=== PATIENT | female | born 1955 | race Caucasian/White ===

== ENCOUNTER 2021-01-26 01:27 | Inpatient (IN) | payer MEDICARE, MEDICAID, SELFPAY ==
[2021-01-26] VITALS (8 sets, daily range): BP systolic 106–180; BP diastolic 53–78; PULSE 55–78; RESP 15–20; TEMP 36.1–36.9; O2SAT 92–95
--- NOTE | ~2021-01-26 | XR_ITS ---
EXAMINATION: XR RIGHT HIP WITH AP PELVIS XR FEMUR, RIGHT CLINICAL INFORMATION: Fall, right hip and right femur pain rule out fracture. COMPARISON: 10/12/2017 TECHNIQUE: AP and frog-leg lateral views of the right hip and an AP view of the pelvis. AP and lateral views of the right femur. FINDINGS: There is a transverse subcapital fracture of the right proximal femur with minimal valgus angulation at the fracture site. No additional acute fractures are identified. Bones are osteopenic. There is mild osteophytes in the hips and SI joints. Enthesopathic spurring is present at the greater trochanters with fragmentation at the right greater trochanter. Degenerative spondylosis is present in the lower lumbar spine. Calcific at the sclerosis is present in the femoral and iliac arteries. Calcific atherosclerosis is present within the superficial femoral and popliteal arteries. The distal femur is intact. Imaged portion of the right knee joint is unremarkable. XR/XR hip RT w PEL1V IMPRESSION: Minimally displaced subcapital fracture of the right proximal femur. No additional fractures.
--- NOTE | ~2021-01-26 | FL_ITS ---
EXAMINATION: XR FLUOROSCOPY WITH IMAGES CLINICAL INFORMATION: Subcapital fracture of the right proximal femur. Fluoroscopic assistance is provided at the time of the surgery. COMPARISON: Right hip done on 01/26/2021. TECHNIQUE: Fluoroscopy performed by Dr. Tonny Adorno. Fluoroscopy time: 0.7 minutes DAP: 24.7 mGycm2 Images: 3 FINDINGS: Fluoroscopic spot radiographs shows interval placement of 3 radiopaque screws across the site of previously detected fracture. Radiopaque screws are in satisfactory position and appear intact. FL/FL guidance in OR IMPRESSION: Postsurgical changes of screw fixation of previously documented subcapsular fracture of the right proximal femur with intact hardware and satisfactory alignment. Please refer to the operative note for further full details.
--- NOTE | ~2021-01-26 | XR_ITS ---
EXAMINATION: XR RIGHT HIP WITH AP PELVIS XR FEMUR, RIGHT CLINICAL INFORMATION: Fall, right hip and right femur pain rule out fracture. COMPARISON: 10/12/2017 TECHNIQUE: AP and frog-leg lateral views of the right hip and an AP view of the pelvis. AP and lateral views of the right femur. FINDINGS: There is a transverse subcapital fracture of the right proximal femur with minimal valgus angulation at the fracture site. No additional acute fractures are identified. Bones are osteopenic. There is mild osteophytes in the hips and SI joints. Enthesopathic spurring is present at the greater trochanters with fragmentation at the right greater trochanter. Degenerative spondylosis is present in the lower lumbar spine. Calcific at the sclerosis is present in the femoral and iliac arteries. Calcific atherosclerosis is present within the superficial femoral and popliteal arteries. The distal femur is intact. Imaged portion of the right knee joint is unremarkable. XR/XR femur RT 2V IMPRESSION: Minimally displaced subcapital fracture of the right proximal femur. No additional fractures.
[2021-01-26] MEDS: oxyCODONE HCl Immed Release 5 MG TABLET PO (02:31)
[2021-01-26] MEDS: Acetaminophen 325 MG TABLET 975 MG PO (02:31)
--- NOTE | 2021-01-26 03:42 | ECG_ITS ---
Test Reason : FALL Blood Pressure : / mmHG Vent. Rate : 081 BPM Atrial Rate : 081 BPM P-R Int : 164 ms QRS Dur : 094 ms QT Int : 404 ms P-R-T Axes : 055 005 093 degrees QTc Int : 469 ms Normal sinus rhythm Possible Left atrial enlargement Nonspecific T wave abnormality Abnormal ECG When compared with ECG of 04-JAN-2018 11:30, Nonspecific T wave abnormality now evident in Lateral leads Heart rate has increased Referred By: Michele Gatica Electronically Signed By:JOHNIE CUEVAS MD
--- NOTE | 2021-01-26 04:01 | ED.FALL ---
HPI - Fall General Chief Complaint: Fall Stated Complaint: R hip/leg pain S/P fall (from snf) Time Seen by Provider: 01/26/21 02:15 Source: patient Mode of arrival: EMS Limitations: no limitations History of Present Illness HPI Narrative: 65-year-old female who presents emergency department for evaluation right hip and leg pain after fall. Patient states that she was outside smoking when a raccoon started chasing her. She states that she ran, tripped and fell landing on her right side. She denied any head injury or loss of consciousness. She states that immediately after the fall she was having pain in her right leg and was unable to stand and walk. She called an ambulance and was brought to the emergency department. Here in the emergency department she was complaining right hip and right thigh pain. She states the pain is a constant, throbbing pain which is 9/10 at its worst. The pain is worse with movement. She denied being ill in any way prior to the fall. Related Data Home Medications Medication Instructions Recorded Confirmed cholecalciferol (vitamin D3) 50 1 tab PO DAILY 01/26/21 01/26/21 mcg (2,000 unit) tablet (Vitamin D3) divalproex 250 mg tablet,delayed 3 tab PO BID 01/26/21 01/26/21 release fluoxetine 40 mg capsule 1 cap PO DAILY 01/26/21 01/26/21 folic acid 1 mg tablet 1 tab PO DAILY 01/26/21 01/26/21 lisinopril 10 mg tablet 1 tab PO DAILY 01/26/21 01/26/21 phenytoin sodium extended 100 mg 1 tab PO QID 01/26/21 01/26/21 capsule pravastatin 20 mg tablet 1 tab PO DAILY 01/26/21 01/26/21 Allergies Allergy/AdvReac Type Severity Reaction Status Date / Time azithromycin [AZITHROMYCIN] Allergy Unknown HIVES Unverified 12/06/19 16:49 Review of Systems Review of Systems: Yes all other systems are reviewed and are negative [facility] Past Medical History [facility] Narrative: Past medical history: Diabetes, hypertension, myocardial infarction 10 years prior. Past surgical history: None. Social history: The patient smokes 1/2 pack of cigarettes per day times 40 years. She denies alcohol use. She denies drug use. Social History Social History Alcohol intake: never Patient Tobacco Use Status: Current everyday Tobacco user Use of substances other than those prescribed or required for medical reasons: No Advance Directives: No Advance Directives Information Provided: No Physical Exam Vital Signs: Vital Signs: Last Vital Signs Temp 97.8 F 01/26/21 01:43 Pulse 78 01/26/21 03:42 Resp 15 01/26/21 03:42 BP 166/67 H 01/26/21 03:42 Pulse Ox 92 01/26/21 03:42 Body Mass Index 30.0 Const: General: cooperative and no acute distress Orientation/consciousness: oriented to person and oriented to place Limitations: no limitations HENMT: Head: Yes normal to inspection, Yes normocephalic and Yes atraumatic Ears: external ears normal General nose exam: Normal external nose present Face and sinus: Yes normal facial exam Mouth: Normal oral and palatal mucosa present Throat: Yes posterior oropharynx normal Eyes: General: appearance normal, both eyes and all related structures Pupils: Equal, round and reactive pupils present Neck: Neck: Yes normal visual inspection, Yes no lymphadenopathy, Yes trachea midline and Yes supple Chest: Chest palpation & inspection: normal inspection of the chest and normal palpation of entire chest wall Resp: Effort & Inspection: normal respiratory effort and able to speak in complete sentences Auscultation: clear to auscultation bilaterally Cardio: Rate: regular rate Rhythm: regular rhythm Heart sounds: S1 normal heart sound present, S2 normal heart sound present and no murmurs GI: Inspection: Yes normal to inspection Palpation (GI): Soft to palpation, nontender and no guarding Auscultation: normal bowel sounds : General: Yes no CVA tenderness Back/Spine/Pelvis: Back: no CVA tenderness Skin: General skin exam: no rashes or lesions noted Neuro: General: oriented to person and oriented to place Cranial nerves: Yes CN's II-XII intact bilaterally and Yes Equal, round and reactive pupils present Cognition (Neuro): normal cognition Motor exam (neuro): 5/5 motor strength present throughout Extrem: Other: Patient has pain with palpation over her right hip joint and along the right femur to the knee. Her extremities neurovascularly intact. Psych: Appearance: grossly normal Speech and movement: Normal speech and movement present Affect: normal affect Attitude: cooperative Thought process: Normal thought process present Thought content: Normal thought content present Course Course Course Narrative: 65-year-old female who presents emergency department for evaluation of right hip and right lower extremity pain after falling just prior to coming to the emergency department. Patient's examination did reveal tenderness palpation of the right hip in the right femur. X-rays were obtained and the patient has a right subcapital proximal femur fracture, no pelvic fracture was seen. Patient was initially treated with Tylenol and oxycodone. This gave her some relief the pain but the pain persisted therefore an IV was started and she was given morphine 4 mg IV. I will discuss the patient's presentation with the covering orthopedic provider and with the hospitalist. 0414: The patient's case was presented to the covering orthopedic physician shipping assistant,Inge Ritter. She recommended that the patient be admitted to the hospital service with orthopedic consult. 0415: The patient was presented to the covering hospitalist, Dr. Medina the patient will be admitted for further treatment. MDM - Fall Lab Data Result diagrams: 01/26/21 04:00 01/26/21 04:00 Labs: Lab Results 01/26/21 Range/Units 04:00 WBC 9.3 (4.8-10.8) X10*3/uL RBC 4.18 L (4.20-5.50) X10*6/uL Hgb 14.2 (12.0-16.0) g/dl Hct 41.7 (37.0-47.0) % MCV 99.8 H (80.0-98.0) fL MCH 34.0 H (27.0-33.0) pg MCHC 34.1 (31.0-35.0) g/dl RDW 13.2 (11.0-16.0) % Plt Count 182 (160-400) X10*3/uL MPV 9.9 (9.4-12.3) fL Immature Gran % (Auto) 0.4 (0.0-0.4) % Neut % (Auto) 84.2 H (45-73) % Lymph % (Auto) 9.7 L (20-40) % [place] % (Auto) 5.4 (2-11) % Eos % (Auto) 0.2 (0-4) % Baso % (Auto) 0.1 (0-2) % Lymph # (Auto) 0.9 L (1.2-4.9) X10*3/uL [place] # (Auto) 0.5 (0.1-1.2) X10*3/uL Eos # (Auto) 0.0 (0.0-0.4) X10*3/uL Baso # (Auto) 0.0 (0.0-0.2) X10*3/uL Abs Immat Gran (auto) 0.04 H (0.00-0.03) X10*3/uL Absolute Neuts (auto) 7.8 (2.0-8.3) x10*3/uL Absolute Nucleated RBC 0.000 (0.0-0.012) X10*3/uL Nucleated RBC % (auto) 0.0 (0.0-0.2) /100WBC ECG Data Attestation: I personally reviewed and interpreted this ECG as follows: Interpretation: 0418: Normal sinus rhythm rate of 81, normal AL interval, QRS duration and QTC interval, no ST segment elevation, less than [address] segment depression in leads 1, 2, V4, V5 and V6, no PACs, no PVCs, no old EKG for comparison Discharge Plan Discharge Prescriptions: No Action fluoxetine 40 mg capsule 1 cap PO DAILY RF: 0 divalproex 250 mg tablet,delayed release (DR/EC) 3 tab PO BID RF: 0 phenytoin sodium extended 100 mg capsule 1 tab PO QID RF: 0 lisinopril 10 mg tablet 1 tab PO DAILY RF: 0 folic acid 1 mg tablet 1 tab PO DAILY RF: 0 pravastatin 20 mg tablet 1 tab PO DAILY RF: 0 cholecalciferol (vitamin D3) [Vitamin D3] 50 mcg (2,000 unit) tablet 1 tab PO DAILY RF: 0
[2021-01-26 04:05] LABS: Basophils Percent Auto 0.1 % (0-2); Eosinophils Percent Auto 0.2 % (0-4); Hematocrit 41.7 % (37.0-47.0); Hemoglobin 14.2 g/dl (12.0-16.0); Imm Gran Abs Auto 0.04 X10*3/uL (0.00-0.03); Imm Gran Pct Auto 0.4 % (0.0-0.4); Lymphocytes Absolute Auto 0.9 X10*3/uL (1.2-4.9); Lymphocytes Percent Auto 9.7 % (20-40); MANUAL DIFF FLAG NO; Mean Corpuscular HGB Conc 34.1 g/dl (31.0-35.0); Mean Corpuscular Volume 99.8 fL (80.0-98.0); Mean Platelet Volume 9.9 fL (9.4-12.3); Monocytes Absolute Auto 0.5 X10*3/uL (0.1-1.2); Monocytes Percent Auto 5.4 % (2-11); Neutrophils Absolute Auto 7.8 x10*3/uL (2.0-8.3); Neutrophils Percent Auto 84.2 % (45-73); Platelet Count 182 X10*3/uL (160-400); Red Blood Count 4.18 X10*6/uL (4.20-5.50); Red Cell Distribution Width 13.2 % (11.0-16.0); White Blood Count 9.3 X10*3/uL (4.8-10.8)
[2021-01-26 04:12] LABS: INTERNATIONAL NORM RATIO 1.1 (0.9-1.1); Prothrombin Time 12.9 SEC (9.9-13.0)
[2021-01-26 04:21] LABS: COVID-19 Test Negative (Negative); IDNOW Serial# 9DD0AD1C
[2021-01-26 04:25] LABS: Alanine Aminotransferase 20 U/L (0-31); Albumin Level 3.9 g/dL (3.5-5.0); Alkaline Phosphatase 101 U/L (39-117); Anion Gap 13 (12-20); Aspartate Amino Transferase 23 U/L (5-31); Bilirubin Total 0.4 mg/dL (0.0-1.0); Blood Urea Nitrogen 20 mg/dL (9-16); Calcium 8.5 mg/dL (8.4-10.2); Carbon Dioxide 27 mmol/L (22-29); Chloride 103 mmol/L (96-108); Estimated Glomerular Filt Rate 60; Glucose Random 148 mg/dL (60-115); Potassium 4.4 mmol/L (3.3-5.1); Sodium 139 mmol/L (135-145); Total Protein 6.8 g/dL (6.5-8.0)
[2021-01-26] MEDS: Morphine Sulfate 4 MG/ML CARTRIDGE IVPUSH ×3 (04:30→20:28)
[2021-01-26 04:34] LABS: Appearance Urine CLEAR; Color Urine YELLOW; Glucose Urine UA NEG (NEG); Leukocyte Esterase Urine NEG (NEG); Nitrite Urine NEG (NEG); PH 7.5 (5.0-8.0); Specific Gravity - Urine 1.015 (1.005-1.025); UACC Culture Trigger NO; Urine Blood 1+ (NEG); Urine Ketones NEG (NEG); Urine Protein NEG (NEG-TRACE)
[2021-01-26 04:35] LABS: Troponin-I High Sensitivity 13.5 ng/L (<3.5-17.0)
[2021-01-26 04:40] LABS: Bacteria Urine TRACE /LPF; WBC Urine 0-2 /HPF (0-4)
--- NOTE | 2021-01-26 05:29 | PM.IMHP ---
History of Present Illness Date of Service: 01/26/21 Chief Complaint: Fall This is a 65-year-old female with past medical history of hypertension, seizure disorder, who presents to hospital after experiencing a fall. Patient reports that she was outside smoking her cigarettes, when she was attacked and chased by raccoon's. She tripped and fell and immediately had Pain in the right hip. She did not experience any head trauma, no loss of consciousness, and reports that she was in good health prior to this. She denies having any numbness tingling or weakness. No chest pain, no abdominal pain, no nausea or vomiting no diarrhea or constipation, no urinary symptoms. Vitals on arrival to the ED stable with an elevated blood pressure Labs reviewed generally unremarkable UA positive for blood and RBC with no infection. X-ray of the hip shows minimally displaced subcapital fracture of the right proximal femur Orthopedic surgery consulted, patient will be admitted for further man Review of Systems Review of Systems: Yes all other systems are reviewed and are negative [facility] Medical History (Updated 01/26/21 @ 05:35 by Sharon Medina MD) History of coronary artery disease Hypertension Myocardial infarct Seizure disorder Family History (Updated 01/26/21 @ 05:34 by Sharon Medina MD) Other Diabetes Hypertension Surgical History (Updated 01/26/21 @ 05:34 by Sharon Medina MD) No pertinent past surgical history Social History Alcohol intake: never Patient Tobacco Use Status: Current everyday Tobacco user Use of substances other than those prescribed or required for medical reasons: No Advance Directives: No Advance Directives Information Provided: No Meds Allergies Allergy/AdvReac Type Severity Reaction Status Date / Time azithromycin [AZITHROMYCIN] Allergy Unknown HIVES Unverified 12/06/19 16:49 Home Medications Medication Instructions Recorded Confirmed Last Taken Type cholecalciferol (vitamin D3) 50 1 tab PO DAILY 01/26/21 01/26/21 01/25/21 History mcg (2,000 unit) tablet (Vitamin D3) divalproex 250 mg tablet,delayed 3 tab PO BID 01/26/21 01/26/21 01/25/21 History release fluoxetine 40 mg capsule 1 cap PO DAILY 01/26/21 01/26/21 01/25/21 History folic acid 1 mg tablet 1 tab PO DAILY 01/26/21 01/26/21 01/25/21 History lisinopril 10 mg tablet 1 tab PO DAILY 01/26/21 01/26/21 01/25/21 History phenytoin sodium extended 100 mg 1 tab PO QID 01/26/21 01/26/21 01/25/21 History capsule pravastatin 20 mg tablet 1 tab PO DAILY 01/26/21 01/26/21 01/25/21 History Physical Exam Vital Signs and Narrative: Vital Signs: Last Vital Signs Temp 97.8 F 01/26/21 01:43 Pulse 78 01/26/21 03:42 Resp 15 01/26/21 04:30 BP 166/67 H 01/26/21 03:42 Pulse Ox 92 01/26/21 03:42 Body Mass Index 30.0 Const: General: cooperative and no acute distress Orientation/consciousness: patient oriented x3 Eyes: General: appearance normal, both eyes and all related structures Pupils: Equal, round and reactive pupils present Resp: Effort & Inspection: normal respiratory effort Auscultation: clear to auscultation bilaterally Cardio: Rate: regular rate Rhythm: regular rhythm GI: Palpation (GI): Soft to palpation Auscultation: normal bowel sounds Skin: General skin exam: no rashes or lesions noted Neuro: General: patient oriented x3 Cranial nerves: Yes Equal, round and reactive pupils present Cognition (Neuro): normal cognition Extrem: Other: Right hip tenderness, General: Yes no pedal edema Results Labs CBC and Chem 7: 01/26/21 04:00 01/26/21 04:00 Labs: Laboratory Results - last 24 hr 01/26/21 01/26/21 01/26/21 04:00 04:00 04:00 MCV 99.8 H MCH 34.0 H MCHC 34.1 RDW 13.2 Plt Count 182 MPV 9.9 Immature Gran % (Auto) 0.4 Neut % (Auto) 84.2 H Lymph % (Auto) 9.7 L [place] % (Auto) 5.4 Eos % (Auto) 0.2 Baso % (Auto) 0.1 Lymph # (Auto) 0.9 L [place] # (Auto) 0.5 Eos # (Auto) 0.0 Baso # (Auto) 0.0 Abs Immat Gran (auto) 0.04 H Absolute Neuts (auto) 7.8 Absolute Nucleated RBC 0.000 Nucleated RBC % (auto) 0.0 PT INR APTT Anion Gap 13 Estim Creat Clear Calc 60.0 Estimated GFR 60 Random Glucose 148 H Calcium 8.5 Total Bilirubin 0.4 AST 23 ALT 20 Alkaline Phosphatase 101 Troponin I High Sens Total Protein 6.8 Albumin 3.9 Urine Color Urine Appearance Urine pH Ur Specific [place] Urine Protein Urine Glucose (UA) Urine Ketones Urine Blood Urine Nitrite Ur Leukocyte Esterase Urine RBC Urine WBC Ur Squamous Epith Cells Urine Bacteria COVID-19 (MAJOR) Negative COVID-19 Clin Com See Note Blood Type Antibody Screen 01/26/21 01/26/21 01/26/21 04:00 04:00 04:14 MCV MCH MCHC RDW Plt Count MPV Immature Gran % (Auto) Neut % (Auto) Lymph % (Auto) [place] % (Auto) Eos % (Auto) Baso % (Auto) Lymph # (Auto) [place] # (Auto) Eos # (Auto) Baso # (Auto) Abs Immat Gran (auto) Absolute Neuts (auto) Absolute Nucleated RBC Nucleated RBC % (auto) PT 12.9 INR 1.1 APTT 37.0 Anion Gap Estim Creat Clear Calc Estimated GFR Random Glucose Calcium Total Bilirubin AST ALT Alkaline Phosphatase Troponin I High Sens 13.5 Total Protein Albumin Urine Color YELLOW Urine Appearance CLEAR Urine pH 7.5 Ur Specific [place] 1.015 Urine Protein NEG Urine Glucose (UA) NEG Urine Ketones NEG Urine Blood 1+ H Urine Nitrite NEG Ur Leukocyte Esterase NEG Urine RBC 5-9 H Urine WBC 0-2 Ur Squamous Epith Cells NONE Urine Bacteria TRACE COVID-19 (MAJOR) COVID-19 Clin Com Blood Type Antibody Screen 01/26/21 04:24 MCV MCH MCHC RDW Plt Count MPV Immature Gran % (Auto) Neut % (Auto) Lymph % (Auto) [place] % (Auto) Eos % (Auto) Baso % (Auto) Lymph # (Auto) [place] # (Auto) Eos # (Auto) Baso # (Auto) Abs Immat Gran (auto) Absolute Neuts (auto) Absolute Nucleated RBC Nucleated RBC % (auto) PT INR APTT Anion Gap Estim Creat Clear Calc Estimated GFR Random Glucose Calcium Total Bilirubin AST ALT Alkaline Phosphatase Troponin I High Sens Total Protein Albumin Urine Color Urine Appearance Urine pH Ur Specific [place] Urine Protein Urine Glucose (UA) Urine Ketones Urine Blood Urine Nitrite Ur Leukocyte Esterase Urine RBC Urine WBC Ur Squamous Epith Cells Urine Bacteria COVID-19 (MAJOR) COVID-19 Clin Com Blood Type A Positive Antibody Screen NEGATIVE Imaging Radiologist's Impressions: Impressions Femur X-Ray 01/26/21 02:22 IMPRESSION: Minimally displaced subcapital fracture of the right proximal femur. No additional fractures. Hip/Pelvis X-Ray 01/26/21 02:22 IMPRESSION: Minimally displaced subcapital fracture of the right proximal femur. No additional fractures. Assessment and Plan (1) Fall: Qualifiers: Encounter type: initial encounter Qualified Code(s): W19.XXXA - Unspecified fall, initial encounter Status: Acute (2) Closed subcapital fracture of femur: Qualifiers: Encounter type: initial encounter Laterality: right Qualified Code(s): S72.011A - Unspecified intracapsular fracture of right femur, initial encounter for closed fracture Status: Acute 65-year-old female with past medical history of coronary artery disease status post [place], 10 years ago, hypertension, and seizure disorder presents to the hospital after a fall found to have proximal femur fracture # proximal femur fracture/right - secondary to mechanical fall - pain is well controlled at this - will continue pain manage - consult orthopedic - keep NPO # hypertension - elevated - most likely secondary to pain - continue home medication # history of seizure disorder - stable - continue Depakote and phenytoin # history of coronary artery disease - no significant changes on EKG - no chest pain - continue to monitor # hyperlipidemia - continues statin DVT prophylaxis: SCDs Quality Stroke Does the patient have a stroke diagnosis?: No VTE Prior VTE?: No VTE Risk Level:: Medical - moderate - high VTE Device Contraindication: N/A - Device Ordered VTE Drug Contraindication: Treatment Not Indicated
[2021-01-26 07:11] LABS: MANUAL DIFF FLAG NO
[2021-01-26 07:23] LABS: Basophils Percent Auto 0.3 % (0-2); Eosinophils Percent Auto 0.5 % (0-4); Hematocrit 37.3 % (37.0-47.0); Hemoglobin 12.6 g/dl (12.0-16.0); Imm Gran Abs Auto 0.02 X10*3/uL (0.00-0.03); Imm Gran Pct Auto 0.3 % (0.0-0.4); Lymphocytes Absolute Auto 0.8 X10*3/uL (1.2-4.9); Lymphocytes Percent Auto 11.6 % (20-40); Mean Corpuscular HGB Conc 33.8 g/dl (31.0-35.0); Mean Corpuscular Hemoglobin 33.4 pg (27.0-33.0); Mean Corpuscular Volume 98.9 fL (80.0-98.0); Mean Platelet Volume 10.4 fL (9.4-12.3); Monocytes Absolute Auto 0.5 X10*3/uL (0.1-1.2); Neutrophils Absolute Auto 5.3 x10*3/uL (2.0-8.3); Neutrophils Percent Auto 79.3 % (45-73); Platelet Count 146 X10*3/uL (160-400); Red Blood Count 3.77 X10*6/uL (4.20-5.50); White Blood Count 6.6 X10*3/uL (4.8-10.8)
[2021-01-26 07:55] LABS: Anion Gap 12 (12-20); Blood Urea Nitrogen 19 mg/dL (9-16); Calcium 7.9 mg/dL (8.4-10.2); Carbon Dioxide 24 mmol/L (22-29); Chloride 106 mmol/L (96-108); Creatinine Clr Calc Pharmacy 73.2; Estimated Glomerular Filt Rate > 60; Glucose Random 130 mg/dL (60-115); Potassium 4.3 mmol/L (3.3-5.1); Sodium 138 mmol/L (135-145)
--- NOTE | 2021-01-26 08:07 | P.HPOP_ITS ---
History of Present Illness History of Present Illness Date of Service: 01/26/21 <Inge Ritter PA-C - Last Filed: 01/26/21 08:13> 01/27/21 <Tonny Adorno MD - Last Filed: 01/27/21 12:20> Chief complaint: Hip Fracture <Inge Ritter PA-C - Last Filed: 01/26/21 08:13> Narrative: Cielo Thomas is a 65 year old female with a past medical history significant for DM, HTN, [place] 10 yrs ago, Seizures with the last one being 3 years ago. She is not on any blood thinners. She presented to the ED last night after sustaining a mechanical fall after trying to run fro a racoon while outside smoking. She states that she lives at the [facility]. She states that she walks with a cane at baseline due to instability. She is a 1/2 ppd smoker for the past 40 years. X-rays obtained in the ED reveal a right hip subcapital fracture. She was admitted to the hospital service with orthopedic consult. <Inge Ritter PA-C - Last Filed: 01/26/21 08:13> Review of Systems Review of Systems: Yes all other systems are reviewed and are negative <Inge Ritter PA-C - Last Filed: 01/26/21 08:13> [facility] Past Medical History Medical History: Medical History History of coronary artery disease Hypertension Myocardial infarct Non-rheumatic aortic stenosis Seizure disorder <Inge Ritter PA-C - Last Filed: 01/26/21 08:13> Family History Family History: Family History (Updated 01/26/21 @ 10:35 by Rodolfo Ramos MD) Mother No problems noted. Father No problems noted. <Inge Ritter PA-C - Last Filed: 01/26/21 08:13> Surgical History Surgical History: Surgical History No pertinent past surgical history <Inge Ritter PA-C - Last Filed: 01/26/21 08:13> Social History Social History: Social History Household Members: Other Housing: Other Do you presently have visiting nurse or other home services: No Alcohol intake: never Patient Tobacco Use Status: Current everyday Tobacco user Tobacco use type: Cigarette Cigarette Packs Per Day: 0.5 Cigarettes Per Day: 10.0 Second Hand Smoke Exposure: No service: No Current occupational status: disabled <Inge Ritter PA-C - Last Filed: 01/26/21 08:13> Meds Allergies/Adverse reactions: Allergies Allergy/AdvReac Type Severity Reaction Status Date / Time azithromycin [AZITHROMYCIN] Allergy Unknown HIVES Verified 01/27/21 11:56 <Inge Ritter PA-C - Last Filed: 01/26/21 08:13> Active Medications: Current Medications Acetaminophen (Acetaminophen 325 Mg Tablet) 650 mg PO Q6H PRN PRN Reason: Pain, Mild (Pain Scale 1-3) Divalproex Sodium (Divalproex Sodium 250 Mg Tablet.Dr) 750 mg PO BID [facility] Fluoxetine HCl (Fluoxetine Hcl 20 Mg Capsule) 40 mg PO DAILY [facility] Folic Acid (Folic Acid 1 Mg Tablet) 1 mg PO DAILY [facility] Lisinopril (Lisinopril 10 Mg Tablet) 10 mg PO DAILY [facility]; Protocol Morphine Sulfate (Morphine Sulfate 4 Mg/Ml Cartridge) 4 mg IVPUSH Q4H PRN; Protocol PRN Reason: Pain, Severe (Pain Scale 7-10) Ondansetron HCl (Ondansetron Hcl 4 Mg/2 Ml Vial) 4 mg IVPUSH Q8H PRN PRN Reason: Nausea and Vomiting Phenytoin Sodium (Phenytoin Sodium Extended 100 Mg Capsule) 100 mg PO QID [facility] Pravastatin Sodium (Pravastatin Sodium 20 Mg Tablet) 20 mg PO DAILY [facility] Sodium Chloride (0.9 % Sodium Chloride Flush 3 Ml Syringe) 3 ml IVFLUSH QSHIFT [facility] Last Admin: 01/26/21 07:12 Dose: Not Given Documented by: Vitamin D (Cholecalciferol (Vitamin D3) 25 Mcg Tablet) 50 mcg PO DAILY [facility] <Inge Ritter PA-C - Last Filed: 01/26/21 08:13> Home medications: Home Medications Medication Instructions Recorded Confirmed Last Taken Type cholecalciferol (vitamin D3) 50 1 tab PO DAILY 01/26/21 01/26/21 01/25/21 History mcg (2,000 unit) tablet (Vitamin D3) divalproex 250 mg tablet,delayed 3 tab PO BID 01/26/21 01/26/21 01/25/21 History release fluoxetine 40 mg capsule 1 cap PO DAILY 01/26/21 01/26/21 01/25/21 History folic acid 1 mg tablet 1 tab PO DAILY 01/26/21 01/26/21 01/25/21 History lisinopril 10 mg tablet 1 tab PO DAILY 01/26/21 01/26/21 01/25/21 History phenytoin sodium extended 100 mg 1 tab PO QID 01/26/21 01/26/21 01/25/21 History capsule pravastatin 20 mg tablet 1 tab PO DAILY 01/26/21 01/26/21 01/25/21 History <Inge Ritter PA-C - Last Filed: 01/26/21 08:13> Physical Exam Vital Signs: Vital Signs: Last Vital Signs Temp 97.8 F 01/26/21 05:35 Pulse 73 01/26/21 05:35 Resp 15 01/26/21 05:35 BP 106/53 L 01/26/21 05:35 Pulse Ox 92 01/26/21 05:35 Body Mass Index 30.0 <Inge Ritter PA-C - Last Filed: 01/26/21 08:13> Const: General: cooperative, healthy appearing and no acute distress <Inge Ritter PA-C - Last Filed: 01/26/21 08:13> Resp: Effort & Inspection: normal respiratory effort and able to speak in complete sentences <Inge Ritter PA-C - Last Filed: 01/26/21 08:13> Cardio: Rate: regular rate <CAREN Gibbs Last Filed: 01/26/21 08:13> Peripheral pulses: Peripheral pulses 2+ throughout <CAREN Gibbs Last Filed: 01/26/21 08:13> GI: Palpation (GI): Soft to palpation <PAM GibbsMilagro - Last Filed: 01/26/21 08:13> Skin: Lesions: no lesions <Inge TorrezlburtPAMRosemaryVincent - Last Filed: 01/26/21 08:13> Rashes: no rashes <Inge TorrezCAREN martinez - Last Filed: 01/26/21 08:13> Extrem: Other: right hip skin is intact with no abrasions. She is able to perform active hip flexion with little pain. Sensation intact. Able to dorsiflex and plantarflex. Pedal pulse intact. <Inge Torrezlburt CAREN - Last Filed: 01/26/21 08:13> Results Labs Result Diagrams: : 01/27/21 07:48 01/27/21 07:48 <Inge Torrezlburt LAMVincent - Last Filed: 01/26/21 08:13> Labs: Abnormal lab results 01/26/21 01/26/21 01/26/21 Range/Units 04:00 04:00 04:14 RBC 4.18 L (4.20-5.50) X10*6/uL MCV 99.8 H (80.0-98.0) fL MCH 34.0 H (27.0-33.0) pg Plt Count (160-400) X10*3/uL Neut % (Auto) 84.2 H (45-73) % Lymph % (Auto) 9.7 L (20-40) % Lymph # (Auto) 0.9 L (1.2-4.9) X10*3/uL Abs Immat Gran (auto) 0.04 H (0.00-0.03) X10*3/uL BUN 20 H (9-16) mg/dL Random Glucose 148 H (60-115) mg/dL Calcium (8.4-10.2) mg/dL Urine Blood 1+ H (NEG) Urine RBC 5-9 H (0) /HPF 01/26/21 01/26/21 Range/Units 07:03 07:03 RBC 3.77 L (4.20-5.50) X10*6/uL MCV 98.9 H (80.0-98.0) fL MCH 33.4 H (27.0-33.0) pg Plt Count 146 L (160-400) X10*3/uL Neut % (Auto) 79.3 H (45-73) % Lymph % (Auto) 11.6 L (20-40) % Lymph # (Auto) 0.8 L (1.2-4.9) X10*3/uL Abs Immat Gran (auto) (0.00-0.03) X10*3/uL BUN 19 H (9-16) mg/dL Random Glucose 130 H (60-115) mg/dL Calcium 7.9 L D (8.4-10.2) mg/dL Urine Blood (NEG) Urine RBC (0) /HPF H & H 01/26/21 01/26/21 Range/Units 04:00 07:03 Hgb 14.2 12.6 (12.0-16.0) g/dl Hct 41.7 37.3 (37.0-47.0) % Coagulation 01/26/21 Range/Units 04:00 INR 1.1 (0.9-1.1) All other labs normal. <Inge Ritter PA-C - Last Filed: 01/26/21 08:13> Assessment and Plan (1) Closed subcapital fracture of femur: Qualifiers: Encounter type: initial encounter Laterality: right Qualified Code(s): S72.011A - Unspecified intracapsular fracture of right femur, initial encounter for closed fracture <Inge Ritter PA-C - Last Filed: 01/26/21 08:13> Status: Acute <Inge Ritter PA-C - Last Filed: 01/26/21 08:13> I discussed the case with Dr. Adorno and explained the extent of the injury to the patient and options available which include surgical inte rvention. I explained the procedure in detail along with the length of recovery and rehab course. I explained the risk, benefits and alternatives. Risk including, but not limited to infection, blood clots, bleeding, non union or malunion and nerve/tissue damage to surrounding areas. I answered all their questions and with their understanding they have consented to move forward with Operative Fixation of the right hip. The patient will be T&S, med clearance obtained and NPO after midnight. The patient reports that she signs her own consents. <Inge Ritter PA-C - Last Filed: 01/26/21 08:13> Quality Stroke Does the patient have a stroke diagnosis?: No <Inge Ritter PA-C - Last Filed: 01/26/21 08:13> VTE Prior VTE?: No <Inge Ritter PA-C - Last Filed: 01/26/21 08:13> VTE Risk Level:: Medical - moderate - high <Inge Ritter PA-C - Last Filed: 01/26/21 08:13> VTE Device Contraindication: N/A - Device Ordered <Inge Ritter PA-C - Last Filed: 01/26/21 08:13> VTE Drug Contraindication: Treatment Not Indicated <Inge Ritter PA-C - Last Filed: 01/26/21 08:13> Procedures Date of Service Date of Service: 01/26/21 <Inge Ritter PA-C - Last Filed: 01/26/21 08:13>
[2021-01-26] MEDS: lisinopriL 10 MG TABLET PO (09:21)
[2021-01-26] MEDS: Divalproex Sodium 250 MG TABLET.DR 750 MG PO ×2 (09:22→20:18)
[2021-01-26] MEDS: Folic Acid 1 MG TABLET PO (09:23)
[2021-01-26] MEDS: FLUoxetine HCl 20 MG CAPSULE 40 MG PO (09:23)
[2021-01-26] MEDS: Pravastatin Sodium 20 MG TABLET PO (09:23)
[2021-01-26] MEDS: Phenytoin Sodium Extended 100 MG CAPSULE PO ×4 (09:29→20:18)
[2021-01-26] MEDS: Cholecalciferol (Vitamin D3) 25 MCG TABLET 50 MCG PO (09:29)
--- NOTE | 2021-01-26 09:34 | CA_ITS ---
Transthoracic Echocardiogram Patient (Last, First, Middle): Cielo Thomas C Gender: Female Date of : 1955 Age: 65 Procedure Date: 01/26/2021 Procedure Type: Transthoracic Echocardiogram Location: ER Height: 162.56 cm Weight: 79.38 kg BSA: 1.85 m2 Heart Rate: bpm BP: 108 / 54 mmHg Air Quality Consultant: Referring MD: Stephanie OROZCO Symptoms: h/o CAD; murmur; preop Study Quality: Fair ECG Rhythm: Sinus Conclusions: - The left ventricular systolic function is normal. The calculated ejection fraction is 64% by biplane method. - The basal inferior segment is akinetic. - There is mild aortic valve stenosis. Findings Left Ventricle Normal left ventricular cavity size. There is moderately increased left ventricular wall thickness. The left ventricular systolic function is normal. The calculated ejection fraction is 64% by biplane method. There is no evidence of regional wall motion abnormalities. E/E prime ratio is >15, consistent with elevated filling pressures. Evidence suggests grade I (mild) diastolic dysfunction. Wall Motion Rest Echo Findings The basal inferior segment is akinetic. Right Ventricle Normal right ventricular cavity size and systolic function. Atria Both atria are normal in size. Aortic Valve There is mild aortic valve stenosis. The peak aortic velocity is 2.13 m/s with a calculated peak gradient of 18 mmHg. The mean gradient is 9 mmHg. The aortic valve area is 2.08 cm2. Mitral Valve There is mild mitral annular calcification. There is trace mitral valve regurgitation. There is no mitral valve stenosis. Pulmonic Valve The pulmonic valve was not well visualized. Tricuspid Valve Normal tricuspid valve structure. There is trace tricuspid valve regurgitation. The pulmonary artery systolic pressure is normal. Great Vessels The aortic annulus is normal in size. Venous The inferior vena cava is normal in size and collapses greater than 50% with inspiration. Pericardium/Pleural There is no evidence of pericardial effusion. Prior Study Comparison No significant change compared to prior study dated: 09/15/2016. Suggestion of wall motion abnormality seen in prior study. Measurements 2D Linear Measurements IVSd: 1.35 0.6-0.9/0.6-1.0 cm LVIDd: 4.78 3.9-5.3/4.2-5.9 cm LVIDd Index: 2.58 2.4-3.2/2.2-3.1 cm/m2 LVIDs: 2.82 2.0-3.6 cm LVPWd: 1.33 0.7-1.1 cm Ao Root: 2.80 2.1-3.5 cm LA Diam: 3.60 2.7-3.8/3.0-4.0 cm LAIDs Index: 1.95 1.5-2.3 cm/m2 LV Mass: 318.18 67-162/88-224 g LV Mass Index: 171.99 43-95/49-115 g/m2 LVOT Diam: 2.20 3.0+(-)1.3 cm 2D Systolic Function EF 4C: 66.30 >55% EF 2C: 64.20 >55% EF BiP: 64.20 >55% Mitral Valve MV Pk E: 0.69 MV PK A: 1.04 MV Decel Time: 315.00 E/A: 0.70 E'Lateral: 4.13 E'Medial: 3.92 E/E' Med: 17.60 E/E' Lat: 16.70 PHT: 92.00 MVA PHT: 2.39 Decel [place]: 2.19 Aortic Valve AoV Pk Chuck: 2.13 AoV Mn Chuck: 1.35 AoV VTI: 0.45 AoV Pk Grad: 18.00 Aov Mn Grad: 9.00 MACKENZIE Cont.VTI: 2.08 LVOT LVOT Pk Chuck: 1.03 LVOT Mn Chuck: 0.74 LVOT VTI: 0.25 LVOT Pk Grad: 4.00 LVOT Mn Grad: 2.00 LVOT Diam: 2.20 LVOT Area: 3.80 Diastolic Function MV Pk E: 0.69 MV Pk A: 1.04 E/A: 0.70 E'Medial: 3.92 E/E' Med: 17.60 E' Laterial: 4.13 E/E' Lat: 16.70 Right Ventricle TAPSE (mm): 21.00 TVS' Chuck: 11.00 Tricuspid Valve TR Pk Chuck: 2.19 TR Pk Grad: 19.00 Great Vessels Aorta Ao Root-2D: 2.80 2.0-3.7 cm Pulmonary Valve PV Pk Chuck: 1.41 Peak PV Grad: 8.00 Updated in Other Vendor System with Status of Final Rodolfo Ramos MD electronically signed on 01/26/2021 2:12:44 PM with status of Final
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
--- NOTE | 2021-01-26 10:37 | MHC.CM.PN ---
Met with patient in regards to discharge planning. Patient is a resident of [facility], ambulates with a cane and had no services prior to coming to the hospital. Patient will be going to the OR on 01/27 for an ORIF. Patient has been to [facility] in the past and does not want to return. List of facilities provided from [facility]. Patient will pick 2 facilities and let case management know. PCP verified. Copy of HCP verified to be on file. IMM explained and signed. Patient received Pfizer vaccines on 04/17 and 05/08. Anticipate BLS will be needed when medically stable. Continue to monitor for d/c needs.
--- NOTE | 2021-01-26 13:25 | P.PNIM_ITS ---
Subjective Subjective Date of Service: 01/26/21 <PAM Pop - Last Filed: 01/26/21 13:36> 01/27/21 <Christiane Guzman MD - Last Filed: 01/27/21 12:10> 02/14/21 <Joseph Green MD - Last Filed: 02/14/21 16:27> Interval History: seen and examined this morning follow up for right subcapital femur fracture has hip pain with movement of right leg, comfortable at rest no chest pain, palpitations <PAM Pop - Last Filed: 01/26/21 13:36> Review of Systems Review of Systems: Yes all other systems are reviewed and are negative <PAM Pop - Last Filed: 01/26/21 13:36> No unobtainable due to endotracheal tube <Christiane Guzman MD - Last Fi led: 01/27/21 12:10> Constitutional Constitutional: Denies chills and Denies fever(s) <PAM Pop - Last Filed: 01/26/21 13:36> Cardiovascular Cardiovascular: Denies chest pain <PAM Pop - Last Filed: 01/26/21 13:36> Respiratory Respiratory: Denies cough <PAM Pop - Last Filed: 01/26/21 13:36> Gastrointestinal Gastrointestinal: Denies abdominal pain <PAM Pop - Last Filed: 01/26/21 13:36> Physical Exam Verdana 4l Vital Signs: Verdana 4d Verdana 4d Vital Signs: Verdana 4d Verdana 4Bd Last Vital Signs Verdana 4d Manager Of Development New 4d Manager Of Development New 4d Temp 97.8 F 01/26/21 05:35 Manager Of Development New 4d Pulse 73 01/26/21 05:35 Manager Of Development NewNew 4d Resp 15 01/26/21 05:35 BP 106/53 L 01/26/21 09:21 Pulse Ox 92 01/26/21 05:35 Body Mass Index 30.0 <PAM Pop - Last Filed: 01/26/21 13:36> Const: General: comfortable, no acute distress, alert and awake <PAM Pop - Last Filed: 01/26/21 13:36> Nutritional Appearance: well nourished <PAM Pop - Last Filed: 01/26/21 13:36> Orientation/consciousness: patient oriented x3 <PAM Pop - Last Filed: 01/26/21 13:36> HENMT: Head: Yes normocephalic and Yes atraumatic <PAM Pop - Last Filed: 01/26/21 13:36> Eyes: Sclerae: sclerae normal <PAM Pop - Last Filed: 01/26/21 13:36> Pupils: Equal, round and reactive pupils present <PAM Pop - Last Filed: 01/26/21 13:36> Resp: Effort & Inspection: normal respiratory effort and no respiratory distress <PAM Pop - Last Filed: 01/26/21 13:36> Cardio: Rate: regular rate <PAM Pop - Last Filed: 01/26/21 13:36> Rhythm: regular rhythm <PAM Pop - Last Filed: 01/26/21 13:36> Heart sounds: Murmur heart sound present systolic <PAM Pop - Last Filed: 01/26/21 13:36> GI: Palpation (GI): Soft to palpation and nontender <PAM Pop - Last Filed: 01/26/21 13:36> : Other: hoyos in place <PAM Pop - Last Filed: 01/26/21 13:36> Neuro: General: patient oriented x3 <PAM Pop - Last Filed: 01/26/21 13:36> Cranial nerves: Yes CN's II-XII intact bilaterally, Yes Equal, round and reacti ve pupils present and Yes Bilaterally intact EOM present <PAM Pop - Last Filed: 01/26/21 13:36> Extrem: Other: no leg edema <PAM Pop - Last Filed: 01/26/21 13:36> Objective Data Active Medications Acetaminophen (Acetaminophen 325 Mg Tablet) 650 mg PO Q6H PRN PRN Reason: Pain, Mild (Pain Scale 1-3) Divalproex Sodium (Divalproex Sodium 250 Mg Tablet.) 750 mg PO BID [facility] Last Admin: 01/26/21 09:22 Dose: 750 mg Documented by: SHANTA Fluoxetine HCl (Fluoxetine Hcl 20 Mg Capsule) 40 mg PO DAILY [facility] Last Admin: 01/26/21 09:23 Dose: 40 mg Documented by: SHANTA Folic Acid (Folic Acid 1 Mg Tablet) 1 mg PO DAILY [facility] Last Admin: 01/26/21 09:23 Dose: 1 mg Documented by: SHANTA Cefazolin Sodium/Dextrose (Ancef) 2 gm in 50 mls @ 100 mls/hr IV PREOP ONE Stop: 01/27/21 08:42 Lisinopril (Lisinopril 10 Mg Tablet) 10 mg PO DAILY [facility]; Protocol Last Admin: 01/26/21 09:21 Dose: 10 mg Documented by: SHANTA Morphine Sulfate (Morphine Sulfate 4 Mg/Ml Cartridge) 4 mg IVPUSH Q4H PRN; Protocol PRN Reason: Pain, Severe (Pain Scale 7-10) Last Admin: 01/26/21 09:27 Dose: 4 mg Documented by: PAULIE Ondansetron HCl (Ondansetron Hcl 4 Mg/2 Ml Vial) 4 mg IVPUSH Q8H PRN PRN Reason: Nausea and Vomiting Phenytoin Sodium (Phenytoin Sodium Extended 100 Mg Capsule) 100 mg PO QID [facility] Last Admin: 01/26/21 09:29 Dose: 100 mg Documented by: PAULIE Pravastatin Sodium (Pravastatin Sodium 20 Mg Tablet) 20 mg PO DAILY [facility] Last Admin: 01/26/21 09:23 Dose: 20 mg Documented by: SHANTA Sodium Chloride (0.9 % Sodium Chloride Flush 3 Ml Syringe) [facility] Last Admin: 01/26/21 07:12 Dose: Not Given Documented by: PAULIE Non-Admin Reason: Med Not Available Vitamin D (Cholecalciferol (Vitamin D3) 25 Mcg Tablet) 50 mcg PO DAILY [facility] Last Admin: 01/26/21 09:29 Dose: 50 mcg Documented by: PAULIE <PAM Pop - Last Filed: 01/26/21 13:36> Labs CBC & Chem 7: : 01/29/21 05:18 01/29/21 05:18 <PAM Pop - Last Filed: 01/26/21 13:36> Labs: Laboratory Results - last 24 hr 01/26/21 01/26/21 01/26/21 04:00 04:00 04:00 MCV 99.8 H MCH 34.0 H MCHC 34.1 RDW 13.2 Plt Count 182 MPV 9.9 Immature Gran % (Auto) 0.4 Neut % (Auto) 84.2 H Lymph % (Auto) 9.7 L [place] % (Auto) 5.4 Eos % (Auto) 0.2 Baso % (Auto) 0.1 Lymph # (Auto) 0.9 L [place] # (Auto) 0.5 Eos # (Auto) 0.0 Baso # (Auto) 0.0 Abs Immat Gran (auto) 0.04 H Absolute Neuts (auto) 7.8 Absolute Nucleated RBC 0.000 Nucleated RBC % (auto) 0.0 PT INR APTT Anion Gap 13 Estim Creat Clear Calc 60.0 Estimated GFR 60 Random Glucose 148 H Calcium 8.5 Total Bilirubin 0.4 AST 23 ALT 20 Alkaline Phosphatase 101 Troponin I High Sens Total Protein 6.8 Albumin 3.9 Urine Color Urine Appearance Urine pH Ur Specific [place] Urine Protein Urine Glucose (UA) Urine Ketones Urine Blood Urine Nitrite Ur Leukocyte Esterase Urine RBC Urine WBC Ur Squamous Epith Cells Urine Bacteria COVID-19 ([facility]OR) Negative COVID-19 Clin Com See Note Blood Type Antibody Screen 01/26/21 01/26/21 01/26/21 04:00 04:00 04:14 MCV MCH MCHC RDW Plt Count MPV Immature Gran % (Auto) Neut % (Auto) Lymph % (Auto) [place] % (Auto) Eos % (Auto) Baso % (Auto) Lymph # (Auto) [place] # (Auto) Eos # (Auto) Baso # (Auto) Abs Immat Gran (auto) Absolute Neuts (auto) Absolute Nucleated RBC Nucleated RBC % (auto) PT 12.9 INR 1.1 APTT 37.0 Anion Gap Estim Creat Clear Calc Estimated GFR Random Glucose Calcium Total Bilirubin AST ALT Alkaline Phosphatase Troponin I High Sens 13.5 Total Protein Albumin Urine Color YELLOW Urine Appearance CLEAR Urine pH 7.5 Ur Specific [place] 1.015 Urine Protein NEG Urine Glucose (UA) NEG Urine Ketones NEG Urine Blood 1+ H Urine Nitrite NEG Ur Leukocyte Esterase NEG Urine RBC 5-9 H Urine WBC 0-2 Ur Squamous Epith Cells NONE Urine Bacteria TRACE COVID-19 ([facility]) COVID-19 Clin Com Blood Type Antibody Screen 01/26/21 01/26/21 01/26/21 04:24 07:03 07:03 MCV 98.9 H MCH 33.4 H MCHC 33.8 RDW 13.0 Plt Count 146 L MPV 10.4 Immature Gran % (Auto) 0.3 Neut % (Auto) 79.3 H Lymph % (Auto) 11.6 L [place] % (Auto) 8.0 Eos % (Auto) 0.5 Baso % (Auto) 0.3 Lymph # (Auto) 0.8 L [place] # (Auto) 0.5 Eos # (Auto) 0.0 Baso # (Auto) 0.0 Abs Immat Gran (auto) 0.02 Absolute Neuts (auto) 5.3 Absolute Nucleated RBC 0.000 Nucleated RBC % (auto) 0.0 PT INR APTT Anion Gap 12 Estim Creat Clear Calc 73.2 Estimated GFR > 60 Random Glucose 130 H Calcium 7.9 L D Total Bilirubin AST ALT Alkaline Phosphatase Troponin I High Sens Total Protein Albumin Urine Color Urine Appearance Urine pH Ur Specific [place] Urine Protein Urine Glucose (UA) Urine Ketones Urine Blood Urine Nitrite Ur Leukocyte Esterase Urine RBC Urine WBC Ur Squamous Epith Cells Urine Bacteria COVID-19 ([facility]) COVID-19 Clin Com Blood Type A Positive Antibody Screen NEGATIVE <PAM oPp - Last Filed: 01/26/21 13:36> Assessment and Plan (1) Closed subcapital fracture of femur: Status: Acute <PAM Pop - Last Filed: 01/26/21 13:36> (2) Tobacco dependence: Assessment and Plan: 65-year-old female with past medical history of coronary artery disease status post [place], 10 years ago, hypertension, and seizure disorder presents to the hospital after a fall found to have proximal femur fracture Right subcapital femur fracture secondary to mechanical fall seen by ortho, plan for surgery in AM NPO at midnight Pain control h/o CAD has not seen helper animal laboratory in years. no chest pain seen by cardiology for preop eval -continue statin -not on asa, or BB per med rec -echo pending hypertension BP controlled - continue Lisinopril history of seizure disorder - continue Depakote and phenytoin hyperlipidemia - continues statin Mood -continue prozac tobacco dependence smoking cessation advised -NRT DVT prophylaxis: SCDs Attending: Dr. Green <PAM Pop - Last Filed: 01/26/21 13:36> 65-year-old female with past medical history of coronary artery disease status post [place], 10 years ago, hypertension, and seizure disorder presents to the hospital after a fall found to have proximal femur fracture Right subcapital femur fracture secondary to mechanical fall seen by ortho, plan for surgery in AM NPO at midnight Pain control h/o CAD has not seen helper animal laboratory in years. no chest pain seen by cardiology for preop eval -continue statin -not on asa, or BB per med rec -echo pending hypertension BP controlled - continue Lisinopril history of seizure disorder - continue Depakote and phenytoin hyperlipidemia - continues statin Mood -continue prozac tobacco dependence smoking cessation advised -NRT DVT prophylaxis: SCDs Attending: Dr. Green I saw patient and discussed finding with midlevel provider and i agree with the above <Joseph Green MD - Last Filed: 02/14/21 16:27> Quality Stroke Does the patient have a stroke diagnosis?: No <PAM Pop - Last Filed: 01/26/21 13:36> VTE Prior VTE?: No <PAM Pop - Last Filed: 01/26/21 13:36> VTE Risk Level:: Medical - moderate - high <PAM Pop - Last Filed: 01/26/21 13:36> VTE Device Contraindication: N/A - Device Ordered <PAM Pop - Last Filed: 01/26/21 13:36> VTE Drug Contraindication: Treatment Not Indicated <PAM Pop - Last Filed: 01/26/21 13:36>
[2021-01-26] MEDS: Nicotine 14 MG PATCH.TD24 TRANSDERMA (14:26)
[2021-01-26 19:10] LABS: Glucose, Whole Blood 119 mg/dL (60-115)
[2021-01-26] MEDS: 0.9 % Sodium Chloride Flush 3 ML SYRINGE IVFLUSH (20:18)
[2021-01-27] VITALS (17 sets, daily range): BP systolic 125–208; BP diastolic 57–84; PULSE 67–82; RESP 14–20; TEMP 36.2–37.2; O2SAT 91–100
[2021-01-27] MEDS: Morphine Sulfate 4 MG/ML CARTRIDGE IVPUSH ×2 (05:37→20:30)
[2021-01-27] MEDS: 0.9 % Sodium Chloride Flush 3 ML SYRINGE IVFLUSH ×2 (07:29→16:13)
[2021-01-27 08:14] LABS: Mean Corpuscular Volume 99.2 fL (80.0-98.0); PLT CLUMP 1
[2021-01-27 08:16] LABS: Hematocrit 37.1 % (37.0-47.0); Hemoglobin 12.5 g/dl (12.0-16.0); Mean Corpuscular HGB Conc 33.7 g/dl (31.0-35.0); Mean Corpuscular Hemoglobin 33.4 pg (27.0-33.0); Mean Platelet Volume 10.8 fL (9.4-12.3); Platelet Count 141 X10*3/uL (160-400); Red Blood Count 3.74 X10*6/uL (4.20-5.50); Red Cell Distribution Width 13.2 % (11.0-16.0); White Blood Count 5.8 X10*3/uL (4.8-10.8)
[2021-01-27 08:31] LABS: Anion Gap 10 (12-20); Blood Urea Nitrogen 16 mg/dL (9-16); Calcium 7.9 mg/dL (8.4-10.2); Carbon Dioxide 26 mmol/L (22-29); Chloride 107 mmol/L (96-108); Creatinine Clr Calc Pharmacy 78.3; Estimated Glomerular Filt Rate > 60; Glucose Random 89 mg/dL (60-115); Potassium 4.2 mmol/L (3.3-5.1); Sodium 139 mmol/L (135-145)
--- NOTE | 2021-01-27 08:41 | HO.PM.IMPN ---
Subjective Subjective Date of Service: 01/27/21 Interval History: seen and examined this morning follow up for right femur fracture plan for surgery today pain controlled if resting, increased pain with movement Review of Systems Review of Systems: Yes all other systems are reviewed and are negative Constitutional Constitutional: Denies chills and Denies fever(s) Cardiovascular Cardiovascular: Denies chest pain, Denies syncope and Denies palpitations Respiratory Respiratory: Denies cough Gastrointestinal Gastrointestinal: Denies abdominal pain Neurologic Neurologic: Denies syncope Endocrine Endocrine: Denies palpitations Physical Exam Vital Signs: Vital Signs: Last Vital Signs Temp 99 F 01/27/21 07:53 Pulse 67 01/27/21 07:53 Resp 16 01/27/21 07:53 BP 184/72 H 01/27/21 07:53 Pulse Ox 93 01/27/21 07:53 Body Mass Index 30.0 Const: General: comfortable, no acute distress, alert and awake Nutritional Appearance: well nourished Orientation/consciousness: patient oriented x3 HENMT: Head: Yes normocephalic and Yes atraumatic Eyes: Sclerae: sclerae normal Pupils: Equal, round and reactive pupils present Resp: Effort & Inspection: normal respiratory effort and no respiratory distress Cardio: Rate: regular rate Rhythm: regular rhythm Heart sounds: Murmur heart sound present systolic GI: Palpation (GI): Soft to palpation and nontender : Other: hoyos in place Neuro: General: patient oriented x3 Cranial nerves: Yes CN's II-XII intact bilaterally, Yes Equal, round and reactive pupils present and Yes Bilaterally intact EOM present Extrem: Other: no leg edema Objective Data Active Medications Acetaminophen (Acetaminophen 325 Mg Tablet) 650 mg PO Q6H PRN PRN Reason: Pain, Mild (Pain Scale 1-3) Divalproex Sodium (Divalproex Sodium 250 Mg Tablet.) 750 mg PO BID [facility] Last Admin: 01/26/21 20:18 Dose: 750 mg Documented by: ALEXANDR Fluoxetine HCl (Fluoxetine Hcl 20 Mg Capsule) 40 mg PO DAILY [facility] Last Admin: 01/26/21 09:23 Dose: 40 mg Documented by: SHANTA Folic Acid (Folic Acid 1 Mg Tablet) 1 mg PO DAILY [facility] Last Admin: 01/26/21 09:23 Dose: 1 mg Documented by: SHANTA Cefazolin Sodium/Dextrose (Ancef) 2 gm in 50 mls @ 100 mls/hr IV PREOP ONE Stop: 01/27/21 08:42 Lisinopril (Lisinopril 10 Mg Tablet) 10 mg PO DAILY [facility]; Protocol Last Admin: 01/26/21 09:21 Dose: 10 mg Documented by: SHANTA Morphine Sulfate (Morphine Sulfate 4 Mg/Ml Cartridge) 4 mg IVPUSH Q4H PRN; Protocol PRN Reason: Pain, Severe (Pain Scale 7-10) Last Admin: 01/27/21 05:37 Dose: 4 mg Documented by: ALEXANDR Nicotine (Nicotine 14 Mg Patch.Td24) 14 mg TRANSDERMA DAILY [facility] Last Admin: 01/26/21 14:26 Dose: 14 mg Documented by: SHANTA Ondansetron HCl (Ondansetron Hcl 4 Mg/2 Ml Vial) 4 mg IVPUSH Q8H PRN PRN Reason: Nausea and Vomiting Phenytoin Sodium (Phenytoin Sodium Extended 100 Mg Capsule) 100 mg PO QID [facility] Last Admin: 01/26/21 20:18 Dose: 100 mg Documented by: ALEXANDR Pravastatin Sodium (Pravastatin Sodium 20 Mg Tablet) 20 mg PO DAILY [facility] Last Admin: 01/26/21 09:23 Dose: 20 mg Documented by: SHANTA Sodium Chloride (0.9 % Sodium Chloride Flush 3 Ml Syringe) 3 ml IVFLUSH QSHIFT [facility] Last Admin: 01/27/21 07:29 Dose: 3 ml Documented by: SERGIO Vitamin D (Cholecalciferol (Vitamin D3) 25 Mcg Tablet) 50 mcg PO DAILY [facility] Last Admin: 01/26/21 09:29 Dose: 50 mcg Documented by: PAULIE Labs CBC & Chem 7: 01/26/21 07:03 01/27/21 07:48 Labs: Laboratory Results - last 24 hr 01/26/21 01/27/21 19:07 07:48 Anion Gap 10 L Estim Creat Clear Calc 78.3 Estimated GFR > 60 POC Glucose 119 H Random Glucose 89 Calcium 7.9 L Assessment and Plan (1) Tobacco dependence: Status: Acute (2) History of coronary artery disease: Status: Chronic (3) Closed subcapital fracture of femur: Status: Acute Assessment and Plan: 65-year-old female with past medical history of coronary artery disease status post [place], 10 years ago, hypertension, and seizure disorder presents to the hospital after a fall found to have proximal femur fracture Right subcapital femur fracture secondary to mechanical fall seen by ortho, plan for surgery this morning (01/27) Pain control h/o CAD has not seen front desk host in years. no chest pain seen by cardiology for preop eval -continue statin -not on asa, or BB per med rec -echo LVEF 64% with no WMA; mild hypertension - continue Lisinopril -monitor BP closely history of seizure disorder - continue Depakote and phenytoin hyperlipidemia - continues statin Mood -continue prozac tobacco dependence smoking cessation advised -NRT DVT prophylaxis: SCDs Attending: Dr. Martines Quality Stroke Does the patient have a stroke diagnosis?: No VTE Prior VTE?: No VTE Risk Level:: Medical - moderate - high VTE Device Contraindication: N/A - Device Ordered VTE Drug Contraindication: Treatment Not Indicated
[2021-01-27] MEDS: Divalproex Sodium 250 MG TABLET.DR 750 MG PO ×2 (09:42→20:30)
[2021-01-27] MEDS: Phenytoin Sodium Extended 100 MG CAPSULE PO ×3 (09:42→20:30)
--- NOTE | 2021-01-27 10:23 | MHC.CM.PN ---
THIS NUCLEAR TECHNICIAN MET WITH PATIENT TO OBTAIN SNF PREFERENCES. PATIENT CHOOSES [facility] AND [facility] REFERRALS NOW PLACED. CM TO CONTINUE TO FOLLOW.
--- NOTE | 2021-01-27 10:42 | PM.PNCARD ---
Subjective Subjective Date of Service: 01/27/21 Interval history: No cardiac complaints. Review of Systems Review of Systems Yes all other systems are reviewed and are negative Cardiovascular: Reports as per HPI, Reports no additional cardiovascular complaints, Denies acrocyanosis, Denies cool extremities, Denies painful fingertips, Denies chest pain, Denies chest pain at rest, Denies diaphoresis, Denies syncope, Denies irregular heart rhythm, Denies claudication, Denies leg edema, Denies lightheadedness, Denies palpitations and Denies dyspnea Respiratory: Denies dyspnea Denies syncope Endocrine: Denies palpitations Physical Exam Vital Signs: Last Vital Signs Temp 99 F 01/27/21 07:53 Pulse 67 01/27/21 07:53 Resp 16 01/27/21 07:53 BP 184/72 H 01/27/21 07:53 Pulse Ox 93 01/27/21 07:53 Body Mass Index 30.0 Const General: cooperative and no acute distress [facility] Other: Unremarkable Neck Neck: Yes normal visual inspection Chest Chest palpation & inspection: normal inspection of the chest Resp Auscultation: clear to auscultation bilaterally, no crackles and no wheezes Cardio Jugular venous distension: no JVD Palpation: normal PMI Heart sounds: S1 normal heart sound present, S2 normal heart sound present, no gallops, Murmur heart sound present (2/6 NEHA aortic area) systolic and no rubs GI Palpation (GI): Soft to palpation Back/Spine/Pelvis Other: unremarkable Skin General skin exam: no rashes or lesions noted Neuro Cranial nerves: Yes Other cranial nerve findings present Extrem General: Yes no clubbing, cyanosis or edema Psych Mental Status: other Results Labs and Meds Result diagrams: 01/27/21 07:48 01/27/21 07:48 Lab results: Laboratory Results - last 24 hr 01/26/21 01/27/21 01/27/21 19:07 07:48 07:48 WBC 5.8 RBC 3.74 L Hgb 12.5 Hct 37.1 MCV 99.2 H MCH 33.4 H MCHC 33.7 RDW 13.2 Plt Count 141 L MPV 10.8 Absolute Nucleated RBC 0.000 Nucleated RBC % (auto) 0.0 Sodium 139 Potassium 4.2 Chloride 107 Carbon Dioxide 26 Anion Gap 10 L BUN 16 Creatinine 0.72 Estim Creat Clear Calc 78.3 Estimated GFR > 60 POC Glucose 119 H Random Glucose 89 Calcium 7.9 L Progress Note: A&P Assessment and plan (1) Preoperative cardiovascular examination: Status: Acute (2) Non-rheumatic aortic stenosis: Status: Inactive (3) Atherosclerotic cardiovascular disease: Status: Acute (4) Fall: Status: Acute Assessment and Plan: Echocardiogram with preserved LVEF, 64%; basal inferior akinesis; mild aortic stenosis; wall motion abnormality probably from known coronary disease and was also seen in the prior study from few years ago. Overall, intermediate cardiac risk for hip surgery may proceed as planned. Blood pressure is on the higher side and she needs to continue home BP meds. May need higher doses. Perioperative cardiac risks discussed with patient. Fall Risk Details Current Medications: Current Medications Acetaminophen (Acetaminophen 325 Mg Tablet) 650 mg PO Q6H PRN PRN Reason: Pain, Mild (Pain Scale 1-3) Divalproex Sodium (Divalproex Sodium 250 Mg Tablet.) 750 mg PO BID [facility] Last Admin: 01/27/21 09:42 Dose: 750 mg Documented by: Fluoxetine HCl (Fluoxetine Hcl 20 Mg Capsule) 40 mg PO DAILY [facility] Last Admin: 01/27/21 09:45 Dose: Not Given Documented by: Folic Acid (Folic Acid 1 Mg Tablet) 1 mg PO DAILY [facility] Last Admin: 01/27/21 09:13 Dose: Not Given Documented by: Lisinopril (Lisinopril 10 Mg Tablet) 10 mg PO DAILY [facility]; Protocol Last Admin: 01/27/21 09:45 Dose: Not Given Documented by: Morphine Sulfate (Morphine Sulfate 4 Mg/Ml Cartridge) 4 mg IVPUSH Q4H PRN; Protocol PRN Reason: Pain, Severe (Pain Scale 7-10) Last Admin: 01/27/21 05:37 Dose: 4 mg Documented by: Nicotine (Nicotine 14 Mg Patch.Td24) 14 mg TRANSDERMA DAILY [facility] Last Admin: 01/27/21 09:45 Dose: Not Given Documented by: Ondansetron HCl (Ondansetron Hcl 4 Mg/2 Ml Vial) 4 mg IVPUSH Q8H PRN PRN Reason: Nausea and Vomiting Phenytoin Sodium (Phenytoin Sodium Extended 100 Mg Capsule) 100 mg PO QID [facility] Last Admin: 01/27/21 09:42 Dose: 100 mg Documented by: Pravastatin Sodium (Pravastatin Sodium 20 Mg Tablet) 20 mg PO DAILY [facility] Last Admin: 01/27/21 09:46 Dose: Not Given Documented by: Sodium Chloride (0.9 % Sodium Chloride Flush 3 Ml Syringe) 3 ml IVFLUSH QSHIFT [facility] Last Admin: 01/27/21 07:29 Dose: 3 ml Documented by: Vitamin D (Cholecalciferol (Vitamin D3) 25 Mcg Tablet) 50 mcg PO DAILY [facility] Last Admin: 01/27/21 09:13 Dose: Not Given Documented by: Time Spent With Patient Time: Total time spent is greater than 50% in coordination of care (as documented) at patient's floor/unit and/or counseling patient: Time with patient: less than 15 minutes Progress Note: Quality Stroke Does the patient have a stroke diagnosis?: No Procedures Date of Service Date of Service: 01/27/21
--- NOTE | 2021-01-27 11:56 | HO.ANESPROP2 ---
[facility] Active Problems Active Problems: All Active Problems (Updated 01/26/21 @ 13:29 by PAM Pop) Tobacco dependence (Acute) Atherosclerotic cardiovascular disease (Acute) History of coronary artery disease (Chronic) Preoperative cardiovascular examination (Acute) Fall (Acute) Closed subcapital fracture of femur (Acute) Past Medical History Medical History History of coronary artery disease Hypertension Myocardial infarct Non-rheumatic aortic stenosis Seizure disorder Functional capacity: independent ambulation Patient : No Family History Family History (Updated 01/26/21 @ 10:35 by Rodolfo Ramos MD) Mother No problems noted. Father No problems noted. Family history of problems with anesthesia: No Surgical History Surgical History No pertinent past surgical history History of Problems with Anesthesia: No Social History Social History Household Members: Other Housing: Other Do you presently have visiting nurse or other home services: No Alcohol intake: never Patient Tobacco Use Status: Current everyday Tobacco user Tobacco use type: Cigarette Second Hand Smoke Exposure: No service: No Current occupational status: disabled Meds Allergies Allergy/AdvReac Type Severity Reaction Status Date / Time azithromycin [AZITHROMYCIN] Allergy Unknown HIVES Verified 01/27/21 11:56 Active Medications: Current Medications Acetaminophen (Acetaminophen 325 Mg Tablet) 650 mg PO Q6H PRN PRN Reason: Pain, Mild (Pain Scale 1-3) Divalproex Sodium (Divalproex Sodium 250 Mg Tablet.) 750 mg PO BID COUNTS INCLUDE 234 BEDS AT THE [facility] Last Admin: 01/27/21 09:42 Dose: 750 mg Documented by: Fluoxetine HCl (Fluoxetine Hcl 20 Mg Capsule) 40 mg PO DAILY COUNTS INCLUDE 234 BEDS AT THE [facility] Last Admin: 01/27/21 09:45 Dose: Not Given Documented by: Folic Acid (Folic Acid 1 Mg Tablet) 1 mg PO DAILY COUNTS INCLUDE 234 BEDS AT THE [facility] Last Admin: 01/27/21 09:13 Dose: Not Given Documented by: Lisinopril (Lisinopril 10 Mg Tablet) 10 mg PO DAILY COUNTS INCLUDE 234 BEDS AT THE [facility]; Protocol Last Admin: 01/27/21 09:45 Dose: Not Given Documented by: Morphine Sulfate (Morphine Sulfate 4 Mg/Ml Cartridge) 4 mg IVPUSH Q4H PRN; Protocol PRN Reason: Pain, Severe (Pain Scale 7-10) Last Admin: 01/27/21 05:37 Dose: 4 mg Documented by: Nicotine (Nicotine 14 Mg Patch.Td24) 14 mg TRANSDERMA DAILY COUNTS INCLUDE 234 BEDS AT THE [facility] Last Admin: 01/27/21 09:45 Dose: Not Given Documented by: Ondansetron HCl (Ondansetron Hcl 4 Mg/2 Ml Vial) 4 mg IVPUSH Q8H PRN PRN Reason: Nausea and Vomiting Phenytoin Sodium (Phenytoin Sodium Extended 100 Mg Capsule) 100 mg PO QID COUNTS INCLUDE 234 BEDS AT THE [facility] Last Admin: 01/27/21 09:42 Dose: 100 mg Documented by: Pravastatin Sodium (Pravastatin Sodium 20 Mg Tablet) 20 mg PO DAILY COUNTS INCLUDE 234 BEDS AT THE [facility] Last Admin: 01/27/21 09:46 Dose: Not Given Documented by: Sodium Chloride (0.9 % Sodium Chloride Flush 3 Ml Syringe) 3 ml IVFLUSH QSHIFT COUNTS INCLUDE 234 BEDS AT THE [facility] Last Admin: 01/27/21 07:29 Dose: 3 ml Documented by: Vitamin D (Cholecalciferol (Vitamin D3) 25 Mcg Tablet) 50 mcg PO DAILY COUNTS INCLUDE 234 BEDS AT THE [facility] Last Admin: 01/27/21 09:13 Dose: Not Given Documented by: Home Medications Medication Instructions Recorded Confirmed Last Taken Type cholecalciferol (vitamin D3) 50 1 tab PO DAILY 01/26/21 01/26/21 01/25/21 History mcg (2,000 unit) tablet (Vitamin D3) divalproex 250 mg tablet,delayed 3 tab PO BID 01/26/21 01/26/21 01/25/21 History release fluoxetine 40 mg capsule 1 cap PO DAILY 01/26/21 01/26/21 01/25/21 History folic acid 1 mg tablet 1 tab PO DAILY 01/26/21 01/26/21 01/25/21 History lisinopril 10 mg tablet 1 tab PO DAILY 01/26/21 01/26/21 01/25/21 History phenytoin sodium extended 100 mg 1 tab PO QID 01/26/21 01/26/21 01/25/21 History capsule pravastatin 20 mg tablet 1 tab PO DAILY 01/26/21 01/26/21 01/25/21 History Exam Exam Date and Time: January 27, 2021 1156 Height,Weight and Vital Signs: Height 5 ft 4 in Weight 79.4 kg Last Vital Signs Temp 99 F 11/09/21 07:53 Pulse 67 01/27/21 07:53 Resp 16 01/27/21 07:53 BP 184/72 H 01/27/21 07:53 Pulse Ox 93 01/27/21 07:53 Pertinent Lab Results Pertinent Lab Results: Laboratory Tests 01/26/21 01/26/21 01/26/21 04:00 04:00 04:00 WBC 9.3 RBC 4.18 L Hgb 14.2 Hct 41.7 MCV 99.8 H MCH 34.0 H MCHC 34.1 RDW 13.2 Plt Count 182 MPV 9.9 Immature Gran % (Auto) 0.4 Neut % (Auto) 84.2 H Lymph % (Auto) 9.7 L [place] % (Auto) 5.4 Eos % (Auto) 0.2 Baso % (Auto) 0.1 Lymph # (Auto) 0.9 L [place] # (Auto) 0.5 Eos # (Auto) 0.0 Baso # (Auto) 0.0 Abs Immat Gran (auto) 0.04 H Absolute Neuts (auto) 7.8 Absolute Nucleated RBC 0.000 Nucleated RBC % (auto) 0.0 PT INR APTT Sodium 139 Potassium 4.4 Chloride 103 Carbon Dioxide 27 Anion Gap 13 BUN 20 H Creatinine 0.94 Estim Creat Clear Calc 60.0 Estimated GFR 60 POC Glucose Random Glucose 148 H Calcium 8.5 Total Bilirubin 0.4 AST 23 ALT 20 Alkaline Phosphatase 101 Troponin I High Sens Total Protein 6.8 Albumin 3.9 Urine Color Urine Appearance Urine pH Ur Specific [place] Urine Protein Urine Glucose (UA) Urine Ketones Urine Blood Urine Nitrite Ur Leukocyte Esterase Urine RBC Urine WBC Ur Squamous Epith Cells Urine Bacteria COVID-19 ([facility]JOR) Negative COVID-19 Clin Com See Note Blood Type Antibody Screen 01/26/21 01/26/21 01/26/21 04:00 04:00 04:14 WBC RBC Hgb Hct MCV MCH MCHC RDW Plt Count MPV Immature Gran % (Auto) Neut % (Auto) Lymph % (Auto) [place] % (Auto) Eos % (Auto) Baso % (Auto) Lymph # (Auto) [place] # (Auto) Eos # (Auto) Baso # (Auto) Abs Immat Gran (auto) Absolute Neuts (auto) Absolute Nucleated RBC Nucleated RBC % (auto) PT 12.9 INR 1.1 APTT 37.0 Sodium Potassium Chloride Carbon Dioxide Anion Gap BUN Creatinine Estim Creat Clear Calc Estimated GFR POC Glucose Random Glucose Calcium Total Bilirubin AST ALT Alkaline Phosphatase Troponin I High Sens 13.5 Total Protein Albumin Urine Color YELLOW Urine Appearance CLEAR Urine pH 7.5 Ur Specific [place] 1.015 Urine Protein NEG Urine Glucose (UA) NEG Urine Ketones NEG Urine Blood 1+ H Urine Nitrite NEG Ur Leukocyte Esterase NEG Urine RBC 5-9 H Urine WBC 0-2 Ur Squamous Epith Cells NONE Urine Bacteria TRACE COVID-19 ([facility]JOR) COVID-19 Clin Com Blood Type Antibody Screen 01/26/21 01/26/21 01/26/21 04:24 07:03 07:03 WBC 6.6 RBC 3.77 L Hgb 12.6 Hct 37.3 MCV 98.9 H MCH 33.4 H MCHC 33.8 RDW 13.0 Plt Count 146 L MPV 10.4 Immature Gran % (Auto) 0.3 Neut % (Auto) 79.3 H Lymph % (Auto) 11.6 L [place] % (Auto) 8.0 Eos % (Auto) 0.5 Baso % (Auto) 0.3 Lymph # (Auto) 0.8 L [place] # (Auto) 0.5 Eos # (Auto) 0.0 Baso # (Auto) 0.0 Abs Immat Gran (auto) 0.02 Absolute Neuts (auto) 5.3 Absolute Nucleated RBC 0.000 Nucleated RBC % (auto) 0.0 PT INR APTT Sodium 138 Potassium 4.3 Chloride 106 Carbon Dioxide 24 Anion Gap 12 BUN 19 H Creatinine 0.77 Estim Creat Clear Calc 73.2 Estimated GFR > 60 POC Glucose Random Glucose 130 H Calcium 7.9 L D Total Bilirubin AST ALT Alkaline Phosphatase Troponin I High Sens Total Protein Albumin Urine Color Urine Appearance Urine pH Ur Specific [place] Urine Protein Urine Glucose (UA) Urine Ketones Urine Blood Urine Nitrite Ur Leukocyte Esterase Urine RBC Urine WBC Ur Squamous Epith Cells Urine Bacteria COVID-19 ([facility]JOR) COVID-19 Clin Com Blood Type A Positive Antibody Screen NEGATIVE 01/26/21 01/27/21 01/27/21 19:07 07:48 07:48 WBC 5.8 RBC 3.74 L Hgb 12.5 Hct 37.1 MCV 99.2 H MCH 33.4 H MCHC 33.7 RDW 13.2 Plt Count 141 L MPV 10.8 Immature Gran % (Auto) Neut % (Auto) Lymph % (Auto) [place] % (Auto) Eos % (Auto) Baso % (Auto) Lymph # (Auto) [place] # (Auto) Eos # (Auto) Baso # (Auto) Abs Immat Gran (auto) Absolute Neuts (auto) Absolute Nucleated RBC 0.000 Nucleated RBC % (auto) 0.0 PT INR APTT Sodium 139 Potassium 4.2 Chloride 107 Carbon Dioxide 26 Anion Gap 10 L BUN 16 Creatinine 0.72 Estim Creat Clear Calc 78.3 Estimated GFR > 60 POC Glucose 119 H Random Glucose 89 Calcium 7.9 L Total Bilirubin AST ALT Alkaline Phosphatase Troponin I High Sens Total Protein Albumin Urine Color Urine Appearance Urine pH Ur Specific [place] Urine Protein Urine Glucose (UA) Urine Ketones Urine Blood Urine Nitrite Ur Leukocyte Esterase Urine RBC Urine WBC Ur Squamous Epith Cells Urine Bacteria COVID-19 ([facility]JOR) COVID-19 Clin Com Blood Type Antibody Screen Airway Mallampati Class: II TM Dist: >3cm Neck ROM: Full Heart: RRR Lungs: CTA Assessment and Plan Assessment Anesthesia Assessment: Anesthesia Plan Discussed Final Anesthetic Review Family History of Problems with Anesthesia: No History of Problems with Anesthesia: No ASA Class: III Final Preanesthetic Review: No Changes in Pt Med Stat Patient Risk: Intermediate Procedure Risk: Intermediate Anesthetic Plan Anesthetic Plan: GA Disposition: Standard PACU
--- NOTE | 2021-01-27 12:19 | MHC.SHP ---
Pre-Procedural Eval Section A Date of Service: 01/27/21 The patient is an INPATIENT: Yes Changes since office visit: Yes Patient answered all questions; No Cold of Flu in the past 2 weeks, No New Medical Problems and No Changes in Medication The History & Physical has been completed within 30 days and I have reviewed it.: Yes Section B Chief Complaint: Hip Fracture Allergies: Allergies Allergy/AdvReac Type Severity Reaction Status Date / Time azithromycin [AZITHROMYCIN] Allergy Unknown HIVES Verified 01/27/21 11:56 Plan I have reviewed the history and physical and performed a pertinent physical examination on my patient. No changes have occurred unless specified.
[2021-01-27 12:22] LABS: Glucose, Whole Blood 91 mg/dL (60-115)
--- NOTE | 2021-01-27 13:31 | P.BOP_ITS ---
Brief Operative Note Date of Service: 01/27/21 Pre-op diagnosis: valgus impacted left femoral neck fracture Post-op diagnosis: same Procedure: left hip CRPP Implants: Crescent 8.0 partially threaded cannulated screws x 3 ( 85,80,80) Surgeon: Tonny Adorno MD Anesthesia: GETA and local Was an Gettering Fil[employer] Machine Operator used for this Procedure?: No Estimated blood loss (mL): 25 IV fluids (mL): 800 Pathology: none sent Condition: stable Disposition: PACU
--- NOTE | 2021-01-27 13:54 | P.CDIC_ITS ---
CDI Concurrent Query Documentation Clarification: PHYSICIAN'S DOCUMENTATION REQUEST Date of Query: 01/27/21 1354 Patient Name: Cielo Thomas Admit Date: 01/26/21 Dear Doctor, A review of the medical record indicates additional documentation may be needed. Please review below and update the documentation accordingly. Risk Factors/Clinical Indicators/Treatments Per H&P: Acute closed right proximal femur fracture Per Brief operative note 01/27/21: Brief Operative Note Date of Service: 01/27/21 Pre-op diagnosis: valgus impacted left femoral neck fracture Post-op diagnosis: same Procedure: left hip CRPP Based on the above, could you clarify in the Progress Notes the appropriate diagnosis, if significant, that supports the above abnormalities and additional evaluation, monitoring, and/or treatment rendered: * Based on the above, please provide the laterality of the diagnosis and procedure * Other (please specify) * Unable to determine Use of terms such as suspected, likely, concern for, or probable (associated with a specific diagnosis that is being evaluated, monitored, or treated as if it exists) are acceptable and can be coded in the inpatient setting, when documented at the time of discharge. Thank you, Katherine Piedra RN Extension: [phone] Please use your independent medical judgment in providing your response. THIS QUERY IS PART OF THE PERMANENT MEDICAL RECORD Provider Response: Other (Right femoral neck fracture) Other Diagnosis: Right femoral neck fracture
[2021-01-27] MEDS: Labetalol HCL 100 MG/20 ML VIAL 10 MG IVPUSH (14:59)
[2021-01-27] MEDS: ceFAZolin Sodium/Dextrose,Iso 2 GM/50 ML PIGGYBACK IV (16:11)
[2021-01-28] VITALS (7 sets, daily range): BP systolic 121–177; BP diastolic 61–89; PULSE 72–78; RESP 16–18; TEMP 36.7–37.1; O2SAT 92–97
[2021-01-28] MEDS: 0.9 % Sodium Chloride Flush 3 ML SYRINGE IVFLUSH ×4 (00:22→21:21)
[2021-01-28] MEDS: Morphine Sulfate 4 MG/ML CARTRIDGE IVPUSH ×3 (03:41→22:48)
[2021-01-28 05:59] LABS: Hematocrit 35.5 % (37.0-47.0); Hemoglobin 11.9 g/dl (12.0-16.0); Mean Corpuscular HGB Conc 33.5 g/dl (31.0-35.0); Mean Corpuscular Hemoglobin 33.2 pg (27.0-33.0); Mean Corpuscular Volume 99.2 fL (80.0-98.0); Mean Platelet Volume 10.5 fL (9.4-12.3); Platelet Count 130 X10*3/uL (160-400); Red Blood Count 3.58 X10*6/uL (4.20-5.50); White Blood Count 5.9 X10*3/uL (4.8-10.8)
[2021-01-28 06:18] LABS: Anion Gap 11 (12-20); Blood Urea Nitrogen 18 mg/dL (9-16); Calcium 7.8 mg/dL (8.4-10.2); Carbon Dioxide 28 mmol/L (22-29); Chloride 104 mmol/L (96-108); Creatinine Clr Calc Pharmacy 77.3; Estimated Glomerular Filt Rate > 60; Glucose Random 92 mg/dL (60-115); Potassium 4.2 mmol/L (3.3-5.1); Sodium 139 mmol/L (135-145)
[2021-01-28] MEDS: Divalproex Sodium 250 MG TABLET.DR 750 MG PO ×2 (08:59→21:19)
[2021-01-28] MEDS: Cholecalciferol (Vitamin D3) 25 MCG TABLET 50 MCG PO (08:59)
[2021-01-28] MEDS: FLUoxetine HCl 20 MG CAPSULE 40 MG PO (09:00)
[2021-01-28] MEDS: Phenytoin Sodium Extended 100 MG CAPSULE PO ×4 (09:00→21:19)
[2021-01-28] MEDS: lisinopriL 10 MG TABLET PO (09:01)
[2021-01-28] MEDS: Folic Acid 1 MG TABLET PO (09:01)
[2021-01-28] MEDS: Pravastatin Sodium 20 MG TABLET PO (09:01)
[2021-01-28] MEDS: Nicotine 14 MG PATCH.TD24 TRANSDERMA (09:04)
--- NOTE | 2021-01-28 09:26 | P.PNOP_ITS ---
Subjective Subjective Date of Service: 01/28/21 Interval history: Postop day 1 status post percutaneous pinning of the right hip No overnight events Resting comfortably in bed Denies shortness of breath chest pain or palpitations Physical Exam Vital Signs: Vital Signs: Last Vital Signs Temp 98.3 F 01/28/21 07:18 Pulse 78 01/28/21 09:16 Resp 16 01/28/21 07:18 BP 165/67 H 01/28/21 09:16 Pulse Ox 96 01/28/21 07:18 Body Mass Index 30.0 Const: General: cooperative, healthy appearing and no acute distress Resp: Effort & Inspection: normal respiratory effort and able to speak in complete sentences Cardio: Rate: regular rate Peripheral pulses: Peripheral pulses 2+ throughout GI: Palpation (GI): Soft to palpation Skin: General skin exam: no rashes or lesions noted Extrem: Other: Right hip incision clean dry and intact. No redness or drainage. Mild tenderness over incision. Procedures Date of Service Date of Service: 01/28/21 Progress Note: A&P Assessment and plan (1) Closed subcapital fracture of femur: Status: Acute Assessment and Plan: Continue pain management Begin Lovenox for DVT prophylaxis Begin physical therapy and occupational therapy for right hip [id number] as tolerated Dispo planning: PT eval and pain management Fall Risk Details Current Medications: Current Medications Acetaminophen (Acetaminophen 325 Mg Tablet) 650 mg PO Q6H PRN PRN Reason: Pain, Mild (Pain Scale 1-3) Divalproex Sodium (Divalproex Sodium 250 Mg Tablet.) 750 mg PO BID [facility] Last Admin: 01/28/21 08:59 Dose: 750 mg Documented by: Enoxaparin Sodium (Enoxaparin Sodium 40 Mg/0.4 Ml Syringe) 40 mg SUBCUT Q24H [facility] Fluoxetine HCl (Fluoxetine Hcl 20 Mg Capsule) 40 mg PO DAILY [facility] Last Admin: 01/28/21 09:00 Dose: 40 mg Documented by: Folic Acid (Folic Acid 1 Mg Tablet) 1 mg PO DAILY [facility] Last Admin: 01/28/21 09:01 Dose: 1 mg Documented by: Lisinopril (Lisinopril 10 Mg Tablet) 10 mg PO DAILY [facility]; Protocol Last Admin: 01/28/21 09:01 Dose: 10 mg Documented by: Morphine Sulfate (Morphine Sulfate 4 Mg/Ml Cartridge) 4 mg IVPUSH Q4H PRN; P rotocol PRN Reason: Pain, Severe (Pain Scale 7-10) Last Admin: 01/28/21 03:41 Dose: 4 mg Documented by: Nicotine (Nicotine 14 Mg Patch.Td24) 14 mg TRANSDERMA DAILY [facility] Last Admin: 01/28/21 09:04 Dose: 14 mg Documented by: Ondansetron HCl (Ondansetron Hcl 4 Mg/2 Ml Vial) 4 mg IVPUSH Q8H PRN PRN Reason: Nausea and Vomiting Phenytoin Sodium (Phenytoin Sodium Extended 100 Mg Capsule) 100 mg PO QID [facility] Last Admin: 01/28/21 09:00 Dose: 100 mg Documented by: Pravastatin Sodium (Pravastatin Sodium 20 Mg Tablet) 20 mg PO DAILY [facility] Last Admin: 01/28/21 09:01 Dose: 20 mg Documented by: Sodium Chloride (0.9 % Sodium Chloride Flush 3 Ml Syringe) 3 ml IVFLUSH QSHIFT [facility] Last Admin: 01/28/21 08:59 Dose: 3 ml Documented by: Vitamin D (Cholecalciferol (Vitamin D3) 25 Mcg Tablet) 50 mcg PO DAILY [facility] Last Admin: 01/28/21 08:59 Dose: 50 mcg Documented by: Time Spent With Patient Time: Total time spent is greater than 50% in coordination of care (as documented) at patient's floor/unit and/or counseling patient: Time with patient: less than 15 minutes Quality Stroke Does the patient have a stroke diagnosis?: No VTE Prior VTE?: No VTE Risk Level:: Medical - moderate - high VTE Device Contraindication: N/A - Device Ordered VTE Drug Contraindication: Treatment Not Indicated
[2021-01-28] MEDS: Enoxaparin Sodium 40 MG/0.4 ML SYRINGE SUBCUT (10:05)
--- NOTE | 2021-01-28 12:58 | HO.PM.IMPN ---
Subjective Subjective Date of Service: 01/28/21 Interval History: cc: fall interval history: able to stand, pain controlled Cardiovascular Cardiovascular: Reports no additional cardiovascular complaints Respiratory Respiratory: Reports no additional respiratory complaints Physical Exam Vital Signs: Vital Signs: Last Vital Signs Temp 98.3 F 01/28/21 11:04 Pulse 77 01/28/21 11:04 Resp 16 01/28/21 11:04 BP 121/61 01/28/21 11:04 Pulse Ox 97 01/28/21 11:04 Body Mass Index 30.0 General: AO X 3, no acute distress Resp: CTA bilateral, no accessory muscles used CVS: S1,S2,RRR GI: soft, non tender, non distended Neuro: motor grossly intact, alert Psych: appropriate affect, appropriate insight Objective Data Active Medications Acetaminophen (Acetaminophen 325 Mg Tablet) 650 mg PO Q6H PRN PRN Reason: Pain, Mild (Pain Scale 1-3) Divalproex Sodium (Divalproex Sodium 250 Mg Tablet.) 750 mg PO BID [facility] Last Admin: 01/28/21 08:59 Dose: 750 mg Documented by: EVELYN Enoxaparin Sodium (Enoxaparin Sodium 40 Mg/0.4 Ml Syringe) 40 mg SUBCUT Q24H [facility] Last Admin: 01/28/21 10:05 Dose: 40 mg Documented by: EVELYN Fluoxetine HCl (Fluoxetine Hcl 20 Mg Capsule) 40 mg PO DAILY [facility] Last Admin: 01/28/21 09:00 Dose: 40 mg Documented by: EVELYN Folic Acid (Folic Acid 1 Mg Tablet) 1 mg PO DAILY [facility] Last Admin: 01/28/21 09:01 Dose: 1 mg Documented by: EVELYN Lisinopril (Lisinopril 10 Mg Tablet) 10 mg PO DAILY [facility]; Protocol Last Admin: 01/28/21 09:01 Dose: 10 mg Documented by: EVELYN Morphine Sulfate (Morphine Sulfate 4 Mg/Ml Cartridge) 4 mg IVPUSH Q4H PRN; Protocol PRN Reason: Pain, Severe (Pain Scale 7-10) Last Admin: 01/28/21 10:02 Dose: 4 mg Documented by: EVELYN Nicotine (Nicotine 14 Mg Patch.Td24) 14 mg TRANSDERMA DAILY [facility] Last Admin: 01/28/21 09:04 Dose: 14 mg Documented by: EVELYN Ondansetron HCl (Ondansetron Hcl 4 Mg/2 Ml Vial) 4 mg IVPUSH Q8H PRN PRN Reason: Nausea and Vomiting Phenytoin Sodium (Phenytoin Sodium Extended 100 Mg Capsule) 100 mg PO QID [facility] Last Admin: 01/28/21 09:00 Dose: 100 mg Documented by: EVELYN Pravastatin Sodium (Pravastatin Sodium 20 Mg Tablet) 20 mg PO DAILY [facility] Last Admin: 01/28/21 09:01 Dose: 20 mg Documented by: EVELYN Sodium Chloride (0.9 % Sodium Chloride Flush 3 Ml Syringe) 3 ml IVFLUSH QSHIFT [facility] Last Admin: 01/28/21 08:59 Dose: 3 ml Documented by: EVELYN Vitamin D (Cholecalciferol (Vitamin D3) 25 Mcg Tablet) 50 mcg PO DAILY [facility] Last Admin: 01/28/21 08:59 Dose: 50 mcg Documented by: EVELYN Labs CBC & Chem 7: 01/28/21 05:26 01/28/21 05:26 Labs: Laboratory Results - last 24 hr 01/28/21 01/28/21 05:26 05:26 MCV 99.2 H MCH 33.2 H MCHC 33.5 RDW 13.0 Plt Count 130 L MPV 10.5 Absolute Nucleated RBC 0.000 Nucleated RBC % (auto) 0.0 Anion Gap 11 L Estim Creat Clear Calc 77.3 Estimated GFR > 60 Random Glucose 92 Calcium 7.8 L Assessment and Plan (1) Tobacco dependence: Status: Acute (2) History of coronary artery disease: Status: Chronic (3) Closed subcapital fracture of femur: Status: Acute Assessment and Plan: 65-year-old female with past medical history of coronary artery disease status post ND, 10 years ago, hypertension, and seizure disorder presents to the hospital after a fall found to have proximal femur fracture Right subcapital femur fracture secondary to mechanical fall POD 1 (01/27) Pain control h/o CAD has not seen paver layer in years. no chest pain seen by cardiology for preop eval -continue statin -not on asa, or BB per med rec -echo LVEF 64% with no WMA; mild hypertension - continue Lisinopril -monitor BP closely history of seizure disorder - continue Depakote and phenytoin hyperlipidemia - continues statin Mood -continue prozac tobacco dependence smoking cessation advised -NRT DVT prophylaxis: lveonox Quality Stroke Does the patient have a stroke diagnosis?: No VTE Prior VTE?: No VTE Risk Level:: Medical - moderate - high VTE Device Contraindication: N/A - Device Ordered VTE Drug Contraindication: Treatment Not Indicated
--- NOTE | 2021-01-28 13:36 | HO.POSTANES ---
Post Anesthesia Evaluation Post Anesthesia Evaluation Vital Signs: Vital Signs Temp Pulse Resp BP Pulse Ox 01/28/21 11:04 98.3 F 77 16 121/61 97 01/28/21 09:16 78 165/67 H 01/28/21 09:01 78 165/67 H 01/28/21 07:18 98.3 F 78 16 165/67 H 96 01/28/21 04:00 98.1 F 72 18 124/61 93 Anesthesia: General Mental Status: Awake Pain Control: Satisfactory Nausea/Vomiting: None Hydration: Adequate Anesthesia-Related Issues: No Anes. Related Issues
--- NOTE | 2021-01-28 19:31 | PC.NURSE ---
Pt had hoyos removed at 1000 01/28/21.
[2021-01-29] VITALS: BP 138/72; PULSE 75; RESP 17; TEMP 36.7; O2SAT 97
[2021-01-29 03:38] VITALS: BP 178/82; PULSE 74; RESP 17; TEMP 36.7; O2SAT 94
--- NOTE | 2021-01-29 04:46 | PC.NURSE ---
pt wanted to use the bedpan for urinating. After a few minutes on, she was done but no urine in lord. Pt was bladder scanned. PT was retaining 850 ml of urine. Md was notified. Straight cath was ordered. 800 cc of urine was discarded from straight cath
[2021-01-29 05:46] LABS: Hematocrit 34.9 % (37.0-47.0); Hemoglobin 11.6 g/dl (12.0-16.0); Mean Corpuscular HGB Conc 33.2 g/dl (31.0-35.0); Mean Corpuscular Hemoglobin 32.6 pg (27.0-33.0); Mean Platelet Volume 10.8 fL (9.4-12.3); Platelet Count 138 X10*3/uL (160-400); Red Blood Count 3.56 X10*6/uL (4.20-5.50); Red Cell Distribution Width 12.8 % (11.0-16.0); White Blood Count 4.7 X10*3/uL (4.8-10.8)
[2021-01-29 06:07] LABS: Anion Gap 10 (12-20); Blood Urea Nitrogen 16 mg/dL (9-16); Carbon Dioxide 27 mmol/L (22-29); Chloride 103 mmol/L (96-108); Creatinine Clr Calc Pharmacy 80.6; Estimated Glomerular Filt Rate > 60; Glucose Random 92 mg/dL (60-115); Potassium 4.1 mmol/L (3.3-5.1); Sodium 136 mmol/L (135-145)
[2021-01-29 07:27] VITALS: BP 159/72; PULSE 68; RESP 18; TEMP 36.4; O2SAT 91
--- NOTE | 2021-01-29 08:51 | PM.PNORT ---
Subjective Subjective Date of Service: 01/29/21 Interval history: POD2 status post percutaneous pinning of the right hip. No overnight events. Resting comfortably in bed. Pain is well managed. No additional complaints. Physical Exam Vital Signs: Vital Signs: Last Vital Signs Temp 97.6 F 01/29/21 07:27 Pulse 68 01/29/21 07:27 Resp 18 01/29/21 07:27 BP 159/72 H 01/29/21 07:27 Pulse Ox 91 L 01/29/21 07:27 Body Mass Index 30.0 Extrem: Other: Right hip incision clean dry and intact.? No redness or drainage.? Mild tenderness over incision. Procedures Date of Service Date of Service: 01/29/21 Progress Note: A&P Assessment and plan (1) Closed subcapital fracture of femur: Status: Acute Assessment and Plan: Continue pain management Continue Lovenox for DVT prophylaxis Continue physical therapy and occupational therapy for right hip [id number]-[id number] as tolerated Dispo planning:? PT and pain management, clear for D/C from ortho perspective Fall Risk Details Current Medications: Current Medications Acetaminophen (Acetaminophen 325 Mg Tablet) 650 mg PO Q6H PRN PRN Reason: Pain, Mild (Pain Scale 1-3) Divalproex Sodium (Divalproex Sodium 250 Mg Tablet.) 750 mg PO BID [facility] Last Admin: 01/28/21 21:19 Dose: 750 mg Documented by: Enoxaparin Sodium (Enoxaparin Sodium 40 Mg/0.4 Ml Syringe) 40 mg SUBCUT Q24H [facility] Last Admin: 01/28/21 10:05 Dose: 40 mg Documented by: Fluoxetine HCl (Fluoxetine Hcl 20 Mg Capsule) 40 mg PO DAILY [facility] Last Admin: 01/28/21 09:00 Dose: 40 mg Documented by: Folic Acid (Folic Acid 1 Mg Tablet) 1 mg PO DAILY [facility] Last Admin: 01/28/21 09:01 Dose: 1 mg Documented by: Lisinopril (Lisinopril 10 Mg Tablet) 10 mg PO DAILY [facility]; Protocol Last Admin: 01/28/21 09:01 Dose: 10 mg Documented by: Morphine Sulfate (Morphine Sulfate 4 Mg/Ml Cartridge) 4 mg IVPUSH Q4H PRN; Protocol PRN Reason: Pain, Severe (Pain Scale 7-10) Last Admin: 11/10/21 22:48 Dose: 4 mg Documented by: Nicotine (Nicotine 14 Mg Patch.Td24) 14 mg TRANSDERMA DAILY [facility] Last Admin: 01/28/21 09:04 Dose: 14 mg Documented by: Ondansetron HCl (Ondansetron Hcl 4 Mg/2 Ml Vial) 4 mg IVPUSH Q8H PRN PRN Reason: Nausea and Vomiting Phenytoin Sodium (Phenytoin Sodium Extended 100 Mg Capsule) 100 mg PO QID [facility] Last Admin: 01/28/21 21:19 Dose: 100 mg Documented by: Pravastatin Sodium (Pravastatin Sodium 20 Mg Tablet) 20 mg PO DAILY [facility] Last Admin: 01/28/21 09:01 Dose: 20 mg Documented by: Sodium Chloride (0.9 % Sodium Chloride Flush 3 Ml Syringe) 3 ml IVFLUSH QSHIFT [facility] Last Admin: 01/28/21 21:21 Dose: 3 ml Documented by: Vitamin D (Cholecalciferol (Vitamin D3) 25 Mcg Tablet) 50 mcg PO DAILY [facility] Last Admin: 01/28/21 08:59 Dose: 50 mcg Documented by: Time Spent With Patient Time: Total time spent is greater than 50% in coordination of care (as documented) at patient's floor/unit and/or counseling patient: Time with patient: less than 15 minutes Quality Stroke Does the patient have a stroke diagnosis?: No VTE Prior VTE?: No VTE Risk Level:: Medical - moderate - high VTE Device Contraindication: N/A - Device Ordered VTE Drug Contraindication: Treatment Not Indicated
[2021-01-29] MEDS: FLUoxetine HCl 20 MG CAPSULE 40 MG PO (08:53)
[2021-01-29] MEDS: Cholecalciferol (Vitamin D3) 25 MCG TABLET 50 MCG PO (08:53)
[2021-01-29 08:54] VITALS: BP 159/72; PULSE 68
[2021-01-29] MEDS: Pravastatin Sodium 20 MG TABLET PO (08:54)
[2021-01-29] MEDS: Phenytoin Sodium Extended 100 MG CAPSULE PO ×2 (08:54→11:51)
[2021-01-29] MEDS: Divalproex Sodium 250 MG TABLET.DR 750 MG PO (08:54)
[2021-01-29] MEDS: 0.9 % Sodium Chloride Flush 3 ML SYRINGE IVFLUSH (08:54)
[2021-01-29] MEDS: lisinopriL 10 MG TABLET PO (08:54)
[2021-01-29] MEDS: Folic Acid 1 MG TABLET PO (08:54)
[2021-01-29 10:36] VITALS: BP 159/72; PULSE 68
--- NOTE | 2021-01-29 11:05 | PM.DS ---
DS: Providers Provider Date of Service: 01/29/21 Date of admission: 01/26/21 05:28 Primary care physician: Glen Pugh MD Consults: 01/26/21 05:35 Consult to Orthopedics Routine Consulting Provider: Tonny Adorno Reason for consultation: hip fracture Has provider been notified: No 01/26/21 09:35 Consult to Cardiology Routine Consulting Provider: Rodolfo Ramos Reason for consultation: preop eval; h/o cad, Has provider been notified: No DS: Diagnosis Discharge Diagnosis (1) Closed subcapital fracture of femur: Status: Acute DS: Summary Hospital Course Hospital Course: Patient was admitted for fall and proximal right femur fracture. She underwent pinning on 01/27/2021. Patient did have some mild urinary retention postoperatively which was managed with intermittent catheterization. The should be continue to monitored. Advised patient is feeling better and will be discharged to longterm facility for short-term rehab. She will continue on Lovenox for DVT prophylaxis and follow up with Orthopedics. Time Spent with Patient Time attestation: Total time spent providing and/or coordinating discharge services: Discharge coordination time: Greater than 30 minutes Quality: Stroke Does the patient have a stroke diagnosis?: No Physical Exam Vital Signs: Vital Signs: Last Vital Signs Temp 97.6 F 01/29/21 07:27 Pulse 68 01/29/21 10:36 Resp 18 01/29/21 07:27 BP 159/72 H 01/29/21 10:36 Pulse Ox 91 L 01/29/21 07:27 Body Mass Index 30.0 General: AO X 3, no acute distress Resp: CTA bilateral, no accessory muscles used CVS: S1,S2,RRR GI: soft, non tender, non distended Neuro: motor grossly intact, alert Psych: appropriate affect, appropriate insight DS: Data Data Completed and Pending Labs on day of discharge: Laboratory Results - last 24 hr 01/29/21 01/29/21 05:18 05:18 WBC 4.7 L RBC 3.56 L Hgb 11.6 L Hct 34.9 L MCV 98.0 MCH 32.6 MCHC 33.2 RDW 12.8 Plt Count 138 L MPV 10.8 Absolute Nucleated RBC 0.000 Nucleated RBC % (auto) 0.0 Sodium 136 Potassium 4.1 Chloride 103 Carbon Dioxide 27 Anion Gap 10 L BUN 16 Creatinine 0.70 Estim Creat Clear Calc 80.6 Estimated GFR > 60 Random Glucose 92 Calcium 8.0 L Discharge Plan Discharge Patient Disposition: Xfer SNF Discharge Diagnosis: s/p Right hip percutaneus pinning Referrals: Jennifer Tillman PA-C [Physician Accounts Administrator] - 2 Weeks (02/09/21 at 11:15 ) Glen Pugh MD [Primary Care Provider] - 1 Week Discharge Medications: New enoxaparin 40 mg/0.4 mL Syringe 40 mg subcut Q24H 42 Days Qty: 16.8 RF: 0 Continued fluoxetine 40 mg capsule 1 cap PO DAILY RF: 0 divalproex 250 mg tablet,delayed release (DR/EC) 3 tab PO BID RF: 0 phenytoin sodium extended 100 mg capsule 1 tab PO QID RF: 0 lisinopril 10 mg tablet 1 tab PO DAILY RF: 0 folic acid 1 mg tablet 1 tab PO DAILY RF: 0 pravastatin 20 mg tablet 1 tab PO DAILY RF: 0 cholecalciferol (vitamin D3) [Vitamin D3] 50 mcg (2,000 unit) tablet 1 tab PO DAILY RF: 0 Discharge Orders: Discharge Order (Routine); Ordered 01/29/21 Ordered By: Jevon Cunningham Diet: regular diet Activity on Discharge: Use cane or walker Stand Alone Forms: Patient Portal Discharge page Care Plan Goals: recovery Health Concerns: urinary retention Plan of Treatment: monitor output, straight cath as needed Assessment: Gait training, strengthening, ADLs Continue Lovenox for dvt ppx x4 weeks Keep dressing clean,dry and intact-no showering or tub baths Follow up with Orthopedics in 2 weeks
[2021-01-29 11:27] VITALS: BP 141/69; PULSE 74; RESP 20; TEMP 36.3; O2SAT 93
--- NOTE | 2021-01-29 11:37 | MHC.CM.PN ---
Addendum entered by Angelina Issa 01/29/21 12:41: PLAN IS FOR 1400 TRANSFER TO FACILITY. RN, UNIT, AND PATIENT AWARE. Original Note: PATIENT PREFERS [facility] OVER [facility]. FACILITIES MADE AWARE IN [place]CRIPTS. PLAN IS FOR DC TODAY VIA [facility]. PATIENT ASK THAT HER BROTHER NOT BE INFORMED OF ANY PLANS WHEN ASKED WHO THIS HORN PLAYER CAN INFORM, SHE RELIES NOBODY REALLY . IMM 12/28/20 IN CHART
[2021-01-29] MEDS: Enoxaparin Sodium 40 MG/0.4 ML SYRINGE SUBCUT (11:41)
[2021-01-29] MEDS: Acetaminophen 325 MG TABLET 650 MG PO (11:51)
[2021-01-29 12:09] LABS: COVID-19 Test Negative (Negative)
--- NOTE | 2021-01-29 16:50 | P.OP_ITS ---
Operative Note Operative Note Date of Service: 01/27/21 Narrative: Pre-op diagnosis: valgus impacted RIGHT femoral neck fracture Post-op diagnosis: same Procedure: RIGHT hip CRPP Implants: Naseem 8.0 partially threaded cannulated screws x 3 ( 85,80,80) Surgeon: Tonny Adorno MD Anesthesia: GETA and local Was an [place] Operator used for this Procedure?: No Estimated blood loss (mL): 25 IV fluids (mL): 800 Pathology: none sent Condition: stable Disposition: PACU Procedure in detail: Patient was brought to the operative room placed supine on the [place] table. All bony prominences were well padded he was prepped and draped in standard sterile fashion. IV antibiotics per weight were administered and a time-out was called to identify proper site proper procedure proper surgeon. Radiographs were available and confirmed. I began by obtaining AP and lateral radiographs. This was a valgus impacted fracture that I did not reduce. I identified my start point just at the level of the proximal aspect of the lesser trochanter and then made a 2 cm incision at this level. Then using standard inverted triangle configuration, 3 guidewires were placed,inferior to superior, traversing the femoral neck and across the fracture into the head. Biplanar fluoroscopy was used to confirm that the hardware was intraosseous and not penetrating the hip joint. I measured off of the K-wires and then placed 3 8.0 mm partially- threaded cannulated screws across the hip fracture. Again biplanar fluoroscopy was used to confirm location of the screws and reduction of the fracture. Once I was satisfied with the reduction all instrumentation was removed. The wound was irrigated copiously and approximately 20 mL of 0.25% Marcaine with epinephrine was injected about the incision. Sterile dressings were applied. was then awakened from anesthesia and brought to the recovery room in stable con dition there were no known complications.
== END 2021-01-29 14:23 | disposition skilled nursing facility (03) | DRG 482 ==
LOC: HO.ED 05:33 → HO.EDOVER 05:37 → HO.S3 17:59
PROVIDERS: Orthopaedic Surgery; Physician Assistant Medical; Admitting Provider Internal Medicine; Emergency Provider Emergency Medicine Emergency Medical Services; PCP Internal Medicine; Visit Provider Internal Medicine
PROC: 0QH634Z Insertion of Internal Fixation Device into Right Upper Femur, Percutaneous Approach (ICD-10-PCS; principal; 2021-01-27 14:00)
DX: S72.011A Unspecified intracapsular fracture of right femur, initial encounter for closed fracture (principal); W01.0XXA Fall on same level from slipping, tripping and stumbling without subsequent striking against object, initial encounter; Y93.02 Activity, running; Y92.9 Unspecified place or not applicable; Y99.9 Unspecified external cause status; G40.909 Epilepsy, unspecified, not intractable, without status epilepticus; I25.10 Atherosclerotic heart disease of native coronary artery without angina pectoris; I35.0 Nonrheumatic aortic (valve) stenosis; Z20.822 Contact with and (suspected) exposure to COVID-19; F39 Unspecified mood [affective] disorder; I25.2 Old myocardial infarction; E11.9 Type 2 diabetes mellitus without complications; E78.5 Hyperlipidemia, unspecified; I10 Essential (primary) hypertension; F17.210 Nicotine dependence, cigarettes, uncomplicated; Z71.6 Tobacco abuse counseling; Z79.899 Other long term (current) 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
CPT/HCPCS: 36415; 73502; 73552; 80048; 80053; 81001; 82947; 84484; 85025; 85027; 85610; 85730; 86850; 86900; 86901; 87635; 93005; 93306; 97110; 97116; 97161; 97165; 99285; C1713; C1769; J0690; J1650; J2270; J3010

== ENCOUNTER 2021-02-09 07:57 | Outpatient (REF) | payer MEDICARE, MEDICAID, SELFPAY ==
--- NOTE | ~2021-02-09 | XR_ITS ---
EXAMINATION: XR PELVIS XR HIP, RIGHT CLINICAL INFORMATION: Recent subcapital right hip fracture. Follow-up. COMPARISON: Radiographs pelvis and right hip 01/26/2021. TECHNIQUE: AP view pelvis is performed along with AP and frog-lateral projections right hip. FINDINGS: Right hip fracture is reduced with 3 screws. No significant change in alignment. No dislocation or destructive process. The hardware is intact. There are degenerative changes lower lumbar spine. The SI joints and pubis show no diastases. No pelvic fracture. Bowel gas unremarkable. XR/XR hip RT min 2V IMPRESSION: Status post reduction right hip. Hardware intact. No change in alignment.
--- NOTE | ~2021-02-09 | XR_ITS ---
EXAMINATION: XR PELVIS XR HIP, RIGHT CLINICAL INFORMATION: Recent subcapital right hip fracture. Follow-up. COMPARISON: Radiographs pelvis and right hip 01/26/2021. TECHNIQUE: AP view pelvis is performed along with AP and frog-lateral projections right hip. FINDINGS: Right hip fracture is reduced with 3 screws. No significant change in alignment. No dislocation or destructive process. The hardware is intact. There are degenerative changes lower lumbar spine. The SI joints and pubis show no diastases. No pelvic fracture. Bowel gas unremarkable. XR/XR pelvis 1-2V IMPRESSION: Status post reduction right hip. Hardware intact. No change in alignment.
== END 2021-02-09 07:58 | disposition home or self-care (01) ==
LOC: HO.HOSX 07:57
PROVIDERS: Visit Provider Physician Assistant
DX: S72.011D Unspecified intracapsular fracture of right femur, subsequent encounter for closed fracture with routine healing (principal); F17.210 Nicotine dependence, cigarettes, uncomplicated
CPT/HCPCS: 72170; 73502; 99212

== ENCOUNTER 2021-03-19 05:30 | Outpatient (REF) | payer MEDICARE, MEDICAID, SELFPAY ==
--- NOTE | ~2021-03-19 | XR_ITS ---
EXAMINATION: CR X-RAY PELVIS AND HIP RIGHT CLINICAL INFORMATION: Pelvic and right hip pain. COMPARISON: 02/09/2021 pelvic radiographs. TECHNIQUE: 2 views of the right hip as well as a single view of the pelvis were obtained. FINDINGS: The patient is status post right hip ORIF showing [address] showing good anatomic alignment and no evidence for hardware malfunction. There is no acute fracture or dislocation. The soft tissues are unremarkable. XR/XR pelvis 1-2V IMPRESSION: 1. Status post right hip ORIF without acute abnormality or significant change.
--- NOTE | ~2021-03-19 | XR_ITS ---
EXAMINATION: CR X-RAY PELVIS AND HIP RIGHT CLINICAL INFORMATION: Pelvic and right hip pain. COMPARISON: 02/09/2021 pelvic radiographs. TECHNIQUE: 2 views of the right hip as well as a single view of the pelvis were obtained. FINDINGS: The patient is status post right hip ORIF showing [address] showing good anatomic alignment and no evidence for hardware malfunction. There is no acute fracture or dislocation. The soft tissues are unremarkable. XR/XR hip RT min 2V IMPRESSION: 1. Status post right hip ORIF without acute abnormality or significant change.
== END 2021-03-19 05:31 | disposition home or self-care (01) ==
LOC: HO.HOSX 05:30
PROVIDERS: Visit Provider Physician Assistant
DX: M25.551 Pain in right hip (principal); S72.001D Fracture of unspecified part of neck of right femur, subsequent encounter for closed fracture with routine healing; X58.XXXD Exposure to other specified factors, subsequent encounter; I25.10 Atherosclerotic heart disease of native coronary artery without angina pectoris; I25.2 Old myocardial infarction; I10 Essential (primary) hypertension; F17.210 Nicotine dependence, cigarettes, uncomplicated; Z88.1 Allergy status to other antibiotic agents
CPT/HCPCS: 72170; 73502; 99212

== ENCOUNTER 2021-04-29 08:16 | Outpatient (REF) | payer MEDICARE, MEDICAID, SELFPAY ==
--- NOTE | ~2021-04-29 | XR_ITS ---
EXAMINATION: XR RIGHT HIP XR PELVIS CLINICAL INFORMATION: Right hip pain. COMPARISON: 03/09/2021 TECHNIQUE: AP and frog-leg lateral views of the right hip and an AP view of the pelvis. FINDINGS: Three partially-threaded cannulated screws are again seen across the valgus impacted subcapital fracture. Alignment is unchanged as compared to prior. Hardware remains intact. The fracture line is more ill-defined at the medial cortex, likely due to partial healing. Bones are osteopenic. 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 Chronic osseous fragmentation of the greater tuberosity is unchanged. No new fractures. Calcific of the sclerosis is present in the iliac and femoral arteries. XR/XR hip RT min 2V IMPRESSION: Unchanged alignment of the subcapital fracture status post ORIF. Progressive healing is suspected.
--- NOTE | ~2021-04-29 | XR_ITS ---
EXAMINATION: XR RIGHT HIP XR PELVIS CLINICAL INFORMATION: Right hip pain. COMPARISON: 03/09/2021 TECHNIQUE: AP and frog-leg lateral views of the right hip and an AP view of the pelvis. FINDINGS: Three partially-threaded cannulated screws are again seen across the valgus impacted subcapital fracture. Alignment is unchanged as compared to prior. Hardware remains intact. The fracture line is more ill-defined at the medial cortex, likely due to partial healing. Bones are osteopenic. 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 Chronic osseous fragmentation of the greater tuberosity is unchanged. No new fractures. Calcific of the sclerosis is present in the iliac and femoral arteries. XR/XR pelvis 1-2V IMPRESSION: Unchanged alignment of the subcapital fracture status post ORIF. Progressive healing is suspected.
== END 2021-04-29 08:17 | disposition home or self-care (01) ==
LOC: HO.HOSX 08:16
PROVIDERS: Visit Provider Physician Assistant
DX: S72.001D Fracture of unspecified part of neck of right femur, subsequent encounter for closed fracture with routine healing (principal)
CPT/HCPCS: 72170; 73502; 99212

== ENCOUNTER → 2022-02-09 10:55 | Outpatient (BNVA) | payer MEDICARE, MEDICAID, SELFPAY | PROVIDERS: PCP Internal Medicine; Visit Provider Nurse Practitioner Family | DX: R25.1 Tremor, unspecified (principal); G40.909 Epilepsy, unspecified, not intractable, without status epilepticus; R29.898 Other symptoms and signs involving the musculoskeletal system; R26.89 Other abnormalities of gait and mobility; Z79.899 Other long term (current) 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 | CPT/HCPCS: 99212 ==

== ENCOUNTER → 2022-05-17 11:23 | Outpatient (BNVA) | payer MEDICARE, MEDICAID, SELFPAY | PROVIDERS: PCP Internal Medicine; Referring Provider Internal Medicine; Visit Provider Surgery | DX: M79.89 Other specified soft tissue disorders (principal) | CPT/HCPCS: 99202 ==

== ENCOUNTER → 2022-05-18 10:14 | Outpatient (BNVA) | payer MEDICARE, MEDICAID, SELFPAY | PROVIDERS: PCP Internal Medicine; Visit Provider Nurse Practitioner Family | DX: G20 Parkinson's disease (principal); G40.909 Epilepsy, unspecified, not intractable, without status epilepticus | CPT/HCPCS: 99212 ==

== ENCOUNTER 2022-06-04 07:29 | Day surgery (SDC) | payer MEDICARE, MEDICAID, SELFPAY ==
[2022-06-03 11:28] VITALS: BMI 26.8
[2022-06-03 11:53] VITALS: BMI 26.6
--- NOTE | 2022-06-03 12:49 | P.CONAN_ITS ---
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 with GA-LMA 4 PMFSH Active Problems Active Problems: All Active Problems (Updated 06/03/22 @ 11:52 by Leila Gonzalez RN) Closed subcapital fracture of femur (Acute) Closed displaced fracture of right femoral neck with routine healing (Acute) Tremor (Acute) Paraspinal soft tissue mass (Acute) Parkinson's disease (Acute) Seizure disorder (Acute) Past Medical History Medical History (Updated 06/03/22 @ 11:52 by Leila Gonzalez RN) Atherosclerotic cardiovascular disease Diabetes Fall History of alcohol abuse History of coronary artery disease History of encephalopathy History of traumatic subdural hematoma Hx of fracture of femur Hypertension Myocardial infarct Non-rheumatic aortic stenosis Preoperative cardiovascular examination Seizure disorder Tobacco dependence Family History Family History Mother No problems noted. Father No problems noted. Family history of problems with anesthesia: No Surgical History Surgical History (Updated 06/03/22 @ 11:47 by Leila Gonzalez RN) History of hip surgery History of Problems with Anesthesia: No Social History Social History (Updated 06/03/22 @ 11:31 by Leila Gonzalez RN) Household Members: Other Housing: [facility] intake: former Patient Tobacco Use Status: Current everyday Tobacco user Tobacco use type: Cigarette Cigarette Packs Per Day: 1 Cigarettes Per Day: 20.0 Second Hand Smoke Exposure: No Advance Directives Date on File: 02/07/21 service: No Current occupational status: disabled Current occupation: [employer]at [employer] Meds Allergies Allergy/AdvReac Type Severity Reaction Status Date / Time azithromycin [AZITHROMYCIN] Allergy Unknown HIVES Verified 05/18/22 10:45 Macrolide Antibiotics Allergy Unknown Unknown Verified 05/18/22 10:45 Home Medications Medication Instructions Recorded Confirmed Last Taken Type cholecalciferol (vitamin D3) 50 1 tab PO DAILY 01/26/21 06/03/22 01/25/21 History mcg (2,000 unit) tablet (Vitamin D3) divalproex 250 mg tablet,delayed 3 tab PO BID 01/26/21 06/03/22 01/25/21 History release fluoxetine 40 mg capsule 1 cap PO DAILY 01/26/21 06/03/22 01/25/21 History folic acid 1 mg tablet 1 tab PO DAILY 01/26/21 06/03/22 01/25/21 History pravastatin 20 mg tablet 1 tab PO DAILY 01/26/21 06/03/22 01/25/21 History acetaminophen 325 mg capsule 650 mg PO Q4H PRN Pain 05/18/22 06/03/22 Unknown History aluminum-mag hydroxide-simethicone 30 ml PO DAILY PRN Abdominal 05/18/22 06/03/22 Unknown History 200 mg-200 mg-20 mg/5 mL oral susp Discomfort (Mintox) docusate sodium 100 mg capsule 100 mg PO BID 05/18/22 06/03/22 Unknown History (Colace) guaifenesin 100 mg/5 mL oral liquid 200 mg PO Q4H PRN Cough 05/18/22 06/03/22 Unknown History lisinopril 20 mg tablet 20 mg PO DAILY 05/18/22 06/03/22 Unknown History loperamide 2 mg tablet 2 mg PO Q6H PRN Diarrhea 05/18/22 06/03/22 Unknown History polyethylene glycol 3350 17 17 g PO DAILY 05/18/22 06/03/22 Unknown History gram/dose oral powder (Miralax) magnesium hydroxide 400 mg/5 mL 30 ml PO DAILY PRN Constipation 06/03/22 06/03/22 Unknown History oral suspension (Milk of Magnesia) nitroglycerin 0.4 mg sublingual 0.4 mg sublingual Q5M PRN Chest 06/03/22 06/03/22 Unknown History tablet Pain phenytoin sodium extended 100 mg 2 tab PO BID 06/03/22 06/03/22 Unknown History capsule Exam Exam Date and Time: June 03, 2022 1249 Height,Weight and Vital Signs: Height 5 ft 5 in Weight 72.575 kg Narrative Narrative: ECHO 2020 Conclusions: - The left ventricular systolic function is normal.? The ? calculated ejection fraction is 64% by biplane method. ? - The basal inferior segment is akinetic.? - There is mild aortic valve stenosis.? Assessment and Plan Assessment Anesthesia Assessment: Chart Reviewed Final Anesthetic Review Family History of Problems with Anesthesia: No History of Problems with Anesthesia: No Documented by User: Karissa Mcconnell MD 06/04/22 15:11 [facility] Past Medical History Medical History (Updated 06/03/22 @ 11:52 by Leila Gonzalez RN) Atherosclerotic cardiovascular disease Diabetes Fall History of alcohol abuse History of coronary artery disease History of encephalopathy History of traumatic subdural hematoma Hx of fracture of femur Hypertension Myocardial infarct Non-rheumatic aortic stenosis Preoperative cardiovascular examination Seizure disorder Tobacco dependence Family History Family History Mother No problems noted. Father No problems noted. 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 Meds Allergies Allergy/AdvReac Type Severity Reaction Status Date / Time azithromycin [AZITHROMYCIN] Allergy Unknown HIVES Verified 05/18/22 10:45 Macrolide Antibiotics Allergy Unknown Unknown Verified 05/18/22 10:45 Home Medications Medication Instructions Recorded Confirmed Last Taken Type cholecalciferol (vitamin D3) 50 1 tab PO DAILY 01/26/21 06/03/22 01/25/21 History mcg (2,000 unit) tablet (Vitamin D3) divalproex 250 mg tablet,delayed 3 tab PO BID 01/26/21 06/03/22 01/25/21 History release fluoxetine 40 mg capsule 1 cap PO DAILY 01/26/21 06/03/22 01/25/21 History folic acid 1 mg tablet 1 tab PO DAILY 01/26/21 06/03/22 01/25/21 History pravastatin 20 mg tablet 1 tab PO DAILY 01/26/21 06/03/22 01/25/21 History acetaminophen 325 mg capsule 650 mg PO Q4H PRN Pain 05/18/22 06/03/22 Unknown History aluminum-mag hydroxide-simethicone 30 ml PO DAILY PRN Abdominal 05/18/22 06/03/22 Unknown History 200 mg-200 mg-20 mg/5 mL oral susp Discomfort (Mintox) docusate sodium 100 mg capsule 100 mg PO BID 05/18/22 06/03/22 Unknown History (Colace) guaifenesin 100 mg/5 mL oral liquid 200 mg PO Q4H PRN Cough 05/18/22 06/03/22 Unknown History lisinopril 20 mg tablet 20 mg PO DAILY 05/18/22 06/03/22 Unknown History loperamide 2 mg tablet 2 mg PO Q6H PRN Diarrhea 05/18/22 06/03/22 Unknown History polyethylene glycol 3350 17 17 g PO DAILY 05/18/22 06/03/22 Unknown History gram/dose oral powder (Miralax) magnesium hydroxide 400 mg/5 mL 30 ml PO DAILY PRN Constipation 06/03/22 06/03/22 Unknown History oral suspension (Milk of Magnesia) nitroglycerin 0.4 mg sublingual 0.4 mg sublingual Q5M PRN Chest 06/03/22 06/03/22 Unknown History tablet Pain phenytoin sodium extended 100 mg 2 tab PO BID 06/03/22 06/03/22 Unknown History capsule Exam Airway Mallampati Class: II TM Dist: >3cm Neck ROM: Full Denture: Upper Partial: Lower Heart: rr Lungs: cta Assessment and Plan Final Anesthetic Review NPO: Yes ASA Class: II Final Preanesthetic Review: No Changes in Pt Med Stat, Meds/Allgs Chart Reviewed, Consent Obtained/Reviewed and Anes Risks/Benef Reviewed Patient Risk: Intermediate Procedure Risk: Low Anesthetic Plan Anesthetic Plan: MAC: Disposition: Standard PACU
--- NOTE | 2022-06-04 | ECG_ITS ---
Test Reason : CAD, DM, Blood Pressure : / mmHG Vent. Rate : 062 BPM Atrial Rate : 062 BPM P-R Int : 164 ms QRS Dur : 098 ms QT Int : 454 ms P-R-T Axes : 059 -13 005 degrees QTc Int : 460 ms Normal sinus rhythm Normal ECG When compared with ECG of 26-JAN-2021 05:13, Nonspecific T wave abnormality no longer evident in Lateral leads Referred By: Viry Bernal Electronically Signed By:Bill Abdalla
[2022-06-04 08:04] VITALS: BP 128/62; PULSE 65; RESP 16; TEMP 37; O2SAT 96
[2022-06-04] MEDS: Lactated Ringers 1,000 ML 100 ML IVCONT (08:18)
[2022-06-04 08:24] LABS: Hematocrit 35.1 % (37.0-47.0); Mean Corpuscular HGB Conc 34.2 g/dl (31.0-35.0); Mean Corpuscular Hemoglobin 34.5 pg (27.0-33.0); Mean Corpuscular Volume 100.9 fL (80.0-98.0); Mean Platelet Volume 9.7 fL (9.4-12.3); Platelet Count 198 X10*3/uL (160-400); Red Blood Count 3.48 X10*6/uL (4.20-5.50); Red Cell Distribution Width 13.6 % (11.0-16.0); White Blood Count 5.2 X10*3/uL (4.8-10.8)
[2022-06-04 08:42] LABS: Anion Gap 12 (12-20); Blood Urea Nitrogen 20 mg/dL (9-16); Calcium 8.3 mg/dL (8.4-10.2); Carbon Dioxide 25 mmol/L (22-29); Chloride 108 mmol/L (96-108); Creatinine Clr Calc Pharmacy 61.2; Estimated Glomerular Filt Rate > 60; Glucose Fasting 85 mg/dL (60-99); Potassium 4.2 mmol/L (3.3-5.1); Sodium 141 mmol/L (135-145)
[2022-06-04 09:57] VITALS: BP 146/62; PULSE 60; RESP 18; TEMP 36.4; O2SAT 96
[2022-06-04 10:12] VITALS: BP 130/58; PULSE 58; RESP 15; O2SAT 95
--- NOTE | 2022-06-04 10:13 | W.PM.OPN ---
Operative Note Operative Note Date of Service: 06/04/22 Narrative: Preoperative diagnosis: [ deep soft tissue mass of angela cleft.] Postop diagnosis: [ deep soft tissue mass of angela cleft area] Surgeon: [] Raul Pest Control Service Sales Agent: [] Palmar physician bilingual administrative assistant student Type of Anesthesia: [ MAC ] Indication for surgery: [ symptomatic enlarging angela cleft mass. Findings: [ An approximately 5 x 5 cm deep soft tissue mass extending just superficial to the posterior sacrum. Specimen sent to pathology. Procedure: [] Patient is brought therapy theater, placed on operating table in supine position, and after an adequate level of MAC anesthesia was induced, patient was placed in right lateral decubitus position. The angela cleft area and surrounding tissues were prepped and draped in usual sterile fashion. Patient underwent 1% lidocaine and 0.5% Marcaine infiltration and a transverse incision was made over the mass in question. This carried down through skin, subcutaneous tissue, And superior and inferior flaps were made will using Bovie and the mass in question was encountered and circumferentially dissected out using electro Bovie. Specimen sent to pathology. Wound was irrigated, secured hemostasis, and closed using interrupted inverted dermal 3-0 Vicryl sutures followed by Steri-Strips and sterile dressings. Sponge, needle, instrument counts were reported to be correct. Patient tolerated the procedure well emerged from anesthesia in stable condition. Estimated blood loss was minimum.
[2022-06-04 10:23] VITALS: BP 127/56; PULSE 61; RESP 18; TEMP 36.4; O2SAT 96
[2022-06-04 10:38] VITALS: BP 121/58; PULSE 59; RESP 18; TEMP 36.4; O2SAT 97
== END 2022-06-04 12:00 | disposition home or self-care (01) ==
PROVIDERS: Nurse Practitioner; Visit Provider Surgery
PROC: (CPT 11406; principal; 2022-06-04 09:00)
DX: M79.89 Other specified soft tissue disorders (principal); R22.2 Localized swelling, mass and lump, trunk; I25.10 Atherosclerotic heart disease of native coronary artery without angina pectoris; I10 Essential (primary) hypertension; I25.2 Old myocardial infarction; I35.0 Nonrheumatic aortic (valve) stenosis; E11.9 Type 2 diabetes mellitus without complications; G40.909 Epilepsy, unspecified, not intractable, without status epilepticus; Z79.899 Other long term (current) 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; Z79.01 Long term (current) use of anticoagulants; Z88.1 Allergy status to other antibiotic agents; Z91.81 History of falling; F17.210 Nicotine dependence, cigarettes, uncomplicated; Z98.890 Other specified postprocedural states
CPT/HCPCS: 11406; 12032; 36415; 80048; 85027; 88305; 93005; J0330; J0690; J2250; J2795; J3010

== ENCOUNTER → 2022-06-11 10:00 | Outpatient (BNVA) | payer MEDICARE, MEDICAID, SELFPAY | PROVIDERS: PCP Internal Medicine; Visit Provider Surgery | DX: M79.89 Other specified soft tissue disorders (principal); F17.210 Nicotine dependence, cigarettes, uncomplicated | CPT/HCPCS: 99211 ==

== ENCOUNTER 2022-12-08 16:16 | Emergency (ER) | payer MEDICARE, MEDICAID, SELFPAY ==
--- NOTE | ~2022-12-08 | CT_ITS ---
Indication: Fall, on blood thinners EXAMINATION: CT brain, CT cervical spine. Axial imaging with coronal and sagittal reformatted images. This CT examination was performed using dose optimization techniques as appropriate, variously including the following: *Automated exposure control *Adjustment of mA and/or kV according to patient size (this includes techniques or standardized protocols for targeted exams where dose is matched to indication/reason for exam; i.e. extremities or head) *Use of iterative reconstruction technique. Radiation dose [address] brain; Comparison previous dated 01/04/2018. There is no midline shift. There is no mass effect. There is no hemorrhage here. The basilar cisterns appear patent. The posterior fossa risk grossly within normal limits. No extra-axial collection. Note is made of areas of white matter ischemic change and volume loss ongoing from previous. There is no evidence for fracture on the bone windows. Cervical spine; No acute fracture or dislocation. Thyroid nodularity is noted. Consider ultrasound Carotid calcification CT/CT cervical spine wo IV con IMPRESSION: Negative acute noncontrast CT of the brain. Ongoing white matter ischemic change and volume loss is noted. No acute fracture or dislocation of the cervical spine. Other findings are as described above
--- NOTE | ~2022-12-08 | XR_ITS ---
Examination: Right humerus and right shoulder. Clinical indications: Status post fall with pain. COMPARISON: Chest x-ray 09/12/2017. TECHNIQUE: Right shoulder 3 views. Right humerus 2 views. FINDINGS: Right shoulder: There is a comminuted fracture right humeral neck without dislocation. No additional fracture seen. Right humerus: AP and lateral views right humerus reveals with fracture right humeral neck without dislocation. Rest of the right humerus is intact. The soft tissues are normal. XR/XR humerus RT IMPRESSION: 1. Comminuted right humeral neck fracture without dislocation. 2. Rest of the right humerus is unremarkable.
--- NOTE | ~2022-12-08 | XR_ITS ---
Examination: Right humerus and right shoulder. Clinical indications: Status post fall with pain. COMPARISON: Chest x-ray 09/12/2017. TECHNIQUE: Right shoulder 3 views. Right humerus 2 views. FINDINGS: Right shoulder: There is a comminuted fracture right humeral neck without dislocation. No additional fracture seen. Right humerus: AP and lateral views right humerus reveals with fracture right humeral neck without dislocation. Rest of the right humerus is intact. The soft tissues are normal. XR/XR shoulder RT min 2V IMPRESSION: 1. Comminuted right humeral neck fracture without dislocation. 2. Rest of the right humerus is unremarkable.
--- NOTE | ~2022-12-08 | CT_ITS ---
Indication: Fall, on blood thinners EXAMINATION: CT brain, CT cervical spine. Axial imaging with coronal and sagittal reformatted images. This CT examination was performed using dose optimization techniques as appropriate, variously including the following: *Automated exposure control *Adjustment of mA and/or kV according to patient size (this includes techniques or standardized protocols for targeted exams where dose is matched to indication/reason for exam; i.e. extremities or head) *Use of iterative reconstruction technique. Radiation dose [address] brain; Comparison previous dated 01/04/2018. There is no midline shift. There is no mass effect. There is no hemorrhage here. The basilar cisterns appear patent. The posterior fossa risk grossly within normal limits. No extra-axial collection. Note is made of areas of white matter ischemic change and volume loss ongoing from previous. There is no evidence for fracture on the bone windows. Cervical spine; No acute fracture or dislocation. Thyroid nodularity is noted. Consider ultrasound Carotid calcification CT/CT head/brain wo IV con IMPRESSION: Negative acute noncontrast CT of the brain. Ongoing white matter ischemic change and volume loss is noted. No acute fracture or dislocation of the cervical spine. Other findings are as described above
--- NOTE | 2022-12-08 16:20 | ED_ITS ---
HPI - Fall General Chief Complaint: Extremity Injury, Upper Stated Complaint: Fall/trip on escalator. R shoulder pain Time Seen by Provider: 12/08/22 16:19 Source: patient and EMS Mode of arrival: EMS Limitations: no limitations History of Present Illness HPI Narrative: 67 yo female with history of Parkinson's disease, seizure disorder, hx falls, hx right hip fracture s/p pinning 01/2021, hx CAD, aortic stensosis, hx traumatic SDH, HTN, DM who presents to the ER via EMS from the [facility] for evaluation of a mechanical fall on the escalator. She missed the step and fell onto her right side injuring her right arm and shoulder. She cannot move her right arm. She did not hit her head or lose consciousness. She is not sure if she is on blood thinners. She denies any chest pain, abdominal pain, or LE pain. She reports some soreness across her lower back as well. No urinary symptoms. She reports walking without any assist devices at baseline. She is from [facility]. complaint: fall Onset (ago): minute(s) Fall from: standing Fall witnessed: yes, by bystander Place fall occurred: other ([facility]) Loss of consciousness: none Prolonged down time: no Symptoms prior to fall: none Context: tripped/slipped Location of injury - extremities: right: shoulder and arm Severity: moderate Quality: aching Associated symptoms (after fall): denies Related Data Home Medications Medication Instructions Recorded Confirmed cholecalciferol (vitamin D3) 50 1 tab PO DAILY 01/26/21 06/11/22 mcg (2,000 unit) tablet (Vitamin D3) divalproex 250 mg tablet,delayed 3 tab PO BID 01/26/21 06/11/22 release fluoxetine 40 mg capsule 1 cap PO DAILY 01/26/21 06/11/22 folic acid 1 mg tablet 1 tab PO DAILY 01/26/21 06/11/22 pravastatin 20 mg tablet 1 tab PO DAILY 01/26/21 06/11/22 acetaminophen 325 mg capsule 650 mg PO Q4H PRN Pain 05/18/22 06/11/22 aluminum-mag hydroxide-simethicone 30 ml PO DAILY PRN Abdominal 05/18/22 06/11/22 200 mg-200 mg-20 mg/5 mL oral susp Discomfort (Mintox) docusate sodium 100 mg capsule 100 mg PO BID 05/18/22 06/11/22 (Colace) guaifenesin 100 mg/5 mL oral liquid 200 mg PO Q4H PRN Cough 05/18/22 06/11/22 lisinopril 20 mg tablet 20 mg PO DAILY 05/18/22 06/11/22 loperamide 2 mg tablet 2 mg PO Q6H PRN Diarrhea 05/18/22 06/11/22 polyethylene glycol 3350 17 17 g PO DAILY 05/18/22 06/11/22 gram/dose oral powder (Miralax) magnesium hydroxide 400 mg/5 mL 30 ml PO DAILY PRN Constipation 06/03/22 06/11/22 oral suspension (Milk of Magnesia) nitroglycerin 0.4 mg sublingual 0.4 mg sublingual Q5M PRN Chest 06/03/22 06/11/22 tablet Pain phenytoin sodium extended 100 mg 2 tab PO BID 06/03/22 06/11/22 capsule Previous Rx's Medication Instructions Recorded codeine sulfate 15 mg tablet 15 mg PO Q6H PRN pain #20 tabs 06/04/22 carbidopa 25 mg-levodopa 100 mg 1 tab PO TID 30 days #90 tabs 10/25/22 tablet Allergies Allergy/AdvReac Type Severity Reaction Status Date / Time azithromycin [AZITHROMYCIN] Allergy Unknown HIVES Verified 06/11/22 10:18 Macrolide Antibiotics Allergy Unknown Unknown Verified 06/11/22 10:18 Review of Systems 2 Review of Systems: Yes all other systems are reviewed and are negative [facility] Past Medical History Medical History Atherosclerotic cardiovascular disease Diabetes Fall History of alcohol abuse History of coronary artery disease History of encephalopathy History of traumatic subdural hematoma Hx of fracture of femur Hypertension Myocardial infarct Non-rheumatic aortic stenosis Preoperative cardiovascular examination Seizure disorder Tobacco dependence Surgical History History of hip surgery Family History Family History Mother No problems noted. Father No problems noted. Social History Social History Household Members: Other Housing: Other Housing Other:: [facility] Alcohol intake: former Patient Tobacco Use Status: Current everyday Tobacco user Tobacco use type: Cigarette Cigarette Packs Per Day: 1 Cigarettes Per Day: 20.0 Second Hand Smoke Exposure: No Advance Directives: Yes Advance Directives on File: Yes Advance Directives Date on File: 02/07/21 service: No Current occupational status: disabled Current occupation: [employer] Physical Exam Vital Signs: Vital Signs: Last Vital Signs Temp 97.4 F 12/08/22 23:36 Pulse 76 12/08/22 23:36 Resp 16 12/08/22 23:36 BP 140/71 H 12/08/22 23:36 Pulse Ox 98 12/08/22 23:36 O2 Del Method Room Air 12/08/22 23:36 BMI result Body Mass Index 25.0 Appearance: Alert. Oriented X3. No acute distress. Head: normocephalic, atraumatic. Eyes: Pupils equal, round and reactive to light. ENT: Pharynx normal. No tonsillar swelling or exudate. Neck: Normal inspection. Neck supple. CVS: Normal heart rate and rhythm. Pulses normal. Respiratory: No respiratory distress. Breath sounds normal. Abdomen: Soft and nontender. +BS x4 Skin: Skin warm and dry. Normal skin color. Normal skin turgor. No rashes. Extremities: pelvis is stable, nontender hips. No lower extremity edema. No joint swelling. Scattered ecchymosis of the right forearm. Resting tremor of the right hand. Right upper arm with significant tenderness, swelling and inability to abduct. nontender right elbow and wrist. NV intact distally. Neuro/psych: Oriented X 3. tremor of RUE. mental status appropriate. Course Course Course Narrative: 2100--R shoulder RT min 2V/XR humerus RT IMPRESSION: 1. Comminuted right humeral neck fracture without dislocation. 2. Rest of the right humerus is unremarkable. > sling applied. Patient agreeable to PT/Case Management, unable to care for self at home. Physician observation initiated at 21:04 0230--ED care transferred to Dr. Florez pending PT/case management Medications Administered Discontinued Medications Generic Name Dose Route Start Last Admin Trade Name Freq PRN Reason Stop Dose Admin Acetaminophen 975 mg 12/08/22 17:10 12/08/22 18:09 Acetaminophen 325 Mg Tablet PO 12/08/22 17:11 975 mg ONCE ONE Administration Amlodipine Besylate 5 mg 12/08/22 17:39 12/08/22 18:08 Amlodipine Besylate 5 Mg Tablet PO 12/08/22 17:40 5 mg ONCE ONE Administration Protocol Oxycodone HCl 5 mg 12/08/22 21:22 12/08/22 21:52 Oxycodone Hcl Immed Release 5 Mg Tablet PO 12/08/22 21:23 5 mg ONCE ONE Administration Medical Decision Making Medical Decision Making MDM Narrative: 67 yo female with history of Parkinson's disease, seizure disorder, hx falls, hx right hip fracture s/p pinning 01/2021, hx CAD, aortic stensosis, hx traumatic SDH, HTN, DM who presents to the ER via EMS from the [facility] for evaluation of a mechanical fall on the escalator. In modified c-collar from EMS due to pain in the right shoulder and upper arm. no headache or neck pain on arrival. BP elevated, no chest pain. will treat pain and reassess 18:45 - CT head/c-spine without acute injuries, collar removed. XR shoulder/humerus pending. signed out to Regina FABIAN who will f/u shoulder x-rays Differential Diagnosis Differential Diagnoses: The differential diagnosis associated with the presentation includes concussion without LOC, SDH/ICH, right humerus fracture, AC joint separation, scapular fracture, shoulder sprain Admission/Observation Consideration of admission/observation: Escalation of care including admission/observation considered Independent Interpretation I performed an independent interpretation of an: CT Scan Interpretation: no appreciated ICH/SDU or edema, moderate volume loss. Radiology Impression Discussion of test interpretation with radiology: I have reviewed the radiologist's reading. Radiologist Impression: Indication: Fall, on blood thinners EXAMINATION: CT brain, CT cervical spine. Axial imaging with coronal and sagittal reformatted images. This CT examination was performed using dose optimization techniques as appropriate, variously including the following: *Automated exposure control *Adjustment of mA and/or kV according to patient size (this includes techniques or standardized protocols for targeted exams where dose is matched to indication/reason for exam; i.e. extremities or head) *Use of iterative reconstruction technique. Radiation dose [address] brain; Comparison previous dated 01/04/2018. There is no midline shift. There is no mass effect. There is no hemorrhage here. The basilar cisterns appear patent. The posterior fossa risk grossly within normal limits. No extra-axial collection. Note is made of areas of white matter ischemic change and volume loss ongoing from previous. There is no evidence for fracture on the bone windows. Cervical spine; No acute fracture or dislocation. Thyroid nodularity is noted. Consider ultrasound Carotid calcification CT/CT head/brain wo IV con IMPRESSION: Negative acute noncontrast CT of the brain. Ongoing white matter ischemic change and volume loss is noted. No acute fracture or dislocation of the cervical spine. Other findings are as described above Independent Historian Clinical information obtained from an independent historian. History obtained from or confirmed by: Friend and EMS External Record Review External record reviewed: Inpatient record and Outpatient record Prescription Management I considered prescription management with: Pain Medication Chronic Conditions Patient?s care impacted by: Other (Parkinson's disease) Critical Care Time Critical Care Time Critical Care Time: No Discharge Plan Discharge Clinical Impression: Fracture of neck of humerus Qualifiers: Encounter type: initial encounter Fracture type: closed Laterality: right Qualified Code(s): S42.211A - Unspecified displaced fracture of surgical neck of right humerus, initial encounter for closed fracture Patient Disposition: Still a Patient Instructions: Fall Prevention for Older Adults (ED) Prescriptions: No Action carbidopa-levodopa 25-100 mg tablet 1 tab PO TID 30 Days Qty: 90 3RF Rx Instructions: take w/ a cracker 30 minutes before breakfast, lunch, and dinner fluoxetine 40 mg capsule 1 cap PO DAILY divalproex 250 mg tablet,delayed release (DR/EC) 3 tab PO BID folic acid 1 mg tablet 1 tab PO DAILY pravastatin 20 mg tablet 1 tab PO DAILY cholecalciferol (vitamin D3) [Vitamin D3] 50 mcg (2,000 unit) tablet 1 tab PO DAILY phenytoin sodium extended 100 mg capsule 2 tab PO BID magnesium hydroxide [Milk of Magnesia] 400 mg/5 mL Suspension 30 ml PO DAILY PRN (Reason: Constipation) nitroglycerin 0.4 mg Tablet, Sublingual 0.4 mg SUBLINGUAL Q5M PRN (Reason: Chest Pain) Rx Instructions: do not exceed 3 doses per episode codeine sulfate 15 mg tablet 15 mg PO Q6H MDD 45 mg PRN (Reason: pain) Qty: 20 0RF Rx Instructions: Partial Fill upon patient request. acetaminophen 325 mg capsule 650 mg PO Q4H PRN (Reason: Pain) guaifenesin 100 mg/5 mL liquid 200 mg PO Q4H PRN (Reason: Cough) loperamide 2 mg tablet 2 mg PO Q6H PRN (Reason: Diarrhea) alum-mag hydroxide-simeth [Mintox] 200-200-20 mg/5 mL suspension 30 ml PO DAILY PRN (Reason: Abdominal Discomfort) lisinopril 20 mg tablet 20 mg PO DAILY docusate sodium [Colace] 100 mg capsule 100 mg PO BID polyethylene glycol 3350 [Miralax] 17 gram/dose powder 17 g PO DAILY
[2022-12-08 16:31] VITALS: BP 182/76; BP 199/93; PULSE 71; PULSE 74; RESP 18; TEMP 36.3; O2SAT 96; O2SAT 98; BMI 25.0
[2022-12-08 17:33] VITALS: BP 201/85; PULSE 78; RESP 18; TEMP 36.6; O2SAT 98
[2022-12-08] MEDS: amLODIPine Besylate 5 MG TABLET PO (18:08)
[2022-12-08] MEDS: Acetaminophen 325 MG TABLET 975 MG PO (18:09)
[2022-12-08 18:47] VITALS: BP 191/100; PULSE 74; RESP 16; TEMP 36.8; O2SAT 98
--- NOTE | 2022-12-08 18:55 | MHC.EDTECH ---
patient was assisted unto bed lord ,voided lg amount of urine .
[2022-12-08] MEDS: oxyCODONE HCl Immed Release 5 MG TABLET PO (21:52)
--- NOTE | 2022-12-08 21:54 | MHC.EDTECH ---
patient was slip box changer into hospital attire ,,sling apply to right shoulder ,pt belonings list done ,pt was reposition and boosted up in bed ,warm blanket given .
[2022-12-08 21:55] VITALS: BP 168/88; PULSE 68; RESP 18; TEMP 36; O2SAT 97
[2022-12-08 23:36] VITALS: BP 140/71; PULSE 76; RESP 16; TEMP 36.3; O2SAT 98
--- NOTE | 2022-12-09 02:20 | MHC.EDTECH ---
0200 ROUNDING DONE ,PT AWAKE SAID SHE WAS IN PAIN ,RN PETRA AWARE ,PT FRIEND SLEEPING AT BEDSIDE .
--- NOTE | 2022-12-09 02:27 | PC.NURSE ---
transmission technician notified by EDT in [facility] that the pt is reporting 7/10 pain and is looking for Pain Medication. RN spoke with PAM Tapia and relayed the information and new orders to be received for PRN oxycodone to assist with pain while awaiting PT eval and CM.
[2022-12-09] MEDS: oxyCODONE HCl Immed Release 5 MG TABLET PO ×2 (02:56→19:35)
[2022-12-09 04:37] VITALS: BP 130/62; PULSE 67; RESP 16; TEMP 36.7; O2SAT 96
--- NOTE | 2022-12-09 08:45 | PC.NURSE ---
physical therapy meeting with patient at this time.
[2022-12-09 12:24] VITALS: BP 149/76; PULSE 73; RESP 18; O2SAT 97
--- NOTE | 2022-12-09 14:08 | PC.NURSE ---
Patient given lunch turkey club wrap and apple juice and milk set up tray was able to feed herself.
--- NOTE | 2022-12-09 19:11 | PHA.MEDREC ---
Pharmacy Consult ? Medication Reconciliation Pharmacy has completed the medication reconciliation. Patient came from [facility], contacted them for medications list. Michela Patel, [employer]
[2022-12-10 06:00] VITALS: BP 199/99; PULSE 78; RESP 18; TEMP 36.8; O2SAT 99
[2022-12-10] MEDS: oxyCODONE HCl Immed Release 5 MG TABLET PO ×2 (06:39→13:35)
[2022-12-10 07:56] VITALS: BP 175/80; PULSE 73; RESP 19; TEMP 36.4; O2SAT 96
--- NOTE | 2022-12-10 09:41 | P.CONOP_ITS ---
History of Present Illness HPI Consult date: 12/10/22 Chief complaint: Fall/trip on escalator. R shoulder pain Narrative: 67 yo female with history of Parkinson's disease, seizure disorder, hx falls, hx right hip fracture s/p pinning 01/2021, hx CAD, aortic stensosis, hx traumatic SDH, HTN, DM who was transferred to the ER via EMS from the [facility] for evaluation of a mechanical fall on the escalator. She missed the step and fell onto her right side injuring her right arm and shoulder. While in the ED, xrays were obtained which show a right proximal humerus fracture. She was placed in a sling and is awaiting rehab placement. Orthopedics was consulted for further recommendations. Review of Systems Review of Systems: per [facility] Past Medical History Medical History Atherosclerotic cardiovascular disease Diabetes Fall History of alcohol abuse History of coronary artery disease History of encephalopathy History of traumatic subdural hematoma Hx of fracture of femur Hypertension Myocardial infarct Non-rheumatic aortic stenosis Preoperative cardiovascular examination Seizure disorder Tobacco dependence Family History Family History Mother No problems noted. Father No problems noted. 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 [employer] Meds Allergies Allergy/AdvReac Type Severity Reaction Status Date / Time azithromycin [AZITHROMYCIN] Allergy Unknown HIVES Verified 06/11/22 10:18 Macrolide Antibiotics Allergy Unknown Unknown Verified 06/11/22 10:18 Active Medications: Current Medications Oxycodone HCl (Oxycodone Hcl Immed Release 5 Mg Tablet) 5 mg PO Q6H PRN PRN Reason: Pain, Severe (Pain Scale 7-10) Last Admin: 12/10/22 06:39 Dose: 5 mg Home Medications Medication Instructions Recorded Confirmed Last Taken Type divalproex 250 mg tablet,delayed 3 tab PO BID 01/26/21 12/09/22 12/09/22 History release fluoxetine 40 mg capsule 1 cap PO DAILY 01/26/21 12/09/22 12/09/22 History folic acid 1 mg tablet 1 tab PO DAILY 01/26/21 12/09/22 12/09/22 History pravastatin 20 mg tablet 1 tab PO DAILY 01/26/21 12/09/22 12/09/22 History acetaminophen 325 mg capsule 650 mg PO Q4H PRN Pain 05/18/22 12/09/22 Unknown History aluminum-mag hydroxide-simethicone 30 ml PO DAILY PRN Abdominal 05/18/22 Unknown History 200 mg-200 mg-20 mg/5 mL oral susp Discomfort (Mintox) guaifenesin 100 mg/5 mL oral liquid 200 mg PO Q4H PRN Cough 05/18/22 12/09/22 Unknown History loperamide 2 mg tablet 2 mg PO 8XD PRN Loose Stool 05/18/22 12/09/22 Unknown History polyethylene glycol 3350 17 17 g PO DAILY 05/18/22 12/09/22 12/09/22 History gram/dose oral powder (Miralax) magnesium hydroxide 400 mg/5 mL 30 ml PO DAILY PRN Constipation 06/03/22 12/09/22 Unknown History oral suspension (Milk of Magnesia) nitroglycerin 0.4 mg sublingual 0.4 mg sublingual Q5M PRN Chest 06/03/22 12/09/22 Unknown History tablet Pain phenytoin sodium extended 100 mg 2 tab PO BID 06/03/22 12/09/22 12/09/22 History capsule amantadine HCl 100 mg tablet 100 mg PO DAILY 12/09/22 12/09/22 12/09/22 History cholecalciferol (vitamin D3) 1,250 1,250 mcg PO QMONTH 12/09/22 12/09/22 Unknown History mcg (50,000 unit) tablet lisinopril 30 mg tablet 30 mg PO DAILY 12/09/22 12/09/22 12/09/22 History Physical Exam Vital Signs: Vital Signs: Last Vital Signs Temp 97.5 F 12/10/22 07:56 Pulse 73 12/10/22 07:56 Resp 19 12/10/22 07:56 BP 175/80 H 12/10/22 07:56 Pulse Ox 96 12/10/22 07:56 O2 Del Method Room Air 12/10/22 07:56 BMI result Body Mass Index 25.0 Const: General: cooperative, healthy appearing, comfortable and no acute distress Extrem: Other: Right shoulder normal to inspection. Mild Swelling and tenderness over the proximal humerus. Anterior deltoid sensation intact. Elbow and wrist ROM intact. NVI. Results Labs Labs: All other labs normal. Diagnostic results Shoulder x-ray: image reviewed (IMPRESSION: 1. Comminuted right humeral neck fracture without dislocation. ) Assessment and Plan (1) Fracture of neck of humerus: Qualifiers: Encounter type: initial encounter Fracture type: closed Laterality: right Qualified Code(s): S42.211A - Unspecified displaced fracture of surgical neck of right humerus, initial encounter for closed fracture Status: Acute Plan Right proximal humerus fracture -sling for comfort -elbow and wrist ROM ok -no lifting No surgical intervention required at this time -follow up with orthopedics in 4 weeks for routine xrays Time Spent With Patient Time: Total time managing care of this patient today ____ minutes. Procedures Date of Service Date of Service: 12/10/22
--- NOTE | 2022-12-10 10:11 | PC.NURSE ---
Patient confused to date/place/person. [employer] sister at bedside. Pt OOB with 2 assist to bedside chair. Tolerating change of position well. Calm and cooperative at present but needs occasional redirection. Camera for safety in place. Bed and chair alarm on At 100% of breakfast. NAD. Will continue to monitor.
--- NOTE | 2022-12-10 12:21 | MHC.CM.PN ---
PT IS A RESIDENT OF MELISSA GANDHI WHO PRESENTED AFTER A FALL FOR PLACEMENT [facility] IS OFFERING PT A BED SHE IS ACCEPTING THE BED OFFER AND [facility] 1400 HOURS TODAY
== END 2022-12-10 15:06 | disposition other institution (70) ==
PROVIDERS: Emergency Provider Emergency Medicine; PCP Internal Medicine
DX: S42.211A Unspecified displaced fracture of surgical neck of right humerus, initial encounter for closed fracture (principal); S40.811A Abrasion of right upper arm, initial encounter; M25.511 Pain in right shoulder; M25.551 Pain in right hip; M79.601 Pain in right arm; R26.2 Difficulty in walking, not elsewhere classified; R51.9 Headache, unspecified; M54.2 Cervicalgia; F17.210 Nicotine dependence, cigarettes, uncomplicated; I25.10 Atherosclerotic heart disease of native coronary artery without angina pectoris; W10.0XXA Fall (on)(from) escalator, initial encounter; Y93.9 Activity, unspecified; Y92.59 Other trade areas as the place of occurrence of the external cause; Y99.9 Unspecified external cause status; Z91.81 History of falling; Z71.6 Tobacco abuse counseling; Z79.899 Other long term (current) 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
CPT/HCPCS: 70450; 72125; 73030; 73060; 97162; 99285

== ENCOUNTER → 2022-12-08 17:09 | Outpatient (BNV) | payer MEDICARE, MEDICAID, SELFPAY | PROVIDERS: Emergency Provider Emergency Medicine; PCP Internal Medicine; Visit Provider Physician Assistant | DX: S42.211A Unspecified displaced fracture of surgical neck of right humerus, initial encounter for closed fracture (principal) | CPT/HCPCS: 99282 ==

== ENCOUNTER 2023-01-19 11:22 | Outpatient (AMB) | payer MEDICARE, MEDICAID, SELFPAY ==
--- NOTE | 2023-01-19 11:24 | MHC.OFFVIS ---
Intake Vital Signs 01/19/23 11:38 Weight 146 lb BP 142/80 H Blood Pressure Location Rt brachial Position Sitting Intake Visit Reasons: f/u appt-LVM Intake Note: Patient presents for follow up. Patient states I still have the shakes. Allergies azithromycin [AZITHROMYCIN] Allergy (Unknown, Verified 01/19/23 11:38) HIVES Macrolide Antibiotics Allergy (Unknown, Verified 01/19/23 11:38) Unknown Medication List - Last Reconciled 01/19/23 by AMERICA Hobbs acetaminophen 650 mg PO Q4H PRN alum-mag hydroxide-simeth 200-200-20 mg/5 mL (Mintox) 30 mL PO DAILY PRN amantadine HCl 100 mg PO DAILY carbidopa-levodopa 25-100 mg 1 tab PO TID 30 days cholecalciferol (vitamin D3) 1,250 mcg PO QMONTH divalproex 3 tabs PO BID fluoxetine 1 cap PO DAILY folic acid 1 tab PO DAILY guaifenesin 200 mg PO Q4H PRN lisinopril 30 mg PO DAILY loperamide 2 mg PO 8XD PRN magnesium hydroxide (Milk of Magnesia) 30 mL PO DAILY PRN nitroglycerin 0.4 mg sublingual Q5M PRN phenytoin sodium extended 2 tabs PO BID polyethylene glycol 3350 (Miralax) 17 grams PO DAILY pravastatin 1 tab PO DAILY HPI HPI Comments History of Present Illness Details 67-yr-old female presents for f/u visit. Pt arrives alone, brings paperwork from restroom- note provided incluses- CD-LD was increased after the last visit d/t tremor and Amantadine was added, and ? if pt can resume ASA. Pt reports the following interval medical history changes: About a month ago, she fell down from the escalator at the [employer] [place]- sustained a right arm fx. Pt is being f/b [facility]- states was just cleared to stop using the arm brace- unless she goes out. Seeing PT. Denies any interval seizures. Pt's current PD medication regimen: CD-LD 25-100mg 1 tab tid, Amantadine 100mg qam. ADL's: Ind Swallowing: No issues Drooling: None Orthostatic lightheadedness: None Constipation: At times- while on pain meds for her arm Freezing: None Stiffness: None Tremor: BUE R > L tremor- CD-LD does not seem to help Falls: No other falls Hallucinations: None Memory: Is overall good Sleep: Generally does not sleep at night, but sleeps into the morning Exercise: Doing her arm exercises, walking regularly Other- she is concenred about easy bruising/red carmona [facility], [facility] Medical History Atherosclerotic cardiovascular disease Diabetes Fall History of alcohol abuse History of coronary artery disease History of encephalopathy History of traumatic subdural hematoma Hx of fracture of femur Hypertension Myocardial infarct Non-rheumatic aortic stenosis Preoperative cardiovascular examination Seizure disorder Tobacco dependence Surgical History History of hip surgery Family History Mother No problems noted. Father No problems noted. 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 Gait: Slow to stand, No right arm swing with tremor and right hand posturing in flexed position, short shuffling steps. Psych: Pleasant affect. Assessment & Plan Assessment & Plan (1) Parkinson's disease: Code(s): G20 - Parkinson's disease (2) Seizure disorder: Code(s): G40.909 - Epilepsy, unspecified, not intractable, without status epilepticus (3) Anemia: Code(s): D64.9 - Anemia, unspecified Plan For PD Increase CD-LD 25-100mg from 1 tab tid to 1.5 tabs tid. Continue Amantadine 100mg qd Continue working w/ PT- ordered for RUE fx. ? For seizure: Continue Phenytoin 200mg bid Continue Depakote 750mg bid Check CBC, CMP, phenytoin, depakote level Will also check b-12, folate- previous labs from Mar 2022 showed anemia ? ?f/u in 3 months, or sooner with any new/worsening s/s. Orders: Orders Valproate Today D64.9 - Anemia, unspecified, R56.9 - Unspecified convulsions Vitamin B12 and Folate Today D64.9 - Anemia, unspecified Complete Blood Count Auto Diff Today D64.9 - Anemia, unspecified, R56.9 - Unspecified convulsions Comprehensive Met. Panel Today D64.9 - Anemia, unspecified, R56.9 - Unspecified convulsions Phenytoin Dilantin Today D64.9 - Anemia, unspecified, R56.9 - Unspecified convulsions Folate Today D64.9 - Anemia, unspecified Medications: Changed From carbidopa-levodopa 25-100 mg take w/ a cracker 30 minutes before breakfast, lunch, and dinner 1 tab PO TID 30 days 90 tabs 3RF To carbidopa-levodopa 25-100 mg take w/ a cracker 30 minutes before breakfast, lunch, and dinner 1.5 tabs PO TID 30 days 135 tabs 3RF Coding Level of Care Code Est Pt Level 4 (19950) Diagnoses Parkinson's disease G20 Seizure disorder G40.909 Anemia D64.9
[2023-01-19 11:38] VITALS: BP 142/80
== END 2023-01-19 12:27 | disposition home or self-care (01) ==
PROVIDERS: PCP Internal Medicine; Visit Provider Nurse Practitioner Family
DX: G20.A1 Parkinson's disease without dyskinesia, without mention of fluctuations (principal); G40.909 Epilepsy, unspecified, not intractable, without status epilepticus; D64.9 Anemia, unspecified
CPT/HCPCS: 99214

== ENCOUNTER → 2023-01-19 11:22 | Outpatient (BNVA) | payer MEDICARE, MEDICAID, SELFPAY | PROVIDERS: PCP Internal Medicine; Visit Provider Nurse Practitioner Family | DX: G20.A1 Parkinson's disease without dyskinesia, without mention of fluctuations (principal); G40.909 Epilepsy, unspecified, not intractable, without status epilepticus; D64.9 Anemia, unspecified; Z79.899 Other long term (current) 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 | CPT/HCPCS: 99212 ==

== ENCOUNTER 2023-04-29 11:49 | Outpatient (AMB) | payer MEDICARE, MEDICAID, SELFPAY ==
[2023-04-29 11:49] VITALS: PULSE 80; O2SAT 98; BMI 25.1
--- NOTE | 2023-04-29 11:49 | MHC.OFFVIS ---
Intake Vital Signs 04/29/23 11:49 Height 5 ft 4 in Weight 146 lb BMI 25.1 Pulse 80 Pulse Source Pulse Oximeter Pulse Oximetry (%) 98 Oxygen Delivery Method Room Air Intake Visit Reasons: 3M follow up-LVM Intake Note: Patient presents for 3 month follow up. the medication she gave me, is not helping Allergies azithromycin [AZITHROMYCIN] Allergy (Unknown, Verified 04/29/23 11:51) HIVES Macrolide Antibiotics Allergy (Unknown, Verified 04/29/23 11:51) Unknown HPI HPI Comments History of Present Illness Details 67-yr-old female presents for f/u visit. Pt denies any significant interval medical history changes. No interval seizures. Pt's current PD medication regimen: CD-LD 25-100mg 1.5 tab tid, Amantadine 100mg qam. Pt states that she does not feel her meds are helping her tremor. She recently spilled coffee on her hand. ADL's: Ind Swallowing: No issues Drooling: None Orthostatic lightheadedness: None Constipation: Yes- pt states she is taking senna, ? colace, and pepto-bismol. Freezing: None Stiffness: None Tremor: BUE R > L tremor. Falls: No interval falls. Hallucinations: None Memory: Is overall good. Some word finding difficulties. Sleep: States their is nothing else do to do but sleep. Exercise: Walking regularly [facility] Medical History (Updated 05/01/23 @ 20:52 by AMERICA Hobbs) Parkinson's disease Hx of fracture of femur History of alcohol abuse Diabetes History of encephalopathy History of traumatic subdural hematoma Tobacco dependence Atherosclerotic cardiovascular disease Non-rheumatic aortic stenosis Preoperative cardiovascular examination Myocardial infarct History of coronary artery disease Seizure disorder Hypertension Fall Surgical History History of hip surgery Family History Mother No problems noted. Father No problems noted. 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 Review of Systems Const All systems reviewed & are unremarkable except as noted in HPI and below Physical Exam Vital Signs: Last Vital Signs Pulse 80 04/29/23 11:49 Pulse Ox 98 04/29/23 11:49 Oxygen Delivery Method Room Air 04/29/23 11:49 BMI result Body Mass Index 25.1 Const General: cooperative and no acute distress Resp Effort & Inspection: normal respiratory effort and able to speak in complete sentences Neuro Other: General: A&O x's 3 Expression: Decreased blink Voice: Intact Tremor: RUE rest and BUE postural tremor Tone: RUE tone Dyskinesia: None FFM: Decreased on right Foot taps: Slightly decreased- milan, induces spread of movement into right hand. Gait: Slow to stand, No right arm swing with tremor and right hand posturing in flexed position, short steps w/ low floor clearance. Psych: Pleasant affect. Results Reviewed Results Reviewed: 01/19/23 12:42 WBC 4.2 RBC 3.39 Hgb 11.4 Hct 35.9 MCV 105.9 MCH 33.6 MCHC 31.8 Platelet Count 211 RDW-SD 56.8 MPV 10.5 Nucleated RBC (Automated) 0.0 CHEMISTRY Sodium 143 Potassium 4.2 Chloride 105 Bicarbonate Level 29 Anion Gap 9 Glucose Level 85 BUN 23 Creatinine-Blood 0.8 Estimated GFR Creatinine 78 Calcium 9.1 Protein, Total 6.2 Albumin 4.3 AG Ratio 2.3 Alkaline Phosphatase?138 AST (SGOT) 14 ALT (SGPT) 7 Bilirubin, Total 0.2 Vitamin B12 324 Folic Acid Level 25.1 Dilantin Level 13.8 Valproic Level 28.9 L Assessment & Plan Assessment & Plan (1) Parkinson's disease without dyskinesia: Comment: Positive DaTscan, in setting of Depakote use, h/o alcohol abuse. Code(s): G20.A1 - Parkinson's disease without dyskinesia, without mention of fluctuations (2) Seizure disorder: Code(s): G40.909 - Epilepsy, unspecified, not intractable, without status epilepticus Plan For PD: Discussed reasonable expectations of medications to decrease tremor. Amantadine may be more effective for tremor, however, would not increase at this time as pt already has c/o constipation. Increase CD-LD 25-100mg from 1.5 tabs tid to 1.5 tabs qid Continue Amantadine 100mg qd Add Miralax 17gm qd in 6-80z fluid of choice- for constipation. Use covered coffee cups for all hot beverages. For seizure: Reviewed 01/19/23 labs- phenytoin 13.8 NL, Valproic Level 28.9 L, mild anemia No interval seizure activity. Continue Phenytoin 200mg bid Continue Depakote 750mg bid Recheck CBC, CMP, Phenytoin, Depakote. Check B-12, folate, MMA, homocystien, HgA1c. ? ?f/u in 3 months, or sooner with any new/worsening s/s. Orders: Orders Homocysteine 04/29/23 D64.9 - Anemia, unspecified, G20.A1 - Parkinson's disease without dyskinesia, without mention of fluctuations, G40.909 - Epilepsy, unspecified, not intractable, without status epilepticus, R25.1 - Tremor, unspecified Methylmalonic Acid 04/29/23 D64.9 - Anemia, unspecified, G20.A1 - Parkinson's disease without dyskinesia, without mention of fluctuations, G40.909 - Epilepsy, unspecified, not intractable, without status epilepticus, R25.1 - Tremor, unspecified Hemoglobin A1c 04/29/23 D64.9 - Anemia, unspecified, G20.A1 - Parkinson's disease without dyskinesia, without mention of fluctuations, G40.909 - Epilepsy, unspecified, not intractable, without status epilepticus, R25.1 - Tremor, unspecified Medications: Changed From carbidopa-levodopa 25-100 mg take w/ a cracker 30 minutes before breakfast, lunch, and dinner 1.5 tabs PO TID 30 days 135 tabs 3RF To carbidopa-levodopa 25-100 mg take w/ a cracker 30 minutes before breakfast, lunch, dinner, and at bedtime 1.5 tabs PO QID 30 days 180 tabs 3RF From polyethylene glycol 3350 (Miralax) 17 grams PO DAILY To polyethylene glycol 3350 (Miralax) 17 grams PO DAILY 30 days 510 grams 6RF Coding Level of Care Code Est Pt Level 4 (55078) Diagnoses Parkinson's disease without dyskinesia G20.A1 Seizure disorder G40.909
== END 2023-04-29 12:32 | disposition home or self-care (01) ==
PROVIDERS: PCP Internal Medicine; Visit Provider Nurse Practitioner Family
DX: G20.A1 Parkinson's disease without dyskinesia, without mention of fluctuations (principal); G40.909 Epilepsy, unspecified, not intractable, without status epilepticus
CPT/HCPCS: 99214

== ENCOUNTER → 2023-04-29 11:49 | Outpatient (BNVA) | payer MEDICARE, MEDICAID, SELFPAY | PROVIDERS: PCP Internal Medicine; Visit Provider Nurse Practitioner Family | DX: G20.A1 Parkinson's disease without dyskinesia, without mention of fluctuations (principal); G40.909 Epilepsy, unspecified, not intractable, without status epilepticus | CPT/HCPCS: 99212 ==

== ENCOUNTER 2023-07-26 18:41 | Emergency (ER) | payer MEDICARE, MEDICAID, SELFPAY ==
--- NOTE | ~2023-07-26 | XR_ITS ---
EXAMINATION: XR CLAVICLE, RIGHT CLINICAL INFORMATION: Pain status-post fall. COMPARISON: Right shoulder radiographs dated 12/08/2022. TECHNIQUE: Straight AP and cephalad angulated AP views of the right clavicle. FINDINGS: There is a displaced, mildly comminuted fracture of the distal third of the right clavicle. This shows one shaft width of inferior displacement of the distal fracture fragment and approximately 2 cm of overriding of fracture fragments. The glenohumeral joint is intact. The acromioclavicular and coracoclavicular intervals are normal. There is mild osteoarthritis of the right acromioclavicular joint. There is an old, healed fracture of the surgical neck of the proximal right humerus. There is no soft tissue calcification. No right pneumothorax is seen. XR/XR clavicle RT IMPRESSION: A displaced fracture seen of the distal third right clavicle. There is no right pneumothorax.
[2023-07-26 18:52] VITALS: BP 160/72; BP 165/82; PULSE 75; PULSE 81; RESP 16; TEMP 36.8; O2SAT 97; BMI 25.7
--- NOTE | 2023-07-26 19:50 | ED.FALL ---
HPI - Fall General Chief Complaint: Fall Stated Complaint: FALL,12/28 R COLLAR BONE PAIN Time Seen by Provider: 07/26/23 18:52 Source: patient Mode of arrival: EMS Limitations: no limitations History of Present Illness HPI Narrative: Patient is a 67-year-old female who presents emergency department via EMS. She reportedly resides at [facility], she was with a friend today going grocery shopping and had a mechanical fall while getting off the bus. She reports that the bus part ?too far from the curb? resulting in her tripping and landing on her right side. She denies any head strike or loss of consciousness. She does not believe she is on any blood thinning medications. She reports a history of fracture to the right humerus in November of 2022 which healed on its own without surgical intervention. Currently she has pain over the top of the right shoulder which is made worse with movement of the right arm. She denies any numbness or tingling. She denies any headache, dizziness, lightheadedness, midline cervical spine pain, chest pain. Related Data Home Medications ?Medication ?Instructions ?Recorded ?Confirmed divalproex 250 mg tablet,delayed 3 tab PO BID 01/26/21 01/19/23 release fluoxetine 40 mg capsule 1 cap PO DAILY 01/26/21 01/19/23 folic acid 1 mg tablet 1 tab PO DAILY 01/26/21 01/19/23 pravastatin 20 mg tablet 1 tab PO DAILY 01/26/21 01/19/23 acetaminophen 325 mg capsule 650 mg PO Q4H PRN Pain 05/18/22 01/19/23 aluminum-mag hydroxide-simethicone 30 ml PO DAILY PRN Abdominal 05/18/22 01/19/23 200 mg-200 mg-20 mg/5 mL oral susp Discomfort (Mintox) guaifenesin 100 mg/5 mL oral liquid 200 mg PO Q4H PRN Cough 05/18/22 01/19/23 loperamide 2 mg tablet 2 mg PO 8XD PRN Loose Stool 05/18/22 01/19/23 magnesium hydroxide 400 mg/5 mL 30 ml PO DAILY PRN Constipation 06/03/22 01/19/23 oral suspension (Milk of Magnesia) nitroglycerin 0.4 mg sublingual 0.4 mg sublingual Q5M PRN Chest 06/03/22 01/19/23 tablet Pain phenytoin sodium extended 100 mg 2 tab PO BID 06/03/22 01/19/23 capsule amantadine HCl 100 mg tablet 100 mg PO DAILY 12/09/22 01/19/23 cholecalciferol (vitamin D3) 1,250 1,250 mcg PO QMONTH 12/09/22 01/19/23 mcg (50,000 unit) tablet lisinopril 30 mg tablet 30 mg PO DAILY 12/09/22 01/19/23 Previous Rx's ?Medication ?Instructions ?Recorded mecobalamin (vitamin B12) 500 mcg 500 mcg PO .COMPLEX 30 days #30 01/21/23 chewable tablet tabs carbidopa 25 mg-levodopa 100 mg 1.5 tab PO QID 30 days #180 tabs 04/29/23 tablet polyethylene glycol 3350 17 17 g PO DAILY 30 days #510 grams 04/29/23 gram/dose oral powder (Miralax) Allergies Allergy/AdvReac Type Severity Reaction Status Date / Time azithromycin [AZITHROMYCIN] Allergy Unknown HIVES Verified 07/26/23 18:53 Macrolide Antibiotics Allergy Unknown Unknown Verified 07/26/23 18:53 Review of Systems Review of Systems: Yes all other systems are reviewed and are negative PMFSH Past Medical History Attestation statement: The following information was validated with the patient. Source: old records reviewed Medical History Parkinson's disease Hx of fracture of femur History of alcohol abuse Diabetes History of encephalopathy History of traumatic subdural hematoma Tobacco dependence Atherosclerotic cardiovascular disease Non-rheumatic aortic stenosis Preoperative cardiovascular examination Myocardial infarct History of coronary artery disease Seizure disorder Hypertension Fall Surgical History History of hip surgery Family History Family History Mother No problems noted. Father No problems noted. 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 No acute distress.?Normal affect. Head: Normocephalic, atraumatic Eyes: Pupils equal, round and reactive to light.? EOMI. No nystagmus. ENT: Pharynx normal.??Dentition normal. Neck: Normal inspection.? Neck supple.??No midline cervical spine tenderness, step-offs, deformities. Palpable tenderness along the right trapezius CVS: Heart sounds normal. Normal heart rate and rhythm.? Pulses normal.?? Respiratory: No respiratory distress.? Lung sounds clear to auscultation bilaterally?? Abdomen: Soft and non-tender. Normoactive bowel sounds. ? Skin: Skin warm and dry.? Normal skin color.? ? Extremities: No lower extremity edema.? 2+ radial pulse bilaterally. Patient able to range right shoulder through all motion, though has limited overhead extension greater than 90 degrees. No palpable deformities or step-offs. Neuro: Moves all extremities spontaneously. Sensation intact bilaterally. CN II-XII intact. No focal neuro deficits. Ambulates with normal steady gait. Medications Administered Discontinued Medications Generic Name Dose Route Start Last Admin Trade Name Freq PRN Reason Stop Dose Admin Acetaminophen 975 mg 07/26/23 19:25 07/26/23 19:51 Acetaminophen 325 Mg Tablet PO 07/26/23 19:26 975 mg ONCE ONE Administration Medical Decision Making Medical Decision Making MDM Narrative: Patient is a 67-year-old female past medical history of Parkinson's, diabetes, ASCVD, myocardial infarction, seizure disorder, hypertension, traumatic subdural presenting to emergency department for evaluation of right shoulder pain after mechanical fall. Overall she is well-appearing, nontoxic, afebrile. She has no focal neurological deficits. Clinically have low suspicion for ICH, SDH, fracture the skull or cervical spine/subluxation. She does have tenderness upon the right trapezius muscle, she is able to range the right shoulder very well with decreased AROM with overhead extension. The right upper extremities neurovascularly intact distally. Plan to obtain XR to exclude clavicular fracture due to area of tenderness to evaluate for fracture, no obvious deformity or tenting of the skin is noted, I also I suspect that pain may be muscular in nature as well as she has notable tenderness and spasming to the trapezius. Pain management with acetaminophen. XR revealing midclavicular shaft fracture, currently hemodynamically stable, no signs of internal injury, lung sounds are clear bilaterally, no tenting of the skin open wound. no evidence of pneumothorax. Differential Diagnosis Differential Diagnoses: The differential diagnosis associated with the presentation includes (As noted above) Independent Interpretation I performed an independent interpretation of an: Plain X-Ray (Right clavicular shaft fracture) Radiology Impression Discussion of test interpretation with radiology: I have reviewed the radiologist's reading. Radiologist Impression: FINDINGS: There is a displaced, mildly comminuted fracture of the distal third of the right clavicle. This shows one shaft width of inferior displacement of the distal fracture fragment and approximately 2 cm of overriding of fracture fragments. The glenohumeral joint is intact. The acromioclavicular and coracoclavicular intervals are normal. There is mild osteoarthritis of the right acromioclavicular joint. There is an old, healed fracture of the surgical neck of the proximal right humerus. There is no soft tissue calcification. No right pneumothorax is seen. XR/XR clavicle RT IMPRESSION: A displaced fracture seen of the distal third right clavicle. There is no right pneumothorax. Independent Historian Clinical information obtained from an independent historian. History obtained from or confirmed by: EMS External Record Review External record reviewed: Outpatient record Prescription Management I considered prescription management with: Pain Medication (Acetaminophen) Discharge Plan Discharge Clinical Impression: Clavicle fracture, shaft Patient Disposition: Home, Self-Care Instructions: Clavicle Fracture (ED) Additional Instructions: Your x-ray today shows a fracture to your clavicle, collar bone on the right side. Please wear the sling at all times until you are evaluated by orthopedics. Please call their office 1st thing tomorrow morning to arrange for a follow-up visit. You can take in addition to Tylenol 500 mg, 2 tablets (1,000mg) every 4-6 hours as needed for pain, but not to exceed 3 doses daily (3,000mg).? Apply ice to the area for 10-15 minutes 3-4 times daily. You should return back to emergency department for severe worsening pain, shortness of breath, difficulty breathing, dizziness, lightheadedness, numbness tingling or decreased sensation to the arm. Prescriptions: No Action mecobalamin (vitamin B12) 500 mcg tablet,chewable 500 mcg PO .COMPLEX 30 Days Qty: 30 6RF Rx Instructions: 500 mcg orally daily; fluoxetine 40 mg capsule 1 cap PO DAILY divalproex 250 mg tablet,delayed release (DR/EC) 3 tab PO BID folic acid 1 mg tablet 1 tab PO DAILY pravastatin 20 mg tablet 1 tab PO DAILY phenytoin sodium extended 100 mg capsule 2 tab PO BID magnesium hydroxide [Milk of Magnesia] 400 mg/5 mL Suspension 30 ml PO DAILY PRN (Reason: Constipation) nitroglycerin 0.4 mg Tablet, Sublingual 0.4 mg SUBLINGUAL Q5M PRN (Reason: Chest Pain) Rx Instructions: do not exceed 3 doses per episode amantadine HCl 100 mg tablet 100 mg PO DAILY lisinopril 30 mg tablet 30 mg PO DAILY cholecalciferol (vitamin D3) 1,250 mcg (50,000 unit) Tablet 1,250 mcg PO QMONTH acetaminophen 325 mg capsule 650 mg PO Q4H PRN (Reason: Pain) guaifenesin 100 mg/5 mL liquid 200 mg PO Q4H PRN (Reason: Cough) loperamide 2 mg tablet 2 mg PO 8XD PRN (Reason: Loose Stool) alum-mag hydroxide-simeth [Mintox] 200-200-20 mg/5 mL suspension 30 ml PO DAILY PRN (Reason: Abdominal Discomfort) carbidopa-levodopa 25-100 mg tablet 1.5 tab PO QID 30 Days Qty: 180 3RF Rx Instructions: take w/ a cracker 30 minutes before breakfast, lunch, dinner, and at bedtime polyethylene glycol 3350 [Miralax] 17 gram/dose powder 17 g PO DAILY 30 Days Qty: 510 6RF Referrals: Inge Ritter PA-C [Physician Sales Service Manager] - (Closed Displaced mildly comminuted right clavicular shaft fracture. No tenting or glenoid neck fracture.) Print Language: Amharic
[2023-07-26] MEDS: Acetaminophen 325 MG TABLET 975 MG PO (19:51)
[2023-07-26 22:39] VITALS: BP 159/74; PULSE 68; RESP 18; TEMP 37.1; O2SAT 96
[2023-07-26 23:19] VITALS: BP 159/74; PULSE 68; RESP 18; TEMP 37.1; O2SAT 96
== END 2023-07-26 23:20 | disposition home or self-care (01) ==
PROVIDERS: Emergency Provider Emergency Medicine
DX: S42.021A Displaced fracture of shaft of right clavicle, initial encounter for closed fracture (principal); I10 Essential (primary) hypertension; E11.9 Type 2 diabetes mellitus without complications; G20.A1 Parkinson's disease without dyskinesia, without mention of fluctuations; G40.909 Epilepsy, unspecified, not intractable, without status epilepticus; W01.0XXA Fall on same level from slipping, tripping and stumbling without subsequent striking against object, initial encounter; Y93.9 Activity, unspecified; Y92.811 Bus as the place of occurrence of the external cause; Y99.9 Unspecified external cause status
CPT/HCPCS: 73000; 99283; 99284

== ENCOUNTER 2023-07-28 10:25 | Outpatient (AMB) | payer OTHER, SELFPAY ==
--- NOTE | 2023-07-28 10:32 | MHC.OFFVIS ---
Vital Signs 07/28/23 10:46 Height 5 ft 5 in Weight 151 lb 6 oz BMI 25.2 BP 145/70 H Blood Pressure Location Lt brachial Position Sitting Pulse 73 Pulse Source Pulse Oximeter Pulse Oximetry (%) 97 Oxygen Delivery Method Room Air Intake Visit Reasons: 3 month FU-LVM Intake Note: Patient presents for 3 months f/u. Medication for shakes are not working. Shaking of her hands are getting worse and can't hold a cup or write anything. Eating is becoming difficult. Allergies azithromycin [AZITHROMYCIN] Allergy (Unknown, Verified 07/28/23 10:41) HIVES Macrolide Antibiotics Allergy (Unknown, Verified 07/28/23 10:41) Unknown HPI Comments Details: Right-handed 67-yr-old female presents for f/u visit. Pt reports the following interval medical history changes: Pt sustained a right clavicle fracture on 07/26/23- fell as she was stepping out of a [employer] [place] while holding grocery bags. She was seen at [facility] ER. Has f/u ortho consyult on 08/01/23. Using Tylenol ES 500mg- 2 tabs prn, whcih is helpful. Pt's primary concerns are: Tremor is more bothersome. Pt's current PD medication regimen: CD-LD 25-100mg 1.5 tabs TID and Amantadine 100mg qam. Do medication effects last between doses: yes Do you notice your medications wearing off or kicking in: no 05/03/23- Labs, Folate > 20, vit B12 653, H&H 114 & 34.8, valproic acid 36 L, phenytoin 12.2 NL. MMA level 0.14 NL. Denies interval seizure activity. ADL's: Ind Swallowing: No issues Drooling: None. Has dry mouth. Orthostatic lightheadedness: None Constipation: Yes- pt states she is taking senna, which she states is not helping- having a BM every 5-7 days. She states she does not take her Miralax daily. s/s: No issues Freezing: None Stiffness: None Tremor: BUE R > L tremor. Falls: No interval falls. Hallucinations: None Mood: Not bad. Memory: Is overall good. Some word finding difficulties or forgetfulness. Sleep: States their is nothing else do to do but sleep. Exercise: Walking regularly- to go outside to smoke. [facility] Medical History Parkinson's disease Hx of fracture of femur History of alcohol abuse Diabetes History of encephalopathy History of traumatic subdural hematoma Tobacco dependence Atherosclerotic cardiovascular disease Non-rheumatic aortic stenosis Preoperative cardiovascular examination Myocardial infarct History of coronary artery disease Seizure disorder Hypertension Fall Surgical History History of hip surgery Family History Mother No problems noted. Father No problems noted. Social History Household Members: Other Housing: Other Housing Other:: [facility] Alcohol intake: former Patient Tobacco Use Status: Current everyday Tobacco user Tobacco use type: Cigarette Cigarette Packs Per Day: 1 Cigarettes Per Day: 20.0 Second Hand Smoke Exposure: No Advance Directives Date on File: 01/26/21 service: No Current occupational status: disabled Current occupation: [employer] Review of Systems Const All systems reviewed & are unremarkable except as noted in HPI and below Physical Exam Vital Signs: Last Vital Signs Pulse 73 07/28/23 10:46 BP 145/70 H 07/28/23 10:46 Pulse Ox 97 07/28/23 10:46 Oxygen Delivery Method Room Air 07/28/23 10:46 BMI result Body Mass Index 25.2 Const General: cooperative and no acute distress Resp Effort & Inspection: normal respiratory effort and able to speak in complete sentences Neuro Other: General: A&O x's 3, RUE splinted. Expression: Decreased blink Voice: Intact Tremor: RUE rest and LUE postural tremor Tone: unable to assess RUE today Dyskinesia: None FFM: Decreased on right Foot taps: Slightly decreased- milan, induces spread of movement into right hand. Gait: Slow to stand, RUE splinted, short steps w/ low floor clearance. Psych: Pleasant affect. Assessment & Plan Assessment & Plan (1) Parkinson's disease without dyskinesia: Comment: Positive DaTscan, in setting of Depakote use, h/o alcohol abuse. Code(s): G20.A1 - Parkinson's disease without dyskinesia, without mention of fluctuations Category: Medical (2) Constipation: Code(s): K59.00 - Constipation, unspecified Category: Medical (3) Seizure: Code(s): R56.9 - Unspecified convulsions Category: Medical Plan For PD: Discussed reasonable expectations of medications to decrease tremor. Amantadine may be more effective for tremor, however, would not increase at this time as pt already has c/o constipation. Increase CD-LD 25-100mg from 1.5 tabs tid to 2 tabs qam and 1.5 tabs tid. Continue Amantadine 100mg qd Increase Miralax 17gm qd in 6-80z fluid of choice to daily, continue senna- for constipation. Will refer pt for GI consult. Use covered coffee cups for all hot beverages. For seizure: No interval seizure activity. Continue Phenytoin 200mg bid Continue Depakote 750mg bid Continue folic acid and vit b-12 supplement. Recheck CBC, CMP, Phenytoin, Depakote today. Pt does not believe she has had a recent bone density exam, pt has had 2 recet Fx's and is on chronic phenytoin- will ask PCP to consider. ?f/u in 6 months, or sooner with any new/worsening s/s. Orders: Orders Complete Blood Count Auto Diff Today R56.9 - Unspecified convulsions Phenytoin Dilantin Today R56.9 - Unspecified convulsions Comprehensive Met. Panel Today R56.9 - Unspecified convulsions Valproate Today R56.9 - Unspecified convulsions Referrals Gastroenterology Referral G20.A1 - Parkinson's disease without dyskinesia, without mention of fluctuations, K59.00 - Constipation, unspecified Medications: Changed From carbidopa-levodopa 25-100 mg take w/ a cracker 30 minutes before breakfast, lunch, dinner, and at bedtime 1.5 tabs PO QID 30 days 180 tabs 3RF To carbidopa-levodopa 25-100 mg 2 tabs in am, and 1.5 tabs tid orally 4 times a day; take w/ a cracker 30 minutes before breakfast, lunch, dinner, and at bedtime 210 tabs 3RF 30 days Coding Level of Care Code Est Pt Level 4 (06186) Diagnoses Parkinson's disease without dyskinesia G20.A1 Constipation K59.00 Seizure R56.9
[2023-07-28 10:46] VITALS: BP 145/70; PULSE 73; O2SAT 97; BMI 25.2
== END 2023-07-28 11:50 | disposition home or self-care (01) ==
PROVIDERS: PCP Internal Medicine; Visit Provider Nurse Practitioner Family
DX: G20.A1 Parkinson's disease without dyskinesia, without mention of fluctuations (principal); K59.00 Constipation, unspecified; R56.9 Unspecified convulsions
CPT/HCPCS: 99214

== ENCOUNTER → 2023-07-28 10:25 | Outpatient (BNVA) | payer OTHER, SELFPAY | PROVIDERS: PCP Internal Medicine; Visit Provider Nurse Practitioner Family ==

== ENCOUNTER 2023-07-28 11:42 | Outpatient (REF) | payer OTHER, SELFPAY ==
[2023-07-28 17:52] LABS: MANUAL DIFF FLAG NO
[2023-07-28 17:55] LABS: Basophils Percent Auto 0.2 % (0-2); Eosinophils Absolute Auto 0.2 X10*3/uL (0.0-0.4); Eosinophils Percent Auto 2.8 % (0-4); Hematocrit 35.2 % (37.0-47.0); Imm Gran Abs Auto 0.01 X10*3/uL (0.00-0.03); Imm Gran Pct Auto 0.2 % (0.0-0.4); Lymphocytes Absolute Auto 1.3 X10*3/uL (1.2-4.9); Lymphocytes Percent Auto 24.6 % (20-40); Mean Corpuscular HGB Conc 34.1 g/dl (31.0-35.0); Mean Corpuscular Hemoglobin 34.4 pg (27.0-33.0); Mean Corpuscular Volume 100.9 fL (80.0-98.0); Mean Platelet Volume 10.7 fL (9.4-12.3); Monocytes Absolute Auto 0.4 X10*3/uL (0.1-1.2); Monocytes Percent Auto 7.4 % (2-11); Neutrophils Absolute Auto 3.5 x10*3/uL (2.0-8.3); Neutrophils Percent Auto 64.8 % (45-73); Platelet Count 204 X10*3/uL (160-400); Red Blood Count 3.49 X10*6/uL (4.20-5.50); Red Cell Distribution Width 13.5 % (11.0-16.0); White Blood Count 5.4 X10*3/uL (4.8-10.8)
[2023-07-28 18:10] LABS: Alanine Aminotransferase 13 U/L (0-31); Albumin Level 3.7 g/dL (3.5-5.0); Alkaline Phosphatase 90 U/L (39-117); Anion Gap 13 (12-20); Aspartate Amino Transferase 14 U/L (5-31); Bilirubin Total 0.3 mg/dL (0.0-1.0); Blood Urea Nitrogen 25 mg/dL (9-16); Calcium 8.8 mg/dL (8.4-10.2); Carbon Dioxide 26 mmol/L (22-29); Chloride 108 mmol/L (96-108); Estimated Glomerular Filt Rate > 60; Glucose Random 92 mg/dL (60-115); Potassium 4.5 mmol/L (3.3-5.1); Sodium 142 mmol/L (135-145); Total Protein 6.5 g/dL (6.5-8.0)
[2023-07-28 18:43] LABS: Folate 14.2 ng/mL (> or = 4.0); Vitamin B12 1302 pg/mL (200-900)
[2023-07-28 18:50] LABS: Phenytoin Dilantin 14.6 ug/mL (10.0-20.0); Valproate 32.3 mcg/mL (50.0-100.0)
[2023-07-29 05:15] LABS: Estimated Average Glucose 105 mg/dL; Hemoglobin A1c % 5.3 % (<6.0)
[2023-08-02 09:34] LABS: Methylmalonic Acid 152 nmol/L (87-318)
== END 2023-07-28 11:43 | disposition home or self-care (01) ==
LOC: HO.HKASLDS 11:42
PROVIDERS: Visit Provider Nurse Practitioner Family
DX: D64.9 Anemia, unspecified (principal); R25.1 Tremor, unspecified; G40.909 Epilepsy, unspecified, not intractable, without status epilepticus; G20.A1 Parkinson's disease without dyskinesia, without mention of fluctuations; R56.9 Unspecified convulsions
CPT/HCPCS: 36415; 80053; 80164; 80185; 82607; 82746; 83036; 83921; 85025

== ENCOUNTER 2023-08-01 10:59 | Outpatient (REF) | payer MEDICARE, SELFPAY ==
--- NOTE | ~2023-08-01 | XR_ITS ---
EXAMINATION: XR CLAVICLE, RIGHT CLINICAL INFORMATION: Fracture of unspecified part of unspecified clavicle, initial encounter. COMPARISON: 07/26/2023. TECHNIQUE: Two views of the right clavicle. FINDINGS: Bones are diffusely demineralized. Redemonstration of displaced, mildly comminuted fracture of the distal third of the right clavicle. There is increased relative superior and inferior displacement of the overlapping fracture fragments now measuring more than 1 shaft width. There is increased apical displacement of the distal aspect of the medial fracture fragment. There is approximately 2.2 cm of override of fracture fragments. Images of the proximal humerus partially redemonstrate old healed fracture of the surgical neck of the proximal right humerus. XR/XR clavicle RT IMPRESSION: Increased displacement of comminuted fracture of the distal third of the right clavicle.
== END 2023-08-01 11:00 | disposition home or self-care (01) ==
LOC: HO.HOSX 10:59
PROVIDERS: Visit Provider Physician Assistant
DX: S42.009A Fracture of unspecified part of unspecified clavicle, initial encounter for closed fracture (principal)
CPT/HCPCS: 73000

== ENCOUNTER 2023-08-01 12:59 | Outpatient (AMB) | payer OTHER, SELFPAY ==
--- NOTE | 2023-08-01 13:14 | MHC.OFFVIS ---
Intake Visit Reasons: FC-Right clavicle fracture-DOI 07/26/23 Intake Note: Cielo a 67 year old ambidextrous female who presents today for an ER follow up of right clavicle fracture, DOI 07/26/23. Patient reports that she fell on her right shoulder when stepping off a [employer] bus. She heard a loud crack and presented to [facility] ED where xrays were taken and placed in a sling. Currently she has intermittent pain in her clavicle area. Denies numbness or tinglig. Finds little relief with extra strength Tylenol. Allergies azithromycin [AZITHROMYCIN] Allergy (Unknown, Verified 08/01/23 13:23) HIVES Macrolide Antibiotics Allergy (Unknown, Verified 08/01/23 13:23) Unknown HPI HPI FC-Right clavicle fracture-DOI 07/26/23: Details: 67-year-old ambidextrous female who presents to the office today for an ER follow-up of right clavicle injury after she fell on her right shoulder while stepping off a [employer] bus, 07/26/23. She reports she heard a loud crack in her clavicle upon injury. She was seen at ED where x-rays were performed and she was placed in a sling. She currently states she has intermittent pain in her clavicle area which comes with movement. Her pain is aggravated at night. She denies any numbness and tingling. She finds mild relief with extra strength Tylenol. [facility] Medical History Parkinson's disease Hx of fracture of femur History of alcohol abuse Diabetes History of encephalopathy History of traumatic subdural hematoma Tobacco dependence Atherosclerotic cardiovascular disease Non-rheumatic aortic stenosis Preoperative cardiovascular examination Myocardial infarct History of coronary artery disease Seizure disorder Hypertension Fall Surgical History History of hip surgery Family History Mother No problems noted. Father No problems noted. Social History (Updated 08/01/23 @ 13:24 by PEDRO Jimenes) Household Members: Other [facility]: [facility] intake: former Patient Tobacco Use Status: Current everyday Tobacco user Tobacco use type: Cigarette Cigarette Packs Per Day: 1 Cigarettes Per Day: 5 Second Hand Smoke Exposure: No Advance Directives Date on File: 01/26/21 service: No Current occupational status: disabled Current occupation: [employer] Review of Systems Const All systems reviewed & are unremarkable except as noted in HPI and below Physical Exam Const General: cooperative and no acute distress Orientation/consciousness: patient oriented x3 Resp Effort & Inspection: normal respiratory effort and able to speak in complete sentences Cardio Peripheral pulses: Peripheral pulses 2+ throughout Neuro General: patient oriented x3 Extrem Other: Right clavicle: Skin is intact. No skin tenting or skin breakdown. There is an obvious bony deformity with tenderness to palpation over the fracture site. Anterior deltoid sensation is intact. Full ROM of elbow with no pain. No pain along the forearm. Negative squeeze test. No pain along the distal radius. NVI. Office Procedures Fracture Care Fracture Billing Code: Fracture Billing Code Results Reviewed Results Reviewed: Xrays were obtained in the office today and personally reviewed by me of the right clavicle show minimally displaced clavicle fracture Assessment & Plan Assessment & Plan (1) Right clavicle fracture: Code(s): S42.001A - Fracture of unspecified part of right clavicle, initial encounter for closed fracture Category: Medical Plan She will continue using the sling for 4 weeks which she can remove for hygiene and exercises in front of the body, no overhead reaching or heavy lifting. I also gave her a prescription of tramadol to take at bedtime at night to help with her discomfort. She will see me back in 4 weeks with new x-rays, sooner if needed. Orders: Orders XR clavicle RT Today S42.009A - Fracture of unspecified part of unspecified clavicle, initial encounter for closed fracture Medications: New tramadol 50 mg PO BEDTIME 7 tabs 0RF 7 days Patient Instructions: Scribed for Jennifer Tillman PA-C, by Parag Templeton medical customer service representative, on 07/20/2023 at 1:15 PM STEPHEN. Jennifer Lewis PA-C, have personally reviewed and agree with the information entered by the scribe. Coding Level of Care Code Est Pt Level 3 (86618) Diagnoses Right clavicle fracture S42.001A CPT Codes Fracture Care - Fracture Billing Code: Fracture Billing Code ([id number])
== END 2023-08-01 14:02 | disposition home or self-care (01) ==
PROVIDERS: Visit Provider Physician Assistant
DX: S42.001A Fracture of unspecified part of right clavicle, initial encounter for closed fracture (principal)
CPT/HCPCS: 99214

== ENCOUNTER 2023-08-29 10:19 | Outpatient (AMB) | payer OTHER, SELFPAY ==
--- NOTE | 2023-08-29 10:34 | A.OFFVIS_ITS ---
Vital Signs 08/29/23 10:44 Height 5 ft 5 in Weight 151 lb BMI 25.1 Intake Visit Reasons: OV-Right clavicle fracture-DOI 07/26/23 Intake Note: Cielo a 67 year old ambidextrous female who presents today for a follow up of right clavicle fracture, DOI 07/26/23. Xrays updated. Patient reports she is doing well, states she will have discomfort with certain arm movements. She continues to work on arm exercises and has discontinued use of sling. Allergies azithromycin [AZITHROMYCIN] Allergy (Unknown, Verified 08/29/23 10:39) HIVES Macrolide Antibiotics Allergy (Unknown, Verified 08/29/23 10:39) Unknown HPI HPI OV-Right clavicle fracture-DOI 07/26/23: Details: 67-year-old ambidextrous female who returns to the office today for a follow-up of right clavicle fracture, 07/26/23. She states she has improvement in her pain however she continues to have discomfort with certain arm movement. She continues to work on arm exercises as instructed. She has discontinued the use of her sling. She has no other concerns today. [facility] Medical History Parkinson's disease Hx of fracture of femur History of alcohol abuse Diabetes History of encephalopathy History of traumatic subdural hematoma Tobacco dependence Atherosclerotic cardiovascular disease Non-rheumatic aortic stenosis Preoperative cardiovascular examination Myocardial infarct History of coronary artery disease Seizure disorder Hypertension Fall Surgical History History of hip surgery Family History Mother No problems noted. Father No problems noted. Social History Household Members: Other Housing: Other Housing Other:: [facility] Alcohol intake: former Patient Tobacco Use Status: Current everyday Tobacco user Tobacco use type: Cigarette Cigarette Packs Per Day: 1 Cigarettes Per Day: 5 Second Hand Smoke Exposure: No Advance Directives Date on File: 01/26/21 service: No Current occupational status: disabled Current occupation: [employer] Review of Systems Const All systems reviewed & are unremarkable except as noted in HPI and below Physical Exam Vital Signs: BMI result Body Mass Index 25.1 Const General: cooperative and no acute distress Orientation/consciousness: patient oriented x3 Resp Effort & Inspection: normal respiratory effort and able to speak in complete sentences Cardio Peripheral pulses: Peripheral pulses 2+ throughout Neuro General: patient oriented x3 Extrem Other: Right clavicle: Skin is intact. No skin tenting or skin breakdown. No tenderness over the clavicle. Anterior deltoid sensation is intact. Full ROM of elbow with no pain. No pain along the forearm. Negative squeeze test. No pain along the distal radius. NVI. Results Reviewed Results Reviewed: Xrays were obtained in the office today and personally reviewed by me of the right clavicle show minimally displaced clavicle fractur, unchanged alignment from previous films. Assessment & Plan Assessment & Plan (1) Right clavicle fracture: Code(s): S42.001A - Fracture of unspecified part of right clavicle, initial encounter for closed fracture Category: Medical Qualifiers: Encounter type: subsequent encounter Clavicle location: shaft Fracture type: closed Fracture healing: with routine healing Plan She will continue to work on exercises at home. She will increase activities as tolerated using caution to avoid any type of overhead lifting or strenuous activities that may delay her healing. I encouraged her to use Tylenol and ibuprofen OTC for pain relief. I would like to see her back in 6-8 weeks with new x-rays, sooner if needed. Orders: Orders XR clavicle RT Today S42.009A - Fracture of unspecified part of unspecified clavicle, initial encounter for closed fracture Patient Instructions: Scribed for Jennifer Tillman PA-C, by Parag Templeton remote medical coder, on 08/29/2023 at 10:30 AM EST.? I, Jennifer Tillman PA-C, have personally reviewed and agree with the information entered by the scribe. Coding Level of Care Code Global (56987) Diagnoses Right clavicle fracture S42.001A Encounter type: subsequent encounter Clavicle location: shaft Fracture type: closed Fracture healing: with routine healing
[2023-08-29 10:44] VITALS: BMI 25.1
== END 2023-08-29 11:39 | disposition home or self-care (01) ==
PROVIDERS: PCP Internal Medicine; Visit Provider Physician Assistant
DX: S42.001A Fracture of unspecified part of right clavicle, initial encounter for closed fracture (principal)
CPT/HCPCS: 99213

== ENCOUNTER 2023-08-29 15:46 | Outpatient (REF) | payer MEDICARE, SELFPAY ==
--- NOTE | ~2023-08-29 | XR_ITS ---
EXAMINATION: XR CLAVICLE, RIGHT CLINICAL INFORMATION: Right clavicle, fracture of unspecified part of clavicle. COMPARISON: August 01, 2023, July 26, 2023. TECHNIQUE: 2 views of the right clavicle. FINDINGS: Redemonstration of displaced, mildly comminuted fracture of the distal third of the right clavicle. Similar alignment of fracture fragments with approximately one shaft width of inferior displacement of the distal fracture fragment. Mild osteoarthritis of the acromioclavicular joint. Redemonstration of old healed fracture of the surgical neck of the proximal right humerus. XR/XR clavicle RT IMPRESSION: Redemonstration of displaced, mildly comminuted fracture of the distal third of the right clavicle. Similar alignment of fracture fragments with approximately one shaft width of inferior displacement of the distal fracture fragment.
== END 2023-08-29 15:47 | disposition home or self-care (01) ==
LOC: HO.HOSX 15:46
PROVIDERS: Visit Provider Physician Assistant
DX: S42.031D Displaced fracture of lateral end of right clavicle, subsequent encounter for fracture with routine healing (principal); X58.XXXD Exposure to other specified factors, subsequent encounter; Y93.9 Activity, unspecified; Y92.9 Unspecified place or not applicable
CPT/HCPCS: 73000

== ENCOUNTER 2023-10-28 10:03 | Outpatient (AMB) | payer MEDICARE, SELFPAY ==
--- NOTE | 2023-10-28 10:08 | MHC.OFFVIS ---
Vital Signs 10/28/23 10:14 Height 5 ft 5 in Weight 151 lb BMI 25.1 Intake Visit Reasons: ov-RT clavicle fx, DOI 07/26/23 w/ XR Intake Note: Cielo a 68 year old female who presents today for a follow up of right clavicle fracture, DOI 07/26/23. Patient reports she continues to have discomfort however her pain has been tolerable. She continues to do at home exercises. Finds relief with Tylenol extra strength. Allergies azithromycin [AZITHROMYCIN] Allergy (Unknown, Verified 10/28/23 10:14) HIVES Macrolide Antibiotics Allergy (Unknown, Verified 10/28/23 10:14) Unknown Medication List - Last Reconciled 10/28/23 by Jennifer Tillman PA-C acetaminophen 650 mg PO Q4H PRN amantadine HCl 100 mg PO DAILY carbidopa-levodopa 25-100 mg 2 tabs in am, and 1.5 tabs tid orally 4 times a day; take w/ a cracker 30 minutes before breakfast, lunch, dinner, and at bedtime 30 days cholecalciferol (vitamin D3) 1,250 mcg PO QMONTH divalproex 3 tabs PO BID fluoxetine 1 cap PO DAILY folic acid 1 tab PO DAILY gabapentin mg PO guaifenesin 200 mg PO Q4H PRN lisinopril 30 mg PO DAILY loperamide 2 mg PO 8XD PRN magnesium hydroxide (Milk of Magnesia) 30 mL PO DAILY PRN mecobalamin (vitamin B12) 500 mcg orally daily; 30 days nitroglycerin 0.4 mg sublingual Q5M PRN phenytoin sodium extended 2 tabs PO BID polyethylene glycol 3350 (Miralax) 17 grams PO DAILY 30 days pravastatin 1 tab PO DAILY sennosides (senna) 17.2 mg PO DAILY tramadol 50 mg PO BEDTIME 7 days HPI HPI ov-RT clavicle fx, DOI 07/26/23 w/ XR: Details: 68-year-old female who returns to the office today for a follow-up of right clavicle fracture, 07/26/23. She states she has tolerable pain and discomfort in her clavicle. She also noticed cracking with movement of her arm. She continues to performed home exercises as instructed. She takes Tylenol for her pain. She has no other concerns today. [facility] Medical History Parkinson's disease Hx of fracture of femur History of alcohol abuse Diabetes History of encephalopathy History of traumatic subdural hematoma Tobacco dependence Atherosclerotic cardiovascular disease Non-rheumatic aortic stenosis Preoperative cardiovascular examination Myocardial infarct History of coronary artery disease Seizure disorder Hypertension Fall Surgical History History of hip surgery Family History Mother No problems noted. Father No problems noted. Social History Household Members: Other Housing: Other Housing Other:: [facility] Alcohol intake: former Patient Tobacco Use Status: Current everyday Tobacco user Tobacco use type: Cigarette Cigarette Packs Per Day: 1 Cigarettes Per Day: 5 Second Hand Smoke Exposure: No Advance Directives Date on File: 01/26/21 service: No Current occupational status: disabled Current occupation: [employer] Review of Systems Const All systems reviewed & are unremarkable except as noted in HPI and below Physical Exam Vital Signs: BMI result Body Mass Index 25.1 Const General: cooperative and no acute distress Orientation/consciousness: patient oriented x3 Resp Effort & Inspection: normal respiratory effort and able to speak in complete sentences Cardio Peripheral pulses: Peripheral pulses 2+ throughout Neuro General: patient oriented x3 Extrem Other: Right clavicle: Skin is intact. No skin tenting or skin breakdown. No tenderness over the clavicle. Anterior deltoid sensation is intact. Full ROM of elbow with no pain. No pain along the forearm. Negative squeeze test. No pain along the distal radius. NVI. Results Reviewed Results Reviewed: Xrays were obtained in the office today and personally reviewed by me of the right clavicle show minimally displaced clavicle fractur, unchanged alignment from previous films. Assessment & Plan Assessment & Plan (1) Right clavicle fracture: Code(s): S42.001A - Fracture of unspecified part of right clavicle, initial encounter for closed fracture Category: Medical Qualifiers: Clavicle location: shaft Encounter type: subsequent encounter Fracture healing: with routine healing Fracture type: closed Plan We discussed the role of physical therapy to work on postural training and myofascial release. I did order physical therapy in the office today which she will attend. She will continue to increase activities as tolerated and if there are any worsening symptoms or concerns, he will contact the office, otherwise follow-up as needed. Orders: Orders XR clavicle RT Today S42.009A - Fracture of unspecified part of unspecified clavicle, initial encounter for closed fracture PT Evaluation and Treatment Today S42.001A - Fracture of unspecified part of right clavicle, initial encounter for closed fracture Patient Instructions: Scribed for Jennifer Tillman PA-C, by Parag Templeton medical transcription supervisor, on 10/28/2023 at 10:15 AM EST.? I, Jennifer Tillman PA-C, have personally reviewed and agree with the information entered by the scribe. Coding Level of Care Code Est Pt Level 3 (06403) Diagnoses Right clavicle fracture S42.001A Clavicle location: shaft Encounter type: subsequent encounter Fracture healing: with routine healing Fracture type: closed
[2023-10-28 10:14] VITALS: BMI 25.1
== END 2023-10-28 10:24 | disposition home or self-care (01) ==
PROVIDERS: PCP Internal Medicine; Visit Provider Physician Assistant
DX: S42.001D Fracture of unspecified part of right clavicle, subsequent encounter for fracture with routine healing (principal)
CPT/HCPCS: 99213

== ENCOUNTER 2023-10-28 10:51 | Outpatient (REF) | payer MEDICARE, SELFPAY ==
--- NOTE | ~2023-10-28 | XR_ITS ---
EXAMINATION: XR CLAVICLE, RIGHT CLINICAL INFORMATION: Fracture of clavicle. COMPARISON: Right clavicle 08/29/2023, 08/01/2023, and 07/26/2023. TECHNIQUE: Two views of the right clavicle. FINDINGS: Redemonstration of displaced, comminuted fracture of the distal third of the right clavicle. Approximately one shaft width of inferior displacement of the distal fracture fragment redemonstrated. There has been some interval bridging callus formation although fracture lines are still visible. Mild osteoarthritis of the acromioclavicular joint. Redemonstration of partially imaged old healed fracture of the surgical neck of the proximal right humerus. XR/XR clavicle RT IMPRESSION: Redemonstration of healing fracture of the distal right clavicle. Electronically signed by: Dea Kinney MD 01/24/2024 10:55 AM STEPHEN WATSON
== END 2023-10-28 10:52 | disposition home or self-care (01) ==
LOC: HO.HOSX 10:51
PROVIDERS: Visit Provider Physician Assistant
DX: S42.009A Fracture of unspecified part of unspecified clavicle, initial encounter for closed fracture (principal); S42.001A Fracture of unspecified part of right clavicle, initial encounter for closed fracture
CPT/HCPCS: 73000; 99212

== ENCOUNTER 2024-01-11 12:21 | Outpatient (AMB) | payer MEDICARE, MEDICAID, SELFPAY ==
[2024-01-11 12:24] VITALS: BP 136/86; PULSE 84; O2SAT 97; BMI 27.9
--- NOTE | 2024-01-11 12:24 | MHC.OFFVIS ---
Vital Signs 01/11/24 12:24 Height 5 ft 5 in Weight 167 lb 8.821 oz BMI 27.9 BP 136/86 Blood Pressure Location Rt brachial Position Sitting Pulse 84 Pulse Source Pulse Oximeter Pulse Oximetry (%) 97 Oxygen Delivery Method Room Air Intake Visit Reasons: Constipation, Parkinson's Intake Note: Relevant Flags or Indicators ? Requires Band Saw Marker? Hiram Buck presents in office today for a scheduled initial assessment. CC; Since last visit; labs ordered ? per PCP ~ 2 mos ago. Via [facility]. Rx ordered ? no. Diagnostics/images ordered ? none. Relevant GI Sx as reported per pt? Fecal abnormalities o?? Constipation ? Hx of any recent surgeries; None Band Saw Marker Required: No Allergies azithromycin [AZITHROMYCIN] Allergy (Unknown, Verified 01/11/24 12:25) HIVES Macrolide Antibiotics Allergy (Unknown, Verified 01/11/24 12:25) Unknown HPI Comments Details: 68 y.o F with PMH of etOH use disorder with resultant withdrawal seizures, tremors likely from PD, who is here for management of constipation. Reports with the amantadine she was going almost 6-7 days without having a BM. Ultimately pt decided to stop the amantidine (abruptly!) 2 months ago and since then has been going every day. Now the stool is formed/soft. No straining involved. Also taking senna and colace. Has not had to reach for miralax since discontinuing amantadine. Reports tremors did not get worse on discontinuing it and does not want to go back on it. Pt has never had a colo-says it never came up with her PCP. Quit etOH 2 years ago. Although labs reviewed and cont to have macrocytic anemia despite normal B12 and folate. Pt also reports easy bruising. Used to have low platelts, but were normal on most recent CBC. [facility] Medical History Parkinson's disease Hx of fracture of femur History of alcohol abuse Diabetes History of encephalopathy History of traumatic subdural hematoma Tobacco dependence Atherosclerotic cardiovascular disease Non-rheumatic aortic stenosis Preoperative cardiovascular examination Myocardial infarct History of coronary artery disease Seizure disorder Hypertension Fall Surgical History History of hip surgery Family History Mother No problems noted. Father No problems noted. 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 Review of Systems Const All systems reviewed & are unremarkable except as noted in HPI and below Physical Exam Vital Signs: Last Vital Signs Pulse 84 01/11/24 12:24 BP 136/86 01/11/24 12:24 Pulse Ox 97 01/11/24 12:24 Oxygen Delivery Method Room Air 01/11/24 12:24 BMI result Body Mass Index 27.9 No apparent distress Nonicteric Abdomen soft, nondistended Alert and oriented x3, course tremors bilateral upper extremities L>R at rest and at movement Assessment & Plan Assessment & Plan (1) Easy bruising: Code(s): R23.3 - Spontaneous ecchymoses Category: Medical (2) Coronary artery disease: Code(s): I25.10 - Atherosclerotic heart disease of [place] coronary artery without angina pectoris Category: Medical (3) Anemia: Code(s): D64.9 - Anemia, unspecified Category: Medical (4) Constipation: Code(s): K59.00 - Constipation, unspecified Category: Medical Plan 1. Constipation: resolved after pt self-discontinued amantadine. She was advised to not stop med suddenly without informing her providers black med like amantadine which may have morbid effects of sudden withdrawal of med. 2. Anemia: normocytic. Will get labs including repeat CBC with iron panel and celiac serology. Will also check PETH for ? ongoing etOH use. If RUBIN, will book for both EGD/colo. If non-RUBIN without etOH use, will refer to heme. She will need an echo prior to the procedure given known CAD hx. She'll need just a colo in that case for screening. 3. Easy bruising: Repeat CBC to r/o thrombocytopenia PT and PTT Also checking Vit C as reports limited access to fresh fruits and vegetables at her current facility. Follow up after procedure. Orders: Orders Vitamin B12 and Folate Today D64.9 - Anemia, unspecified Prothrombin Time INR Today R23.3 - Spontaneous ecchymoses Mixing Study (PT/PTT) Today R23.3 - Spontaneous ecchymoses Vitamin C Today R23.3 - Spontaneous ecchymoses CA echo transthoracic complete Today I25.10 - Atherosclerotic heart disease of [place] coronary artery without angina pectoris Complete Blood Count no Diff Today D64.9 - Anemia, unspecified Ferritin Today D64.9 - Anemia, unspecified IRON PROFILE Today D64.9 - Anemia, unspecified Transglutaminase IgA Today D64.9 - Anemia, unspecified Immunoglobulin A Today D64.9 - Anemia, unspecified Phosphatidylethanol, Blood Today D64.9 - Anemia, unspecified Medications: New peg 3350-electrolytes 236-22.74-6.74 -5.86 gram (Golytely) as per split prep instructions, until fecal effluent is clear 240 mL PO Q10M 4,000 mL 0RF colonoscopy Coding Level of Care Code New Pt Level 4 (79470) Complex EM visit Add On G2211 Diagnoses Easy bruising R23.3 Coronary artery disease I25.10 Anemia D64.9 Constipation K59.00
== END 2024-01-11 13:16 | disposition home or self-care (01) ==
PROVIDERS: PCP Internal Medicine; Visit Provider Internal Medicine
DX: R23.3 Spontaneous ecchymoses (principal); I25.10 Atherosclerotic heart disease of native coronary artery without angina pectoris; D64.9 Anemia, unspecified; K59.00 Constipation, unspecified
CPT/HCPCS: 99204; G2211

== ENCOUNTER → 2024-01-11 12:21 | Outpatient (BNVA) | payer MEDICARE, MEDICAID, SELFPAY | PROVIDERS: PCP Internal Medicine; Visit Provider Internal Medicine | DX: K59.00 Constipation, unspecified (principal); D64.9 Anemia, unspecified; R23.3 Spontaneous ecchymoses; I25.10 Atherosclerotic heart disease of native coronary artery without angina pectoris | CPT/HCPCS: 99202 ==

== ENCOUNTER 2024-01-29 00:48 | Emergency (ER) | payer MEDICARE, MEDICAID, SELFPAY ==
--- NOTE | ~2024-01-29 | CT_ITS ---
EXAMINATION: CT HEAD WITHOUT CONTRAST CT CERVICAL SPINE WITHOUT CONTRAST CLINICAL INFORMATION: Fall. Pain. COMPARISON: December 08, 2022 TECHNIQUE: Contiguous axial imaging was performed through the head and cervical spine vertex without intravenous administration of contrast. Sagittal and coronal reformatted images also obtained. This CT examination was performed using dose optimization techniques as appropriate, variously including the following: *Automated exposure control *Adjustment of mA and/or kV according to patient size (this includes techniques or standardized protocols for targeted exams where dose is matched to indication/reason for exam; i.e. extremities or head) *Use of iterative reconstruction technique DLP: 971 mGy-cm FINDINGS: There is a an old left basal ganglia/periventricular white matter infarct with ex vacuo dilatation of the body of the left lateral ventricle. There is generalized cerebral volume loss with prominence of the lateral and third ventricles. The cortical sulci are widened appropriately. The fourth ventricle and basal cisterns are normally outlined. There is mild to moderate bilateral periventricular and central white matter diminished attenuation. There is no acute territorial defect, hemorrhage or midline shift. The extra-axial spaces are unremarkable. Calvarium/scalp: Intact. Maxillofacial sinuses and mastoids: Clear as visualized. Cervical spine: The alignment is normal. There is mild diffuse cervical disc degenerative change with minimal loss of disc space, endplate change and mild osteophyte formation associated with mild to moderate diffuse facet osteoarthritic hypertrophic change without significant spinal canal and with mild multilevel neuroforaminal narrowing. The bony structures are osteopenic. There is no fracture. The soft tissues are unremarkable. The visualized upper lung [place] are clear. There are multiple low density bilateral thyroid nodules measuring up to [address]/CT cervical spine wo IV con IMPRESSION: 1. No acute intracranial process seen. 2. 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 3. No acute cervical spine fracture or malalignment. Electronically signed by: Ildefonso Cervantes MD 01/29/2024 02:32 AM EST
[2024-01-29 00:59] VITALS: BP 206/86; PULSE 71; RESP 16; TEMP 36.7; O2SAT 95; BMI 27.7
[2024-01-29 01:50] VITALS: BP 185/72; PULSE 71; RESP 16; TEMP 36.3; O2SAT 96
--- NOTE | 2024-01-29 02:16 | ED_ITS ---
HPI - Fall General Chief Complaint: Fall Stated Complaint: FALL Time Seen by Provider: 01/29/24 02:04 Source: patient and EMS Mode of arrival: ambulatory Limitations: no limitations History of Present Illness ED Provider: gurinder BAKER Narrative: Patient [facility] came here after the fall tripped on the rug fell on bilateral knee and then hit the head to the door with small hematoma on the right side of the forehead no other significant injuries patient is able to ambulate without any other pain also patient got superficial skin tear right hand Related Data Home Medications ?Medication ?Instructions ?Recorded ?Confirmed divalproex 250 mg tablet,delayed 3 tab PO BID 01/26/21 10/28/23 release fluoxetine 40 mg capsule 1 cap PO DAILY 01/26/21 10/28/23 folic acid 1 mg tablet 1 tab PO DAILY 01/26/21 10/28/23 pravastatin 20 mg tablet 1 tab PO DAILY 01/26/21 10/28/23 acetaminophen 325 mg capsule 650 mg PO Q4H PRN Pain 05/18/22 10/28/23 guaifenesin 100 mg/5 mL oral liquid 200 mg PO Q4H PRN Cough 05/18/22 10/28/23 loperamide 2 mg tablet 2 mg PO 8XD PRN Loose Stool 05/18/22 10/28/23 magnesium hydroxide 400 mg/5 mL 30 ml PO DAILY PRN Constipation 06/03/22 10/28/23 oral suspension (Milk of Magnesia) nitroglycerin 0.4 mg sublingual 0.4 mg sublingual Q5M PRN Chest 06/03/22 10/28/23 tablet Pain phenytoin sodium extended 100 mg 2 tab PO BID 06/03/22 10/28/23 capsule amantadine HCl 100 mg tablet 100 mg PO DAILY 12/09/22 10/28/23 gabapentin 100 mg capsule mg PO 07/28/23 10/28/23 sennosides 8.6 mg tablet (senna) 17.2 mg PO DAILY 07/28/23 10/28/23 bisacodyl 10 mg rectal suppository 10 mg AL DAILY PRN 01/11/24 cholecalciferol (vitamin D3) 50 50 mcg PO DAILY 01/11/24 mcg (2,000 unit) capsule cyanocobalamin (vitamin B-12) 500 500 mcg PO DAILY 01/11/24 mcg tablet docusate sodium 100 mg capsule 100 mg PO BID 01/11/24 (Colace) lisinopril 10 mg tablet 10 mg PO DAILY 01/11/24 loperamide 2 mg capsule 2 mg PO Q6H PRN 01/11/24 (Anti-Diarrheal (loperamide)) magnesium hydroxide 400 mg/5 mL 30 ml PO DAILY PRN 01/11/24 oral suspension (Milk of Magnesia) Previous Rx's ?Medication ?Instructions ?Recorded polyethylene glycol 3350 17 17 g PO DAILY 30 days #510 grams 04/29/23 gram/dose oral powder (Miralax) carbidopa 25 mg-levodopa 100 mg See Rx Instructions PO QID 30 days 07/28/23 tablet #210 tabs tramadol 50 mg tablet 50 mg PO BEDTIME 7 days #7 tabs 08/01/23 peg 3350-electrolytes 236 240 ml PO Q10M colonoscopy #4,000 01/11/24 gram-22.74 gram-6.74 gram-5.86 mL gram solution (Golytely) Allergies Allergy/AdvReac Type Severity Reaction Status Date / Time azithromycin [AZITHROMYCIN] Allergy Unknown HIVES Verified 01/29/24 01:00 Macrolide Antibiotics Allergy Unknown Unknown Verified 01/29/24 01:00 Review of Systems Review of Systems: Yes all other systems are reviewed and are negative PMF Past Medical History Medical History Parkinson's disease Hx of fracture of femur History of alcohol abuse Diabetes History of encephalopathy History of traumatic subdural hematoma Tobacco dependence Atherosclerotic cardiovascular disease Non-rheumatic aortic stenosis Preoperative cardiovascular examination Myocardial infarct History of coronary artery disease Seizure disorder Hypertension Fall Surgical History History of hip surgery Family History Family History Mother No problems noted. Father No problems noted. 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 Narrative: Patient is status post mechanical fall head CT and cervical spine CT negative patient is alert oriented x3 no loss of consciousness will discharge patient back to nursing with fall precautions Independent Interpretation I performed an independent interpretation of an: CT Scan Interpretation: Head and cervical CT negative Discharge Plan Discharge Clinical Impression: Fall Patient Disposition: Xfer SNF Transfer Details: CT scan of the head and C-spine negative for any acute no other significant injuries noted Instructions: Fall Prevention for Older Adults (ED) Additional Instructions: Care as advised Prescriptions: No Action fluoxetine 40 mg capsule 1 cap PO DAILY divalproex 250 mg tablet,delayed release (DR/EC) 3 tab PO BID folic acid 1 mg tablet 1 tab PO DAILY pravastatin 20 mg tablet 1 tab PO DAILY phenytoin sodium extended 100 mg capsule 2 tab PO BID magnesium hydroxide [Milk of Magnesia] 400 mg/5 mL Suspension 30 ml PO DAILY PRN (Reason: Constipation) nitroglycerin 0.4 mg Tablet, Sublingual 0.4 mg SUBLINGUAL Q5M PRN (Reason: Chest Pain) Rx Instructions: do not exceed 3 doses per episode amantadine HCl 100 mg tablet 100 mg PO DAILY acetaminophen 325 mg capsule 650 mg PO Q4H PRN (Reason: Pain) guaifenesin 100 mg/5 mL liquid 200 mg PO Q4H PRN (Reason: Cough) loperamide 2 mg tablet 2 mg PO 8XD PRN (Reason: Loose Stool) polyethylene glycol 3350 [Miralax] 17 gram/dose powder 17 g PO DAILY 30 Days Qty: 510 6RF gabapentin 100 mg capsule PO sennosides [senna] 8.6 mg tablet 17.2 mg PO DAILY carbidopa-levodopa 25-100 mg tablet See Rx Instructions PO QID 30 Days Qty: 210 3RF Rx Instructions: 2 tabs in am, and 1.5 tabs tid orally 4 times a day; take w/ a cracker 30 minutes before breakfast, lunch, dinner, and at bedtime tramadol 50 mg tablet 50 mg PO BEDTIME 7 Days Qty: 7 0RF lisinopril 10 mg tablet 10 mg PO DAILY cholecalciferol (vitamin D3) 50 mcg (2,000 unit) capsule 50 mcg PO DAILY cyanocobalamin (vitamin B-12) 500 mcg tablet 500 mcg PO DAILY docusate sodium [Colace] 100 mg capsule 100 mg PO BID bisacodyl 10 mg suppository 10 mg AL DAILY PRN loperamide [Anti-Diarrheal (loperamide)] 2 mg capsule 2 mg PO Q6H PRN magnesium hydroxide [Milk of Magnesia] 400 mg/5 mL suspension 30 ml PO DAILY PRN peg 3350-electrolytes [Golytely] 236-22.74-6.74 -5.86 gram recon soln 240 ml PO Q10M Qty: 4000 0RF Rx Instructions: as per split prep instructions, until fecal effluent is clear Interventions: ED Discharge Assessment Last Done: 01/29/24 04:31 Discharge Date/Time: 01/29/24 04:38 Print Language: Peruvian
--- NOTE | 2024-01-29 03:03 | MHC.EDTECH ---
Patient was assisted to walk to bathroom ,void and back to bed ,all safety measure in Place .
[2024-01-29 03:33] VITALS: BP 190/95; PULSE 62; RESP 16; TEMP 36.8; O2SAT 97
--- NOTE | 2024-01-29 04:30 | PC.NURSE ---
ROLANDA james report to Roxana at [facility] [place]
[2024-01-29 04:31] VITALS: BP 172/81; PULSE 71; RESP 16; TEMP 37.2; O2SAT 98
== END 2024-01-29 04:38 | disposition skilled nursing facility (03) ==
PROVIDERS: Emergency Provider Internal Medicine
DX: S00.93XA Contusion of unspecified part of head, initial encounter (principal); S89.91XA Unspecified injury of right lower leg, initial encounter; S89.92XA Unspecified injury of left lower leg, initial encounter; R51.9 Headache, unspecified; M54.2 Cervicalgia; W01.0XXA Fall on same level from slipping, tripping and stumbling without subsequent striking against object, initial encounter; Y93.89 Activity, other specified; Y92.89 Other specified places as the place of occurrence of the external cause; Y99.8 Other external cause status
CPT/HCPCS: 70450; 72125; 99283; 99284

== ENCOUNTER 2024-02-03 17:19 | Inpatient (IN) | payer MEDICARE, SELFPAY ==
[2024-02-03] VITALS (7 sets, daily range): BP systolic 130–194; BP diastolic 58–88; PULSE 89–102; RESP 14–20; TEMP 37.1–39.8; O2SAT 90–95; BMI 26.6
--- NOTE | ~2024-02-03 | XR_ITS ---
EXAMINATION: XR CHEST 1 VIEW CLINICAL INFORMATION: F U LLL infiltrate infarct, effusion COMPARISON: CT chest 04/04/2023 TECHNIQUE: Portable AP chest radiograph FINDINGS: Multifocal airspace opacity and coarse reticular opacities are present in the left lung base. Mild blunting of the left costophrenic sulcus. Minimal blunting of the right costophrenic sulcus. Dense aortic calcific atherosclerosis. No pneumothoraces. Normal heart size. XR/XR chest 1V IMPRESSION: *Mild left lower lobe atelectasis and/or consolidation similar to findings present on CT of the chest 02/03/2024. *Unchanged small left pleural effusion. *Possible trace right pleural effusion. Electronically signed by: Manish Juarez MD 02/06/2024 10:48 PM [facility]
--- NOTE | ~2024-02-03 | CT_ITS ---
EXAMINATION: CT CHEST, ABDOMEN AND PELVIS WITH CONTRAST CLINICAL INFORMATION: Trauma. COMPARISON: CT 10/12/2017. TECHNIQUE: Contiguous axial thin section helical images of the chest, abdomen and pelvis were performed following the administration of oral contrast and intravenous contrast. The data set was reformatted in the coronal and sagittal planes and reviewed on an independent workstation. Intravenous contrast: Omnipaque [address] examination was performed using dose optimization techniques as appropriate, variously including the following: *Automated exposure control *Adjustment of mA and/or kV according to patient size (this includes techniques or standardized protocols for targeted exams where dose is matched to indication/reason for exam; i.e. extremities or head) *Use of iterative reconstruction technique Dose Length Product: 827 mGycm. FINDINGS: LUNGS: Streaky and airspace opacities at the left lung base which could represent contusion in the setting of trauma, as well as pneumonia and/or aspiration. This may also represent a pulmonary infarct given the presence of prominent lower lobe pulmonary emboli. Linear scarring/atelectasis at the posterior right lung base. PULMONARY VESSELS: There are are prominent pulmonary emboli throughout the left lower lobe, and emboli in the posterior lingula and left upper lobe. Questionable subsegmental emboli in the right lower lobe and middle lobe. MEDIASTINUM: No mediastinal or hilar adenopathy. No pericardial effusion. Coronary artery calcifications. PLEURA: Small left pleural effusion. AXILLA: No lymphadenopathy. LIVER, GALLBLADDER, BILIARY TREE: No suspicious liver lesions. No biliary ductal dilatation PANCREAS: Normal SPLEEN: Normal ADRENAL GLANDS, KIDNEYS, URETERS, AND BLADDER: No hydronephrosis. Nephrograms are symmetric. Bilateral perinephric stranding without evidence of acute injury. Several simple appearing cysts in both kidneys, as well as hypoattenuating lesions that are too small to characterize. Some of these are new since 10/12/2017 and are indeterminate. These could be further evaluated with renal protocol CT pre and postcontrast. Diffuse thickening of the left adrenal gland, similar to previous. BOWEL LOOPS: No obstruction. No focal wall thickening or inflammatory process LYMPH NODES/RETROPERITONEUM: No retroperitoneal, mesenteric, or pelvic adenopathy. Mild ascites with perirenal fluid and fluid tracking along the paracolic gutters which appears similar to the previous study. Prominent ovarian veins extending into the pelvis on the left suggesting pelvic congestion syndrome. OSSEOUS STRUCTURES: No fracture. ADDITIONAL FINDINGS: Extensive atherosclerotic calcifications of the abdominal aorta, marked at the renal artery origins. CT/CT abdomen pelvis w IV con IMPRESSION: 1. There are prominent pulmonary emboli throughout the left lower lobe, and posterior lingula and left upper lobe. Questionable subsegmental emboli in the right lower lobe and middle lobe. 2. Streaky and airspace opacities at the left lung base could represent contusion in the setting of trauma, as well as pneumonia and/or aspiration. This may also represent a pulmonary infarct. Small left pleural effusion. 3. No acute traumatic injury to the abdomen or pelvis. 4. Mild ascites, similar to the previous study. 5. Bilateral renal cysts and hypoattenuating lesions that are too small to characterize. Some of these are new since 10/12/2017 and are indeterminate. These could be further evaluated with renal protocol CT pre and postcontrast. 6. Prominent ovarian veins extending into the pelvis on the left suggesting pelvic congestion syndrome. This critical result was discussed with Dr. Moreno at 8:10 PM on 02/03/2024 and it was ascertained that the content and urgency of the report was understood at the time of direct communication. Electronically signed by: Narinder Burns MD 02/03/2024 08:10 PM [facility]
[2024-02-03 17:45] LABS: MANUAL DIFF FLAG NO
[2024-02-03] MEDS: ondansetron HCL 4 MG/2 ML VIAL IVPUSH (17:45)
[2024-02-03] MEDS: Morphine Sulfate 2 MG/ML CARTRIDGE IVPUSH (17:45)
[2024-02-03 17:48] LABS: Basophils Percent Auto 0.3 % (0-2); Eosinophils Percent Auto 0.4 % (0-4); Hemoglobin 12.7 g/dl (12.0-16.0); Imm Gran Abs Auto 0.04 X10*3/uL (0.00-0.03); Imm Gran Pct Auto 0.4 % (0.0-0.4); Lymphocytes Percent Auto 11.1 % (20-40); Mean Corpuscular HGB Conc 33.4 g/dl (31.0-35.0); Mean Corpuscular Hemoglobin 33.2 pg (27.0-33.0); Mean Corpuscular Volume 99.5 fL (80.0-98.0); Mean Platelet Volume 10.1 fL (9.4-12.3); Monocytes Absolute Auto 0.6 X10*3/uL (0.1-1.2); Monocytes Percent Auto 6.7 % (2-11); Neutrophils Absolute Auto 7.4 x10*3/uL (2.0-8.3); Neutrophils Percent Auto 81.1 % (45-73); Platelet Count 169 X10*3/uL (160-400); Red Blood Count 3.82 X10*6/uL (4.20-5.50); White Blood Count 9.1 X10*3/uL (4.8-10.8)
[2024-02-03 18:04] LABS: INTERNATIONAL NORM RATIO 1.2 (0.9-1.1)
[2024-02-03 18:08] LABS: Alanine Aminotransferase 100 U/L (0-31); Albumin Level 3.5 g/dL (3.5-5.0); Alkaline Phosphatase 111 U/L (39-117); Anion Gap 10 (12-20); Aspartate Amino Transferase 95 U/L (5-31); Bilirubin Total 0.9 mg/dL (0.0-1.0); Blood Urea Nitrogen 18 mg/dL (9-16); Calcium 8.9 mg/dL (8.4-10.2); Carbon Dioxide 26 mmol/L (22-29); Chloride 103 mmol/L (96-108); Creatinine Clr Calc Pharmacy 65.5; Estimated Glomerular Filt Rate > 60; Glucose Random 133 mg/dL (60-115); Lipase 26 U/L (8-78); Sodium 135 mmol/L (135-145)
--- NOTE | 2024-02-03 18:45 | ED.GENADULT ---
HPI - General Adult General Chief complaint: General Medical Stated complaint: RIB PAIN FALL 2 DAYS AGO Time Seen by Provider: 02/03/24 17:21 Source: patient, RN notes reviewed and old records reviewed Mode of arrival: EMS Limitations: no limitations History of Present Illness ED Provider: Josh BAKER narrative: 68-year-old female with past medical history significant for coronary artery disease, Parkinson's disease, seizure disorder, anemia presents for evaluation of left-sided abdominal pain. Patient was seen here on Tuesday, 4 days ago after a fall. She reports that she fell because her slipper got caught in the carpet. ? She did strike her face. She presented to the ER here had a CT scan of her brain and cervical spine did not show any acute traumatic injuries and she was ultimately discharged back home. The patient reports worsening left-sided abdominal pain under her ribs. She reports her pain is worse with any kind of movement or deep inspiration The pain is 10/10. She would not take any medication help alleviate her symptoms. She has been ambulatory with some pain to her left side Related Data Home Medications ?Medication ?Instructions ?Recorded ?Confirmed divalproex 250 mg tablet,delayed 3 tab PO BID 01/26/21 10/28/23 release fluoxetine 40 mg capsule 1 cap PO DAILY 01/26/21 10/28/23 folic acid 1 mg tablet 1 tab PO DAILY 01/26/21 10/28/23 pravastatin 20 mg tablet 1 tab PO DAILY 01/26/21 10/28/23 acetaminophen 325 mg capsule 650 mg PO Q4H PRN Pain 05/18/22 10/28/23 guaifenesin 100 mg/5 mL oral liquid 200 mg PO Q4H PRN Cough 05/18/22 10/28/23 loperamide 2 mg tablet 2 mg PO 8XD PRN Loose Stool 05/18/22 10/28/23 magnesium hydroxide 400 mg/5 mL 30 ml PO DAILY PRN Constipation 06/03/22 10/28/23 oral suspension (Milk of Magnesia) nitroglycerin 0.4 mg sublingual 0.4 mg sublingual Q5M PRN Chest 06/03/22 10/28/23 tablet Pain phenytoin sodium extended 100 mg 2 tab PO BID 06/03/22 10/28/23 capsule amantadine HCl 100 mg tablet 100 mg PO DAILY 12/09/22 10/28/23 gabapentin 100 mg capsule mg PO 07/28/23 10/28/23 sennosides 8.6 mg tablet (senna) 17.2 mg PO DAILY 07/28/23 10/28/23 bisacodyl 10 mg rectal suppository 10 mg CO DAILY PRN 01/11/24 cholecalciferol (vitamin D3) 50 50 mcg PO DAILY 01/11/24 mcg (2,000 unit) capsule cyanocobalamin (vitamin B-12) 500 500 mcg PO DAILY 01/11/24 mcg tablet docusate sodium 100 mg capsule 100 mg PO BID 01/11/24 (Colace) lisinopril 10 mg tablet 10 mg PO DAILY 01/11/24 loperamide 2 mg capsule 2 mg PO Q6H PRN 01/11/24 (Anti-Diarrheal (loperamide)) magnesium hydroxide 400 mg/5 mL 30 ml PO DAILY PRN 01/11/24 oral suspension (Milk of Magnesia) Previous Rx's ?Medication ?Instructions ?Recorded polyethylene glycol 3350 17 17 g PO DAILY 30 days #510 grams 04/29/23 gram/dose oral powder (Miralax) carbidopa 25 mg-levodopa 100 mg See Rx Instructions PO QID 30 days 07/28/23 tablet #210 tabs tramadol 50 mg tablet 50 mg PO BEDTIME 7 days #7 tabs 08/01/23 peg 3350-electrolytes 236 240 ml PO Q10M colonoscopy #4,000 01/11/24 gram-22.74 gram-6.74 gram-5.86 mL gram solution (Golytely) Allergies Allergy/AdvReac Type Severity Reaction Status Date / Time azithromycin [AZITHROMYCIN] Allergy Unknown HIVES Verified 01/29/24 01:00 Macrolide Antibiotics Allergy Unknown Unknown Verified 02/03/24 17:28 Review of Systems Constitutional: Constitutional: Denies body ache(s), Denies chills, Denies fever(s), Reports frequent falls and Denies headache(s) Eyes: Eyes: Denies blurry vision, Denies exophthalmos, Denies floaters and Denies irritation ENT: Denies vertigo, Denies dizziness and Denies headache(s) Cardiovascular: Cardiovascular: Denies chest pain, Denies chest pain at rest and Denies dyspnea Respiratory: Respiratory: Denies cough, Reports pain on inspiration and Denies dyspnea Gastrointestinal: Gastrointestinal: Reports abdominal pain, Denies GI cramping, Denies nausea and Denies vomiting Musculoskeletal: Musculoskeletal: Denies back pain Integumentary/Breasts: Skin/Breast: Denies rash Neurologic: Denies vertigo, Denies dizziness, Reports frequent falls and Denies headache(s) Psychiatric: Psychiatric: Denies anxiety PMFSH Past Medical History Medical History Parkinson's disease Hx of fracture of femur History of alcohol abuse Diabetes History of encephalopathy History of traumatic subdural hematoma Tobacco dependence Atherosclerotic cardiovascular disease Non-rheumatic aortic stenosis Preoperative cardiovascular examination Myocardial infarct History of coronary artery disease Seizure disorder Hypertension Fall Surgical History History of hip surgery Family History Family History Mother No problems noted. Father No problems noted. 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 Physical Exam ED Vital Signs: Vital Signs - 24 hr 02/03/24 17:25 02/03/24 17:46 02/03/24 19:10 Temperature 99.5 F 100.9 F H Pulse Rate 102 H 98 97 Respiratory Rate 20 14 Blood Pressure 194/76 H 176/70 H 178/71 H Pulse Oximetry 95 94 Oxygen Delivery Method Room Air Room Air 02/03/24 19:26 02/03/24 21:01 Temperature 103.7 F H 99.0 F Pulse Rate 90 Respiratory Rate 18 Blood Pressure 140/61 H Pulse Oximetry 95 Oxygen Delivery Method Room Air BMI result Body Mass Index 26.6 Const General: healthy appearing, comfortable, no acute distress, alert and awake Nutritional Appearance: well nourished Orientation/consciousness: patient oriented x3 HENMT Head: Yes normocephalic and Yes atraumatic Eyes Eyelids: Yes eyelids normal Conjunctivae: conjunctivae normal Sclerae: sclerae normal Corneas: corneas normal Pupils: Equal, round and reactive pupils present EOM: EOMs intact bilaterally Neck Neck: Yes full ROM Resp Effort & Inspection: normal respiratory effort, able to speak in complete sentences and not labored Cardio Rate: regular rate Rhythm: regular rhythm GI Inspection: No distended Palpation (GI): Soft to palpation, not firm, Tenderness to palpation present (GI) in the LLQ and in the LUQ, Guarding due to palpation present (GI) in the LUQ and not rigid Skin General skin exam: elasticity normal Neuro Other: Parkinsonism tremors General: patient oriented x3 Cranial nerves: Yes Equal, round and reactive pupils present and Yes Bilaterally intact EOM present Cognition (Neuro): normal cognition Extrem Other: Moving all extremities well without any obvious deformities. No tenderness with the palpation of the left hip Course Reevaluation(s) Reevaluation #1: Patient has spiked a fever of 103.9 rectally. She only complains of abdominal pain, denies any chest pain, cough, shortness of breath, denies any nausea vomiting, diarrhea, urinary complaints. I added on blood cultures and lactic acid given the fever. I treated this with Tylenol. I ordered IV fluids. She has no obvious source of infection initially. I received a call from [facility], the patient has fairly extensive PE of the left lower lobe. There is concern for pulmonary infarct versus pulmonary contusion versus left lower lobe pneumonia. This was unable to tell me if there was any evidence of heart strain on the CT scan as this was done as a trauma scan with IV contrast but not on angiography. I added on an EKG, BNP and troponin. Time: 20:26 Reevaluation #2: Patient's troponin and BNP are both slightly elevated, the patient denies any chest pain, her EKG does not show any acute ischemia. The patient be given Lovenox for her PE, she was given ceftriaxone and doxycycline for possible pneumonia given her fever and left shift. She has an allergy to azithromycin. Time: 21:16 Medications Administered Generic Name Dose Route Start Last Admin Trade Name Freq PRN Reason Stop Dose Admin Doxycycline Hyclate 100 mg/ 250 mls @ 166.67 mls/hr 02/03/24 20:33 02/03/24 20:42 Sodium Chloride IV 02/03/24 22:02 166.67 mls/hr ONCE ONE Administration Discontinued Medications Generic Name Dose Route Start Last Admin Trade Name Kwame PRN Reason Stop Dose Admin Acetaminophen 650 mg 02/03/24 19:16 02/03/24 19:50 Acetaminophen 325 Mg Tablet PO 02/03/24 19:17 650 mg ONCE ONE Administration Ceftriaxone Sodium 1 gm 02/03/24 20:31 02/03/24 20:42 Ceftriaxone Sodium 1 Gm Vial IVPUSH 02/03/24 20:32 1 gm ONCE ONE Administration Sodium Chloride 1,000 mls @ 999 mls/hr 02/03/24 20:00 02/03/24 21:13 Ns IV 02/03/24 21:00 Infused .Q1H1M WILSON Infusion Iohexol 100 ml 02/03/24 18:47 02/03/24 18:51 Iohexol 350 Mg/Ml 100 Ml Infus..Btl IV 02/03/24 18:48 85 ml ONCE ONE Administration Morphine Sulfate 2 mg 02/03/24 17:38 02/03/24 17:45 Morphine Sulfate 2 Mg/Ml Cartridge IVPUSH 02/03/24 17:39 2 mg ONCE ONE Administration Protocol Ondansetron HCl 4 mg 02/03/24 17:38 02/03/24 17:45 Ondansetron Hcl 4 Mg/2 Ml Vial IVPUSH 02/03/24 17:39 4 mg ONCE ONE Administration Medical Decision Making Medical Decision Making [facility] Narrative: 68-year-old female with past medical history as documented above presents for evaluation of left-sided abdominal pain. She is nontender to palpation of the ribs, this does seem quite clear to be her upper abdomen. There was no ecchymosis. She is not anticoagulated. Plan for CT scan of the chest and abdomen pelvis. There is concern for occult pelvic fracture. The scan will be done with IV contrast to help rule out visceral injury as well. Differential Diagnosis Differential Diagnoses: The differential diagnosis associated with the presentation includes Abdominal wall contusion Splenic injury Rib fracture Pneumothorax Pelvic fracture Pelvic hematoma Admission/Observation Consideration of admission/observation: Escalation of care including admission/observation considered Consult Healthcare Provider Management of the patient was discussed with: Hospitalist Lab Data MDM Lab Attestation statement: I reviewed the patient's lab results. No leukocytosis or anemia. Normal platelet count. No electrolyte abnormalities warranting intervention. The patient's glucose is elevated to 133. There was no evidence of DKA 02/03/24 17:42 02/03/24 17:42 Labs: Lab Results 02/03/24 02/03/24 02/03/24 Range/Units 17:42 19:50 20:19 WBC 9.1 (4.8-10.8) X10*3/uL RBC 3.82 L (4.20-5.50) X10*6/uL Hgb 12.7 (12.0-16.0) g/dl Hct 38.0 (37.0-47.0) % MCV 99.5 H (80.0-98.0) fL MCH 33.2 H (27.0-33.0) pg MCHC 33.4 (31.0-35.0) g/dl RDW 14.0 (11.0-16.0) % Plt Count 169 (160-400) X10*3/uL MPV 10.1 (9.4-12.3) fL Immature Gran % (Auto) 0.4 (0.0-0.4) % Neut % (Auto) 81.1 H (45-73) % Lymph % (Auto) 11.1 L (20-40) % [place] % (Auto) 6.7 (2-11) % Eos % (Auto) 0.4 (0-4) % Baso % (Auto) 0.3 (0-2) % Lymph # (Auto) 1.0 L (1.2-4.9) X10*3/uL [place] # (Auto) 0.6 (0.1-1.2) X10*3/uL Eos # (Auto) 0.0 (0.0-0.4) X10*3/uL Baso # (Auto) 0.0 (0.0-0.2) X10*3/uL Abs Immat Gran (auto) 0.04 H (0.00-0.03) X10*3/uL Absolute Neuts (auto) 7.4 (2.0-8.3) x10*3/uL Absolute Nucleated RBC 0.000 (0.0-0.012) X10*3/uL Nucleated RBC % (auto) 0.0 (0.0-0.2) /100WBC PT 14.0 H (10.9-12.4) SEC INR 1.2 H (0.9-1.1) Sodium 135 (135-145) mmol/L Potassium 4.0 (3.3-5.1) mmol/L Chloride 103 (96-108) mmol/L Carbon Dioxide 26 (22-29) mmol/L Anion Gap 10 L (12-20) BUN 18 H (9-16) mg/dL Creatinine 0.78 (0.5-1.4) mg/dL Estim Creat Clear Calc 65.5 Estimated GFR > 60 Random Glucose 133 H (60-115) mg/dL Lactic Acid 1.6 (0.5-2.0) mmol/L Calcium 8.9 (8.4-10.2) mg/dL Total Bilirubin 0.9 (0.0-1.0) mg/dL AST 95 H (5-31) U/L ALT 100 H (0-31) U/L Alkaline Phosphatase 111 (39-117) U/L Troponin I High Sens (<3.5-17.0) ng/L B-Natriuretic Peptide (<100) pg/mL Total Protein 7.0 (6.5-8.0) g/dL Albumin 3.5 (3.5-5.0) g/dL Lipase 26 (8-78) U/L Urine Color Yellow Urine Appearance Clear Urine pH 7.0 (5.0-9.0) Ur Specific [place] >= 1.030 H (1.005-1.025) Urine Protein Trace (Neg-Trace) mg/dL Urine Glucose (UA) Negative (Negative) mg/dL Urine Ketones Negative (Negative) mg/dL Urine Blood Small (1+) H (Negative) Urine Nitrite Negative (Negative) Ur Leukocyte Esterase Moderate (2+) H (Negative) Urine RBC 11-20 H (0-2) /HPF Urine WBC 21-50 H (0-5) /HPF Ur Squamous Epith Cells 3-5 (0-2) /HPF Urine Bacteria None Seen (None Seen) Hyaline Casts 0-2 (0-2) /LPF Influenza Type A (PCR) NEGATIVE (Negative) Influenza Type B (PCR) NEGATIVE (Negative) RSV RNA Qual (PCR) NEGATIVE (Negative) SARS-CoV-2 RNA (RT-PCR) NEGATIVE (Negative) 02/03/24 Range/Units 20:23 WBC (4.8-10.8) X10*3/uL RBC (4.20-5.50) X10*6/uL Hgb (12.0-16.0) g/dl Hct (37.0-47.0) % MCV (80.0-98.0) fL MCH (27.0-33.0) pg MCHC (31.0-35.0) g/dl RDW (11.0-16.0) % Plt Count (160-400) X10*3/uL MPV (9.4-12.3) fL Immature Gran % (Auto) (0.0-0.4) % Neut % (Auto) (45-73) % Lymph % (Auto) (20-40) % [place] % (Auto) (2-11) % Eos % (Auto) (0-4) % Baso % (Auto) (0-2) % Lymph # (Auto) (1.2-4.9) X10*3/uL [place] # (Auto) (0.1-1.2) X10*3/uL Eos # (Auto) (0.0-0.4) X10*3/uL Baso # (Auto) (0.0-0.2) X10*3/uL Abs Immat Gran (auto) (0.00-0.03) X10*3/uL Absolute Neuts (auto) (2.0-8.3) x10*3/uL Absolute Nucleated RBC (0.0-0.012) X10*3/uL Nucleated RBC % (auto) (0.0-0.2) /100WBC PT (10.9-12.4) SEC INR (0.9-1.1) Sodium (135-145) mmol/L Potassium (3.3-5.1) mmol/L Chloride (96-108) mmol/L Carbon Dioxide (22-29) mmol/L Anion Gap (12-20) BUN (9-16) mg/dL Creatinine (0.5-1.4) mg/dL Estim Creat Clear Calc Estimated GFR Random Glucose (60-115) mg/dL Lactic Acid (0.5-2.0) mmol/L Calcium (8.4-10.2) mg/dL Total Bilirubin (0.0-1.0) mg/dL AST (5-31) U/L ALT (0-31) U/L Alkaline Phosphatase (39-117) U/L Troponin I High Sens 36.3 H (<3.5-17.0) ng/L B-Natriuretic Peptide 172 H (<100) pg/mL Total Protein (6.5-8.0) g/dL Albumin (3.5-5.0) g/dL Lipase (8-78) U/L Urine Color Urine Appearance Urine pH (5.0-9.0) Ur Specific [place] (1.005-1.025) Urine Protein (Neg-Trace) mg/dL Urine Glucose (UA) (Negative) mg/dL Urine Ketones (Negative) mg/dL Urine Blood (Negative) Urine Nitrite (Negative) Ur Leukocyte Esterase (Negative) Urine RBC (0-2) /HPF Urine WBC (0-5) /HPF Ur Squamous Epith Cells (0-2) /HPF Urine Bacteria (None Seen) Hyaline Casts (0-2) /LPF Influenza Type A (PCR) (Negative) Influenza Type B (PCR) (Negative) RSV RNA Qual (PCR) (Negative) SARS-CoV-2 RNA (RT-PCR) (Negative) Discharge Plan Discharge Clinical Impression: Pulmonary embolism Patient Disposition: Admitted As Inpatient Prescriptions: No Action fluoxetine 40 mg capsule 1 cap PO DAILY divalproex 250 mg tablet,delayed release (DR/EC) 3 tab PO BID folic acid 1 mg tablet 1 tab PO DAILY pravastatin 20 mg tablet 1 tab PO DAILY phenytoin sodium extended 100 mg capsule 2 tab PO BID magnesium hydroxide [Milk of Magnesia] 400 mg/5 mL Suspension 30 ml PO DAILY PRN (Reason: Constipation) nitroglycerin 0.4 mg Tablet, Sublingual 0.4 mg SUBLINGUAL Q5M PRN (Reason: Chest Pain) Rx Instructions: do not exceed 3 doses per episode amantadine HCl 100 mg tablet 100 mg PO DAILY acetaminophen 325 mg capsule 650 mg PO Q4H PRN (Reason: Pain) guaifenesin 100 mg/5 mL liquid 200 mg PO Q4H PRN (Reason: Cough) loperamide 2 mg tablet 2 mg PO 8XD PRN (Reason: Loose Stool) polyethylene glycol 3350 [Miralax] 17 gram/dose powder 17 g PO DAILY 30 Days Qty: 510 6RF gabapentin 100 mg capsule PO sennosides [senna] 8.6 mg tablet 17.2 mg PO DAILY carbidopa-levodopa 25-100 mg tablet See Rx Instructions PO QID 30 Days Qty: 210 3RF Rx Instructions: 2 tabs in am, and 1.5 tabs tid orally 4 times a day; take w/ a cracker 30 minutes before breakfast, lunch, dinner, and at bedtime tramadol 50 mg tablet 50 mg PO BEDTIME 7 Days Qty: 7 0RF lisinopril 10 mg tablet 10 mg PO DAILY cholecalciferol (vitamin D3) 50 mcg (2,000 unit) capsule 50 mcg PO DAILY cyanocobalamin (vitamin B-12) 500 mcg tablet 500 mcg PO DAILY docusate sodium [Colace] 100 mg capsule 100 mg PO BID bisacodyl 10 mg suppository 10 mg CO DAILY PRN loperamide [Anti-Diarrheal (loperamide)] 2 mg capsule 2 mg PO Q6H PRN magnesium hydroxide [Milk of Magnesia] 400 mg/5 mL suspension 30 ml PO DAILY PRN peg 3350-electrolytes [Golytely] 236-22.74-6.74 -5.86 gram recon soln 240 ml PO Q10M Qty: 4000 0RF Rx Instructions: as per split prep instructions, until fecal effluent is clear Print Language: Bolivian
[2024-02-03] MEDS: iohexoL 350 MG/ML 100 ML INFUS..BTL IV (18:51)
--- NOTE | 2024-02-03 19:00 | PC.NURSE ---
received report from Lisa ABARCA, assume care of pt at this time
[2024-02-03] MEDS: Acetaminophen 325 MG TABLET 650 MG PO (19:50)
[2024-02-03] MEDS: 0.9 % Sodium Chloride 1,000 ML 999 ML IV (19:52)
--- NOTE | 2024-02-03 20:03 | MHC.EDTECH ---
oral temp reading a fever of 100.9, RN made aware. t/w re-entered room to obtain a rectal temp, rectal temp read 103.7. RN made aware again. two sets of blood cultures, lactic acid, and SARS/FLU/RSV swab collected and set down to lab.
--- NOTE | 2024-02-03 20:09 | ECG_ITS ---
Test Reason : left sided cp Blood Pressure : / mmHG Vent. Rate : 094 BPM Atrial Rate : 094 BPM P-R Int : 162 ms QRS Dur : 094 ms QT Int : 388 ms P-R-T Axes : 047 -31 078 degrees QTc Int : 485 ms Normal sinus rhythm Possible Left atrial enlargement Left axis deviation Left ventricular hypertrophy ( R in aVL , Tahir product ) Abnormal ECG When compared with ECG of 04-JUN-2022 08:11, Vent. rate has increased BY 32 BPM Nonspecific T wave abnormality no longer evident in Inferior leads T wave inversion now evident in Lateral leads Referred By: Rishabh Moreno Electronically Signed By:Bill Abdalla
[2024-02-03 20:16] LABS: Lactic Acid 1.6 mmol/L (0.5-2.0)
[2024-02-03 20:29] LABS: Appearance Urine Clear; Color Urine Yellow; Glucose Urine UA Negative (Negative); Leukocyte Esterase Urine Moderate (2+) (Negative); Nitrite Urine Negative (Negative); Specific Gravity - Urine >= 1.030 (1.005-1.025); UMIC TRIGGER UACC YES; Urine Blood Small (1+) (Negative); Urine Ketones Negative (Negative); Urine Protein Trace mg/dL (Neg-Trace)
[2024-02-03 20:34] LABS: Bacteria Urine None Seen (None Seen); Hyaline Casts Urine 0-2 /LPF (0-2); UACC Culture Trigger YES; WBC Urine 21-50 /HPF (0-5)
[2024-02-03 20:39] LABS: Influenza A PCR NEGATIVE (Negative); Influenza B PCR NEGATIVE (Negative); Resp Syncy Virus RNA Qual PCR NEGATIVE (Negative); SARS COV2 PCR INHOUSE NEGATIVE (Negative)
[2024-02-03] MEDS: cefTRIAXone sodium 1 GM VIAL IVPUSH (20:42)
[2024-02-03] MEDS: Doxycycline Hyclate 100 MG in 0.9 % Sodium Chloride 250 ML 166.67 MG IV (20:42)
[2024-02-03 20:52] LABS: B Type Natriuretic Peptide 172 pg/mL (<100); Troponin-I High Sensitivity 36.3 ng/L (<3.5-17.0)
[2024-02-03] MEDS: Enoxaparin Sodium 80 MG/0.8 ML SYRINGE 70 MG SUBCUT (21:39)
--- NOTE | 2024-02-03 21:53 | PM.IMHP ---
History of Present Illness Date of Service: 02/03/24 Attending physician on admission: Adam Mena Chief Complaint: Right upper quadrant pain Cielo Thomas is a delightful 68 years old woman with past medical history significant for Parkinson's disease, major depressive disorder, type 2 diabetes mellitus, epilepsy, HFpEF, mild , essential hypertension and old CVA was brought to the emergency department by ambulance due to severe left lower quadrant that has been getting worse over the last several days. The patient recently visited the ED after she sustained a fall last Tuesday, she tripped we are rug, receiving frontal head trauma. She denied receiving trauma to the left ribcage. At her assisted living facility, she was found to have temperature 100.9 degrees and blood pressure 190/84. At that time, in the ED she had a head CT scan which showed no acute intracranial pathology. Pain increases with deep inspiration and sneezing. Patient denied any associated nausea, vomiting, diarrhea, fevers or chills. She denied any acute urinary symptoms such as burning with urination or bloody urine. She denied alcohol abuse, illicit drug use or tobacco smoking. In the ED, was found to have normal vital signs except for temperature of 103.7 (max). Blood workup showed no leukocytosis or lactic acidosis. There are no electrolyte imbalances. Transaminases are mildly elevated, troponin is 36.3 and BNP 172. Urinalysis consistent with urinary tract infection. Serology for influenza, RSV and COVID is negative. Chest, abdominal pelvis CT scan with IV contrast showed prominent pulmonary emboli throughout the left lung: Posterior lingula and left upper lobe, question subsegmental emboli in the right lower lobe and middle lobe; possible contusion, pneumonia and or aspiration as well as small pleural effusion and possible pulmonary infarct. It also showed bilateral renal cysts, myositis and prominent ovarian veins. ECG showed normal sinus rhythm with a heart rate of 94 beats per minutes with left acid deviation. ED tx: Lovenox 70 mg subQ, ceftriaxone 1 g IV, doxycycline 100 mg IV, NS 1 L falx, acetaminophen 650 mg p.o., Zofran 4 mg IV, morphine 2 mg IV Review of Systems Review of Systems: All 12 systems were reviewed and normal except as noted in HPI. [facility] Medical History Parkinson's disease Hx of fracture of femur History of alcohol abuse Diabetes History of encephalopathy History of traumatic subdural hematoma Tobacco dependence Atherosclerotic cardiovascular disease Non-rheumatic aortic stenosis Preoperative cardiovascular examination Myocardial infarct History of coronary artery disease Seizure disorder Hypertension Fall Family History Mother No problems noted. Father No problems noted. Surgical History History of hip surgery Social History Household Members: Other [facility]: former Patient Tobacco Use Status: Current everyday Tobacco user Tobacco use type: Cigarette Cigarette Packs Per Day: 1 Cigarettes Per Day: 5 Smoked in Last 30 Days: Yes Second Hand Smoke Exposure: No Use of substances other than those prescribed or required for medical reasons: No Advance Directives: Yes Advance Directives on File: Yes Advance Directives Date on File: 01/26/21 service: No Current occupational status: disabled Current occupation: [employer] Allergies Allergy/AdvReac Type Severity Reaction Status Date / Time azithromycin [AZITHROMYCIN] Allergy Unknown HIVES Verified 01/29/24 01:00 Macrolide Antibiotics Allergy Unknown Unknown Verified 02/03/24 17:28 Active Medications: Current Medications Acetaminophen (Acetaminophen 325 Mg Tablet) 975 mg PO Q6H PRN PRN Reason: Pain, Mild (Pain Scale 1-3), fever or headache Calcium Carbonate (Calcium Carbonate 750 Mg Tab.Chew) 750 mg PO Q4H PRN PRN Reason: Heartburn Ceftriaxone Sodium (Ceftriaxone Sodium 1 Gm Vial) 1 gm IVPUSH Q24H [facility] Enoxaparin Sodium (Enoxaparin Sodium 80 Mg/0.8 Ml Syringe) 70 mg SUBCUT Q12H [facility] Doxycycline Hyclate 100 mg/ (Sodium Chloride) 250 mls @ 166.67 mls/hr IV ONCE ONE Stop: 02/03/24 22:02 Last Admin: 02/03/24 20:42 Dose: 166.67 mls/hr Doxycycline Hyclate 100 mg/ (Sodium Chloride) 250 mls @ 166.67 mls/hr IV Q12H [facility] Magnesium Hydroxide (Milk Of Magnesia 30 Ml Oral.Susp) 30 ml PO DAILY PRN PRN Reason: Constipation Melatonin (Melatonin 3 Mg Tablet) 6 mg PO BEDTIME PRN PRN Reason: Insomnia Morphine Sulfate (Morphine Sulfate 2 Mg/Ml Cartridge) 2 mg IVPUSH Q3H PRN; Protocol PRN Reason: Pain, Severe (Pain Scale 7-10) Oxycodone HCl (Oxycodone Hcl Immed Release 5 Mg Tablet) 5 mg PO Q6H PRN PRN Reason: Pain, Moderate(Pain Scale 4-6) Sodium Chloride (0.9 % Sodium Chloride Flush 3 Ml Syringe) 3 [facility] Medications ?Medication ?Instructions ?Recorded ?Confirmed ?Last Taken ?Type divalproex 250 mg tablet,delayed 3 tab PO BID 01/26/21 02/03/24 12/09/22 History release fluoxetine 40 mg capsule 1 cap PO DAILY 01/26/21 02/03/24 12/09/22 History folic acid 1 mg tablet 1 tab PO DAILY 01/26/21 02/03/24 12/09/22 History pravastatin 20 mg tablet 1 tab PO BEDTIME 01/26/21 02/03/24 12/09/22 History acetaminophen 325 mg capsule 650 mg PO Q6H PRN Pain 05/18/22 02/03/24 Unknown History guaifenesin 100 mg/5 mL oral liquid 200 mg PO Q4H PRN Cough 05/18/22 02/03/24 Unknown History nitroglycerin 0.4 mg sublingual 0.4 mg sublingual Q5M PRN Chest 06/03/22 02/03/24 Unknown History tablet Pain phenytoin sodium extended 100 mg 2 tab PO BID 06/03/22 02/03/24 12/09/22 History capsule amantadine HCl 100 mg tablet 100 mg PO DAILY 12/09/22 02/03/24 12/09/22 History gabapentin 100 mg capsule 100 mg PO BID 07/28/23 02/03/24 Unknown History sennosides 8.6 mg tablet (senna) 17.2 mg PO BEDTIME 07/28/23 02/03/24 Unknown History bisacodyl 10 mg rectal suppository 10 mg OH DAILY PRN Constipation 01/11/24 02/03/24 Unknown History cholecalciferol (vitamin D3) 50 50 mcg PO DAILY 01/11/24 02/03/24 Unknown History mcg (2,000 unit) capsule cyanocobalamin (vitamin B-12) 500 500 mcg PO DAILY 01/11/24 02/03/24 Unknown History mcg tablet docusate sodium 100 mg capsule 100 mg PO BID 01/11/24 02/03/24 Unknown History (Colace) lisinopril 10 mg tablet 10 mg PO DAILY 01/11/24 02/03/24 Unknown History loperamide 2 mg capsule 2 mg PO Q6H PRN Loose Stool 01/11/24 02/03/24 Unknown History (Anti-Diarrheal (loperamide)) magnesium hydroxide 400 mg/5 mL 30 ml PO DAILY PRN Constipation 01/11/24 02/03/24 Unknown History oral suspension (Milk of Magnesia) mirtazapine 15 mg tablet 15 mg PO BEDTIME 02/03/24 02/03/24 Unknown History Physical Exam Vital Signs and Narrative: Vital Signs: Last Vital Signs Temp 98.7 F 02/03/24 21:42 Pulse 89 02/03/24 21:42 Resp 17 02/03/24 21:42 BP 130/59 L 02/03/24 21:42 Pulse Ox 92 02/03/24 21:42 O2 Del Method Room Air 02/03/24 21:42 BMI result Body Mass Index 26.6 Constitutional - Awake and Alert, No apparent distress. Cooperative. Pleasant. HEENT - PER, EOMI Heart - RRR, high-pitched holosystolic murmur best heard in the right upper parasternal border. Lungs - Normal lung expansion, Normal respiratory effort, No respiratory distress. No tachypnea. Left lower base crackles. Right lower lobe: Clear. No wheezing or rhonchi. Thorax - No bruising or lesions. Abdomen - NT / ND; +BS; No rebound or guarding - No CVA tenderness Extremities - no calf tenderness bilaterally, no swelling Musculoskeletal - Normal inspection, normal ROM Skin - Warm/Dry Neurological - Alert & oriented x3. No focal weakness grossly noted. Normal speech. Psychological - Appropriate affect Results Labs 02/03/24 17:42 02/03/24 17:42 Labs: Laboratory Results - last 24 hr 02/03/24 02/03/24 02/03/24 17:42 19:50 20:19 MCV 99.5 H MCH 33.2 H MCHC 33.4 RDW 14.0 Plt Count 169 MPV 10.1 Immature Gran % (Auto) 0.4 Neut % (Auto) 81.1 H Lymph % (Auto) 11.1 L [place] % (Auto) 6.7 Eos % (Auto) 0.4 Baso % (Auto) 0.3 Lymph # (Auto) 1.0 L [place] # (Auto) 0.6 Eos # (Auto) 0.0 Baso # (Auto) 0.0 Abs Immat Gran (auto) 0.04 H Absolute Neuts (auto) 7.4 Absolute Nucleated RBC 0.000 Nucleated RBC % (auto) 0.0 PT 14.0 H INR 1.2 H Anion Gap 10 L Estim Creat Clear Calc 65.5 Estimated GFR > 60 Random Glucose 133 H Lactic Acid 1.6 Calcium 8.9 Total Bilirubin 0.9 AST 95 H ALT 100 H Alkaline Phosphatase 111 Troponin I High Sens B-Natriuretic Peptide Total Protein 7.0 Albumin 3.5 Lipase 26 Urine Color Yellow Urine Appearance Clear Urine pH 7.0 Ur Specific [place] >= 1.030 H Urine Protein Trace Urine Glucose (UA) Negative Urine Ketones Negative Urine Blood Small (1+) H Urine Nitrite Negative Ur Leukocyte Esterase Moderate (2+) H Urine RBC 11-20 H Urine WBC 21-50 H Ur Squamous Epith Cells 3-5 Urine Bacteria None Seen Hyaline Casts 0-2 Influenza Type A (PCR) NEGATIVE Influenza Type B (PCR) NEGATIVE RSV RNA Qual (PCR) NEGATIVE SARS-CoV-2 RNA (RT-PCR) NEGATIVE 02/03/24 20:23 MCV MCH MCHC RDW Plt Count MPV Immature Gran % (Auto) Neut % (Auto) Lymph % (Auto) [place] % (Auto) Eos % (Auto) Baso % (Auto) Lymph # (Auto) [place] # (Auto) Eos # (Auto) Baso # (Auto) Abs Immat Gran (auto) Absolute Neuts (auto) Absolute Nucleated RBC Nucleated RBC % (auto) PT INR Anion Gap Estim Creat Clear Calc Estimated GFR Random Glucose Lactic Acid Calcium Total Bilirubin AST ALT Alkaline Phosphatase Troponin I High Sens 36.3 H B-Natriuretic Peptide 172 H Total Protein Albumin Lipase Urine Color Urine Appearance Urine pH Ur Specific [place] Urine Protein Urine Glucose (UA) Urine Ketones Urine Blood Urine Nitrite Ur Leukocyte Esterase Urine RBC Urine WBC Ur Squamous Epith Cells Urine Bacteria Hyaline Casts Influenza Type A (PCR) Influenza Type B (PCR) RSV RNA Qual (PCR) SARS-CoV-2 RNA (RT-PCR) Imaging Radiologist's Impressions: Impressions Abdomen/Pelvis CT 02/03/24 18:29 IMPRESSION: 1. There are prominent pulmonary emboli throughout the left lower lobe, and posterior lingula and left upper lobe. Questionable subsegmental emboli in the right lower lobe and middle lobe. 2. Streaky and airspace opacities at the left lung base could represent contusion in the setting of trauma, as well as pneumonia and/or aspiration. This may also represent a pulmonary infarct. Small left pleural effusion. 3. No acute traumatic injury to the abdomen or pelvis. 4. Mild ascites, similar to the previous study. 5. Bilateral renal cysts and hypoattenuating lesions that are too small to characterize. Some of these are new since 10/12/2017 and are indeterminate. These could be further evaluated with renal protocol CT pre and postcontrast. 6. Prominent ovarian veins extending into the pelvis on the left suggesting pelvic congestion syndrome. This critical result was discussed with Dr. Moreno at 8:10 PM on 02/03/2024 and it was ascertained that the content and urgency of the report was understood at the time of direct communication. Electronically signed by: Narinder Burns MD 02/03/2024 08:10 PM [facility] Chest CT 02/03/24 18:29 IMPRESSION: 1. There are prominent pulmonary emboli throughout the left lower lobe, and posterior lingula and left upper lobe. Questionable subsegmental emboli in the right lower lobe and middle lobe. 2. Streaky and airspace opacities at the left lung base could represent contusion in the setting of trauma, as well as pneumonia and/or aspiration. This may also represent a pulmonary infarct. Small left pleural effusion. 3. No acute traumatic injury to the abdomen or pelvis. 4. Mild ascites, similar to the previous study. 5. Bilateral renal cysts and hypoattenuating lesions that are too small to characterize. Some of these are new since 10/12/2017 and are indeterminate. These could be further evaluated with renal protocol CT pre and postcontrast. 6. Prominent ovarian veins extending into the pelvis on the left suggesting pelvic congestion syndrome. This critical result was discussed with Dr. Moreno at 8:10 PM on 02/03/2024 and it was ascertained that the content and urgency of the report was understood at the time of direct communication. Electronically signed by: Narinder Burns MD 02/03/2024 08:10 PM [facility] Assessment and Plan (1) Pulmonary embolism: Qualifiers: Pulmonary embolism type: unspecified Chronicity: acute Acute cor pulmonale presence: unspecified Qualified Code(s): I26.99 - Other pulmonary embolism without acute cor pulmonale Status: Acute (2) Pneumonia: Qualifiers: Pneumonia type: due to unspecified organism Laterality: left Lung location: upper lobe of lung Qualified Code(s): J18.9 - Pneumonia, unspecified organism Status: Acute (3) Parkinson's disease without dyskinesia: Qualifiers: Fluctuating manifestations: unspecified whether manifestations fluctuate Qualified Code(s): G20.A1 - Parkinson's disease without dyskinesia, without mention of fluctuations Status: Acute (4) Seizure: Status: Acute Plan Cielo Thomas is a 68 y/o woman admitted with: Pulmonary embolism (unprovoked) associated with possible associated pneumonia;. Admit to hospitalist service. Telemetry. Pulse oximetry. Supplemental O2 to keep sats > 90% Continue anticoagulation with Lovenox 70 mg subQ every 12 hours. Continue empiric IV antibiotic therapy with doxycycline and ceftriaxone. Check TTE. Blood cultures obtained -will follow results. Mildly elevated transaminases. ? Statin-induced. Continue to monitor. Elevated troponin, likely secondary to acute PE. Continue to monitor. Major depressive disorder. Continue fluoxetine. Essential hypertension. Continue lisinopril. Epilepsy. Continue divalproex and phenytoin. Parkinson's disease. Continue amantadine. Not taking carbidopa/levodopa. Mild aortic stenosis (echo 2020). Will recheck TTE. Hx of HFpEF. Not in acute exacerbation. Old CVA. Continue statin. History of type 2 diabetes mellitus with hypoglycemia. Not taking home meds for this. Blood glucose checks before meals at bedtime. Insulin sliding scale. Diabetic diet. Check hemoglobin A1c. DVT prophylaxis: Lovenox Code status: Full (according to paperwork from assisted living facility). She will need hospitalization for at least 2 midnights for PE associated with possible pneumonia treatment with anticoagulation therapy subcut every 12 tablets and empiric IV antibiotic therapy. Quality Stroke Does the patient have a stroke diagnosis?: No VTE Prior VTE?: No VTE Risk Level:: Medical - moderate - high VTE Device Contraindication: Treatment Not Indicated VTE Drug Contraindication: N/A - Med Ordered
--- NOTE | 2024-02-03 22:39 | PHA.MEDREC ---
Addendum entered by Roger Anguiano RPh 02/03/24 22:47: Med rec reviewed Original Note: Pharmacy Consult ? Medication Reconciliation Pharmacy has completed the medication reconciliation. Confirmed medications with list faxed over from [facility].
[2024-02-03] MEDS: Mirtazapine 15 MG TABLET PO (22:48)
[2024-02-03] MEDS: Phenytoin Sodium Extended 100 MG CAPSULE 200 MG PO (22:48)
[2024-02-03] MEDS: Divalproex Sodium ER 250 MG TAB.ER.24H PO (22:48)
[2024-02-04] VITALS (8 sets, daily range): BP systolic 142–169; BP diastolic 64–79; PULSE 84–96; RESP 16–22; TEMP 36.4–37.9; O2SAT 92–96
[2024-02-04 00:20] LABS: Troponin-I High Sensitivity 39.3 ng/L (<3.5-17.0)
[2024-02-04] MEDS: Morphine Sulfate 2 MG/ML CARTRIDGE IVPUSH ×2 (05:08→23:36)
[2024-02-04 07:54] LABS: MANUAL DIFF FLAG NO
[2024-02-04 07:59] LABS: Basophils Percent Auto 0.3 % (0-2); Eosinophils Absolute Auto 0.1 X10*3/uL (0.0-0.4); Eosinophils Percent Auto 0.9 % (0-4); Hematocrit 33.6 % (37.0-47.0); Hemoglobin 11.1 g/dl (12.0-16.0); Imm Gran Abs Auto 0.08 X10*3/uL (0.00-0.03); Imm Gran Pct Auto 0.7 % (0.0-0.4); Lymphocytes Absolute Auto 1.2 X10*3/uL (1.2-4.9); Lymphocytes Percent Auto 10.4 % (20-40); Mean Corpuscular Hemoglobin 33.4 pg (27.0-33.0); Mean Corpuscular Volume 101.2 fL (80.0-98.0); Mean Platelet Volume 10.6 fL (9.4-12.3); Monocytes Percent Auto 8.6 % (2-11); Neutrophils Absolute Auto 8.8 x10*3/uL (2.0-8.3); Neutrophils Percent Auto 79.1 % (45-73); Platelet Count 155 X10*3/uL (160-400); Red Blood Count 3.32 X10*6/uL (4.20-5.50); Red Cell Distribution Width 13.8 % (11.0-16.0); White Blood Count 11.1 X10*3/uL (4.8-10.8)
[2024-02-04 08:09] LABS: Glucose, Whole Blood 95 mg/dL (60-115)
[2024-02-04 08:11] LABS: Estimated Average Glucose 105 mg/dL; Hemoglobin A1C 102.5962 umol/L; Hemoglobin A1c % 5.3 % (<6.0); Total Hemoglobin (HGBA1C) 2968.2371 umol/L
[2024-02-04 08:18] LABS: Phenytoin Dilantin 9.2 ug/mL (10.0-20.0); Valproate 23.7 mcg/mL (50.0-100.0)
[2024-02-04 08:19] LABS: Anion Gap 15 (12-20); Blood Urea Nitrogen 15 mg/dL (9-16); Calcium 8.3 mg/dL (8.4-10.2); Carbon Dioxide 21 mmol/L (22-29); Chloride 107 mmol/L (96-108); Creatinine Clr Calc Pharmacy 77.4; Estimated Glomerular Filt Rate > 60; Glucose Random 99 mg/dL (60-115); Potassium 3.9 mmol/L (3.3-5.1); Sodium 139 mmol/L (135-145)
[2024-02-04 08:21] LABS: Troponin-I High Sensitivity 36.7 ng/L (<3.5-17.0)
--- NOTE | 2024-02-04 09:00 | MHC.CM.PN ---
IMM 02/03. Pt self-care, lives at [facility] (has resided there for 4 years). Pt states there is a nurse to give her medications at the [facility] and someone to help with laundry, but other than that she cares for herself, and has no DME. Pt states she will need assistance with transportation home at discharge. HCP on file and verified. PCP: Dr. Glen Pugh
[2024-02-04] MEDS: cefTRIAXone sodium 1 GM VIAL IVPUSH (09:01)
[2024-02-04] MEDS: Doxycycline Hyclate 100 MG in 0.9 % Sodium Chloride 250 ML 166.67 MG IV ×2 (09:01→21:34)
[2024-02-04] MEDS: 0.9 % Sodium Chloride Flush 3 ML SYRINGE IVFLUSH ×3 (09:01→23:35)
[2024-02-04 11:31] LABS: Glucose, Whole Blood 155 mg/dL (60-115)
--- NOTE | 2024-02-04 15:02 | HO.PM.IMPN ---
Subjective Subjective Date of Service: 02/04/24 Interval History: seen and evaluated this morning feels little beter denies chest pain no reported overnight events Review of Systems Review of Systems: Yes all other systems are reviewed and are negative Physical Exam Vital Signs: Vital Signs: Last Vital Signs Temp 97.6 F 02/04/24 11:09 Pulse 84 02/04/24 11:09 Resp 18 02/04/24 11:09 BP 147/67 H 02/04/24 11:09 Pulse Ox 92 02/04/24 11:09 O2 Del Method Room Air 02/04/24 11:09 BMI result Body Mass Index 26.6 Const: Other: Constitutional : Awake, interactive, not in distress Neck : Normal inspection, Supple Cardiovascular : RRR, no JVP, no lower extremity edema Respiratory : good bilateral air entry, basal fine crackles Gastrointestinal: soft, lax, Normal bowel sounds, Non tender Skin : Warm, Dry Neurological : Alert & oriented x3, No focal deficit Objective Data Active Medications Acetaminophen (Acetaminophen 325 Mg Tablet) 975 mg PO Q6H PRN PRN Reason: Pain, Mild (Pain Scale 1-3), fever or headache Calcium Carbonate (Calcium Carbonate 750 Mg Tab.Chew) 750 mg PO Q4H PRN PRN Reason: Heartburn Ceftriaxone Sodium (Ceftriaxone Sodium 1 Gm Vial) 1 gm IVPUSH Q24H [facility] Last Admin: 02/04/24 09:01 Dose: 1 gm Documented By: TWILA Enoxaparin Sodium (Enoxaparin Sodium 80 Mg/0.8 Ml Syringe) 70 mg SUBCUT Q12H [facility] Doxycycline Hyclate 100 mg/ (Sodium Chloride) 250 mls @ 166.67 mls/hr IV Q12H [facility] Last Infusion: 02/04/24 11:21 Dose: Infused Documented By: TWILA Magnesium Hydroxide (Milk Of Magnesia 30 Ml Oral.Susp) 30 ml PO DAILY PRN PRN Reason: Constipation Melatonin (Melatonin 3 Mg Tablet) 6 mg PO BEDTIME PRN PRN Reason: Insomnia Morphine Sulfate (Morphine Sulfate 2 Mg/Ml Cartridge) 2 mg IVPUSH Q3H PRN; Protocol PRN Reason: Pain, Severe (Pain Scale 7-10) Last Admin: 02/04/24 05:08 Dose: 2 mg Documented By: ANTOIC Oxycodone HCl (Oxycodone Hcl Immed Release 5 Mg Tablet) 5 mg PO Q6H PRN PRN Reason: Pain, Moderate(Pain Scale 4-6) Sodium Chloride (0.9 % Sodium Chloride Flush 3 Ml Syringe) 3 ml IVFLUSH QSHIFT [facility] Last Admin: 02/04/24 09:01 Dose: 3 ml Documented By: TWILA Labs 02/04/24 07:18 02/04/24 07:18 Labs: Laboratory Results - last 24 hr 02/03/24 02/03/24 02/03/24 17:42 19:50 20:19 MCV 99.5 H MCH 33.2 H MCHC 33.4 RDW 14.0 Plt Count 169 MPV 10.1 Immature Gran % (Auto) 0.4 Neut % (Auto) 81.1 H Lymph % (Auto) 11.1 L Frio % (Auto) 6.7 Eos % (Auto) 0.4 Baso % (Auto) 0.3 Lymph # (Auto) 1.0 L Frio # (Auto) 0.6 Eos # (Auto) 0.0 Baso # (Auto) 0.0 Abs Immat Gran (auto) 0.04 H Absolute Neuts (auto) 7.4 Absolute Nucleated RBC 0.000 Nucleated RBC % (auto) 0.0 PT 14.0 H INR 1.2 H Anion Gap 10 L Estim Creat Clear Calc 65.5 Estimated GFR > 60 POC Glucose Random Glucose 133 H Estimat Average Glucose Hemoglobin A1c % Lactic Acid 1.6 Calcium 8.9 Total Bilirubin 0.9 AST 95 H ALT 100 H Alkaline Phosphatase 111 Troponin I High Sens B-Natriuretic Peptide Total Protein 7.0 Albumin 3.5 Lipase 26 Urine Color Yellow Urine Appearance Clear Urine pH 7.0 Ur Specific [place] >= 1.030 H Urine Protein Trace Urine Glucose (UA) Negative Urine Ketones Negative Urine Blood Small (1+) H Urine Nitrite Negative Ur Leukocyte Esterase Moderate (2+) H Urine RBC 11-20 H Urine WBC 21-50 H Ur Squamous Epith Cells 3-5 Urine Bacteria None Seen Hyaline Casts 0-2 Phenytoin Valproic Acid Influenza Type A (PCR) NEGATIVE Influenza Type B (PCR) NEGATIVE RSV RNA Qual (PCR) NEGATIVE SARS-CoV-2 RNA (RT-PCR) NEGATIVE 02/03/24 02/03/24 02/04/24 20:23 23:38 07:18 MCV 101.2 H MCH 33.4 H MCHC 33.0 RDW 13.8 Plt Count 155 L MPV 10.6 Immature Gran % (Auto) 0.7 H Neut % (Auto) 79.1 H Lymph % (Auto) 10.4 L Frio % (Auto) 8.6 Eos % (Auto) 0.9 Baso % (Auto) 0.3 Lymph # (Auto) 1.2 Frio # (Auto) 1.0 Eos # (Auto) 0.1 Baso # (Auto) 0.0 Abs Immat Gran (auto) 0.08 H Absolute Neuts (auto) 8.8 H Absolute Nucleated RBC 0.000 Nucleated RBC % (auto) 0.0 PT INR Anion Gap 15 Estim Creat Clear Calc 77.4 Estimated GFR > 60 POC Glucose Random Glucose 99 Estimat Average Glucose 105 Hemoglobin A1c % 5.3 Lactic Acid Calcium 8.3 L D Total Bilirubin AST ALT Alkaline Phosphatase Troponin I High Sens 36.3 H 39.3 H 36.7 H B-Natriuretic Peptide 172 H Total Protein Albumin Lipase Urine Color Urine Appearance Urine pH Ur Specific [place] Urine Protein Urine Glucose (UA) Urine Ketones Urine Blood Urine Nitrite Ur Leukocyte Esterase Urine RBC Urine WBC Ur Squamous Epith Cells Urine Bacteria Hyaline Casts Phenytoin 9.2 L Valproic Acid 23.7 L Influenza Type A (PCR) Influenza Type B (PCR) RSV RNA Qual (PCR) SARS-CoV-2 RNA (RT-PCR) 02/04/24 02/04/24 07:52 11:14 MCV MCH MCHC RDW Plt Count MPV Immature Gran % (Auto) Neut % (Auto) Lymph % (Auto) Frio % (Auto) Eos % (Auto) Baso % (Auto) Lymph # (Auto) Frio # (Auto) Eos # (Auto) Baso # (Auto) Abs Immat Gran (auto) Absolute Neuts (auto) Absolute Nucleated RBC Nucleated RBC % (auto) PT INR Anion Gap Estim Creat Clear Calc Estimated GFR POC Glucose 95 155 H Random Glucose Estimat Average Glucose Hemoglobin A1c % Lactic Acid Calcium Total Bilirubin AST ALT Alkaline Phosphatase Troponin I High Sens B-Natriuretic Peptide Total Protein Albumin Lipase Urine Color Urine Appearance Urine pH Ur Specific [place] Urine Protein Urine Glucose (UA) Urine Ketones Urine Blood Urine Nitrite Ur Leukocyte Esterase Urine RBC Urine WBC Ur Squamous Epith Cells Urine Bacteria Hyaline Casts Phenytoin Valproic Acid Influenza Type A (PCR) Influenza Type B (PCR) RSV RNA Qual (PCR) SARS-CoV-2 RNA (RT-PCR) Microbiology Microbiology Results: Microbiology 02/03/24 Unknown Urine Culture - Preliminary Urine clean catch - Clean Catch Midstream Culture too young to evaluate. Assessment and Plan (1) Pneumonia: Status: Acute (2) Pulmonary embolism: Status: Acute Plan Cielo Thomas is a 68 y/o woman admitted with: Pulmonary embolism (unprovoked) associated with pneumonia Feels better Continue Lovenox 70 mg subQ every 12 hours. empiric IV antibiotic therapy with doxycycline and ceftriaxone Check TTE Blood cultures pending Mildly elevated transaminases. Statin-induced? Continue to monitor. Elevated troponin, likely secondary to acute PE. Continue to monitor. Major depressive disorder. Continue fluoxetine. Essential hypertension. Continue lisinopril. Epilepsy. Continue divalproex and phenytoin. Parkinson's disease. Continue amantadine. Not taking carbidopa/levodopa. Mild aortic stenosis (echo 2020). Will recheck TTE. Hx of HFpEF. Not in acute exacerbation. Old CVA. Continue statin. History of type 2 diabetes mellitus with hypoglycemia. A1c of 5.3. DC POC Insulin sliding scale. DVT prophylaxis: Lovenox Code status: Full (according to paperwork from assisted living facility). She will need hospitalization for at least 2 midnights for PE associated with possible pneumonia treatment with anticoagulation therapy subcut every 12 tablets and empiric IV antibiotic therapy. Quality Stroke Does the patient have a stroke diagnosis?: No VTE Prior VTE?: No VTE Risk Level:: Medical - moderate - high VTE Device Contraindication: Treatment Not Indicated VTE Drug Contraindication: N/A - Med Ordered
[2024-02-04 16:30] LABS: Glucose, Whole Blood 150 mg/dL (60-115)
[2024-02-04] MEDS: Enoxaparin Sodium 80 MG/0.8 ML SYRINGE 70 MG SUBCUT (21:35)
[2024-02-04] MEDS: Mirtazapine 15 MG TABLET PO (21:36)
[2024-02-04] MEDS: Phenytoin Sodium Extended 100 MG CAPSULE 200 MG PO (21:36)
[2024-02-04] MEDS: Gabapentin 100 MG CAPSULE PO (21:36)
[2024-02-04] MEDS: Divalproex Sodium 250 MG TABLET.DR 750 MG PO (21:36)
[2024-02-04] MEDS: Sennosides 8.6 MG TABLET 17.2 MG PO (21:36)
[2024-02-04] MEDS: Pravastatin Sodium 20 MG TABLET PO (21:36)
[2024-02-04] MEDS: Docusate Sodium 100 MG CAPSULE PO (21:37)
[2024-02-04 21:40] LABS: INTERNATIONAL NORM RATIO 1.3 (0.9-1.1)
[2024-02-05] VITALS (7 sets, daily range): BP systolic 124–170; BP diastolic 58–77; PULSE 81–90; RESP 12–18; TEMP 36.5–37.5; O2SAT 92–94
[2024-02-05 07:18] LABS: Glucose, Whole Blood 101 mg/dL (60-115)
[2024-02-05] MEDS: Doxycycline Hyclate 100 MG in 0.9 % Sodium Chloride 250 ML 166.67 MG IV ×2 (08:59→22:08)
[2024-02-05] MEDS: cefTRIAXone sodium 1 GM VIAL IVPUSH (09:00)
[2024-02-05] MEDS: Enoxaparin Sodium 80 MG/0.8 ML SYRINGE 70 MG SUBCUT (09:01)
[2024-02-05] MEDS: 0.9 % Sodium Chloride Flush 3 ML SYRINGE IVFLUSH ×2 (09:01→18:40)
[2024-02-05] MEDS: lisinopriL 10 MG TABLET PO (09:02)
[2024-02-05] MEDS: Docusate Sodium 100 MG CAPSULE PO ×2 (09:02→22:10)
[2024-02-05] MEDS: amantadine HCL 100 MG CAPSULE PO (09:03)
[2024-02-05] MEDS: FLUoxetine HCl 20 MG CAPSULE 40 MG PO (09:03)
[2024-02-05] MEDS: Cholecalciferol (Vitamin D3) 25 MCG TABLET 50 MCG PO (09:03)
[2024-02-05] MEDS: Gabapentin 100 MG CAPSULE PO ×2 (09:03→22:09)
[2024-02-05] MEDS: Folic Acid 1 MG TABLET PO (09:03)
[2024-02-05] MEDS: Cyanocobalamin (Vitamin B-12) 500 MCG TABLET PO (09:04)
[2024-02-05] MEDS: Phenytoin Sodium Extended 100 MG CAPSULE 200 MG PO ×2 (09:04→22:09)
[2024-02-05] MEDS: Divalproex Sodium 250 MG TABLET.DR 750 MG PO ×2 (09:04→22:09)
[2024-02-05] MEDS: oxyCODONE HCl Immed Release 5 MG TABLET PO (09:15)
[2024-02-05 11:49] LABS: Glucose, Whole Blood 124 mg/dL (60-115)
[2024-02-05] MEDS: polyethylene glycoL 3350 17 GM POWD.PACK PO (12:05)
--- NOTE | 2024-02-05 13:14 | P.PNIM_ITS ---
Subjective Subjective Date of Service: 02/05/24 Interval History: seen and evaluated this morning feels little beter denies chest pain no reported overnight events Physical Exam 2 Vital Signs: Vital Signs: Last Vital Signs Temp 97.8 F 02/05/24 11:53 Pulse 86 02/05/24 11:53 Resp 14 02/05/24 11:53 BP 133/64 02/05/24 11:53 Pulse Ox 92 02/05/24 11:53 O2 Del Method Room Air 02/05/24 11:53 BMI result Body Mass Index 26.6 Const: Other: Constitutional : Awake, interactive, not in distress Neck : Normal inspection, Supple Cardiovascular : RRR, no JVP, no lower extremity edema Respiratory : good bilateral air entry, basal fine crackles Gastrointestinal: soft, lax, Normal bowel sounds, Non tender Skin : Warm, Dry Neurological : Alert & oriented x3, No focal deficit Objective Data Active Medications Acetaminophen (Acetaminophen 325 Mg Tablet) 975 mg PO Q6H PRN PRN Reason: Pain, Mild (Pain Scale 1-3), fever or headache Al Hydroxide/Mg Hydroxide (Magnesium Hydrox/Alum Hydrox 30 Ml Oral.Susp) 30 ml PO DAILY PRN PRN Reason: GI Distress Amantadine HCl (Amantadine Hcl 100 Mg Capsule) 100 mg PO DAILY [facility] Last Admin: 02/05/24 09:03 Dose: 100 mg Documented By: TWILA Bisacodyl (Bisacodyl 10 Mg Supp.Rect) 10 mg [place] DAILY PRN PRN Reason: Constipation Calcium Carbonate (Calcium Carbonate 750 Mg Tab.Chew) 750 mg PO Q4H PRN PRN Reason: Heartburn Ceftriaxone Sodium (Ceftriaxone Sodium 1 Gm Vial) 1 gm IVPUSH Q24H [facility] Last Admin: 02/05/24 09:00 Dose: 1 gm Documented By: TWILA Cyanocobalamin (Cyanocobalamin (Vitamin B-12) 500 Mcg Tablet) 500 mcg PO DAILY [facility] Last Admin: 02/05/24 09:04 Dose: 500 mcg Documented By: TWILA Divalproex Sodium (Divalproex Sodium 250 Mg Tablet.Dr) 750 mg PO BID [facility] Last Admin: 02/05/24 09:04 Dose: 750 mg Documented By: TWILA Docusate Sodium (Docusate Sodium 100 Mg Capsule) 100 mg PO BID [facility] Last Admin: 02/05/24 09:02 Dose: 100 mg Documented By: TWILA Enoxaparin Sodium (Enoxaparin Sodium 80 Mg/0.8 Ml Syringe) 70 mg SUBCUT Q12H [facility] Last Admin: 02/05/24 09:01 Dose: 70 mg Documented By: TWILA Fluoxetine HCl (Fluoxetine Hcl 20 Mg Capsule) 40 mg PO DAILY [facility] Last Admin: 02/05/24 09:03 Dose: 40 mg Documented By: TWILA Folic Acid (Folic Acid 1 Mg Tablet) 1 mg PO DAILY [facility] Last Admin: 02/05/24 09:03 Dose: 1 mg Documented By: TWILA Gabapentin (Gabapentin 100 Mg Capsule) 100 mg PO BID [facility] Last Admin: 02/05/24 09:03 Dose: 100 mg Documented By: TWILA Guaifenesin (Guaifenesin 200 Mg/10 Ml 10 Ml Liquid) 10 ml PO Q4H PRN PRN Reason: Cough Doxycycline Hyclate 100 mg/ (Sodium Chloride) 250 mls @ 166.67 mls/hr IV Q12H [facility] Last Infusion: 02/05/24 12:08 Dose: Infused Documented By: TWILA Lisinopril (Lisinopril 10 Mg Tablet) 10 mg PO DAILY [facility]; Protocol Last Admin: 02/05/24 09:02 Dose: 10 mg Documented By: TWILA Loperamide HCl (Loperamide Hcl 2 Mg Capsule) 2 mg PO Q6H PRN PRN Reason: Loose Stool Magnesium Hydroxide (Milk Of Magnesia 30 Ml Oral.Susp) 30 ml PO DAILY PRN PRN Reason: Constipation Magnesium Hydroxide (Milk Of Magnesia 30 Ml Oral.Susp) 30 ml PO DAILY PRN PRN Reason: Constipation Melatonin (Melatonin 3 Mg Tablet) 6 mg PO BEDTIME PRN PRN Reason: Insomnia Mirtazapine (Mirtazapine 15 Mg Tablet) 15 mg PO BEDTIME [facility] Last Admin: 02/04/24 21:36 Dose: 15 mg Documented By: LOREN Morphine Sulfate (Morphine Sulfate 2 Mg/Ml Cartridge) 2 mg IVPUSH Q3H PRN; Protocol PRN Reason: Pain, Severe (Pain Scale 7-10) Last Admin: 02/04/24 23:36 Dose: 2 mg Documented By: ANTOIC Nitroglycerin (Nitroglycerin 0.4 Mg Tab.Subl) 0.4 mg SUBLINGUAL Q5M PRN PRN Reason: Chest Pain Oxycodone HCl (Oxycodone Hcl Immed Release 5 Mg Tablet) 5 mg PO Q6H PRN PRN Reason: Pain, Moderate(Pain Scale 4-6) Last Admin: 02/05/24 09:15 Dose: 5 mg Documented By: TWILA Phenytoin Sodium (Phenytoin Sodium Extended 100 Mg Capsule) 200 mg PO BID [facility] Last Admin: 02/05/24 09:04 Dose: 200 mg Documented By: TWILA Polyethylene Glycol (Polyethylene Glycol 3350 17 Gm Powd.Pack) 17 gm PO DAILY [facility] Last Admin: 02/05/24 12:05 Dose: 17 gm Documented By: TWILA Pravastatin Sodium (Pravastatin Sodium 20 Mg Tablet) 20 mg PO BEDTIME [facility] Last Admin: 02/04/24 21:36 Dose: 20 mg Documented By: LOREN Senna (Sennosides 8.6 Mg Tablet) 17.2 mg PO BEDTIME [facility] Last Admin: 02/04/24 21:36 Dose: 17.2 mg Documented By: LOREN Sodium Chloride (0.9 % Sodium Chloride Flush 3 Ml Syringe) 3 ml IVFLUSH QSHIFT [facility] Last Admin: 02/05/24 09:01 Dose: 3 ml Documented By: TWILA Vitamin D (Cholecalciferol (Vitamin D3) 25 Mcg Tablet) 50 mcg PO DAILY [facility] Last Admin: 02/05/24 09:03 Dose: 50 mcg Documented By: TWILA Labs 02/04/24 07:18 02/04/24 07:18 Labs: Laboratory Results - last 24 hr 02/04/24 02/04/24 02/05/24 16:23 21:17 07:14 PT 15.0 H INR 1.3 H POC Glucose 150 H 101 02/05/24 11:42 PT INR POC Glucose 124 H Microbiology Microbiology Results: Microbiology 02/03/24 Unknown Urine Culture - Final Urine clean catch - Clean Catch Midstream 02/03/24 19:50 Blood Culture - Preliminary Blood - Venous No growth after 24 hours. 02/03/24 19:50 Blood Culture - Preliminary Blood - Venous No growth after 24 hours. Assessment and Plan (1) Pneumonia: Status: Acute (2) Pulmonary embolism: Status: Acute Plan Cielo Thomas is a 68 y/o woman admitted with: Pulmonary embolism (unprovoked) associated with pneumonia Feels better dc Lovenox 70 mg, start Eliquis Continue IV antibiotic therapy with doxycycline and ceftriaxone TTE orderd Blood cultures pending and negative physical deconditioning get PT eval Mildly elevated transaminases. Statin-induced? Continue to monitor. Elevated troponin, likely secondary to acute PE. Continue to monitor. Major depressive disorder. Continue fluoxetine. Essential hypertension. Continue lisinopril. Epilepsy. Continue divalproex and phenytoin. Parkinson's disease. Continue amantadine. Not taking carbidopa/levodopa. Mild aortic stenosis (echo 2020). Will recheck TTE. Hx of HFpEF. Not in acute exacerbation. Old CVA. Continue statin. History of type 2 diabetes mellitus with hypoglycemia. A1c of 5.3. DC POC Insulin sliding scale. DVT prophylaxis: Lovenox Code status: Full (according to paperwork from assisted living facility). She will need hospitalization overnight for PE associated with pneumonia treatment with anticoagulation and empiric IV antibiotic therapy pending final cultures and PT evaluation Quality Stroke Does the patient have a stroke diagnosis?: No VTE Prior VTE?: No VTE Risk Level:: Medical - moderate - high VTE Device Contraindication: Treatment Not Indicated VTE Drug Contraindication: N/A - Med Ordered
[2024-02-05 16:25] LABS: Glucose, Whole Blood 112 mg/dL (60-115)
[2024-02-05 20:36] LABS: Glucose, Whole Blood 104 mg/dL (60-115)
[2024-02-05] MEDS: Morphine Sulfate 2 MG/ML CARTRIDGE IVPUSH (22:05)
[2024-02-05] MEDS: Mirtazapine 15 MG TABLET PO (22:09)
[2024-02-05] MEDS: Pravastatin Sodium 20 MG TABLET PO (22:09)
[2024-02-05] MEDS: Sennosides 8.6 MG TABLET 17.2 MG PO (22:09)
[2024-02-05] MEDS: Apixaban 5 MG TABLET 10 MG PO (22:10)
[2024-02-06 03:22] VITALS: BP 155/65; PULSE 88; RESP 18; TEMP 36.9; O2SAT 92
--- NOTE | 2024-02-06 07:00 | CA_ITS ---
Transthoracic Echocardiogram Patient (Last, First, Middle): Cielo Thomas C Gender: Female Date of : 1955 Age: 68 Procedure Date: 02/06/2024 Procedure Type: Transthoracic Echocardiogram [place] [facility] [place]: 162.56 cm Weight: 70.31 kg BSA: 1.76 m2 Heart Rate: bpm BP: 124 / 54 mmHg Docket Clerk: Referring MD: Adam Mena MD Cruise Agent: Dell Salmon MD Symptoms: Acute PE, holosystolic murmur, R upper sternal boa Study Quality: Fair ECG Rhythm: Sinus Conclusions: - 1. Normal LV ejection fraction 55-60% with moderate LVH with elevated filling pressures 2. Mildly dilated left atrium 3. Moderate calcific aortic stenosis 4. Normal measured RV systolic pressure Findings Left Ventricle Normal left ventricular cavity size. There is moderately increased left ventricular wall thickness. The left ventricular systolic function is normal. The visually estimated ejection fraction is between 55-60%. Spectral Doppler is indicative of an impaired relaxation filling pattern. Elevated filling pressures. E/E prime ratio is >15, consistent with elevated filling pressures. Right Ventricle Normal right ventricular cavity size and systolic function. Atria The left atrium is mildly dilated. There is no evidence of interatrial shunt. The right atrium was not well visualized. Aortic Valve There is moderate calcification of the aortic valve. There is moderate aortic valve stenosis. There is no aortic valve regurgitation. Mitral Valve There is mild anterior and posterior mitral leaflet thickening. There is moderate mitral annular calcification. There is trace mitral valve regurgitation. There is no mitral valve stenosis. Pulmonic Valve The pulmonic valve was not well visualized. Tricuspid Valve Likely normal tricuspid valve structure and function. There is trace tricuspid valve regurgitation. The right ventricular systolic pressure is normal. The right ventricular systolic pressure is 19 mmHg. Normal right atrial pressure. There is no evidence of pulmonary hypertension. Great Vessels The aorta was not well visualized. The pulmonary artery was not well visualized. Venous The inferior vena cava is normal in size and collapses greater than 50% with inspiration. Pericardium/Pleural The pericardium was not well visualized. Prior Study Comparison Changes noted compared to prior study dated: 01/26/2021. aortic stenosis is worse Measurements 2D Linear Measurements IVSd: 1.40 0.6-0.9/0.6-1.0 cm LVPWd: 1.46 0.7-1.1 cm Ao Root: 3.50 2.1-3.5 cm LVOT Diam: 2.10 3.0+(-)1.3 cm Mitral Valve MV VTI: 0.33 MV Pk Chuck: 1.15 MV Mn Chuck: 0.67 MV Pk Grad: 5.00 MV Mn Grad: 2.00 MV Pk E: 0.75 MV PK A: 1.16 MV Decel Time: 231.00 E/A: 0.60 E'Lateral: 3.15 E'Medial: 3.81 E/E' Med: 19.80 E/E' Lat: 23.90 PHT: 68.00 MVA PHT: 3.24 MVA Continuity: 2.[address] [place]: 3.26 Aortic Valve AoV Pk Chuck: 2.58 AoV Mn Chuck: 1.90 AoV VTI: 0.53 AoV Pk Grad: 27.00 Aov Mn Grad: 16.00 MACKENZIE Cont.VTI: 1.39 LVOT LVOT Pk Chuck: 0.93 LVOT Mn Chuck: 0.60 LVOT VTI: 0.21 LVOT Pk Grad: 3.00 LVOT Mn Grad: 2.00 LVOT Diam: 2.10 LVOT Area: 3.46 Diastolic Function MV Pk E: 0.75 MV Pk A: 1.16 E/A: 0.60 E'Medial: 3.81 E/E' Med: 19.80 E' Laterial: 3.15 E/E' Lat: 23.90 Right Ventricle TAPSE (mm): 25.00 TVS' Chuck: 16.00 Tricuspid Valve TR Pk Chuck: 1.98 TR Pk Grad: 16.00 RA Press: 3.00 RVSP: 19.00 Great Vessels Aorta Ao Root-2D: 3.50 2.0-3.7 cm Pulmonary Valve PV Pk Chuck: 1.15 Peak PV Grad: 5.00 Updated in Other Vendor System with Status of Final Dell Salmon MD electronically signed on 02/06/2024 12:33:07 PM with status of Final
[2024-02-06 07:11] VITALS: BP 124/54; PULSE 86; RESP 17; TEMP 37; O2SAT 91
[2024-02-06 07:33] LABS: Glucose, Whole Blood 82 mg/dL (60-115)
[2024-02-06] MEDS: Divalproex Sodium 250 MG TABLET.DR 750 MG PO (08:07)
[2024-02-06] MEDS: Gabapentin 100 MG CAPSULE PO (08:07)
[2024-02-06] MEDS: lisinopriL 10 MG TABLET PO (08:07)
[2024-02-06] MEDS: amantadine HCL 100 MG CAPSULE PO (08:07)
[2024-02-06] MEDS: Cyanocobalamin (Vitamin B-12) 500 MCG TABLET PO (08:07)
[2024-02-06] MEDS: Folic Acid 1 MG TABLET PO (08:07)
[2024-02-06] MEDS: Cholecalciferol (Vitamin D3) 25 MCG TABLET 50 MCG PO (08:07)
[2024-02-06] MEDS: Docusate Sodium 100 MG CAPSULE PO (08:08)
[2024-02-06] MEDS: Apixaban 5 MG TABLET 10 MG PO (08:08)
[2024-02-06] MEDS: FLUoxetine HCl 20 MG CAPSULE 40 MG PO (08:08)
[2024-02-06] MEDS: polyethylene glycoL 3350 17 GM POWD.PACK PO (08:08)
[2024-02-06] MEDS: Phenytoin Sodium Extended 100 MG CAPSULE 200 MG PO (08:08)
[2024-02-06] MEDS: 0.9 % Sodium Chloride Flush 3 ML SYRINGE IVFLUSH (08:09)
[2024-02-06] MEDS: cefTRIAXone sodium 1 GM VIAL IVPUSH (08:13)
[2024-02-06] MEDS: Doxycycline Hyclate 100 MG in 0.9 % Sodium Chloride 250 ML 166.67 MG IV (08:18)
[2024-02-06] MEDS: Morphine Sulfate 2 MG/ML CARTRIDGE IVPUSH (08:22)
[2024-02-06] MEDS: guaiFENesin LA 600 MG TAB.ER.12H PO (08:31)
[2024-02-06 11:23] LABS: Glucose, Whole Blood 114 mg/dL (60-115)
--- NOTE | 2024-02-06 11:46 | P.DS_ITS ---
DS: Providers Provider Date of Service: 02/06/24 Date of admission: 02/03/24 21:44 Date of discharge: 02/06/24 Primary care physician: Glen Pugh MD DS: Diagnosis Discharge Diagnosis (1) Pneumonia: Status: Acute (2) Pulmonary embolism: Status: Acute (3) Physical deconditioning: Status: Acute DS: Summary Hospital Course Hospital Course: Admission note HPI Cielo Thomas is a delightful 68 years old woman with past medical history significant for Parkinson's disease, major depressive disorder, type 2 diabetes mellitus, epilepsy, HFpEF, mild , essential hypertension and old CVA was brought to the emergency department by ambulance due to severe left lower quadrant that has been getting worse over the last several days. The patient recently visited the ED after she sustained a fall last Tuesday, she tripped we are rug, receiving frontal head trauma. She denied receiving trauma to the left ribcage. At her assisted living facility, she was found to have temperature 100.9 degrees and blood pressure 190/84. At that time, in the ED she had a head CT scan which showed no acute intracranial pathology. Pain increases with deep inspiration and sneezing. Patient denied any associated nausea, vomiting, diarrhea, fevers or chills. She denied any acute urinary symptoms such as burning with urination or bloody urine. She denied alcohol abuse, illicit drug use or tobacco smoking. In the ED, was found to have normal vital signs except for temperature of 103.7 (max). Blood workup showed no leukocytosis or lactic acidosis. There are no electrolyte imbalances. Transaminases are mildly elevated, troponin is 36.3 and BNP 172. Urinalysis consistent with urinary tract infection. Serology for influenza, RSV and COVID is negative. Chest, abdominal pelvis CT scan with IV contrast showed prominent pulmonary emboli throughout the left lung: Posterior lingula and left upper lobe, question subsegmental emboli in the right lower lobe and middle lobe; possible contusion, pneumonia and or aspiration as well as small pleural effusion and possible pulmonary infarct. It also showed bilateral renal cysts, myositis and prominent ovarian veins. ECG showed normal sinus rhythm with a heart rate of 94 beats per minutes with left acid deviation. ED tx: Lovenox 70 mg subQ, ceftriaxone 1 g IV, doxycycline 100 mg IV, NS 1 L falx, acetaminophen 650 mg p.o., Zofran 4 mg IV, morphine 2 mg IV Hospital course Pulmonary embolism (unprovoked) associated with pneumonia. Noted on CTA with no heart strain. CTA also showed likely LLL infarction from the emboli. the patient left sided pain related to that. fairly controlled with Tylenol at this time. Started on full dose bid Lovenox 70 mg the switched to full dose Eliquis 10 mg b id to finish 1 week then 6 months at least of 5 mg Eliquis bid. treated with IV antibiotic therapy with doxycycline and ceftriaxone as blood cultures remained negative. Echo done showing Physical deconditioning Had PT joseal who recommended home PT. will send home with VNA. Discharge plan Continue Antibiotics for 1 more week Cough medication Tylenol for pain Start Eliquis 10 mg two times a day for 6 more days Then take Eliquis 5 mg two times a day for 6 months at least. follow with PCP for further recommendations. Time Attestation Discharge Coordination Time (in mins): 38 Quality: Safe Use of Opioids Does Pt have an Active Cancer Diagnosis on the Problem List?: No Quality: Stroke Does the patient have a stroke diagnosis?: No Physical Exam Vital Signs: Vital Signs: Last Vital Signs Temp 98.6 F 02/06/24 07:11 Pulse 86 02/06/24 07:11 Resp 17 02/06/24 07:11 BP 124/54 L 02/06/24 07:11 Pulse Ox 91 L 02/06/24 07:11 O2 Del Method Room Air 02/06/24 07:11 BMI result Body Mass Index 26.6 Const: Other: Constitutional : Awake, interactive, not in distress Neck : Normal inspection, Supple Cardiovascular : RRR, no JVP, no lower extremity edema Respiratory : good bilateral air entry, basal fine crackles LLL Gastrointestinal: soft, lax, Normal bowel sounds, Non tender Skin : Warm, Dry Neurological : Alert & oriented x3, No focal deficit DS: Data Data Completed and Pending Completed studies during hospitalization [Text1]: Procedures Insertion of Internal Fixation Device into Right Upper Femur, Percutaneous Approach (01/26/21) Labs on day of discharge: Laboratory Results - last 24 hr 02/05/24 02/05/24 02/05/24 11:42 16:18 20:12 POC Glucose 124 H 112 104 02/06/24 02/06/24 07:27 11:17 POC Glucose 82 114 Preliminary micro results at discharge 02/03/24 19:50 Blood Culture - Preliminary Blood - Venous No growth after 48 hours. 02/03/24 19:50 Blood Culture - Preliminary Blood - Venous No growth after [address] scan - chest: Radiologist's impression: ITS Impressions Abdomen/Pelvis CT 02/03/24 18:29 IMPRESSION: 1. There are prominent pulmonary emboli throughout the left lower lobe, and posterior lingula and left upper lobe. Questionable subsegmental emboli in the right lower lobe and middle lobe. 2. Streaky and airspace opacities at the left lung base could represent contusion in the setting of trauma, as well as pneumonia and/or aspiration. This may also represent a pulmonary infarct. Small left pleural effusion. 3. No acute traumatic injury to the abdomen or pelvis. 4. Mild ascites, similar to the previous study. 5. Bilateral renal cysts and hypoattenuating lesions that are too small to characterize. Some of these are new since 10/12/2017 and are indeterminate. These could be further evaluated with renal protocol CT pre and postcontrast. 6. Prominent ovarian veins extending into the pelvis on the left suggesting pelvic congestion syndrome. This critical result was discussed with Dr. Moreno at 8:10 PM on 02/03/2024 and it was ascertained that the content and urgency of the report was understood at the time of direct communication. Electronically signed by: Narinder Burns MD 02/03/2024 08:10 PM [facility] Chest CT 02/03/24 18:29 IMPRESSION: 1. There are prominent pulmonary emboli throughout the left lower lobe, and posterior lingula and left upper lobe. Questionable subsegmental emboli in the right lower lobe and middle lobe. 2. Streaky and airspace opacities at the left lung base could represent contusion in the setting of trauma, as well as pneumonia and/or aspiration. This may also represent a pulmonary infarct. Small left pleural effusion. 3. No acute traumatic injury to the abdomen or pelvis. 4. Mild ascites, similar to the previous study. 5. Bilateral renal cysts and hypoattenuating lesions that are too small to characterize. Some of these are new since 10/12/2017 and are indeterminate. These could be further evaluated with renal protocol CT pre and postcontrast. 6. Prominent ovarian veins extending into the pelvis on the left suggesting pelvic congestion syndrome. This critical result was discussed with Dr. Moreno at 8:10 PM on 02/03/2024 and it was ascertained that the content and urgency of the report was understood at the time of direct communication. Electronically signed by: Narinder Burns MD 02/03/2024 08:10 PM [facility] Discharge Plan Discharge Anticipated Discharge Date/Time: 02/06/24 11:35 Patient Disposition: Home Health Service Discharge Diagnosis: Pneumonia Pulmonary embolism Referrals: [facility] [Outside] - 1 Week Glen Pugh MD [Primary Care Provider] - 1 Week Discharge Medications: New Eliquis 5 mg Tablet 10 mg PO BID Qty: 24 0RF guaifenesin [Mucinex] 600 mg Tablet Extended Release 12hr 600 mg PO BID Qty: 20 0RF doxycycline monohydrate 100 mg capsule 100 mg PO BID Qty: 14 0RF cefuroxime axetil 500 mg tablet 500 mg PO BID Qty: 14 0RF apixaban 5 mg tablet 5 mg PO BID Qty: 180 0RF Rx Instructions: start on 02/12 Continued fluoxetine 40 mg capsule 1 cap PO DAILY divalproex 250 mg tablet,delayed release (DR/EC) 3 tab PO BID folic acid 1 mg tablet 1 tab PO DAILY pravastatin 20 mg tablet 1 tab PO BEDTIME phenytoin sodium extended 100 mg capsule 2 tab PO BID nitroglycerin 0.4 mg Tablet, Sublingual 0.4 mg SUBLINGUAL Q5M PRN (Reason: Chest Pain) Rx Instructions: do not exceed 3 doses per episode mirtazapine 15 mg tablet 15 mg PO BEDTIME alum-mag hydroxide-simeth [Mintox] 200-200-20 mg/5 mL Suspension 30 ml PO DAILY PRN (Reason: GI Distress) acetaminophen 500 mg Tablet 1,000 mg PO Q6H PRN (Reason: Pain (Scale Score 1-3)) amantadine HCl 100 mg tablet 100 mg PO DAILY guaifenesin 100 mg/5 mL liquid 200 mg PO Q4H PRN (Reason: Cough) polyethylene glycol 3350 [Miralax] 17 gram/dose powder 17 g PO DAILY 30 Days Qty: 510 6RF gabapentin 100 mg capsule 100 mg PO BID sennosides [senna] 8.6 mg tablet 17.2 mg PO BEDTIME lisinopril 10 mg tablet 10 mg PO DAILY cholecalciferol (vitamin D3) 50 mcg (2,000 unit) capsule 50 mcg PO DAILY cyanocobalamin (vitamin B-12) 500 mcg tablet 500 mcg PO DAILY docusate sodium [Colace] 100 mg capsule 100 mg PO BID bisacodyl 10 mg suppository 10 mg NM DAILY PRN (Reason: Constipation) loperamide [Anti-Diarrheal (loperamide)] 2 mg capsule 2 mg PO Q6H PRN (Reason: Loose Stool) magnesium hydroxide [Milk of Magnesia] 400 mg/5 mL suspension 30 ml PO DAILY PRN (Reason: Constipation) Discharge Orders: Discharge Order (Routine); Ordered 02/06/24 Ordered By: Kelly Gaytan Diet: Advance to usual diet Activity on Discharge: As tolerated Stand Alone Forms: Patient Portal Discharge page Print Language: Nepalese Care Plan Goals: Continue Antibiotics for 1 more week Cough medication Tylenol for pain Start Eliquis 10 mg two times a day for 6 more days Then take Eliquis 5 mg two times a day for 6 months at least. follow with PCP for further recommendations Health Concerns: Pneumonia Pulmonary Embolism Plan of Treatment: antibiotics blood thinners Assessment: as above Discharge Date/Time: 02/06/24 14:44
[2024-02-06 12:00] VITALS: BP 125/58; PULSE 84; RESP 18; TEMP 36.5; O2SAT 93
--- NOTE | 2024-02-06 12:13 | P.F2F_ITS ---
Service Date Service Date: 02/06/24 Encounter Date of encounter: 02/06/24 Reasons for Services Signs and symptoms assessed: physical deconditioning Reason for physical therapy: home safety and mobility and therapeutic exercises Homebound: Leaving the home is medically contraindicated at this time without the asist of a device and/or another person due th the listed conditions above and below. Reason homebound: unsteady gait / fall risk Certification: Based on the above findings, I certify that this patient is confined to the home and needs intermittent long-term care, physical therapy and/or speech therapy, or continues to need occupational therapy. The patient is under my care, and I have initiated the establishment of the plan of care. The patient will be followed by a physician who will periodically review the plan of care. Time Spent With Patient Time: Total time managing care of this patient today ____ minutes.
--- NOTE | 2024-02-06 14:09 | MHC.CM.PN ---
Pt has been medically cleared for DC, she will return to [facility] and have home health services from [facility].
--- OUTSIDE RECORDS SUMMARY | 2024-02-10 12:11 | XMS_ITS | Summary of Care ---
Author Organization [facility] Address [address] [place] [address]- Encounter 12/10/22 - 12/21/[address] [address]- Discharge Disposition: Board & Care / Home Health Attending Physician: Kye HUFF, Lissette Lyons Admitting Physician: Lissette Fishman MD Allergies, Adverse Reactions, Alerts Substance Reaction Severity Status azithromycin Active macrolide antibiotics Active Medications acetaminophen 500 mg oral tablet 1,000 mg = 2 tab, Tab, Oral, TID, 0 Refill(s) Start Date: 12/19/22 Status: Ordered amantadine 100 mg oral capsule 100 mg = 1 cap, Cap, Oral, Daily, 0 Refill(s) Start Date: 12/19/22 Status: Ordered carbidopa-levodopa 25 mg-100 mg oral tablet 1 tab, Tab, Oral, TID, 0 Refill(s) Start Date: 12/19/22 Status: Ordered cholecalciferol 50 mcg (2000 intl units) oral tablet 50 mcg = 1 tab, Tab, Oral, Daily, 30 tab, 0 Refill(s), Route to Pharmacy Electronically, [facility], 165, 12/11/22 12:14:00 EDT, Height/Length Dosing, cm, 68.6, 12/17/22 6:08:00 EDT, Weight Dosing, kg Start Date: 12/19/22 Status: Ordered Depakote 250 mg oral Delayed Release EC tablet 750 mg = 3 tab, Tab-EC, Oral, BID, 0 Refill(s) Start Date: 12/19/22 Status: Ordered docusate sodium 100 mg oral capsule 100 mg = 1 cap, Cap, Oral, BID, 60 cap, 0 Refill(s), Route to Pharmacy Electronically, [facility], 165, 12/11/22 12:14:00 EDT, Height/Length Dosing, cm, 68.6, 12/17/22 6:08:00 EDT, Weight Dosing, kg Start Date: 12/19/22 Status: Ordered FLUoxetine 20 mg oral capsule 40 mg = 2 cap, Cap, Oral, Daily, 0 Refill(s) Start Date: 12/19/22 Status: Ordered folic acid 1 mg oral tablet 1 mg = 1 tab, Tab, Oral, Daily, 30 tab, 0 Refill(s), Route to Pharmacy Electronically, [facility], 165, 12/11/22 12:14:00 EDT, Height/Length Dosing, cm, 68.6, 12/17/22 6:08:00 EDT, Weight Dosing, kg Start Date: 12/19/22 Status: Ordered gabapentin 100 mg oral capsule 100 mg, 1 cap, Indication: Neuropathic Pain - Spinal Cap, Oral, BID, 60 cap, 0 Refill(s), Route to Pharmacy Electronically, [facility], 165, 12/11/22 12:14:00 EDT, Height/Length Dosing, cm, 68.6, 12/17/22 6:08:00 EDT, kg, Weight Dosing Start Date: 12/19/22 Status: Ordered Lidoderm 5% topical film 1 patch, Film, Transdermal, QHS, 30 patch, 0 Refill(s), Route to Pharmacy Electronically, [facility], 165, 12/11/22 12:14:00 EDT, Height/Length Dosing, cm, 68.6, 12/17/22 6:08:00 EDT, Weight Dosing, kg Start Date: 12/19/22 Status: Ordered lisinopril 10 mg = 1 tab, Tab, Oral, Start date 12/20/22 8:00:00 EDT, 12/15/22 9:39:00 EDT Start Date: 12/20/22 Stop Date: 12/20/22 Status: Completed lisinopril 10 mg oral tablet 10 mg = 1 tab, Tab, Oral, Daily, 30 tab, 0 Refill(s), Route to Pharmacy Electronically, [facility], 165, 12/11/22 12:14:00 EDT, Height/Length Dosing, cm, 68.6, 12/17/22 6:08:00 EDT, Weight Dosing, kg Start Date: 12/19/22 Status: Ordered Mylanta 10 mL, Susp-Oral, Oral, q4hr PRN, 0 Refill(s), Indigestion Start Date: 12/19/22 Status: Ordered nitroglycerin 0.4 mg sublingual tablet 0.4 mg, 1 tab, Tab-SL, Sublingual, q5min PRN, 0 Refill(s), Chest pain Start Date: 12/19/22 Status: Ordered oxyCODONE 5 mg oral tablet 5 mg = 1 tab, Tab, Oral, q4hr PRN, 12 tab, 0 Refill(s), Partial fill upon patient request., PAIN (Scale 1-10), Route to Pharmacy Electronically, [facility], 165, 12/11/22 12:14:00 EDT, Height/Length Dosing, cm, 68.6, 12/17/22 6:08:00 EDT,... Start Date: 12/19/22 Status: Ordered phenytoin 100 mg oral capsule, extended release 200 mg = 2 cap, Cap-ER, Oral, BID, 0 Refill(s) Start Date: 12/19/22 Status: Ordered pravastatin 20 mg oral tablet 20 mg = 1 tab, Tab, Oral, QHS, 0 Refill(s) Start Date: 12/19/22 Status: Ordered Problem List Condition Effective Dates Status Health Status Inform ant CAD - Coronary artery disease(Confirmed) Active Diabetes mellitus(Confirmed) Active EtOH - Alcohol(Confirmed) Active HTN - Hypertension(Confirmed) Active Parkinson's disease(Confirmed) Active Right humeral neck fracture(Confirmed) Active seizures(Confirmed) Active Results Laboratory List Name Date Glucose, POC 12/18/22 Glucose, POC 12/13/22 Most recent to oldest [Reference Range]: 1 2 3 Creatinine Level 0.95 mg/dL (12/20/22 2:43 PM) 0.88 mg/dL (12/18/22 2:46 PM) 0.86 mg/dL (12/17/22 3:12 PM) Estimated Creatinine Clearance 48.37 mL/min 1 (12/20/22 2:43 PM) 48.37 mL/min 2 (12/18/22 2:46 PM) 48.37 mL/min 3 (12/17/22 3:12 PM) Glucose POC RALS [74-106 mg/dL] 112 mg/dL *HI* (12/18/22 11:21 AM) 150 mg/dL *HI* (12/13/22 4:37 PM) 1Result Comment: Calculated using method: Cockcroft-Gault (default) Calculated using Formula : 0.85*(140-ageInYears)*IBW/(72) Age: 67 (34837901598.0) Serum Creatinine: 0.95 mg/dL (83780687829.0) Height: 165 cm (40884842502.0) Weight: 68.6 kg (IBW = 56.909 kg) 2Result Comment: Calculated using method: Cockcroft-Gault (default) Calculated using Formula : 0.85*(140-ageInYears)*IBW/(72) Age: 67 (43045380375.0) Serum Creatinine: 0.88 mg/dL (39973535102.0) Height: 165 cm (30050752298.0) Weight: 68.6 kg (IBW = 56.909 kg) 3Result Comment: Calculated using method: Cockcroft-Gault (default) Calculated using Formula : 0.85*(140-ageInYears)*IBW/(72) Age: 67 (58697300410.0) Serum Creatinine: 0.86 mg/dL (65160031616.0) Height: 165 cm (12565489772.0) Weight: 68.6 kg (IBW = 56.909 kg) Vital Signs Most recent to oldest [Reference Range]: 1 2 3 Temperature Oral F [96.4-99.1 DegF] 97.7 DegF (12/21/22 5:51 AM) 97.8 DegF (12/20/22 5:34 AM) 98 DegF (12/19/22 2:29 PM) Temperature Temporal F [96.4-99.1 DegF] 98 DegF (12/17/22 6:06 AM) Peripheral Pulse Rate [60-100 bpm] 56 bpm *LOW* (12/21/22 5:51 AM) 61 bpm (12/20/22 5:35 AM) 76 bpm (12/19/22 2:30 PM) Respiratory Rate [14-20 br/min] 20 br/min (12/17/22 6:06 AM) 20 br/min (12/15/22 5:26 AM) 18 br/min (12/13/22 8:15 PM) Blood Pressure [90-140/60-90 mmHg] 139/79mmHg (12/21/22 5:51 AM) 120/71mmHg (12/20/22 7:27 AM) 114/73mmHg (12/20/22 5:34 AM) Mean Arterial Pressure, Cuff 99 mmHg (12/21/22 5:51 AM) 87 mmHg (12/20/22 5:34 AM) 80 mmHg (12/19/22 2:30 PM) Extremity used to obtain blood pressure Left Arm (12/13/22 8:15 PM) Left Arm (12/10/22 4:06 PM) Cuff Size. Medium (12/10/22 4:06 PM) Temperature Oral 36.5 DegC 1 (12/21/22 5:51 AM) 36.6 DegC 2 (12/20/22 5:34 AM) 36.0 DegC 3 (12/19/22 2:29 PM) 1Result Comment: Charted by SYSTEM secondary to charting of Temperature Oral F on a Vitals Monitor. Rule: VITALSLINK_CALCULATIONS_2 2Result Comment: Charted by SYSTEM secondary to charting of Temperature Oral F on a Vitals Monitor. Rule: VITALSLINK_CALCULATIONS_2 3Result Comment: Charted by SYSTEM secondary to charting of Temperature Oral F on a Vitals Monitor. Rule: VITALSLINK_CALCULATIONS_2 Social History Social History Type Response Sex Female
--- OUTSIDE RECORDS SUMMARY | 2024-02-10 12:12 | XMS_ITS | Continuity of Care Document ---
Author Organization [facility] Address [address] [place] [address]- Care Team Providers [facility] [place] Former Name Role Phone Not on Staff, PCP Primary Care Physician Unavail able Encounter [facility] Date(s): 06/30/23 - 07/30/23 [facility] [address] [place] [address]- [place] Allergies, Adverse Reactions, Alerts Substance Reaction Severity Status erythromycin Gastrointestinal upset Activ e Medications clonidine 0.1 mg oral tablet 1 tablet = 0.1 mg, By Mouth, 2 times a day, 0 Refills, Maintenance Start Date: 05/29/10 Status: Ordered divalproex sodium 250 mg oral tablet, extended release = 750 mg, By Mouth, 2 times a day, # 60 tablet, 0 Refills, Maintenance, 10/08/17 16:03:48 EDT, ER Tablet Start Date: 10/08/17 Stop Date: 11/07/17 Status: Ordered fluoxetine 40 mg oral capsule 1 capsule = 40 mg, By Mouth, Daily, 0 Refills, Maintenance Start Date: 05/29/10 Status: Ordered folic acid 1 mg oral tablet 1 mg, By Mouth, Daily, # 30 tablet, Refills 0, Tot. Refills 0, Maintenance, 10/08/17 16:04:00 EDT, Route to Pharmacy Electronically, [id number], [facility] Start Date: 10/08/17 Stop Date: 11/07/17 Status: Ordered GlyBURIDE Tablet 5, mg, By Mouth, 2 times a day, 0, 0, 11/21/06 5:25:54, Print YSABEL Number, [id number], Constant Indicator Start Date: 11/21/06 Status: Ordered lisinopril 20 mg oral tablet 40 mg, By Mouth, Daily, # 30 tablet, Refills 0, Tot. Refills 0, Maintenance, 10/08/17 16:03:13 EDT,Route to Pharmacy Electronically, [id number], [facility] Start Date: 10/08/17 Stop Date: 11/07/17 Status: Ordered Metformin Tablet 500, mg, By Mouth, Daily, 0, 0, 11/21/06 5:27:29, 2 tabs by mouth twice daily ic glucophage, Print YSABEL Number, [id number], Constant Indicator Start Date: 11/21/06 Status: Ordered metoprolol 100 mg oral tablet, extended release 100 mg, By Mouth, Daily, Refills 0, Maintenance, 10/08/17 16:03:42 EDT Start Date: 10/08/17 Status: Ordered NIFEdipine 90 mg oral tablet, extended release 180 mg, By Mouth, Daily, # 30 tablet, Refills 0, Tot. Refills 0, Maintenance, 10/08/17 16:04:17 EDT, Route to Pharmacy Electronically, [id number], [facility] Start Date: 10/08/17 Stop Date: 11/07/17 Status: Ordered Pravastatin By Mouth, Daily at bedtime, 0 Refills, Maintenance Start Date: 06/04/11 Status: Ordered Protonix 20 mg oral delayed release tablet = 40 mg, By Mouth, Daily, # 30 tablet, 0 Refills, Maintenance, 10/08/17 16:04:30 EDT, EC Tablet Start Date: 10/08/17 Stop Date: 11/07/17 Status: Ordered Vitamin D3 2000 intl units oral capsule 1 capsule = 2,000 International_Units, By Mouth, Daily, capsule, 0 Refills, Maintenance Start Date: 05/29/10 Status: Ordered Problem List Condition Confirmation Course Effective Dates Status Health [facility] Informant Carotid artery stenosis Confirmed 05/29/10 Active Diabetes Mellitus Confirmed Active High cholesterol Confirmed Active Smoker Confirmed Active Social History Social History Type Response Smoking Status Current every day sarahy maldonado entered on: 02/21/14 Sex Patient Care team information Care Team Personnel Name: Not on Staff, PCP Position: S Physician (General Medicine) Member Role: PCP Care Team Related Persons Name: PAZ YI Address: home [address] [place] [address]
== END 2024-02-06 14:44 | disposition home health service (06) | DRG 175 ==
LOC: HO.ED 21:17 → HO.EDOVER 21:50 → HO.IMC 02-04 01:36
PROVIDERS: Physician Assistant; Admitting Provider Internal Medicine; Emergency Provider Internal Medicine; PCP Internal Medicine; Visit Provider Student in an Organized Health Care Education/Training Program
DX: I26.99 Other pulmonary embolism without acute cor pulmonale (principal); J18.9 Pneumonia, unspecified organism; I25.10 Atherosclerotic heart disease of native coronary artery without angina pectoris; G20.A1 Parkinson's disease without dyskinesia, without mention of fluctuations; G40.909 Epilepsy, unspecified, not intractable, without status epilepticus; F32.9 Major depressive disorder, single episode, unspecified; I35.0 Nonrheumatic aortic (valve) stenosis; I11.0 Hypertensive heart disease with heart failure; E11.649 Type 2 diabetes mellitus with hypoglycemia without coma; Z86.73 Personal history of transient ischemic attack (TIA), and cerebral infarction without residual deficits; F17.210 Nicotine dependence, cigarettes, uncomplicated; Z71.6 Tobacco abuse counseling; Z20.822 Contact with and (suspected) exposure to COVID-19; Z79.899 Other long term (current) 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
CPT/HCPCS: 0241U; 36415; 71045; 71260; 74177; 80048; 80053; 80164; 80185; 81001; 82947; 83036; 83605; 83690; 83880; 84484; 85025; 85610; 87040; 87086; 93005; 93306; 97162; 99285; J0696; J1650; J2270; J2405; Q9957; Q9967

== ENCOUNTER → 2024-02-03 20:09 | Outpatient (BNV) | payer MEDICARE, SELFPAY | PROVIDERS: Admitting Provider Internal Medicine; Emergency Provider Internal Medicine; PCP Internal Medicine; Visit Provider Internal Medicine Cardiovascular Disease | DX: R94.31 Abnormal electrocardiogram [ECG] [EKG] (principal) | CPT/HCPCS: 93010 ==

== ENCOUNTER 2024-02-03 21:44 | Outpatient (BNV) | payer MEDICARE, SELFPAY | END 2024-02-06 07:00 | PROVIDERS: Admitting Provider Internal Medicine; Emergency Provider Internal Medicine; PCP Internal Medicine; Visit Provider Internal Medicine Cardiovascular Disease | DX: I35.0 Nonrheumatic aortic (valve) stenosis (principal); I34.81 Nonrheumatic mitral (valve) annulus calcification | CPT/HCPCS: 93306 ==

== ENCOUNTER → 2024-02-03 21:44 | Outpatient (BNV) | payer MEDICARE, SELFPAY | PROVIDERS: Admitting Provider Internal Medicine; Emergency Provider Internal Medicine; PCP Internal Medicine; Visit Provider Internal Medicine | DX: J18.9 Pneumonia, unspecified organism (principal); I26.99 Other pulmonary embolism without acute cor pulmonale; R53.81 Other malaise | CPT/HCPCS: 99223; 99232; 99239; G0180 ==

== ENCOUNTER 2024-05-25 08:39 | Outpatient (AMB) | payer MEDICARE, MEDICAID, SELFPAY ==
[2024-05-25 08:41] VITALS: BP 150/66; PULSE 73
--- NOTE | 2024-05-25 08:41 | MHC.OFFVIS ---
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 Required: No Accompanied by: Self / Same As Patient Allergies azithromycin [AZITHROMYCIN] Allergy (Unknown, Verified 01/29/24 01:00) HIVES Macrolide Antibiotics Allergy (Unknown, Verified 02/03/24 17:28) Unknown Medication List - Last Reconciled 05/25/24 by ELBA Hwang acetaminophen 1,000 mg PO Q6H PRN alum-mag hydroxide-simeth 200-200-20 mg/5 mL (Mintox) 30 mL PO DAILY PRN amantadine HCl 100 mg PO DAILY apixaban 5 mg PO BID bisacodyl 10 mg DC DAILY PRN cholecalciferol (vitamin D3) 50 mcg PO DAILY cyanocobalamin (vitamin B-12) 500 mcg PO DAILY divalproex 3 tabs PO BID docusate sodium (Colace) 100 mg PO BID fluoxetine 1 cap PO DAILY fluoxetine 10 mg PO DAILY folic acid 1 tab PO DAILY gabapentin 100 mg PO BID guaifenesin ER (Mucinex) 600 mg PO BID lisinopril 10 mg PO DAILY loperamide (Anti-Diarrheal (loperamide)) 2 mg PO Q6H PRN magnesium hydroxide (Milk of Magnesia) 30 mL PO DAILY PRN mirtazapine 15 mg PO BEDTIME nitroglycerin 0.4 mg sublingual Q5M PRN phenytoin sodium extended 2 tabs PO BID polyethylene glycol 3350 (Miralax) 17 grams PO DAILY 30 days pravastatin 1 tab PO BEDTIME sennosides (senna) 17.2 mg PO BEDTIME HPI HPI overdue f/u: Details: Cielo is a 68-year-old female past medical history of hypertension, hyperlipidemia, reported remote PR, aortic stenosis who presents for follow-up after recent echocardiogram. Today she reports that she has been feeling generally well. She was last seen by our applied exercise physiologist on 01/26/2021. She denies any recent cardiac issues. No chest discomfort at rest or with activity. No shortness of breath, PND, orthopnea. She gets swelling in right lower leg. She is mostly sedentary. No lightheadedness, presyncope, syncope or recent falls. Lives in assisted living. She is on Eliquis which she states is because her blood was too thick. She is not on it for any known cardiac reason. No bleeding issues reported. She smokes 4 cigarettes per day. She takes her meds as directed. [facility] Medical History (Updated 05/25/24 @ 11:13 by Danni Torres NP-C) Parkinson's disease without dyskinesia Seizure Parkinson's disease Hx of fracture of femur History of alcohol abuse Diabetes History of encephalopathy History of traumatic subdural hematoma Tobacco dependence Atherosclerotic cardiovascular disease Non-rheumatic aortic stenosis Preoperative cardiovascular examination Myocardial infarct History of coronary artery disease Seizure disorder Hypertension Fall Surgical History History of hip surgery Family History Mother No problems noted. Father No problems noted. 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 Review of Systems Const Details: sedentary All systems reviewed & are unremarkable except as noted in HPI and below Denies chills, Denies fatigue, Denies fever(s), Denies weight gain and Denies weight loss ENT Denies dizziness Card Denies chest pain, Denies leg edema, Denies lightheadedness, Denies palpitations, Denies dyspnea on exertion, Denies orthopnea and Denies other Resp Denies cough and Denies dyspnea on exertion GI Denies hematochezia and Denies change in stool character Musc Denies abnormal gait, Denies muscle weakness, Denies numbness, Denies radiating pain into limb and Denies tingling Neuro Denies abnormal gait, Denies dizziness, Denies numbness and Denies tingling Endo Denies fatigue and Denies palpitations Physical Exam Vital Signs: Last Vital Signs Pulse 73 05/25/24 08:41 BP 150/66 H 05/25/24 08:41 BMI result Body Mass Index 30.0 Const General: cooperative, healthy appearing, comfortable and no acute distress Orientation/consciousness: patient oriented x3 Neck Neck: Yes normal visual inspection Resp Effort & Inspection: normal respiratory effort Auscultation: clear to auscultation bilaterally, no rales, no rhonchi and no wheezes Cardio Rate: regular rate Rhythm: regular rhythm Heart sounds: S1 normal heart sound present, S2 normal heart sound present, no murmurs and no rubs Neuro General: patient oriented x3 Extrem General: Yes normal to inspection, No no pedal edema and No calf tenderness Psych Appearance: grossly normal Mental Status: mental status grossly normal Speech and movement: Normal speech and movement present Office Procedures EKG Details: Today, read by me SR, minimal voltage criteria for LVH, ST/ T wave abn with T inversion inferiolateral leads, QTc 471ms, rate 73 [id number], Complete Assessment & Plan Assessment & Plan (1) Coronary artery disease: Code(s): I25.10 - Atherosclerotic heart disease of [place] coronary artery without angina pectoris Category: Medical Plan: Reported history PR, remotely. She does not believe she has any coronary stents. EKG done today shows sinus rhythm with ST abnormality and inverted T's inferior, V4 through V6 which is different from prior EKG 01/2024. Last echo from 02/06/2024 shows normal EF and no reported regional wall motion abnormalities. Asymptomatic but admits to being mostly sedentary which can mask symptoms. Will check a pharmacological nuclear stress test to evaluate for ischemia. She does not believe she can walk on a treadmill. Plan to call her with test results. Continue pravastatin, lisinopril and she is on Eliquis so aspirin avoided to reduce risk of bleeding. At this time will arrange for cardiology follow-up in 6 months, sooner if needed or if stress test warrants it. (2) Aortic stenosis: Code(s): I35.0 - Nonrheumatic aortic (valve) stenosis Category: Medical Plan: History of aortic stenosis with most recent echo 02/06/2024 showing moderate aortic stenosis with mean gradient 16 mmHg, aortic valve area 1.39 centimeter squared. She is asymptomatic. Cardinal signs of severe reviewed with her. Will update echocardiogram 1 year from last, due January 2024. Continue statin. (3) Hypertension: Code(s): I10 - Essential (primary) hypertension Category: Medical Plan: Blood pressure mildly elevated today. Improved on recheck. She tells me blood pressure checked once a month at her assisted living facility. Continue lisinopril at 10 mg daily. I wrote on her paperwork that if her systolic reading runs greater than 140 that her lisinopril dose can be increased. (4) Tobacco dependence: Code(s): F17.200 - Nicotine dependence, unspecified, uncomplicated Category: Medical Plan: Smokes 4 cigarettes per day. Spoke with her about smoking cessation. (5) Abnormal EKG: Code(s): R94.31 - Abnormal electrocardiogram [ECG] [EKG] Category: Medical Plan: As above Plan Time spent on chart review, documentation, interview and assessment Orders: Orders CA echo transthoracic complete 07/08/24 I35.0 - Nonrheumatic aortic (valve) stenosis NM cardiolite stress test Today R94.31 - Abnormal electrocardiogram [ECG] [EKG] CA lexiscan stress w nathalie Today R94.31 - Abnormal electrocardiogram [ECG] [EKG] Coding Level of Care Code Est Pt Level 4 (68463) Complex EM visit Add On G2211 Diagnoses Coronary artery disease I25.10 Aortic stenosis I35.0 Hypertension I10 Tobacco dependence F17.200 Abnormal EKG R94.31 CPT Codes EKG - CPT: [id number], Complete ([id number]) Time Spent (min) 30
--- OUTSIDE RECORDS SUMMARY | 2024-05-25 09:12 | XMS_ITS | Clinical Summary ---
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; Unspecified convulsions (CMS/HCC); Alcohol use, 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); 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; Other pulmonary embolism without acute cor pulmonale (CMS/HCC) 04/24/2024 Lab Requisition [facility] - Main Lab [address] [employer] [phone] Glen Pugh MD Shortness of breath; Acute cough 04/16/2024 8:57 AM EST - 04/16/2024 11:59 PM EST Hospital Encounter [facility] [address] [place] [phone] Encounter for screening mammogram for breast cancer Discharge Disposition: Home or Self Care 03/08/2024 8:52 AM EST - 03/08/2024 11:59 PM EST Hospital Encounter [facility] Bone Density [address] [place] [address] Metabolic bone disease Discharge Disposition: Home or Self Care from Last 3 Months Social History Tobacco Use Types Packs/Day Years Used Date Smoking Tobacco: Never Assessed Comments No Sex and Gender Information Value Date Recorded Sex Assigned at Not on file Legal Sex Female 11:49 PM EST Gender Identity Not on file Sexual Orientation Not on file Obstetrics History Para Term AB IAB SAB Ectopic Multiple Livin g Live Births 1 Last Filed Vital Signs Vital Sign Reading Time Taken Comments Blood Pressure - - Pulse - - Temperature - - Respiratory Rate - - Oxygen Saturation - - Inhaled Oxygen Concentration - - Weight 68 kg (150 lb) 04/16/2024 9:22 AM EST Height 162.6 cm (5' 4 ) 04/16/2024 9:22 AM EST Body Mass Index 25.75 04/16/2024 9:22 AM EST Plan of Treatment Health Maintenance Due Date Last Done Comments Diabetes: Annual Foot Exam 1964 Diabetes: Annual Retina Eye Exam 1964 Hepatitis A Vaccines (1 of 2 - Risk 2-dose series) 1973 Zoster Vaccines (1 of 2) 2004 Pneumococcal Vaccine: 50+ Years (3 of 3 - PCV20 or PCV21) 01/27/2022 01/27/2017, 04/19/2007 Cholesterol Screening (Lipid Panel) 02/21/2022 Colorectal Cancer Screening: Colonoscopy 02/21/2022 Depression Screening 02/21/2022 Falls Risk Assessment 02/21/2022 Hepatitis C Screening 02/21/2022 Medicare Annual Wellness Visit 02/21/2022 Social Influencers of Health Screening 02/21/2022 Diabetes: Annual Urine Albumin-Creatinine Ratio (uACR) 03/06/2022 Diabetes: Blood Sugar Control Test (HGBA1C) 03/06/2022 DTaP,Tdap,and Td Vaccines (3 - Td or Tdap) 07/24/2023 07/23/2013, 06/11/2005 COVID-19 Vaccine ( - season) 2023 Influenza Vaccine (#1) 2023 , 04/21/2012, 11/24/2010, Additional history exists Diabetes: Annual GFR (Glomerular Filtration Rate) 05/08/2025 05/08/2024 Hypertension/CHF/CAD Annual BMP Blood Test 05/08/2025 05/08/2024 Breast Cancer Screening 04/16/2026 04/16/19, 04/14/2023, 06/28/2016, Additional history exists RSV Immunization Patients 60+ Years Old (1 - 1-dose 75+ series) 2029 Osteoporosis Screening (Bone Density Screening) 03/08/2034 03/08/2024, 06/29/2021 HIB Vaccines Aged Out No longer eligi ble based on patient's age to complete this topic HPV Vaccines Aged Out No longer eligi ble based on patient's age to complete this topic Hepatitis B Vaccines Aged Out No long er eligible based on patient's age to complete this topic IPV Vaccines Aged Out No longer eligi ble based on patient's age to complete this topic MMR Vaccines Aged Out No longer eligi ble based on patient's age to complete this topic Meningococcal ACWY Vaccine Aged Out N o longer eligible based on patient's age to complete this topic Meningococcal B Vacine Aged Out No lo nger eligible based on patient's age to complete this topic RSV Immunization Patients Under 20 months Aged Out No longer eligible based on patient's age to complete this topic Varicella Vaccines Aged Out No longer eligible based on patient's age to complete this topic Procedures Procedure Name Priority Date/Time Associated Diagnosis Comments VALPROIC ACID LEVEL, TOTAL Routine 05/08/2024 5:45 AM EST Essential (primary) hypertension Type 2 diabetes mellitus without complications (CMS/HCC) 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 Unspecified convulsions (CMS/HCC) Alcohol use, 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) 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 Other pulmonary embolism without acute cor pulmonale (CMS/HCC) PHENYTOIN LEVEL, TOTAL Routine 05/08/2024 5:45 AM EST Essential (primary) hypertension Type 2 diabetes mellitus without complications (CMS/HCC) 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 Unspecified convulsions (CMS/HCC) Alcohol use, 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) 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 Other pulmonary embolism without acute cor pulmonale (CMS/HCC) HEPATIC FUNCTION PANEL Routine 05/08/2024 5:45 AM EST Essential (primary) hypertension Type 2 diabetes mellitus without complications (CMS/HCC) Other senior care (current) 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 Unspecified convulsions (CMS/HCC) Alcohol use, 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) 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 Other pulmonary embolism without acute cor pulmonale (CMS/HCC) BASIC METABOLIC PANEL Routine 05/08/2024 5:45 AM EST Essential (primary) hypertension Type 2 diabetes mellitus without complications (CMS/HCC) 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 Unspecified convulsions (CMS/HCC) Alcohol use, 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) 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 Other pulmonary embolism without acute cor pulmonale (CMS/HCC) COMPLETE BLOOD COUNT Routine 05/08/2024 5:45 AM EST Essential (primary) hypertension Type 2 diabetes mellitus without complications (CMS/HCC) Other senior care (current) 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 Unspecified convulsions (CMS/HCC) Alcohol use, 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) 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 Other pulmonary embolism without acute cor pulmonale (CMS/HCC) [id number], RSV, FLU A AND B QUALITATIVE RT-PCR, LOCAL REFERENCE LAB Routine 04/23/2024 12:00 AM EST Shortness of breath Acute cough MG MAMMO DIGITAL SCREENING W SULAIMAN BILAT Routine 04/16/2024 9:35 AM EST Encounter for screening mammogram for breast cancer BD BONE DENSITY DXA AXIAL SKELETON Routine 03/08/2024 9:52 AM EST Metabolic bone disease from Last 3 Months Results * (ABNORMAL) Complete blood count (05/08/2024 5:45 AM EST) Pathologist [facility] [place] WBC 5.0 4.8 - 10.8 K/mcL LAB HEMETOLOGY METHOD 05/08/2024 1:27 PM [facility] RBC 3.50(L) 3.80 - 4.80 M/mcL LAB HEMETOLOGY METHOD 05/08/2024 1:27 PM [facility] Hemoglobin 11.7 11.5 - 16.0 g/dL LAB HEMETOLOGY METHOD 05/08/2024 1:27 PM [facility] Hematocrit 36.8 35.0 - 47.0 % LAB HEMETOLOGY METHOD 05/08/2024 1:27 PM [facility] MCV 105.4(H) 79.0 - 98.0 FL LAB HEMETOLOGY METHOD 05/08/2024 1:27 PM [facility] MCH 33.5(H) 27.0 - 32.0 pcg LAB HEMETOLOGY METHOD 05/08/2024 1:27 PM [facility] MCHC 31.8(L) 32.0 - 37.0 g/dL LAB HEMETOLOGY METHOD 05/08/2024 1:27 PM [facility] RDW 13.5 11.0 - 15.0 % LAB HEMETOLOGY METHOD 05/08/2024 1:27 PM [facility] Platelets 234 130 - 400 K/mcL LAB HEMETOLOGY METHOD 05/08/2024 1:27 PM [facility] MPV 10.4 7.0 - 11.0 FL LAB HEMETOLOGY METHOD 05/08/2024 1:27 PM [facility] NRBC 0.0 <1.0 % LAB HEMETOLOGY METHOD 05/08/2024 1:27 PM [facility] NRBC Absolute 0.00 <0.10 K/mcL LAB HEMETOLOGY METHOD 05/08/2024 1:27 PM [facility] Blood Venous blood specimen / Unknown Venipuncture / Unknown 05/08/2024 5:45 AM EST 05/08/2024 12:00 PM EST us Glen Pugh MD LAB BLOOD ORDERABLES Final Result Performing Organization Address [facility]/ZIP Co de Phone Number [facility] [address] [place] [address], [place] [phone] * Phenytoin level total (05/08/2024 5:45 AM EST) [facility] Phenytoin Level 13.2 10.0 - 20.0 mcg/mL LAB CHEMISTRY METHOD 05/08/2024 12:00 PM EST [facility] Blood Venous blood specimen / Unknown Venipuncture / Unknown 05/08/2024 5:45 AM EST 05/08/2024 12:00 PM EST us Glen Pugh MD LAB BLOOD ORDERABLES Final Result Performing Organization Address [facility]/ZIP Co de Phone Number [facility] [address] [place] [address], [place] [phone] * (ABNORMAL) Valproic acid level, total (05/08/2024 5:45 AM EST) [facility] Valproic Acid, Total 42(L) 50 - 100 mcg/mL LAB CHEMISTRY METHOD 05/08/2024 12:00 PM EST [facility] Blood Venous blood specimen / Unknown Venipuncture / Unknown 05/08/2024 5:45 AM EST 05/08/2024 12:00 PM EST us Glen Pugh MD LAB BLOOD ORDERABLES Final Result Performing Organization Address City/[facility]/ZIP Co de Phone Number [facility] [address] [place] [address], [place] [phone] * (ABNORMAL) Hepatic function panel (05/08/2024 5:45 AM EST) [facility] Total Protein 6.1 6.0 - 8.0 g/dL LAB CHEMISTRY METHOD 05/08/2024 12:00 PM [facility] Albumin 3.0(L) 3.2 - 5.0 g/dL LAB CHEMISTRY METHOD 05/08/2024 12:00 PM [facility] Total Bilirubin 0.2 0.0 - 1.4 mg/dL LAB CHEMISTRY METHOD 05/08/2024 12:00 PM [facility] Bilirubin, Direct <0.1 0.0 - 0.3 mg/dL LAB CHEMISTRY METHOD 05/08/2024 12:00 PM [facility] Bilirubin, Indirect LAB CHEMISTRY METHOD 05/08/2024 12:00 PM [facility] Comment:Unable to calculate Indirect Bilirubin. ALT (SGPT) 22 10 - 60 unit/L LAB CHEMISTRY METHOD 05/08/2024 12:00 PM [facility] AST (SGOT) 23 10 - 42 unit/L LAB CHEMISTRY METHOD 05/08/2024 12:00 PM [facility] Comment:Hemolysis present Alkaline Phosphatase 98 42 - 121 unit/L LAB CHEMISTRY METHOD 05/08/2024 12:00 PM [facility] Blood Venous blood specimen / Unknown Venipuncture / Unknown 05/08/2024 5:45 AM EST 05/08/2024 12:00 PM EST Glen Pugh MD LAB BLOOD ORDERABLES Final Result [facility] [address] [place] [address], * (ABNORMAL) Basic metabolic panel (05/08/2024 5:45 AM EST) [facility] Sodium 140 133 - 145 mmol/L LAB CHEMISTRY METHOD 05/08/2024 12:00 PM [facility] Potassium 5.6(H) 3.5 - 5.5 mmol/L LAB CHEMISTRY METHOD 05/08/2024 12:00 PM [facility] Comment:Hemolysis present Chloride 110 96 - 110 mmol/L LAB CHEMISTRY METHOD 05/08/2024 12:00 PM [facility] CO2 28 21 - 32 mmol/L LAB CHEMISTRY METHOD 05/08/2024 12:00 PM [facility] Anion Gap 2(L) 3 - 11 LAB CHEMISTRY METHOD 05/08/2024 12:00 PM [facility] Glucose 67(L) 70 - 100 mg/dL LAB CHEMISTRY METHOD 05/08/2024 12:00 PM [facility] BUN 25 5 - 25 mg/dL LAB CHEMISTRY METHOD 05/08/2024 12:00 PM [facility] Creatinine 0.92 0.50 - 1.10 mg/dL LAB CHEMISTRY METHOD 05/08/2024 12:00 PM [facility] eGFR 68 >=60 mL/min/1. 73m2 LAB CHEMISTRY METHOD 05/08/2024 12:00 PM [facility] Comment:Calculation based on the??Chronic Kidney Disease Epidemiology Collaboration (CKD-EPI) equation refit??without adjustment for race. BUN/Creatinine Ratio 27.2 LAB CHEMISTRY METHOD 05/08/2024 12:00 PM [facility] Calcium 8.5 8.5 - 10.5 mg/dL LAB CHEMISTRY METHOD 05/08/2024 12:00 PM [facility] Blood Venous blood specimen / Unknown Venipuncture / Unknown 05/08/2024 5:45 AM EST 05/08/2024 12:00 PM EST us Glen Pugh MD LAB BLOOD ORDERABLES Final Result [facility] [address] [place] [address], * (ABNORMAL) [id number], RSV, Influenza A and B qualitative RT-PCR (04/23/2024 12:00 AM EST) SARS COV-2 Not Detected Not Detected LAB MOLECULAR DIAGNOSTICS METHOD 04/24/2024 1:02 PM [facility] Comment: Disclaimer: The manner in which this information is used to guide patient care is the responsibility of the healthcare provider. Testing was performed using the [employer] m SARS-CoV-2 test. This test has been authorized by FDA under an Emergency Use Authorization (EUA). This test is only authorized for the duration of time the declaration that circumstances exist justifying the authorization of the emergency use of in vitro diagnostic tests for detection of SARS-CoV-2 virus and/or diagnosis of COVID-19 infection under section 564(b)(1) of the Act, 21 U.S.C. 360bbb- 3(b)(1), unless the authorization is terminated or revoked sooner. Fact sheet for Healthcare Providers can be found at: https://www.fda.gov/media/059858/download Fact sheet for Patients can be found at: https://www.fda.gov/media/780311/download Influenza A PCR Not Detected Not Detected LAB MOLECULAR DIAGNOSTICS METHOD 04/24/2024 1:02 PM [facility] Influenza B PCR Not Detected Not Detected LAB MOLECULAR DIAGNOSTICS METHOD 04/24/2024 1:02 PM [facility] RSV PCR Detected(A ) Not Detected LAB MOLECULAR DIAGNOSTICS METHOD 04/24/2024 1:02 PM [facility] Swab Nasopharyngeal structure / Unknown Non-blood Collection / Unknown 04/23/2024 04/24/2024 9:42 AM EST us Glen Pugh MD LAB MICROBIOLOGY - GENERAL ORDERABLES Final Result [facility] [address] [place] [address], * MG Mammo Digital Screening w Sulaiman bilat (04/16/2024 9:35 AM EST) Anatomical Region Laterality Modality Breast Bilateral Mammography 04/16/2024 9:33 AM EST Impressions 04/16/2024 9:37 AM EST No mammographic evidence of malignancy. A negative mammogram in the presence of a clinically suspicious palpable abnormality does not preclude the possibility of malignancy or alter the indications for biopsy. PQRI CPT II 3342F Code 42263, 18165 PQRI 225 CPT II 7025F TISSUE DENSITY: There are scattered areas of fibroglandular density. (BI-RADS category B) IMPRESSION: Benign. BI-RADS CATEGORY: 2 - BENIGN RECOMMENDATION: Screening bilateral mammogram is recommended in 1 year. Mammo Location: [facility], [facility], [address] [place] [address] -------- FINAL REPORT -------- Dictated By: Vitaly Ho Dictated Date: 04/16/2024 09:33 ET Assigned Physician: Vitaly Ho Reviewed and Electronically Signed By: Vitaly Ho Signed Date: 04/16/2024 09:37 ET Workstation ID: [id number] Transcribed By: Self Edit Transcribed Date: 04/16/2024 09:33 ET Narrative 04/16/2024 9:37 AM EST CLINICAL: The patient is a 68 years Female presenting for routine screening mammography. COMPARISON: 04/14/2023. ?? TECHNIQUE: Full-field digital mammography of the breasts bilaterally consisting of tomosynthesis in MLO and CC projection is performed in the [employer] 2000-D unit. ??Computer aided detection utilizing the iCAD system was utilized. FINDINGS: The breasts are again seen to be composed of a combination of fatty and fibroglandular elements. ??A group of microcalcifications in the right breast retroareolar area is stable and remains of benign appearance, likely an involuting fibroadenoma or an area of fat necrosis. ??Other bilateral calcifications are again seen, most if not all of which are dermal. ??There is no suspicious cluster of microcalcifications, mass, or area of architectural distortion. There is no skin thickening or nipple retraction. Procedure Note Vitaly Ho MD - 04/16/2024 CLINICAL: The patient is a 68 years Female presenting for routinescreening mammography. COMPARISON: 04/14/2023. TECHNIQUE: Full-field digital mammography of the breasts bilaterallyconsisting of tomosynthesis in MLO and CC projection is performed in the[employer] 2000-D unit. Computer aided detection utilizing the [employer] was utilized. FINDINGS: The breasts are again seen to be composed of a combination offatty and fibroglandular elements. A group of microcalcifications in theright breast retroareolar area is stable and remains of benign appearance,likely an involuting fibroadenoma or an area of fat necrosis. Otherbilateral calcifications are again seen, most if not all of which aredermal. There is no suspicious cluster of microcalcifications, mass, orarea of architectural distortion. There is no skin thickening or nippleretraction. IMPRESSION: No mammographic evidence of malignancy. A negative mammogram in the presence of a clinically suspicious palpableabnormality does not preclude the possibility of malignancy or alter theindications for biopsy. PQRI CPT II 3342F Code 26720, 34321 PQRI 225 CPT II 7025F TISSUE DENSITY: There are scattered areas of fibroglandular density.(BI-RADS category B) IMPRESSION: Benign. BI-RADS CATEGORY: 2 - BENIGN RECOMMENDATION: Screening bilateral mammogram is recommended in 1 year. Mammo Location: [facility], [facility], [address] [place] [id number] -------- FINAL REPORT -------- Dictated By: Vitaly Ho Dictated Date: 04/16/2024 09:33 ET Assigned Physician: Vitaly Ho Reviewed and Electronically Signed By: Vitaly Ho Signed Date: 04/16/2024 09:37 ET Workstation ID: [id number] Transcribed By: Self Edit Transcribed Date: 04/16/2024 09:33 ET us Self Referral Sppl IMG BI PROCEDURES Final Resul t * BD Bone Density DXA Axial Skeleton (03/08/2024 9:52 AM EST) Anatomical Region Laterality Modality Wrist, Hip, L-spine Bone Densito metry 03/08/2024 11:0 5 AM EST Impressions 03/08/2024 11:08 AM EST 1. Osteoporosis. ??There has been a decrease of 0.9% in bone mineral density in the lumbar spine since the prior examination of 06/29/2021. ??There has been a decrease of 4.8% in bone mineral density in the left femur. 2. FRAX analysis yields a 10-year probability of major osteoporotic fracture of 27.0% and a 10-year probability of hip fracture of 11.1%. Code 04901 -------- FINAL REPORT -------- Dictated By: Vitaly Ho Dictated Date: 03/08/2024 11:05 ET Assigned Physician: Vitaly Ho Reviewed and Electronically Signed By: Vitaly Ho Signed Date: 03/08/2024 11:08 ET Workstation ID: [id number] Transcribed By: Self Edit Transcribed Date: 03/08/2024 11:05 ET Narrative 03/08/2024 11:08 AM EST HISTORY: ??The patient is a 68-year-old postmenopausal female smoker with clinical concern for metabolic bone disease. FINDINGS: ??Dual energy x-ray absorptiometry of the lumbar spine and left femur is performed. The mean bone mineral density at L1-3 is 0.991 gm/cm2 which is 85% of that of young normals and 101% of that of age matched controls. This yields a T-score of -1.5 and a Z-score of 0.1 which is diagnostic of osteopenia. The mean bone mineral density of the left femur is 0.766 gm/cm2 which is 76% of that of young normals and 91% of that of age matched controls. ??This yields a T- score of -1.9 and a Z-score of -0.6 which is diagnostic of osteopenia. However, the T- score of the left femoral neck is -2.7 which is diagnostic of osteoporosis. Procedure Note Vitaly Ho MD - 03/08/2024 HISTORY: The patient is a 68-year-old postmenopausal female smoker withclinical concern for metabolic bone disease. FINDINGS: Dual energy x-ray absorptiometry of the lumbar spine and leftfemur is performed. The mean bone mineral density at L1-3 is 0.991 gm/jl5hfdsl is 85% of that of young normals and 101% of that of age matchedcontrols. This yields a T-score of -1.5 and a Z-score of 0.1 which isdiagnostic of osteopenia. The mean bone mineral density of the left femur is 0.766 gm/cm2 which is76% of that of young normals and 91% of that of age matched controls.This yields a T-score of -1.9 and a Z-score of -0.6 which is diagnostic ofosteopenia. However, the T- score of the left femoral neck is -2.7 which isdiagnostic of osteoporosis. IMPRESSION: 1. Osteoporosis. There has been a decrease of 0.9% in bone mineraldensity in the lumbar spine since the prior examination of 06/29/2021.There has been a decrease of 4.8% in bone mineral density in the leftfemur. 2. FRAX analysis yields a 10-year probability of major osteoporoticfracture of 27.0% and a 10-year probability of hip fracture of 11.1%. Code 14243 -------- FINAL REPORT -------- Dictated By: Vitaly Ho Dictated Date: 03/08/2024 11:05 ET Assigned Physician: Vitaly Ho Reviewed and Electronically Signed By: Vitaly Ho Signed Date: 03/08/2024 11:08 ET Workstation ID: [id number] Transcribed By: Self Edit Transcribed Date: 03/08/2024 11:05 ET Glen Pugh MD [facility] DXA PROCEDURES Final R esult from Last 3 Months Insurance MEDICA[place] - [place] [employer] MEDICARE ADVANTAGE Care Teams Nursing Agency Manager Relationship Specialty Start Date End Date Glen Pugh MD [address] [place] [address] PCP - General 10/14/23
--- OUTSIDE RECORDS SUMMARY | 2024-05-25 09:12 | XMS_ITS | Encounter Summary ---
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; Unspecified convulsions (CMS/HCC); Alcohol use, 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); Atherosclerotic heart disease of [place] coronary artery without angina pectoris; Other pulmonary embolism without acute cor pulmonale (CMS/HCC) Social History Tobacco Use Types Packs/Day Years Used Date Smoking Tobacco: Never Assessed Comments No Sex and Gender Information Value Date Recorded Sex Assigned at Not on file Legal Sex Female 11:49 PM EST Gender Identity Not on file Sexual Orientation Not on file documented as of this encounter Plan of Treatment Not on file documented as of this encounter Procedures Procedure Name Priority Date/Time Associated Diagnosis Comments COMPLETE BLOOD COUNT Routine 05/08/2024 5:45 AM EST Essential (primary) hypertension Type 2 diabetes mellitus without complications (CMS/HCC) Other long-term (current) 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 Unspecified convulsions (CMS/HCC) Alcohol use, 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 Other pulmonary embolism without acute cor pulmonale (CMS/HCC) PHENYTOIN LEVEL, TOTAL Routine 05/08/2024 5:45 AM EST Essential (primary) hypertension Type 2 diabetes mellitus without complications (CMS/HCC) Other long-term (current) 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 Unspecified convulsions (CMS/HCC) Alcohol use, 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 Other pulmonary embolism without acute cor pulmonale (CMS/HCC) VALPROIC ACID LEVEL, TOTAL Routine 05/08/2024 5:45 AM EST Essential (primary) hypertension Type 2 diabetes mellitus without complications (CMS/HCC) 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 Unspecified convulsions (CMS/HCC) Alcohol use, 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 Other pulmonary embolism without acute cor pulmonale (CMS/HCC) HEPATIC FUNCTION PANEL Routine 05/08/2024 5:45 AM EST Essential (primary) hypertension Type 2 diabetes mellitus without complications (CMS/HCC) Other long-term (current) 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 Unspecified convulsions (CMS/HCC) Alcohol use, 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 Other pulmonary embolism without acute cor pulmonale (CMS/HCC) BASIC METABOLIC PANEL Routine 05/08/2024 5:45 AM EST Essential (primary) hypertension Type 2 diabetes mellitus without complications (CMS/HCC) Other long-term (current) 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 Unspecified convulsions (CMS/HCC) Alcohol use, 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 Other pulmonary embolism without acute cor pulmonale (CMS/HCC) documented in this encounter Results * (ABNORMAL) Valproic acid level, total (05/08/2024 5:45 AM EST) Pathologist [facility] Valproic Acid, Total 42(L) 50 - 100 mcg/mL LAB CHEMISTRY METHOD 05/08/2024 12:00 PM EST [facility] Blood Venous blood specimen / Unknown Venipuncture / Unknown 05/08/2024 5:45 AM EST 05/08/2024 12:00 PM EST us Glen Pugh MD LAB BLOOD ORDERABLES Final Result [facility] [address] [place] [address], [place] [phone] * Phenytoin level total (05/08/2024 5:45 AM EST) [facility] Phenytoin Level 13.2 10.0 - 20.0 mcg/mL LAB CHEMISTRY METHOD 05/08/2024 12:00 PM EST [facility] Blood Venous blood specimen / Unknown Venipuncture / Unknown 05/08/2024 5:45 AM EST 05/08/2024 12:00 PM EST us Glen Pugh MD LAB BLOOD ORDERABLES Final Result [facility] [address] [place] [address], [place] [phone] * (ABNORMAL) Hepatic function panel (05/08/2024 5:45 AM EST) Pathologist [facility] Total Protein 6.1 6.0 - 8.0 g/dL LAB CHEMISTRY METHOD 05/08/2024 12:00 PM EST [facility] Albumin 3.0(L) 3.2 - 5.0 g/dL LAB CHEMISTRY METHOD 05/08/2024 12:00 PM EST [facility] Total Bilirubin 0.2 0.0 - 1.4 mg/dL LAB CHEMISTRY METHOD 05/08/2024 12:00 PM [facility] Bilirubin, Direct <0.1 0.0 - 0.3 mg/dL LAB CHEMISTRY METHOD 05/08/2024 12:00 PM [facility] Bilirubin, Indirect LAB CHEMISTRY METHOD 05/08/2024 12:00 PM [facility] Comment:Unable to calculate Indirect Bilirubin. ALT (SGPT) 22 10 - 60 unit/L LAB CHEMISTRY METHOD 05/08/2024 12:00 PM [facility] AST (SGOT) 23 10 - 42 unit/L LAB CHEMISTRY METHOD 05/08/2024 12:00 PM [facility] Comment:Hemolysis present Alkaline Phosphatase 98 42 - 121 unit/L LAB CHEMISTRY METHOD 05/08/2024 12:00 PM [facility] Blood Venous blood specimen / Unknown Venipuncture / Unknown 05/08/2024 5:45 AM EST 05/08/2024 12:00 PM EST us Glen Pugh MD LAB BLOOD ORDERABLES Final Result [facility] [address] [place] [address], * (ABNORMAL) Basic metabolic panel (05/08/2024 5:45 AM EST) Sodium 140 133 - 145 mmol/L LAB CHEMISTRY METHOD 05/08/2024 12:00 PM [facility] Potassium 5.6(H) 3.5 - 5.5 mmol/L LAB CHEMISTRY METHOD 05/08/2024 12:00 PM [facility] Comment:Hemolysis present Chloride 110 96 - 110 mmol/L LAB CHEMISTRY METHOD 05/08/2024 12:00 PM [facility] CO2 28 21 - 32 mmol/L LAB CHEMISTRY METHOD 05/08/2024 12:00 PM [facility] Anion Gap 2(L) 3 - 11 LAB CHEMISTRY METHOD 05/08/2024 12:00 PM [facility] Glucose 67(L) 70 - 100 mg/dL LAB CHEMISTRY METHOD 05/08/2024 12:00 PM [facility] BUN 25 5 - 25 mg/dL LAB CHEMISTRY METHOD 05/08/2024 12:00 PM [facility] Creatinine 0.92 0.50 - 1.10 mg/dL LAB CHEMISTRY METHOD 05/08/2024 12:00 PM [facility] eGFR 68 >=60 mL/min/1. 73m2 LAB CHEMISTRY METHOD 05/08/2024 12:00 PM [facility] Comment:Calculation based on the??Chronic Kidney Disease Epidemiology Collaboration (CKD-EPI) equation refit??without adjustment for race. BUN/Creatinine Ratio 27.2 LAB CHEMISTRY METHOD 05/08/2024 12:00 PM [facility] Calcium 8.5 8.5 - 10.5 mg/dL LAB CHEMISTRY METHOD 05/08/2024 12:00 PM [facility] Blood Venous blood specimen / Unknown Venipuncture / Unknown 05/08/2024 5:45 AM EST 05/08/2024 12:00 PM EST Glen Pugh MD LAB BLOOD ORDERABLES Final Result [facility] [address] [place] [address], * (ABNORMAL) Complete blood count (05/08/2024 5:45 AM EST) WBC 5.0 4.8 - 10.8 K/mcL LAB HEMETOLOGY METHOD 05/08/2024 1:27 PM [facility] RBC 3.50(L) 3.80 - 4.80 M/mcL LAB HEMETOLOGY METHOD 05/08/2024 1:27 PM [facility] Hemoglobin 11.7 11.5 - 16.0 g/dL LAB HEMETOLOGY METHOD 05/08/2024 1:27 PM [facility] Hematocrit 36.8 35.0 - 47.0 % LAB HEMETOLOGY METHOD 05/08/2024 1:27 PM [facility] MCV 105.4(H) 79.0 - 98.0 FL LAB HEMETOLOGY METHOD 05/08/2024 1:27 PM [facility] MCH 33.5(H) 27.0 - 32.0 pcg LAB HEMETOLOGY METHOD 05/08/2024 1:27 PM [facility] MCHC 31.8(L) 32.0 - 37.0 g/dL LAB HEMETOLOGY METHOD 05/08/2024 1:27 PM [facility] RDW 13.5 11.0 - 15.0 % LAB HEMETOLOGY METHOD 05/08/2024 1:27 PM [facility] Platelets 234 130 - 400 K/mcL LAB HEMETOLOGY METHOD 05/08/2024 1:27 PM [facility] MPV 10.4 7.0 - 11.0 FL LAB HEMETOLOGY METHOD 05/08/2024 1:27 PM [facility] NRBC 0.0 <1.0 % LAB HEMETOLOGY METHOD 05/08/2024 1:27 PM [facility] NRBC Absolute 0.00 <0.10 K/mcL LAB HEMETOLOGY METHOD 05/08/2024 1:27 PM [facility] Blood Venous blood specimen / Unknown Venipuncture / Unknown 05/08/2024 5:45 AM EST 05/08/2024 12:00 PM EST us Glen Pugh MD LAB BLOOD ORDERABLES Final Result [facility] [address] [place] [address], documented in this encounter Visit Diagnoses Diagnosis Essential (primary) hypertension Unspecified essential hypertension Type 2 diabetes mellitus without complications (CMS/HCC) Other long-term (current) 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 Unspecified convulsions (CMS/HCC) Alcohol use, 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
--- OUTSIDE RECORDS SUMMARY | 2024-05-25 09:12 | XMS_ITS | Encounter Summary ---
Author Organization [facility] [place] [address] Care Team Providers Care B2B Account Executive Name Role Phone Glen Pugh MD Primary Care Provider +1- [phone] Encounter Details Date Type Department Care Team (Late st Contact Info) Description 04/24/2024 Lab Requisition [facility] - Main Lab [address] [facility] [place] [phone] Glen Pugh MD [address] [place], [place] [phone] Shortness of breath; Acute cough Social History Tobacco Use Types Packs/Day Years [...] Procedure Name Priority Date/Time Associated Diagnosis Comments [id number], RSV, FLU A AND B QUALITATIVE RT-PCR, LOCAL REFERENCE LAB Routine 04/23/2024 12:00 AM EST Shortness of breath Acute cough documented in this encounter Results * (ABNORMAL) [id number], RSV, Influenza A and B qualitative RT-PCR (04/23/2024 12:00 AM EST) SARS COV-2 Not Detected Not Detected LAB MOLECULAR DIAGNOSTICS METHOD 04/24/2024 1:02 PM [facility] Comment: Disclaimer: The manner in which this information is used to guide patient care is the responsibility of the healthcare provider. Testing was performed using the [employer] Alinity m SARS-CoV-2 test. This test has been authorized by [facility] under an Emergency Use Authorization (EUA). This [...] for Healthcare Providers can be found at: https://www.fda.gov/media/968094/download Fact sheet for Patients can be found at: https://www.fda.gov/media/338858/download Influenza A PCR Not Detected Not Detected LAB MOLECULAR DIAGNOSTICS METHOD 04/24/2024 1:02 PM [facility] Influenza B PCR Not Detected Not Detected LAB MOLECULAR DIAGNOSTICS METHOD 04/24/2024 1:02 PM [facility] RSV PCR Detected(A ) Not Detected LAB MOLECULAR DIAGNOSTICS METHOD 04/24/2024 1:02 PM [facility] Swab Nasopharyngeal structure / Unknown Non-blood Collection / Unknown 04/23/2024 04/24/2024 9:42 AM EST us Glen Pugh MD LAB MICROBIOLOGY - GENERAL ORDERABLES Final Result [facility] [address] [place] [address], documented in this encounter Visit Diagnoses Diagnosis Shortness of breath Acute cough documented in this encounter Additional Health Concerns Infection Onset Date Last Indicated Resolved Time Respiratory Rule-Out 04/23/2024 04/23/2024 025 1:02 PM EST RSV 04/23/2024 04/23/2024 05/17/2024 7:04 PM EST documented as of this encounter Care Teams B2B Account Executive Relationship Specialty Start Date End Date Glen Pugh MD [address] [place] [address] PCP - General 10/14/23 documented as of this encounter
== END 2024-05-25 09:26 | disposition home or self-care (01) ==
PROVIDERS: PCP Internal Medicine; Visit Provider Nurse Practitioner Family
DX: I25.10 Atherosclerotic heart disease of native coronary artery without angina pectoris (principal); I35.0 Nonrheumatic aortic (valve) stenosis; I10 Essential (primary) hypertension; F17.200 Nicotine dependence, unspecified, uncomplicated; R94.31 Abnormal electrocardiogram [ECG] [EKG]
CPT/HCPCS: 93010; 99214; G2211

== ENCOUNTER → 2024-05-25 08:39 | Outpatient (BNVA) | payer MEDICARE, SELFPAY | PROVIDERS: PCP Internal Medicine; Visit Provider Nurse Practitioner Family | DX: I25.10 Atherosclerotic heart disease of native coronary artery without angina pectoris (principal); I10 Essential (primary) hypertension; I35.0 Nonrheumatic aortic (valve) stenosis; R94.31 Abnormal electrocardiogram [ECG] [EKG]; F17.210 Nicotine dependence, cigarettes, uncomplicated | CPT/HCPCS: 93005; 99212 ==

== ENCOUNTER → 2024-06-13 09:49 | Outpatient (REF) | payer MEDICARE, SELFPAY ==
--- NOTE | 2024-06-13 09:57 | CA_ITS ---
Transthoracic Echocardiogram Patient (Last, First, Middle): Cielo Thomas C Gender: Female Date of : 1955 Age: 68 Procedure Date: 06/13/2024 Procedure Type: Transthoracic Echocardiogram Location: OP Height: 162.56 cm Weight: 78.93 kg BSA: 1.84 m2 Heart Rate: bpm BP: 150 / 66 mmHg Groundman: LUIS Referring MD: Danni Torres REFERENCE ASSISTANT-Vincent Watch Engine Operator: Dell Salmon MD Symptoms: I35.0 - Nonrheumatic aortic (valve) stenosis Study Quality: Adequate ECG Rhythm: Sinus Conclusions: - 1. Normal LV ejection fraction of 60-65% with mild LVH with impaired relaxation filling pattern 2. Kyfm-wp-[id number] aortic stenosis based on this study 3. No gross pericardial effusion Findings Left Ventricle Normal left ventricular size and systolic function. There is mildly increased left ventricular wall thickness. The visually estimated ejection fraction is between 60-65%. Spectral Doppler is indicative of an impaired relaxation filling pattern. E/E prime ratio is between 8 and 15 consistent with indeterminate filling pressures. There is moderate septal asymmetric hypertrophy. Wall Motion Rest Echo Findings The basal inferior segment is akinetic. All other scored wall segments showed normal motion. Right Ventricle Normal right ventricular cavity size and systolic function. Atria The left atrium is moderately dilated. There is no evidence of interatrial shunt. The right atrium is likely dilated. Aortic Valve There is moderate calcification of the aortic valve. There is mild to moderate aortic valve stenosis. The peak aortic gradient is 19 mmHg.The mean gradient is 12 mmHg. The aortic valve area is 1.30 cm2. There is no aortic valve regurgitation. Mitral Valve There is mild anterior and moderate posterior mitral leaflet thickening. There is moderate mitral annular calcification. There is mild mitral valve regurgitation. There is no mitral valve stenosis. Pulmonic Valve The pulmonic valve was not well visualized. Tricuspid Valve Likely normal tricuspid valve structure and function. Tricuspid regurgitation envelope is inadequate for calculation of right ventricular systolic pressure. Normal right atrial pressure. Great Vessels All visible segments of the aorta are normal in size. The pulmonary artery was not well visualized. There is no dilatation of the ascending aorta measuring 3.40 cm. Venous The inferior vena cava is normal in size and collapses greater than 50% with inspiration. Pericardium/Pleural There is no evidence of pericardial effusion. Measurements 2D Linear Measurements IVSd: 1.21 0.6-0.9/0.6-1.0 cm LVIDd: 5.07 3.9-5.3/4.2-5.9 cm LVIDd Index: 2.76 2.4-3.2/2.2-3.1 cm/m2 LVIDs: 3.43 2.0-3.6 cm LVPWd: 1.14 0.7-1.1 cm LA Diam: 4.00 2.7-3.8/3.0-4.0 cm LAIDs Index: 2.17 1.5-2.3 cm/m2 LV Mass: 289.32 67-162/88-224 g LV Mass Index: 157.24 43-95/49-115 g/m2 LVOT Diam: 2.20 3.0+(-)1.3 cm 2D Systolic Function EF 4C: 64.60 >55% EF 2C: 57.00 >55% EF BiP: 60.80 >55% Mitral Valve MV Pk E: 0.51 MV PK A: 1.02 MV Decel Time: 260.00 E/A: 0.50 E'Lateral: 3.15 E'Medial: 2.83 E/E' Med: 17.90 E/E' Lat: 16.10 PHT: 76.00 MVA PHT: 2.89 Decel [place]one[place]: 1.95 Aortic Valve AoV Pk Chuck: 2.19 AoV Mn Chuck: 1.62 AoV VTI: 0.51 AoV Pk Grad: 19.00 Aov Mn Grad: 12.00 MACKENZIE Cont.VTI: 1.30 LVOT LVOT Pk Chuck: 0.84 LVOT Mn Chuck: 0.59 LVOT VTI: 0.18 LVOT Pk Grad: 3.00 LVOT Mn Grad: 2.00 LVOT Diam: 2.20 LVOT Area: 3.80 Diastolic Function MV Pk E: 0.51 MV Pk A: 1.02 E/A: 0.50 E'Medial: 2.83 E/E' Med: 17.90 E' Laterial: 3.15 E/E' Lat: 16.10 Right Ventricle TAPSE (mm): 21.20 TVS' Chuck: 10.20 Tricuspid Valve RA Press: 3.00 Great Vessels Aorta Sinus of Valsalva: 3.00 2.0-3.[address] Ridge: 2.04 1.7-3.4 cm Ao Asc: 3.40 2.1-3.4 cm Updated in Other Vendor System with Status of Final Dell Salmon MD electronically signed on 06/13/2024 4:12:17 PM with status of Final
--- OUTSIDE RECORDS SUMMARY | 2024-06-13 11:07 | XMS_ITS | Encounter Summary ---
Author Organization [facility] [place] [address] Care Team Providers Care Want Ad Clerk Name Role Phone Glen Pugh MD Primary Care Provider +1- [phone] Encounter Details Date Type Department Care Team (Late st Contact Info) Description 04/24/[address] [facility] - Main Lab [address] [facility] [place] [phone] Glen Pugh MD [address] [place], [place] [phone] Shortness of breath; Acute cough Social History [...] Procedure Name Priority Date/Time Associated Diagnosis Comments [id number], RSV, FLU A AND B QUALITATIVE RT-PCR, LOCAL REFERENCE LAB Routine 04/23/2024 12:00 AM EST Shortness of breath Acute cough documented in this encounter Results * (ABNORMAL) [id number], RSV, Influenza A and B qualitative RT-PCR (04/23/2024 12:00 AM EST) SARS COV-2 Not Detected Not Detected LAB MOLECULAR DIAGNOSTICS METHOD 04/24/2024 1:02 PM [facility] Comment: Disclaimer: The manner in which this information is used to guide patient care is the responsibility of the healthcare provider. Testing was performed using the [employer] Alinity m SARS-CoV-2 test. This test has been authorized by [facility] under an Emergency Use Authorization (EUA). This [...] for Healthcare Providers can be found at: https://www.fda.gov/media/355069/download Fact sheet for Patients can be found at: https://www.fda.gov/media/836780/download Influenza A PCR Not Detected Not Detected LAB MOLECULAR DIAGNOSTICS METHOD 04/24/2024 1:02 PM [facility] Influenza B PCR Not Detected Not Detected LAB MOLECULAR DIAGNOSTICS METHOD 04/24/2024 1:02 PM [facility] RSV PCR Detected(A ) Not Detected LAB MOLECULAR DIAGNOSTICS METHOD 04/24/2024 1:02 PM [facility] Swab Nasopharyngeal structure / Unknown Non-blood Collection / Unknown 04/23/2024 04/24/2024 9:42 AM EST us Glen Pugh MD LAB MICROBIOLOGY - GENERAL ORDERABLES Final Result [facility] [address] [place] [address], documented in this encounter Visit Diagnoses Diagnosis Shortness of breath Acute cough documented in this encounter Additional Health Concerns Infection Onset Date Last Indicated Resolved Time Respiratory Rule-Out 04/23/2024 04/23/2024 025 1:02 PM EST RSV 04/23/2024 04/23/2024 05/17/2024 7:04 PM EST documented as of this encounter Care Teams Want Ad Clerk Relationship Specialty Start Date End Date Glen Pugh MD [address] [place] [address] PCP - General 10/14/23 documented as of this encounter
--- OUTSIDE RECORDS SUMMARY | 2024-06-13 11:07 | XMS_ITS | Encounter Summary ---
Author Organization [facility] [place] [address] Care Team Providers Care Receipt And Report Clerk Name Role Phone Glen Pugh MD Primary Care Provider [phone]- [phone] Encounter Details Date Type Department Care Team (Late st Contact Info) Description 06/05/2024 Lab Requisition [facility] - Main Lab [address] [facility] [place] [phone] Glen Pugh MD [address] [place], [place] [id number] Type 2 diabetes mellitus without complications (CMS/HCC); Essential (primary) hypertension; Atherosclerotic heart disease of shawnee coronary artery without angina pectoris; Hyperlipidemia, unspecified Social History Tobacco Use Types Packs/Day Years [...] Procedure Name Priority Date/Time Associated Diagnosis Comments LIPID PANEL WITH REFLEX TO DIRECT LDL Routine 06/05/2024 8:07 AM EDT Type 2 diabetes mellitus without complications (CMS/HCC) Essential (primary) hypertension Atherosclerotic heart disease of sh[place] coronary artery without angina pectoris Hyperlipidemia, unspecified FOLATE Routine 06/05/2024 8:07 AM EDT Type 2 diabetes mellitus without complications (CMS/HCC) Essential (primary) hypertension Atherosclerotic heart disease of sh[place] coronary artery without angina pectoris Hyperlipidemia, unspecified VITAMIN B12 Routine 06/05/2024 8:07 AM EDT Type 2 diabetes mellitus without complications (CMS/HCC) Essential (primary) hypertension Atherosclerotic heart disease of shaw[place] coronary artery without angina pectoris Hyperlipidemia, unspecified BASIC METABOLIC PANEL Routine 06/05/2024 8:07 AM EDT Type 2 diabetes mellitus without complications ([facility]/HCC) Essential (primary) hypertension Atherosclerotic heart disease of shawnee coronary artery without angina pectoris Hyperlipidemia, unspecified documented in this encounter Results * (ABNORMAL) Vitamin B12 (06/05/2024 8:07 AM EDT) Pathologist [facility] [place] Vitamin B-12 1,075(H) 250 - 900 pcg/mL LAB CHEMISTRY METHOD 06/05/2024 12:47 PM EDT [facility] Blood Venous blood specimen / Unknown Venipuncture / Unknown 06/05/2024 8:07 AM EDT 06/05/2024 11:02 AM EDT us Glen Pugh MD LAB BLOOD ORDERABLES Final Result Performing Organization Address [facility] Co de Phone Number [facility] [address] [place] [address], * (ABNORMAL) Folate (06/05/2024 8:07 AM EDT) Pathologist [facility] [place] Folate >20.0(H) 2.8 - 17.0 ng/ml LAB CHEMISTRY METHOD 06/05/2024 12:47 PM EDT [facility] Blood Venous blood specimen / Unknown Venipuncture / Unknown 06/05/2024 8:07 AM EDT 06/05/2024 11:02 AM EDT us Glen Pugh MD LAB BLOOD ORDERABLES Final Result [facility] [address] [place] [address], [place] [phone] * Lipid panel with reflex to direct LDL (06/05/2024 8:07 AM EDT) Cholesterol 159 0 - 200 mg/dL LAB CHEMISTRY METHOD 06/05/2024 12:47 PM EDT [facility] Triglycerides 99 0 - 150 mg/dL LAB CHEMISTRY METHOD 06/05/2024 12:47 PM EDT [facility] HDL 78 >=40 mg/dL LAB CHEMISTRY METHOD 06/05/2024 12:47 PM EDT [facility] LDL Calculated 61 0 - 100 mg/dL LAB CHEMISTRY METHOD 06/05/2024 12:47 PM EDT [facility] VLDL Cholesterol Irvin 19.8 mg/dL LAB CHEMISTRY METHOD 06/05/2024 12:47 PM EDT [facility] Non HDL Chol. (LDL+VLDL) 81 <145 mg/dL LAB CHEMISTRY METHOD 06/05/2024 12:47 PM EDT [facility] Chol/HDL Ratio 2.0 0.0 - 4.4 LAB CHEMISTRY METHOD 06/05/2024 12:47 PM EDT [facility] Blood Venous blood specimen / Unknown Venipuncture / Unknown 06/05/2024 8:07 AM EDT 06/05/2024 11:02 AM EDT Glen Pugh MD LAB BLOOD ORDERABLES Final Result [facility] [address] [place] [address], [place] [phone] * (ABNORMAL) Basic metabolic panel (06/05/2024 8:07 AM EDT) Sodium 141 133 - 145 mmol/L LAB CHEMISTRY METHOD 06/05/2024 12:21 PM [facility] Potassium 5.1 3.5 - 5.5 mmol/L LAB CHEMISTRY METHOD 06/05/2024 12:21 PM [facility] Chloride 108 96 - 110 mmol/L LAB CHEMISTRY METHOD 06/05/2024 12:21 PM [facility] CO2 28 21 - 32 mmol/L LAB CHEMISTRY METHOD 06/05/2024 12:21 PM [facility] Anion Gap 5 3 - 11 LAB CHEMISTRY METHOD 06/05/2024 12:21 PM [facility] Glucose 92 70 - 100 mg/dL LAB CHEMISTRY METHOD 06/05/2024 12:21 PM [facility] BUN 29(H) 5 - 25 mg/dL LAB CHEMISTRY METHOD 06/05/2024 12:21 PM [facility] Creatinine 0.95 0.50 - 1.10 mg/dL LAB CHEMISTRY METHOD 06/05/2024 12:21 PM [facility] eGFR 65 >=60 mL/min/1. 73m2 LAB CHEMISTRY METHOD 06/05/2024 12:21 PM [facility] Comment:Calculation based on the??Chronic Kidney Disease Epidemiology Collaboration (CKD-EPI) equation refit??without adjustment for race. BUN/Creatinine Ratio 30.5 LAB CHEMISTRY METHOD 06/05/2024 12:21 PM [facility] Calcium 8.9 8.5 - 10.5 mg/dL LAB CHEMISTRY METHOD 06/05/2024 12:21 PM [facility] Blood Venous blood specimen / Unknown Venipuncture / Unknown 06/05/2024 8:07 AM EDT 06/05/2024 11:02 AM EDT us Glen Pugh MD LAB BLOOD ORDERABLES Final Result [facility] [address] [place] [address], documented in this encounter Visit Diagnoses Diagnosis Type 2 diabetes mellitus without complications Essential (primary) hypertension Unspecified essential hypertension Atherosclerotic heart disease of sh[place] coronary artery without angina pectoris Hyperlipidemia, unspecified documented in this encounter Care Teams Receipt And Report Clerk Relationship Specialty Start Date End Date Glen Pugh MD [address] [place] [address] PCP - General 10/14/23 documented as of this encounter
--- OUTSIDE RECORDS SUMMARY | 2024-06-13 11:07 | XMS_ITS | Clinical Summary ---
Author Organization [facility] Address [address] [place] [address] Phone Care Team Providers Care Computer Information Science Professor Name Role Phone Glen Pugh MD Primary Care Provider +1- [phone] Encounters Date Type Department Care Team Description 06/05/2024 Lab Requisition [facility] Lab [address] [place] [phone] Glen Pugh MD Type 2 diabetes mellitus without complications (CMS/HCC); Essential (primary) hypertension; Atherosclerotic heart disease of 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 coronary artery without angina pectoris; Other pulmonary embolism without acute cor pulmonale (CMS/HCC) 04/24/2024 Lab Requisition [facility] Lab [address] [place] [phone] Glen Pugh MD Shortness of breath; Acute cough 04/16/2024 8:57 AM EST - 04/16/2024 11:59 PM EST Hospital [facility] [address] [phone] Encounter for screening mammogram for breast cancer Discharge Disposition: Home or Self Care from [...] - PCV20 or PCV21) 01/27/2022 01/27/2017, 04/19/2007 Colorectal Cancer Screening: Colonoscopy 02/21/2022 Depression Screening 02/21/2022 Falls Risk Assessment 02/21/2022 Hepatitis C Screening 02/21/2022 Medicare Annual Wellness Visit 02/21/2022 Social Influencers of Health Screening 02/21/2022 Diabetes: Annual Urine Albumin-Creatinine Ratio (uACR) 03/06/2022 Diabetes: Blood Sugar Control Test (HGBA1C) 03/06/2022 DTaP,Tdap,and Td Vaccines (3 - Td or Tdap) 07/24/2023 07/23/2013, 06/11/2005 COVID-19 Vaccine ( season) 2023 Influenza Vaccine (#1) 2023 , 04/21/2012, 11/24/2010, Additional history exists Diabetes: Annual GFR (Glomerular Filtration Rate) 06/05/2025 06/05/2024, 05/08/2024 Hypertension/CHF/CAD Annual BMP Blood Test 06/05/2025 06/05/2024, 05/08/2024 Breast Cancer Screening 04/16/2026 04/16/19 25, 04/14/2023, 06/28/2016, Additional history exists Cholesterol Screening (Lipid Panel) 06/05/2029 06/05/2024 RSV Immunization Patients 60+ Years Old (1 [...] Procedure Name Priority Date/Time Associated Diagnosis Comments VITAMIN B12 Routine 06/05/2024 8:07 AM EDT Type 2 diabetes mellitus without complications (CMS/HCC) Essential (primary) hypertension Atherosclerotic heart disease of [place] coronary artery without angina pectoris Hyperlipidemia, unspecified FOLATE Routine 06/05/2024 8:07 AM EDT Type 2 diabetes mellitus without complications (CMS/HCC) Essential (primary) hypertension Atherosclerotic heart disease of [place] coronary artery without angina pectoris Hyperlipidemia, unspecified LIPID PANEL WITH REFLEX TO DIRECT LDL Routine 06/05/2024 8:07 AM EDT Type 2 diabetes mellitus without complications (CMS/HCC) Essential (primary) hypertension Atherosclerotic heart disease of [place] coronary artery without angina pectoris Hyperlipidemia, unspecified BASIC METABOLIC PANEL Routine 06/05/2024 8:07 AM EDT Type 2 diabetes mellitus without complications (CMS/HCC) Essential (primary) hypertension Atherosclerotic heart disease of [place] coronary artery without angina pectoris Hyperlipidemia, unspecified VALPROIC ACID LEVEL, TOTAL Routine 05/08/2024 5:45 AM EST Essential (primary) hypertension Type 2 diabetes mellitus without complications (CMS/HCC) Other long term care administrator (current) 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 Unspecified convulsions (CMS/HCC) Alcohol use, 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) Atherosclerotic heart disease of 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 coronary artery without angina pectoris Other pulmonary embolism without acute cor pulmonale (CMS/HCC) BASIC METABOLIC PANEL Routine 05/08/2024 5:45 AM EST Essential (primary) hypertension Type 2 diabetes mellitus without complications (CMS/HCC) Other long term care administrator (current) 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 Unspecified convulsions (CMS/HCC) Alcohol use, 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) Atherosclerotic heart disease of [place] coronary artery without angina pectoris Other pulmonary embolism without acute cor pulmonale (CMS/HCC) COMPLETE BLOOD COUNT Routine 05/08/2024 5:45 AM EST Essential (primary) hypertension Type 2 diabetes mellitus without complications (CMS/HCC) Other long term care administrator (current) 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 Unspecified convulsions (CMS/HCC) Alcohol use, 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) Atherosclerotic heart disease of [place] coronary artery without angina pectoris Other pulmonary embolism without acute cor pulmonale (CMS/HCC) [id number], RSV, FLU A AND B QUALITATIVE RT-PCR, LOCAL REFERENCE LAB Routine 04/23/2024 12:00 AM EST Shortness of breath Acute cough MG MAMMO DIGITAL SCREENING W SULAIMAN BILAT Routine 04/16/2024 9:35 AM EST Encounter for screening mammogram for breast cancer BD BONE DENSITY DXA AXIAL SKELETON Routine 03/08/2024 9:52 AM EST Metabolic bone disease from Last 3 Months or Most Recently Relevant to Health Maintenance Results * Lipid panel with reflex to direct LDL (06/05/2024 8:07 AM EDT) Cholesterol 159 0 - 200 mg/dL LAB CHEMISTRY METHOD 06/05/2024 12:47 PM [facility] Triglycerides 99 0 - 150 mg/dL LAB CHEMISTRY METHOD 06/05/2024 12:47 PM T [facility] HDL 78 >=40 mg/dL LAB CHEMISTRY METHOD 06/05/2024 12:47 PM [facility] LDL Calculated 61 0 - 100 mg/dL LAB CHEMISTRY METHOD 06/05/2024 12:47 PM EDT [facility] VLDL Cholesterol Irvin 19.8 mg/dL LAB CHE[facility]STRY METHOD 06/05[facility]2024 [facility] Non HDL Chol. (LDL+VLDL) 81 <145 mg/dL LAB CHEMISTRY METHOD 06/05/2024 12:47 PM EDT [facility] Chol/HDL Ratio 2.0 0.0 - 4.4 LAB CHEMISTRY METHOD 06/05/2024 12:47 PM EDT [facility] Blood Venous blood specimen / Unknown Venipuncture / Unknown 06/05/2024 8:07 AM EDT 06/05/2024 11:02 AM EDT us Glen Pugh MD LAB BLOOD ORDERABLES Final Result Performing Organization Address City/[facility]/ZIP Co de Phone Number [facility] [address] [place] [address], [place] [phone] * (ABNORMAL) Folate (06/05/2024 8:07 AM EDT) Folate >20.0(H) 2.8 - 17.0 ng/ml LAB CHEMISTRY METHOD 06/05/2024 12:47 PM EDT [facility] Blood Venous blood specimen / Unknown Venipuncture / Unknown 06/05/2024 8:07 AM EDT 06/05/2024 11:02 AM EDT us Glen Pugh MD LAB BLOOD ORDERABLES Final Result Performing Organization Address [facility] Co de Phone Number [facility] [address] [place] [address], [place] [phone] * (ABNORMAL) Vitamin B12 (06/05/2024 8:07 AM EDT) Vitamin B-12 1,075(H) 250 - 900 pcg/mL LAB CHEMISTRY METHOD 06/05/2024 12:47 PM EDT [facility] Blood Venous blood specimen / Unknown Venipuncture / Unknown 06/05/2024 8:07 AM EDT 06/05/2024 11:02 AM EDT us Glen Pugh MD LAB BLOOD ORDERABLES Final Result Performing Organization Address City/[facility]/ZIP Co de Phone Number [facility] [address] [place] [address], [place] [phone] * (ABNORMAL) Basic metabolic panel (06/05/2024 8:07 AM EDT) Only the most recent of2 resultswithin the time period is included. Sodium 141 133 - 145 mmol/L LAB [...] Pugh MD LAB BLOOD ORDERABLES Final Result [facility] [address] [place] [address], * (ABNORMAL) Complete blood count (05/08/2024 5:45 AM EST) [facility] WBC 5.0 4.8 - 10.8 K/mcL LAB HEMETOLOGY METHOD 05/08/2024 1:27 PM [facility] RBC 3.50(L) 3.80 - 4.80 M/mcL LAB HEMETOLOGY METHOD 05/08/2024 1:27 PM [facility] Hemoglobin 11.7 11.5 - 16.0 g/dL LAB HEMETOLOGY METHOD 05/08/2024 1:27 PM [facility] Hematocrit 36.8 35.0 - 47.0 % LAB HEMETOLOGY METHOD 05/08/2024 1:27 PM [facility] MCV 105.4(H) 79.0 - 98.0 FL LAB HEMETOLOGY METHOD 05/08/2024 1:27 PM [facility] MCH 33.5(H) 27.0 - 32.0 pcg LAB HEMETOLOGY METHOD 05/08/2024 1:27 PM [facility] MCHC 31.8(L) 32.0 - 37.0 g/dL LAB HEMETOLOGY METHOD 05/08/2024 1:27 PM [facility] RDW 13.5 11.0 - 15.0 % LAB HEMETOLOGY METHOD 05/08/2024 1:27 PM [facility] Platelets 234 130 - 400 K/mcL LAB HEMETOLOGY METHOD 05/08/2024 1:27 PM EST [facility] MPV 10.4 7.0 - 11.0 FL LAB HEMETOLOGY METHOD 05/08/2024 1:27 PM EST [facility] NRBC 0.0 <1.0 % LAB HEMETOLOGY METHOD 05/08/2024 1:27 PM EST [facility] NRBC Absolute 0.00 <0.10 K/mcL LAB HEMETOLOGY METHOD 05/08/2024 1:27 PM EST [facility] Blood Venous blood specimen / Unknown Venipuncture / Unknown 05/08/2024 5:45 AM EST 05/08/2024 12:00 PM EST us Glen Pugh MD LAB BLOOD ORDERABLES Final Result Performing Organization Address City/[facility]/ZIP Co de Phone Number [facility] [address] [place] [address], * Phenytoin level total (05/08/2024 5:45 AM EST) Phenytoin Level 13.2 10.0 - 20.0 mcg/mL LAB CHEMISTRY METHOD 05/08/2024 12:00 PM [facility] Blood Venous blood specimen / Unknown Venipuncture / Unknown 05/08/2024 5:45 AM EST 05/08/2024 12:00 PM EST us Glen Pugh MD LAB BLOOD ORDERABLES Final Result [facility] [address] [place] [address], [place] [phone] * (ABNORMAL) Valproic acid level, total (05/08/2024 5:45 AM EST) Valproic Acid, Total 42(L) 50 - 100 mcg/mL LAB CHEMISTRY METHOD 05/08/2024 12:00 PM [facility] Blood Venous blood specimen / Unknown Venipuncture / Unknown 05/08/2024 5:45 AM EST 05/08/2024 12:00 PM EST us Glen Pugh MD LAB BLOOD ORDERABLES Final Result [facility] [address] [place] [address], [place] [phone] * (ABNORMAL) Hepatic function panel (05/08/2024 5:45 AM EST) Total Protein 6.1 6.0 - 8.0 g/dL LAB CHEMISTRY METHOD 05/08/2024 12:00 PM [facility] Albumin 3.0(L) 3.2 - 5.0 g/dL LAB CHEMISTRY METHOD 05/08/2024 12:00 PM [facility] Total Bilirubin 0.2 0.0 - 1.4 mg/dL LAB CHEMISTRY METHOD 05/08/2024 12:00 PM [facility] Bilirubin, Direct <0.1 0.0 - 0.3 mg/dL LAB CHEMISTRY METHOD 05/08/2024 12:00 PM [facility] Bilirubin, Indirect LAB CHEMISTRY METHOD 05/08/2024 12:00 PM [facility] Comment:Unable to calculate Indirect Bilirubin. ALT (SGPT) 22 10 - 60 unit/L LAB CHEMISTRY METHOD 05/08/2024 12:00 PM [facility] AST (SGOT) 23 10 - 42 unit/L LAB CHEMISTRY METHOD 05/08/2024 12:00 PM [facility] Comment:Hemolysis present Alkaline Phosphatase 98 42 - 121 unit/L LAB CHEMISTRY METHOD 05/08/2024 12:00 PM [facility] Blood Venous blood specimen / Unknown Venipuncture / Unknown 05/08/2024 5:45 AM EST 05/08/2024 12:00 PM EST Glen Pugh MD LAB BLOOD ORDERABLES Final Result [facility] [address] [place] [address], * (ABNORMAL) [id number], RSV, Influenza A and B qualitative RT-PCR (04/23/2024 12:00 AM EST) Pathologist [facility] SARS COV-2 Not Detected Not Detected LAB MOLECULAR DIAGNOSTICS METHOD 04/24/2024 1:02 PM EST [facility] Comment: Disclaimer: The manner in which this information is used to guide patient care is the responsibility of the healthcare provider. Testing was performed using the [employer] Alinity m SARS-CoV-2 test. This test has [...] for Healthcare Providers can be found at: https://www.fda.gov/media/208851/download Fact sheet for Patients can be found at: https://www.fda.gov/media/619999/download Influenza A PCR Not Detected Not Detected LAB MOLECULAR DIAGNOSTICS METHOD 04/24/2024 1:02 PM EST [facility] Influenza B PCR Not Detected Not Detected LAB MOLECULAR DIAGNOSTICS METHOD 04/24/2024 1:02 PM [facility] RSV PCR Detected(A ) Not Detected LAB MOLECULAR DIAGNOSTICS METHOD 04/24/2024 1:02 PM [facility] Swab Nasopharyngeal structure / Unknown Non-blood Collection / Unknown 04/23/2024 04/24/2024 9:42 AM EST us Glen Pugh MD LAB MICROBIOLOGY - GENERAL ORDERABLES Final Result [facility] ([facility] H[facility] LAB [address] [place] [address], * MG Mammo Digital Screening w Sulaiman bilat (04/16/2024 9:35 AM EST) Anatomical Region Laterality Modality Breast Bilateral Mammography 04/16/2024 9:33 AM EST Impressions 04/16/2024 9:37 AM EST No mammographic evidence of malignancy. A negative mammogram in the presence of a clinically suspicious palpable abnormality does not preclude the possibility of malignancy or alter the indications for biopsy. PQRI CPT II 3342F Code 36252, 77079 PQRI 225 CPT II 7025F TISSUE DENSITY: There are scattered areas of fibroglandular density. (BI-RADS category B) IMPRESSION: Benign. BI-RADS CATEGORY: 2 - BENIGN RECOMMENDATION: Screening bilateral mammogram is recommended in 1 year. Mammo Location: [facility], [facility], [address] [place] [id number] -------- FINAL REPORT -------- Dictated By: Vitaly Ho Dictated Date: 04/16/2024 09:33 ET Assigned Physician: Vitaly Ho Reviewed and Electronically Signed By: Vitaly Ho Signed Date: 04/16/2024 09:37 ET Workstation ID: [id number] Transcribed By: Self Edit Transcribed Date: 04/16/2024 09:33 ET Narrative 04/16/2024 9:37 AM EST CLINICAL: The patient is a 68 years Female presenting for routine screening mammography. COMPARISON: 04/14/2023. ?? TECHNIQUE: Full-field digital mammography of the breasts bilaterally consisting of tomosynthesis in MLO and CC projection is performed in the [employer] 2000-D unit. ??Computer aided detection utilizing the Mango DSPD system was utilized. FINDINGS: The breasts are [...] MLO and CC projection is performed in theOcean Seedographe 2000-D unit. Computer aided detection utilizing the EDF Renewable Energyystem was utilized. FINDINGS: The breasts are again [...] for biopsy. PQRI CPT II 3342F Code 81606, 09438 PQRI 225 CPT II 7025F TISSUE DENSITY: There are scattered areas of fibroglandular density.(BI-RADS category B) IMPRESSION: Benign. BI-RADS CATEGORY: 2 - BENIGN RECOMMENDATION: Screening bilateral mammogram is recommended in 1 year. Mammo Location: [facility], [facility], [address] [place] [id number] -------- FINAL REPORT -------- Dictated By: Vitaly Ho Dictated Date: 04/16/2024 09:33 ET Assigned Physician: Vitaly Ho Reviewed and Electronically Signed By: Vitaly Ho Signed Date: 04/16/2024 09:37 ET Workstation ID: [id number] Transcribed By: Self Edit Transcribed Date: 04/16/2024 [...] probability of hip fracture of 11.1%. Code 23237 -------- FINAL REPORT -------- Dictated By: Vitaly Ho Dictated Date: 03/08/2024 11:05 ET Assigned Physician: Vitaly Ho Reviewed and Electronically Signed By: Vitaly Ho Signed Date: 03/08/2024 11:08 ET Workstation ID: [id number] Transcribed By: Self Edit Transcribed Date: 03/08/2024 [...] bone mineral density at L1-3 is 0.991 gm/hm2opqis is 85% of that of young normals [...] probability of hip fracture of 11.1%. Code 88501 -------- FINAL REPORT -------- Dictated By: Vitaly Ho Dictated Date: 03/08/2024 11:05 ET Assigned Physician: Vitaly Ho Reviewed and Electronically Signed By: Vitaly Ho Signed Date: 03/08/2024 11:08 ET Workstation ID: [id number] Transcribed By: Self Edit Transcribed Date: 03/08/2024 11:05 ET Glen Pugh MD IMG DXA PROCEDURES Final R esult from Last 3 Months or Most Recently Relevant to Health Maintenance Insurance MEDICAID [place] [employer] MEDICARE ADVANTAGE [employer] MEDICARE Care Teams Computer Information Science Professor Relationship Specialty Start Date End Date Glen Pugh MD [address] [place] [address] PCP - General 10/14/23
--- OUTSIDE RECORDS SUMMARY | 2024-06-13 11:07 | XMS_ITS | Encounter Summary ---
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; Unspecified convulsions (CMS/HCC); Alcohol use, 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); Atherosclerotic heart disease of [place] coronary artery without angina pectoris; Other pulmonary [...] 2 diabetes mellitus without complications (CMS/HCC) Other jail (current) 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 Unspecified convulsions (CMS/HCC) Alcohol use, 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 Other pulmonary embolism without acute cor pulmonale (CMS/HCC) PHENYTOIN LEVEL, TOTAL Routine 05/08/2024 5:45 AM EST Essential (primary) hypertension Type 2 diabetes mellitus without complications (CMS/HCC) 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 harvesting supervisor (current) 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 Unspecified convulsions (CMS/HCC) Alcohol use, 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 Other pulmonary embolism without acute cor pulmonale (CMS/HCC) VALPROIC ACID LEVEL, TOTAL Routine 05/08/2024 5:45 AM EST Essential (primary) hypertension Type 2 diabetes mellitus without complications (CMS/HCC) 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 harvesting 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 (current) 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 Unspecified convulsions (CMS/HCC) Alcohol use, 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 Other pulmonary embolism without acute cor pulmonale (CMS/HCC) HEPATIC FUNCTION PANEL Routine 05/08/2024 5:45 AM EST Essential (primary) hypertension Type 2 diabetes mellitus without complications (CMS/HCC) Other jail (current) 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 Unspecified convulsions (CMS/HCC) Alcohol use, 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 Other pulmonary embolism without acute cor pulmonale (CMS/HCC) BASIC METABOLIC PANEL Routine 05/08/2024 5:45 AM EST Essential (primary) hypertension Type 2 diabetes mellitus without complications (CMS/HCC) 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 harvesting 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 (current) 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 Unspecified convulsions (CMS/HCC) Alcohol use, 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 Other pulmonary embolism without acute cor pulmonale (CMS/HCC) documented in this encounter Results * (ABNORMAL) Valproic acid level, total (05/08/2024 5:45 AM EST) Pathologist [facility] [place] Valproic Acid, Total 42(L) 50 - 100 mcg/mL LAB CHEMISTRY METHOD 05/08/2024 12:00 PM EST [facility] Blood Venous blood specimen / Unknown Venipuncture / Unknown 05/08/2024 5:45 AM EST 05/08/2024 12:00 PM EST us Glen Pugh MD LAB BLOOD ORDERABLES Final Result [facility] [address] [place] [address], [place] [phone] * Phenytoin level total (05/08/2024 5:45 AM EST) [facility] Phenytoin Level 13.2 10.0 - 20.0 mcg/mL LAB CHEMISTRY METHOD 05/08/2024 12:00 PM EST [facility] Blood Venous blood specimen / Unknown Venipuncture / Unknown 05/08/2024 5:45 AM EST 05/08/2024 12:00 PM EST us Glen Pugh MD LAB BLOOD ORDERABLES Final Result [facility] [address] [place] [address], [place] [phone] * (ABNORMAL) Hepatic function panel (05/08/2024 5:45 AM EST) Pathologist [facility] [place] Total Protein 6.1 6.0 - 8.0 g/dL LAB CHEMISTRY METHOD 05/08/2024 12:00 PM EST [facility] Albumin 3.0(L) 3.2 - 5.0 g/dL LAB CHEMISTRY METHOD 05/08/2024 12:00 PM EST [facility] Total Bilirubin 0.2 0.0 - 1.4 mg/dL LAB CHEMISTRY METHOD 05/08/2024 12:00 PM [facility] Bilirubin, Direct <0.1 0.0 - 0.3 mg/dL LAB CHEMISTRY METHOD 05/08/2024 12:00 PM [facility] Bilirubin, Indirect LAB CHEMISTRY METHOD 05/08/2024 12:00 PM [facility] Comment:Unable to calculate Indirect Bilirubin. ALT (SGPT) 22 10 - 60 unit/L LAB CHEMISTRY METHOD 05/08/2024 12:00 PM [facility] AST (SGOT) 23 10 - 42 unit/L LAB CHEMISTRY METHOD 05/08/2024 12:00 PM [facility] Comment:Hemolysis present Alkaline Phosphatase 98 42 - 121 unit/L LAB CHEMISTRY METHOD 05/08/2024 12:00 PM [facility] Blood Venous blood specimen / Unknown Venipuncture / Unknown 05/08/2024 5:45 AM EST 05/08/2024 12:00 PM EST us Glen Pugh MD LAB BLOOD ORDERABLES Final Result [facility] [address] [place] [address], * (ABNORMAL) Basic metabolic panel (05/08/2024 5:45 AM EST) Sodium 140 133 - 145 mmol/L LAB CHEMISTRY METHOD 05/08/2024 12:00 PM [facility] Potassium 5.6(H) 3.5 - 5.5 mmol/L LAB CHEMISTRY METHOD 05/08/2024 12:00 PM [facility] Comment:Hemolysis present Chloride 110 96 - 110 mmol/L LAB CHEMISTRY METHOD 05/08/2024 12:00 PM [facility] CO2 28 21 - 32 mmol/L LAB CHEMISTRY METHOD 05/08/2024 12:00 PM [facility] Anion Gap 2(L) 3 - 11 LAB CHEMISTRY METHOD 05/08/2024 12:00 PM [facility] Glucose 67(L) 70 - 100 mg/dL LAB CHEMISTRY METHOD 05/08/2024 12:00 PM [facility] BUN 25 5 - 25 mg/dL LAB CHEMISTRY METHOD 05/08/2024 12:00 PM [facility] Creatinine 0.92 0.50 - 1.10 mg/dL LAB CHEMISTRY METHOD 05/08/2024 12:00 PM [facility] eGFR 68 >=60 mL/min/1. 73m2 LAB CHEMISTRY METHOD 05/08/2024 12:00 PM [facility] Comment:Calculation based on the??Chronic Kidney Disease Epidemiology Collaboration (CKD-EPI) equation refit??without adjustment for race. BUN/Creatinine Ratio 27.2 LAB CHEMISTRY METHOD 05/08/2024 12:00 PM [facility] Calcium 8.5 8.5 - 10.5 mg/dL LAB CHEMISTRY METHOD 05/08/2024 12:00 PM [facility] Blood Venous blood specimen / Unknown Venipuncture / Unknown 05/08/2024 5:45 AM EST 05/08/2024 12:00 PM EST Glen Pugh MD LAB BLOOD ORDERABLES Final Result [facility] [address] [place] [address], * (ABNORMAL) Complete blood count (05/08/2024 5:45 AM EST) WBC 5.0 4.8 - 10.8 K/mcL LAB HEMETOLOGY METHOD 05/08/2024 1:27 PM [facility] RBC 3.50(L) 3.80 - 4.80 M/mcL LAB HEMETOLOGY METHOD 05/08/2024 1:27 PM [facility] Hemoglobin 11.7 11.5 - 16.0 g/dL LAB HEMETOLOGY METHOD 05/08/2024 1:27 PM [facility] Hematocrit 36.8 35.0 - 47.0 % LAB HEMETOLOGY METHOD 05/08/2024 1:27 PM [facility] MCV 105.4(H) 79.0 - 98.0 FL LAB HEMETOLOGY METHOD 05/08/2024 1:27 PM [facility] MCH 33.5(H) 27.0 - 32.0 pcg LAB HEMETOLOGY METHOD 05/08/2024 1:27 PM [facility] MCHC 31.8(L) 32.0 - 37.0 g/dL LAB HEMETOLOGY METHOD 05/08/2024 1:27 PM [facility] RDW 13.5 11.0 - 15.0 % LAB HEMETOLOGY METHOD 05/08/2024 1:27 PM [facility] Platelets 234 130 - 400 K/mcL LAB HEMETOLOGY METHOD 05/08/2024 1:27 PM [facility] MPV 10.4 7.0 - 11.0 FL LAB HEMETOLOGY METHOD 05/08/2024 1:27 PM [facility] NRBC 0.0 <1.0 % LAB HEMETOLOGY METHOD 05/08/2024 1:27 PM [facility] NRBC Absolute 0.00 <0.10 K/mcL LAB HEMETOLOGY METHOD 05/08/2024 1:27 PM [facility] Blood Venous blood specimen / Unknown Venipuncture / Unknown 05/08/2024 5:45 AM EST 05/08/2024 12:00 PM EST us Glen Pugh MD LAB BLOOD ORDERABLES Final Result [facility] [address] [place] [address], documented in this encounter Visit Diagnoses Diagnosis Essential (primary) hypertension Unspecified essential hypertension Type 2 diabetes mellitus without complications Other jail (current) 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 Unspecified convulsions (CMS/HCC) Alcohol use, 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 Other pulmonary embolism without acute cor pulmonale documented in this encounter Additional Health Concerns Infection Onset Date Last Indicated Resolved Time RSV 04/23/2024 04/23/2024 05/17/2024 7:04 PM EST documented as of this encounter Care Teams Pharmacy Technician Trainee Relationship Specialty Start Date End Date Glen Pugh MD [address] [place] [id number] PCP - General 10/14/23 documented as of this encounter
== END ==
LOC: HO.CARD 09:49
PROVIDERS: PCP Internal Medicine; Visit Provider Nurse Practitioner Family
DX: I35.0 Nonrheumatic aortic (valve) stenosis (principal)
CPT/HCPCS: 93306

== ENCOUNTER → 2024-06-13 09:57 | Outpatient (BNV) | payer MEDICARE, SELFPAY | PROVIDERS: PCP Internal Medicine; Visit Provider Internal Medicine Cardiovascular Disease | DX: I35.2 Nonrheumatic aortic (valve) stenosis with insufficiency (principal); I34.81 Nonrheumatic mitral (valve) annulus calcification | CPT/HCPCS: 93306 ==

== ENCOUNTER → 2024-06-21 16:06 | Outpatient (BNV) | payer MEDICARE, BC, SELFPAY | PROVIDERS: Emergency Provider Emergency Medicine; Visit Provider Student in an Organized Health Care Education/Training Program | DX: R10.9 Unspecified abdominal pain (principal); R74.8 Abnormal levels of other serum enzymes | CPT/HCPCS: 99223; 99232; 99233 ==

== ENCOUNTER 2024-06-21 16:14 | Inpatient (IN) | payer MEDICARE, MEDICAID, SELFPAY ==
--- NOTE | 2024-06-21 | ECG_ITS ---
Test Reason : weakness Blood Pressure : */* mmHG Vent. Rate : 86 BPM Atrial Rate : 86 BPM P-R Int : 166 ms QRS Dur : 88 ms QT Int : 374 ms P-R-T Axes : 44 -17 72 degrees QTcB Int : 447 ms Normal sinus rhythm Moderate voltage criteria for LVH, may be normal variant ( R in aVL , [place] product ) Inferior infarct , age undetermined Possible Anterior infarct , age undetermined Abnormal ECG No previous ECGs available Referred By: Generic ED Physician Electronically Signed By:
--- NOTE | ~2024-06-21 | US_ITS ---
CLINICAL HISTORY: epigastric pain Limited abdominal ultrasound Comparison: None Findings: The liver is normal in size, measuring 14.4 cm in length. Normal echogenicity without focal lesions. Normal hepatopetal flow is seen within the portal vein. The common bile duct is dilated, measuring 0.8 cm. Distended gallbladder, measuring 5.2 cm in transverse dimension. No cholelithiasis, however there is sludge. No wall thickening or pericholecystic fluid. Negative sonographic Irby sign. The right kidney is normal in echogenicity. Unremarkable limited evaluation of the pancreas. Impression: Dilation of the common bile duct. Correlate with laboratory values and evaluate further with MRCP. Gallbladder distention with sludge. No acute cholecystitis. This document has been electronically signed by: Joanne Bennett MD on 06/21/2024 19:33:12
--- NOTE | ~2024-06-21 | FL_ITS ---
EXAMINATION: FL GUIDANCE ONLY HISTORY: ERCP COMPARISON: Correlation is made with an MRCP dated 06/22/2024. TECHNIQUE: Fluoroscopy time: 3.2 minutes. Cumulative Dose: 61.7 mGy. DAP: 16.8 mGym2 Images: 1. FINDINGS: The scope is seen in place. There is no opacification of the common bile duct. FL/FL guidance in OR IMPRESSION: Fluoroscopy during procedure. Please see procedure report for additional information. Electronically signed by: Tito Bernal MD 06/25/2024 07:14 AM EDT
--- NOTE | ~2024-06-21 | MR_ITS ---
CLINICAL HISTORY: abd pain, dilated cbd MR abdomen without intravenous contrast Comparison: Ultrasound of the abdomen from 06/22/2023 Findings: Interim worsening biliary ductal dilatation with upper portion of the CBD now measuring 1.3 cm (previously 0.9 cm remeasured on prior). Additional mild-moderate diffuse intrahepatic biliary duct dilatation is also new/worse. Abrupt cutoff concerning for choledocholithiasis (image 24 of series 11 and imaged 11 of series 16), at mid to lower CBD. Lower CBD is nondilated approaching ampulla. No dilatation of the main pancreatic duct 2 support or defined pancreatic head mass. Pancreatic duct is at the upper limits of normal in the tail of the pancreas with variant branching pattern. Stenosis, stricture, and extrinsic mass-effect not excluded in this noncontrast study of the mid CBD. Gallbladder is distended with layering sludge by MR. Mild adjacent fluid is nonspecific given free fluid in the abdomen of the time of the imaging. Multiple cystic lesions are noted in the imaged kidneys. No hydronephrosis. Kidneys not further characterize without contrast. Bilateral adrenal hyperplasia suggested, accounting for motion artifacts. The spleen is nonenlarged. No small bowel obstruction in the [id number]. Mild atelectasis noted. Degenerative changes include imaged spine IMPRESSION: 1. Worsening CBD dilatation with obstruction of the mid CBD. Choledocholithiasis is favored by MRCP. ERCP may be confirmatory and/or therapeutic. 2. Extrinsic mass-effect of the mid CBD is considered less likely in this noncontrast study and not excluded. Stricture also considered. 3. Distention of the gallbladder with known sludge. Please correlate for cholecystitis given mild adjacent fluid. This document has been electronically signed by: Zackery Retana MD on 06/22/2024 20:47:10
--- NOTE | ~2024-06-21 | IR_ITS ---
EXAMINATION: IR biliary drainage catheter placement. CLINICAL INDICATION: Common hepatic duct dilation secondary to obstruction. COMPARISON: MRCP 06/24/2024. TECHNIQUE: Following explaining percutaneous transhepatic cholangiogram and likely placement of ductal catheter obstruction procedure, benefits and risk was explained and written consent was obtained from the patient. Patient was placed supine on angiography table and preliminary ultrasound imaging was performed. The right hepatic ducts are not completely distended. The left hepatic duct is barely visible. On MRCP the common hepatic duct appears dilated. Based on ultrasound the right lateral upper abdomen was cleaned and draped in usual sterile manner. 1% lidocaine was injected along the marked site along the lateral abdomen. A in Chiba needle was advanced from the lateral upper abdominal wall into the right hepatic lobe several times directed towards the hilum. As the needle was withdrawn diluted contrast was injected under fluoroscopy. The common hepatic duct could not be opacified after several attempts. The exam was terminated. Patient tolerated procedure extremely well. Simple bandage applied post procedure. Conscious sedation was administered during the exam. FINDINGS/ IR/IR Biliary Drainage Placement IMPRESSION: Unsuccessful percutaneous transhepatic cholangiogram or catheter placement. The ducts are not adequately distended either by ultrasound or further fluoroscopy hepatic injection. Fluoroscopy time: 10.8. Dose: 184.10 mGy/cm. Electronically signed by: Silverio Garza MD 06/28/2024 09:12 AM EDT
--- NOTE | ~2024-06-21 | MR_ITS ---
CLINICAL HISTORY: pancreatic protocol- suspect mass [ERCP failed] MR abdomen with and without gadolinium. MRCP images were also obtained. Comparison: MR/ME - MR MRCP - 06/22/24 19:32 EDT Findings: Trace bilateral pleural effusions and left greater than right lower lobe subsegmental atelectasis. No loss of hepatic parenchymal signal on the out of phase images to suggest steatosis. No hepatic masses. No definite adrenal gland nodules. Small bilateral renal cysts. No urinary obstruction. Unremarkable spleen. No definite pancreatic mass. Ascites. Calcific atherosclerosis. Mild degenerative change of the spine. Posterior annular fissure at L5-S1. On the MRCP images, intrahepatic biliary ductal dilation is reidentified. The gallbladder is distended. The common bile duct measures up to 12 mm in diameter. A focal stricture of the common bile duct approximately 4 cm proximal to the ampulla appears complete and extends over a length of 7 mm. The common bile duct is normal in diameter distal to the stricture. No definite choledocholithiasis. The main pancreatic duct measures less than 3 mm although a segment of the main pancreatic duct is not well visualized within the pancreatic head. IMPRESSION: 1. Complete or near-complete narrowing/stricture of the common bile duct approximately 4 cm proximal to the ampulla without definite choledocholithiasis. Recommend further evaluation with repeat ERCP, and endoscopic ultrasound if there is a continued concern for pancreatic mass. This results in intrahepatic and extrahepatic biliary ductal dilation and abnormal distention of the gallbladder. 2. Trace bilateral pleural effusions and left greater than right lower lobe subsegmental atelectasis. 3. Ascites. 4. Chronic and incidental findings as above. This document has been electronically signed by: Roly Salvador DO on 06/24/2024 11:35:24
[2024-06-21 16:34] VITALS: BP 176/90; BP 186/92; PULSE 90; PULSE 91; RESP 15; TEMP 36.6; O2SAT 96; O2SAT 97; BMI 29.9
--- NOTE | 2024-06-21 16:44 | ED_ITS ---
HPI - Nausea/Vomiting/Diarrhea General Chief complaint: Nausea/Vomiting/Diarrhea Stated complaint: heartburn, new incontinence, nausea Time Seen by Provider: 06/21/24 16:31 Source: patient and EMS Mode of arrival: EMS Limitations: no limitations History of Present Illness ED Provider: NOEMÍ ALMEIDA PA-C HPI Narrative: 68 year old female with pmhx signficant for Related Data Allergies Allergy/AdvReac Type Severity Reaction Status Date / Time Macrolide Antibiotics Allergy Unknown Verified 06/21/24 16:36 tetracycline Allergy Unknown Verified 06/21/24 16:36 Physical Exam 2 Vital Signs: Vital Signs: Last Vital Signs Temp 97.9 F 06/21/24 16:34 Pulse 91 06/21/24 16:34 Resp 15 06/21/24 16:34 BP 186/92 H 06/21/24 16:34 Pulse Ox 96 06/21/24 16:34 O2 Del Method Room Air 06/21/24 16:34 BMI result Body Mass Index 29.9 Medical Decision Making Differential Diagnosis Differential Diagnoses: The differential diagnosis associated with the presentation includes as above. Lab Data 06/21/24 16:47 06/21/24 16:47 Labs: Lab Results 06/21/24 Range/Units 16:47 WBC 7.1 (4.8-10.8) X10*3/uL RBC 3.86 L (4.20-5.50) X10*6/uL Hgb 13.1 (12.0-16.0) g/dl Hct 39.1 (37.0-47.0) % MCV 101.3 H (80.0-98.0) fL MCH 33.9 H (27.0-33.0) pg MCHC 33.5 (31.0-35.0) g/dl RDW 13.8 (11.0-16.0) % Plt Count 248 (160-400) X10*3/uL MPV 10.1 (9.4-12.3) fL Immature Gran % (Auto) 0.4 (0.0-0.4) % Neut % (Auto) 75.6 H (45-73) % Lymph % (Auto) 13.5 L (20-40) % Treasure % (Auto) 8.7 (2-11) % Eos % (Auto) 1.4 (0-4) % Baso % (Auto) 0.4 (0-2) % Lymph # (Auto) 1.0 L (1.2-4.9) X10*3/uL Treasure # (Auto) 0.6 (0.1-1.2) X10*3/uL Eos # (Auto) 0.1 (0.0-0.4) X10*3/uL Baso # (Auto) 0.0 (0.0-0.2) X10*3/uL Abs Immat Gran (auto) 0.03 (0.00-0.03) X10*3/uL Absolute Neuts (auto) 5.4 (2.0-8.3) x10*3/uL Absolute Nucleated RBC 0.000 (0.0-0.012) X10*3/uL Nucleated RBC % (auto) 0.0 (0.0-0.2) /100WBC Sodium 138 (135-145) mmol/L Potassium 4.5 (3.3-5.1) mmol/L Chloride 108 (96-108) mmol/L Carbon Dioxide 23 (22-29) mmol/L Anion Gap 12 (12-20) BUN 19 H (9-16) mg/dL Creatinine 0.73 (0.5-1.4) mg/dL Estim Creat Clear Calc 74.0 Estimated GFR > 60 Random Glucose 144 H (60-115) mg/dL Calcium 8.8 (8.4-10.2) mg/dL Magnesium 2.0 (1.6-2.6) mg/dL Total Bilirubin 1.6 H (0.0-1.0) mg/dL AST 62 H (5-31) U/L ALT 94 H (0-31) U/L Alkaline Phosphatase 348 H (39-117) U/L Total Protein 7.0 (6.5-8.0) g/dL Albumin 3.7 (3.5-5.0) g/dL Lipase 47 (8-78) U/L Critical Care Time Critical Care Time Critical Care Time: Yes
[2024-06-21 16:51] LABS: MANUAL DIFF FLAG NO
[2024-06-21 17:05] LABS: Basophils Percent Auto 0.4 % (0-2); Eosinophils Absolute Auto 0.1 X10*3/uL (0.0-0.4); Eosinophils Percent Auto 1.4 % (0-4); Hematocrit 39.1 % (37.0-47.0); Hemoglobin 13.1 g/dl (12.0-16.0); Imm Gran Abs Auto 0.03 X10*3/uL (0.00-0.03); Imm Gran Pct Auto 0.4 % (0.0-0.4); Lymphocytes Percent Auto 13.5 % (20-40); Mean Corpuscular HGB Conc 33.5 g/dl (31.0-35.0); Mean Corpuscular Hemoglobin 33.9 pg (27.0-33.0); Mean Corpuscular Volume 101.3 fL (80.0-98.0); Mean Platelet Volume 10.1 fL (9.4-12.3); Monocytes Absolute Auto 0.6 X10*3/uL (0.1-1.2); Monocytes Percent Auto 8.7 % (2-11); Neutrophils Absolute Auto 5.4 x10*3/uL (2.0-8.3); Neutrophils Percent Auto 75.6 % (45-73); Platelet Count 248 X10*3/uL (160-400); Red Blood Count 3.86 X10*6/uL (4.20-5.50); Red Cell Distribution Width 13.8 % (11.0-16.0); White Blood Count 7.1 X10*3/uL (4.8-10.8)
[2024-06-21 17:10] LABS: Alanine Aminotransferase 94 U/L (0-31); Albumin Level 3.7 g/dL (3.5-5.0); Alkaline Phosphatase 348 U/L (39-117); Anion Gap 12 (12-20); Aspartate Amino Transferase 62 U/L (5-31); Bilirubin Total 1.6 mg/dL (0.0-1.0); Blood Urea Nitrogen 19 mg/dL (9-16); Calcium 8.8 mg/dL (8.4-10.2); Carbon Dioxide 23 mmol/L (22-29); Chloride 108 mmol/L (96-108); Estimated Glomerular Filt Rate > 60; Glucose Random 144 mg/dL (60-115); Lipase 47 U/L (8-78); Potassium 4.5 mmol/L (3.3-5.1); Sodium 138 mmol/L (135-145)
[2024-06-21 17:14] LABS: Troponin-I High Sensitivity 14.8 ng/L (<3.5-17.0)
[2024-06-21 18:00] VITALS: BP 176/95; PULSE 85; RESP 16; TEMP 36.7; O2SAT 95
[2024-06-21 19:07] LABS: Influenza A PCR NEGATIVE (Negative); Influenza B PCR NEGATIVE (Negative); Resp Syncy Virus RNA Qual PCR NEGATIVE (Negative); SARS COV2 PCR INHOUSE NEGATIVE (Negative)
--- NOTE | 2024-06-21 19:49 | ED.GENADULT ---
HPI - General Adult General Chief complaint: Nausea/Vomiting/Diarrhea Stated complaint: heartburn, new incontinence, nausea Time Seen by Provider: 06/21/24 16:31 Source: patient, RN notes reviewed and old records reviewed Mode of arrival: EMS Limitations: no limitations History of Present Illness ED Provider: Josh HPI narrative: 68-year-old female with past medical history significant for pulmonary embolism on Eliquis, hypertension, chronic kidney disease, vertigo last, Parkinson's disease presents for evaluation of upper abdominal pain and chest pain. Patient reports her symptoms started about a week ago she has had worsening or burn. Today she had severe burning upper abdominal pain radiating to her chest and throat after eating the flap dog a few hours ago. She had some intermittent diarrhea. Denies any fevers or chills She still complains of burning pain but states her abdominal pain and chest pain has resolved, her pain is mostly in her throat currently. Denies any vomiting. She had an echocardiogram on 06/13/2024 that was reportedly normal Related Data Home Medications ?Medication ?Instructions ?Recorded ?Confirmed divalproex 250 mg tablet,delayed 3 tab PO BID 01/26/21 05/25/24 release fluoxetine 40 mg capsule 1 cap PO DAILY 01/26/21 05/25/24 folic acid 1 mg tablet 1 tab PO DAILY 01/26/21 05/25/24 pravastatin 20 mg tablet 1 tab PO BEDTIME 01/26/21 05/25/24 nitroglycerin 0.4 mg sublingual 0.4 mg sublingual Q5M PRN Chest 06/03/22 05/25/24 tablet Pain phenytoin sodium extended 100 mg 2 tab PO BID 06/03/22 05/25/24 capsule amantadine HCl 100 mg tablet 100 mg PO DAILY 12/09/22 05/25/24 gabapentin 100 mg capsule 100 mg PO BID 07/28/23 05/25/24 sennosides 8.6 mg tablet (senna) 17.2 mg PO BEDTIME 07/28/23 05/25/24 bisacodyl 10 mg rectal suppository 10 mg DE DAILY PRN Constipation 01/11/24 05/25/24 cholecalciferol (vitamin D3) 50 50 mcg PO DAILY 01/11/24 05/25/24 mcg (2,000 unit) capsule cyanocobalamin (vitamin B-12) 500 500 mcg PO DAILY 01/11/24 05/25/24 mcg tablet docusate sodium 100 mg capsule 100 mg PO BID 01/11/24 05/25/24 (Colace) lisinopril 10 mg tablet 10 mg PO DAILY 01/11/24 05/25/24 loperamide 2 mg capsule 2 mg PO Q6H PRN Loose Stool 01/11/24 05/25/24 (Anti-Diarrheal (loperamide)) magnesium hydroxide 400 mg/5 mL 30 ml PO DAILY PRN Constipation 01/11/24 05/25/24 oral suspension (Milk of Magnesia) acetaminophen 500 mg tablet 1,000 mg PO Q6H PRN Pain (Scale 02/03/24 05/25/24 Score 1-3) aluminum-mag hydroxide-simethicone 30 ml PO DAILY PRN GI Distress 02/03/24 05/25/24 200 mg-200 mg-20 mg/5 mL oral susp (Mintox) mirtazapine 15 mg tablet 15 mg PO BEDTIME 02/03/24 05/25/24 fluoxetine 10 mg capsule 10 mg PO DAILY 05/25/24 05/25/24 Previous Rx's ?Medication ?Instructions ?Recorded polyethylene glycol 3350 17 17 g PO DAILY 30 days #510 grams 04/29/23 gram/dose oral powder (Miralax) apixaban 5 mg tablet 5 mg PO BID #180 tabs 02/06/24 guaifenesin 600 mg tablet, 600 mg PO BID #20 tabs 02/06/24 extended release 12 hr (Mucinex) Allergies Allergy/AdvReac Type Severity Reaction Status Date / Time adhesive tape Allergy Unknown hives Unverified 05/29/24 08:33 amlodipine [From Norvasc] Allergy Unknown Swelling Unverified 05/29/24 08:33 od hands/feet azithromycin [AZITHROMYCIN] Allergy Unknown HIVES Verified 01/29/24 01:00 bacitracin [From Cortisporin] Allergy Unknown Eye Unverified 05/29/24 08:33 irritation brompheniramine Allergy Unknown Body Rash Unverified 05/29/24 08:33 [From Dimetapp Cold-Allergy (PE)] calcium [From DHEA] Allergy Unknown Unknown Unverified 05/29/24 08:33 calcium carbonate [From DHEA] Allergy Unknown Unknown Unverified 05/29/24 08:33 cefaclor Allergy Unknown Perineum Unverified 05/29/24 08:33 rash chlorpheniramine Allergy Unknown Body Rash Unverified 05/29/24 08:33 [From Fedahist] clindamycin Allergy Unknown GI Unverified 05/29/24 08:33 upset/pain/vomiting devil's claw Allergy Unknown unsure Unverified 05/29/24 08:33 reaction dexbrompheniramine Allergy Unknown Body Rash Unverified 05/29/24 08:33 [From Drixoral] diphenhydramine Allergy Unknown Body Rash Unverified 05/29/24 08:33 [From Benadryl] doxazosin Allergy Unknown Extreme Unverified 05/29/24 08:33 anxiety erythromycin base Allergy Unknown Perineum Unverified 05/29/24 08:33 rash garlic Allergy Unknown Unknown Unverified 05/29/24 08:33 gentamicin [From Garamycin] Allergy Unknown [eye Unverified 05/29/24 08:33 drops] Eye swelling ginkgo biloba Allergy Unknown piercing Unverified 05/29/24 08:33 pain in head guaifenesin [From Fedahist] Allergy Unknown Body Rash Unverified 05/29/24 08:33 hydralazine Allergy Unknown Swelling Unverified 05/29/24 08:33 of feet/legs hydrochlorothiazide Allergy Unknown Itchy palms Unverified 05/29/24 08:33 hydrocortisone Allergy Unknown Eye Unverified 05/29/24 08:33 [From Cortisporin] irritation Macrolide Antibiotics Allergy Unknown Unknown Verified 02/03/24 17:28 meclizine Allergy Unknown very dry Unverified 05/29/24 08:33 mouth methylsulfonylmethane Allergy Unknown Itchy palms Unverified 05/29/24 08:33 [From MSM] nebivolol [From Bystolic] Allergy Unknown Swelling Unverified 05/29/24 08:33 of feet/ legs neomycin [From Cortisporin] Allergy Unknown Eye Unverified 05/29/24 08:33 irritation nifedipine [From Procardia] Allergy Unknown Swelling Unverified 05/29/24 08:33 of feet and legs nut - unspecified Allergy Unknown mouth sores Unverified 05/29/24 08:33 Peanut Butter Allergy Unknown mouth sores Unverified 05/29/24 08:33 penicillin V Allergy Unknown Body rash Unverified 05/29/24 08:33 Penicillins Allergy Unknown body rash Unverified 05/29/24 08:33 phenylephrine Allergy Unknown Body Rash Unverified 05/29/24 08:33 [From Dimetapp Cold-Allergy (PE)] polymyxin B Allergy Unknown Eye Unverified 05/29/24 08:33 [From Cortisporin] irritation prasterone (DHEA) [From DHEA] Allergy Unknown Unknown Unverified 05/29/24 08:33 propoxyphene [From Darvon] Allergy Unknown Unknown Unverified 05/29/24 08:33 pseudoephedrine Allergy Unknown Body Rash Unverified 05/29/24 08:33 [From Drixoral] shellfish derived Allergy Unknown itchy body Unverified 05/29/24 08:33 Sulfa (Sulfonamide Allergy Unknown Itchy palms Unverified 05/29/24 08:33 Antibiotics) sulfamethoxazole Allergy Unknown itchy palms Unverified 05/29/24 08:33 [From Bactrim] trimethoprim [From Bactrim] Allergy Unknown itchy palms Unverified 05/29/24 08:33 prednisone Allergy Flushing Unverified 05/29/24 08:33 tetracycline Allergy Unknown Unverified 06/21/24 16:36 Carditone Allergy Unknown Swelling Uncoded 05/29/24 08:33 of feet/legs; itchy body Review of Systems Constitutional: Constitutional: Denies body ache(s), Denies chills, Denies fever(s) and Denies frequent falls Eyes: Eyes: Denies blurry vision ENT: Denies dysphagia, Denies vertigo and Denies dizziness Cardiovascular: Cardiovascular: Reports chest pain, Reports chest pain at rest and Denies dyspnea Respiratory: Respiratory: Denies cough and Denies dyspnea Gastrointestinal: Gastrointestinal: Reports abdominal pain, Denies hematochezia, Denies dysphagia, Reports diarrhea, Reports loose stools, Reports nausea and Denies vomiting Musculoskeletal: Musculoskeletal: Denies back pain Integumentary/Breasts: Skin/Breast: Denies rash Neurologic: Denies vertigo, Denies dizziness and Denies frequent falls Psychiatric: Psychiatric: Denies anxiety PMFSH Past Medical History Medical History (Updated 06/21/24 @ 20:09 by Rishabh Moreno) Fall Dyslipidemia Colonoscopy refused Osteoporosis Hypothyroid HTN (hypertension) Aortic insufficiency Osteopenia CKD (chronic kidney disease) stage 3, GFR 30-59 ml/min Mitral valve disorder Parkinson's disease without dyskinesia Seizure Parkinson's disease Hx of fracture of femur History of alcohol abuse Diabetes History of encephalopathy History of traumatic subdural hematoma Tobacco dependence Atherosclerotic cardiovascular disease Non-rheumatic aortic stenosis Preoperative cardiovascular examination Myocardial infarct History of coronary artery disease Seizure disorder Hypertension Fall Surgical History (Updated 06/21/24 @ 19:18 by Jenna Dean) History of breast biopsy History of tubal ligation History of hip surgery Family History Family History Mother No problems noted. Father No problems noted. 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 Physical Exam ED Vital Signs: Vital Signs - 24 hr 06/21/24 16:34 06/21/24 18:00 Temperature 97.9 F 98.1 F Pulse Rate 91 85 Respiratory Rate 15 16 Blood Pressure 186/92 H 176/95 H Pulse Oximetry 96 95 Oxygen Delivery Method Room Air Room Air BMI result Body Mass Index 29.9 Const General: healthy appearing, comfortable, no acute distress, alert and awake Nutritional Appearance: well nourished Orientation/consciousness: patient oriented x3 HENMT Head: Yes normocephalic and Yes atraumatic Eyes Eyelids: Yes eyelids normal Conjunctivae: conjunctivae normal Sclerae: sclerae normal Corneas: corneas normal Pupils: Equal, round and reactive pupils present EOM: EOMs intact bilaterally Neck Neck: Yes full ROM Resp Effort & Inspection: normal respiratory effort, able to speak in complete sentences and not labored Cardio Rate: regular rate Rhythm: regular rhythm GI Inspection: No distended Palpation (GI): Soft to palpation, not firm, nontender, no guarding and not rigid Skin General skin exam: elasticity normal Neuro General: patient oriented x3 Cranial nerves: Yes Equal, round and reactive pupils present and Yes Bilaterally intact EOM present Cognition (Neuro): normal cognition Extrem Other: Moving all extremities well without any obvious deformities Medications Administered Discontinued Medications Generic Name Dose Route Start Last Admin Trade Name Mykeq PRN Reason Stop Dose Admin Al Hydroxide/Mg Hydroxide 30 ml 06/21/24 19:29 06/21/24 19:53 Magnesium Hydrox/Alum Hydrox 30 Ml Oral.Susp PO 06/21/24 19:30 30 ml ONCE ONE Administration Lidocaine HCl 15 ml 06/21/24 19:29 06/21/24 19:53 Lidocaine Hcl Viscous 2 % 15 Ml Solution MUCOUS MEM 06/21/24 19:30 15 ml ONCE ONE Administration Ondansetron HCl 4 mg 06/21/24 19:06/21/24 19:53 Ondansetron Hcl 4 Mg/2 Ml Vial IVPUSH 06/21/24 19:30 4 mg ONCE ONE Administration Medical Decision Making Medical Decision Making [facility] Narrative: 68-year-old female past medical history as above presents for evaluation of burning upper abdominal and chest pain. Her EKG is you notice the daughter to the nonischemic. Her troponin is within normal limits, her pain started several days ago and worsened over 3 hours ago. She rules out for ACS. She is currently nontender on exam in the right upper quadrant, negative Irby's sign. Ultrasound of the right upper quadrant shows a distended gallbladder and a distended CBD up to 0.8cm. No pericholecystic fluid or evidence of acute cholecystitis. There is no leukocytosis, the patient's LFTs are slightly elevated including total bilirubin to 1.6. I discussed with GI, Dr. Stevenson who recommends admission for MRCP. We will hold antibiotics as there was no evidence of infection currently. Differential Diagnosis Differential Diagnoses: The differential diagnosis associated with the presentation includes NCS Chest pain GERD Choledocholithiasis Cholecystitis Admission/Observation Consideration of admission/observation: Escalation of care including admission/observation considered Lab Data [facility] Lab Attestation statement: I reviewed the patient's lab results. No leukocytosis or anemia. Normal platelet count. No significant electrolyte abnormalities. Patient has a history of chronic kidney disease, BUN is slightly elevated to 19 consistent with this. Creatinine within normal limits. Random glucose of 144. Elevated total bilirubin to 1.6, slightly elevated AST, ALT and alk phos within could be related to obstructive biliary stone 06/21/24 16:47 06/21/24 16:47 Labs: Lab Results 06/21/24 06/21/24 Range/Units 16:47 18:23 WBC 7.1 (4.8-10.8) X10*3/uL RBC 3.86 L (4.20-5.50) X10*6/uL Hgb 13.1 (12.0-16.0) g/dl Hct 39.1 (37.0-47.0) % MCV 101.3 H (80.0-98.0) fL MCH 33.9 H (27.0-33.0) pg MCHC 33.5 (31.0-35.0) g/dl RDW 13.8 (11.0-16.0) % Plt Count 248 (160-400) X10*3/uL MPV 10.1 (9.4-12.3) fL Immature Gran % (Auto) 0.4 (0.0-0.4) % Neut % (Auto) 75.6 H (45-73) % Lymph % (Auto) 13.5 L (20-40) % [place] % (Auto) 8.7 (2-11) % Eos % (Auto) 1.4 (0-4) % Baso % (Auto) 0.4 (0-2) % Lymph # (Auto) 1.0 L (1.2-4.9) X10*3/uL [place] # (Auto) 0.6 (0.1-1.2) X10*3/uL Eos # (Auto) 0.1 (0.0-0.4) X10*3/uL Baso # (Auto) 0.0 (0.0-0.2) X10*3/uL Abs Immat Gran (auto) 0.03 (0.00-0.03) X10*3/uL Absolute Neuts (auto) 5.4 (2.0-8.3) x10*3/uL Absolute Nucleated RBC 0.000 (0.0-0.012) X10*3/uL Nucleated RBC % (auto) 0.0 (0.0-0.2) /100WBC Sodium 138 (135-145) mmol/L Potassium 4.5 (3.3-5.1) mmol/L Chloride 108 (96-108) mmol/L Carbon Dioxide 23 (22-29) mmol/L Anion Gap 12 (12-20) BUN 19 H (9-16) mg/dL Creatinine 0.73 (0.5-1.4) mg/dL Estim Creat Clear Calc 74.0 Estimated GFR > 60 Random Glucose 144 H (60-115) mg/dL Calcium 8.8 (8.4-10.2) mg/dL Magnesium 2.0 (1.6-2.6) mg/dL Total Bilirubin 1.6 H (0.0-1.0) mg/dL AST 62 H (5-31) U/L ALT 94 H (0-31) U/L Alkaline Phosphatase 348 H (39-117) U/L Troponin I High Sens 14.8 (<3.5-17.0) ng/L Total Protein 7.0 (6.5-8.0) g/dL Albumin 3.7 (3.5-5.0) g/dL Lipase 47 (8-78) U/L Influenza Type A (PCR) NEGATIVE (Negative) Influenza Type B (PCR) NEGATIVE (Negative) RSV RNA Qual (PCR) NEGATIVE (Negative) SARS-CoV-2 RNA (RT-PCR) NEGATIVE (Negative) Independent Interpretation I performed an independent interpretation of an: EKG Interpretation: Normal sinus rhythm with a rate of [address] segment elevations or depressions. Nondiagnostic EKG Discharge Plan Discharge Clinical Impression: Abdominal pain Patient Disposition: Admitted As Inpatient Prescriptions: No Action fluoxetine 40 mg capsule 1 cap PO DAILY divalproex 250 mg tablet,delayed release (DR/EC) 3 tab PO BID folic acid 1 mg tablet 1 tab PO DAILY pravastatin 20 mg tablet 1 tab PO BEDTIME phenytoin sodium extended 100 mg capsule 2 tab PO BID nitroglycerin 0.4 mg Tablet, Sublingual 0.4 mg SUBLINGUAL Q5M PRN (Reason: Chest Pain) Rx Instructions: do not exceed 3 doses per episode mirtazapine 15 mg tablet 15 mg PO BEDTIME alum-mag hydroxide-simeth [Mintox] 200-200-20 mg/5 mL Suspension 30 ml PO DAILY PRN (Reason: GI Distress) acetaminophen 500 mg Tablet 1,000 mg PO Q6H PRN (Reason: Pain (Scale Score 1-3)) guaifenesin [Mucinex] 600 mg Tablet Extended Release 12hr 600 mg PO BID Qty: 20 0RF apixaban 5 mg tablet 5 mg PO BID Qty: 180 0RF Rx Instructions: start on 02/12 amantadine HCl 100 mg tablet 100 mg PO DAILY polyethylene glycol 3350 [Miralax] 17 gram/dose powder 17 g PO DAILY 30 Days Qty: 510 6RF gabapentin 100 mg capsule 100 mg PO BID sennosides [senna] 8.6 mg tablet 17.2 mg PO BEDTIME lisinopril 10 mg tablet 10 mg PO DAILY cholecalciferol (vitamin D3) 50 mcg (2,000 unit) capsule 50 mcg PO DAILY cyanocobalamin (vitamin B-12) 500 mcg tablet 500 mcg PO DAILY docusate sodium [Colace] 100 mg capsule 100 mg PO BID bisacodyl 10 mg suppository 10 mg DE DAILY PRN (Reason: Constipation) loperamide [Anti-Diarrheal (loperamide)] 2 mg capsule 2 mg PO Q6H PRN (Reason: Loose Stool) magnesium hydroxide [Milk of Magnesia] 400 mg/5 mL suspension 30 ml PO DAILY PRN (Reason: Constipation) fluoxetine 10 mg capsule 10 mg PO DAILY Print Language: Latvian
[2024-06-21] MEDS: Magnesium Hydrox/Alum Hydrox 30 ML ORAL.SUSP PO (19:53)
[2024-06-21] MEDS: ondansetron HCL 4 MG/2 ML VIAL IVPUSH (19:53)
[2024-06-21] MEDS: Lidocaine HCl Viscous 2 % 15 ML SOLUTION MUCOUS MEM (19:53)
--- NOTE | 2024-06-21 20:16 | P.HPHOSP_ITS ---
History of Present Illness Date of Service: 06/21/24 Chief Complaint: Nausea, upper abdominal pain This is a 68-year-old female with pertinent history of PE on Eliquis, Parkinson's disease, mood disorder, congestive heart failure with preserved ejection fraction, seizure disorder, hypertension, previous CVA who presents to the emergency department for evaluation of burning upper abdominal pain and nausea. Patient states her symptoms started 4-5 days prior to presentation. She began having burning upper abdominal/chest discomfort which radiated to her throat. Also has been having intractable nausea and poor p.o. intake. Denies vomiting. Is also having loose stools, intermittently. No melena or hematochezia. No fever, chills, palpitations, shortness of breath, changes in urinary habits. In the emergency department, CBD noted to be dilated on abdominal ultrasound. Alk-phos found to be elevated with elevated transaminases. Gastroenterology was consulted who requested admission. Review of Systems 2 Constitutional: Constitutional: Reports fatigue and Reports poor appetite Cardiovascular: Cardiovascular: Reports no additional cardiovascular complaints Respiratory: Respiratory: Reports no additional respiratory complaints Gastrointestinal: Gastrointestinal: Reports abdominal pain, Reports belching, Reports diarrhea and Reports nausea Endocrine: Endocrine: Reports fatigue PMFSH Medical History Fall Dyslipidemia Colonoscopy refused Osteoporosis Hypothyroid HTN (hypertension) Aortic insufficiency Osteopenia CKD (chronic kidney disease) stage 3, GFR 30-59 ml/min Mitral valve disorder Parkinson's disease without dyskinesia Seizure Parkinson's disease Hx of fracture of femur History of alcohol abuse Diabetes History of encephalopathy History of traumatic subdural hematoma Tobacco dependence Atherosclerotic cardiovascular disease Non-rheumatic aortic stenosis Preoperative cardiovascular examination Myocardial infarct History of coronary artery disease Seizure disorder Hypertension Fall Family History Mother No problems noted. Father No problems noted. Surgical History History of breast biopsy History of tubal ligation History of hip surgery Social History Household Members: None Housing: Assisted Living Facility 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 Meds Allergies Allergy/AdvReac Type Severity Reaction Status Date / Time adhesive tape Allergy Unknown hives Unverified 05/29/24 08:33 amlodipine [From Norvasc] Allergy Unknown Swelling Unverified 05/29/24 08:33 od hands/feet azithromycin [AZITHROMYCIN] Allergy Unknown HIVES Verified 01/29/24 01:00 bacitracin [From Cortisporin] Allergy Unknown Eye Unverified 05/29/24 08:33 irritation brompheniramine Allergy Unknown Body Rash Unverified 05/29/24 08:33 [From Dimetapp Cold-Allergy (PE)] calcium [From DHEA] Allergy Unknown Unknown Unverified 05/29/24 08:33 calcium carbonate [From DHEA] Allergy Unknown Unknown Unverified 05/29/24 08:33 cefaclor Allergy Unknown Perineum Unverified 05/29/24 08:33 rash chlorpheniramine Allergy Unknown Body Rash Unverified 05/29/24 08:33 [From Fedahist] clindamycin Allergy Unknown GI Unverified 05/29/24 08:33 upset/pain/vomiting devil's claw Allergy Unknown unsure Unverified 05/29/24 08:33 reaction dexbrompheniramine Allergy Unknown Body Rash Unverified 05/29/24 08:33 [From Drixoral] diphenhydramine Allergy Unknown Body Rash Unverified 05/29/24 08:33 [From Benadryl] doxazosin Allergy Unknown Extreme Unverified 05/29/24 08:33 anxiety erythromycin base Allergy Unknown Perineum Unverified 05/29/24 08:33 rash garlic Allergy Unknown Unknown Unverified 05/29/24 08:33 gentamicin [From Garamycin] Allergy Unknown [eye Unverified 05/29/24 08:33 drops] Eye swelling ginkgo biloba Allergy Unknown piercing Unverified 05/29/24 08:33 pain in head guaifenesin [From Fedahist] Allergy Unknown Body Rash Unverified 05/29/24 08:33 hydralazine Allergy Unknown Swelling Unverified 05/29/24 08:33 of feet/legs hydrochlorothiazide Allergy Unknown Itchy palms Unverified 05/29/24 08:33 hydrocortisone Allergy Unknown Eye Unverified 05/29/24 08:33 [From Cortisporin] irritation Macrolide Antibiotics Allergy Unknown Unknown Verified 02/03/24 17:28 meclizine Allergy Unknown very dry Unverified 05/29/24 08:33 mouth methylsulfonylmethane Allergy Unknown Itchy palms Unverified 05/29/24 08:33 [From MSM] nebivolol [From Bystolic] Allergy Unknown Swelling Unverified 05/29/24 08:33 of feet/ legs neomycin [From Cortisporin] Allergy Unknown Eye Unverified 05/29/24 08:33 irritation nifedipine [From Procardia] Allergy Unknown Swelling Unverified 05/29/24 08:33 of feet and legs nut - unspecified Allergy Unknown mouth sores Unverified 05/29/24 08:33 Peanut Butter Allergy Unknown mouth sores Unverified 05/29/24 08:33 penicillin V Allergy Unknown Body rash Unverified 05/29/24 08:33 Penicillins Allergy Unknown body rash Unverified 05/29/24 08:33 phenylephrine Allergy Unknown Body Rash Unverified 05/29/24 08:33 [From Dimetapp Cold-Allergy (PE)] polymyxin B Allergy Unknown Eye Unverified 05/29/24 08:33 [From Cortisporin] irritation prasterone (DHEA) [From DHEA] Allergy Unknown Unknown Unverified 05/29/24 08:33 propoxyphene [From Darvon] Allergy Unknown Unknown Unverified 05/29/24 08:33 pseudoephedrine Allergy Unknown Body Rash Unverified 05/29/24 08:33 [From Drixoral] shellfish derived Allergy Unknown itchy body Unverified 05/29/24 08:33 Sulfa (Sulfonamide Allergy Unknown Itchy palms Unverified 05/29/24 08:33 Antibiotics) sulfamethoxazole Allergy Unknown itchy palms Unverified 05/29/24 08:33 [From Bactrim] trimethoprim [From Bactrim] Allergy Unknown itchy palms Unverified 05/29/24 08:33 prednisone Allergy Flushing Unverified 05/29/24 08:33 tetracycline Allergy Unknown Unverified 06/21/24 16:36 Carditone Allergy Unknown Swelling Uncoded 05/29/24 08:33 of feet/legs; itchy body Home Medications ?Medication ?Instructions ?Recorded ?Confirmed ?Last Taken ?Type divalproex 250 mg tablet,delayed 3 tab PO BID 01/26/21 05/25/24 12/09/22 History release fluoxetine 40 mg capsule 1 cap PO DAILY 01/26/21 05/25/24 12/09/22 History folic acid 1 mg tablet 1 tab PO DAILY 01/26/21 05/25/24 12/09/22 History pravastatin 20 mg tablet 1 tab PO BEDTIME 01/26/21 05/25/24 12/09/22 History nitroglycerin 0.4 mg sublingual 0.4 mg sublingual Q5M PRN Chest 06/03/22 05/25/24 Unknown History tablet Pain phenytoin sodium extended 100 mg 2 tab PO BID 06/03/22 05/25/24 12/09/22 History capsule amantadine HCl 100 mg tablet 100 mg PO DAILY 12/09/22 05/25/24 12/09/22 History gabapentin 100 mg capsule 100 mg PO BID 07/28/23 05/25/24 Unknown History sennosides 8.6 mg tablet (senna) 17.2 mg PO BEDTIME 07/28/23 05/25/24 Unknown History bisacodyl 10 mg rectal suppository 10 mg AK DAILY PRN Constipation 01/11/24 05/25/24 Unknown History cholecalciferol (vitamin D3) 50 50 mcg PO DAILY 01/11/24 05/25/24 Unknown History mcg (2,000 unit) capsule cyanocobalamin (vitamin B-12) 500 500 mcg PO DAILY 01/11/24 05/25/24 Unknown History mcg tablet docusate sodium 100 mg capsule 100 mg PO BID 01/11/24 05/25/24 Unknown History (Colace) lisinopril 10 mg tablet 10 mg PO DAILY 01/11/24 05/25/24 Unknown History loperamide 2 mg capsule 2 mg PO Q6H PRN Loose Stool 01/11/24 05/25/24 Unknown History (Anti-Diarrheal (loperamide)) magnesium hydroxide 400 mg/5 mL 30 ml PO DAILY PRN Constipation 01/11/24 05/25/24 Unknown History oral suspension (Milk of Magnesia) acetaminophen 500 mg tablet 1,000 mg PO Q6H PRN Pain (Scale 02/03/24 05/25/24 Unknown History Score 1-3) aluminum-mag hydroxide-simethicone 30 ml PO DAILY PRN GI Distress 02/03/24 05/25/24 Unknown History 200 mg-200 mg-20 mg/5 mL oral susp (Mintox) mirtazapine 15 mg tablet 15 mg PO BEDTIME 02/03/24 05/25/24 Unknown History fluoxetine 10 mg capsule 10 mg PO DAILY 05/25/24 05/25/24 Unknown History Physical Exam 2 Vital Signs and Narrative: Vital Signs: Last Vital Signs Temp 98.1 F 06/21/24 18:00 Pulse 85 06/21/24 18:00 Resp 16 06/21/24 18:00 BP 176/95 H 06/21/24 18:00 Pulse Ox 95 06/21/24 18:00 O2 Del Method Room Air 06/21/24 18:00 BMI result Body Mass Index 29.9 Middle-aged female lying in bed in no distress Neck supple, no JVD Regular rate and rhythm, S1-S2 heard Regular breath sounds bilaterally, no wheezing or crackles appreciated Abdomen soft nontender, no guarding, no rigidity Patient is awake, alert and oriented to self, place, time and person ; no focal motor deficit Psych: Normal mood No pedal edema Results Labs 06/21/24 16:47 06/21/24 16:47 Labs: Laboratory Results - last 24 hr 06/21/24 06/21/24 16:47 18:23 MCV 101.3 H MCH 33.9 H MCHC 33.5 RDW 13.8 Plt Count 248 MPV 10.1 Immature Gran % (Auto) 0.4 Neut % (Auto) 75.6 H Lymph % (Auto) 13.5 L [place] % (Auto) 8.7 Eos % (Auto) 1.4 Baso % (Auto) 0.4 Lymph # (Auto) 1.0 L [place] # (Auto) 0.6 Eos # (Auto) 0.1 Baso # (Auto) 0.0 Abs Immat Gran (auto) 0.03 Absolute Neuts (auto) 5.4 Absolute Nucleated RBC 0.000 Nucleated RBC % (auto) 0.0 Anion Gap 12 Estim Creat Clear Calc 74.0 Estimated GFR > 60 Random Glucose 144 H Calcium 8.8 Magnesium 2.0 Total Bilirubin 1.6 H AST 62 H ALT 94 H Alkaline Phosphatase 348 H Total Protein 7.0 Albumin 3.7 Lipase 47 Influenza Type A (PCR) NEGATIVE Influenza Type B (PCR) NEGATIVE RSV RNA Qual (PCR) NEGATIVE SARS-CoV-2 RNA (RT-PCR) NEGATIVE Assessment and Plan (1) Abdominal pain: Status: Acute (2) Elevated alkaline phosphatase level: Status: Acute Plan This is a 68-year-old female with pertinent history of PE on Eliquis, Parkinson's disease, mood disorder, congestive heart failure with preserved ejection fraction, seizure disorder, hypertension, previous CVA who presents to the emergency department for evaluation of burning upper abdominal pain and nausea. #. Upper abdominal pain with dilated CBD on imaging and elevated alk-phos: Will admit patient and obtain MRCP. Consulted Gastroenterology, appreciate assistance. No evidence of cholangitis. Clear liquid diet and advance as tolerated. GI panel pending #. Gastroesophageal reflux disease: Initiating IV Protonix #. History of PE: Hold Eliquis until Gastroenterology evaluation #. Parkinson's disease: On amantadine. Not on carbidopa/levodopa #. Congestive heart failure with preserved ejection fraction: No exacerbation during admission #. Seizure disorder: Continue divalproex and phenytoin #. Hypertension: On lisinopril #. History of CVA: Hold statin. Not on antiplatelet agent #. Mood disorder: Continue fluoxetine, mirtazapine Med rec pending DVT prophylaxis: Mechanical Full code Admit as inpatient and will require two night minimum hospital stay for management of possible choledocholithiasis in a patient with abdominal pain, dilated CBD, elevated alk-phos (as above), which is not possible in a lesser acute setting. Gastroenterology consult pending Quality Stroke Does the patient have a stroke diagnosis?: No VTE Prior VTE?: No VTE Risk Level:: Medical - moderate - high VTE Device Contraindication: N/A - Device Ordered VTE Drug Contraindication: Treatment Not Indicated
[2024-06-21] MEDS: Pantoprazole Sodium 40 MG/10 ML VIAL IVPUSH (20:30)
--- OUTSIDE RECORDS SUMMARY | 2024-06-21 20:33 | XMS_ITS | Encounter Summary ---
Author Organization [facility] [place] [address] Care Team Providers Care Corporate Aircraft Mechanic Name Role Phone Glen Pugh MD Primary Care Provider [phone] Encounter Details Date Type Department Care Team (Late st Contact Info) Description 05/08/2024 Lab Requisition [facility] - Main Lab [address] [facility] [place] [phone] Glen Pugh MD [address], [place] [id number] Essential (primary) hypertension; Type 2 diabetes mellitus without complications (CMS/HCC); Other extermination inspector (current) 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; Unspecified convulsions (CMS/HCC); Alcohol use, 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); Atherosclerotic heart disease of jena coronary artery without angina pectoris; Other pulmonary [...] 2 diabetes mellitus without complications (CMS/HCC) Other prison (current) 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 Unspecified convulsions (CMS/HCC) Alcohol use, 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) Atherosclerotic heart disease of jena coronary artery without angina pectoris Other pulmonary embolism without acute cor pulmonale (CMS/HCC) PHENYTOIN LEVEL, TOTAL Routine 05/08/2024 5:45 AM EST Essential (primary) hypertension Type 2 diabetes mellitus without complications (CMS/HCC) Other prison (current) 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 Unspecified convulsions (CMS/HCC) Alcohol use, 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) Atherosclerotic heart disease of jena coronary artery without angina pectoris Other pulmonary embolism without acute cor pulmonale (CMS/HCC) VALPROIC ACID LEVEL, TOTAL Routine 05/08/2024 5:45 AM EST Essential (primary) hypertension Type 2 diabetes mellitus without complications (CMS/HCC) Other extermination inspector (current) 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 Unspecified convulsions (CMS/HCC) Alcohol use, 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) Atherosclerotic heart disease of jena coronary artery without angina pectoris Other pulmonary embolism without acute cor pulmonale (CMS/HCC) HEPATIC FUNCTION PANEL Routine 05/08/2024 5:45 AM EST Essential (primary) hypertension Type 2 diabetes mellitus without complications (CMS/HCC) Other prison (current) 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 Unspecified convulsions (CMS/HCC) Alcohol use, 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) Atherosclerotic heart disease of jena coronary artery without angina pectoris Other pulmonary embolism without acute cor pulmonale (CMS/HCC) BASIC METABOLIC PANEL Routine 05/08/2024 5:45 AM EST Essential (primary) hypertension Type 2 diabetes mellitus without complications (CMS/HCC) Other prison (current) 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 Unspecified convulsions (CMS/HCC) Alcohol use, 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) Atherosclerotic heart disease of jena coronary artery without angina pectoris Other pulmonary embolism without acute cor pulmonale (CMS/HCC) documented in this encounter Results * (ABNORMAL) Valproic acid level, total (05/08/2024 5:45 AM EST) Pathologist [facility] Valproic Acid, Total 42(L) 50 - 100 mcg/mL LAB CHEMISTRY METHOD 05/08/2024 12:00 PM EST [facility] Blood Venous blood specimen / Unknown Venipuncture / Unknown 05/08/2024 5:45 AM EST 05/08/2024 12:00 PM EST us Glen Pugh MD LAB BLOOD ORDERABLES Final Result [facility] [address] [place] [address], [place] [phone] * Phenytoin level total (05/08/2024 5:45 AM EST) [facility] Phenytoin Level 13.2 10.0 - 20.0 mcg/mL LAB CHEMISTRY METHOD 05/08/2024 12:00 PM EST [facility] Blood Venous blood specimen / Unknown Venipuncture / Unknown 05/08/2024 5:45 AM EST 05/08/2024 12:00 PM EST us Glen Pugh MD LAB BLOOD ORDERABLES Final Result [facility] [address] [place] [address], [place] [phone] * (ABNORMAL) Hepatic function panel (05/08/2024 5:45 AM EST) Pathologist [facility] Total Protein 6.1 6.0 - 8.0 g/dL LAB CHEMISTRY METHOD 05/08/2024 12:00 PM EST [facility] Albumin 3.0(L) 3.2 - 5.0 g/dL LAB CHEMISTRY METHOD 05/08/2024 12:00 PM EST [facility] Total Bilirubin 0.2 0.0 - 1.4 mg/dL LAB CHEMISTRY METHOD 05/08/2024 12:00 PM [facility] Bilirubin, Direct <0.1 0.0 - 0.3 mg/dL LAB CHEMISTRY METHOD 05/08/2024 12:00 PM [facility] Bilirubin, Indirect LAB CHEMISTRY METHOD 05/08/2024 12:00 PM [facility] Comment:Unable to calculate Indirect Bilirubin. ALT (SGPT) 22 10 - 60 unit/L LAB CHEMISTRY METHOD 05/08/2024 12:00 PM [facility] AST (SGOT) 23 10 - 42 unit/L LAB CHEMISTRY METHOD 05/08/2024 12:00 PM [facility] Comment:Hemolysis present Alkaline Phosphatase 98 42 - 121 unit/L LAB CHEMISTRY METHOD 05/08/2024 12:00 PM [facility] Blood Venous blood specimen / Unknown Venipuncture / Unknown 05/08/2024 5:45 AM EST 05/08/2024 12:00 PM EST us Glen Pugh MD LAB BLOOD ORDERABLES Final Result [facility] [address] [place] [address], * (ABNORMAL) Basic metabolic panel (05/08/2024 5:45 AM EST) Sodium 140 133 - 145 mmol/L LAB CHEMISTRY METHOD 05/08/2024 12:00 PM [facility] Potassium 5.6(H) 3.5 - 5.5 mmol/L LAB CHEMISTRY METHOD 05/08/2024 12:00 PM [facility] Comment:Hemolysis present Chloride 110 96 - 110 mmol/L LAB CHEMISTRY METHOD 05/08/2024 12:00 PM [facility] CO2 28 21 - 32 mmol/L LAB CHEMISTRY METHOD 05/08/2024 12:00 PM [facility] Anion Gap 2(L) 3 - 11 LAB CHEMISTRY METHOD 05/08/2024 12:00 PM [facility] Glucose 67(L) 70 - 100 mg/dL LAB CHEMISTRY METHOD 05/08/2024 12:00 PM [facility] BUN 25 5 - 25 mg/dL LAB CHEMISTRY METHOD 05/08/2024 12:00 PM [facility] Creatinine 0.92 0.50 - 1.10 mg/dL LAB CHEMISTRY METHOD 05/08/2024 12:00 PM [facility] eGFR 68 >=60 mL/min/1. 73m2 LAB CHEMISTRY METHOD 05/08/2024 12:00 PM [facility] Comment:Calculation based on the??Chronic Kidney Disease Epidemiology Collaboration (CKD-EPI) equation refit??without adjustment for race. BUN/Creatinine Ratio 27.2 LAB CHEMISTRY METHOD 05/08/2024 12:00 PM [facility] Calcium 8.5 8.5 - 10.5 mg/dL LAB CHEMISTRY METHOD 05/08/2024 12:00 PM [facility] Blood Venous blood specimen / Unknown Venipuncture / Unknown 05/08/2024 5:45 AM EST 05/08/2024 12:00 PM EST Glen Pugh MD LAB BLOOD ORDERABLES Final Result [facility] [address] [place] [address], * (ABNORMAL) Complete blood count (05/08/2024 5:45 AM EST) WBC 5.0 4.8 - 10.8 K/mcL LAB HEMETOLOGY METHOD 05/08/2024 1:27 PM [facility] RBC 3.50(L) 3.80 - 4.80 M/mcL LAB HEMETOLOGY METHOD 05/08/2024 1:27 PM [facility] Hemoglobin 11.7 11.5 - 16.0 g/dL LAB HEMETOLOGY METHOD 05/08/2024 1:27 PM [facility] Hematocrit 36.8 35.0 - 47.0 % LAB HEMETOLOGY METHOD 05/08/2024 1:27 PM [facility] MCV 105.4(H) 79.0 - 98.0 FL LAB HEMETOLOGY METHOD 05/08/2024 1:27 PM [facility] MCH 33.5(H) 27.0 - 32.0 pcg LAB HEMETOLOGY METHOD 05/08/2024 1:27 PM [facility] MCHC 31.8(L) 32.0 - 37.0 g/dL LAB HEMETOLOGY METHOD 05/08/2024 1:27 PM [facility] RDW 13.5 11.0 - 15.0 % LAB HEMETOLOGY METHOD 05/08/2024 1:27 PM [facility] Platelets 234 130 - 400 K/mcL LAB HEMETOLOGY METHOD 05/08/2024 1:27 PM [facility] MPV 10.4 7.0 - 11.0 FL LAB HEMETOLOGY METHOD 05/08/2024 1:27 PM [facility] NRBC 0.0 <1.0 % LAB HEMETOLOGY METHOD 05/08/2024 1:27 PM [facility] NRBC Absolute 0.00 <0.10 K/mcL LAB HEMETOLOGY METHOD 05/08/2024 1:27 PM [facility] Blood Venous blood specimen / Unknown Venipuncture / Unknown 05/08/2024 5:45 AM EST 05/08/2024 12:00 PM EST us Glen Pugh MD LAB BLOOD ORDERABLES Final Result [facility] [address] [place] [address], documented in this encounter Visit Diagnoses Diagnosis Essential (primary) hypertension Unspecified essential hypertension Type 2 diabetes mellitus without complications Other extermination inspector (current) 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 Unspecified convulsions (CMS/HCC) Alcohol use, 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) Atherosclerotic heart disease of jena coronary artery without angina pectoris Other pulmonary embolism without acute cor pulmonale documented in this encounter Additional Health Concerns Infection Onset Date Last Indicated Resolved Time RSV 04/23/2024 04/23/2024 05/17/2024 7:04 PM EST documented as of this encounter Care Teams Corporate Aircraft Mechanic Relationship Specialty Start Date End Date Glen Pugh MD [address] [place] [id number] PCP - General 10/14/23 documented as of this encounter
--- OUTSIDE RECORDS SUMMARY | 2024-06-21 20:33 | XMS_ITS | Clinical Summary ---
Author Organization [facility] Address [address] [place] [address] Phone Care Team Providers Care Cable Splicer Apprentice Name Role Phone Glen Pugh MD Primary Care Provider [phone]- [phone] Encounters Date Type Department Care Team Description 06/05/2024 Lab Requisition [facility] [address] [place] [phone] Glen Pugh MD Type 2 diabetes mellitus without complications (CMS/HCC); Essential (primary) hypertension; Atherosclerotic heart disease of [place] coronary artery without angina pectoris; Hyperlipidemia, unspecified 05/08/2024 Lab Requisition [facility] [address] [place] [address] Glen Pugh MD Essential (primary) hypertension; Type 2 diabetes mellitus without complications (CMS/HCC); Other termination clerk (current) 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; Unspecified convulsions (CMS/HCC); Alcohol use, 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); Atherosclerotic heart disease of [place] coronary artery without angina pectoris; Other pulmonary embolism without acute cor pulmonale (CMS/HCC) 04/24/2024 Lab Requisition [facility] [address] [place] [phone] Glen Pugh MD Shortness of breath; Acute cough 04/16/2024 8:57 AM EST - 04/16/2024 11:59 PM EST Hospital [facility] at [address] [address] Encounter for screening mammogram for [...] 1964 Diabetes: Annual Retina Eye Exam 1964 Zoster Vaccines (1 of 2) 2004 Pneumococcal [...] or Tdap) 07/24/2023 07/23/2013, 06/11/2005 COVID-19 Vaccine (1 - season) 2023 Influenza Vaccine (#1) 2023 4, 04/21/2012, 11/24/2010, Additional history exists Diabetes: Annual GFR (Glomerular Filtration Rate) 06/05/2025 06/05/2024, 05/08/2024 Hypertension/CHF/CAD Annual BMP Blood Test 06/05/2025 06/05/2024, 05/08/2024 Breast Cancer Screening 04/16/2026 04/16/19, 04/14/2023, 06/28/2016, Additional history exists Cholesterol Screening (Lipid Panel) 06/05/2029 06/05/2024 RSV Immunization Adult Patients (1 - 1-dose 75+ series) 2029 Osteoporosis Screening (Bone Density Screening) 03/08/2034 03/08/2024, 06/29/2021 HIB Vaccines Aged Out No longer eligi ble based on patient's age to complete this topic HPV Vaccines Aged Out No longer eligi ble based on patient's age to complete this topic Hepatitis A Vaccines Aged Out No long er eligible [...] Essential (primary) hypertension Atherosclerotic heart disease of [place] coronary artery without angina pectoris Hyperlipidemia, unspecified FOLATE Routine 06/05/2024 8:07 AM EDT Type 2 diabetes mellitus without complications (CMS/HCC) Essential (primary) hypertension Atherosclerotic heart disease of [place] coronary artery without angina pectoris Hyperlipidemia, unspecified LIPID PANEL WITH REFLEX TO DIRECT LDL Routine 06/05/2024 8:07 AM EDT Type 2 diabetes mellitus without complications (CMS/HCC) Essential (primary) hypertension Atherosclerotic heart disease of [place] coronary artery without angina pectoris Hyperlipidemia, unspecified BASIC METABOLIC PANEL Routine 06/05/2024 8:07 AM EDT Type 2 diabetes mellitus without complications (CMS/HCC) Essential (primary) hypertension Atherosclerotic heart disease of [place] coronary artery without angina pectoris Hyperlipidemia, unspecified VALPROIC ACID LEVEL, TOTAL Routine 05/08/2024 5:45 AM EST Essential (primary) hypertension Type 2 diabetes mellitus without complications (CMS/HCC) Other longterm (current) 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 Unspecified convulsions (CMS/HCC) Alcohol use, 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 Other pulmonary embolism without acute cor pulmonale (CMS/HCC) PHENYTOIN LEVEL, TOTAL Routine 05/08/2024 5:45 AM EST Essential (primary) hypertension Type 2 diabetes mellitus without complications (CMS/HCC) Other longterm (current) 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 Unspecified convulsions (CMS/HCC) Alcohol use, 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 Other pulmonary embolism without acute cor pulmonale (CMS/HCC) HEPATIC FUNCTION PANEL Routine 05/08/2024 5:45 AM EST Essential (primary) hypertension Type 2 diabetes mellitus without complications (CMS/HCC) Other longterm (current) 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 Unspecified convulsions (CMS/HCC) Alcohol use, 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 Other pulmonary embolism without acute cor pulmonale (CMS/HCC) BASIC METABOLIC PANEL Routine 05/08/2024 5:45 AM EST Essential (primary) hypertension Type 2 diabetes mellitus without complications (CMS/HCC) Other termination clerk (current) 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 Unspecified convulsions (CMS/HCC) Alcohol use, 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 Other pulmonary embolism without acute cor pulmonale (CMS/HCC) COMPLETE BLOOD COUNT Routine 05/08/2024 5:45 AM EST Essential (primary) hypertension Type 2 diabetes mellitus without complications (CMS/HCC) Other termination clerk (current) 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 Unspecified convulsions (CMS/HCC) Alcohol use, 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 Other pulmonary embolism without acute cor pulmonale (CMS/HCC) [id number], RSV, FLU A AND B QUALITATIVE RT-PCR, [...] LAB CHEMISTRY METHOD 06/05/2024 12:47 PM EDT [facility] Triglycerides 99 0 - 150 mg/dL LAB CHEMISTRY METHOD 06/05/2024 12:47 PM EDT [facility] HDL 78 >=40 mg/dL LAB CHEMISTRY METHOD 06/05/2024 12:47 PM EDT [facility] LDL Calculated 61 0 - 100 mg/dL LAB CHEMISTRY METHOD 06/05/2024 12:47 PM EDT [facility] VLDL Cholesterol Irvin 19.8 mg/dL LAB CHEMISTRY METHOD 06/05/2024 12:47 PM EDT [facility] Non HDL Chol. (LDL+VLDL) 81 <145 mg/dL LAB CHEMISTRY METHOD 06/05/2024 12:47 PM EDT [facility] Chol/HDL Ratio 2.0 0.0 - 4.4 LAB CHEMISTRY METHOD 06/05/2024 12:47 PM EDT [facility] Blood Venous blood specimen / Unknown Venipuncture / Unknown 06/05/2024 8:07 AM EDT 06/05/2024 11:02 AM EDT us Glen Pugh MD LAB BLOOD ORDERABLES Final Result Performing Organization Address City/[facility]/ZIP Co de Phone Number [facility] [address] [place] [address], [place] [phone] * (ABNORMAL) Folate (06/05/2024 8:07 AM EDT) Pathologist [facility] Folate >20.0(H) 2.8 - 17.0 ng/ml LAB CHEMISTRY METHOD 06/05/2024 12:47 PM EDT [facility] Blood Venous blood specimen / Unknown Venipuncture / Unknown 06/05/2024 8:07 AM EDT 06/05/2024 11:02 AM EDT us Glen Pugh MD LAB BLOOD ORDERABLES Final Result Performing Organization Address [facility] de Phone Number [facility] [address] [place] [address], [place] [phone] * (ABNORMAL) Vitamin B12 (06/05/2024 8:07 AM EDT) Vitamin B-12 1,075(H) 250 - 900 pcg/mL LAB CHEMISTRY METHOD 06/05/2024 12:47 PM EDT [facility] Blood Venous blood specimen / Unknown Venipuncture / Unknown 06/05/2024 8:07 AM EDT 06/05/2024 11:02 AM EDT us Glen Pugh MD LAB BLOOD ORDERABLES Final Result Performing Organization Address City/[facility]/ZIP Co de Phone Number [facility] [address] [place] [address], * (ABNORMAL) Basic metabolic panel (06/05/2024 8:07 AM EDT) Only the most recent of2 resultswithin the time period is included. Sodium 141 133 - 145 mmol/L LAB CHEMISTRY METHOD 06/05/2024 12:21 PM [facility] Potassium 5.1 3.5 - 5.5 mmol/L LAB CHEMISTRY METHOD 06/05/2024 12:21 PM [facility] Chloride 108 96 - 110 mmol/L LAB CHEMISTRY METHOD 06/05/2024 12:21 PM [facility] CO2 28 21 - 32 mmol/L LAB CHEMISTRY METHOD 06/05/2024 12:21 PM [facility] Anion Gap 5 3 - 11 LAB CHEMISTRY METHOD 06/05/2024 12:21 PM [facility] Glucose 92 70 - 100 mg/dL LAB CHEMISTRY METHOD 06/05/2024 12:21 PM [facility] BUN 29(H) 5 - 25 mg/dL LAB CHEMISTRY METHOD 06/05/2024 12:21 PM [facility] Creatinine 0.95 0.50 - 1.10 mg/dL LAB CHEMISTRY METHOD 06/05/2024 12:21 PM [facility] eGFR 65 >=60 mL/min/1. 73m2 LAB CHEMISTRY METHOD 06/05/2024 12:21 PM [facility] Comment:Calculation based on the??Chronic Kidney Disease Epidemiology Collaboration (CKD-EPI) equation refit??without adjustment for race. BUN/Creatinine Ratio 30.5 LAB CHEMISTRY METHOD 06/05/2024 12:21 PM [facility] Calcium 8.9 8.5 - 10.5 mg/dL LAB CHEMISTRY METHOD 06/05/2024 12:21 PM [facility] Blood Venous blood specimen / Unknown Venipuncture / Unknown 06/05/2024 8:07 AM EDT 06/05/2024 11:02 AM EDT Glen Pugh MD LAB BLOOD ORDERABLES Final Result [facility] [address] [place] [address], * (ABNORMAL) Complete blood count (05/08/2024 5:45 AM EST) [facility] WBC 5.0 4.8 - 10.8 K/mcL LAB HEMETOLOGY METHOD 05/08/2024 1:27 PM [facility] RBC 3.50(L) 3.80 - 4.80 M/mcL LAB HEMETOLOGY METHOD 05/08/2024 1:27 PM [facility] Hemoglobin 11.7 11.5 - 16.0 g/dL LAB HEMETOLOGY METHOD 05/08/2024 1:27 PM [facility] Hematocrit 36.8 35.0 - 47.0 % LAB HEMETOLOGY METHOD 05/08/2024 1:27 PM [facility] MCV 105.4(H) 79.0 - 98.0 FL LAB HEMETOLOGY METHOD 05/08/2024 1:27 PM [facility] MCH 33.5(H) 27.0 - 32.0 pcg LAB HEMETOLOGY METHOD 05/08/2024 1:27 PM [facility] MCHC 31.8(L) 32.0 - 37.0 g/dL LAB HEMETOLOGY METHOD 05/08/2024 1:27 PM [facility] RDW 13.5 11.0 - 15.0 % LAB HEMETOLOGY METHOD 05/08/2024 1:27 PM [facility] Platelets 234 130 - 400 K/mcL LAB HEMETOLOGY METHOD 05/08/2024 1:27 PM EST [facility] MPV 10.4 7.0 - 11.0 FL LAB HEMETOLOGY METHOD 05/08/2024 1:27 PM EST [facility] NRBC 0.0 <1.0 % LAB HEMETOLOGY METHOD 05/08/2024 1:27 PM EST [facility] NRBC Absolute 0.00 <0.10 K/mcL LAB HEMETOLOGY METHOD 05/08/2024 1:27 PM EST [facility] Blood Venous blood specimen / Unknown Venipuncture / Unknown 05/08/2024 5:45 AM EST 05/08/2024 12:00 PM EST us Glen Pugh MD LAB BLOOD ORDERABLES Final Result Performing Organization Address City/[facility]/ZIP Co de Phone Number [facility] [address] [place] [address], [place] [phone] * Phenytoin level total (05/08/2024 5:45 AM EST) Phenytoin Level 13.2 10.0 - 20.0 mcg/mL LAB CHEMISTRY METHOD 05/08/2024 12:00 PM [facility] Blood Venous blood specimen / Unknown Venipuncture / Unknown 05/08/2024 5:45 AM EST 05/08/2024 12:00 PM EST us Glen Pugh MD LAB BLOOD ORDERABLES Final Result [facility] [address] [place] [address], [place] [phone] * (ABNORMAL) Valproic acid level, total (05/08/2024 5:45 AM EST) Valproic Acid, Total 42(L) 50 - 100 mcg/mL LAB CHEMISTRY METHOD 05/08/2024 12:00 PM EST [facility] Blood Venous blood specimen / Unknown Venipuncture / Unknown 05/08/2024 5:45 AM EST 05/08/2024 12:00 PM EST Glen Pugh MD LAB BLOOD ORDERABLES Final Result [facility] [address] [place] [address], * (ABNORMAL) Hepatic function panel (05/08/2024 5:45 AM EST) Total Protein 6.1 6.0 - 8.0 g/dL LAB CHEMISTRY METHOD 05/08/2024 12:00 PM [facility] Albumin 3.0(L) 3.2 - 5.0 g/dL LAB CHEMISTRY METHOD 05/08/2024 12:00 PM [facility] Total Bilirubin 0.2 0.0 - 1.4 mg/dL LAB CHEMISTRY METHOD 05/08/2024 12:00 PM [facility] Bilirubin, Direct <0.1 0.0 - 0.3 mg/dL LAB CHEMISTRY METHOD 05/08/2024 12:00 PM [facility] Bilirubin, Indirect LAB CHEMISTRY METHOD 05/08/2024 12:00 PM [facility] Comment:Unable to calculate Indirect Bilirubin. ALT (SGPT) 22 10 - 60 unit/L LAB CHEMISTRY METHOD 05/08/2024 12:00 PM [facility] AST (SGOT) 23 10 - 42 unit/L LAB CHEMISTRY METHOD 05/08/2024 12:00 PM [facility] Comment:Hemolysis present Alkaline Phosphatase 98 42 - 121 unit/L LAB CHEMISTRY METHOD 05/08/2024 12:00 PM [facility] Blood Venous blood specimen / Unknown Venipuncture / Unknown 05/08/2024 5:45 AM EST 05/08/2024 12:00 PM EST Glen Pugh MD LAB BLOOD ORDERABLES Final Result [facility] [address] [place] [address], * (ABNORMAL) [id number], RSV, Influenza A and B qualitative RT-PCR (04/23/2024 12:00 AM EST) SARS COV-2 Not Detected Not Detected LAB MOLECULAR DIAGNOSTICS METHOD 04/24/2024 1:02 PM EST [facility] Comment: Disclaimer: The manner in which this information is used to guide patient care is the responsibility of the healthcare provider. Testing was performed using the [employer] Alinity m SARS-CoV-2 test. This test has been authorized by [facility] under an Emergency Use Authorization [...] for Healthcare Providers can be found at: https://www.fda.gov/media/681276/download Fact sheet for Patients can be found at: https://www.fda.gov/media/789463/download Influenza A PCR Not Detected Not Detected LAB MOLECULAR DIAGNOSTICS METHOD 04/24/2024 1:02 PM EST [facility] Influenza B PCR Not Detected Not Detected LAB MOLECULAR DIAGNOSTICS METHOD 04/24/2024 1:02 PM [facility] RSV PCR Detected(A ) Not Detected LAB MOLECULAR DIAGNOSTICS METHOD 04/24/2024 1:02 PM [facility] Swab Nasopharyngeal structure / Unknown Non-blood Collection / Unknown 04/23/2024 04/24/2024 9:42 AM EST us Glen Pugh MD LAB MICROBIOLOGY - GENERAL ORDERABLES Final Result [facility] LAB [address] [place] [address], * MG Mammo Digital Screening w Sulaiman bilat (04/16/2024 9:35 AM EST) Anatomical Region Laterality Modality Breast Bilateral Mammography 04/16/2024 9:33 AM EST Impressions 04/16/2024 9:37 AM EST No mammographic evidence of malignancy. A negative mammogram in the presence of a clinically suspicious palpable abnormality does not preclude the possibility of malignancy or alter the indications for biopsy. PQRI CPT II 3342F Code 35835, 95956 PQRI 225 CPT II 7025F TISSUE DENSITY: There are scattered areas of fibroglandular density. (BI-RADS category B) IMPRESSION: Benign. BI-RADS CATEGORY: 2 - BENIGN RECOMMENDATION: Screening bilateral mammogram is recommended in 1 year. Mammo Location: [facility], [address] [place] [id number] -------- FINAL REPORT -------- Dictated By: Vitaly Ho Dictated Date: 04/16/2024 09:33 ET Assigned Physician: Vitaly Ho Reviewed and Electronically Signed By: Vitaly Ho Signed Date: 04/16/2024 09:37 ET Workstation ID: [id number] Transcribed By: Self Edit Transcribed Date: 04/16/2024 09:33 ET Narrative 04/16/2024 9:37 AM EST CLINICAL: The patient is a 68 years Female presenting for routine screening mammography. COMPARISON: 04/14/2023. ?? TECHNIQUE: Full-field digital mammography of the breasts bilaterally consisting of tomosynthesis in MLO and CC projection is performed in the [employer] 2000-D unit. ??Computer aided detection utilizing the [...] MLO and CC projection is performed in theGlassBoxographe 2000-D unit. Computer aided detection utilizing the MeetMeystem was utilized. FINDINGS: The breasts are again [...] for biopsy. PQRI CPT II 3342F Code 94614, 07220 PQRI 225 CPT II 7025F TISSUE DENSITY: There are scattered areas of fibroglandular density.(BI-RADS category B) IMPRESSION: Benign. BI-RADS CATEGORY: 2 - BENIGN RECOMMENDATION: Screening bilateral mammogram is recommended in 1 year. Mammo Location: [facility], [facility], [address] [place] [id number] -------- FINAL REPORT -------- Dictated By: Vitaly Ho Dictated Date: 04/16/2024 09:33 ET Assigned Physician: Vitaly Ho Reviewed and Electronically Signed By: Vitaly Ho Signed Date: 04/16/2024 09:37 ET Workstation ID: [id number] Transcribed By: Self Edit Transcribed Date: 04/16/2024 [...] probability of hip fracture of 11.1%. Code 60714 -------- FINAL REPORT -------- Dictated By: Vitaly Ho Dictated Date: 03/08/2024 11:05 ET Assigned Physician: Vitaly Ho Reviewed and Electronically Signed By: Vitaly Ho Signed Date: 03/08/2024 11:08 ET Workstation ID: [id number] Transcribed By: Self Edit Transcribed Date: 03/08/2024 [...] bone mineral density at L1-3 is 0.991 gm/xb9hwodg is 85% of that of young normals [...] probability of hip fracture of 11.1%. Code 61058 -------- FINAL REPORT -------- Dictated By: Vitaly Ho Dictated Date: 03/08/2024 11:05 ET Assigned Physician: Vitaly Ho Reviewed and Electronically Signed By: Vitaly Ho Signed Date: 03/08/2024 11:08 ET Workstation ID: [id number] Transcribed By: Self Edit Transcribed Date: 03/08/2024 11:05 ET Glen Pugh MD IM DXA PROCEDURES Final R esult from Last 3 Months or Most Recently Relevant to Health Maintenance Insurance MEDICAID - [place] [employer] MEDICARE ADVANTAGE [employer] MEDICARE Care Teams Cable Splicer Apprentice Relationship Specialty Start Date End Date Glen Pugh MD [address] [place] [address] PCP - General 10/14/23
--- OUTSIDE RECORDS SUMMARY | 2024-06-21 20:33 | XMS_ITS | Encounter Summary ---
Author Organization [facility] [place] [address] Care Team Providers Care Aerial Sprayer Name Role Phone Glen Pugh MD Primary Care Provider +1- [phone] Encounter Details Date Type Department Care Team (Late st Contact Info) Description 06/05/2024 Lab Requisition [facility] Lab [address] [facility] [place] [phone] Glen Pugh MD [address] [place], [place] [phone] Type 2 diabetes mellitus without complications (CMS/HCC); Essential (primary) hypertension; Atherosclerotic heart disease of [place] coronary artery without angina pectoris; Hyperlipidemia, unspecified [...] Essential (primary) hypertension Atherosclerotic heart disease of [place] coronary artery without angina pectoris Hyperlipidemia, unspecified FOLATE Routine 06/05/2024 8:07 AM EDT Type 2 diabetes mellitus without complications (CMS/HCC) Essential (primary) hypertension Atherosclerotic heart disease of [place] coronary artery without angina pectoris Hyperlipidemia, unspecified VITAMIN B12 Routine 06/05/2024 8:07 AM EDT Type 2 diabetes mellitus without complications (CMS/HCC) Essential (primary) hypertension Atherosclerotic heart disease of [place] coronary artery without angina pectoris Hyperlipidemia, unspecified BASIC METABOLIC PANEL Routine 06/05/2024 8:07 AM EDT Type 2 diabetes mellitus without complications ([facility]/HCC) Essential (primary) hypertension Atherosclerotic heart disease of [place] coronary artery without angina pectoris Hyperlipidemia, unspecified documented in this encounter Results * (ABNORMAL) Vitamin B12 (06/05/2024 8:07 AM EDT) Pathologist [facility] Vitamin B-12 1,075(H) 250 - 900 pcg/mL LAB CHEMISTRY METHOD 06/05/2024 12:47 PM EDT [facility] Blood Venous blood specimen / Unknown Venipuncture / Unknown 06/05/2024 8:07 AM EDT 06/05/2024 11:02 AM EDT us Glen Pugh MD LAB BLOOD ORDERABLES Final Result Performing Organization Address [facility] Co de Phone Number [facility] [address] [place] [address], * (ABNORMAL) Folate (06/05/2024 8:07 AM EDT) Pathologist [facility] Folate >20.0(H) 2.8 - 17.0 ng/ml LAB CHEMISTRY METHOD 06/05/2024 12:47 PM EDT [facility] Blood Venous blood specimen / Unknown Venipuncture / Unknown 06/05/2024 8:07 AM EDT 06/05/2024 11:02 AM EDT us Glen Pugh MD LAB BLOOD ORDERABLES Final Result [facility] [address] [place] [address], [place] [phone] * Lipid panel with reflex to direct LDL (06/05/2024 8:07 AM EDT) Cholesterol 159 0 - 200 mg/dL LAB CHEMISTRY METHOD 06/05/2024 12:47 PM EDT [facility] Triglycerides 99 0 - 150 mg/dL LAB CHEMISTRY METHOD 06/05/2024 12:47 PM EDT [facility] HDL 78 >=40 mg/dL LAB CHEMISTRY METHOD 06/05/2024 12:47 PM EDT [facility] LDL Calculated 61 0 - 100 mg/dL LAB CHEMISTRY METHOD 06/05/2024 12:47 PM EDT [facility] VLDL Cholesterol Irvin 19.8 mg/dL LAB CHEMISTRY METHOD 06/05/2024 12:47 PM EDT [facility] Non HDL Chol. (LDL+VLDL) 81 <145 mg/dL LAB CHEMISTRY METHOD 06/05/2024 12:47 PM EDT [facility] Chol/HDL Ratio 2.0 0.0 - 4.4 LAB CHEMISTRY METHOD 06/05/2024 12:47 PM EDT [facility] Blood Venous blood specimen / Unknown Venipuncture / Unknown 06/05/2024 8:07 AM EDT 06/05/2024 11:02 AM EDT Glen Pugh MD LAB BLOOD ORDERABLES Final Result [facility] [address] [place] [address], [place] [phone] * (ABNORMAL) Basic metabolic panel (06/05/2024 8:07 AM EDT) Sodium 141 133 - 145 mmol/L LAB CHEMISTRY METHOD 06/05/2024 12:21 PM [facility] Potassium 5.1 3.5 - 5.5 mmol/L LAB CHEMISTRY METHOD 06/05/2024 12:21 PM [facility] Chloride 108 96 - 110 mmol/L LAB CHEMISTRY METHOD 06/05/2024 12:21 PM [facility] CO2 28 21 - 32 mmol/L LAB CHEMISTRY METHOD 06/05/2024 12:21 PM [facility] Anion Gap 5 3 - 11 LAB CHEMISTRY METHOD 06/05/2024 12:21 PM [facility] Glucose 92 70 - 100 mg/dL LAB CHEMISTRY METHOD 06/05/2024 12:21 PM [facility] BUN 29(H) 5 - 25 mg/dL LAB CHEMISTRY METHOD 06/05/2024 12:21 PM [facility] Creatinine 0.95 0.50 - 1.10 mg/dL LAB CHEMISTRY METHOD 06/05/2024 12:21 PM [facility] eGFR 65 >=60 mL/min/1. 73m2 LAB CHEMISTRY METHOD 06/05/2024 12:21 PM [facility] Comment:Calculation based on the??Chronic Kidney Disease Epidemiology Collaboration (CKD-EPI) equation refit??without adjustment for race. BUN/Creatinine Ratio 30.5 LAB CHEMISTRY METHOD 06/05/2024 12:21 PM [facility] Calcium 8.9 8.5 - 10.5 mg/dL LAB CHEMISTRY METHOD 06/05/2024 12:21 PM [facility] Blood Venous blood specimen / Unknown Venipuncture / Unknown 06/05/2024 8:07 AM EDT 06/05/2024 11:02 AM EDT us Glen Pugh MD LAB BLOOD ORDERABLES Final Result [facility] [address] [place] [address], documented in this encounter Visit Diagnoses Diagnosis Type 2 diabetes mellitus without complications Essential (primary) hypertension Unspecified essential hypertension Atherosclerotic heart disease of [place] coronary artery without angina pectoris Hyperlipidemia, unspecified documented in this encounter Care Teams Aerial Sprayer Relationship Specialty Start Date End Date Glen Pugh MD [address] [place] [address] PCP - General 10/14/23 documented as of this encounter
--- NOTE | 2024-06-21 20:56 | PHA.MEDREC ---
Pharmacy Consult ? Medication Reconciliation Pharmacy has completed the medication reconciliation Utilized list from [facility].
--- NOTE | 2024-06-21 21:20 | PC.NURSE ---
MRi screening form completed with pt, allergies confirmed. form faxed to MRI at this time. pt offers no complaints.
[2024-06-21 23:02] VITALS: BP 159/80; PULSE 80; RESP 16; TEMP 36.6; O2SAT 95
[2024-06-22 04:09] VITALS: BP 128/65; PULSE 76; RESP 18; TEMP 36.5; O2SAT 93
[2024-06-22] MEDS: Pantoprazole Sodium 40 MG/10 ML VIAL IVPUSH (06:07)
[2024-06-22 06:32] VITALS: BP 147/70; PULSE 72; RESP 18; TEMP 36.7; O2SAT 96
[2024-06-22 07:15] LABS: MANUAL DIFF FLAG NO
[2024-06-22 07:18] LABS: Basophils Percent Auto 0.4 % (0-2); Eosinophils Absolute Auto 0.2 X10*3/uL (0.0-0.4); Eosinophils Percent Auto 3.7 % (0-4); Hematocrit 36.6 % (37.0-47.0); Hemoglobin 12.4 g/dl (12.0-16.0); Imm Gran Abs Auto 0.04 X10*3/uL (0.00-0.03); Imm Gran Pct Auto 0.7 % (0.0-0.4); Lymphocytes Absolute Auto 1.3 X10*3/uL (1.2-4.9); Lymphocytes Percent Auto 22.8 % (20-40); Mean Corpuscular HGB Conc 33.9 g/dl (31.0-35.0); Mean Corpuscular Hemoglobin 34.4 pg (27.0-33.0); Mean Corpuscular Volume 101.7 fL (80.0-98.0); Mean Platelet Volume 10.2 fL (9.4-12.3); Monocytes Absolute Auto 0.5 X10*3/uL (0.1-1.2); Monocytes Percent Auto 8.8 % (2-11); Neutrophils Absolute Auto 3.6 x10*3/uL (2.0-8.3); Neutrophils Percent Auto 63.6 % (45-73); Platelet Count 219 X10*3/uL (160-400); Red Cell Distribution Width 14.1 % (11.0-16.0); White Blood Count 5.7 X10*3/uL (4.8-10.8)
[2024-06-22 07:37] LABS: Anion Gap 8 (12-20); Blood Urea Nitrogen 20 mg/dL (9-16); Calcium 8.2 mg/dL (8.4-10.2); Carbon Dioxide 21 mmol/L (22-29); Chloride 113 mmol/L (96-108); Creatinine Clr Calc Pharmacy 71.1; Estimated Glomerular Filt Rate > 60; Glucose Random 98 mg/dL (60-115); Potassium 4.4 mmol/L (3.3-5.1); Sodium 138 mmol/L (135-145)
[2024-06-22 08:00] VITALS: BP 147/73; PULSE 70; RESP 18; TEMP 36.5; O2SAT 96
[2024-06-22] MEDS: 0.9 % Sodium Chloride Flush 3 ML SYRINGE IVFLUSH ×2 (08:58→15:20)
--- NOTE | 2024-06-22 09:01 | MHC.EDTECH ---
pt arrived to overflow, clean linens provided, oriented to room and controls, pt resting comfortably at this time
[2024-06-22 09:26] LABS: Alanine Aminotransferase 74 U/L (0-31); Albumin Level 3.3 g/dL (3.5-5.0); Alkaline Phosphatase 294 U/L (39-117); Aspartate Amino Transferase 50 U/L (5-31); Bilirubin Direct 1.2 mg/dL (0.0-0.5); Bilirubin Total 1.8 mg/dL (0.0-1.0); Total Protein 6.1 g/dL (6.5-8.0)
[2024-06-22 10:52] VITALS: BP 137/70
[2024-06-22] MEDS: Divalproex Sodium 250 MG TABLET.DR 750 MG PO ×2 (10:52→21:15)
[2024-06-22] MEDS: lisinopriL 10 MG TABLET PO (10:52)
[2024-06-22] MEDS: Phenytoin Sodium Extended 100 MG CAPSULE 200 MG PO ×2 (10:52→21:14)
[2024-06-22] MEDS: FLUoxetine HCl 20 MG CAPSULE 40 MG PO (10:53)
[2024-06-22] MEDS: amantadine HCL 100 MG CAPSULE PO (10:53)
[2024-06-22] MEDS: Gabapentin 100 MG CAPSULE PO ×2 (10:53→21:15)
[2024-06-22] MEDS: FLUoxetine HCl 10 MG CAPSULE PO (10:53)
--- NOTE | 2024-06-22 11:57 | PC.NURSE ---
MRI department called to perform MRI and asked about NPO status. Lunch tray with clear liquids was given minutes prior to this phone call (per orders). Patient had small amount of chicken broth. MRI staff stated that the patient has to be NPO for at least 6 hours prior to MRI. Instructed to allow the patient to finish her lunch tray, and then remain NPO until MRI is completed. MD Sohail updated regarding this delay.
--- NOTE | 2024-06-22 12:20 | PM.GICN ---
History of Present Illness Data of Consult Service Date: 06/22/24 Requesting physician: Sarath Amezquita Primary Care Provider: Glen Pugh MD HPI Reason for consult: Elevated LFTs 68 y.o F with PMH of etOH use disorder with resultant withdrawal seizures, tremors likely from PD, hx of PE 01/2024 on eliquis who was admitted to the hospital for epigastric pain and elevated LFTs. Gastroenterology consulted for further evaluation. Pt reports upper abd pain and burning retrosternal pain x 3-4 days assoc with nausea but no vomiting, loss of appetite or change in bowels. Pain triggered and worsened by food. No fevers, chills. No hx of similar pain in the past. On arrival to ER vitals were stable no fevers. Labs without leukocytosis. LFTs are abnormal with bili 1.6 ALP 348 and elevated AST, ALT. US Abd shows CBD of 8 mm which is slightly generous for her age. On bedside assessment reports improvement of heartburn since coming in. Again, no N/V in fact she is eager to eat once the MRI is done. She does have prior hx of etOH use. Quit etOH a few years ago. Last dose of eliquis was 4/3 AM. Review of Systems Review of Systems: Yes all other systems are reviewed and are negative PMFSH Past Medical History Medical History Fall Dyslipidemia Colonoscopy refused Osteoporosis Hypothyroid HTN (hypertension) Aortic insufficiency Osteopenia CKD (chronic kidney disease) stage 3, GFR 30-59 ml/min Mitral valve disorder Parkinson's disease without dyskinesia Seizure Parkinson's disease Hx of fracture of femur History of alcohol abuse Diabetes History of encephalopathy History of traumatic subdural hematoma Tobacco dependence Atherosclerotic cardiovascular disease Non-rheumatic aortic stenosis Preoperative cardiovascular examination Myocardial infarct History of coronary artery disease Seizure disorder Hypertension Fall Family History Family History Mother No problems noted. Father No problems noted. Surgical History Surgical History History of breast biopsy History of tubal ligation History of hip surgery Social History Social History Household Members: Other Housing: Other Housing Other:: assisted home Do you presently have visiting nurse or other home services: No Alcohol intake: former Patient Tobacco Use Status: Current everyday Tobacco user Tobacco use type: Cigarette Cigarette Packs Per Day: 1 Cigarettes Per Day: 4 Years Smoked: 40 Smoked in Last 30 Days: Yes Patient Interested in Nicotine Replacement: No Patient Given Instructions on How to Stop Smoking: Yes Date Education Initiated: 06/22/24 Second Hand Smoke Exposure: No Use of substances other than those prescribed or required for medical reasons: No Have you been hit, kicked, punched, or otherwise hurt by someone within the past year? 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 Meds Allergies Allergy/AdvReac Type Severity Reaction Status Date / Time adhesive tape Allergy Unknown hives Unverified 05/29/24 08:33 amlodipine [From Norvasc] Allergy Unknown Swelling Unverified 05/29/24 08:33 od hands/feet azithromycin [AZITHROMYCIN] Allergy Unknown HIVES Verified 01/29/24 01:00 bacitracin [From Cortisporin] Allergy Unknown Eye Unverified 05/29/24 08:33 irritation brompheniramine Allergy Unknown Body Rash Unverified 05/29/24 08:33 [From Dimetapp Cold-Allergy (PE)] calcium [From DHEA] Allergy Unknown Unknown Unverified 05/29/24 08:33 calcium carbonate [From DHEA] Allergy Unknown Unknown Unverified 05/29/24 08:33 cefaclor Allergy Unknown Perineum Unverified 05/29/24 08:33 rash chlorpheniramine Allergy Unknown Body Rash Unverified 05/29/24 08:33 [From Fedahist] clindamycin Allergy Unknown GI Unverified 05/29/24 08:33 upset/pain/vomiting devil's claw Allergy Unknown unsure Unverified 05/29/24 08:33 reaction dexbrompheniramine Allergy Unknown Body Rash Unverified 05/29/24 08:33 [From Drixoral] diphenhydramine Allergy Unknown Body Rash Unverified 05/29/24 08:33 [From Benadryl] doxazosin Allergy Unknown Extreme Unverified 05/29/24 08:33 anxiety erythromycin base Allergy Unknown Perineum Unverified 05/29/24 08:33 rash garlic Allergy Unknown Unknown Unverified 05/29/24 08:33 gentamicin [From Garamycin] Allergy Unknown [eye Unverified 05/29/24 08:33 drops] Eye swelling ginkgo biloba Allergy Unknown piercing Unverified 05/29/24 08:33 pain in head guaifenesin [From Fedahist] Allergy Unknown Body Rash Unverified 05/29/24 08:33 hydralazine Allergy Unknown Swelling Unverified 05/29/24 08:33 of feet/legs hydrochlorothiazide Allergy Unknown Itchy palms Unverified 05/29/24 08:33 hydrocortisone Allergy Unknown Eye Unverified 05/29/24 08:33 [From Cortisporin] irritation Macrolide Antibiotics Allergy Unknown Unknown Verified 02/03/24 17:28 meclizine Allergy Unknown very dry Unverified 05/29/24 08:33 mouth methylsulfonylmethane Allergy Unknown Itchy palms Unverified 05/29/24 08:33 [From MSM] nebivolol [From Bystolic] Allergy Unknown Swelling Unverified 05/29/24 08:33 of feet/ legs neomycin [From Cortisporin] Allergy Unknown Eye Unverified 05/29/24 08:33 irritation nifedipine [From Procardia] Allergy Unknown Swelling Unverified 05/29/24 08:33 of feet and legs nut - unspecified Allergy Unknown mouth sores Unverified 05/29/24 08:33 Peanut Butter Allergy Unknown mouth sores Unverified 05/29/24 08:33 penicillin V Allergy Unknown Body rash Unverified 05/29/24 08:33 Penicillins Allergy Unknown body rash Unverified 05/29/24 08:33 phenylephrine Allergy Unknown Body Rash Unverified 05/29/24 08:33 [From Dimetapp Cold-Allergy (PE)] polymyxin B Allergy Unknown Eye Unverified 05/29/24 08:33 [From Cortisporin] irritation prasterone (DHEA) [From DHEA] Allergy Unknown Unknown Unverified 05/29/24 08:33 propoxyphene [From Darvon] Allergy Unknown Unknown Unverified 05/29/24 08:33 pseudoephedrine Allergy Unknown Body Rash Unverified 05/29/24 08:33 [From Drixoral] shellfish derived Allergy Unknown itchy body Unverified 05/29/24 08:33 Sulfa (Sulfonamide Allergy Unknown Itchy palms Unverified 05/29/24 08:33 Antibiotics) sulfamethoxazole Allergy Unknown itchy palms Unverified 05/29/24 08:33 [From Bactrim] trimethoprim [From Bactrim] Allergy Unknown itchy palms Unverified 05/29/24 08:33 prednisone Allergy Flushing Unverified 05/29/24 08:33 tetracycline Allergy Unknown Unverified 06/21/24 16:36 Carditone Allergy Unknown Swelling Uncoded 05/29/24 08:33 of feet/legs; itchy body Active Medications: Current Medications Acetaminophen (Acetaminophen 325 Mg Tablet) 650 mg PO Q6H PRN PRN Reason: Pain, Mild 1-3,fever,headache Al Hydroxide/Mg Hydroxide (Magnesium Hydrox/Alum Hydrox 30 Ml Oral.Susp) 30 ml PO DAILY PRN PRN Reason: GI Distress Amantadine HCl (Amantadine Hcl 100 Mg Capsule) 100 mg PO DAILY [facility] Last Admin: 06/22/24 10:53 Dose: 100 mg Bisacodyl (Bisacodyl 10 Mg Supp.Rect) 10 mg HI DAILY PRN PRN Reason: Constipation Calcium Carbonate (Calcium Carbonate 750 Mg Tab.Chew) 750 mg PO Q4H PRN PRN Reason: Heartburn Cyanocobalamin (Cyanocobalamin (Vitamin B-12) 500 Mcg Tablet) 500 mcg PO DAILY [facility] Divalproex Sodium (Divalproex Sodium 250 Mg Tablet.Dr) 750 mg PO BID [facility] Last Admin: 06/22/24 10:52 Dose: 750 mg Docusate Sodium (Docusate Sodium 100 Mg Capsule) 100 mg PO BID [facility] Fluoxetine HCl (Fluoxetine Hcl 10 Mg Capsule) 10 mg PO DAILY [facility] Last Admin: 06/22/24 10:53 Dose: 10 mg Fluoxetine HCl (Fluoxetine Hcl 20 Mg Capsule) 40 mg PO DAILY [facility] Last Admin: 06/22/24 10:53 Dose: 40 mg Folic Acid (Folic Acid 1 Mg Tablet) 1 mg PO DAILY [facility] Gabapentin (Gabapentin 100 Mg Capsule) 100 mg PO BID [facility] Last Admin: 06/22/24 10:53 Dose: 100 mg Guaifenesin (Guaifenesin 200 Mg/10 Ml 10 Ml Liquid) 10 ml PO Q4H PRN PRN Reason: Cough Guaifenesin (Guaifenesin La 600 Mg Tab.Er.12h) 600 mg PO BID PRN PRN Reason: Cough Lisinopril (Lisinopril 10 Mg Tablet) 10 mg PO DAILY [facility]; Protocol Last Admin: 06/22/24 10:52 Dose: 10 mg Loperamide HCl (Loperamide Hcl 2 Mg Capsule) 2 mg PO Q6H PRN PRN Reason: Loose Stool Magnesium Hydroxide (Milk Of Magnesia 30 Ml Oral.Susp) 30 ml PO DAILY PRN PRN Reason: Constipation Melatonin (Melatonin 3 Mg Tablet) 6 mg PO BEDTIME PRN PRN Reason: Insomnia Mirtazapine (Mirtazapine 15 Mg Tablet) 15 mg PO BEDTIME [facility] Nitroglycerin (Nitroglycerin 0.4 Mg Tab.Subl) 0.4 mg SUBLINGUAL Q5M PRN PRN Reason: Chest Pain Ondansetron HCl (Ondansetron Hcl 4 Mg/2 Ml Vial) 4 mg IVPUSH Q8H PRN PRN Reason: Nausea and Vomiting Pantoprazole Sodium (Pantoprazole Sodium 40 Mg/10 Ml Vial) 40 mg IVPUSH DAILY@0630 [facility] Last Admin: 06/22/24 06:07 Dose: 40 mg Phenytoin Sodium (Phenytoin Sodium Extended 100 Mg Capsule) 200 mg PO BID [facility] Last Admin: 06/22/24 10:52 Dose: 200 mg Polyethylene Glycol (Polyethylene Glycol 3350 17 Gm Powd.Pack) 17 gm PO DAILY [facility] Pravastatin Sodium (Pravastatin Sodium 20 Mg Tablet) 20 mg PO BEDTIME [facility] Senna (Sennosides 8.6 Mg Tablet) 17.2 mg PO BEDTIME [facility] Sodium Chloride (0.9 % Sodium Chloride Flush 3 Ml Syringe) 3 ml IVFLUSH QSHIFT [facility] Last Admin: 06/22/24 08:58 Dose: 3 ml Vitamin D (Cholecalciferol (Vitamin D3) 25 Mcg Tablet) 50 mcg PO DAILY [facility] Home Medications ?Medication ?Instructions ?Recorded ?Confirmed ?Last Taken ?Type divalproex 250 mg tablet,delayed 3 tab PO BID 01/26/21 06/21/24 12/09/22 History release fluoxetine 40 mg capsule 1 cap PO DAILY 01/26/21 06/21/24 12/09/22 History folic acid 1 mg tablet 1 tab PO DAILY 01/26/21 06/21/24 12/09/22 History pravastatin 20 mg tablet 1 tab PO BEDTIME 01/26/21 06/21/24 12/09/22 History nitroglycerin 0.4 mg sublingual 0.4 mg sublingual Q5M PRN Chest 06/03/22 06/21/24 Unknown History tablet Pain phenytoin sodium extended 100 mg 2 tab PO BID 06/03/22 06/21/24 12/09/22 History capsule amantadine HCl 100 mg tablet 100 mg PO DAILY 12/09/22 06/21/24 12/09/22 History gabapentin 100 mg capsule 100 mg PO BID 07/28/23 06/21/24 Unknown History sennosides 8.6 mg tablet (senna) 17.2 mg PO BEDTIME 07/28/23 06/21/24 Unknown History bisacodyl 10 mg rectal suppository 10 mg HI DAILY PRN Constipation 01/11/24 06/21/24 Unknown History cholecalciferol (vitamin D3) 50 50 mcg PO DAILY 01/11/24 06/21/24 Unknown History mcg (2,000 unit) capsule cyanocobalamin (vitamin B-12) 500 500 mcg PO DAILY 01/11/24 06/21/24 Unknown History mcg tablet docusate sodium 100 mg capsule 100 mg PO BID 01/11/24 06/21/24 Unknown History (Colace) lisinopril 10 mg tablet 10 mg PO DAILY 01/11/24 06/21/24 Unknown History loperamide 2 mg capsule 2 mg PO Q6H PRN Loose Stool 01/11/24 06/21/24 Unknown History (Anti-Diarrheal (loperamide)) magnesium hydroxide 400 mg/5 mL 30 ml PO DAILY PRN Constipation 01/11/24 06/21/24 Unknown History oral suspension (Milk of Magnesia) acetaminophen 500 mg tablet 1,000 mg PO Q6H PRN Pain (Scale 02/03/24 06/21/24 Unknown History Score 1-3) aluminum-mag hydroxide-simethicone 30 ml PO DAILY PRN GI Distress 02/03/24 06/21/24 Unknown History 200 mg-200 mg-20 mg/5 mL oral susp (Mintox) mirtazapine 15 mg tablet 15 mg PO BEDTIME 02/03/24 06/21/24 Unknown History fluoxetine 10 mg capsule 10 mg PO DAILY 05/25/24 06/21/24 Unknown History guaifenesin 100 mg/5 mL oral liquid 200 mg PO Q4H PRN Cough 06/21/24 06/21/24 Unknown History guaifenesin 600 mg tablet, 600 mg PO BID PRN Cough 06/21/24 06/21/24 Unknown History extended release 12 hr (Mucinex) Physical Exam Vital Signs: Vital Signs: Last Vital Signs Temp 98.0 F 06/22/24 06:32 Pulse 72 06/22/24 06:32 Resp 18 06/22/24 06:32 BP 137/70 06/22/24 10:52 Pulse Ox 96 06/22/24 06:32 O2 Del Method Room Air 06/22/24 06:32 BMI result Body Mass Index 29.9 Frail elderly female nonicteric abd nontender, nondistended, neg murphys no overt resp distress mild RINA Results Labs 06/22/24 06:52 06/22/24 06:52 Labs: Short CBC 06/21/24 06/22/24 Range/Units 16:47 06:52 WBC 7.1 5.7 (4.8-10.8) X10*3/uL Hgb 13.1 12.4 (12.0-16.0) g/dl Hct 39.1 36.6 L (37.0-47.0) % Plt Count 248 219 (160-400) X10*3/uL BMP 06/21/24 06/22/24 16:47 06:52 Sodium 138 138 Potassium 4.5 4.4 Chloride 108 113 H Carbon Dioxide 23 21 L BUN 19 H 20 H Creatinine 0.73 0.76 Calcium 8.8 8.2 L D Liver Function 06/21/24 06/22/24 Range/Units 16:47 06:52 Total Bilirubin 1.6 H 1.8 H (0.0-1.0) mg/dL Direct Bilirubin 1.2 H (0.0-0.5) mg/dL AST 62 H 50 H (5-31) U/L ALT 94 H 74 H (0-31) U/L Alkaline Phosphatase 348 H 294 H (39-117) U/L Albumin 3.7 3.3 L (3.5-5.0) g/dL Imaging US - abdomen: Radiologist's impression: The liver is normal in size, measuring 14.4 cm in length. Normal echogenicity without focal lesions. Normal hepatopetal flow is seen within the portal vein. The common bile duct is dilated, measuring 0.8 cm. Distended gallbladder, measuring 5.2 cm in transverse dimension. No cholelithiasis, however there is sludge. No wall thickening or pericholecystic fluid. Negative sonographic Irby sign. The right kidney is normal in echogenicity. Unremarkable limited evaluation of the pancreas. Assessment and Plan (1) Abdominal pain: Status: Acute (2) Elevated transaminase level: Status: Acute (3) Dilated cbd, acquired: Status: Acute Plan Presentation somewhat atypical for biliary type pain. Agree with MRCP to r/o CBD stone. Other ddx include biliary stricture vs SOD vs infiltrative liver disease. Plan: - MRCP as already ordered - [facility] for 6pm per bedside RN - Cont to hold eliquis for now - If mrcp + for CBD stone, will likely need ERCP. Signed out to weekend GI - Dr Wallace Thank you for allowing me to participate in her care. Please do not hesitate to reach out for questions or concerns. Procedures Date of Service Date of Service: 06/22/24
--- NOTE | 2024-06-22 15:11 | P.PNIM_ITS ---
Subjective Subjective Date of Service: 06/22/24 Interval History: epigastric burning improved no RUQ pain, no nausea or vomiting, no hx of gallstones Review of Systems Review of Systems: Yes all other systems are reviewed and are negative Physical Exam 2 Vital Signs: Vital Signs: Last Vital Signs Temp 97.7 F 06/22/24 08:00 Pulse 70 06/22/24 08:00 Resp 18 06/22/24 08:00 BP 137/70 06/22/24 10:52 Pulse Ox 96 06/22/24 08:00 O2 Del Method Room Air 06/22/24 08:00 BMI result Body Mass Index 29.9 Gen: in no acute distress HEENT: sclera anicteric, moist mucus membranes Neck: supple Lungs: clear to auscultation bilaterally Heart: regular rate and rhythm, no murmurs Abd: soft, non-tender, non-distended, no Irby sign Ext: no edema Skin: warm/well-perfused Neuro: alert and oriented x3, no focal findings Psych: appropriate affect Objective Data Active Medications Acetaminophen (Acetaminophen 325 Mg Tablet) 650 mg PO Q6H PRN PRN Reason: Pain, Mild 1-3,fever,headache Al Hydroxide/Mg Hydroxide (Magnesium Hydrox/Alum Hydrox 30 Ml Oral.Susp) 30 ml PO DAILY PRN PRN Reason: GI Distress Amantadine HCl (Amantadine Hcl 100 Mg Capsule) 100 mg PO DAILY [facility] Last Admin: 06/22/24 10:53 Dose: 100 mg Documented By: SHAUNA Bisacodyl (Bisacodyl 10 Mg Supp.Rect) 10 mg [place] DAILY PRN PRN Reason: Constipation Calcium Carbonate (Calcium Carbonate 750 Mg Tab.Chew) 750 mg PO Q4H PRN PRN Reason: Heartburn Cyanocobalamin (Cyanocobalamin (Vitamin B-12) 500 Mcg Tablet) 500 mcg PO DAILY [facility] Divalproex Sodium (Divalproex Sodium 250 Mg Tablet.) 750 mg PO BID [facility] Last Admin: 06/22/24 10:52 Dose: 750 mg Documented By: SHAUNA Docusate Sodium (Docusate Sodium 100 Mg Capsule) 100 mg PO BID [facility] Fluoxetine HCl (Fluoxetine Hcl 10 Mg Capsule) 10 mg PO DAILY [facility] Last Admin: 06/22/24 10:53 Dose: 10 mg Documented By: SHAUNA Fluoxetine HCl (Fluoxetine Hcl 20 Mg Capsule) 40 mg PO DAILY [facility] Last Admin: 06/22/24 10:53 Dose: 40 mg Documented By: SHAUNA Folic Acid (Folic Acid 1 Mg Tablet) 1 mg PO DAILY [facility] Gabapentin (Gabapentin 100 Mg Capsule) 100 mg PO BID [facility] Last Admin: 06/22/24 10:53 Dose: 100 mg Documented By: SHAUNA Guaifenesin (Guaifenesin 200 Mg/10 Ml 10 Ml Liquid) 10 ml PO Q4H PRN PRN Reason: Cough Guaifenesin (Guaifenesin La 600 Mg Tab.Er.12h) 600 mg PO BID PRN PRN Reason: Cough Lisinopril (Lisinopril 10 Mg Tablet) 10 mg PO DAILY [facility]; Protocol Last Admin: 06/22/24 10:52 Dose: 10 mg Documented By: SHAUNA Loperamide HCl (Loperamide Hcl 2 Mg Capsule) 2 mg PO Q6H PRN PRN Reason: Loose Stool Magnesium Hydroxide (Milk Of Magnesia 30 Ml Oral.Susp) 30 ml PO DAILY PRN PRN Reason: Constipation Melatonin (Melatonin 3 Mg Tablet) 6 mg PO BEDTIME PRN PRN Reason: Insomnia Mirtazapine (Mirtazapine 15 Mg Tablet) 15 mg PO BEDTIME [facility] Nitroglycerin (Nitroglycerin 0.4 Mg Tab.Subl) 0.4 mg SUBLINGUAL Q5M PRN PRN Reason: Chest Pain Ondansetron HCl (Ondansetron Hcl 4 Mg/2 Ml Vial) 4 mg IVPUSH Q8H PRN PRN Reason: Nausea and Vomiting Pantoprazole Sodium (Pantoprazole Sodium 40 Mg/10 Ml Vial) 40 mg IVPUSH DAILY@0630 [facility] Last Admin: 06/22/24 06:07 Dose: 40 mg Documented By: SU Phenytoin Sodium (Phenytoin Sodium Extended 100 Mg Capsule) 200 mg PO BID [facility] Last Admin: 06/22/24 10:52 Dose: 200 mg Documented By: SHAUNA Polyethylene Glycol (Polyethylene Glycol 3350 17 Gm Powd.Pack) 17 gm PO DAILY [facility] Pravastatin Sodium (Pravastatin Sodium 20 Mg Tablet) 20 mg PO BEDTIME [facility] Senna (Sennosides 8.6 Mg Tablet) 17.2 mg PO BEDTIME [facility] Sodium Chloride (0.9 % Sodium Chloride Flush 3 Ml Syringe) 3 ml IVFLUSH QSHIFT [facility] Last Admin: 06/22/24 08:58 Dose: 3 ml Documented By: SHAUNA Vitamin D (Cholecalciferol (Vitamin D3) 25 Mcg Tablet) 50 mcg PO DAILY [facility] Labs 06/22/24 06:52 06/22/24 06:52 Labs: Laboratory Results - last 24 hr 06/21/24 06/21/24 06/22/24 16:47 18:23 06:52 MCV 101.3 H 101.7 H MCH 33.9 H 34.4 H MCHC 33.5 33.9 RDW 13.8 14.1 Plt Count 248 219 MPV 10.1 10.2 Immature Gran % (Auto) 0.4 0.7 H Neut % (Auto) 75.6 H 63.6 Lymph % (Auto) 13.5 L 22.8 [place] % (Auto) 8.7 8.8 Eos % (Auto) 1.4 3.7 Baso % (Auto) 0.4 0.4 Lymph # (Auto) 1.0 L 1.3 [place] # (Auto) 0.6 0.5 Eos # (Auto) 0.1 0.2 Baso # (Auto) 0.0 0.0 Abs Immat Gran (auto) 0.03 0.04 H Absolute Neuts (auto) 5.4 3.6 Absolute Nucleated RBC 0.000 0.000 Nucleated RBC % (auto) 0.0 0.0 Anion Gap 12 8 L Estim Creat Clear Calc 74.0 71.1 Estimated GFR > 60 > 60 Random Glucose 144 H 98 Calcium 8.8 8.2 L D Magnesium 2.0 Total Bilirubin 1.6 H 1.8 H Direct Bilirubin 1.2 H AST 62 H 50 H ALT 94 H 74 H Alkaline Phosphatase 348 H 294 H Total Protein 7.0 6.1 L Albumin 3.7 3.3 L Lipase 47 Influenza Type A (PCR) NEGATIVE Influenza Type B (PCR) NEGATIVE RSV RNA Qual (PCR) NEGATIVE SARS-CoV-2 RNA (RT-PCR) NEGATIVE Assessment and Plan (1) Dilated cbd, acquired: Status: Acute Assessment and Plan: d2 for 68yo F with hx PE on apixaban, Parkinson's disease, mood disorder, HFpEF, seizure disorder, hypertension, and previous CVA presenting with upper abdominal burning and nausea, found to have dilated CBD and elevated alkaline phosphatase CBD dilation - unclear significance; MRI pending; GI consulted; monitor LFTs GERD - IV PPI hx PE - hold apixaban in case needs ERCP Parkinson's disease - continue amantadine HFpEF - appears euvolemic seizure disorder - divalproex and phenytoin HTN - lisinopril hx CVA - statin mood disorder - fluoxetine, mirtazapine VTE ppx - SCDs, hold apixaban dispo - TBD In my clinical judgment, the patient requires continued inpatient hospitalization for the following reasons: MRCP Total time managing care of this patient today: 35 minutes. Quality Stroke Does the patient have a stroke diagnosis?: No VTE Prior VTE?: No VTE Risk Level:: Medical - moderate - high VTE Device Contraindication: N/A - Device Ordered VTE Drug Contraindication: Treatment Not Indicated
--- NOTE | 2024-06-22 15:15 | MHC.CM.PN ---
[[facility]
[2024-06-22 16:00] VITALS: BP 147/73; PULSE 70; RESP 18; TEMP 37; O2SAT 96
--- NOTE | 2024-06-22 18:16 | PC.NURSE ---
Pt has been NPO pending MRI. Pt denies pain, n/v/d. Aware of need for urine and stool samples
[2024-06-22 21:13] LABS: Appearance Urine Clear; Color Urine Dark Yellow; Glucose Urine UA Negative (Negative); Leukocyte Esterase Urine Small (1+) (Negative); Nitrite Urine Negative (Negative); UMIC TRIGGER UACC YES; Urine Blood Negative (Negative); Urine Ketones Negative (Negative); Urine Protein Negative (Neg-Trace)
[2024-06-22] MEDS: Sennosides 8.6 MG TABLET 17.2 MG PO (21:15)
[2024-06-22] MEDS: Pravastatin Sodium 20 MG TABLET PO (21:15)
[2024-06-22] MEDS: Mirtazapine 15 MG TABLET PO (21:15)
[2024-06-22] MEDS: Docusate Sodium 100 MG CAPSULE PO (21:15)
[2024-06-22 21:26] LABS: Bacteria Urine None Seen (None Seen); Hyaline Casts Urine 0-2 /LPF (0-2); RBC Urine 0-2 /HPF (0-2); Squamous Epithelial Cell Urine 0-2 /HPF (0-2); UACC Culture Trigger YES; WBC Urine 0-5 /HPF (0-5)
[2024-06-22 23:27] VITALS: BP 150/71; PULSE 76; RESP 16; TEMP 36; O2SAT 95
[2024-06-23] VITALS (8 sets, daily range): BP systolic 129–177; BP diastolic 44–83; PULSE 63–87; RESP 16–18; TEMP 36.1–36.6; O2SAT 95–98
[2024-06-23] MEDS: Pantoprazole Sodium 40 MG/10 ML VIAL IVPUSH (05:52)
[2024-06-23 06:19] LABS: Alanine Aminotransferase 56 U/L (0-31); Albumin Level 3.1 g/dL (3.5-5.0); Alkaline Phosphatase 268 U/L (39-117); Anion Gap 9 (12-20); Aspartate Amino Transferase 39 U/L (5-31); Bilirubin Direct 1.2 mg/dL (0.0-0.5); Bilirubin Total 1.8 mg/dL (0.0-1.0); Blood Urea Nitrogen 18 mg/dL (9-16); Calcium 8.3 mg/dL (8.4-10.2); Carbon Dioxide 24 mmol/L (22-29); Chloride 111 mmol/L (96-108); Creatinine Clr Calc Pharmacy 72.9; Estimated Glomerular Filt Rate > 60; Glucose Random 73 mg/dL (60-115); Potassium 4.4 mmol/L (3.3-5.1); Sodium 140 mmol/L (135-145); Total Protein 5.6 g/dL (6.5-8.0)
[2024-06-23] MEDS: Cholecalciferol (Vitamin D3) 25 MCG TABLET 50 MCG PO (09:12)
[2024-06-23] MEDS: Cyanocobalamin (Vitamin B-12) 500 MCG TABLET PO (09:12)
[2024-06-23] MEDS: FLUoxetine HCl 20 MG CAPSULE 40 MG PO (09:12)
[2024-06-23] MEDS: lisinopriL 10 MG TABLET PO (09:12)
[2024-06-23] MEDS: Docusate Sodium 100 MG CAPSULE PO ×2 (09:12→19:51)
[2024-06-23] MEDS: Phenytoin Sodium Extended 100 MG CAPSULE 200 MG PO ×2 (09:12→19:51)
[2024-06-23] MEDS: Divalproex Sodium 250 MG TABLET.DR 750 MG PO ×2 (09:12→19:50)
[2024-06-23] MEDS: Gabapentin 100 MG CAPSULE PO ×2 (09:13→19:51)
[2024-06-23] MEDS: Folic Acid 1 MG TABLET PO (09:13)
[2024-06-23] MEDS: FLUoxetine HCl 10 MG CAPSULE PO (09:13)
[2024-06-23] MEDS: 0.9 % Sodium Chloride Flush 3 ML SYRINGE IVFLUSH ×2 (09:14→19:51)
--- NOTE | 2024-06-23 11:00 | PM.GIPN ---
Subjective Subjective Date of Service: 06/23/24 Interval History: mri with dilated proximal cbd and abrupt cut off, ? stricture or stone she has fair appetite no nausea minimal pain today LFT with mild decrease Critical Care Time (minutes): 0 Physical Exam Vital Signs: Vital Signs: Last Vital Signs Temp 97.9 F 06/23/24 07:30 Pulse 63 06/23/24 07:30 Resp 18 06/23/24 07:30 BP 154/67 H 06/23/24 07:30 Pulse Ox 95 06/23/24 07:30 O2 Del Method Room Air 06/23/24 07:30 BMI result Body Mass Index 29.9 EXAM: GENERAL: The patient is frail VITAL SIGNS:see workflow HEENT: mild icteric sclerae, PERRLA, EOMI. Oropharynx clear. Moist mucous membranes. Conjunctivae appear well perfused. No thyroid mass. CHEST: Chest wall is nontender. HEART: Regular rate and rhythm without murmurs. LUNGS: Clear to auscultation bilaterally. ABDOMEN: Soft, positive bowel sounds, nontender, no organomegaly.no flank tenderness SKIN: No rash, no excessive bruising, petechiae, or purpura. NEUROLOGIC: Cranial nerves II-XII intact without motor/sensory deficit. Psych: normal affect Objective Data Labs 06/22/24 06:52 06/23/24 05:44 Labs: Laboratory Results - last 24 hr 06/22/24 06/23/24 21:02 05:44 Hold Purple Top SEE NOTE Sodium 140 Potassium 4.4 Chloride 111 H Carbon Dioxide 24 Anion Gap 9 L BUN 18 H Creatinine 0.74 Estim Creat Clear Calc 72.9 Estimated GFR > 60 Random Glucose 73 Calcium 8.3 L Total Bilirubin 1.8 H Direct Bilirubin 1.2 H AST 39 H ALT 56 H Alkaline Phosphatase 268 H Total Protein 5.6 L Albumin 3.1 L Urine Color Dark Yellow Urine Appearance Clear Urine pH 6.0 Ur Specific [place] 1.020 Urine Protein Negative Urine Glucose (UA) Negative Urine Ketones Negative Urine Blood Negative Urine Nitrite Negative Ur Leukocyte Esterase Small (1+) H Urine RBC 0-2 Urine WBC 0-5 Ur Squamous Epith Cells 0-2 Urine Bacteria None Seen Hyaline Casts 0-2 Imaging MRI - abdomen: Attestation: I personally reviewed and interpreted this imaging study as follows: (dilated proximal CBD, abrupt cut off ) Procedures Date of Service Date of Service: 06/23/24 Progress Note: A&P Assessment and plan (1) Dilated cbd, acquired: Status: Acute Plan 1/ Obstructive LFT pattern with abn imaging, ?stricture or mass, choledocholithiasis PLAN: 1/ ERCP today for further assessment--pending OR schedule Time Spent With Patient Time: Total time managing care of this patient today ____ minutes. Quality Stroke Does the patient have a stroke diagnosis?: No VTE Prior VTE?: No VTE Risk Level:: Medical - moderate - high VTE Device Contraindication: N/A - Device Ordered VTE Drug Contraindication: Treatment Not Indicated
--- NOTE | 2024-06-23 11:47 | P.PNIM_ITS ---
Subjective Subjective Date of Service: 06/23/24 Interval History: burning esophageal pain resolved with IV PPI; no RUQ pain; no N/V Review of Systems Review of Systems: Yes all other systems are reviewed and are negative Physical Exam 2 Vital Signs: Vital Signs: Last Vital Signs Temp 97.9 F 06/23/24 07:30 Pulse 63 06/23/24 07:30 Resp 18 06/23/24 07:30 BP 154/67 H 06/23/24 07:30 Pulse Ox 95 06/23/24 07:30 O2 Del Method Room Air 06/23/24 07:30 BMI result Body Mass Index 29.9 Gen: in no acute distress HEENT: sclera anicteric, moist mucus membranes Neck: supple Lungs: clear to auscultation bilaterally Heart: regular rate and rhythm, no murmurs Abd: soft, non-tender, non-distended, no Irby sign Ext: no edema Skin: warm/well-perfused Neuro: alert and oriented x3, no focal findings Psych: appropriate affect Objective Data Active Medications Acetaminophen (Acetaminophen 325 Mg Tablet) 650 mg PO Q6H PRN PRN Reason: Pain, Mild 1-3,fever,headache Al Hydroxide/Mg Hydroxide (Magnesium Hydrox/Alum Hydrox 30 Ml Oral.Susp) 30 ml PO DAILY PRN PRN Reason: GI Distress Amantadine HCl (Amantadine Hcl 100 Mg Capsule) 100 mg PO DAILY [facility] Last Admin: 06/22/24 10:53 Dose: 100 mg Documented By: SHAUNA Bisacodyl (Bisacodyl 10 Mg Supp.Rect) 10 mg [place] DAILY PRN PRN Reason: Constipation Calcium Carbonate (Calcium Carbonate 750 Mg Tab.Chew) 750 mg PO Q4H PRN PRN Reason: Heartburn Cyanocobalamin (Cyanocobalamin (Vitamin B-12) 500 Mcg Tablet) 500 mcg PO DAILY [facility] Last Admin: 06/23/24 09:12 Dose: 500 mcg Documented By: KEISHA Divalproex Sodium (Divalproex Sodium 250 Mg Tablet.Dr) 750 mg PO BID [facility] Last Admin: 06/23/24 09:12 Dose: 750 mg Documented By: KEISHA Docusate Sodium (Docusate Sodium 100 Mg Capsule) 100 mg PO BID [facility] Last Admin: 06/23/24 09:12 Dose: 100 mg Documented By: KEISHA Fluoxetine HCl (Fluoxetine Hcl 10 Mg Capsule) 10 mg PO DAILY [facility] Last Admin: 06/23/24 09:13 Dose: 10 mg Documented By: KEISHA Fluoxetine HCl (Fluoxetine Hcl 20 Mg Capsule) 40 mg PO DAILY [facility] Last Admin: 06/23/24 09:12 Dose: 40 mg Documented By: KEISHA Folic Acid (Folic Acid 1 Mg Tablet) 1 mg PO DAILY [facility] Last Admin: 06/23/24 09:13 Dose: 1 mg Documented By: KEISHA Gabapentin (Gabapentin 100 Mg Capsule) 100 mg PO BID [facility] Last Admin: 06/23/24 09:13 Dose: 100 mg Documented By: KEISHA Guaifenesin (Guaifenesin 200 Mg/10 Ml 10 Ml Liquid) 10 ml PO Q4H PRN PRN Reason: Cough Guaifenesin (Guaifenesin La 600 Mg Tab.Er.12h) 600 mg PO BID PRN PRN Reason: Cough Lisinopril (Lisinopril 10 Mg Tablet) 10 mg PO DAILY [facility]; Protocol Last Admin: 06/23/24 09:12 Dose: 10 mg Documented By: KEISHA Loperamide HCl (Loperamide Hcl 2 Mg Capsule) 2 mg PO Q6H PRN PRN Reason: Loose Stool Magnesium Hydroxide (Milk Of Magnesia 30 Ml Oral.Susp) 30 ml PO DAILY PRN PRN Reason: Constipation Melatonin (Melatonin 3 Mg Tablet) 6 mg PO BEDTIME PRN PRN Reason: Insomnia Mirtazapine (Mirtazapine 15 Mg Tablet) 15 mg PO BEDTIME [facility] Last Admin: 06/22/24 21:15 Dose: 15 mg Documented By: ABDIRIZAK Nitroglycerin (Nitroglycerin 0.4 Mg Tab.Subl) 0.4 mg SUBLINGUAL Q5M PRN PRN Reason: Chest Pain Ondansetron HCl (Ondansetron Hcl 4 Mg/2 Ml Vial) 4 mg IVPUSH Q8H PRN PRN Reason: Nausea and Vomiting Pantoprazole Sodium (Pantoprazole Sodium 40 Mg/10 Ml Vial) 40 mg IVPUSH DAILY@0630 [facility] Last Admin: 06/23/24 05:52 Dose: 40 mg Documented By: ABDIRIZAK Phenytoin Sodium (Phenytoin Sodium Extended 100 Mg Capsule) 200 mg PO BID [facility] Last Admin: 06/23/24 09:12 Dose: 200 mg Documented By: KEISHA Polyethylene Glycol (Polyethylene Glycol 3350 17 Gm Powd.Pack) 17 gm PO DAILY [facility] Last Admin: 06/23/24 09:08 Dose: Not Given Documented By: KEISHA Non-Admin Reason: NPO Pravastatin Sodium (Pravastatin Sodium 20 Mg Tablet) 20 mg PO BEDTIME [facility] Last Admin: 06/22/24 21:15 Dose: 20 mg Documented By: ABDIRIZAK Senna (Sennosides 8.6 Mg Tablet) 17.2 mg PO BEDTIME [facility] Last Admin: 06/22/24 21:15 Dose: 17.2 mg Documented By: ABDIRIZAK Sodium Chloride (0.9 % Sodium Chloride Flush 3 Ml Syringe) 3 ml IVFLUSH QSHIFT [facility] Last Admin: 06/23/24 09:14 Dose: 3 ml Documented By: KEISHA Vitamin D (Cholecalciferol (Vitamin D3) 25 Mcg Tablet) 50 mcg PO DAILY [facility] Last Admin: 06/23/24 09:12 Dose: 50 mcg Documented By: KEISHA Labs 06/22/24 06:52 06/23/24 05:44 Labs: Laboratory Results - last 24 hr 06/22/24 06/23/24 21:02 05:44 MRCP 4/ Purple Top SEE NOTE Anion Gap 9 L Estim Creat Clear Calc 72.9 Estimated GFR > 60 Random Glucose 73 Calcium 8.3 L Total Bilirubin 1.8 H Direct Bilirubin 1.2 H AST 39 H ALT 56 H Alkaline Phosphatase 268 H Total Protein 5.6 L Albumin 3.1 L Urine Color Dark Yellow Urine Appearance Clear Urine pH 6.0 Ur Specific [place] 1.020 Urine Protein Negative Urine Glucose (UA) Negative Urine Ketones Negative Urine Blood Negative Urine Nitrite Negative Ur Leukocyte Esterase Small (1+) H Urine RBC 0-2 Urine WBC 0-5 Ur Squamous Epith Cells 0-2 Urine Bacteria None Seen Hyaline Casts 0-2 MRCP 06/23/23 1. Worsening CBD dilatation with obstruction of the mid CBD. Choledocholithiasis is favored by MRCP. ERCP may be confirmatory and/or therapeutic. 2. Extrinsic mass-effect of the mid CBD is considered less likely in this noncontrast study and not excluded. Stricture also considered. 3. Distention of the gallbladder with known sludge. Please correlate for cholecystitis given mild adjacent fluid. Assessment and Plan (1) Dilated cbd, acquired: Status: Acute Assessment and Plan: d3 for 68yo F with hx PE on apixaban, Parkinson's disease, mood disorder, HFpEF, seizure disorder, hypertension, and previous CVA presenting with upper abdominal burning and nausea, found to have dilated CBD and elevated alkaline phosphatase CBD dilation with obstruction - stone vs stricture vs mass - GI consulted, plan ERCP today GERD - IV PPI hx PE - continue to hold apixaban for ERCP Parkinson's disease - continue amantadine HFpEF - appears euvolemic seizure disorder - divalproex and phenytoin HTN - lisinopril hx CVA - statin mood disorder - fluoxetine, mirtazapine VTE ppx - SCDs, hold apixaban dispo - TBD In my clinical judgment, the patient requires continued inpatient hospitalization for the following reasons: MRCP Total time managing care of this patient today: 35 minutes. Quality Stroke Does the patient have a stroke diagnosis?: No VTE Prior VTE?: No VTE Risk Level:: Medical - moderate - high VTE Device Contraindication: N/A - Device Ordered VTE Drug Contraindication: Treatment Not Indicated
--- NOTE | 2024-06-23 15:10 | P.CONAN_ITS ---
[facility] Active Problems Active Problems: All Active Problems Dilated cbd, acquired (Acute) Elevated alkaline phosphatase level (Acute) Elevated transaminase level (Acute) Abdominal pain (Acute) Vitamin D deficiency (Acute) Fall (Acute) Right shoulder pain (Acute) Cerumen impaction (Acute) Encounter for subsequent annual wellness visit in Medicare patient (Acute) Vertigo (Acute) Elevated liver enzymes (Acute) Bilateral shoulder pain (Acute) Systolic murmur (Acute) Acute bronchitis (Acute) Elevated TSH (Acute) Pain in left bolden (Acute) Somatic dysfunction of left sacroiliac joint (Acute) Encounter for annual wellness visit (AWV) in Medicare patient (Acute) Palpitations (Acute) Hypertension (Acute) Dizziness (Acute) Osteoporosis (Acute) CKD (chronic kidney disease) stage 3, GFR 30-59 ml/min (Acute) Sciatica (Acute) Abnormal EKG (Acute) Tobacco dependence (Acute) Hypertension (Acute) Aortic stenosis (Acute) Physical deconditioning (Acute) Easy bruising (Acute) Coronary artery disease (Acute) Right clavicle fracture (Acute) Constipation (Acute) Anemia (Acute) Closed subcapital fracture of femur (Acute) Closed displaced fracture of right femoral neck with routine healing (Acute) Tremor (Acute) Paraspinal soft tissue mass (Acute) Seizure disorder (Acute) Past Medical History Medical History Fall Dyslipidemia Colonoscopy refused Osteoporosis Hypothyroid HTN (hypertension) Aortic insufficiency Osteopenia CKD (chronic kidney disease) stage 3, GFR 30-59 ml/min Mitral valve disorder Parkinson's disease without dyskinesia Seizure Parkinson's disease Hx of fracture of femur History of alcohol abuse Diabetes History of encephalopathy History of traumatic subdural hematoma Tobacco dependence Atherosclerotic cardiovascular disease Non-rheumatic aortic stenosis Preoperative cardiovascular examination Myocardial infarct History of coronary artery disease Seizure disorder Hypertension Fall Family History Family History Mother No problems noted. Father No problems noted. Family history of problems with anesthesia: No Surgical History Surgical History History of breast biopsy History of tubal ligation History of hip surgery History of Problems with Anesthesia: No Social History Social History Household Members: Other Housing: Other Housing Other:: halfway home Do you presently have visiting nurse or other home services: No Alcohol intake: former Patient Tobacco Use Status: Current everyday Tobacco user Tobacco use type: Cigarette Cigarette Packs Per Day: 1 Cigarettes Per Day: 4 Years Smoked: 40 Smoked in Last 30 Days: Yes Patient Interested in Nicotine Replacement: No Patient Given Instructions on How to Stop Smoking: Yes Date Education Initiated: 06/22/24 Second Hand Smoke Exposure: No Use of substances other than those prescribed or required for medical reasons: No Currently Displaying Signs/Symptoms of Drug Intoxication Withdrawal: No Have you been hit, kicked, punched, or otherwise hurt by someone within the past year? 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 Meds Allergies Allergy/AdvReac Type Severity Reaction Status Date / Time adhesive tape Allergy Unknown hives Unverified 05/29/24 08:33 amlodipine [From Norvasc] Allergy Unknown Swelling Unverified 05/29/24 08:33 od hands/feet azithromycin [AZITHROMYCIN] Allergy Unknown HIVES Verified 01/29/24 01:00 bacitracin [From Cortisporin] Allergy Unknown Eye Unverified 05/29/24 08:33 irritation brompheniramine Allergy Unknown Body Rash Unverified 05/29/24 08:33 [From Dimetapp Cold-Allergy (PE)] calcium [From DHEA] Allergy Unknown Unknown Unverified 05/29/24 08:33 calcium carbonate [From DHEA] Allergy Unknown Unknown Unverified 05/29/24 08:33 cefaclor Allergy Unknown Perineum Unverified 05/29/24 08:33 rash chlorpheniramine Allergy Unknown Body Rash Unverified 05/29/24 08:33 [From Fedahist] clindamycin Allergy Unknown GI Unverified 05/29/24 08:33 upset/pain/vomiting devil's claw Allergy Unknown unsure Unverified 05/29/24 08:33 reaction dexbrompheniramine Allergy Unknown Body Rash Unverified 05/29/24 08:33 [From Drixoral] diphenhydramine Allergy Unknown Body Rash Unverified 05/29/24 08:33 [From Benadryl] doxazosin Allergy Unknown Extreme Unverified 05/29/24 08:33 anxiety erythromycin base Allergy Unknown Perineum Unverified 05/29/24 08:33 rash garlic Allergy Unknown Unknown Unverified 05/29/24 08:33 gentamicin [From Garamycin] Allergy Unknown [eye Unverified 05/29/24 08:33 drops] Eye swelling ginkgo biloba Allergy Unknown piercing Unverified 05/29/24 08:33 pain in head guaifenesin [From Fedahist] Allergy Unknown Body Rash Unverified 05/29/24 08:33 hydralazine Allergy Unknown Swelling Unverified 05/29/24 08:33 of feet/legs hydrochlorothiazide Allergy Unknown Itchy palms Unverified 05/29/24 08:33 hydrocortisone Allergy Unknown Eye Unverified 05/29/24 08:33 [From Cortisporin] irritation Macrolide Antibiotics Allergy Unknown Unknown Verified 02/03/24 17:28 meclizine Allergy Unknown very dry Unverified 05/29/24 08:33 mouth methylsulfonylmethane Allergy Unknown Itchy palms Unverified 05/29/24 08:33 [From MSM] nebivolol [From Bystolic] Allergy Unknown Swelling Unverified 05/29/24 08:33 of feet/ legs neomycin [From Cortisporin] Allergy Unknown Eye Unverified 05/29/24 08:33 irritation nifedipine [From Procardia] Allergy Unknown Swelling Unverified 05/29/24 08:33 of feet and legs nut - unspecified Allergy Unknown mouth sores Unverified 05/29/24 08:33 Peanut Butter Allergy Unknown mouth sores Unverified 05/29/24 08:33 penicillin V Allergy Unknown Body rash Unverified 05/29/24 08:33 Penicillins Allergy Unknown body rash Unverified 05/29/24 08:33 phenylephrine Allergy Unknown Body Rash Unverified 05/29/24 08:33 [From Dimetapp Cold-Allergy (PE)] polymyxin B Allergy Unknown Eye Unverified 05/29/24 08:33 [From Cortisporin] irritation prasterone (DHEA) [From DHEA] Allergy Unknown Unknown Unverified 05/29/24 08:33 propoxyphene [From Darvon] Allergy Unknown Unknown Unverified 05/29/24 08:33 pseudoephedrine Allergy Unknown Body Rash Unverified 05/29/24 08:33 [From Drixoral] shellfish derived Allergy Unknown itchy body Unverified 05/29/24 08:33 Sulfa (Sulfonamide Allergy Unknown Itchy palms Unverified 05/29/24 08:33 Antibiotics) sulfamethoxazole Allergy Unknown itchy palms Unverified 05/29/24 08:33 [From Bactrim] trimethoprim [From Bactrim] Allergy Unknown itchy palms Unverified 05/29/24 08:33 prednisone Allergy Flushing Unverified 05/29/24 08:33 tetracycline Allergy Unknown Unverified 06/21/24 16:36 Carditone Allergy Unknown Swelling Uncoded 05/29/24 08:33 of feet/legs; itchy body Active Medications: Current Medications Acetaminophen (Acetaminophen 325 Mg Tablet) 650 mg PO Q6H PRN PRN Reason: Pain, Mild 1-3,fever,headache Al Hydroxide/Mg Hydroxide (Magnesium Hydrox/Alum Hydrox 30 Ml Oral.Susp) 30 ml PO DAILY PRN PRN Reason: GI Distress Amantadine HCl (Amantadine Hcl 100 Mg Capsule) 100 mg PO DAILY [facility] Last Admin: 06/22/24 10:53 Dose: 100 mg Bisacodyl (Bisacodyl 10 Mg Supp.Rect) 10 mg [place] DAILY PRN PRN Reason: Constipation Calcium Carbonate (Calcium Carbonate 750 Mg Tab.Chew) 750 mg PO Q4H PRN PRN Reason: Heartburn Cyanocobalamin (Cyanocobalamin (Vitamin B-12) 500 Mcg Tablet) 500 mcg PO DAILY [facility] Last Admin: 06/23/24 09:12 Dose: 500 mcg Divalproex Sodium (Divalproex Sodium 250 Mg Tablet.Dr) 750 mg PO BID [facility] Last Admin: 06/23/24 09:12 Dose: 750 mg Docusate Sodium (Docusate Sodium 100 Mg Capsule) 100 mg PO BID [facility] Last Admin: 06/23/24 09:12 Dose: 100 mg Fluoxetine HCl (Fluoxetine Hcl 10 Mg Capsule) 10 mg PO DAILY [facility] Last Admin: 06/23/24 09:13 Dose: 10 mg Fluoxetine HCl (Fluoxetine Hcl 20 Mg Capsule) 40 mg PO DAILY [facility] Last Admin: 06/23/24 09:12 Dose: 40 mg Folic Acid (Folic Acid 1 Mg Tablet) 1 mg PO DAILY [facility] Last Admin: 06/23/24 09:13 Dose: 1 mg Gabapentin (Gabapentin 100 Mg Capsule) 100 mg PO BID [facility] Last Admin: 06/23/24 09:13 Dose: 100 mg Guaifenesin (Guaifenesin 200 Mg/10 Ml 10 Ml Liquid) 10 ml PO Q4H PRN PRN Reason: Cough Guaifenesin (Guaifenesin La 600 Mg Tab.Er.12h) 600 mg PO BID PRN PRN Reason: Cough Lisinopril (Lisinopril 10 Mg Tablet) 10 mg PO DAILY [facility]; Protocol Last Admin: 06/23/24 09:12 Dose: 10 mg Loperamide HCl (Loperamide Hcl 2 Mg Capsule) 2 mg PO Q6H PRN PRN Reason: Loose Stool Magnesium Hydroxide (Milk Of Magnesia 30 Ml Oral.Susp) 30 ml PO DAILY PRN PRN Reason: Constipation Melatonin (Melatonin 3 Mg Tablet) 6 mg PO BEDTIME PRN PRN Reason: Insomnia Mirtazapine (Mirtazapine 15 Mg Tablet) 15 mg PO BEDTIME [facility] Last Admin: 06/22/24 21:15 Dose: 15 mg Nitroglycerin (Nitroglycerin 0.4 Mg Tab.Subl) 0.4 mg SUBLINGUAL Q5M PRN PRN Reason: Chest Pain Ondansetron HCl (Ondansetron Hcl 4 Mg/2 Ml Vial) 4 mg IVPUSH Q8H PRN PRN Reason: Nausea and Vomiting Pantoprazole Sodium (Pantoprazole Sodium 40 Mg/10 Ml Vial) 40 mg IVPUSH DAILY@0630 [facility] Last Admin: 06/23/24 05:52 Dose: 40 mg Phenytoin Sodium (Phenytoin Sodium Extended 100 Mg Capsule) 200 mg PO BID [facility] Last Admin: 06/23/24 09:12 Dose: 200 mg Polyethylene Glycol (Polyethylene Glycol 3350 17 Gm Powd.Pack) 17 gm PO DAILY [facility] Last Admin: 06/23/24 09:08 Dose: Not Given Pravastatin Sodium (Pravastatin Sodium 20 Mg Tablet) 20 mg PO BEDTIME [facility] Last Admin: 06/22/24 21:15 Dose: 20 mg Senna (Sennosides 8.6 Mg Tablet) 17.2 mg PO BEDTIME [facility] Last Admin: 06/22/24 21:15 Dose: 17.2 mg Sodium Chloride (0.9 % Sodium Chloride Flush 3 Ml Syringe) 3 ml IVFLUSH QSHIFT [facility] Last Admin: 06/23/24 09:14 Dose: 3 ml Vitamin D (Cholecalciferol (Vitamin D3) 25 Mcg Tablet) 50 mcg PO DAILY [facility] Last Admin: 06/23/24 09:12 Dose: 50 mcg Home Medications ?Medication ?Instructions ?Recorded ?Confirmed ?Last Taken ?Type divalproex 250 mg tablet,delayed 3 tab PO BID 01/26/21 06/21/24 12/09/22 History release fluoxetine 40 mg capsule 1 cap PO DAILY 01/26/21 06/21/24 12/09/22 History folic acid 1 mg tablet 1 tab PO DAILY 01/26/21 06/21/24 12/09/22 History pravastatin 20 mg tablet 1 tab PO BEDTIME 01/26/21 06/21/24 12/09/22 History nitroglycerin 0.4 mg sublingual 0.4 mg sublingual Q5M PRN Chest 06/03/22 0 06/21/24 Unknown History tablet Pain phenytoin sodium extended 100 mg 2 tab PO BID 06/03/22 06/21/24 12/09/22 History capsule amantadine HCl 100 mg tablet 100 mg PO DAILY 12/09/22 06/21/24 12/09/22 History gabapentin 100 mg capsule 100 mg PO BID 07/28/23 06/21/24 Unknown History sennosides 8.6 mg tablet (senna) 17.2 mg PO BEDTIME 07/28/23 06/21/24 Unknown History bisacodyl 10 mg rectal suppository 10 mg WA DAILY PRN Constipation 01/11/24 06/21/24 Unknown History cholecalciferol (vitamin D3) 50 50 mcg PO DAILY 01/11/24 06/21/24 Unknown History mcg (2,000 unit) capsule cyanocobalamin (vitamin B-12) 500 500 mcg PO DAILY 01/11/24 06/21/24 Unknown History mcg tablet docusate sodium 100 mg capsule 100 mg PO BID 01/11/24 06/21/24 Unknown History (Colace) lisinopril 10 mg tablet 10 mg PO DAILY 01/11/24 06/21/24 Unknown History loperamide 2 mg capsule 2 mg PO Q6H PRN Loose Stool 01/11/24 06/21/24 Unknown History (Anti-Diarrheal (loperamide)) magnesium hydroxide 400 mg/5 mL 30 ml PO DAILY PRN Constipation 01/11/24 06/21/24 Unknown History oral suspension (Milk of Magnesia) acetaminophen 500 mg tablet 1,000 mg PO Q6H PRN Pain (Scale 02/03/24 06/21/24 Unknown History Score 1-3) aluminum-mag hydroxide-simethicone 30 ml PO DAILY PRN GI Distress 02/03/24 06/21/24 Unknown History 200 mg-200 mg-20 mg/5 mL oral susp (Mintox) mirtazapine 15 mg tablet 15 mg PO BEDTIME 02/03/24 06/21/24 Unknown History fluoxetine 10 mg capsule 10 mg PO DAILY 05/25/24 06/21/24 Unknown History guaifenesin 100 mg/5 mL oral liquid 200 mg PO Q4H PRN Cough 06/21/24 06/21/24 Unknown History guaifenesin 600 mg tablet, 600 mg PO BID PRN Cough 06/21/24 06/21/24 Unknown History extended release 12 hr (Mucinex) Exam Height,Weight and Vital Signs: Height 5 ft 4 in Weight 79.1 kg Last Vital Signs Temp 97.9 F 06/23/24 07:30 Pulse 63 06/23/24 07:30 Resp 18 06/23/24 07:30 BP 154/67 H 06/23/24 07:30 Pulse Ox 95 06/23/24 07:30 O2 Del Method Room Air 06/23/24 07:30 Pertinent Lab Results Pertinent Lab Results: Laboratory Tests 06/21/24 06/21/24 06/22/24 16:47 18:23 06:52 WBC 7.1 5.7 RBC 3.86 L 3.60 L Hgb 13.1 12.4 Hct 39.1 36.6 L MCV 101.3 H 101.7 H MCH 33.9 H 34.4 H MCHC 33.5 33.9 RDW 13.8 14.1 Plt Count 248 219 MPV 10.1 10.2 Immature Gran % (Auto) 0.4 0.7 H Neut % (Auto) 75.6 H 63.6 Lymph % (Auto) 13.5 L 22.8 [place] % (Auto) 8.7 8.8 Eos % (Auto) 1.4 3.7 Baso % (Auto) 0.4 0.4 Lymph # (Auto) 1.0 L 1.3 [place] # (Auto) 0.6 0.5 Eos # (Auto) 0.1 0.2 Baso # (Auto) 0.0 0.0 Abs Immat Gran (auto) 0.03 0.04 H Absolute Neuts (auto) 5.4 3.6 Absolute Nucleated RBC 0.000 0.000 Nucleated RBC % (auto) 0.0 0.0 Hold Purple Top Sodium 138 138 Potassium 4.5 4.4 Chloride 108 113 H Carbon Dioxide 23 21 L Anion Gap 12 8 L BUN 19 H 20 H Creatinine 0.73 0.76 Estim Creat Clear Calc 74.0 71.1 Estimated GFR > 60 > 60 Random Glucose 144 H 98 Calcium 8.8 8.2 L D Magnesium 2.0 Total Bilirubin 1.6 H 1.8 H Direct Bilirubin 1.2 H AST 62 H 50 H ALT 94 H 74 H Alkaline Phosphatase 348 H 294 H Troponin I High Sens 14.8 Total Protein 7.0 6.1 L Albumin 3.7 3.3 L Lipase 47 Urine Color Urine Appearance Urine pH Ur Specific [place] Urine Protein Urine Glucose (UA) Urine Ketones Urine Blood Urine Nitrite Ur Leukocyte Esterase Urine RBC Urine WBC Ur Squamous Epith Cells Urine Bacteria Hyaline Casts Influenza Type A (PCR) NEGATIVE Influenza Type B (PCR) NEGATIVE RSV RNA Qual (PCR) NEGATIVE SARS-CoV-2 RNA (RT-PCR) NEGATIVE 06/22/24 06/23/24 21:02 05:44 WBC RBC Hgb Hct MCV MCH MCHC RDW Plt Count MPV Immature Gran % (Auto) Neut % (Auto) Lymph % (Auto) [place] % (Auto) Eos % (Auto) Baso % (Auto) Lymph # (Auto) [place] # (Auto) Eos # (Auto) Baso # (Auto) Abs Immat Gran (auto) Absolute Neuts (auto) Absolute Nucleated RBC Nucleated RBC % (auto) Hold Purple Top SEE NOTE Sodium 140 Potassium 4.4 Chloride 111 H Carbon Dioxide 24 Anion Gap 9 L BUN 18 H Creatinine 0.74 Estim Creat Clear Calc 72.9 Estimated GFR > 60 Random Glucose 73 Calcium 8.3 L Magnesium Total Bilirubin 1.8 H Direct Bilirubin 1.2 H AST 39 H ALT 56 H Alkaline Phosphatase 268 H Troponin I High Sens Total Protein 5.6 L Albumin 3.1 L Lipase Urine Color Dark Yellow Urine Appearance Clear Urine pH 6.0 Ur Specific [place] 1.020 Urine Protein Negative Urine Glucose (UA) Negative Urine Ketones Negative Urine Blood Negative Urine Nitrite Negative Ur Leukocyte Esterase Small (1+) H Urine RBC 0-2 Urine WBC 0-5 Ur Squamous Epith Cells 0-2 Urine Bacteria None Seen Hyaline Casts 0-2 Influenza Type A (PCR) Influenza Type B (PCR) RSV RNA Qual (PCR) SARS-CoV-2 RNA (RT-PCR) Airway Mallampati Class: II TM Dist: >3cm Neck ROM: Full Assessment and Plan Assessment Anesthesia Assessment: Anesthesia Plan Discussed and Chart Reviewed Final Anesthetic Review Family History of Problems with Anesthesia: No History of Problems with Anesthesia: No NPO: Yes ASA Class: III and Emergency Final Preanesthetic Review: No Changes in Pt Med Stat, Meds/Allgs Chart Reviewed, Consent Obtained/Reviewed and Anes Risks/Benef Reviewed Patient Risk: Intermediate Procedure Risk: Low Anesthetic Plan Anesthetic Plan: GA Disposition: Standard PACU
--- NOTE | 2024-06-23 16:19 | MHC.SHP ---
Pre-Procedural Eval Section A - 24 Hr Update-Section A only Date of Service: 06/23/24 The patient is an INPATIENT: Yes The patient has been examined within 24 hours of the surgical procedure. The History & Physical has been completed within 30 days and I have reviewed it.: Yes Section B - Complete if H&P > 30 days Chief Complaint: epigastric pain Allergies: Allergies Allergy/AdvReac Type Severity Reaction Status Date / Time adhesive tape Allergy Unknown hives Unverified 05/29/24 08:33 amlodipine [From Norvasc] Allergy Unknown Swelling Unverified 05/29/24 08:33 od hands/feet azithromycin [AZITHROMYCIN] Allergy Unknown HIVES Verified 01/29/24 01:00 bacitracin [From Cortisporin] Allergy Unknown Eye Unverified 05/29/24 08:33 irritation brompheniramine Allergy Unknown Body Rash Unverified 05/29/24 08:33 [From Dimetapp Cold-Allergy (PE)] calcium [From DHEA] Allergy Unknown Unknown Unverified 05/29/24 08:33 calcium carbonate [From DHEA] Allergy Unknown Unknown Unverified 05/29/24 08:33 cefaclor Allergy Unknown Perineum Unverified 05/29/24 08:33 rash chlorpheniramine Allergy Unknown Body Rash Unverified 05/29/24 08:33 [From Fedahist] clindamycin Allergy Unknown GI Unverified 05/29/24 08:33 upset/pain/vomiting devil's claw Allergy Unknown unsure Unverified 05/29/24 08:33 reaction dexbrompheniramine Allergy Unknown Body Rash Unverified 05/29/24 08:33 [From Drixoral] diphenhydramine Allergy Unknown Body Rash Unverified 05/29/24 08:33 [From Benadryl] doxazosin Allergy Unknown Extreme Unverified 05/29/24 08:33 anxiety erythromycin base Allergy Unknown Perineum Unverified 05/29/24 08:33 rash garlic Allergy Unknown Unknown Unverified 05/29/24 08:33 gentamicin [From Garamycin] Allergy Unknown [eye Unverified 05/29/24 08:33 drops] Eye swelling ginkgo biloba Allergy Unknown piercing Unverified 05/29/24 08:33 pain in head guaifenesin [From Fedahist] Allergy Unknown Body Rash Unverified 05/29/24 08:33 hydralazine Allergy Unknown Swelling Unverified 05/29/24 08:33 of feet/legs hydrochlorothiazide Allergy Unknown Itchy palms Unverified 05/29/24 08:33 hydrocortisone Allergy Unknown Eye Unverified 05/29/24 08:33 [From Cortisporin] irritation Macrolide Antibiotics Allergy Unknown Unknown Verified 02/03/24 17:28 meclizine Allergy Unknown very dry Unverified 05/29/24 08:33 mouth methylsulfonylmethane Allergy Unknown Itchy palms Unverified 05/29/24 08:33 [From MSM] nebivolol [From Bystolic] Allergy Unknown Swelling Unverified 05/29/24 08:33 of feet/ legs neomycin [From Cortisporin] Allergy Unknown Eye Unverified 05/29/24 08:33 irritation nifedipine [From Procardia] Allergy Unknown Swelling Unverified 05/29/24 08:33 of feet and legs nut - unspecified Allergy Unknown mouth sores Unverified 05/29/24 08:33 Peanut Butter Allergy Unknown mouth sores Unverified 05/29/24 08:33 penicillin V Allergy Unknown Body rash Unverified 05/29/24 08:33 Penicillins Allergy Unknown body rash Unverified 05/29/24 08:33 phenylephrine Allergy Unknown Body Rash Unverified 05/29/24 08:33 [From Dimetapp Cold-Allergy (PE)] polymyxin B Allergy Unknown Eye Unverified 05/29/24 08:33 [From Cortisporin] irritation prasterone (DHEA) [From DHEA] Allergy Unknown Unknown Unverified 05/29/24 08:33 propoxyphene [From Darvon] Allergy Unknown Unknown Unverified 05/29/24 08:33 pseudoephedrine Allergy Unknown Body Rash Unverified 05/29/24 08:33 [From Drixoral] shellfish derived Allergy Unknown itchy body Unverified 05/29/24 08:33 Sulfa (Sulfonamide Allergy Unknown Itchy palms Unverified 05/29/24 08:33 Antibiotics) sulfamethoxazole Allergy Unknown itchy palms Unverified 05/29/24 08:33 [From Bactrim] trimethoprim [From Bactrim] Allergy Unknown itchy palms Unverified 05/29/24 08:33 prednisone Allergy Flushing Unverified 05/29/24 08:33 tetracycline Allergy Unknown Unverified 06/21/24 16:36 Carditone Allergy Unknown Swelling Uncoded 05/29/24 08:33 of feet/legs; itchy body Plan Diagnosis/Plan: Unchanged I have reviewed the history and physical and performed a pertinent physical examination on my patient. No changes have occurred unless specified. Time Spent With Patient Time: Total time managing care of this patient today ____ minutes.
--- NOTE | 2024-06-23 18:17 | W.PM.OPN ---
Operative Note Operative Note Date of Service: 06/23/24 Narrative: Description:?Endoscopic retrograde cholangiopancreatography (ERCP) PROCEDURE:?Endoscopic retrograde cholangiopancreatography with louann precut and PD cannulation INDICATION FOR THE PROCEDURE:?Patient with a history of abn LFT and concern for CBD lesion MEDICATIONS:?General anesthesia. The risks of the procedure were made aware to the patient and consisted of medication reaction, bleeding, perforation, aspiration, and post ERCP pancreatitis. DESCRIPTION OF PROCEDURE:?After informed consent and appropriate sedation, A regular upper endoscope was passed. Stomach anatomy seemed altered with pylorus pushed to one side. The duodenoscope was then passed and with some difficulty passed into the second part of the duodenum, and was mostly in the long position due to unstable scope position. The tome was angled and a dream wire was passed but kept going into the PD. A louann precut was performed but still CBD could not be cannulated. A jagwire was used and it was the same issue. I attempted to place a 4 Fr PD stent but this fell out during the procedure. After a few more attempts at wire guided cannulation of the CBD the procedure was aborted. 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 Failed ERCP, unable to cannulate the CBD. RECOMMENDATIONS: 1. clears today and advance diet tomorrow 2. consult IR for percutaneous drain and stenting and possible spyglass 3. can consider repeat attempt at ERCP down the road if needed perhaps using redezvous procedure 4. consider reimaging pancreas with MRI with IV contrast
[2024-06-23] MEDS: Pravastatin Sodium 20 MG TABLET PO (19:51)
[2024-06-23] MEDS: Sennosides 8.6 MG TABLET 17.2 MG PO (19:51)
[2024-06-23] MEDS: Mirtazapine 15 MG TABLET PO (19:51)
[2024-06-24] MEDS: Pantoprazole Sodium 40 MG/10 ML VIAL IVPUSH (05:54)
[2024-06-24 07:08] LABS: Alanine Aminotransferase 46 U/L (0-31); Albumin Level 3.1 g/dL (3.5-5.0); Alkaline Phosphatase 255 U/L (39-117); Anion Gap 11 (12-20); Aspartate Amino Transferase 34 U/L (5-31); Blood Urea Nitrogen 22 mg/dL (9-16); Calcium 8.4 mg/dL (8.4-10.2); Carbon Dioxide 24 mmol/L (22-29); Chloride 110 mmol/L (96-108); Creatinine Clr Calc Pharmacy 58.7; Estimated Glomerular Filt Rate > 60; Glucose Random 107 mg/dL (60-115); Potassium 5.2 mmol/L (3.3-5.1); Sodium 140 mmol/L (135-145); Total Protein 5.7 g/dL (6.5-8.0)
[2024-06-24 07:10] LABS: Hematocrit 36.5 % (37.0-47.0); Hemoglobin 12.5 g/dl (12.0-16.0); Mean Corpuscular HGB Conc 34.2 g/dl (31.0-35.0); Mean Corpuscular Hemoglobin 34.1 pg (27.0-33.0); Mean Corpuscular Volume 99.5 fL (80.0-98.0); Mean Platelet Volume 10.3 fL (9.4-12.3); Platelet Count 237 X10*3/uL (160-400); Red Blood Count 3.67 X10*6/uL (4.20-5.50); Red Cell Distribution Width 13.9 % (11.0-16.0); White Blood Count 6.9 X10*3/uL (4.8-10.8)
[2024-06-24 07:43] LABS: Folate 15.2 ng/mL (> or = 4.0); Vitamin B12 > 2000 pg/mL (200-900)
[2024-06-24 07:49] VITALS: BP 144/67; PULSE 65; RESP 18; TEMP 36.1; O2SAT 96
[2024-06-24] MEDS: polyethylene glycoL 3350 17 GM POWD.PACK PO (08:47)
[2024-06-24] MEDS: Sodium Zirconium Cyclosilicate 5 GM POWD.PACK PO (08:47)
[2024-06-24] MEDS: amantadine HCL 100 MG CAPSULE PO (08:48)
[2024-06-24] MEDS: Divalproex Sodium 250 MG TABLET.DR 750 MG PO ×2 (08:48→20:21)
[2024-06-24] MEDS: Cholecalciferol (Vitamin D3) 25 MCG TABLET 50 MCG PO (08:48)
[2024-06-24] MEDS: FLUoxetine HCl 10 MG CAPSULE PO (08:48)
[2024-06-24] MEDS: FLUoxetine HCl 20 MG CAPSULE 40 MG PO (08:48)
[2024-06-24] MEDS: Phenytoin Sodium Extended 100 MG CAPSULE 200 MG PO ×2 (08:48→20:21)
[2024-06-24] MEDS: Gabapentin 100 MG CAPSULE PO ×2 (08:48→20:22)
[2024-06-24] MEDS: Folic Acid 1 MG TABLET PO (08:49)
[2024-06-24] MEDS: Cyanocobalamin (Vitamin B-12) 500 MCG TABLET PO (08:49)
[2024-06-24] MEDS: lisinopriL 10 MG TABLET PO (08:49)
[2024-06-24] MEDS: Docusate Sodium 100 MG CAPSULE PO ×2 (08:49→20:22)
[2024-06-24] MEDS: 0.9 % Sodium Chloride Flush 3 ML SYRINGE IVFLUSH ×2 (08:50→20:25)
--- NOTE | 2024-06-24 08:59 | PC.NURSE ---
Patient off unit to MRI
[2024-06-24] MEDS: gadobutroL 7.5 ML VIAL IVPUSH (09:23)
--- NOTE | 2024-06-24 10:30 | PC.NURSE ---
Patient back in the room from MRI
--- NOTE | 2024-06-24 10:43 | HO.PM.IMPN ---
Subjective Subjective Date of Service: 06/24/24 Interval History: ERCP could not be done due to altered anatomy pt hungry/thirsty; denies abd pain endorses weight loss but states this is due to bad food at her [facility]; denies anorexia Review of Systems Review of Systems: Yes all other systems are reviewed and are negative Physical Exam Vital Signs: Vital Signs: Last Vital Signs Temp 96.9 F 06/24/24 07:49 Pulse 65 06/24/24 07:49 Resp 18 06/24/24 07:49 BP 144/67 H 06/24/24 07:49 Pulse Ox 96 06/24/24 07:49 O2 Del Method Room Air 06/24/24 07:49 O2 Flow Rate 3 06/23/24 18:35 BMI result Body Mass Index 29.9 Gen: in no acute distress HEENT: sclera anicteric, moist mucus membranes Neck: supple Lungs: clear to auscultation bilaterally Heart: regular rate and rhythm, no murmurs Abd: soft, non-tender, non-distended Ext: no edema Skin: warm/well-perfused Neuro: alert and oriented x3, no focal findings Psych: appropriate affect Objective Data Active Medications Acetaminophen (Acetaminophen 325 Mg Tablet) 650 mg PO Q6H PRN PRN Reason: Pain, Mild 1-3,fever,headache Al Hydroxide/Mg Hydroxide (Magnesium Hydrox/Alum Hydrox 30 Ml Oral.Susp) 30 ml PO DAILY PRN PRN Reason: GI Distress Amantadine HCl (Amantadine Hcl 100 Mg Capsule) 100 mg PO DAILY [facility] Last Admin: 06/24/24 08:48 Dose: 100 mg Documented By: SRINATH Bisacodyl (Bisacodyl 10 Mg Supp.Rect) 10 mg [place] DAILY PRN PRN Reason: Constipation Calcium Carbonate (Calcium Carbonate 750 Mg Tab.Chew) 750 mg PO Q4H PRN PRN Reason: Heartburn Cyanocobalamin (Cyanocobalamin (Vitamin B-12) 500 Mcg Tablet) 500 mcg PO DAILY [facility] Last Admin: 06/24/24 08:49 Dose: 500 mcg Documented By: SRINATH Divalproex Sodium (Divalproex Sodium 250 Mg Tablet.Dr) 750 mg PO BID [facility] Last Admin: 06/24/24 08:48 Dose: 750 mg Documented By: SRINATH Docusate Sodium (Docusate Sodium 100 Mg Capsule) 100 mg PO BID [facility] Last Admin: 06/24/24 08:49 Dose: 100 mg Documented By: SRINATH Fluoxetine HCl (Fluoxetine Hcl 10 Mg Capsule) 10 mg PO DAILY [facility] Last Admin: 06/24/24 08:48 Dose: 10 mg Documented By: SRINATH Fluoxetine HCl (Fluoxetine Hcl 20 Mg Capsule) 40 mg PO DAILY [facility] Last Admin: 06/24/24 08:48 Dose: 40 mg Documented By: SRINATH Folic Acid (Folic Acid 1 Mg Tablet) 1 mg PO DAILY [facility] Last Admin: 06/24/24 08:49 Dose: 1 mg Documented By: SRINATH Gabapentin (Gabapentin 100 Mg Capsule) 100 mg PO BID [facility] Last Admin: 06/24/24 08:48 Dose: 100 mg Documented By: SRINATH Guaifenesin (Guaifenesin 200 Mg/10 Ml 10 Ml Liquid) 10 ml PO Q4H PRN PRN Reason: Cough Guaifenesin (Guaifenesin La 600 Mg Tab.Er.12h) 600 mg PO BID PRN PRN Reason: Cough Lisinopril (Lisinopril 10 Mg Tablet) 10 mg PO DAILY [facility]; Protocol Last Admin: 06/24/24 08:49 Dose: 10 mg Documented By: SRINATH Loperamide HCl (Loperamide Hcl 2 Mg Capsule) 2 mg PO Q6H PRN PRN Reason: Loose Stool Magnesium Hydroxide (Milk Of Magnesia 30 Ml Oral.Susp) 30 ml PO DAILY PRN PRN Reason: Constipation Melatonin (Melatonin 3 Mg Tablet) 6 mg PO BEDTIME PRN PRN Reason: Insomnia Mirtazapine (Mirtazapine 15 Mg Tablet) 15 mg PO BEDTIME [facility] Last Admin: 06/23/24 19:51 Dose: 15 mg Documented By: AIDE Naloxone HCl (Naloxone Hcl 0.4 Mg/Ml Vial) 0.04 mg IVPUSH Q5M PRN PRN Reason: Excessive sedation or RR < 8 Nitroglycerin (Nitroglycerin 0.4 Mg Tab.Subl) 0.4 mg SUBLINGUAL Q5M PRN PRN Reason: Chest Pain Ondansetron HCl (Ondansetron Hcl 4 Mg/2 Ml Vial) 4 mg IVPUSH Q8H PRN PRN Reason: Nausea and Vomiting Pantoprazole Sodium (Pantoprazole Sodium 40 Mg/10 Ml Vial) 40 mg IVPUSH DAILY@0630 [facility] Last Admin: 06/24/24 05:54 Dose: 40 mg Documented By: KIMBERLY Phenytoin Sodium (Phenytoin Sodium Extended 100 Mg Capsule) 200 mg PO BID [facility] Last Admin: 06/24/24 08:48 Dose: 200 mg Documented By: SRINATH Polyethylene Glycol (Polyethylene Glycol 3350 17 Gm Powd.Pack) 17 gm PO DAILY [facility] Last Admin: 06/24/24 08:47 Dose: 17 gm Documented By: SRINATH Pravastatin Sodium (Pravastatin Sodium 20 Mg Tablet) 20 mg PO BEDTIME [facility] Last Admin: 06/23/24 19:51 Dose: 20 mg Documented By: AIDE Senna (Sennosides 8.6 Mg Tablet) 17.2 mg PO BEDTIME [facility] Last Admin: 06/23/24 19:51 Dose: 17.2 mg Documented By: AIDE Sodium Chloride (0.9 % Sodium Chloride Flush 3 Ml Syringe) 3 ml IVFLUSH QSHIFT [facility] Last Admin: 06/24/24 08:50 Dose: 3 ml Documented By: SRINATH Vitamin D (Cholecalciferol (Vitamin D3) 25 Mcg Tablet) 50 mcg PO DAILY [facility] Last Admin: 06/24/24 08:48 Dose: 50 mcg Documented By: SRINATH Labs 06/24/24 06:31 06/24/24 06:31 Labs: Laboratory Results - last 24 hr 06/24/24 06:31 MCV 99.5 H MCH 34.1 H MCHC 34.2 RDW 13.9 Plt Count 237 MPV 10.3 Absolute Nucleated RBC 0.000 Nucleated RBC % (auto) 0.0 Anion Gap 11 L Estim Creat Clear Calc 58.7 Estimated GFR > 60 Random Glucose 107 Calcium 8.4 Total Bilirubin 2.0 H AST 34 H ALT 46 H Alkaline Phosphatase 255 H Total Protein 5.7 L Albumin 3.1 L Vitamin B12 > 2000 H Folate 15.2 Microbiology Microbiology Results: Microbiology 06/22/24 Unknown Urine Culture - Preliminary Urine clean catch - Clean Catch Midstream Culture too young to evaluate. Assessment and Plan (1) Dilated cbd, acquired: Status: Acute Assessment and Plan: d4 for 68yo F with hx PE on apixaban, Parkinson's disease, mood disorder, HFpEF, seizure disorder, hypertension, and previous CVA presenting with upper abdominal burning and nausea, found to have dilated CBD and elevated alkaline phosphatase CBD dilation with obstruction - concern for malignancy with altered anatomy on failed ERCP 06/23: Stomach anatomy seemed altered with pylorus pushed to one side. The duodenoscope was then passed and with some difficulty passed into the second part of the duodenum, and was mostly in the long position due to unstable scope position. The tome was angled and a dream wire was passed but kept going into the PD. A louann precut was performed but still CBD could not be cannulated. A jagwire was used and it was the same issue. I attempted to place a 4 Fr PD stent but this fell out during the procedure. After a few more attempts at wire guided cannulation of the CBD the procedure was aborted. - will glve clears today and advance as tolerated - MRI with contrast pancreas protocol as per GI - discuss with IR re: percutaneous drain and stenting tomorrow - will check CA 19-9, CEA GERD - IV PPI hx PE [Jan 2024] - continue to hold apixaban for now given possible drain/stenting tomorrow Parkinson's disease - continue amantadine HFpEF - appears euvolemic seizure disorder - divalproex and phenytoin HTN - lisinopril hx CVA - statin mood disorder - fluoxetine, mirtazapine VTE ppx - SCDs, hold apixaban dispo - [facility]pc eventually In my clinical judgment, the patient requires continued inpatient hospitalization for the following reasons: CBD blockage; stenting Total time managing care of this patient today: 35 minutes. Quality Stroke Does the patient have a stroke diagnosis?: No VTE Prior VTE?: No VTE Risk Level:: Medical - moderate - high VTE Device Contraindication: N/A - Device Ordered VTE Drug Contraindication: Treatment Not Indicated
[2024-06-24 15:13] VITALS: BP 119/62; PULSE 70; RESP 18; TEMP 36.8; O2SAT 97
[2024-06-24] MEDS: Sennosides 8.6 MG TABLET 17.2 MG PO (20:21)
[2024-06-24] MEDS: Pravastatin Sodium 20 MG TABLET PO (20:22)
[2024-06-24] MEDS: Mirtazapine 15 MG TABLET PO (20:22)
[2024-06-25] VITALS: BP 170/74; PULSE 76; RESP 18; TEMP 37.2; O2SAT 96
[2024-06-25] MEDS: Pantoprazole Sodium 40 MG/10 ML VIAL IVPUSH (05:46)
[2024-06-25 06:17] LABS: INTERNATIONAL NORM RATIO 1.3 (0.9-1.1); Prothrombin Time 14.8 SEC (10.9-12.4)
[2024-06-25 06:53] LABS: Alanine Aminotransferase 41 U/L (0-31); Albumin Level 3.1 g/dL (3.5-5.0); Alkaline Phosphatase 250 U/L (39-117); Anion Gap 9 (12-20); Aspartate Amino Transferase 37 U/L (5-31); Bilirubin Total 2.2 mg/dL (0.0-1.0); Blood Urea Nitrogen 20 mg/dL (9-16); Calcium 8.2 mg/dL (8.4-10.2); Carbon Dioxide 25 mmol/L (22-29); Chloride 110 mmol/L (96-108); Creatinine Clr Calc Pharmacy 68.3; Estimated Glomerular Filt Rate > 60; Glucose Random 110 mg/dL (60-115); Potassium 4.2 mmol/L (3.3-5.1); Sodium 140 mmol/L (135-145); Total Protein 5.8 g/dL (6.5-8.0)
[2024-06-25 07:01] VITALS: BP 141/78; PULSE 77; RESP 16; TEMP 36.3; O2SAT 94
[2024-06-25 08:58] LABS: Adenovirus F 40/41 Not Detected (Not Detect.); Astrovirus Not Detected (Not Detect.); Campylobacter Not Detected (Not Detect.); Cryptosporidium Not Detected (Not Detect.); Cyclospora cayetanensis Not Detected (Not Detect.); E. coli EAEC Not Detected (Not Detect.); E. coli EPEC Not Detected (Not Detect.); E. coli ETEC Not Detected (Not Detect.); E. coli STEC Not Detected (Not Detect.); Entamoeba histolytica Not Detected (Not Detect.); Giardia lamblia Not Detected (Not Detect.); Norovirus GI/GII Not Detected (Not Detect.); Plesiomonas shigelloides Not Detected (Not Detect.); Rotavirus A Not Detected (Not Detect.); Salmonella Not Detected (Not Detect.); Sapovirus Not Detected (Not Detect.); Shigella sp./EIEC Not Detected (Not Detect.); Vibrio Not Detected (Not Detect.); Vibrio Cholerae Not Detected (Not Detect.); Yersinia enterocolitica Not Detected (Not Detect.)
[2024-06-25] MEDS: Docusate Sodium 100 MG CAPSULE PO ×2 (09:13→20:23)
[2024-06-25] MEDS: amantadine HCL 100 MG CAPSULE PO (09:13)
[2024-06-25] MEDS: lisinopriL 10 MG TABLET PO (09:13)
[2024-06-25] MEDS: FLUoxetine HCl 10 MG CAPSULE PO (09:13)
[2024-06-25] MEDS: Folic Acid 1 MG TABLET PO (09:13)
[2024-06-25] MEDS: Cyanocobalamin (Vitamin B-12) 500 MCG TABLET PO (09:13)
[2024-06-25] MEDS: Phenytoin Sodium Extended 100 MG CAPSULE 200 MG PO ×2 (09:14→20:24)
[2024-06-25] MEDS: Divalproex Sodium 250 MG TABLET.DR 750 MG PO ×2 (09:14→20:23)
[2024-06-25] MEDS: Cholecalciferol (Vitamin D3) 25 MCG TABLET 50 MCG PO (09:14)
[2024-06-25] MEDS: Gabapentin 100 MG CAPSULE PO ×2 (09:14→20:23)
[2024-06-25] MEDS: FLUoxetine HCl 20 MG CAPSULE 40 MG PO (09:14)
[2024-06-25] MEDS: polyethylene glycoL 3350 17 GM POWD.PACK PO (09:15)
[2024-06-25] MEDS: 0.9 % Sodium Chloride Flush 3 ML SYRINGE IVFLUSH ×3 (09:15→20:27)
--- NOTE | 2024-06-25 10:10 | HO.POSTANES ---
Post Anesthesia Evaluation Post Anesthesia Evaluation Date of Service: 06/25/24 Vital Signs: Vital Signs Temp Pulse Resp BP Pulse Ox O2 Del Method 06/25/24 07:01 97.3 F 77 16 141/78 H 94 Room Air 06/25/24 00:00 98.9 F 76 18 170/74 H 96 Room Air Anesthesia: General Endotracheal-GETA Mental Status: Awake Pain Control: Satisfactory Nausea/Vomiting: None Hydration: Adequate Anesthesia-Related Issues: No Anes. Related Issues
--- NOTE | 2024-06-25 13:55 | P.PNIM_ITS ---
Subjective Subjective Date of Service: 06/25/24 Interval History: no abd pain no N/V Review of Systems Review of Systems: Yes all other systems are reviewed and are negative Physical Exam 2 Vital Signs: Vital Signs: Last Vital Signs Temp 97.3 F 06/25/24 07:01 Pulse 77 06/25/24 07:01 Resp 16 06/25/24 07:01 BP 141/78 H 06/25/24 07:01 Pulse Ox 94 06/25/24 07:01 O2 Del Method Room Air 06/25/24 07:01 O2 Flow Rate 3 06/23/24 18:35 BMI result Body Mass Index 29.9 Gen: in no acute distress HEENT: sclera anicteric, moist mucus membranes Neck: supple Lungs: clear to auscultation bilaterally Heart: regular rate and rhythm, no murmurs Abd: soft, non-tender, non-distended Ext: no edema Skin: warm/well-perfused Neuro: alert and oriented x3, no focal findings Psych: appropriate affect Objective Data Active Medications Acetaminophen (Acetaminophen 325 Mg Tablet) 650 mg PO Q6H PRN PRN Reason: Pain, Mild 1-3,fever,headache Al Hydroxide/Mg Hydroxide (Magnesium Hydrox/Alum Hydrox 30 Ml Oral.Susp) 30 ml PO DAILY PRN PRN Reason: GI Distress Amantadine HCl (Amantadine Hcl 100 Mg Capsule) 100 mg PO DAILY [facility] Last Admin: 06/25/24 09:13 Dose: 100 mg Documented By: RYAN Bisacodyl (Bisacodyl 10 Mg Supp.Rect) 10 mg [place] DAILY PRN PRN Reason: Constipation Calcium Carbonate (Calcium Carbonate 750 Mg Tab.Chew) 750 mg PO Q4H PRN PRN Reason: Heartburn Cyanocobalamin (Cyanocobalamin (Vitamin B-12) 500 Mcg Tablet) 500 mcg PO DAILY [facility] Last Admin: 06/25/24 09:13 Dose: 500 mcg Documented By: RYAN Divalproex Sodium (Divalproex Sodium 250 Mg Tablet.) 750 mg PO BID [facility] Last Admin: 06/25/24 09:14 Dose: 750 mg Documented By: RYAN Docusate Sodium (Docusate Sodium 100 Mg Capsule) 100 mg PO BID [facility] Last Admin: 06/25/24 09:13 Dose: 100 mg Documented By: RYAN Fluoxetine HCl (Fluoxetine Hcl 10 Mg Capsule) 10 mg PO DAILY [facility] Last Admin: 06/25/24 09:13 Dose: 10 mg Documented By: RYAN Fluoxetine HCl (Fluoxetine Hcl 20 Mg Capsule) 40 mg PO DAILY [facility] Last Admin: 06/25/24 09:14 Dose: 40 mg Documented By: RYAN Folic Acid (Folic Acid 1 Mg Tablet) 1 mg PO DAILY [facility] Last Admin: 06/25/24 09:13 Dose: 1 mg Documented By: RYAN Gabapentin (Gabapentin 100 Mg Capsule) 100 mg PO BID [facility] Last Admin: 06/25/24 09:14 Dose: 100 mg Documented By: RYAN Guaifenesin (Guaifenesin 200 Mg/10 Ml 10 Ml Liquid) 10 ml PO Q4H PRN PRN Reason: Cough Guaifenesin (Guaifenesin La 600 Mg Tab.Er.12h) 600 mg PO BID PRN PRN Reason: Cough Lisinopril (Lisinopril 10 Mg Tablet) 10 mg PO DAILY [facility]; Protocol Last Admin: 06/25/24 09:13 Dose: 10 mg Documented By: RYAN Loperamide HCl (Loperamide Hcl 2 Mg Capsule) 2 mg PO Q6H PRN PRN Reason: Loose Stool Magnesium Hydroxide (Milk Of Magnesia 30 Ml Oral.Susp) 30 ml PO DAILY PRN PRN Reason: Constipation Melatonin (Melatonin 3 Mg Tablet) 6 mg PO BEDTIME PRN PRN Reason: Insomnia Mirtazapine (Mirtazapine 15 Mg Tablet) 15 mg PO BEDTIME [facility] Last Admin: 06/24/24 20:22 Dose: 15 mg Documented By: DAMARIS Naloxone HCl (Naloxone Hcl 0.4 Mg/Ml Vial) 0.04 mg IVPUSH Q5M PRN PRN Reason: Excessive sedation or RR < 8 Nitroglycerin (Nitroglycerin 0.4 Mg Tab.Subl) 0.4 mg SUBLINGUAL Q5M PRN PRN Reason: Chest Pain Ondansetron HCl (Ondansetron Hcl 4 Mg/2 Ml Vial) 4 mg IVPUSH Q8H PRN PRN Reason: Nausea and Vomiting Phenytoin Sodium (Phenytoin Sodium Extended 100 Mg Capsule) 200 mg PO BID [facility] Last Admin: 06/25/24 09:14 Dose: 200 mg Documented By: RYAN Polyethylene Glycol (Polyethylene Glycol 3350 17 Gm Powd.Pack) 17 gm PO DAILY [facility] Last Admin: 06/25/24 09:15 Dose: 17 gm Documented By: RYAN Pravastatin Sodium (Pravastatin Sodium 20 Mg Tablet) 20 mg PO BEDTIME [facility] Last Admin: 06/24/24 20:22 Dose: 20 mg Documented By: DAMARIS Senna (Sennosides 8.6 Mg Tablet) 17.2 mg PO BEDTIME [facility] Last Admin: 06/24/24 20:21 Dose: 17.2 mg Documented By: DAMARIS Sodium Chloride (0.9 % Sodium Chloride Flush 3 Ml Syringe) 3 ml IVFLUSH QSHIFT [facility] Last Admin: 06/25/24 09:15 Dose: 3 ml Documented By: RYAN Vitamin D (Cholecalciferol (Vitamin D3) 25 Mcg Tablet) 50 mcg PO DAILY [facility] Last Admin: 06/25/24 09:14 Dose: 50 mcg Documented By: RYAN Labs 06/24/24 06:31 06/25/24 05:57 Labs: Laboratory Results - last 24 hr 06/24/24 06/25/24 Unknown 05:57 PT 14.8 H INR 1.3 H Anion Gap 9 L Estim Creat Clear Calc 68.3 Estimated GFR > 60 Random Glucose 110 Calcium 8.2 L Total Bilirubin 2.2 H AST 37 H ALT 41 H Alkaline Phosphatase 250 H Total Protein 5.8 L Albumin 3.1 L Carcinoembryonic Ag 4.00 Stl C. cayetanensis PCR Not Detected Stool Rotavirus A PCR Not Detected Stl Adenov F 40/41 PCR Not Detected Stool Astrovirus (PCR) Not Detected Stool Campylobacter PCR Not Detected Stool Cryptosporidium PCR Not Detected Stl Sh Tox Pr E STEC PCR Not Detected Stool E coli O157 PCR Not applicable Stl Enterotoxigenic E PCR Not Detected Stool EPEC (PCR) Not Detected Stool EAEC (PCR) Not Detected Stl E. histolytica PCR Not Detected Stool Giardia Lamblia PCR Not Detected Stl P. shigelloides PCR Not Detected Stool Salmonella PCR Not Detected Stool Sapovirus (PCR) Not Detected Stl Shigella/EIEC PCR Not Detected St Y.enterocolitica PCR Not Detected Stool Vibrio (PCR) Not Detected Stl Vibrio cholerae PCR Not Detected Stl Norovirus GI/GII PCR Not Detected MRI A/P + contrast 4/6 1. Complete or near-complete narrowing/stricture of the common bile duct approximately 4 cm proximal to the ampulla without definite choledocholithiasis. Recommend further evaluation with repeat ERCP, and endoscopic ultrasound if there is a continued concern for pancreatic mass. This results in intrahepatic and extrahepatic biliary ductal dilation and abnormal distention of the gallbladder. 2. Trace bilateral pleural effusions and left greater than right lower lobe subsegmental atelectasis. 3. Ascites. 4. Chronic and incidental findings as above. Microbiology Microbiology Results: Microbiology 06/22/24 Unknown Urine Culture - Final Urine clean catch - Clean Catch Midstream Assessment and Plan (1) Dilated cbd, acquired: Status: Acute Assessment and Plan: d5 for 68yo F with hx PE on apixaban, Parkinson's disease, mood disorder, HFpEF, seizure disorder, hypertension, and previous CVA presenting with upper abdominal burning and nausea, found to have dilated CBD and elevated alkaline phosphatase CBD stricture/near-complete obstruction - concern for malignancy with altered anatomy on failed ERCP 06/23: Stomach anatomy seemed altered with pylorus pushed to one side. The duodenoscope was then passed and with some difficulty passed into the second part of the duodenum, and was mostly in the long position due to unstable scope position. The tome was angled and a dream wire was passed but kept going into the PD. A louann precut was performed but still CBD could not be cannulated. A jagwire was used and it was the same issue. I attempted to place a 4 Fr PD stent but this fell out during the procedure. After a few more attempts at wire guided cannulation of the CBD the procedure was aborted. - discussed with GI and IR; plan PTC tomorrow then pt to return as outpt for Spyglass [cholangioscope] biopsy of CBD lesion through PTC - CA 19.9 pending GERD - IV PPI hx PE [Jan 2024] - continue to hold apixaban for now given PTC tomorrow Parkinson's disease - continue amantadine HFpEF - appears euvolemic seizure disorder - divalproex and phenytoin HTN - lisinopril hx CVA - statin mood disorder - fluoxetine, mirtazapine VTE ppx - SCDs, hold apixaban dispo - [facility] eventually In my clinical judgment, the patient requires continued inpatient hospitalization for the following reasons: CBD blockage; stenting I updated the pt's brother Milton by phone. Total time managing care of this patient today: 50 minutes. Quality Stroke Does the patient have a stroke diagnosis?: No VTE Prior VTE?: No VTE Risk Level:: Medical - moderate - high VTE Device Contraindication: N/A - Device Ordered VTE Drug Contraindication: Treatment Not Indicated
--- NOTE | 2024-06-25 14:15 | MHC.CM.PN ---
EMR REVIEWED AND PER MD ROUNDS, PT IS NOT MEDICALLY CLEARED FOR DC BACK TO [facility] (PT WILL HAVE PCT 06/26) CM WILL CONTINUE TO FOLLOW FOR ANY CHANGE TO DC PLAN/NEEDS.
[2024-06-25 15:16] VITALS: BP 143/65; PULSE 78; RESP 16; TEMP 36.4; O2SAT 96
[2024-06-25] MEDS: Sennosides 8.6 MG TABLET 17.2 MG PO (20:22)
[2024-06-25] MEDS: Pravastatin Sodium 20 MG TABLET PO (20:23)
[2024-06-25] MEDS: Mirtazapine 15 MG TABLET PO (20:23)
[2024-06-25 23:42] VITALS: BP 162/78; PULSE 80; RESP 18; TEMP 37; O2SAT 96
[2024-06-26] VITALS (18 sets, daily range): BP systolic 142–202; BP diastolic 70–97; PULSE 76–89; RESP 13–18; TEMP 36.1–37; O2SAT 92–999
[2024-06-26 06:40] LABS: Alanine Aminotransferase 51 U/L (0-31); Albumin Level 2.9 g/dL (3.5-5.0); Alkaline Phosphatase 349 U/L (39-117); Aspartate Amino Transferase 56 U/L (5-31); Bilirubin Direct 1.2 mg/dL (0.0-0.5); Bilirubin Total 1.7 mg/dL (0.0-1.0); Total Protein 5.6 g/dL (6.5-8.0)
[2024-06-26] MEDS: lisinopriL 10 MG TABLET PO (08:24)
[2024-06-26] MEDS: FLUoxetine HCl 10 MG CAPSULE PO (08:24)
[2024-06-26] MEDS: Divalproex Sodium 250 MG TABLET.DR 750 MG PO ×2 (08:24→20:21)
[2024-06-26] MEDS: amantadine HCL 100 MG CAPSULE PO (08:24)
[2024-06-26] MEDS: Phenytoin Sodium Extended 100 MG CAPSULE 200 MG PO ×2 (08:25→20:22)
[2024-06-26] MEDS: Gabapentin 100 MG CAPSULE PO ×2 (08:25→20:22)
[2024-06-26] MEDS: Folic Acid 1 MG TABLET PO (08:25)
[2024-06-26] MEDS: Cyanocobalamin (Vitamin B-12) 500 MCG TABLET PO (08:25)
[2024-06-26] MEDS: Docusate Sodium 100 MG CAPSULE PO ×2 (08:25→20:21)
[2024-06-26] MEDS: FLUoxetine HCl 20 MG CAPSULE 40 MG PO (08:25)
[2024-06-26] MEDS: Cholecalciferol (Vitamin D3) 25 MCG TABLET 50 MCG PO (08:25)
[2024-06-26] MEDS: 0.9 % Sodium Chloride Flush 3 ML SYRINGE IVFLUSH ×3 (08:31→20:24)
[2024-06-26] MEDS: fentaNYL citrate/PF 100 MCG/2 ML VIAL 25 MCG IVPUSH ×2 (11:10→11:45)
[2024-06-26] MEDS: Midazolam HCl 2 MG/2 ML VIAL 1 MG IVPUSH (11:10)
[2024-06-26] MEDS: oxyCODONE HCl Immed Release 5 MG TABLET PO (14:28)
--- NOTE | 2024-06-26 15:00 | HO.PM.IMPN ---
Subjective Subjective Date of Service: 06/26/24 Interval History: Seen and evaluated this morning Feels better but reporting mild discomfort RUQ no fever or chills no other events Review of Systems Review of Systems: Yes all other systems are reviewed and are negative Physical Exam Vital Signs: Vital Signs: Last Vital Signs Temp 97.2 F 06/26/24 13:02 Pulse 81 06/26/24 13:02 Resp 18 06/26/24 13:02 BP 194/83 H 06/26/24 13:02 Pulse Ox 93 06/26/24 13:02 O2 Del Method Room Air 06/26/24 13:02 O2 Flow Rate 2 06/26/24 11:50 BMI result Body Mass Index 29.9 Const: Other: Constitutional : interactive, not in distress Cardiovascular : no JVP, no lower extremity edema Respiratory : bilateral chest movement, not in resp distress Gastrointestinal: soft, lax, Non tender, mild RUQ discomfort Skin : Warm, Dry Neurological : Alert & oriented , No focal deficit Objective Data Active Medications Acetaminophen (Acetaminophen 325 Mg Tablet) 650 mg PO Q6H PRN PRN Reason: Pain, Mild 1-3,fever,headache Al Hydroxide/Mg Hydroxide (Magnesium Hydrox/Alum Hydrox 30 Ml Oral.Susp) 30 ml PO DAILY PRN PRN Reason: GI Distress Amantadine HCl (Amantadine Hcl 100 Mg Capsule) 100 mg PO DAILY [facility] Last Admin: 06/26/24 08:24 Dose: 100 mg Documented By: RYAN Bisacodyl (Bisacodyl 10 Mg Supp.Rect) 10 mg [place] DAILY PRN PRN Reason: Constipation Calcium Carbonate (Calcium Carbonate 750 Mg Tab.Chew) 750 mg PO Q4H PRN PRN Reason: Heartburn Cyanocobalamin (Cyanocobalamin (Vitamin B-12) 500 Mcg Tablet) 500 mcg PO DAILY [facility] Last Admin: 06/26/24 08:25 Dose: 500 mcg Documented By: RYAN Divalproex Sodium (Divalproex Sodium 250 Mg Tablet.Dr) 750 mg PO BID [facility] Last Admin: 06/26/24 08:24 Dose: 750 mg Documented By: RYAN Docusate Sodium (Docusate Sodium 100 Mg Capsule) 100 mg PO BID [facility] Last Admin: 06/26/24 08:25 Dose: 100 mg Documented By: RYAN Fluoxetine HCl (Fluoxetine Hcl 10 Mg Capsule) 10 mg PO DAILY [facility] Last Admin: 06/26/24 08:24 Dose: 10 mg Documented By: RYAN Fluoxetine HCl (Fluoxetine Hcl 20 Mg Capsule) 40 mg PO DAILY [facility] Last Admin: 06/26/24 08:25 Dose: 40 mg Documented By: RYAN Folic Acid (Folic Acid 1 Mg Tablet) 1 mg PO DAILY [facility] Last Admin: 06/26/24 08:25 Dose: 1 mg Documented By: RYAN Gabapentin (Gabapentin 100 Mg Capsule) 100 mg PO BID [facility] Last Admin: 06/26/24 08:25 Dose: 100 mg Documented By: RYAN Guaifenesin (Guaifenesin 200 Mg/10 Ml 10 Ml Liquid) 10 ml PO Q4H PRN PRN Reason: Cough Guaifenesin (Guaifenesin La 600 Mg Tab.Er.12h) 600 mg PO BID PRN PRN Reason: Cough Lisinopril (Lisinopril 10 Mg Tablet) 10 mg PO DAILY [facility]; Protocol Last Admin: 06/26/24 08:24 Dose: 10 mg Documented By: RYAN Loperamide HCl (Loperamide Hcl 2 Mg Capsule) 2 mg PO Q6H PRN PRN Reason: Loose Stool Magnesium Hydroxide (Milk Of Magnesia 30 Ml Oral.Susp) 30 ml PO DAILY PRN PRN Reason: Constipation Melatonin (Melatonin 3 Mg Tablet) 6 mg PO BEDTIME PRN PRN Reason: Insomnia Mirtazapine (Mirtazapine 15 Mg Tablet) 15 mg PO BEDTIME [facility] Last Admin: 06/25/24 20:23 Dose: 15 mg Documented By: DAMARIS Naloxone HCl (Naloxone Hcl 0.4 Mg/Ml Vial) 0.04 mg IVPUSH Q5M PRN PRN Reason: Excessive sedation or RR < 8 Nitroglycerin (Nitroglycerin 0.4 Mg Tab.Subl) 0.4 mg SUBLINGUAL Q5M PRN PRN Reason: Chest Pain Ondansetron HCl (Ondansetron Hcl 4 Mg/2 Ml Vial) 4 mg IVPUSH Q8H PRN PRN Reason: Nausea and Vomiting Phenytoin Sodium (Phenytoin Sodium Extended 100 Mg Capsule) 200 mg PO BID [facility] Last Admin: 06/26/24 08:25 Dose: 200 mg Documented By: RYAN Polyethylene Glycol (Polyethylene Glycol 3350 17 Gm Powd.Pack) 17 gm PO DAILY [facility] Last Admin: 06/26/24 08:31 Dose: Not Given Documented By: RYAN Non-Admin Reason: Patient Refused Pravastatin Sodium (Pravastatin Sodium 20 Mg Tablet) 20 mg PO BEDTIME [facility] Last Admin: 06/25/24 20:23 Dose: 20 mg Documented By: DAMARIS Senna (Sennosides 8.6 Mg Tablet) 17.2 mg PO BEDTIME [facility] Last Admin: 06/25/24 20:22 Dose: 17.2 mg Documented By: DAMARIS Sodium Chloride (0.9 % Sodium Chloride Flush 3 Ml Syringe) 3 ml IVFLUSH QSHIFT [facility] Last Admin: 06/26/24 08:31 Dose: 3 ml Documented By: RYAN Vitamin D (Cholecalciferol (Vitamin D3) 25 Mcg Tablet) 50 mcg PO DAILY [facility] Last Admin: 06/26/24 08:25 Dose: 50 mcg Documented By: RYAN Labs 06/24/24 06:31 06/25/24 05:57 Labs: Laboratory Results - last 24 hr 06/26/24 05:41 Hold Purple Top SEE NOTE Total Bilirubin 1.7 H Direct Bilirubin 1.2 H AST 56 H ALT 51 H Alkaline Phosphatase 349 H Total Protein 5.6 L Albumin 2.9 L Assessment and Plan (1) Dilated cbd, acquired: Status: Acute Assessment and Plan: d5 for 68yo F with hx PE on apixaban, Parkinson's disease, mood disorder, HFpEF, seizure disorder, hypertension, and previous CVA presenting with upper abdominal burning and nausea, found to have dilated CBD and elevated alkaline phosphatase CBD stricture/near-complete obstruction concern for pancreatic malignancy with altered anatomy on failed ERCP 5: Stomach anatomy seemed altered with pylorus pushed to one side. The duodenoscope was then passed and with some difficulty passed into the second part of the duodenum, and was mostly in the long position due to unstable scope position. The tome was angled and a dream wire was passed but kept going into the PD. A louann precut was performed but still CBD could not be cannulated. A jagwire was used and it was the same issue. I attempted to place a 4 Fr PD stent but this fell out during the procedure. After a few more attempts at wire guided cannulation of the CBD the procedure was aborted. discussed with GI and IR; plan PTC then Patient to return as outpt for Spyglass [cholangioscope] biopsy of CBD lesion through PTC CA 19.9 pending GERD IV PPI hx PE [Jan 2024] continue to hold apixaban for now given PTC tomorrow Parkinson's disease continue amantadine HFpEF appears euvolemic seizure disorder divalproex and phenytoin HTN lisinopril hx CVA statin mood disorder fluoxetine, mirtazapine VTE ppx SCDs, hold apixaban dispo intermediate eventually the patient requires continued inpatient hospitalization for the following reasons: CBD blockage; PCT (2) Elevated alkaline phosphatase level: Status: Acute (3) Elevated transaminase level: Status: Acute (4) Abdominal pain: Status: Acute Quality Stroke Does the patient have a stroke diagnosis?: No VTE Prior VTE?: No VTE Risk Level:: Medical - moderate - high VTE Device Contraindication: N/A - Device Ordered VTE Drug Contraindication: Treatment Not Indicated
--- NOTE | 2024-06-26 16:02 | PC.NURSE ---
Pt bp elevated t/o day, 1600 176/89 automated, sleeping and c/o no pain. MD aware
[2024-06-26] MEDS: lisinopriL 20 MG TABLET PO (18:03)
[2024-06-26] MEDS: Mirtazapine 15 MG TABLET PO (20:22)
[2024-06-26] MEDS: Pravastatin Sodium 20 MG TABLET PO (20:23)
[2024-06-26] MEDS: Sennosides 8.6 MG TABLET 17.2 MG PO (20:23)
--- NOTE | 2024-06-27 02:02 | PC.NURSE ---
pt refusing seizure precaution pads, pads placed in room just in case.
[2024-06-27 06:29] LABS: MANUAL DIFF FLAG NO
[2024-06-27 06:33] LABS: Basophils Percent Auto 0.3 % (0-2); Eosinophils Absolute Auto 0.2 X10*3/uL (0.0-0.4); Eosinophils Percent Auto 4.1 % (0-4); Hematocrit 33.3 % (37.0-47.0); Hemoglobin 11.3 g/dl (12.0-16.0); Imm Gran Abs Auto 0.04 X10*3/uL (0.00-0.03); Imm Gran Pct Auto 0.7 % (0.0-0.4); Lymphocytes Absolute Auto 1.3 X10*3/uL (1.2-4.9); Lymphocytes Percent Auto 21.2 % (20-40); Mean Corpuscular HGB Conc 33.9 g/dl (31.0-35.0); Mean Corpuscular Volume 100.3 fL (80.0-98.0); Mean Platelet Volume 10.4 fL (9.4-12.3); Monocytes Absolute Auto 0.6 X10*3/uL (0.1-1.2); Monocytes Percent Auto 9.7 % (2-11); Neutrophils Absolute Auto 3.8 x10*3/uL (2.0-8.3); Platelet Count 209 X10*3/uL (160-400); Red Blood Count 3.32 X10*6/uL (4.20-5.50); Red Cell Distribution Width 14.1 % (11.0-16.0); White Blood Count 5.9 X10*3/uL (4.8-10.8)
[2024-06-27 06:54] LABS: Alanine Aminotransferase 107 U/L (0-31); Albumin Level 3.1 g/dL (3.5-5.0); Alkaline Phosphatase 436 U/L (39-117); Anion Gap 9 (12-20); Aspartate Amino Transferase 123 U/L (5-31); Bilirubin Direct 2.4 mg/dL (0.0-0.5); Bilirubin Total 3.2 mg/dL (0.0-1.0); Blood Urea Nitrogen 18 mg/dL (9-16); Calcium 8.4 mg/dL (8.4-10.2); Carbon Dioxide 25 mmol/L (22-29); Chloride 109 mmol/L (96-108); Creatinine Clr Calc Pharmacy 76.1; Estimated Glomerular Filt Rate > 60; Glucose Random 90 mg/dL (60-115); Potassium 4.4 mmol/L (3.3-5.1); Sodium 139 mmol/L (135-145); Total Protein 5.7 g/dL (6.5-8.0)
[2024-06-27] MEDS: Folic Acid 1 MG TABLET PO (07:50)
[2024-06-27] MEDS: Docusate Sodium 100 MG CAPSULE PO (07:50)
[2024-06-27] MEDS: Divalproex Sodium 250 MG TABLET.DR 750 MG PO (07:50)
[2024-06-27 07:51] VITALS: BP 143/70; PULSE 73; RESP 18; TEMP 36.5; O2SAT 94
[2024-06-27] MEDS: Gabapentin 100 MG CAPSULE PO (07:51)
[2024-06-27] MEDS: amantadine HCL 100 MG CAPSULE PO (07:51)
[2024-06-27] MEDS: Cyanocobalamin (Vitamin B-12) 500 MCG TABLET PO (07:51)
[2024-06-27] MEDS: Phenytoin Sodium Extended 100 MG CAPSULE 200 MG PO (07:51)
[2024-06-27] MEDS: lisinopriL 20 MG TABLET PO (07:51)
[2024-06-27] MEDS: FLUoxetine HCl 10 MG CAPSULE PO (07:51)
[2024-06-27] MEDS: FLUoxetine HCl 20 MG CAPSULE 40 MG PO (07:51)
[2024-06-27] MEDS: 0.9 % Sodium Chloride Flush 3 ML SYRINGE IVFLUSH ×2 (07:52→17:11)
[2024-06-27] MEDS: Cholecalciferol (Vitamin D3) 25 MCG TABLET 50 MCG PO (07:52)
--- NOTE | 2024-06-27 08:01 | P.PNGI_ITS ---
Subjective Subjective Date of Service: 06/26/24 Interval History: Seen and evaluated at bedside. Reports MRI abd with and without contrast: No definite pancreatic mass. Ascites. Calcific atherosclerosis. Mild degenerative change of the spine. Posterior annular fissure at L5-S1. On the MRCP images, intrahepatic biliary ductal dilation is reidentified. The gallbladder is distended. The common bile duct measures up to 12 mm in diameter. A focal stricture of the common bile duct approximately 4 cm proximal to the ampulla appears complete and extends over a length of 7 mm. The common bile duct is normal in diameter distal to the stricture. No definite choledocholithiasis. The main pancreatic duct measures less than 3 mm although a segment of the main pancreatic duct is not well visualized within the pancreatic head. Critical Care Time (minutes): 0 Physical Exam 2 Vital Signs: Vital Signs: Last Vital Signs Temp 98.6 F 06/26/24 07:44 Pulse 76 06/26/24 07:44 Resp 16 06/26/24 07:44 BP 160/70 H 06/26/24 07:44 Pulse Ox 94 06/26/24 07:44 O2 Del Method Room Air 06/26/24 07:44 O2 Flow Rate 3 06/23/24 18:35 BMI result Body Mass Index 29.9 Seen and evaluated at bedside. Reports no abd pain, N,V IR guided PTBD not successful as intrahepatic duct could not be accessed 06/26. Reviewed with the pt who is agreeable to transfer to OSH with EUS/ERCP capacity for further mgmt of mid CBD stricture. Objective Data Labs 06/27/24 06:08 06/27/24 06:08 Labs: Laboratory Results - last 24 hr 06/24/24 06/26/24 Unknown 05:41 Hold Purple Top SEE NOTE Total Bilirubin 1.7 H Direct Bilirubin 1.2 H AST 56 H ALT 51 H Alkaline Phosphatase 349 H Total Protein 5.6 L Albumin 2.9 L Stl C. cayetanensis PCR Not Detected Stool Rotavirus A PCR Not Detected Stl Adenov F 40/41 PCR Not Detected Stool Astrovirus (PCR) Not Detected Stool Campylobacter PCR Not Detected Stool Cryptosporidium PCR Not Detected Stl Sh Tox Pr E STEC PCR Not Detected Stool E coli O157 PCR Not applicable Stl Enterotoxigenic E PCR Not Detected Stool EPEC (PCR) Not Detected Stool EAEC (PCR) Not Detected Stl E. histolytica PCR Not Detected Stool Giardia Lamblia PCR Not Detected Stl P. shigelloides PCR Not Detected Stool Salmonella PCR Not Detected Stool Sapovirus (PCR) Not Detected Stl Shigella/EIEC PCR Not Detected St Y.enterocolitica PCR Not Detected Stool Vibrio (PCR) Not Detected Stl Vibrio cholerae PCR Not Detected Stl Norovirus GI/GII PCR Not Detected Imaging MRI - abdomen: Radiologist's impression: 1. Complete or near-complete narrowing/stricture of the common bile duct approximately 4 cm proximal to the ampulla without definite choledocholithiasis. Recommend further evaluation with repeat ERCP, and endoscopic ultrasound if there is a continued concern for pancreatic mass. This results in intrahepatic and extrahepatic biliary ductal dilation and abnormal distention of the gallbladder. 2. Trace bilateral pleural effusions and left greater than right lower lobe subsegmental atelectasis. 3. Ascites. 4. Chronic and incidental findings as above. 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 ERCP 06/23 and IR intervention 06/26 both unsuccessful at accessing the stricture for brushing/biopsy and biliary drainage. Recommend transfer to tertiary care with EUS facility for possible EUS guided anterograde access and drainage of CBD. This was reviewed with the hospitalist. Date of service 06/27/24 Time Spent With Patient Time: Total time managing care of this patient today ____ minutes. Quality Stroke Does the patient have a stroke diagnosis?: No VTE Prior VTE?: No VTE Risk Level:: Medical - moderate - high VTE Device Contraindication: N/A - Device Ordered VTE Drug Contraindication: Treatment Not Indicated
--- NOTE | 2024-06-27 13:09 | MHC.CM.PN ---
EMR REVIEWED AND PER MD ROUNDS, PT IS NOT MEDICALLY CLEARED FOR DC (CONTINUES WITH UPPER ABDOMINAL PAIN) CM WILL CONT TO FOLLOW FOR ANY CHANGE TO DC NEEDS/PLAN
--- NOTE | 2024-06-27 13:46 | P.PNIM_ITS ---
Subjective Subjective Date of Service: 06/27/24 Interval History: Seen and evaluated this morning reporting mild discomfort RUQ no fever or chills Failed trial to place PCT to gallbladder\bile duct no other events Review of Systems Review of Systems: Yes all other systems are reviewed and are negative Physical Exam 2 Vital Signs: Vital Signs: Last Vital Signs Temp 97.7 F 06/27/24 07:51 Pulse 73 06/27/24 07:51 Resp 18 06/27/24 07:51 BP 143/70 H 06/27/24 07:51 Pulse Ox 94 06/27/24 07:51 O2 Del Method Room Air 06/27/24 07:51 O2 Flow Rate 2 06/26/24 11:50 BMI result Body Mass Index 29.9 Const: Other: Constitutional : interactive, not in distress Cardiovascular : no JVP, no lower extremity edema Respiratory : bilateral chest movement, not in resp distress Gastrointestinal: soft, lax, Non tender, mild RUQ discomfort but no rebound or surgical signs Skin : Warm, Dry Neurological : Alert & oriented , No focal deficit Objective Data Active Medications Acetaminophen (Acetaminophen 325 Mg Tablet) 650 mg PO Q6H PRN PRN Reason: Pain, Mild 1-3,fever,headache Al Hydroxide/Mg Hydroxide (Magnesium Hydrox/Alum Hydrox 30 Ml Oral.Susp) 30 ml PO DAILY PRN PRN Reason: GI Distress Amantadine HCl (Amantadine Hcl 100 Mg Capsule) 100 mg PO DAILY [facility] Last Admin: 06/27/24 07:51 Dose: 100 mg Documented By: MIGUEL Bisacodyl (Bisacodyl 10 Mg Supp.Rect) 10 mg AL DAILY PRN PRN Reason: Constipation Calcium Carbonate (Calcium Carbonate 750 Mg Tab.Chew) 750 mg PO Q4H PRN PRN Reason: Heartburn Cyanocobalamin (Cyanocobalamin (Vitamin B-12) 500 Mcg Tablet) 500 mcg PO DAILY [facility] Last Admin: 06/27/24 07:51 Dose: 500 mcg Documented By: MIGUEL Divalproex Sodium (Divalproex Sodium 250 Mg Tablet.Dr) 750 mg PO BID [facility] Last Admin: 06/27/24 07:50 Dose: 750 mg Documented By: MIGUEL Docusate Sodium (Docusate Sodium 100 Mg Capsule) 100 mg PO BID [facility] Last Admin: 06/27/24 07:50 Dose: 100 mg Documented By: MIGUEL Fluoxetine HCl (Fluoxetine Hcl 10 Mg Capsule) 10 mg PO DAILY [facility] Last Admin: 06/27/24 07:51 Dose: 10 mg Documented By: MIGUEL Fluoxetine HCl (Fluoxetine Hcl 20 Mg Capsule) 40 mg PO DAILY [facility] Last Admin: 06/27/24 07:51 Dose: 40 mg Documented By: MIGUEL Folic Acid (Folic Acid 1 Mg Tablet) 1 mg PO DAILY [facility] Last Admin: 06/27/24 07:50 Dose: 1 mg Documented By: MIGUEL Gabapentin (Gabapentin 100 Mg Capsule) 100 mg PO BID [facility] Last Admin: 06/27/24 07:51 Dose: 100 mg Documented By: MIGUEL Guaifenesin (Guaifenesin 200 Mg/10 Ml 10 Ml Liquid) 10 ml PO Q4H PRN PRN Reason: Cough Guaifenesin (Guaifenesin La 600 Mg Tab.Er.12h) 600 mg PO BID PRN PRN Reason: Cough Lisinopril (Lisinopril 20 Mg Tablet) 20 mg PO DAILY [facility]; Protocol Last Admin: 06/27/24 07:51 Dose: 20 mg Documented By: MIGUEL Loperamide HCl (Loperamide Hcl 2 Mg Capsule) 2 mg PO Q6H PRN PRN Reason: Loose Stool Magnesium Hydroxide (Milk Of Magnesia 30 Ml Oral.Susp) 30 ml PO DAILY PRN PRN Reason: Constipation Melatonin (Melatonin 3 Mg Tablet) 6 mg PO BEDTIME PRN PRN Reason: Insomnia Mirtazapine (Mirtazapine 15 Mg Tablet) 15 mg PO BEDTIME [facility] Last Admin: 06/26/24 20:22 Dose: 15 mg Documented By: SVEN Naloxone HCl (Naloxone Hcl 0.4 Mg/Ml Vial) 0.04 mg IVPUSH Q5M PRN PRN Reason: Excessive sedation or RR < 8 Nitroglycerin (Nitroglycerin 0.4 Mg Tab.Subl) 0.4 mg SUBLINGUAL Q5M PRN PRN Reason: Chest Pain Ondansetron HCl (Ondansetron Hcl 4 Mg/2 Ml Vial) 4 mg IVPUSH Q8H PRN PRN Reason: Nausea and Vomiting Phenytoin Sodium (Phenytoin Sodium Extended 100 Mg Capsule) 200 mg PO BID [facility] Last Admin: 06/27/24 07:51 Dose: 200 mg Documented By: MIGUEL Polyethylene Glycol (Polyethylene Glycol 3350 17 Gm Powd.Pack) 17 gm PO DAILY [facility] Last Admin: 06/27/24 08:03 Dose: Not Given Documented By: MIGUEL Non-Admin Reason: Patient Refused Pravastatin Sodium (Pravastatin Sodium 20 Mg Tablet) 20 mg PO BEDTIME [facility] Last Admin: 06/26/24 20:23 Dose: 20 mg Documented By: SVEN Senna (Sennosides 8.6 Mg Tablet) 17.2 mg PO BEDTIME [facility] Last Admin: 06/26/24 20:23 Dose: 17.2 mg Documented By: SVEN Sodium Chloride (0.9 % Sodium Chloride Flush 3 Ml Syringe) 3 ml IVFLUSH QSHIFT [facility] Last Admin: 06/27/24 07:52 Dose: 3 ml Documented By: MIGUEL Vitamin D (Cholecalciferol (Vitamin D3) 25 Mcg Tablet) 50 mcg PO DAILY [facility] Last Admin: 06/27/24 07:52 Dose: 50 mcg Documented By: MIGUEL Labs 06/27/24 06:08 06/27/24 06:08 Labs: Laboratory Results - last 24 hr 06/27/24 06:08 MCV 100.3 H MCH 34.0 H MCHC 33.9 RDW 14.1 Plt Count 209 MPV 10.4 Immature Gran % (Auto) 0.7 H Neut % (Auto) 64.0 Lymph % (Auto) 21.2 [place] % (Auto) 9.7 Eos % (Auto) 4.1 H Baso % (Auto) 0.3 Lymph # (Auto) 1.3 [place] # (Auto) 0.6 Eos # (Auto) 0.2 Baso # (Auto) 0.0 Abs Immat Gran (auto) 0.04 H Absolute Neuts (auto) 3.8 Absolute Nucleated RBC 0.000 Nucleated RBC % (auto) 0.0 Anion Gap 9 L Estim Creat Clear Calc 76.1 Estimated GFR > 60 Random Glucose 90 Calcium 8.4 Total Bilirubin 3.2 H Direct Bilirubin 2.4 H AST 123 H ALT 107 H Alkaline Phosphatase 436 H Total Protein 5.7 L Albumin 3.1 L Assessment and Plan (1) Dilated cbd, acquired: Status: Acute Assessment and Plan: A 68yo F with hx 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 The duodenoscope was then passed and with some difficulty passed into the second part of the duodenum, and was mostly in the long position due to unstable scope position. The tome was angled and a dream wire was passed but kept going into the PD. A louann precut was performed but still CBD could not be cannulated. A jagwire was used and it was the same issue. I attempted to place a 4 Fr PD stent but this fell out during the procedure. After a few more attempts at wire guided cannulation of the CBD the procedure was aborted. CA 19.9 pending check Amylas,lipase IR could not place a PTC Plan was to place the PTC then to bring patient back as OP for Spyglass [cholangioscope] biopsy of CBD lesion through PTC GI now suggesting transfer out for EUS +/- ERCP again , will reach out to [facility] GERD Continue IV PPI hx PE [Jan 2024] continue to hold apixaban for now given PTC tomorrow Parkinson's disease continue amantadine HFpEF appears euvolemic seizure disorder divalproex and phenytoin HTN lisinopril hx CVA statin mood disorder fluoxetine, mirtazapine VTE ppx SCDs, hold apixaban dispo fdc eventually the patient requires continued inpatient hospitalization for the following reasons: CBD blockage; Transaminitis (2) Elevated alkaline phosphatase level: Status: Acute (3) Elevated transaminase level: Status: Acute Quality Stroke Does the patient have a stroke diagnosis?: No VTE Prior VTE?: No VTE Risk Level:: Medical - moderate - high VTE Device Contraindication: N/A - Device Ordered VTE Drug Contraindication: Treatment Not Indicated
[2024-06-27 14:21] LABS: Amylase 48 U/L (28-100); Lipase 63 U/L (8-78)
[2024-06-27 16:08] VITALS: BP 141/72; PULSE 75; RESP 18; TEMP 36.4; O2SAT 98
--- NOTE | 2024-06-27 16:49 | PM.DS ---
DS: Providers Provider Date of Service: 06/27/24 Date of admission: 06/21/24 20:21 Date of discharge: 06/27/24 Primary care physician: Glen Pugh MD Consults: 06/21/24 20:13 Consult to Gastroenterology Routine Consulting Provider: Kat Du Reason for consultation: dilated cbd, elevated alk phos DS: Diagnosis Discharge Diagnosis (1) Dilated cbd, acquired: Status: Acute (2) Elevated alkaline phosphatase level: Status: Acute (3) Elevated transaminase level: Status: Acute (4) Abdominal pain: Status: Acute DS: Summary Hospital Course Hospital Course: Admission note HPI This is a 68-year-old female with pertinent history of PE on Eliquis, Parkinson's disease, mood disorder, congestive heart failure with preserved ejection fraction, seizure disorder, hypertension, previous CVA who presents to the emergency department for evaluation of burning upper abdominal pain and nausea. Patient states her symptoms started 4-5 days prior to presentation. She began having burning upper abdominal/chest discomfort which radiated to her throat. Also has been having intractable nausea and poor p.o. intake. Denies vomiting. Is also having loose stools, intermittently. No melena or hematochezia. No fever, chills, palpitations, shortness of breath, changes in urinary habits. In the emergency department, CBD noted to be dilated on abdominal ultrasound. Alk-phos found to be elevated with elevated transaminases. Gastroenterology was consulted who requested admission. Hospital course The patient was admitted for the following: # CBD stricture/near-complete obstruction with transaminitis concerning for pancreatic malignancy with altered anatomy on failed ERCP Abd MRI Complete or near-complete narrowing/stricture of the common bile duct approximately 4 cm proximal to the ampulla without definite choledocholithiasis. Recommend further evaluation with repeat ERCP, and endoscopic ultrasound if there is a continued concern for pancreatic mass. This results in intrahepatic and extrahepatic biliary ductal dilation and abnormal distention of the gallbladder. ERCP /5: Stomach anatomy seemed altered with pylorus pushed to one side. The duodenoscope was then passed and with some difficulty passed into the second part of the duodenum, and was mostly in the long position due to unstable scope position. The tome was angled and a dream wire was passed but kept going into the PD. A louann precut was performed but still CBD could not be cannulated. A jagwire was used and it was the same issue. I attempted to place a 4 Fr PD stent but this fell out during the procedure. After a few more attempts at wire guided cannulation of the CBD the procedure was aborted. CA 19.9 pending, CEA mildly elevated at 4. normal Amylas,lipase. IR could not place a PTC on 06/26/2024. Plan was to place the PTC then to bring patient back as OP for Spyglass [cholangioscope] biopsy of CBD lesion through PTC. GI suggesting transfer out for EUS +/- ERCP again , she was accepted at [facility]. # GERD, PPI # hx PE [Jan 2024] continue to hold apixaban for now. Lovenox SC. # Parkinson's disease, continue amantadine # HFpEF, appears euvolemic # seizure disorder, divalproex and phenytoin # HTN, lisinopril # hx CVA, statin # mood disorder, fluoxetine, mirtazapine Discharge plan Transfer to [facility] for further work up, EUS and repeat ERCP. accepting dr Torres. Time Attestation Discharge Coordination Time (in mins): 43 Quality: Safe Use of Opioids Does Pt have an Active Cancer Diagnosis on the Problem List?: No Quality: Stroke Does the patient have a stroke diagnosis?: No Physical Exam Vital Signs: Vital Signs: Last Vital Signs Temp 97.6 F 06/27/24 16:08 Pulse 75 06/27/24 16:08 Resp 18 06/27/24 16:08 BP 141/72 H 06/27/24 16:08 Pulse Ox 98 06/27/24 16:08 O2 Del Method Room Air 06/27/24 16:08 O2 Flow Rate 2 06/26/24 11:50 BMI result Body Mass Index 29.9 Const: Other: Constitutional : interactive, not in distress Cardiovascular : no JVP, no lower extremity edema Respiratory : bilateral chest movement, not in resp distress Gastrointestinal: soft, lax, Non tender, mild RUQ discomfort but no rebound or surgical signs Skin : Warm, Dry Neurological : Alert & oriented , No focal deficit DS: Data Data Completed and Pending Completed studies during hospitalization [Text1]: Procedures Insertion of Internal Fixation Device into Right Upper Femur, Percutaneous Approach (01/26/21) Labs on day of discharge: Laboratory Results - last 24 hr 06/27/24 06:08 WBC 5.9 RBC 3.32 L Hgb 11.3 L Hct 33.3 L MCV 100.3 H MCH 34.0 H MCHC 33.9 RDW 14.1 Plt Count 209 MPV 10.4 Immature Gran % (Auto) 0.7 H Neut % (Auto) 64.0 Lymph % (Auto) 21.2 [place] % (Auto) 9.7 Eos % (Auto) 4.1 H Baso % (Auto) 0.3 Lymph # (Auto) 1.3 [place] # (Auto) 0.6 Eos # (Auto) 0.2 Baso # (Auto) 0.0 Abs Immat Gran (auto) 0.04 H Absolute Neuts (auto) 3.8 Absolute Nucleated RBC 0.000 Nucleated RBC % (auto) 0.0 Sodium 139 Potassium 4.4 Chloride 109 H Carbon Dioxide 25 Anion Gap 9 L BUN 18 H Creatinine 0.71 Estim Creat Clear Calc 76.1 Estimated GFR > 60 Random Glucose 90 Calcium 8.4 Total Bilirubin 3.2 H Direct Bilirubin 2.4 H AST 123 H ALT 107 H Alkaline Phosphatase 436 H Total Protein 5.7 L Albumin 3.1 L Amylase 48 Lipase 63 Imaging MRI - abdomen: Radiologist's impression: ITS Impressions Guidance Fluoroscopy 06/23/24 17:00 IMPRESSION: Fluoroscopy during procedure. Please see procedure report for additional information. Electronically signed by: Tito Bernal MD 06/25/2024 07:14 AM EDT MRI Abd IMPRESSION: 1. Complete or near-complete narrowing/stricture of the common bile duct approximately 4 cm proximal to the ampulla without definite choledocholithiasis. Recommend further evaluation with repeat ERCP, and endoscopic ultrasound if there is a continued concern for pancreatic mass. This results in intrahepatic and extrahepatic biliary ductal dilation and abnormal distention of the gallbladder. 2. Trace bilateral pleural effusions and left greater than right lower lobe subsegmental atelectasis. 3. Ascites. 4. Chronic and incidental findings as above. This document has been electronically signed by: Roly Salvador DO on 06/24/2024 11:35:24 MRCP IMPRESSION: 1. Worsening CBD dilatation with obstruction of the mid CBD. Choledocholithiasis is favored by MRCP. ERCP may be confirmatory and/or therapeutic. 2. Extrinsic mass-effect of the mid CBD is considered less likely in this noncontrast study and not excluded. Stricture also considered. 3. Distention of the gallbladder with known sludge. Please correlate for cholecystitis given mild adjacent fluid. This document has been electronically signed by: Zackery Retana MD on 06/22/2024 20:47:10 Discharge Plan Discharge Anticipated Discharge Date/Time: 06/27/24 16:38 Patient Disposition: Xfer Acute Care Hospital Discharge Diagnosis: Dilated CBD Transaminitis Referrals: Glen Pugh MD [Primary Care Provider] - 1 Week Discharge Medications: Continued fluoxetine 40 mg capsule 1 cap PO DAILY Rx Instructions: 50mg TDD divalproex 250 mg tablet,delayed release (DR/EC) 3 tab PO BID folic acid 1 mg tablet 1 tab PO DAILY pravastatin 20 mg tablet 1 tab PO BEDTIME phenytoin sodium extended 100 mg capsule 2 tab PO BID nitroglycerin 0.4 mg Tablet, Sublingual 0.4 mg SUBLINGUAL Q5M PRN (Reason: Chest Pain) Rx Instructions: do not exceed 3 doses per episode mirtazapine 15 mg tablet 15 mg PO BEDTIME alum-mag hydroxide-simeth [Mintox] 200-200-20 mg/5 mL Suspension 30 ml PO DAILY PRN (Reason: GI Distress) acetaminophen 500 mg Tablet 1,000 mg PO Q6H PRN (Reason: Pain (Scale Score 1-3)) guaifenesin 100 mg/5 mL Liquid 200 mg PO Q4H PRN (Reason: Cough) guaifenesin [Mucinex] 600 mg tablet extended release 12hr 600 mg PO BID PRN (Reason: Cough) amantadine HCl 100 mg tablet 100 mg PO DAILY polyethylene glycol 3350 [Miralax] 17 gram/dose powder 17 g PO DAILY 30 Days Qty: 510 6RF gabapentin 100 mg capsule 100 mg PO BID sennosides [senna] 8.6 mg tablet 17.2 mg PO BEDTIME lisinopril 10 mg tablet 10 mg PO DAILY cholecalciferol (vitamin D3) 50 mcg (2,000 unit) capsule 50 mcg PO DAILY cyanocobalamin (vitamin B-12) 500 mcg tablet 500 mcg PO DAILY docusate sodium [Colace] 100 mg capsule 100 mg PO BID bisacodyl 10 mg suppository 10 mg LA DAILY PRN (Reason: Constipation) loperamide [Anti-Diarrheal (loperamide)] 2 mg capsule 2 mg PO Q6H PRN (Reason: Loose Stool) magnesium hydroxide [Milk of Magnesia] 400 mg/5 mL suspension 30 ml PO DAILY PRN (Reason: Constipation) fluoxetine 10 mg capsule 10 mg PO DAILY Rx Instructions: 50mg TDD Held apixaban 5 mg tablet 5 mg PO BID Qty: 180 0RF Hold Instructions: Hold Rx Instructions: start on 02/12 Discharge Orders: Discharge Order (Routine); Ordered 06/27/24 Ordered By: Kelly Gaytan Diet: Advance to usual diet Activity on Discharge: As tolerated Stand Alone Forms: Patient Portal Discharge page Print Language: Sinhala Care Plan Goals: Further evaluation for CBD dilation and elevated liver enzymes Health Concerns: CBD Dilation Plan of Treatment: ERCP, EUS Assessment: as above
[2024-06-27 18:27] VITALS: BP 159/73; PULSE 89; RESP 18; TEMP 37; O2SAT 94
[2024-06-28 10:15] LABS: Carbohydrate Antigen 19-9 <3 U/mL (<34)
== END 2024-06-27 18:36 | disposition short-term general hospital (02) | DRG 445 ==
LOC: HO.ED 20:31 → HO.EDOVER 21:12 → HO.S3 06-22 14:12
PROVIDERS: Family Medicine; Internal Medicine Gastroenterology; Physician Assistant Medical; Radiology Diagnostic Radiology; Admitting Provider Student in an Organized Health Care Education/Training Program; Emergency Provider Emergency Medicine; PCP Internal Medicine; Visit Provider Student in an Organized Health Care Education/Training Program
PROC: 0FJB8ZZ Inspection of Hepatobiliary Duct, Via Natural or Artificial Opening Endoscopic (ICD-10-PCS; CPT 43260; principal; 2024-06-23 01:30)
PROC: 0FJB3ZZ Inspection of Hepatobiliary Duct, Percutaneous Approach (ICD-10-PCS; principal; 2024-06-26 10:30)
DX: K83.1 Obstruction of bile duct (principal); C25.9 Malignant neoplasm of pancreas, unspecified; I50.32 Chronic diastolic (congestive) heart failure; I25.10 Atherosclerotic heart disease of native coronary artery without angina pectoris; G20.A1 Parkinson's disease without dyskinesia, without mention of fluctuations; I11.0 Hypertensive heart disease with heart failure; K21.9 Gastro-esophageal reflux disease without esophagitis; E87.5 Hyperkalemia; G40.909 Epilepsy, unspecified, not intractable, without status epilepticus; F17.210 Nicotine dependence, cigarettes, uncomplicated; Z71.6 Tobacco abuse counseling; Z20.822 Contact with and (suspected) exposure to COVID-19; Z86.73 Personal history of transient ischemic attack (TIA), and cerebral infarction without residual deficits; Z86.711 Personal history of pulmonary embolism; Z79.01 Long term (current) use of anticoagulants; Z79.899 Other long term (current) 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
CPT/HCPCS: 0241U; 36415; 47533; 71046; 74181; 74183; 76705; 80048; 80053; 80076; 81001; 82150; 82248; 82378; 82607; 82746; 83690; 83735; 84484; 85025; 85027; 85610; 86301; 87086; 87507; 93005; 97162; 99152; 99153; 99285; A9585; C1769; C1894; C2617; J1100; J1610; J2003; J2250; J2405; J2470; J2704; J3010; Q9967

== ENCOUNTER → 2024-06-21 17:16 | Outpatient (BNV) | payer MEDICARE, BC, SELFPAY | PROVIDERS: Emergency Provider Emergency Medicine; Visit Provider Radiology Diagnostic Radiology | DX: K82.8 Other specified diseases of gallbladder (principal) | CPT/HCPCS: 71046; 76705 ==

== ENCOUNTER 2024-06-21 20:21 | Outpatient (BNV) | payer MEDICARE, MEDICAID, SELFPAY | END 2024-06-22 19:45 | PROVIDERS: Admitting Provider Student in an Organized Health Care Education/Training Program; Emergency Provider Emergency Medicine; PCP Internal Medicine; Visit Provider Radiology Neuroradiology | DX: J90 Pleural effusion, not elsewhere classified (principal); J98.11 Atelectasis; R18.8 Other ascites | CPT/HCPCS: 74181 ==

== ENCOUNTER 2024-06-21 20:21 | Outpatient (BNV) | payer MEDICARE, MEDICAID, SELFPAY | END 2024-06-26 10:30 | PROVIDERS: Admitting Provider Student in an Organized Health Care Education/Training Program; Emergency Provider Emergency Medicine; PCP Internal Medicine; Visit Provider Radiology Diagnostic Radiology | DX: T85.590A Other mechanical complication of bile duct prosthesis, initial encounter (principal) | CPT/HCPCS: 47533 ==

== ENCOUNTER 2024-06-21 20:21 | Outpatient (BNV) | payer MEDICARE, MEDICAID, SELFPAY | END 2024-06-24 09:00 | PROVIDERS: Admitting Provider Student in an Organized Health Care Education/Training Program; Emergency Provider Emergency Medicine; PCP Internal Medicine; Visit Provider Radiology Diagnostic Radiology | DX: J98.11 Atelectasis (principal); R18.8 Other ascites; N20.0 Calculus of kidney | CPT/HCPCS: 74183 ==

== ENCOUNTER → 2024-06-21 20:21 | Outpatient (BNV) | payer MEDICARE, MEDICAID, SELFPAY | PROVIDERS: Admitting Provider Student in an Organized Health Care Education/Training Program; Emergency Provider Emergency Medicine; PCP Internal Medicine; Visit Provider Internal Medicine | DX: R10.9 Unspecified abdominal pain (principal); R74.01 Elevation of levels of liver transaminase levels; K83.8 Other specified diseases of biliary tract | CPT/HCPCS: 99222 ==

== ENCOUNTER 2024-07-24 10:21 | Emergency (ER) | payer MEDICARE, MEDICAID, SELFPAY ==
--- NOTE | ~2024-07-24 | CT_ITS ---
EXAMINATION: CT ABDOMEN AND PELVIS WITH CONTRAST CLINICAL INFORMATION: Weakness. Dizziness. Fever. Prior pulmonary artery emboli.. COMPARISON: February 03, 2024. TECHNIQUE: Multidetector volumetric images were obtained from the superior aspect of the liver through the pubic symphysis following administration 85 mL of Omnipaque 350 intravenous contrast. Sagittal and coronal reformatted images were obtained on the technologist's workstation. Oral contrast: No This CT examination was performed using dose optimization techniques as appropriate, variously including the following: *Automated exposure control *Adjustment of mA and/or kV according to patient size (this includes techniques or standardized protocols for targeted exams where dose is matched to indication/reason for exam; i.e. extremities or head) *Use of iterative reconstruction technique DLP: 793.85 mGy centimeter. FINDINGS: LUNG BASES: Pulmonary groundglass in the periphery of the lung bases. LIVER, GALLBLADDER, AND BILIARY TREE: Liver measures 19 cm. There is pneumobilia. There is mild intrahepatic biliary ductal dilatation. No focal mass. The main portal vein and hepatic veins are patent. Fluid-filled gallbladder. Status post biliary stent/drain. PANCREAS: [Status post stent/drain in the main pancreatic duct into the third portion of the duodenum. No peripancreatic fluid collections. Main pancreatic duct measures 2 mm maximum diameter. I do not see a focal mass. SPLEEN: 9 cm. No focal lesion. ADRENAL GLANDS: Soft tissue fullness left adrenal gland. No nodular lesion, right adrenal gland. KIDNEYS AND URETERS: No hydronephrosis. Multifocal cystic lesions in the kidneys. Questionable nonobstructing nephrolithiasis versus retained contrast in the pelvicalyceal system. No gross renal mass. BLADDER: Fluid-filled. GASTROINTESTINAL TRACT: Appendix is normal. Collapsed appearance of the cecum. No intestinal obstruction pattern. No pneumatosis intestinalis. No pneumoperitoneum. Small amount of ascites. No peripheral enhancing fluid collection in the peritoneal cavity. ABDOMINAL WALL: No gross umbilical hernia. LYMPH NODES: Nonspecific prominent lymph nodes. Edema pattern in the origin of the mesenteric arteries. VASCULAR: Calcified plaques abdominal aorta wall and iliac arteries origin of the main renal arteries. No aneurysm or dissection abdominal aorta. Calcified plaques in the coronary arteries and thoracic aorta. Calcified plaques in the aortic valve and mitral valve. PELVIC VISCERA: Inadequate evaluation. OSSEOUS STRUCTURES: Multilevel thoracolumbar spondylosis. 3. Metallic screws through the right femoral head neck instability region likely intervertebral fixation of the subcapital/basocervical fracture right femur, old. Osteopenia versus osteoporosis. CT/CT abdomen pelvis w IV con IMPRESSION: Status post biliary and main pancreatic duct stenting/drainage with pneumobilia and mild intrahepatic and extrahepatic biliary ductal dilatation. Superimposed cholangitis cannot be excluded. Ascites, small volume. Atherosclerosis disease and coronary artery disease. Fleischner guidelines were followed. Electronically signed by: Arnold Andres MD 07/24/2024 01:06 PM EDT
--- NOTE | ~2024-07-24 | CT_ITS ---
EXAMINATION: CT ANGIOGRAM CHEST CLINICAL INFORMATION: Left lower chest pain. History of pulmonary emboli. COMPARISON: Chest CT 02/03/2024. TECHNIQUE: Multiple axial images were obtained through the chest after the administration of 85 mL of Omnipaque 350 intravenous contrast. Extensive vascular post-processing including two-dimensional and three-dimensional reformatted images were created and reviewed on an independent workstation. This CT examination was performed using dose optimization techniques as appropriate, variously including the following: *Automated exposure control *Adjustment of mA and/or kV according to patient size (this includes techniques or standardized protocols for targeted exams where dose is matched to indication/reason for exam; i.e. extremities or head) *Use of iterative reconstruction technique FINDINGS: VASCULAR: There is diagnostic opacification of the pulmonary arterial system. There is mild motion limitation especially in the lower lobe distribution. Within the confines of motion, there is no pulmonary embolus identified. The main pulmonary artery is mildly prominent but not pathologically dilated. There is no right heart strain pattern. There is no reflux of contrast into the IVC. The aorta is moderately calcified, however nonaneurysmal. There is no evidence of acute aortic syndrome. The great vessels are heavily calcified at the origin, however there is no high-grade stenosis identified. There is an approximate 50% stenosis of the origin of the left subclavian artery. The heart size is normal. There is no pericardial effusion. There is calcification of the mitral annulus. There are moderate to heavy coronary calcifications. LUNGS: There is mild centrilobular emphysema. There is linear subpleural atelectasis with associated mild groundglass changes in the subpleural left lower lobe, and to a lesser degree the subpleural right lower lobe. There is mild volume loss in the left lower lobe. The lungs are otherwise clear. No consolidations or additional groundglass opacities. The small airways demonstrate no significant thickening or endobronchial mucous plugging. The central airways are patent. There are no suspicious pulmonary nodules identified. There is no pleural effusion or pneumothorax. MEDIASTINUM: The thyroid is partially imaged and appears multinodular. There is no lymphadenopathy or mass within the mediastinum. No esophageal abnormality. CHEST WALL: No adenopathy. No masses. IMAGED UPPER ABDOMEN: Refer to the dedicated abdomen and pelvis CT performed concurrently. OSSEOUS STRUCTURES: There is no suspicious lytic or blastic bone lesion identified. There are mild degenerative changes of the spine. CT/CT angio chest PE protocol IMPRESSION: 1. Respiratory motion degradation. Within these confines, there is no pulmonary embolus. 2. There is no evidence of acute aortic syndrome or aneurysm. There is moderate to advanced aortic atheromatous disease. 3. There is an approximate 50% stenosis of the left subclavian artery at the ostium. 4. There is mild centrilobular emphysema. There is discoid appearing atelectasis in the lower lobes left greater than right. Lungs otherwise clear and free of acute disease. 5. Additional ancillary findings as discussed above. Electronically signed by: Villa Sandoval MD 07/24/2024 12:35 PM EDT
--- NOTE | ~2024-07-24 | XR_ITS ---
EXAMINATION: XR CHEST CLINICAL INFORMATION: syncope COMPARISON: June 21, 2024. TECHNIQUE: Frontal view of the chest was obtained. FINDINGS: Mild prominence of the interstitial lung markings. No consolidation, pleural effusion or pneumothorax. Cardiomediastinal silhouette size is normal. Calcified plaque thoracic aortic arch. Multilevel thoracic spondylosis. Old traumatic deformity with callus formation, right clavicle. Old traumatic deformity at the the right humeral neck proximal diaphysis junction. XR/XR chest 1V IMPRESSION: Probable mild interstitial lung edema in the correct clinical settings. Electronically signed by: Arnold Andres MD 07/24/2024 11:06 AM EDT
[2024-07-24 10:36] VITALS: BP 105/53; BP 113/58; PULSE 80; PULSE 86; RESP 20; TEMP 38.3; O2SAT 94; O2SAT 96
--- NOTE | 2024-07-24 10:46 | ECG_ITS ---
Test Reason : dizziness Blood Pressure : */* mmHG Vent. Rate : 84 BPM Atrial Rate : 84 BPM P-R Int : 156 ms QRS Dur : 92 ms QT Int : 404 ms P-R-T Axes : 50 -19 -40 degrees QTcB Int : 477 ms Normal sinus rhythm Moderate voltage criteria for LVH, may be normal variant ( R in aVL , [place] product ) Possible Anterior infarct , age undetermined T wave abnormality, consider lateral ischemia Abnormal ECG When compared with ECG of 03-Feb-2024 20:26, T wave inversion now evident in Inferior leads Nonspecific T wave abnormality now evident in Anterior leads T wave inversion less evident in Lateral leads Referred By: Milana Ortega Electronically Signed By: BEN SIMMONS
[2024-07-24 10:50] LABS: MANUAL DIFF FLAG NO
[2024-07-24 10:56] VITALS: BP 106/56; PULSE 87; RESP 15; TEMP 37; O2SAT 97
[2024-07-24 10:56] LABS: Basophils Percent Auto 0.4 % (0-2); Eosinophils Percent Auto 0.7 % (0-4); Hemoglobin 11.3 g/dl (12.0-16.0); Imm Gran Abs Auto 0.03 X10*3/uL (0.00-0.03); Imm Gran Pct Auto 0.5 % (0.0-0.4); Lymphocytes Absolute Auto 0.3 X10*3/uL (1.2-4.9); Mean Corpuscular HGB Conc 34.2 g/dl (31.0-35.0); Mean Corpuscular Hemoglobin 34.5 pg (27.0-33.0); Mean Corpuscular Volume 100.6 fL (80.0-98.0); Mean Platelet Volume 10.3 fL (9.4-12.3); Monocytes Absolute Auto 0.5 X10*3/uL (0.1-1.2); Monocytes Percent Auto 9.7 % (2-11); Neutrophils Absolute Auto 4.5 x10*3/uL (2.0-8.3); Neutrophils Percent Auto 82.7 % (45-73); Platelet Count 163 X10*3/uL (160-400); Red Blood Count 3.28 X10*6/uL (4.20-5.50); Red Cell Distribution Width 14.2 % (11.0-16.0); White Blood Count 5.5 X10*3/uL (4.8-10.8)
[2024-07-24 11:14] LABS: B Type Natriuretic Peptide 1189 pg/mL (<100)
--- NOTE | 2024-07-24 11:19 | ED_ITS ---
HPI - Dizziness General Chief Complaint: Dizziness Stated Complaint: DIZZY,BACK PAIN,BP97/65 [facility] PER EMS Time Seen by Provider: 07/24/24 10:29 History of Present Illness HPI Narrative: Patient is a 68-year-old female presents today with generalized malaise dizziness pain to the left lower posterior back area. Patient denies any fever chills. But was noted to have a fever here in the emergency department. Patient feels generally very tired. Has a history of having biliary stenosis. Question etiology had an MRCP that was done in early June. Patient denies any abdominal pain. No pain on urination. No coughing or upper respiratory symptoms. No diaphoresis. Patient is from home. Positive leg swelling. No rash. No diarrhea. Patient from home. Related Data Home Medications ?Medication ?Instructions ?Recorded ?Confirmed divalproex 250 mg tablet,delayed 3 tab PO BID 01/26/21 06/21/24 release fluoxetine 40 mg capsule 1 cap PO DAILY 01/26/21 06/21/24 folic acid 1 mg tablet 1 tab PO DAILY 01/26/21 06/21/24 pravastatin 20 mg tablet 1 tab PO BEDTIME 01/26/21 06/21/24 nitroglycerin 0.4 mg sublingual 0.4 mg sublingual Q5M PRN Chest 06/03/22 06/21/24 tablet Pain phenytoin sodium extended 100 mg 2 tab PO BID 06/03/22 06/21/24 capsule amantadine HCl 100 mg tablet 100 mg PO DAILY 12/09/22 06/21/24 gabapentin 100 mg capsule 100 mg PO BID 07/28/23 06/21/24 sennosides 8.6 mg tablet (senna) 17.2 mg PO BEDTIME 07/28/23 06/21/24 bisacodyl 10 mg rectal suppository 10 mg AL DAILY PRN Constipation 01/11/24 06/21/24 cholecalciferol (vitamin D3) 50 50 mcg PO DAILY 01/11/24 06/21/24 mcg (2,000 unit) capsule cyanocobalamin (vitamin B-12) 500 500 mcg PO DAILY 01/11/24 06/21/24 mcg tablet docusate sodium 100 mg capsule 100 mg PO BID 01/11/24 06/21/24 (Colace) lisinopril 10 mg tablet 10 mg PO DAILY 01/11/24 06/21/24 loperamide 2 mg capsule 2 mg PO Q6H PRN Loose Stool 01/11/24 06/21/24 (Anti-Diarrheal (loperamide)) magnesium hydroxide 400 mg/5 mL 30 ml PO DAILY PRN Constipation 01/11/24 06/21/24 oral suspension (Milk of Magnesia) acetaminophen 500 mg tablet 1,000 mg PO Q6H PRN Pain (Scale 02/03/24 06/21/24 Score 1-3) aluminum-mag hydroxide-simethicone 30 ml PO DAILY PRN GI Distress 02/03/24 06/21/24 200 mg-200 mg-20 mg/5 mL oral susp (Mintox) mirtazapine 15 mg tablet 15 mg PO BEDTIME 02/03/24 06/21/24 fluoxetine 10 mg capsule 10 mg PO DAILY 05/25/24 06/21/24 guaifenesin 100 mg/5 mL oral liquid 200 mg PO Q4H PRN Cough 06/21/24 06/21/24 guaifenesin 600 mg tablet, 600 mg PO BID PRN Cough 06/21/24 06/21/24 extended release 12 hr (Mucinex) Previous Rx's ?Medication ?Instructions ?Recorded polyethylene glycol 3350 17 17 g PO DAILY 30 days #510 grams 04/29/23 gram/dose oral powder (Miralax) apixaban 5 mg tablet 5 mg PO BID #180 tabs 02/06/24 Allergies Allergy/AdvReac Type Severity Reaction Status Date / Time adhesive tape Allergy Unknown hives Verified 07/24/24 10:37 amlodipine [From Norvasc] Allergy Unknown Swelling Verified 07/24/24 10:37 od hands/feet azithromycin [AZITHROMYCIN] Allergy Unknown HIVES Verified 07/24/24 10:37 bacitracin [From Cortisporin] Allergy Unknown Eye Verified 07/24/24 10:37 irritation brompheniramine Allergy Unknown Body Rash Verified 07/24/24 10:37 [From Dimetapp Cold-Allergy (PE)] calcium [From DHEA] Allergy Unknown Unknown Verified 07/24/24 10:37 calcium carbonate [From DHEA] Allergy Unknown Unknown Verified 07/24/24 10:37 cefaclor Allergy Unknown Perineum Verified 07/24/24 10:37 rash chlorpheniramine Allergy Unknown Body Rash Verified 07/24/24 10:37 [From Fedahist] clindamycin Allergy Unknown GI Verified 07/24/24 10:37 upset/pain/vomiting devil's claw Allergy Unknown unsure Verified 07/24/24 10:37 reaction dexbrompheniramine Allergy Unknown Body Rash Verified 07/24/24 10:37 [From Drixoral] diphenhydramine Allergy Unknown Body Rash Verified 07/24/24 10:37 [From Benadryl] doxazosin Allergy Unknown Extreme Verified 07/24/24 10:37 anxiety erythromycin base Allergy Unknown Perineum Verified 07/24/24 10:37 rash garlic Allergy Unknown Unknown Verified 07/24/24 10:37 gentamicin [From Garamycin] Allergy Unknown [eye Verified 07/24/24 10:37 drops] Eye swelling ginkgo biloba Allergy Unknown piercing Verified 07/24/24 10:37 pain in head guaifenesin [From Fedahist] Allergy Unknown Body Rash Verified 07/24/24 10:37 hydralazine Allergy Unknown Swelling Verified 07/24/24 10:37 of feet/legs hydrochlorothiazide Allergy Unknown Itchy palms Verified 07/24/24 10:37 hydrocortisone Allergy Unknown Eye Verified 07/24/24 10:37 [From Cortisporin] irritation Macrolide Antibiotics Allergy Unknown Unknown Verified 07/24/24 10:37 meclizine Allergy Unknown very dry Verified 07/24/24 10:37 mouth methylsulfonylmethane Allergy Unknown Itchy palms Verified 07/24/24 10:37 [From MSM] nebivolol [From Bystolic] Allergy Unknown Swelling Verified 07/24/24 10:37 of feet/ legs neomycin [From Cortisporin] Allergy Unknown Eye Verified 07/24/24 10:37 irritation nifedipine [From Procardia] Allergy Unknown Swelling Verified 07/24/24 10:37 of feet and legs nut - unspecified Allergy Unknown mouth sores Verified 07/24/24 10:37 Peanut Butter Allergy Unknown mouth sores Verified 07/24/24 10:37 penicillin V Allergy Unknown Body rash Verified 07/24/24 10:37 Penicillins Allergy Unknown body rash Verified 07/24/24 10:37 phenylephrine Allergy Unknown Body Rash Verified 07/24/24 10:37 [From Dimetapp Cold-Allergy (PE)] polymyxin B Allergy Unknown Eye Verified 07/24/24 10:37 [From Cortisporin] irritation prasterone (DHEA) [From DHEA] Allergy Unknown Unknown Verified 07/24/24 10:37 propoxyphene [From Darvon] Allergy Unknown Unknown Verified 07/24/24 10:37 pseudoephedrine Allergy Unknown Body Rash Verified 07/24/24 10:37 [From Drixoral] shellfish derived Allergy Unknown itchy body Verified 07/24/24 10:37 Sulfa (Sulfonamide Allergy Unknown Itchy palms Verified 07/24/24 10:37 Antibiotics) sulfamethoxazole Allergy Unknown itchy palms Verified 07/24/24 10:37 [From Bactrim] trimethoprim [From Bactrim] Allergy Unknown itchy palms Verified 07/24/24 10:37 prednisone Allergy Flushing Verified 07/24/24 10:37 tetracycline Allergy Unknown Verified 07/24/24 10:37 Carditone Allergy Unknown Swelling Uncoded 07/24/24 10:37 of feet/legs; itchy body Review of Systems 2 Review of Systems: Positive weakness No coughing no upper respiratory symptoms Yes all other systems are reviewed and are negative PMFSH Past Medical History Attestation statement: The following information was validated with the patient. Medical History Fall Dyslipidemia Colonoscopy refused Osteoporosis Hypothyroid HTN (hypertension) Aortic insufficiency Osteopenia CKD (chronic kidney disease) stage 3, GFR 30-59 ml/min Mitral valve disorder Parkinson's disease without dyskinesia Seizure Parkinson's disease Hx of fracture of femur History of alcohol abuse Diabetes History of encephalopathy History of traumatic subdural hematoma Tobacco dependence Atherosclerotic cardiovascular disease Non-rheumatic aortic stenosis Preoperative cardiovascular examination Myocardial infarct History of coronary artery disease Seizure disorder Hypertension Fall Surgical History History of breast biopsy History of tubal ligation History of hip surgery Family History Family History Mother No problems noted. Father No problems noted. Social History Social History Household Members: Other Housing: Other Housing Other:: group home home Do you presently have visiting nurse or other home services: No Alcohol intake: former Patient Tobacco Use Status: Current everyday Tobacco user Tobacco use type: Cigarette Cigarette Packs Per Day: 1 Cigarettes Per Day: 4 Years Smoked: 40 Smoked in Last 30 Days: Yes Second Hand Smoke Exposure: No Use of substances other than those prescribed or required for medical reasons: No Advance Directives: Yes Advance Directives on File: Yes Advance Directives Date on File: 01/26/21 Do you have a plan to hurt others: No Plan service: No Current occupational status: disabled 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 Oriented X3. No acute distress. Appeared jaundice Eyes: Pupils equal, round and reactive to light. ENT: Pharynx normal. Neck: Normal inspection. Neck supple. No lymph nodes noted. No crepitus CVS: Normal heart rate and rhythm. Pulses normal. Normal S1 and S2 Respiratory: No respiratory distress. Breath sounds normal. No Wheezing. No rales Abdomen: Soft and nontender. No rigidity. No distention. good BS x4 Skin: Skin warm and dry. Normal skin color. Normal skin turgor. Extremities: 2+ lower extremity edema. Neurovascular intact to all extremities. No Lacerations. No Rash Neuro: Oriented X 3. No motor deficit. No sensory deficit. Moving all extermities. No slurred speech Medications Administered Discontinued Medications Generic Name Dose Route Start Last Admin Trade Name Freq PRN Reason Stop Dose Admin Piperacillin Sod/Tazobactam 100 mls @ 200 mls/hr 07/24/24 12:43 07/24/24 13:24 Sod 4.5 gm/ Sodium Chloride IV 07/24/24 13:12 200 mls/hr ONCE ONE Administration Iohexol 100 ml 07/24/24 11:56 07/24/24 11:57 Iohexol 350 Mg/Ml 100 Ml Infus..Btl IV 07/24/24 11:57 85 ml ONCE ONE Administration Medical Decision Making Medical Decision Making MDM Narrative: Patient is 68-year-old female with a history of having elevated bilirubin in the past. Had a failed ERCP here at [facility] back in early June. Subsequently was transferred to [facility] for further evaluation at [place] she received a stent to her common bile duct and to her pancreatic duct. Patient been home. Has a history of PE was on Eliquis then was on Lovenox. Question is G if she is on a thinner at this time. Patient presented with posterior chest pain on the left side. My interpretation patient's EKG showed a sinus rhythm heart rate is 80 AL QRS QTC normal no changes when compared to previous EKG. Patient's troponin mildly elevated at approximately 50 this is slightly worse than baseline of about 35. Patient's CTA of the chest was done. There is no evidence for PE there is no evidence for pneumonia there is no evidence for congestive heart failure no evidence for dissection. Because patient had elevated bilirubin that seems to be getting worse worsening LFTs. CT scan of the abdomen pelvis was done. The CT scan abdomen pelvis per radiology showed pneumobilia. Question cholangitis. Patient has no abdominal pain but did have a fever. Lactate was 1.8 there is no evidence for severe sepsis. Patient had a be elevated BNP we elected not to give too much fluids as she had a history of congestive heart failure with preserved EF. Antibiotic was done cultures were obtained. Patient's case discussed with [facility]. Accepted patient under Dr. Rm service. Patient's hemoglobin is baseline at 11. Patient's INR is 1.5 consistent with taking Eliquis. Patient is LFT showed a bilirubin of 4.1 this is higher than June which was 3.2. AST ALT with 333 and 347 respectively this is elevated from previous as well. Patient only had an initial fever. Cultures were obtained. Patient had numerous allergy but had only of rash many years ago when she had penicillin I did give patient a dose of Zosyn for empiric coverage of the abdomen. Patient to be transferred. Risks and benefits of transfer explained to patient agreed to plan. Differential Diagnosis Differential Diagnoses: The differential diagnosis associated with the presentation includes Cholangitis, liver failure, postop changes on CT, urinary tract infection, pneumonia, PE, pneumothorax Admission/Observation Consideration of admission/observation: Escalation of care including admission/observation considered Consult Healthcare Provider Management of the patient was discussed with: Clinic Receptionist ([facility], GI at [facility]) Lab Data MDM Lab Attestation statement: I reviewed the patient's lab results. 07/24/24 10:44 07/24/24 11:09 Labs: Lab Results 07/24/24 07/24/24 07/24/24 Range/Units 10:44 11:09 11:15 WBC 5.5 (4.8-10.8) X10*3/uL RBC 3.28 L (4.20-5.50) X10*6/uL Hgb 11.3 L (12.0-16.0) g/dl Hct 33.0 L (37.0-47.0) % MCV 100.6 H (80.0-98.0) fL MCH 34.5 H (27.0-33.0) pg MCHC 34.2 (31.0-35.0) g/dl RDW 14.2 (11.0-16.0) % Plt Count 163 (160-400) X10*3/uL MPV 10.3 (9.4-12.3) fL Immature Gran % (Auto) 0.5 H (0.0-0.4) % Neut % (Auto) 82.7 H (45-73) % Lymph % (Auto) 6.0 L (20-40) % [place] % (Auto) 9.7 (2-11) % Eos % (Auto) 0.7 (0-4) % Baso % (Auto) 0.4 (0-2) % Lymph # (Auto) 0.3 L (1.2-4.9) X10*3/uL [place] # (Auto) 0.5 (0.1-1.2) X10*3/uL Eos # (Auto) 0.0 (0.0-0.4) X10*3/uL Baso # (Auto) 0.0 (0.0-0.2) X10*3/uL Abs Immat Gran (auto) 0.03 (0.00-0.03) X10*3/uL Absolute Neuts (auto) 4.5 (2.0-8.3) x10*3/uL Absolute Nucleated RBC 0.000 (0.0-0.012) X10*3/uL Nucleated RBC % (auto) 0.0 (0.0-0.2) /100WBC PT 17.2 H (10.9-12.4) SEC INR 1.5 H (0.9-1.1) Hold Blue Top SEE NOTE Sodium 138 (135-145) mmol/L Potassium 3.7 (3.3-5.1) mmol/L Chloride 105 (96-108) mmol/L Carbon Dioxide 25 (22-29) mmol/L Anion Gap 12 (12-20) BUN 16 (9-16) mg/dL Creatinine 0.80 (0.5-1.4) mg/dL Estim Creat Clear Calc 67.7 Estimated GFR > 60 Random Glucose 140 H (60-115) mg/dL Lactic Acid 1.8 (0.5-2.0) mmol/L Calcium 8.1 L (8.4-10.2) mg/dL Magnesium 1.6 (1.6-2.6) mg/dL Total Bilirubin 4.1 H (0.0-1.0) mg/dL AST 333 H (5-31) U/L ALT 347 H (0-31) U/L Troponin I High Sens 58.8 H* D (<3.5-17.0) ng/L B-Natriuretic Peptide 1189 H (<100) pg/mL Total Protein 5.7 L (6.5-8.0) g/dL Albumin 3.0 L (3.5-5.0) g/dL Lipase 42 (8-78) U/L Independent Interpretation I performed an independent interpretation of an: EKG (My interpretation patient's EKG as above) and CT Scan (CTA of the chest showed no gross pneumonia no large clots) Radiology Impression Discussion of test interpretation with radiology: I have reviewed the radiologist's reading. External Record Review External record reviewed: Inpatient record Chronic Conditions Patient?s care impacted by: Hypertension History of hyperlipidemia history of chronic kidney disease history of seizure history of Parkinson's history of diabetes Social Determinants Patient?s care significantly limited by Social Determinants of Health including: Problems related to primary support group Critical Care Time Critical Care Time Critical Care Time: Yes Total Critical Care Time: 40 Attestation: I have personally provided 40 minutes of critical care time exclusive of time spent on separately billable procedures. ?Time includes review of lab data, radiology results, discussion with consultants, and monitoring for potential decompensation. ?Interventions were performed as documented above Discharge Plan Discharge Clinical Impression: Elevated bilirubin, Acute cholangitis Patient Disposition: [facility] Transfer Details: Transferred to [facility] Prescriptions: No Action fluoxetine 40 mg capsule 1 cap PO DAILY Rx Instructions: 50mg TDD divalproex 250 mg tablet,delayed release (DR/EC) 3 tab PO BID folic acid 1 mg tablet 1 tab PO DAILY pravastatin 20 mg tablet 1 tab PO BEDTIME phenytoin sodium extended 100 mg capsule 2 tab PO BID nitroglycerin 0.4 mg Tablet, Sublingual 0.4 mg SUBLINGUAL Q5M PRN (Reason: Chest Pain) Rx Instructions: do not exceed 3 doses per episode mirtazapine 15 mg tablet 15 mg PO BEDTIME alum-mag hydroxide-simeth [Mintox] 200-200-20 mg/5 mL Suspension 30 ml PO DAILY PRN (Reason: GI Distress) acetaminophen 500 mg Tablet 1,000 mg PO Q6H PRN (Reason: Pain (Scale Score 1-3)) apixaban 5 mg tablet 5 mg PO BID Qty: 180 0RF Rx Instructions: start on 02/12 guaifenesin 100 mg/5 mL Liquid 200 mg PO Q4H PRN (Reason: Cough) guaifenesin [Mucinex] 600 mg tablet extended release 12hr 600 mg PO BID PRN (Reason: Cough) amantadine HCl 100 mg tablet 100 mg PO DAILY polyethylene glycol 3350 [Miralax] 17 gram/dose powder 17 g PO DAILY 30 Days Qty: 510 6RF gabapentin 100 mg capsule 100 mg PO BID sennosides [senna] 8.6 mg tablet 17.2 mg PO BEDTIME lisinopril 10 mg tablet 10 mg PO DAILY cholecalciferol (vitamin D3) 50 mcg (2,000 unit) capsule 50 mcg PO DAILY cyanocobalamin (vitamin B-12) 500 mcg tablet 500 mcg PO DAILY docusate sodium [Colace] 100 mg capsule 100 mg PO BID bisacodyl 10 mg suppository 10 mg AL DAILY PRN (Reason: Constipation) loperamide [Anti-Diarrheal (loperamide)] 2 mg capsule 2 mg PO Q6H PRN (Reason: Loose Stool) magnesium hydroxide [Milk of Magnesia] 400 mg/5 mL suspension 30 ml PO DAILY PRN (Reason: Constipation) fluoxetine 10 mg capsule 10 mg PO DAILY Rx Instructions: 50mg TDD Print Language: Libyan
[2024-07-24 11:28] LABS: INTERNATIONAL NORM RATIO 1.5 (0.9-1.1); Prothrombin Time 17.2 SEC (10.9-12.4)
--- NOTE | 2024-07-24 11:29 | PC.NURSE ---
Patient is a 68-year-old female with pertinent history of PE on Eliquis, Parkinson's disease, mood disorder, congestive heart failure with preserved ejection fraction, seizure disorder, hypertension, previous CVA who presents to the emergency department for for dizziness. Alert and oriented. Patient appears jaundiced. 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 Recommend further evaluation with repeat ERCP, and endoscopic ultrasound if there is a continued concern for pancreatic mass. This results in intrahepatic and extrahepatic biliary ductal dilation and abnormal distention of the gallbladder. ERCP 06/23: Stomach anatomy seemed altered with pylorus pushed to one side. Cardac monitor maintained and NSR noted. Lungs essentially clear. Respirations even and non-labored. Long history of smoking. Abdomen soft non-tender with positive bowel sounds. c/o keft upper back pain. Positive pedal pulses with trace edema noted.
[2024-07-24 11:41] LABS: Alanine Aminotransferase 347 U/L (0-31); Anion Gap 12 (12-20); Aspartate Amino Transferase 333 U/L (5-31); Bilirubin Total 4.1 mg/dL (0.0-1.0); Blood Urea Nitrogen 16 mg/dL (9-16); Calcium 8.1 mg/dL (8.4-10.2); Carbon Dioxide 25 mmol/L (22-29); Chloride 105 mmol/L (96-108); Creatinine Clr Calc Pharmacy 67.7; Estimated Glomerular Filt Rate > 60; Glucose Random 140 mg/dL (60-115); Lipase 42 U/L (8-78); Magnesium 1.6 mg/dL (1.6-2.6); Potassium 3.7 mmol/L (3.3-5.1); Sodium 138 mmol/L (135-145); Total Protein 5.7 g/dL (6.5-8.0)
[2024-07-24 11:43] LABS: Lactic Acid 1.8 mmol/L (0.5-2.0)
[2024-07-24 11:54] LABS: Troponin-I High Sensitivity 58.8 ng/L (<3.5-17.0)
[2024-07-24] MEDS: iohexoL 350 MG/ML 100 ML INFUS..BTL IV (11:57)
[2024-07-24 12:19] VITALS: BP 110/48; PULSE 76; RESP 15; TEMP 36.9; O2SAT 97
--- OUTSIDE RECORDS SUMMARY | 2024-07-24 12:57 | XMS_ITS | Encounter Summary ---
Author Organization [facility] [place] [address] Care Team Providers Care Chief Technical Officer Name Role Phone Glen Pugh MD Primary Care Provider [phone] Encounter Details Date Type Department Care Team (Late st Contact Info) Description 04/24/2024 Lab Requisition [facility] - Main Lab [address] [facility] [place] [id number] Glen Pugh MD [address], [place] [id number] Shortness of breath; Acute cough Social History [...] Procedure Name Priority Date/Time Associated Diagnosis Comments [id number], RSV, FLU A AND B QUALITATIVE RT-PCR, LOCAL REFERENCE LAB Routine 04/23/2024 12:00 AM EST Shortness of breath Acute cough documented in this encounter Results * (ABNORMAL) [id number], RSV, Influenza A and B qualitative RT-PCR (04/23/2024 12:00 AM EST) SARS COV-2 Not Detected Not Detected LAB MOLECULAR DIAGNOSTICS METHOD 04/24/2024 1:02 PM [facility] Comment: Disclaimer: The manner in which this information is used to guide patient care is the responsibility of the healthcare provider. Testing was performed using the [employer] Al[employer] m SARS-CoV-2 test. This test has been authorized by [facility] under an Emergency Use Authorization (EUA). This [...] for Healthcare Providers can be found at: https://www.fda.gov/media/012616/download Fact sheet for Patients can be found at: https://www.fda.gov/media/492153/download Influenza A PCR Not Detected Not Detected LAB MOLECULAR DIAGNOSTICS METHOD 04/24/2024 1:02 PM [facility] Influenza B PCR Not Detected Not Detected LAB MOLECULAR DIAGNOSTICS METHOD 04/24/2024 1:02 PM [facility] RSV PCR Detected(A ) Not Detected LAB MOLECULAR DIAGNOSTICS METHOD 04/24/2024 1:02 PM [facility] Swab Nasopharyngeal structure / Unknown Non-blood Collection / Unknown 04/23/2024 04/24/2024 9:42 AM EST us Glen Pugh MD LAB MICROBIOLOGY - GENERAL ORDERABLES Final Result [facility] [address] [place] [address], documented in this encounter Visit Diagnoses Diagnosis Shortness of breath Acute cough documented in this encounter Additional Health Concerns Infection Onset Date Last Indicated Resolved Time Respiratory Rule-Out 04/23/2024 04/23/2024 025 1:02 PM EST RSV 04/23/2024 04/23/2024 05/17/2024 7:04 PM EST documented as of this encounter Care Teams Chief Technical Officer Relationship Specialty Start Date End Date Glen Pugh MD [address] [place] [id number] PCP - General 10/14/23 documented as of this encounter
--- OUTSIDE RECORDS SUMMARY | 2024-07-24 12:57 | XMS_ITS | Encounter Summary ---
Author Organization [facility] [place] [address] Care Team Providers Care Joinery Setter Out Name Role Phone Glen Pugh MD Primary Care Provider [phone]- [phone] Encounter Details Date Type Department Care Team (Late st Contact Info) Description 07/17/2024 Lab Requisition [facility] - Main Lab [address] [facility] [place] [phone] Glen Pugh MD [address] [place], [place] [phone] Type 2 diabetes mellitus without complications (CMS/HCC V24, CMS/HCC V28); Essential (primary) hypertension; Atherosclerotic heart disease of [place] coronary artery without angina pectoris Social History Tobacco Use Types Packs/Day Years [...] Procedure Name Priority Date/Time Associated Diagnosis Comments HEMOGLOBIN A1C Routine 07/17/2024 7:14 AM EDT Type 2 diabetes mellitus without complications (CMS/HCC V24, CMS/HCC V28) Essential (primary) hypertension Atherosclerotic heart disease of [place] coronary artery without angina pectoris COMPREHENSIVE METABOLIC PANEL Routine 07/17/2024 7:14 AM EDT Type 2 diabetes mellitus without complications ([facility] V24, [facility] V28) Essential (primary) hypertension Atherosclerotic heart disease of [place] coronary artery without angina pectoris documented in this encounter Results * Hemoglobin A1c (07/17/2024 7:14 AM EDT) [facility] Hemoglobin A1C 5.5 <6.5 % LAB CHEMISTRY METHOD 07/17/2024 12:50 PM EDT [facility] Mean Bld Glu Estim. 111 mg/dL LAB CHEMISTRY METHOD 07/17/2024 12:50 PM EDT [facility] Blood Venous blood specimen / Unknown Venipuncture / Unknown 07/17/2024 7:14 AM EDT 07/17/2024 9:29 AM EDT us Glen Pugh MD LAB BLOOD ORDERABLES Final Result [facility] [address] [place] [address], * (ABNORMAL) Comprehensive metabolic panel (07/17/2024 7:14 AM EDT) [facility] Sodium 141 133 - 145 mmol/L LAB CHEMISTRY METHOD 07/17/2024 11:03 AM [facility] Potassium 4.7 3.5 - 5.5 mmol/L LAB CHEMISTRY METHOD 07/17/2024 11:03 AM [facility] Chloride 109 96 - 110 mmol/L LAB CHEMISTRY METHOD 07/17/2024 11:03 AM [facility] CO2 26 21 - 32 mmol/L LAB CHEMISTRY METHOD 07/17/2024 11:03 AM [facility] Anion Gap 6 3 - 11 LAB CHEMISTRY METHOD 07/17/2024 11:03 AM [facility] Glucose 71 70 - 100 mg/dL LAB CHEMISTRY METHOD 07/17/2024 11:03 AM [facility] BUN 21 5 - 25 mg/dL LAB CHEMISTRY METHOD 07/17/2024 11:03 AM [facility] Creatinine 0.87 0.50 - 1.10 mg/dL LAB CHEMISTRY METHOD 07/17/2024 11:03 AM [facility] eGFR 72 >=60 mL/min/1. 73m2 LAB CHEMISTRY METHOD 07/17/2024 11:03 AM [facility] Comment:Calculation based on the??Chronic Kidney Disease Epidemiology Collaboration (CKD-EPI) equation refit??without adjustment for race. BUN/Creatinine Ratio 24.1 LAB CHEMISTRY METHOD 07/17/2024 11:03 AM [facility] Calcium 8.5 8.5 - 10.5 mg/dL LAB CHEMISTRY METHOD 07/17/2024 11:03 AM [facility] AST (SGOT) 27 10 - 42 unit/L LAB CHEMISTRY METHOD 07/17/2024 11:03 AM [facility] ALT (SGPT) 31 10 - 60 unit/L LAB CHEMISTRY METHOD 07/17/2024 11:03 AM [facility] Alkaline Phosphatase 155(H) 42 - 121 unit/L LAB CHEMISTRY METHOD 07/17/2024 11:03 AM [facility] Total Protein 6.0 6.0 - 8.0 g/dL LAB CHEMISTRY METHOD 07/17/2024 11:03 AM [facility] Albumin 3.0(L) 3.2 - 5.0 g/dL LAB CHEMISTRY METHOD 07/17/2024 11:03 AM [facility] Total Bilirubin 0.4 0.0 - 1.4 mg/dL LAB CHEMISTRY METHOD 07/17/2024 11:03 AM [facility] Blood Venous blood specimen / Unknown Venipuncture / Unknown 07/17/2024 7:14 AM EDT 07/17/2024 9:29 AM EDT Glen Pugh MD LAB BLOOD ORDERABLES Final Result [facility] [address] [place] [address], documented in this encounter Visit Diagnoses Diagnosis Type 2 diabetes mellitus without complications (CMS/HCC V24, CMS/HCC V28) Essential (primary) hypertension Unspecified essential hypertension Atherosclerotic heart disease of [place] coronary artery without angina pectoris documented in this encounter Care Teams Joinery Setter Out Relationship Specialty Start Date End Date Glen Pugh MD [address] [place] [id number] PCP - General 10/14/23 documented as of this encounter
--- OUTSIDE RECORDS SUMMARY | 2024-07-24 12:57 | XMS_ITS ---
Author Name [facility] Organization Unknown Results Test Name/Text Value Interpretation Date Range Source ALT SerPl-cCnc 108U/L Above high normal [id number] 10 - 50 [facility] Calcium SerPl-mCnc 8.6mg/dL Below low normal [id number] 8 .7 - 10.5 [facility] Glucose SerPl-mCnc 108mg/dL Above high normal [id number] 65 - 99 [facility] BUN SerPl-mCnc 27mg/dL Above high normal [id number] 8 - 21 [facility] Bilirub SerPl-mCnc 0.9mg/dL Normal [id number] 0.2 - 1 [facility] CO2 SerPl-sCnc 25mmol/L Normal [id number] 22 - 33 HH CCT Globulin Ser Calc-mCnc 2.8g/dL Normal [id number] 1.5 - 3.9 [facility] ALP SerPl-cCnc 339U/L Above high normal [id number] 32 - 122 [facility] Creat SerPl-mCnc 0.8mg/dL Normal [id number] 0.4 - 1.1 [facility] Albumin/Glob SerPl 1.3Ratio Normal [id number] 1 - 3 [facility] Albumin SerPl-mCnc 3.6g/dL Normal [id number] 3.4 - 4. 8 [facility] BUN/Creat SerPl 34Ratio Above high normal [id number] 10 - 25 [facility] Anion Gap Bld-sCnc 9 Normal [id number] 7 - 17 [facility] GFR/BSA.pred SerPlBld QXE-SBW-KlLDyf 80 Normal [id number] 59 - [facility]CT Sodium SerPl-sCnc 136mmol/L Normal [id number] 136 - 145 [facility] Prot SerPl-mCnc 6.4g/dL Normal [id number] 6.3 - 8.3 H HCCT AST SerPl-cCnc 108U/L Above high normal [id number] 10 - 50 [facility] Chloride SerPl-sCnc 102mmol/L Normal [id number] 98 - 10 7 [facility]CT Potassium SerPl-sCnc 4.6mmol/L Normal [id number] 3.4 - 5.3 [facility]CT MCH RBC Qn Auto 33.6pg Above high normal [id number] 27 - 31 [facility] MCV RBC Auto 103fL Above high normal [id number] 80 - 1 00 [facility] Hgb Bld-mCnc 12.7g/dL Normal [id number] 11.7 - 15.7 HH CCT WBC num Bld Auto 6.4Thou/uL Normal [id number] 4 - 11 [facility] RBC num Bld Auto 3.78Mil/uL Below low normal [id number] 4 - 5.4 H[facility]CT MCHC RBC Auto-mCnc 32.6g/dL Normal [id number] 30 - 36 [facility] RDW RBC Auto-Rto 13.9% Normal [id number] 11.5 - 14. 5 [facility] PMV Bld Auto 10.5fL Normal [id number] 7.5 - 12.[address] Platelet num Bld Auto 299Thou/uL Normal [id number] 150 - 450 [facility] Hct VFr Bld Auto 38.9% Normal [id number] 35 - 47 [facility] Albumin SerPl-mCnc 3.5g/dL Normal [id number] 3.4 - 4. 8 [facility] AST SerPl-cCnc 65U/L Above high normal [id number] 10 - 50 [facility] BUN SerPl-mCnc 17mg/dL Normal [id number] 8 - 21 HH CCT ALT SerPl-cCnc 80U/L Above high normal [id number] 10 - 50 [facility]CT Anion Gap Bld-sCnc 10 Normal [id number] 7 - 17 [facility]CT Creat SerPl-mCnc 0.8mg/dL Normal [id number] 0.4 - 1.1 H[facility]CT GFR/BSA.pred SerPlBld ZEO-YGV-ScSLqs 80 Normal [id number] 59 - HHCCT Calcium SerPl-mCnc 9mg/dL Normal [id number] 8.7 - 10 .5 [facility]CT BUN/Creat SerPl 21Ratio Normal [id number] 10 - 25 H HCCT Sodium SerPl-sCnc 139mmol/L Normal [id number] 136 - 145 H[facility]CT ALP SerPl-cCnc 427U/L Above high normal [id number] 32 - 122 H[facility]CT Chloride SerPl-sCnc 102mmol/L Normal [id number] 98 - 10 7 H[facility]CT Prot SerPl-mCnc 6.7g/dL Normal [id number] 6.3 - 8.3 H HCCT Bilirub SerPl-mCnc 1.2mg/dL Above high normal [id number] 0.2 - 1 [facility] Albumin/Glob SerPl 1.1Ratio Normal [id number] 1 - 3 [facility]CT Potassium SerPl-sCnc 4.2mmol/L Normal 3.4 - 5.3 [facility]CT Glucose SerPl-mCnc 118mg/dL Above high normal [id number] 65 - 99 [facility]CT CO2 SerPl-sCnc 27mmol/L Normal 22 - 33 HH CCT Globulin Ser Calc-mCnc 3.2g/dL Normal 1.5 - 3.9 [facility]CT Platelet num Bld Auto 262Thou/uL Normal [id number] 150 - 450 [facility]CT RDW RBC Auto-Rto 13.6% Normal [id number] 11.5 - 14. 5 [facility] RBC num Bld Auto 3.91Mil/uL Below low normal [id number] 4 - 5.4 H[facility]CT PMV Bld Auto 10.4fL Normal 7.5 - 12.[address] Hgb Bld-mCnc 12.7g/dL Normal 11.7 - 15.7 HH CCT Hct VFr Bld Auto 39.2% Normal 35 - 47 H[facility]CT MCH RBC Qn Auto 32.5pg Above high normal [id number] 27 - 31 HHCCT MCHC RBC Auto-mCnc 32.4g/dL Normal [id number] 30 - 36 H[facility]CT MCV RBC Auto 100fL Normal [id number] 80 - 100 HHCC T WBC num Bld Auto 6.1Thou/uL Normal [id number] 4 - 11 H[facility]CT Prot SerPl-mCnc 6.6g/dL Normal [id number] 6.3 - 8.3 H HCCT Globulin Ser Calc-mCnc 2.9g/dL Normal [id number] 1.5 - 3.9 H[facility]CT BUN/Creat SerPl 20Ratio Normal [id number] 10 - 25 H HCCT Bilirub SerPl-mCnc 1.6mg/dL Above high normal [id number] 0.2 - 1 H[facility]CT ALT SerPl-cCnc 93U/L Above high normal [id number] 10 - 50 [facility]CT GFR/BSA.pred SerPlBld OZZ-PSQ-BuZOuw 90 Normal [id number] 59 - HHCCT Albumin/Glob SerPl 1.3Ratio Normal [id number] 1 - 3 [facility]CT Anion Gap Bld-sCnc 11 Normal [id number] 7 - 17 [facility]CT CO2 SerPl-sCnc 27mmol/L Normal [id number] 22 - 33 HH CCT Creat SerPl-mCnc 0.7mg/dL Normal [id number] 0.4 - 1.1 H[facility]CT ALP SerPl-cCnc 475U/L Above high normal [id number] 32 - 122 [facility]CT Glucose SerPl-mCnc 169mg/dL Above high normal [id number] 65 - 99 H[facility]CT Calcium SerPl-mCnc 8.9mg/dL Normal [id number] 8.7 - 10 .5 H[facility]CT AST SerPl-cCnc 86U/L Above high normal [id number] 10 - 50 [facility]CT Sodium SerPl-sCnc 140mmol/L Normal [id number] 136 - 145 [facility]CT Chloride SerPl-sCnc 102mmol/L Normal [id number] 98 - 10 7 H[facility]CT Albumin SerPl-mCnc 3.7g/dL Normal [id number] 3.4 - 4. 8 [facility]CT Potassium SerPl-sCnc 3.6mmol/L Normal [id number] 3.4 - 5.3 H[facility]CT BUN SerPl-mCnc 14mg/dL Normal [id number] 8 - 21 HH CCT PMV Bld Auto 10.9fL Normal [id number] 7.5 - 12.[address] MCV RBC Auto 100fL Normal [id number] 80 - 100 HHCC T Hct VFr Bld Auto 37% Normal [id number] 35 - 47 H[facility]CT RBC num Bld Auto 3.69Mil/uL Below low normal [id number] 4 - 5.4 HHCCT WBC num Bld Auto 5.1Thou/uL Normal [id number] 4 - 11 H[facility]CT RDW RBC Auto-Rto 13.5% Normal [id number] 11.5 - 14. 5 [facility]CT Platelet num Bld Auto 213Thou/uL Normal [id number] 150 - 450 H[facility]CT MCH RBC Qn Auto 33.3pg Above high normal [id number] 27 - 31 HHCCT Hgb Bld-mCnc 12.3g/dL Normal [id number] 11.7 - 15.7 HH CCT MCHC RBC Auto-mCnc 33.2g/dL Normal [id number] 30 - 36 HHCCT Magnesium SerPl-mCnc 1.9mg/dL Normal [id number] 1.6 - 2.7 HHCCT BUN/Creat SerPl 27Ratio Above high normal [id number] 10 - 25 H[facility]CT CO2 SerPl-sCnc 27mmol/L Normal [id number] 22 - 33 HH CCT Creat SerPl-mCnc 0.7mg/dL Normal [id number] 0.4 - 1.1 HHCCT BUN SerPl-mCnc 19mg/dL Normal [id number] 8 - 21 HH CCT Anion Gap Bld-sCnc 9 Normal [id number] 7 - 17 HHCCT Bilirub SerPl-mCnc 3.1mg/dL Above high normal [id number] 0.2 - 1 H[facility]CT ALP SerPl-cCnc 483U/L Above high normal [id number] 32 - 122 HHCCT Prot SerPl-mCnc 6.3g/dL Normal [id number] 6.3 - 8.3 H HCCT Glucose SerPl-mCnc 93mg/dL Normal [id number] 65 - 99 HHCCT Potassium SerPl-sCnc 4.1mmol/L Normal [id number] 3.4 - 5.3 HHCCT Chloride SerPl-sCnc 102mmol/L Normal [id number] 98 - 10 7 HHCCT Sodium SerPl-sCnc 138mmol/L Normal [id number] 136 - 145 HHCCT GFR/BSA.pred SerPlBld ZSI-RHY-MxBNpu 90 Normal [id number] 59 - HHCCT ALT SerPl-cCnc 94U/L Above high normal [id number] 10 - 50 HHCCT Calcium SerPl-mCnc 8.6mg/dL Below low normal [id number] 8 .7 - 10.5 H[facility]CT Albumin/Glob SerPl 1.3Ratio Normal [id number] 1 - 3 HHCCT Albumin SerPl-mCnc 3.6g/dL Normal [id number] 3.4 - 4. 8 HHCCT AST SerPl-cCnc 95U/L Above high normal [id number] 10 - 50 HHCCT Globulin Ser Calc-mCnc 2.7g/dL Normal [id number] 1.5 - 3.9 H[facility]CT Neutrophils num Bld Auto 3.34Thou/uL Normal [id number] 2 - 7.5 HHCCT Imm Granulocytes/leuk NFr Bld Auto 0.8% Normal [id number] HHCCT Hct VFr Bld Auto 34.2% Below low normal [id number] 35 - 47 HHCCT MCH RBC Qn Auto 32.8pg Above high normal [id number] 27 - 31 H[facility]CT Neutrophils/leuk NFr Bld Auto 66.6% Normal [id number] HHCCT Basophils/leuk NFr Bld Auto 0.6% Normal [id number] HHCCT Lymphocytes/leuk NFr Bld Auto 16.6% Normal [id number] HHCCT RBC num Bld Auto 3.38Mil/uL Below low normal [id number] 4 - 5.4 HHCCT Imm Granulocytes num Bld Auto 0.04Thou/uL Normal [id number] 0 - 0.1 HHCCT WBC num Bld Auto 5Thou/uL Normal [id number] 4 - 11 HHCCT Monocytes/leuk NFr Bld Auto 10.2% Normal [id number] HHCCT MCV RBC Auto 101fL Above high normal [id number] 80 - 1 00 HHCCT RDW RBC Auto-Rto 14% Normal [id number] 11.5 - 14. 5 HHCCT Lymphocytes num Bld Auto 0.83Thou/uL Below low normal [id number] 1.5 - 4.5 HHCCT Eosinophil/leuk NFr Bld Auto 5.2% Normal [id number] HHCCT Basophils num Bld Auto 0.03Thou/uL Normal [id number] 0 - 0.2 HHCCT Hgb Bld-mCnc 11.1g/dL Below low normal [id number] 11.7 - 15.7 HHCCT Monocytes num Bld Auto 0.51Thou/uL Normal [id number] 0.2 - 1.5 HHCCT Eosinophil num Bld Auto 0.26Thou/uL Normal [id number] 0 - 0.7 HHCCT MCHC RBC Auto-mCnc 32.5g/dL Normal [id number] 30 - 36 HHCCT PMV Bld Auto 10.9fL Normal [id number] 7.5 - 12.[address] Platelet num Bld Auto 206Thou/uL Normal [id number] 150 - 450 HHCCT Globulin Ser Calc-mCnc 2.7g/dL Normal [id number] 1.5 - 3.9 HHCCT Potassium SerPl-sCnc 4.5mmol/L Normal [id number] 3.4 - 5.3 HHCCT GFR/BSA.pred SerPlBld GNS-BBD-RyAPds 80 Normal [id number] 59 - HHCCT Albumin SerPl-mCnc 3.4g/dL Normal [id number] 3.4 - 4. 8 HHCCT Bilirub SerPl-mCnc 3.2mg/dL Above high normal [id number] 0.2 - 1 HHCCT Creat SerPl-mCnc 0.8mg/dL Normal [id number] 0.4 - 1.1 HHCCT Chloride SerPl-sCnc 103mmol/L Normal [id number] 98 - 10 7 HHCCT AST SerPl-cCnc 98U/L Above high normal [id number] 10 - 50 HHCCT ALP SerPl-cCnc 487U/L Above high normal [id number] 32 - 122 HHCCT Glucose SerPl-mCnc 106mg/dL Above high normal [id number] 65 - 99 HHCCT ALT SerPl-cCnc 93U/L Above high normal [id number] 10 - 50 HHCCT BUN/Creat SerPl 23Ratio Normal [id number] 10 - 25 H HCCT Anion Gap Bld-sCnc 5 Below low normal [id number] 7 - 17 HHCCT CO2 SerPl-sCnc 32mmol/L Normal [id number] 22 - 33 HH CCT BUN SerPl-mCnc 18mg/dL Normal [id number] 8 - 21 HH CCT Prot SerPl-mCnc 6.1g/dL Below low normal [id number] 6.3 - 8.3 HHCCT Calcium SerPl-mCnc 8.6mg/dL Below low normal [id number] 8 .7 - 10.5 HHCCT Sodium SerPl-sCnc 140mmol/L Normal [id number] 136 - 145 HHCCT Albumin/Glob SerPl 1.3Ratio Normal [id number] 1 - 3 HHCCT INR PPP 1.4 Normal [id number] HHCCT Prothrombin time 15.6seconds Above high normal [id number] 10 - 13.5 HHCCT Anticoagulant APIXABAN (ELIQUIS) Normal [id number] HHCCT Eosinophil/leuk NFr Bld Auto 4.4% Normal [id number] HHCCT Neutrophils num Bld Auto 3.54Thou/uL Normal [id number] 2 - 7.5 HHCCT MCV RBC Auto 101fL Above high normal [id number] 80 - 1 00 HHCCT Hgb Bld-mCnc 10.7g/dL Below low normal [id number] 11.7 - 15.7 HHCCT WBC num Bld Auto 5.3Thou/uL Normal [id number] 4 - 11 HHCCT MCHC RBC Auto-mCnc 32.4g/dL Normal [id number] 30 - 36 HHCCT Hct VFr Bld Auto 33% Below low normal [id number] 35 - 47 HHCCT Platelet num Bld Auto 213Thou/uL Normal [id number] 150 - 450 HHCCT Basophils num Bld Auto 0.02Thou/uL Normal [id number] 0 - 0.2 HHCCT Imm Granulocytes num Bld Auto 0.03Thou/uL Normal [id number] 0 - 0.1 HHCCT MCH RBC Qn Auto 32.8pg Above high normal [id number] 27 - 31 HHCCT PMV Bld Auto 10.2fL Normal [id number] 7.5 - 12.5 [facility] CT Eosinophil num Bld Auto 0.23Thou/uL Normal [id number] 0 - 0.7 HHT Lymphocytes num Bld Auto 1.06Thou/uL Below low normal [id number] 1.5 - 4.5 HHT Monocytes/leuk NFr Bld Auto 7.4% Normal [id number] HHT RBC num Bld Auto 3.26Mil/uL Below low normal [id number] 4 - 5.4 HHCCT Neutrophils/leuk NFr Bld Auto 67.1% Normal [id number] [facility] Monocytes num Bld Auto 0.39Thou/uL Normal [id number] 0.2 - 1.5 HHT RDW RBC Auto-Rto 14% Normal [id number] 11.5 - 14. 5 [facility] Basophils/leuk NFr Bld Auto 0.4% Normal [id number] [facility] Imm Granulocytes/leuk NFr Bld Auto 0.6% Normal [id number] [facility] Lymphocytes/leuk NFr Bld Auto 20.1% Normal [id number] [facility] Encounters Encounter Type Encounter Reason Primary Diagnosis Location Date Inpatient Unspecified jaundice Unspecified jaundice [facility] 06/27/2024 Care Team Organization Name Specialty Phone Email Start Date End Da te [facility] 07/01/2024 [facility] PROVIDER SYSTEM Primary Care 06/29/2024 [facility] 06/27/2024
--- OUTSIDE RECORDS SUMMARY | 2024-07-24 12:58 | XMS_ITS | Encounter Summary ---
Author Organization [place] [address] Care Team Providers Care Timber Deadener Name Role Phone Glen Pugh MD Primary Care Provider [phone]- [phone] Encounter Details Date Type Department Care Team (Late st Contact Info) Description 06/05/[address] [facility] - Main Lab [address] [facility] [place] [phone] Glen Pugh MD [address] [place], [place] [id number] Type 2 diabetes mellitus without complications (CMS/HCC V24, CMS/HCC V28); Essential (primary) hypertension; Atherosclerotic heart disease of [place] coronary artery without angina pectoris; Hyperlipidemia, unspecified [...] Essential (primary) hypertension Atherosclerotic heart disease of [place] coronary artery without angina pectoris Hyperlipidemia, unspecified FOLATE Routine 06/05/2024 8:07 AM EDT Type 2 diabetes mellitus without complications (CMS/HCC) Essential (primary) hypertension Atherosclerotic heart disease of [place] coronary artery without angina pectoris Hyperlipidemia, unspecified VITAMIN B12 Routine 06/05/2024 8:07 AM EDT Type 2 diabetes mellitus without complications (CMS/HCC) Essential (primary) hypertension Atherosclerotic heart disease of [place] coronary artery without angina pectoris Hyperlipidemia, unspecified BASIC METABOLIC PANEL Routine 06/05/2024 8:07 AM EDT Type 2 diabetes mellitus without complications (CMS/HCC) Essential (primary) hypertension Atherosclerotic heart disease of [place] coronary artery without angina pectoris Hyperlipidemia, unspecified documented in this encounter Results * (ABNORMAL) Vitamin B12 (06/05/2024 8:07 AM EDT) Pathologist [facility] Vitamin B-12 1,075(H) 250 - 900 pcg/mL LAB CHEMISTRY METHOD 06/05/2024 12:47 PM EDT [facility] Blood Venous blood specimen / Unknown Venipuncture / Unknown 06/05/2024 8:07 AM EDT 06/05/2024 11:02 AM EDT us Glen Pugh MD LAB BLOOD ORDERABLES Final Result [facility] [address] [place] [address], * (ABNORMAL) Folate (06/05/2024 8:07 AM EDT) Folate >20.0(H) 2.8 - 17.0 ng/ml LAB CHEMISTRY METHOD 06/05/2024 12:47 PM EDT [facility] Blood Venous blood specimen / Unknown Venipuncture / Unknown 06/05/2024 8:07 AM EDT 06/05/2024 11:02 AM EDT us Glen Pugh MD LAB BLOOD ORDERABLES Final Result [facility] [address] [place] [address], [place] [phone] * Lipid panel with reflex to direct LDL (06/05/2024 8:07 AM EDT) Cholesterol 159 0 - 200 mg/dL LAB CHEMISTRY METHOD 06/05/2024 12:47 PM EDT [facility] Triglycerides 99 0 - 150 mg/dL LAB CHEMISTRY METHOD 06/05/2024 12:47 PM EDT [facility] HDL 78 >=40 mg/dL LAB CHEMISTRY METHOD 06/05/2024 12:47 PM EDT [facility] LDL Calculated 61 0 - 100 mg/dL LAB CHEMISTRY METHOD 06/05/2024 12:47 PM EDT [facility] VLDL Cholesterol Irvin 19.8 mg/dL LAB CHEMISTRY METHOD 06/05/2024 12:47 PM EDT [facility] Non HDL Chol. (LDL+VLDL) 81 <145 mg/dL LAB CHEMISTRY METHOD 06/05/2024 12:47 PM EDT [facility] Chol/HDL Ratio 2.0 0.0 - 4.4 LAB CHEMISTRY METHOD 06/05/2024 12:47 PM EDT [facility] Blood Venous blood specimen / Unknown Venipuncture / Unknown 06/05/2024 8:07 AM EDT 06/05/2024 11:02 AM EDT Glen Pugh MD LAB BLOOD ORDERABLES Final Result [facility] [address] [place] [address], [place] [phone] * (ABNORMAL) Basic metabolic panel (06/05/2024 8:07 AM EDT) Sodium 141 133 - 145 mmol/L LAB CHEMISTRY METHOD 06/05/2024 12:21 PM [facility] Potassium 5.1 3.5 - 5.5 mmol/L LAB CHEMISTRY METHOD 06/05/2024 12:21 PM [facility] Chloride 108 96 - 110 mmol/L LAB CHEMISTRY METHOD 06/05/2024 12:21 PM [facility] CO2 28 21 - 32 mmol/L LAB CHEMISTRY METHOD 06/05/2024 12:21 PM [facility] Anion Gap 5 3 - 11 LAB CHEMISTRY METHOD 06/05/2024 12:21 PM [facility] Glucose 92 70 - 100 mg/dL LAB CHEMISTRY METHOD 06/05/2024 12:21 PM [facility] BUN 29(H) 5 - 25 mg/dL LAB CHEMISTRY METHOD 06/05/2024 12:21 PM [facility] Creatinine 0.95 0.50 - 1.10 mg/dL LAB CHEMISTRY METHOD 06/05/2024 12:21 PM [facility] eGFR 65 >=60 mL/min/1. 73m2 LAB CHEMISTRY METHOD 06/05/2024 12:21 PM [facility] Comment:Calculation based on the??Chronic Kidney Disease Epidemiology Collaboration (CKD-EPI) equation refit??without adjustment for race. BUN/Creatinine Ratio 30.5 LAB CHEMISTRY METHOD 06/05/2024 12:21 PM [facility] Calcium 8.9 8.5 - 10.5 mg/dL LAB CHEMISTRY METHOD 06/05/2024 12:21 PM [facility] Blood Venous blood specimen / Unknown Venipuncture / Unknown 06/05/2024 8:07 AM EDT 06/05/2024 11:02 AM EDT us Glen Pugh MD LAB BLOOD ORDERABLES Final Result [facility] [address] [place] [address], documented in this encounter Visit Diagnoses Diagnosis Type 2 diabetes mellitus without complications (CMS/HCC V24, CMS/HCC V28) Essential (primary) hypertension Unspecified essential hypertension Atherosclerotic heart disease of [place] coronary artery without angina pectoris Hyperlipidemia, unspecified documented in this encounter Care Teams Timber Deadener Relationship Specialty Start Date End Date Glen Pugh MD [address] [place] [id number] PCP - General 10/14/23 documented as of this encounter
--- OUTSIDE RECORDS SUMMARY | 2024-07-24 12:58 | XMS_ITS | Clinical Summary ---
Author Organization Formerly [facility] Address [address] [place] [address] Care Team Providers Care Aircraft Technician Name Role Phone System, Provider Not In Primary Care Provider Un available Allergies Active Allergy Reactions Criticality Noted Date Comments Adhesives/Tape Itching Low 06/27/2024 Amlodipine Swelling Medium 06/27/2024 Bacitracin Itching Low 06/27/2024 Cefaclor Rash/Dermatitis Low 06/27/2024 Clindamycin GI Intolerance/Nausea/Vomiting Low 11/2024 Doxazosin Anxiety Low 06/27/2024 Erythromycin Base Rash/Dermatitis Low 06/27/2024 Gentamicin Swelling Medium 06/27/2024 Hydrochlorothiazide Itching Low 06/27/2024 Peanuts Rash/Dermatitis Low 06/27/2024 Medications aluminum-magnes ium hydroxide-simet hicone (MYLANTA-MAX) suspension Take 30 mL by mouth 4 times daily (every 6 hours) as needed for indigestion or heartburn. Active amantadine (SYMMETREL) 100 MG capsule Take 1 capsule (100 mg total) by mouth daily. Active bisacodyl (DULCOLAX) 10 MG suppository Insert 1 suppository (10 mg total) into the rectum daily as needed for constipation. Active cholecalciferol (VITAMIN D3) 1000 units capsule Take 2 capsules (2,000 Units total) by mouth daily. Active cyanocobalamin (VITAMIN B-12) 500 MCG tablet Take 1 tablet (500 mcg total) by mouth daily. Active valproic acid (DEPAKENE) 250 MG capsule Take 2 capsules (500 mg total) by mouth every 8 (eight) hours around the clock. Active FLUoxetine (PROzac) 40 MG capsule Take 1 capsule (40 mg total) by mouth daily. Active FLUoxetine (PROzac) 10 MG capsule Take 1 capsule (10 mg total) by mouth daily. Total 50 mg daily Active folic acid (FOLVITE) 1 MG tablet Take 1 tablet (1 mg total) by mouth daily. Active guaiFENesin (MUCINEX) 600 MG 12 hr tablet Take 2 tablets (1,200 mg total) by mouth 2 (two) times a day. Active lisinopril (PRINIVIL,ZeSTR IL) 10 MG tablet Take 1 tablet (10 mg total) by mouth daily. Active loperamide (IMODIUM A-D) 2 MG tablet Take 1 tablet (2 mg total) by mouth 4 (four) times a day as needed for diarrhea. Active mirtazapine (REMERON) 15 MG tablet Take 1 tablet (15 mg total) by mouth nightly. Active nitroglycerin (NITROSTAT) 0.[address] 1 tablet (0.4 mg total) under the tongue every 5 (five) minutes as needed for chest pain. Active phenytoin (DILANTIN) 100 MG ER capsule Take 2 capsules (200 mg total) by mouth 2 (two) times a day. Active polyethylene glycol 17 g packet Take 1 packet (17 g total) by mouth daily as needed for constipation. Active pravastatin (PRAVACHOL) 20 MG tablet Take 1 tablet (20 mg total) by mouth daily. Active senna (SENOKOT) 8.6 MG Tab tablet Take 2 tablets by mouth daily as needed for constipation. Active apixaban (ELIQUIS) 5 MG tablet Take 1 tablet (5 mg total) by mouth 2 (two) times a day. Active hydrALAZINE (APRESOLINE) 50 MG tabletIndicatio ns:Jaundice Take 1 tablet (50 mg total) by mouth every 8 (eight) hours around the clock. 90 tablet 5 025 Active acetaminophen (TYLENOL) 500 MG tablet Take 2 tablets (1,000 mg total) by mouth 4 times daily (every 6 hours) as needed for mild pain, headaches or fever. 025 Discontin ued(Stop Taking at Discharge ) Active Problems Problem Noted Date Diagnosed Date Jaundice 06/27/2024 Encounters Date Type Department Care Team Description 07/02/2024 9:05 AM EDT Anesthesia Event [facility] [address] [place] [phone] Mac Shaw MD Ritchie, Agatha T, PA-C 07/02/2024 9:00 AM EDT - 07/02/2024 9:28 AM EDT Surgery [facility] [address] [place] [address], [place] [phone] Roger Church MD ENDOSCOPY UPPER /C ULTRASOUND 06/29/2024 Travel 06/28/2024 10:41 AM EDT Anesthesia Event [facility] [address] [place] [address], [place] [phone] Selvin Lopez MD Ritchie, Agatha T, PA-C 06/28/2024 10:14 AM EDT - 06/28/2024 10:48 AM EDT Surgery [facility] [address] [place] [address], [place] [phone] Roger Church MD ERCP 06/27/2024 7:30 PM EDT - 07/02/2024 6:43 PM EDT Hospital Encounter [address] [place] [address] Roland Torres MD Moya Tapia, Manuel A, MD Pokhrel, Kamal, MD Jaundice (Primary Dx) Discharge Disposition: Home or Self Care from Last 3 Months Social History Tobacco Use Types Packs/Day Years Used Date Smoking Tobacco: Unknown Tobacco Cessation:Counseling Given: Not Answered Alcohol Use Standard Drinks/Week Comments Not Currently 0 (1 standard drink = 0.6 oz pur e alcohol) [facility] Utilities Answer Date Recorded In the past 12 months has iQiyi, gas, oil, or water Work in Field threatened to shut off services in your home? No 06/29/2024 Overall Financial Resource Strain (CARDIA) Answe r Date Recorded How hard is it for you to pa y for the very basics like food, housing, medical care, and heating? Not very hard 06/29/2024 Hunger Vital Sign Answer Date Recorded Within the past 12 months, y ou worried that your food would run out before you got the money to buy more. Never true 06/30/19 25 Within the past 12 months, t he food you bought just didn't last and you didn't have money to get more. Never true 06/29/2024 PRAPARE - Transportation Answer Date Re corded In the past 12 months, has l ack of transportation kept you from medical appointments or from getting medications? No 06/19 In the past 12 months, has l ack of transportation kept you from meetings, work, or from getting things needed for daily living? No 06/29/2024 Housing Stability Vital Sign Answer Demetrius e Recorded In the last 12 months, was t here a time when you were not able to pay the mortgage or rent on time? No 06/29/2024 In the past 12 months, how m any times have you moved where you were living? 1 06/29/2024 At any time in the past 12 m [facility], were you homeless or living in a long-term (including now)? No 06/29/2024 Comments Unknown Sex and Gender Information Value Date Recorded Sex Assigned at Female 06/29/2024 11:16 AM EDT Legal Sex Female 3:45 PM EDT Gender Identity Female 06/29/2024 11:16 AM EDT Sexual Orientation Heterosexual (straight) 06/29 11:16 AM EDT Last Filed Vital Signs Vital Sign Reading Time Taken Comments Blood Pressure 152/64 07/02/2024 4:02 PM EDT Pulse 71 07/02/2024 10:00 AM EDT Temperature 36.2 ??C (97.2 ??F) 07/02/2024 9:25 AM ED T Respiratory Rate 16 07/02/2024 10:00 AM EDT Oxygen Saturation 95% 07/02/2024 10:00 AM EDT Inhaled Oxygen Concentration - - Weight 74.4 kg (164 lb 0.4 oz) 06/30/2024 5:00 A M EDT Height - - Body Mass Index - - Plan of Treatment Health Maintenance Due Date Last Done Comments Hepatitis C Virus Screening 1955 DTaP/Tdap/Td Vaccines (1 - Tdap) 1973 Mammogram 1994 Colonoscopy 10/24/1999 Pneumococcal Vaccines 50+ (1 of 1 - PCV) 2004 Zoster (Shingles) Vaccine (1 of 2) 2004 DXA Bone Density (Females,Ag es 65 and older) 10/24/2019 Influenza Vaccine 10/20/2023 COVID-19 Vaccine ( - 2023-2 5 season) 2023 RSV Vaccine 60 years and old er and Patients (1 - 1-dose 75+ series) 2029 Hepatitis B Vaccines Aged Out No long er eligible based on patient's age to complete this topic Medical Devices Implanted Type Area Guest Room Inspector Device Identifier Shelf Expiration Date Model / Serial / Lot [id number] Stent Pancreatic 5fr 5cm Pigtail Curve Radopq Push Cath - [id number] Implanted:Qty: 1 on 06/28/2024 by Roger Church MD at [facility] Stent N/A: Bile Duct [employer] [id number] 04/12/2027 [id number] / / [id number] Stent Biliary Cotton-Pineda 10fr 9cm Taper Tip Pstn Sleeve - [id number] Implanted:Qty: 1 on 06/28/2024 by Roger Church MD at [facility] Stent N/A: Bile Duct [employer] [id number] 04/19/2027 [id number] / / [id number] Procedures Procedure Name Priority Date/Time Associated Diagnosis Comments COMPREHENSIVE METABOLIC PANEL Routine 07/02/2024 11:10 AM EDT COMPLETE BLOOD COUNT, WITHOUT DIFFERENTIAL Routine 07/02/2024 11:10 AM EDT ENDOSCOPY UPPER /C ULTRASOUND 07/02/2024 8:59 AM EDT Jaundice PATHOLOGY REPORT Routine 07/02/2024 12:0 0 AM EDT CYTOLOGY REPORT Routine 07/02/2024 12:00 AM EDT COMPREHENSIVE METABOLIC PANEL Routine 06/30/2024 8:23 AM EDT COMPLETE BLOOD COUNT, WITHOUT DIFFERENTIAL Routine 06/30/2024 8:23 AM EDT COMPREHENSIVE METABOLIC PANEL Routine 06/29/2024 9:38 AM EDT COMPLETE BLOOD COUNT, WITHOUT DIFFERENTIAL Routine 06/29/2024 9:38 AM EDT [place] ERCP BILIARY AND PANCREATIC Routine 06/28/2024 11:24 AM EDT CYTOLOGY REPORT Routine 06/28/2024 11:10 AM EDT ERCP 06/28/2024 10:33 AM EDT Jaundice MAGNESIUM Routine 06/28/2024 7:41 AM EDT COMPREHENSIVE METABOLIC PANEL Routine 06/28/2024 7:41 AM EDT COMPLETE BLOOD COUNT, WITH DIFFERENTIAL Routine 06/28/2024 7:41 AM EDT PROTIME-INR Routine 06/27/2024 9:31 PM EDT COMPREHENSIVE METABOLIC PANEL Routine 06/27/2024 9:31 PM EDT COMPLETE BLOOD COUNT, WITH DIFFERENTIAL Routine 06/27/2024 9:31 PM EDT from Last 3 Months Results * (ABNORMAL) Complete Blood Count WITHOUT Differential - IN AM (07/02/2024 11:10 AM EDT) Only the most recent of3 resultswithin the time period is included. White Blood Cell Count 6.4 4.0 - 11.0 Thou/uL 07/02/2024 11:[address] [facility] Platelet Count 299 150 - 450 Thou/uL 07/02/2024 11:58 AM T [facility] Hemoglobin 12.7 11.7 - 15.7 g/dL 07/02/2024 11:[address] [facility] Hematocrit 38.9 35.0 - 47.0 % 07/02/2024 11:[address] [facility] Red Blood Cell Count 3.78(L) 4.00 - 5.40 Mil/uL 07/02/2024 11:[address] [facility] MCV 103(H) 80 - 100 fL 07/02/2024 11:58 AM EDT [facility] MCH 33.6(H) 27.0 - 31.0 pg 07/02/2024 11:[address] [facility] MCHC 32.6 30.0 - 36.0 g/dL 07/02/2024 11:[address] [facility] RDW 13.9 11.5 - 14.5 % 07/02/2024 11:[address] [facility] MPV 10.5 7.5 - 12.5 fL 07/02/2024 11:[address] [facility] Blood Blood specimen / Unknown 07/02/2024 11:10 AM EDT 07/02/2024 11:50 AM EDT Lety Herrera PA-C LAB BLOOD ORDERABLES Monae adler Result [address] [address], [address] [address] * (ABNORMAL) Comprehensive Metabolic Panel (AM) (07/02/2024 11:10 AM EDT) Only the most recent of5 resultswithin the time period is included. Glucose 108(H) 65 - 99 mg/dL 07/02/2024 12:[address] [facility] Comment:Fasting: <100 mg/dL, Non-Fasting: <200 mg/dL (ADA 2004) Blood Urea Nitrogen (BUN) 27(H) 8 - 21 mg/dL 07/02/2024 12:[address] [facility] Creatinine 0.8 0.4 - 1.1 mg/dL 07/02/2024 12:[address] [facility] eGFR 80 >59 07/02/2024 12:[address] [facility] Comment:CKD-EPI (2020) in mL /min/1.73 sq meters. Sodium 136 136 - 145 mmol/L 07/02/2024 12:[address] [facility] Potassium 4.6 3.4 - 5.3 mmol/L 07/02/2024 12:[address] [facility] Chloride 102 98 - 107 mmol/L 07/02/2024 12:18 PM EDT [facility] CO2 25 22 - 33 mmol/L 07/02/2024 12:[address] [facility] Calcium 8.6(L) 8.7 - 10.5 mg/dL 07/02/2024 12:[address] [facility] Alkaline Phosphatase 339(H) 32 - 122 U/L 07/02/2024 12:[address] [facility] Aspartate Aminotrans (AST) 108(H) 10 - 50 U/L 07/02/2024 12:[address] [facility] Alanine Aminotrans (ALT) 108(H) 10 - 50 U/L 07/02/2024 12:[address] [facility] Bilirubin, Total 0.9 0.2 - 1.0 mg/dL 07/02/2024 12:[address] [facility] Protein, Total 6.4 6.3 - 8.3 g/dL 07/02/2024 12:[address] [facility] Albumin 3.6 3.4 - 4.8 g/dL 07/02/2024 12:[address] [facility] BUN/Creatinine Ratio 34(H) 10.0 - 25.0 Ratio 07/02/2024 12:[address] [facility] Globulin 2.8 1.5 - 3.9 g/dL 07/02/2024 12:[address] [facility] Albumin/Globulin Ratio 1.3 1.0 - 3.0 Ratio 07/02/2024 12:[address] [facility] Anion Gap 9 7 - 17 07/02/2024 12:[address] [facility] Blood Blood specimen / Unknown 07/02/2024 11:10 AM EDT 07/02/2024 11:50 AM EDT us Lety Herrera PA-C LAB BLOOD ORDERABLES Monae adler Result [address] [address], [address] [address] * (ABNORMAL) Cytology Report (07/02/2024 12:00 AM EDT) Only the most recent of2 resultswithin the time period is included. Report [facility] CT HP-0254 ?? CLIA ID [id number] [address] [place], [place] ??[address] / [phone] Cytopathology Report PATIENT NAME: ELENO CHANEY [facility] REC NUMBER: [id number] (AGE): 1955 (Age: 68) SPECIMEN NUMBER: [id number] DATE OBTAINED: 07/02/2024 DIAGNOSIS: A. ??PANCREAS, FINE NEEDLE ASPIRATION WITH CELL BLOCK: NON-DIAGNOSTIC. RARE GLANDULAR CELLS REFER TO [id number] ?? tsmd/07/03/2024 Electronicall y Signed Out ? MIRNA DUMONT MD Clinical Diagnosis and History: 2.5 CM PANCREATIC MASS Tissue(s) Submitted: A: Pancreas, Fine Needle Aspiration WITH CELL BLOCK Specimen Description: RECEIVED 20 MLS CLEAR COLORLESS FLUID IN SALINE [1 THINPREP AND CELL BLOCK] 1 SLIDE AND CELL BLOCK TIME IN FORMALIN 11:30 (A) HOSPITAL LAB 07/02/2024 07/02/2024 10:05 AM EDT Comment:Pancreas, Fine Needl e Aspiration WITH CELL BLOCK us Roger Church MD PATHOLOGY/CYTOLOGY ORDERABL ES Final Result HOSPITAL LAB See Below * Pathology (07/02/2024 12:00 AM EDT) Report [facility] CT HP-0254 ?? CLIA ID [id number] [address] [place], [place] ??[address] [phone] Surgical Pathology Report PATIENT NAME: ELENO CHANEY [facility] REC NUMBER: [id number] (AGE): 1955 (Age: 68) SPECIMEN NUMBER: [id number] DATE OBTAINED: 07/02/2024 DIAGNOSIS PANCREATIC HEAD MASS, BIOPSY: ??FRAGMENTS OF PANCREATIC TISSUE WITH FIBROSIS AND GLANDULAR ATROPHY; NEGATIVE FOR MALIGNANCY. ??SEE COMMENT. ?? sc/07/03/2024 Electronically Signed Out ? WANDA FREY MD COMMENT The biopsy consists mainly of blood and a few fragments of fibrotic pancreatic tissue with acinar and ductal atrophy compatible with a chronic pancreatitis. No increase in plasma cells or malignancy is identified. ??Immunohistochemical stain for IMP3 is negative. [id number], [id number] x 1 The tests used in the work-up of this specimen may include Analyte-Specific Reagents (ASRs). ??The Immunopathology/[facility] at [facility] have established the performance characteristics of these reagents. ??They have not been cleared or approved by the [place] Food and Drug Administration (FDA); however, the FDA has determined that such clearance or approval is not necessary for their use. ??All positive controls show appropriate reactivity. ??Pre-analytic variables such as prolonged/shortened ischemic, fixation, or decalcification times may limit assay performance. Clinical Information and History: Procedure: ??Upper EUS. Indications: ??Suspected mass in pancreas on CT scan. Impression: ?? - A mass was identified in the pancreatic head. ??This was staged T2 Nx Mx by endosonographic criteria. ??The staging applies if malignancy is confirmed. ??Fine needle biopsy performed. ?? - One stent was visualized endosonographically in the common bile duct. ?? Tissue(s) Submitted: A: PANCREATIC HEAD, PANCREATIC MASS Gross Description: Specimen is received in formalin labeled per the requisition as pancreatic head, pancreatic mass and consists of johnson-white to red irregular soft tissue which is filtered and measures 1.0 x 0.5 x 0.2 cm in aggregate. ??The tissues are filtered and evenly divided between cassettes A1-A2. ?? HOSPITAL LAB 07/02/2024 07/02/2024 10:41 AM EDT Comment:PANCREATIC HEAD, WALSH CREATIC MASS us Roger Church MD PATHOLOGY/CYTOLOGY ORDERABL ES Final Result HOSPITAL LAB See Below * FL ERCP (06/28/2024 11:24 AM EDT) Anatomical Region Laterality Modality Abdomen Radio Fluoroscop y 06/28/2024 10:3 7 AM EDT Impressions 07/03/2024 12:44 PM EDT Technical assistance and equipment provided by the Department of Radiology during intraoperative fluoroscopy, as above. ??Please see operative report for further details. Narrative 07/03/2024 12:44 PM EDT EXAMINATION: FL ERCP BILIARY AND PANCREATIC CLINICAL INFORMATION: Jaundice. COMPARISON: None available. TECHNIQUE: Fluoroscopy during procedure. 6 mL of Omnipaque 350 was used. FINDINGS: Technical assistance and equipment were provided by the Department of Radiology during intraoperative fluoroscopy for ERCP and stent placement. ??11, limited fluoroscopic spot images are submitted. ??A radiologist was not present during the procedure. Initial image demonstrates the tip of an upper endoscopy tube to project over the right upper quadrant. A plastic stent is then placed, presumably extending from the pancreatic duct to the second portion of the duodenum. No images are submitted imaging contrast within the pancreatic duct. Subsequent images demonstrate contrast within the common hepatic duct and common bile duct, with evidence of stricture involving the common bile duct. Final images demonstrate placement of a plastic biliary stent with its proximal tip in the proximal common hepatic duct and its distal tip in the second portion of duodenum. A small filling defect is seen within the common hepatic duct, nonspecific, possibly representing air, stone, etc. The images are available for review on PACS. TOTAL FLUOROSCOPY TIME: 4.9 minutes. DOSE AREA PRODUCT: 10.3 Gy-cm2 (lagos-centimeter squared) Procedure Note Jose Her MD - 07/03/2024 EXAMINATION: FL ERCP BILIARY AND PANCREATIC CLINICAL INFORMATION: Jaundice. COMPARISON: None available. TECHNIQUE: Fluoroscopy during procedure. 6 mL of Omnipaque 350 was used. FINDINGS: Technical assistance and equipment were provided by the Department of Radiology during intraoperative fluoroscopy for ERCP and stent placement. 11, limited fluoroscopic spot images are submitted. A radiologist was not present during the procedure. Initial image demonstrates the tip of an upper endoscopy tube to project over the right upper quadrant. A plastic stent is then placed, presumably extending from the pancreatic duct to the second portion of the duodenum. No images are submitted imaging contrast within the pancreatic duct. Subsequent images demonstrate contrast within the common hepatic duct and common bile duct, with evidence of stricture involving the common bile duct. Final images demonstrate placement of a plastic biliary stent with its proximal tip in the proximal common hepatic duct and its distal tip in the second portion of duodenum. A small filling defect is seen within the common hepatic duct, nonspecific, possibly representing air, stone, etc. The images are available for review on PACS. TOTAL FLUOROSCOPY TIME: 4.9 minutes. DOSE AREA PRODUCT: 10.3 Gy-cm2 (lagos-centimeter squared) IMPRESSION: Technical assistance and equipment provided by the Department of Radiology during intraoperative fluoroscopy, as above. Please see operative report for further details. Liss OROZCO IMG FLUOROSCOPY ORDERAB LES Final Result * (ABNORMAL) Complete Blood Count, with Differential (06/28/2024 7:41 AM EDT) Only the most recent of2 resultswithin the time period is included. White Blood Cell Count 5.0 4.0 - 11.0 Thou/uL 06/28/2024 9:[address] [facility] Platelet Count 206 150 - 450 Thou/uL 06/28/2024 9:[address] [facility] Hemoglobin 11.1(L) 11.7 - 15.7 g/dL 06/28/2024 9:[address] [facility] Hematocrit 34.2(L) 35.0 - 47.0 % 06/28/2024 9:[address] [facility] Red Blood Cell Count 3.38(L) 4.00 - 5.40 Mil/uL 06/28/2024 9:[address] [facility] MCV 101(H) 80 - 100 fL 06/28/2024 9:[address] [facility] MCH 32.8(H) 27.0 - 31.0 pg 06/28/2024 9:[address] [facility] MCHC 32.5 30.0 - 36.0 g/dL 06/28/2024 9:[address] [facility] RDW 14.0 11.5 - 14.5 % 06/28/2024 9:[address] [facility] MPV 10.9 7.5 - 12.5 fL 06/28/2024 9:[address] [facility] Neutrophils Auto 66.6 % 06/29/19 25 9:[address] [facility] Immature Granulocytes 0.8 % 06/28/2024 9:17 AM EDT [facility] Lymphocytes Auto 16.6 % 06/29/19 9:17 AM EDT [facility] Monocytes Auto 10.2 % [facility] Eosinophils Auto 5.2 % 06/29/19 9:17 AM EDT [facility] Basophils Auto 0.6 % 06/28/2024 9:17 AM EDT [facility] Abs Neutrophils Auto 3.34 2.00 - 7.50 Thou/uL 06/28/2024 9:17 AM EDT [facility] Abs Immature Granulocytes 0.04 0.00 - 0.10 Thou/uL 06/28/2024 9:17 AM EDT [facility] Abs Lymphocytes Auto 0.83(L) 1.50 - 4.50 Thou/uL [facility] Abs Monocytes Auto 0.51 0.20 - 1.50 Thou/uL 06/28/2024 9:17 AM EDT [facility] Abs Eosinophils Auto 0.26 0.00 - 0.70 Thou/uL 06/28/2024 9:17 AM EDT [facility] Abs Basophils Auto 0.03 0.00 - 0.20 Thou/uL 06/28/2024 9:17 AM EDT [facility] Blood Blood specimen / Unknown 06/28/2024 7:41 AM EDT 06/28/2024 8:55 AM EDT Solomon Angel MD LAB BLOOD ORDERABLES Monae adler Result [address] [address], [address] [address] * Magnesium (06/28/2024 7:41 AM EDT) Magnesium 1.9 1.6 - 2.7 mg/dL 06/28/2024 9:41 AM EDT [facility] Blood Blood specimen / Unknown 06/28/2024 7:41 AM EDT 06/28/2024 8:55 AM EDT Solomon Angel MD LAB BLOOD ORDERABLES Monae l Result Performing Organization Address [facility] [place] [address], [place] [address] * (ABNORMAL) Protime-INR (Routine) (06/27/2024 9:31 PM EDT) Anticoagulant APIXABAN (ELIQUIS) 06/27/2024 9:09 PM EDT [facility] Prothrombin Time (PT) 15.6(H) 10.0 - 13.5 seconds 06/27/2024 9:56 PM EDT [facility] INR 1.4 06/27/2024 9:56 PM EDT [facility] Comment:INR Therapeutic Rang es: Standard dose anticoagulant 2.0 to 3.0, High dose anticoagulant 2.5-3.5. Blood Blood specimen / Unknown 06/27/2024 9:31 PM EDT 06/27/2024 9:37 PM EDT Solomon Angel MD LAB BLOOD ORDERABLES Monae l Result Performing Organization Address [facility] Co [place] [address], [place] [address] from Last [address] [place] [address] [place] [address] [facility] [place] [address] [place] [address] [facility] Advance Directives * Full Code (Latest Code Status on File) Date Activated Date Inactivated Comments 06/27/2024 8:13 PM Question Answer Comments Decision Thoroughly Discussed with: Patient Care Teams Aircraft Technician Relationship Specialty Start Date End Date System, Provider Not In PCP - General 06/25/24
--- OUTSIDE RECORDS SUMMARY | 2024-07-24 12:58 | XMS_ITS | Clinical Summary ---
Author Organization [facility] Address [address] [place] [address] Phone Care Team Providers Care Automobile Technician Name Role Phone Glen Pugh MD Primary Care Provider [phone] Encounters Date Type Department Care Team Description 07/17/[address] [facility] Lab [address] [place] [phone] Glen Pugh MD Type 2 diabetes mellitus without complications ([facility]24, [facility] V28); Essential (primary) hypertension; Atherosclerotic heart disease of [place] coronary artery without angina pectoris 06/05/[address] [facility] Lab [address] [place] [phone] Glen Pugh MD Type 2 diabetes mellitus without complications ([facility] V24, [facility] V28); Essential (primary) hypertension; Atherosclerotic heart disease of [place] coronary artery without angina pectoris; Hyperlipidemia, unspecified 05/08/[address] 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; Unspecified convulsions ([facility] V24, [facility] V28); Alcohol use, unspecified with unspecified alcohol-induced disorder ([facility] V24); Atherosclerotic heart disease of [place] coronary artery without angina pectoris; Other pulmonary embolism without acute cor pulmonale ([facility] V24, [facility] V28) from Last 3 Months Social History Tobacco [...] Diabetes: Annual Urine Albumin-Creatinine Ratio (uACR) 03/06/2022 DTaP,Tdap,and Td Vaccines (3 - Td or Tdap) 07/24/2023 07/23/2013, 06/11/2005 COVID-19 Vaccine ( - season) 2023 Influenza Vaccine (Season Ended) 2024 12/26/2013, 04/21/2012, 11/24/2010, Additional history exists Diabetes: Blood Sugar Control Test (HGBA1C) 01/16/2025 07/17/2024 Diabetes: Annual GFR (Glomerular Filtration Rate) 07/17/2025 07/17/2024, 06/05/2024, 05/08/2024 Hypertension/CHF/CAD Annual BMP Blood Test 07/17/2025 07/17/2024, 06/05/2024, 05/08/2024 Breast Cancer Screening 04/16/2026 04/16/19, [...] age to complete this topic Meningococcal B Vaccine Aged Out No l onger eligible based on patient's age to complete [...] Essential (primary) hypertension Atherosclerotic heart disease of [place] coronary artery without angina pectoris COMPREHENSIVE METABOLIC PANEL Routine 07/17/2024 7:14 AM EDT Type 2 diabetes mellitus without complications (CMS/HCC V24, CMS/HCC V28) Essential (primary) hypertension Atherosclerotic heart disease of [place] coronary artery without angina pectoris VITAMIN B12 Routine 06/05/2024 8:07 AM EDT Type 2 diabetes mellitus without complications (CMS/HCC) Essential (primary) hypertension Atherosclerotic heart disease of [place] coronary artery without angina pectoris Hyperlipidemia, unspecified FOLATE Routine 06/05/2024 8:07 AM EDT Type 2 diabetes mellitus without complications (CMS/HCC) Essential (primary) hypertension Atherosclerotic heart disease of [place] coronary artery without angina pectoris Hyperlipidemia, unspecified LIPID PANEL WITH REFLEX TO DIRECT LDL Routine 06/05/2024 8:07 AM EDT Type 2 diabetes mellitus without complications (CMS/HCC) Essential (primary) hypertension Atherosclerotic heart disease of [place] coronary artery without angina pectoris Hyperlipidemia, unspecified BASIC METABOLIC PANEL Routine 06/05/2024 8:07 AM EDT Type 2 diabetes mellitus without complications (CMS/HCC) Essential (primary) hypertension Atherosclerotic heart disease of [place] coronary artery without angina pectoris Hyperlipidemia, unspecified VALPROIC ACID LEVEL, TOTAL Routine 05/08/2024 5:45 AM EST Essential (primary) hypertension Type 2 diabetes mellitus without complications (CMS/HCC) Other fdc (current) 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 Unspecified convulsions (CMS/HCC) Alcohol use, 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) Atherosclerotic heart disease of [place] coronary artery without angina pectoris Other pulmonary embolism without acute cor pulmonale (CMS/HCC) PHENYTOIN LEVEL, TOTAL Routine 05/08/2024 5:45 AM EST Essential (primary) hypertension Type 2 diabetes mellitus without complications (CMS/HCC) Other termination clerk (current) 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 Unspecified convulsions (CMS/HCC) Alcohol use, 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) Atherosclerotic heart disease of [place] coronary artery without angina pectoris Other pulmonary embolism without acute cor pulmonale (CMS/HCC) HEPATIC FUNCTION PANEL Routine 05/08/2024 5:45 AM EST Essential (primary) hypertension Type 2 diabetes mellitus without complications (CMS/HCC) Other termination clerk (current) 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 Unspecified convulsions (CMS/HCC) Alcohol use, 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) Atherosclerotic heart disease of [place] coronary artery without angina pectoris Other pulmonary embolism without acute cor pulmonale (CMS/HCC) BASIC METABOLIC PANEL Routine 05/08/2024 5:45 AM EST Essential (primary) hypertension Type 2 diabetes mellitus without complications (CMS/HCC) Other termination clerk (current) 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 Unspecified convulsions (CMS/HCC) Alcohol use, 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) Atherosclerotic heart disease of [place] coronary artery without angina pectoris Other pulmonary embolism without acute cor pulmonale (CMS/HCC) COMPLETE BLOOD COUNT Routine 05/08/2024 5:45 AM EST Essential (primary) hypertension Type 2 diabetes mellitus without complications (CMS/HCC) Other termination clerk (current) 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 Unspecified convulsions (CMS/HCC) Alcohol use, 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) Atherosclerotic heart disease of [place] coronary artery without angina pectoris Other pulmonary embolism without acute cor pulmonale (CMS/HCC) MG MAMMO DIGITAL SCREENING W SULAIMAN BILAT Routine 04/16/2024 9:35 AM EST Encounter for screening mammogram for breast cancer BD BONE DENSITY DXA AXIAL SKELETON Routine 03/08/2024 9:52 AM EST Metabolic bone disease from Last 3 Months or Most Recently Relevant to Health Maintenance Results * Hemoglobin A1c (07/17/2024 7:14 AM EDT) Hemoglobin A1C 5.5 <6.5 % LAB CHEMISTRY METHOD 07/17/2024 12:50 PM EDT [facility] Mean Bld Glu Estim. 111 mg/dL LAB CHEMISTRY METHOD 07/17/2024 12:50 PM EDT [facility] Blood Venous blood specimen / Unknown Venipuncture / Unknown 07/17/2024 7:14 AM EDT 07/17/2024 9:29 AM EDT Glen Pugh MD LAB BLOOD ORDERABLES Final Result [facility] [address] [place] [address], * (ABNORMAL) Comprehensive metabolic panel (07/17/2024 7:14 AM EDT) Sodium 141 133 - 145 mmol/L LAB CHEMISTRY METHOD 07/17/2024 11:03 AM [facility] Potassium 4.7 3.5 - 5.5 mmol/L LAB CHEMISTRY METHOD 07/17/2024 11:03 AM [facility] Chloride 109 96 - 110 mmol/L LAB CHEMISTRY METHOD 07/17/2024 11:03 AM [facility] CO2 26 21 - 32 mmol/L LAB CHEMISTRY METHOD 07/17/2024 11:03 AM [facility] Anion Gap 6 3 - 11 LAB CHEMISTRY METHOD 07/17/2024 11:03 AM [facility] Glucose 71 70 - 100 mg/dL LAB CHEMISTRY METHOD 07/17/2024 11:03 AM [facility] BUN 21 5 - 25 mg/dL LAB CHEMISTRY METHOD 07/17/2024 11:03 AM [facility] Creatinine 0.87 0.50 - 1.10 mg/dL LAB CHEMISTRY METHOD 07/17/2024 11:03 AM [facility] eGFR 72 >=60 mL/min/1. 73m2 LAB CHEMISTRY METHOD 07/17/2024 11:03 AM [facility] Comment:Calculation based on the??Chronic Kidney Disease Epidemiology Collaboration (CKD-EPI) equation refit??without adjustment for race. BUN/Creatinine Ratio 24.1 LAB CHEMISTRY METHOD 07/17/2024 11:03 AM [facility] Calcium 8.5 8.5 - 10.5 mg/dL LAB CHEMISTRY METHOD 07/17/2024 11:03 AM [facility] AST (SGOT) 27 10 - 42 unit/L LAB CHEMISTRY METHOD 07/17/2024 11:03 AM [facility] ALT (SGPT) 31 10 - 60 unit/L LAB CHEMISTRY METHOD 07/17/2024 11:03 AM [facility] Alkaline Phosphatase 155(H) 42 - 121 unit/L LAB CHEMISTRY METHOD 07/17/2024 11:03 AM [facility] Total Protein 6.0 6.0 - 8.0 g/dL LAB CHEMISTRY METHOD 07/17/2024 11:03 AM [facility] Albumin 3.0(L) 3.2 - 5.0 g/dL LAB CHEMISTRY METHOD 07/17/2024 11:03 AM [facility] Total Bilirubin 0.4 0.0 - 1.4 mg/dL LAB CHEMISTRY METHOD 07/17/2024 11:03 AM [facility] Blood Venous blood specimen / Unknown Venipuncture / Unknown 07/17/2024 7:14 AM EDT 07/17/2024 9:29 AM EDT Glen Pugh MD LAB BLOOD ORDERABLES Final Result [facility] [address] [place] [address], * Lipid panel with reflex to direct LDL (06/05/2024 8:07 AM EDT) Cholesterol 159 0 - 200 mg/dL LAB CHEMISTRY METHOD 06/05/2024 12:47 PM [facility] Triglycerides 99 0 - 150 mg/dL LAB CHEMISTRY METHOD 06/05/2024 12:47 PM [facility] HDL 78 >=40 mg/dL LAB CHEMISTRY METHOD 06/05/2024 12:47 PM [facility] LDL Calculated 61 0 - 100 mg/dL LAB CHEMISTRY METHOD 06/05/2024 12:47 PM EDT [facility] VLDL Cholesterol Irvin 19.8 mg/dL LAB CHEMISTRY METHOD 06/05/2024 12:47 PM EDT [facility] Non HDL Chol. (LDL+VLDL) 81 <145 mg/dL LAB CHEMISTRY METHOD 06/05/2024 12:47 PM EDT [facility] Chol/HDL Ratio 2.0 0.0 - 4.4 LAB CHEMISTRY METHOD 06/05/2024 12:47 PM EDT [facility] Blood Venous blood specimen / Unknown Venipuncture / Unknown 06/05/2024 8:07 AM EDT 06/05/2024 11:02 AM EDT us Glen Pugh MD LAB BLOOD ORDERABLES Final Result [facility] [address] [place] [address], * (ABNORMAL) Folate (06/05/2024 8:07 AM EDT) Folate >20.0(H) 2.8 - 17.0 ng/ml LAB CHEMISTRY METHOD 06/05/2024 12:47 PM EDT [facility] Blood Venous blood specimen / Unknown Venipuncture / Unknown 06/05/2024 8:07 AM EDT 06/05/2024 11:02 AM EDT us Glen Pugh MD LAB BLOOD ORDERABLES Final Result [facility] [address] [place] [address], [place] [phone] * (ABNORMAL) Vitamin B12 (06/05/2024 8:07 AM EDT) Vitamin B-12 1,075(H) 250 - 900 pcg/mL LAB CHEMISTRY METHOD 06/05/2024 12:47 PM [facility] Blood Venous blood specimen / Unknown Venipuncture / Unknown 06/05/2024 8:07 AM EDT 06/05/2024 11:02 AM EDT Glen Pugh MD LAB BLOOD ORDERABLES Final Result [facility] [address] [place] [address], * (ABNORMAL) Basic metabolic panel (06/05/2024 8:07 AM EDT) Only the most recent of2 resultswithin the time period is included. Sodium 141 133 - 145 mmol/L LAB CHEMISTRY METHOD 06/05/2024 12:21 PM [facility] Potassium 5.1 3.5 - 5.5 mmol/L LAB CHEMISTRY METHOD 06/05/2024 12:21 PM [facility] Chloride 108 96 - 110 mmol/L LAB CHEMISTRY METHOD 06/05/2024 12:21 PM [facility] CO2 28 21 - 32 mmol/L LAB CHEMISTRY METHOD 06/05/2024 12:21 PM [facility] Anion Gap 5 3 - 11 LAB CHEMISTRY METHOD 06/05/2024 12:21 PM [facility] Glucose 92 70 - 100 mg/dL LAB CHEMISTRY METHOD 06/05/2024 12:21 PM [facility] BUN 29(H) 5 - 25 mg/dL LAB CHEMISTRY METHOD 06/05/2024 12:21 PM [facility] Creatinine 0.95 0.50 - 1.10 mg/dL LAB CHEMISTRY METHOD 06/05/2024 12:21 PM [facility] eGFR 65 >=60 mL/min/1. 73m2 LAB CHEMISTRY METHOD 06/05/2024 12:21 PM [facility] Comment:Calculation based on the??Chronic Kidney Disease Epidemiology Collaboration (CKD-EPI) equation refit??without adjustment for race. BUN/Creatinine Ratio 30.5 LAB CHEMISTRY METHOD 06/05/2024 12:21 PM EDT [facility] Calcium 8.9 8.5 - 10.5 mg/dL LAB CHEMISTRY METHOD 06/05/2024 12:21 PM EDT [facility] Blood Venous blood specimen / Unknown Venipuncture / Unknown 06/05/2024 8:07 AM EDT 06/05/2024 11:02 AM EDT us Glen Pugh MD LAB BLOOD ORDERABLES Final Result [facility] [address] [place] [address], * (ABNORMAL) Complete blood count (05/08/2024 5:45 AM EST) WBC 5.0 4.8 - 10.8 K/mcL LAB HEMETOLOGY METHOD 05/08/2024 1:27 PM EST [facility] RBC 3.50(L) 3.80 - 4.80 M/mcL LAB HEMETOLOGY METHOD 05/08/2024 1:27 PM EST [facility] Hemoglobin 11.7 11.5 - 16.0 g/dL LAB HEMETOLOGY METHOD 05/08/2024 1:27 PM EST [facility] Hematocrit 36.8 35.0 - 47.0 % LAB HEMETOLOGY METHOD 05/08/2024 1:27 PM [facility] MCV 105.4(H) 79.0 - 98.0 FL LAB HEMETOLOGY METHOD 05/08/2024 1:27 PM [facility] MCH 33.5(H) 27.0 - 32.0 pcg LAB HEMETOLOGY METHOD 05/08/2024 1:27 PM [facility] MCHC 31.8(L) 32.0 - 37.0 g/dL LAB HEMETOLOGY METHOD 05/08/2024 1:27 PM EST [facility] RDW 13.5 11.0 - 15.0 % LAB HEMETOLOGY METHOD 05/08/2024 1:27 PM EST [facility] Platelets 234 130 - 400 K/mcL LAB HEMETOLOGY METHOD 05/08/2024 1:27 PM EST [facility] MPV 10.4 7.0 - 11.0 FL LAB HEMETOLOGY METHOD 05/08/2024 1:27 PM EST [facility] NRBC 0.0 <1.0 % LAB HEMETOLOGY METHOD 05/08/2024 1:27 PM EST [facility] NRBC Absolute 0.00 <0.10 K/mcL LAB HEMETOLOGY METHOD 05/08/2024 1:27 PM EST [facility] Blood Venous blood specimen / Unknown Venipuncture / Unknown 05/08/2024 5:45 AM EST 05/08/2024 12:00 PM EST us Glen Pugh MD LAB BLOOD ORDERABLES Final Result Performing Organization Address City/State/[facility] Co de Phone Number [facility] [address] [place] [address], * Phenytoin level total (05/08/2024 5:45 AM EST) Phenytoin Level 13.2 10.0 - 20.0 mcg/mL LAB CHEMISTRY METHOD 05/08/2024 12:00 PM EST [facility] Blood Venous blood specimen / Unknown Venipuncture / Unknown 05/08/2024 5:45 AM EST 05/08/2024 12:00 PM EST us Glen Pugh MD LAB BLOOD ORDERABLES Final Result [facility] [address] [place] [address], [place] [phone] * (ABNORMAL) Valproic acid level, total (05/08/2024 5:45 AM EST) [facility] Valproic Acid, Total 42(L) 50 - 100 mcg/mL LAB CHEMISTRY METHOD 05/08/2024 12:00 PM [facility] Blood Venous blood specimen / Unknown Venipuncture / Unknown 05/08/2024 5:45 AM EST 05/08/2024 12:00 PM EST Glen Pugh MD LAB BLOOD ORDERABLES Final Result Performing Organization Address City/[facility]/ZIP Co de Phone Number [facility] [address] [place] [address], [place] [phone] * (ABNORMAL) Hepatic function panel (05/08/2024 5:45 AM EST) [facility] Total Protein 6.1 6.0 - 8.0 g/dL LAB CHEMISTRY METHOD 05/08/2024 12:00 PM [facility] Albumin 3.0(L) 3.2 - 5.0 g/dL LAB CHEMISTRY METHOD 05/08/2024 12:00 PM [facility] Total Bilirubin 0.2 0.0 - 1.4 mg/dL LAB CHEMISTRY METHOD 05/08/2024 12:00 PM [facility] Bilirubin, Direct <0.1 0.0 - 0.3 mg/dL LAB CHEMISTRY METHOD 05/08/2024 12:00 PM [facility] Bilirubin, Indirect LAB CHEMISTRY METHOD 05/08/2024 12:00 PM [facility] Comment:Unable to calculate Indirect Bilirubin. ALT (SGPT) 22 10 - 60 unit/L LAB CHEMISTRY METHOD 05/08/2024 12:00 PM [facility] AST (SGOT) 23 10 - 42 unit/L LAB CHEMISTRY METHOD 05/08/2024 12:00 PM EST [facility] Comment:Hemolysis present Alkaline Phosphatase 98 42 - 121 unit/L LAB CHEMISTRY METHOD 05/08/2024 12:00 PM EST [facility] Blood Venous blood specimen / Unknown Venipuncture / Unknown 05/08/2024 5:45 AM EST 05/08/2024 12:00 PM EST us Glen Pugh MD LAB BLOOD ORDERABLES Final Result [facility] [address] [place] [address], * MG Mammo Digital Screening w Sulaiman bilat (04/16/2024 9:35 AM EST) Anatomical Region Laterality Modality Breast Bilateral Mammography 04/16/2024 9:33 AM EST Impressions 04/16/2024 9:37 AM EST No mammographic evidence of malignancy. A negative mammogram in the presence of a clinically suspicious palpable abnormality does not preclude the possibility of malignancy or alter the indications for biopsy. PQRI CPT II 3342F Code 31994, 37843 PQRI 225 CPT II 7025F TISSUE DENSITY: There are scattered areas of fibroglandular density. (BI-RADS category B) IMPRESSION: Benign. BI-RADS CATEGORY: 2 - BENIGN RECOMMENDATION: Screening bilateral mammogram is recommended in 1 year. Mammo Location: [facility], [address] [place] [id number] -------- FINAL REPORT -------- Dictated By: Vitaly Ho Dictated Date: 04/16/2024 09:33 ET Assigned Physician: Vitaly Ho Reviewed and Electronically Signed By: Vitaly Ho Signed Date: 04/16/2024 09:37 ET Workstation ID: [id number] Transcribed By: Self Edit Transcribed Date: 04/16/2024 09:33 ET Narrative 04/16/2024 9:37 AM EST CLINICAL: The patient is a 68 years Female presenting for routine screening mammography. COMPARISON: 04/14/2023. ?? TECHNIQUE: Full-field digital mammography of the breasts bilaterally consisting of tomosynthesis in MLO and CC projection is performed in the BLUEPHOENIXographe 2000-D unit. ??Computer aided detection utilizing the [...] MLO and CC projection is performed in theBLUEPHOENIXographMaktoob 2000-D unit. Computer aided detection utilizing the iCADsystem was utilized. FINDINGS: The breasts are again [...] for biopsy. PQRI CPT II 3342F Code 67283, 93608 PQRI 225 CPT II 7025F TISSUE DENSITY: There are scattered areas of fibroglandular density.(BI-RADS category B) IMPRESSION: Benign. BI-RADS CATEGORY: 2 - BENIGN RECOMMENDATION: Screening bilateral mammogram is recommended in 1 year. Mammo Location: [facility], [address] [place] [id number] -------- FINAL REPORT -------- Dictated By: Vitaly Ho Dictated Date: 04/16/2024 09:33 ET Assigned Physician: Vitaly Ho Reviewed and Electronically Signed By: Vitaly Ho Signed Date: 04/16/2024 09:37 ET Workstation ID: [id number] Transcribed By: Self Edit Transcribed Date: 04/16/2024 [...] probability of hip fracture of 11.1%. Code 12026 -------- FINAL REPORT -------- Dictated By: Vitaly Ho Dictated Date: 03/08/2024 11:05 ET Assigned Physician: Vitaly Ho Reviewed and Electronically Signed By: Vitaly Ho Signed Date: 03/08/2024 11:08 ET Workstation ID: [id number] Transcribed By: Self Edit Transcribed Date: 03/08/2024 [...] bone mineral density at L1-3 is 0.991 gm/ri3obadw is 85% of that of young normals [...] probability of hip fracture of 11.1%. Code 85599 -------- FINAL REPORT -------- Dictated By: Vitaly Ho Dictated Date: 03/08/2024 11:05 ET Assigned Physician: Vitaly Ho Reviewed and Electronically Signed By: Vitaly Ho Signed Date: 03/08/2024 11:08 ET Workstation ID: [id number] Transcribed By: Self Edit Transcribed Date: 03/08/2024 11:05 ET Glen Pugh MD IMG DXA PROCEDURES Final R esult from Last 3 Months or Most Recently Relevant to Health Maintenance Insurance [place]ICA[place] [employer] MEDICARE ADVANTAGE [employer] MEDICARE Care Teams Automobile Technician Relationship Specialty Start Date End Date Glen Pugh MD [address] [place] [address] PCP - General 10/14/23
[2024-07-24] MEDS: Piperacillin Sodium/Tazobactam 4.5 GM in 0.9 % Sodium Chloride 100 ML IV (13:24)
[2024-07-24 14:00] VITALS: BP 119/51; PULSE 71; RESP 16; O2SAT 97
[2024-07-24 14:15] VITALS: TEMP 36.9
[2024-07-24 14:32] VITALS: BP 115/53; PULSE 71; RESP 16; TEMP 36.9; O2SAT 97
[2024-07-24 17:00] LABS: Alkaline Phosphatase 246 U/L (39-117)
== END 2024-07-24 14:34 | disposition short-term general hospital (02) ==
PROVIDERS: Emergency Provider Emergency Medicine Emergency Medical Services; PCP Internal Medicine
DX: R17 Unspecified jaundice (principal); K83.09 Other cholangitis; R50.9 Fever, unspecified; R60.0 Localized edema; R07.9 Chest pain, unspecified; R53.1 Weakness; I12.9 Hypertensive chronic kidney disease with stage 1 through stage 4 chronic kidney disease, or unspecified chronic kidney disease; N18.30 Chronic kidney disease, stage 3 unspecified; E78.5 Hyperlipidemia, unspecified; F17.210 Nicotine dependence, cigarettes, uncomplicated; Z86.711 Personal history of pulmonary embolism; Z79.01 Long term (current) use of anticoagulants; Z79.899 Other long term (current) 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
CPT/HCPCS: 36415; 71045; 71275; 74177; 80053; 83605; 83690; 83735; 83880; 84484; 85025; 85610; 87040; 93005; 96374; 99285; J2543; Q9967

== ENCOUNTER → 2024-07-24 10:46 | Outpatient (BNV) | payer MEDICARE, MEDICAID, SELFPAY | PROVIDERS: Emergency Provider Emergency Medicine Emergency Medical Services; PCP Internal Medicine; Visit Provider Internal Medicine | DX: R94.31 Abnormal electrocardiogram [ECG] [EKG] (principal); R42 Dizziness and giddiness | CPT/HCPCS: 93010 ==

== ENCOUNTER → 2024-07-24 10:47 | Outpatient (BNV) | payer MEDICARE, MEDICAID, SELFPAY | PROVIDERS: Emergency Provider Emergency Medicine Emergency Medical Services; Visit Provider Radiology Diagnostic Radiology | DX: R18.8 Other ascites (principal); R07.9 Chest pain, unspecified; R55 Syncope and collapse | CPT/HCPCS: 71045; 71275; 74177 ==

== ENCOUNTER 2024-08-29 11:18 | Emergency (ER) | payer MEDICARE, MEDICAID, SELFPAY ==
--- NOTE | ~2024-08-29 | US_ITS ---
EXAMINATION: US TRIPLEX LOWER EXTREMITY, BILATERAL CLINICAL INFORMATION: Bilateral ankle edema COMPARISON: None available. TECHNIQUE: Color-flow triplex imaging with spectral analysis and compression Doppler were performed on the bilateral lower extremities. FINDINGS: Respiratory variation, normal compression and augmented flow are noted throughout the bilateral lower extremities. The visualized common femoral vein, superficial femoral vein, profunda femoral vein, popliteal vein and midcalf peroneal and posterior tibial venous segments show no evidence of deep venous thrombosis bilaterally. US/US venous duplex LE BI IMPRESSION: No evidence of deep venous thrombosis involving the bilateral lower extremities. Electronically signed by: Sesar Ward MD 08/29/2024 01:26 PM EDT
--- NOTE | 2024-08-29 11:25 | ED.GENADULT ---
HPI - General Adult General Chief complaint: General Medical Stated complaint: SHI ANKLE SWELLING PER EMS Time Seen by Provider: 08/29/24 11:25 Source: patient Mode of arrival: EMS Limitations: no limitations History of Present Illness ED Provider: Roque Lopez PA-C HPI narrative: 68-year-old female with medical history of HLD, HTN, hypothyroidism, CKDIII, Parkinson's disease, T2DM, CAD, hx of PE not on AC, CHF presents to the ED today due to B/L ankle swelling. Patient states nurses from her facility noticed B/ L ankle swelling today and called EMS. On chart review patient was admitted to [facility] due to CBD stricture / near complete obstruction with attempt at placing a stent. procedure was unsuccessful and patient was transferred to [facility]. Patient is not aware of what exact procedure was done at [facility]. Patient does not have any physical complaints at this time. Denies chest pain, shortness of breath, abdominal pain, nausea, vomiting, headaches, dizziness, lightheadedness, cough. MD complaint: B/L ankle swelling Onset (ago): hour(s) Location: lower extremity (B/L ankles) Radiation: non-radiation Severity: mild Associated symptoms: denies other symptoms Related Data Home Medications ?Medication ?Instructions ?Recorded ?Confirmed divalproex 250 mg tablet,delayed 3 tab PO BID 01/26/21 06/21/24 release fluoxetine 40 mg capsule 1 cap PO DAILY 01/26/21 06/21/24 folic acid 1 mg tablet 1 tab PO DAILY 01/26/21 06/21/24 pravastatin 20 mg tablet 1 tab PO BEDTIME 01/26/21 06/21/24 nitroglycerin 0.4 mg sublingual 0.4 mg sublingual Q5M PRN Chest 06/03/22 06/21/24 tablet Pain phenytoin sodium extended 100 mg 2 tab PO BID 06/03/22 06/21/24 capsule amantadine HCl 100 mg tablet 100 mg PO DAILY 12/09/22 06/21/24 gabapentin 100 mg capsule 100 mg PO BID 07/28/23 06/21/24 sennosides 8.6 mg tablet (senna) 17.2 mg PO BEDTIME 07/28/23 06/21/24 bisacodyl 10 mg rectal suppository 10 mg AK DAILY PRN Constipation 01/11/24 06/21/24 cholecalciferol (vitamin D3) 50 50 mcg PO DAILY 01/11/24 06/21/24 mcg (2,000 unit) capsule cyanocobalamin (vitamin B-12) 500 500 mcg PO DAILY 01/11/24 06/21/24 mcg tablet docusate sodium 100 mg capsule 100 mg PO BID 01/11/24 06/21/24 (Colace) lisinopril 10 mg tablet 10 mg PO DAILY 01/11/24 06/21/24 loperamide 2 mg capsule 2 mg PO Q6H PRN Loose Stool 01/11/24 06/21/24 (Anti-Diarrheal (loperamide)) magnesium hydroxide 400 mg/5 mL 30 ml PO DAILY PRN Constipation 01/11/24 06/21/24 oral suspension (Milk of Magnesia) acetaminophen 500 mg tablet 1,000 mg PO Q6H PRN Pain (Scale 02/03/24 06/21/24 Score 1-3) aluminum-mag hydroxide-simethicone 30 ml PO DAILY PRN GI Distress 02/03/24 06/21/24 200 mg-200 mg-20 mg/5 mL oral susp (Mintox) mirtazapine 15 mg tablet 15 mg PO BEDTIME 02/03/24 06/21/24 fluoxetine 10 mg capsule 10 mg PO DAILY 05/25/24 06/21/24 guaifenesin 100 mg/5 mL oral liquid 200 mg PO Q4H PRN Cough 06/21/24 06/21/24 guaifenesin 600 mg tablet, 600 mg PO BID PRN Cough 06/21/24 06/21/24 extended release 12 hr (Mucinex) Previous Rx's ?Medication ?Instructions ?Recorded polyethylene glycol 3350 17 17 g PO DAILY 30 days #510 grams 04/29/23 gram/dose oral powder (Miralax) apixaban 5 mg tablet 5 mg PO BID #180 tabs 02/06/24 furosemide 20 mg tablet 20 mg PO DAILY 5 days #5 tabs 08/29/24 Allergies Allergy/AdvReac Type Severity Reaction Status Date / Time adhesive tape Allergy Unknown hives Verified 08/29/24 11:43 amlodipine [From Norvasc] Allergy Unknown Swelling Verified 08/29/24 11:43 od hands/feet azithromycin [AZITHROMYCIN] Allergy Unknown HIVES Verified 08/29/24 11:43 bacitracin [From Cortisporin] Allergy Unknown Eye Verified 08/29/24 11:43 irritation brompheniramine Allergy Unknown Body Rash Verified 08/29/24 11:43 [From Dimetapp Cold-Allergy (PE)] calcium [From DHEA] Allergy Unknown Unknown Verified 08/29/24 11:43 calcium carbonate [From DHEA] Allergy Unknown Unknown Verified 08/29/24 11:43 cefaclor Allergy Unknown Perineum Verified 08/29/24 11:43 rash chlorpheniramine Allergy Unknown Body Rash Verified 08/29/24 11:43 [From Fedahist] clindamycin Allergy Unknown GI Verified 08/29/24 11:43 upset/pain/vomiting devil's claw Allergy Unknown unsure Verified 08/29/24 11:43 reaction dexbrompheniramine Allergy Unknown Body Rash Verified 08/29/24 11:43 [From Drixoral] diphenhydramine Allergy Unknown Body Rash Verified 08/29/24 11:43 [From Benadryl] doxazosin Allergy Unknown Extreme Verified 08/29/24 11:43 anxiety erythromycin base Allergy Unknown Perineum Verified 08/29/24 11:43 rash garlic Allergy Unknown Unknown Verified 08/29/24 11:43 gentamicin [From Garamycin] Allergy Unknown [eye Verified 08/29/24 11:43 drops] Eye swelling ginkgo biloba Allergy Unknown piercing Verified 08/29/24 11:43 pain in head guaifenesin [From Fedahist] Allergy Unknown Body Rash Verified 08/29/24 11:43 hydralazine Allergy Unknown Swelling Verified 08/29/24 11:43 of feet/legs hydrochlorothiazide Allergy Unknown Itchy palms Verified 08/29/24 11:43 hydrocortisone Allergy Unknown Eye Verified 08/29/24 11:43 [From Cortisporin] irritation Macrolide Antibiotics Allergy Unknown Unknown Verified 08/29/24 11:43 meclizine Allergy Unknown very dry Verified 08/29/24 11:43 mouth methylsulfonylmethane Allergy Unknown Itchy palms Verified 08/29/24 11:43 [From MSM] nebivolol [From Bystolic] Allergy Unknown Swelling Verified 08/29/24 11:43 of feet/ legs neomycin [From Cortisporin] Allergy Unknown Eye Verified 08/29/24 11:43 irritation nifedipine [From Procardia] Allergy Unknown Swelling Verified 08/29/24 11:43 of feet and legs nut - unspecified Allergy Unknown mouth sores Verified 08/29/24 11:43 Peanut Butter Allergy Unknown mouth sores Verified 08/29/24 11:43 penicillin V Allergy Unknown Body rash Verified 08/29/24 11:43 Penicillins Allergy Unknown body rash Verified 08/29/24 11:43 phenylephrine Allergy Unknown Body Rash Verified 08/29/24 11:43 [From Dimetapp Cold-Allergy (PE)] polymyxin B Allergy Unknown Eye Verified 08/29/24 11:43 [From Cortisporin] irritation prasterone (DHEA) [From DHEA] Allergy Unknown Unknown Verified 08/29/24 11:43 propoxyphene [From Darvon] Allergy Unknown Unknown Verified 08/29/24 11:43 pseudoephedrine Allergy Unknown Body Rash Verified 08/29/24 11:43 [From Drixoral] shellfish derived Allergy Unknown itchy body Verified 08/29/24 11:43 Sulfa (Sulfonamide Allergy Unknown Itchy palms Verified 08/29/24 11:43 Antibiotics) sulfamethoxazole Allergy Unknown itchy palms Verified 08/29/24 11:43 [From Bactrim] trimethoprim [From Bactrim] Allergy Unknown itchy palms Verified 08/29/24 11:43 prednisone Allergy Flushing Verified 08/29/24 11:43 tetracycline Allergy Unknown Verified 08/29/24 11:43 Carditone Allergy Unknown Swelling Uncoded 08/29/24 11:43 of feet/legs; itchy body Review of Systems Review of Systems: CONST: Negative for fever, body aches and chills. HENT: Negative for neck pain/stiffness, headache, congestion, sore throat, swelling. EYES: Negative for discharge/pain or vision changes. RESP: Negative for cough/hemoptysis and shortness of breath. CV: Negative chest pain, difficulty breathing, palpitations. ABD: Negative pain, nausea, vomiting. : Negative increase frequency, dysuria, blood in urine or stool. MUSC: Negative for muscle aches. POS B/L pitting edema of ankles. SKIN: Negative rash, lesions/sores. NEURO: Negative headache, dizziness, weakness. Yes all other systems are reviewed and are negative PMFSH Past Medical History Attestation statement: The following information was validated with the patient. Source: old records reviewed and nursing notes reviewed Medical History Fall Dyslipidemia Colonoscopy refused Osteoporosis Hypothyroid HTN (hypertension) Aortic insufficiency Osteopenia CKD (chronic kidney disease) stage 3, GFR 30-59 ml/min Mitral valve disorder Parkinson's disease without dyskinesia Seizure Parkinson's disease Hx of fracture of femur History of alcohol abuse Diabetes History of encephalopathy History of traumatic subdural hematoma Tobacco dependence Atherosclerotic cardiovascular disease Non-rheumatic aortic stenosis Preoperative cardiovascular examination Myocardial infarct History of coronary artery disease Seizure disorder Hypertension Fall Surgical History History of breast biopsy History of tubal ligation History of hip surgery Family History Family History Mother No problems noted. Father No problems noted. Social History Social History Household Members: Other Housing: Other Housing Other:: care home home Do you presently have visiting nurse or other home services: No Alcohol intake: never Patient Tobacco Use Status: Current everyday Tobacco user Tobacco use type: Cigarette Cigarette Packs Per Day: 1 Cigarettes Per Day: 4 Years Smoked: 40 Second Hand Smoke Exposure: No Use of substances other than those prescribed or required for medical reasons: No Advance Directives: Yes Advance Directives on File: Yes Advance Directives Date on File: 01/26/21 Do you have a plan to hurt others: No Plan service: No Current occupational status: disabled 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 HEENT: ?NC, AT. MMM. EOMI, clear conjunctiva, oropharynx clear. NECK: ?Supple without lymphadenopathy.? No stiffness or restricted ROM. HEART:? Normal rate and regular rhythm, normal S1/S1, no m/r/g LUNGS:? CTAB, moving air well. No crackles, rales or wheezes heard. ABDOMEN: ?Soft, nontender, nondistended with good bowel sounds heard. BACK: No CVAT, no obvious deformity. EXTREMITIES: ?Without cyanosis, clubbing. 1+ pitting edema of B/L ankles, no skin breakdown, no weeping, no erythema, no warmth. NEUROLOGICAL: ?Grossly nonfocal. Alert and oriented, moving all 4 extremities. No ataxic gait. Skin: ?Warm and dry without rash. Medical Decision Making Medical Decision Making [facility] Narrative: 68-year-old female with medical history of HLD, HTN, hypothyroidism, CKDIII, Parkinson's disease, T2DM, CAD, hx of PE not on AC, CHF presents to the ED today due to B/L ankle swelling. Patient states her home nurses noticed B/ L ankle swelling today and called EMS. On chart review patient was admitted to [facility] 06[place] due to CBD stricture / near complete obstruction with attempt at placing a stent. procedure was unsuccessful and patient was transferred to [facility]. Patient does not have any physical complaints at this time. VSS, in no acute distress, nontoxic appearing. EKG does not reveal any ST elevation/depressions, T-wave abnormalities. Awaiting initial troponin. Awaiting lab results. Physical exam reveals 1+ pitting edema over bilateral anterior tibialis to distal ankles. No skin breakdown, no weeping, no warmth, no erythema. Ultrasound venous duplex of bilateral lower extremities does not reveal DVT. Course 17:16- labs unremarkable, without significant elevation of BNP-less likely CHF. Troponin WNL, EKG without ST elevation/depression/T-wave abnormalities- less likely ACS. Patient able to tolerate ambulation without dizziness/lightheadedness. At this time suspect pedal edema. We will give a dose of 20 mg Lasix in the department and discharge with 5 day course of 20 mg Lasix for fluid overload. Patient counseled to follow up with her PCP and strict return precautions Differential Diagnosis Differential Diagnoses: The differential diagnosis associated with the presentation includes CHF exacerbation Electrolyte imbalance ACS DVT Pedal edema Admission/Observation Consideration of admission/observation: Escalation of care including admission/observation considered Lab Data [facility] Lab Attestation statement: I reviewed the patient's lab results. 08/29/24 16:30 08/29/24 16:30 Labs: Lab Results 08/29/24 Range/Units 16:30 WBC 5.3 (4.8-10.8) X10*3/uL RBC 3.45 L (4.20-5.50) X10*6/uL Hgb 11.6 L (12.0-16.0) g/dl Hct 35.6 L (37.0-47.0) % MCV 103.2 H (80.0-98.0) fL MCH 33.6 H (27.0-33.0) pg MCHC 32.6 (31.0-35.0) g/dl RDW 13.5 (11.0-16.0) % Plt Count 210 D (160-400) X10*3/uL MPV 9.8 (9.4-12.3) fL Immature Gran % (Auto) 0.4 (0.0-0.4) % Neut % (Auto) 50.2 (45-73) % Lymph % (Auto) 36.0 (20-40) % [place] % (Auto) 7.9 (2-11) % Eos % (Auto) 4.9 H (0-4) % Baso % (Auto) 0.6 (0-2) % Lymph # (Auto) 1.9 (1.2-4.9) X10*3/uL [place] # (Auto) 0.4 (0.1-1.2) X10*3/uL Eos # (Auto) 0.3 (0.0-0.4) X10*3/uL Baso # (Auto) 0.0 (0.0-0.2) X10*3/uL Abs Immat Gran (auto) 0.02 (0.00-0.03) X10*3/uL Absolute Neuts (auto) 2.7 (2.0-8.3) x10*3/uL Absolute Nucleated RBC 0.000 (0.0-0.012) X10*3/uL Nucleated RBC % (auto) 0.0 (0.0-0.2) /100WBC Smear Tech's Comments VERIFIED Sodium 143 (135-145) mmol/L Potassium 4.2 (3.3-5.1) mmol/L Chloride 110 H (96-108) mmol/L Carbon Dioxide 27 (22-29) mmol/L Anion Gap 10 L (12-20) BUN 21 H (9-16) mg/dL Creatinine 0.93 (0.5-1.4) mg/dL Estim Creat Clear Calc 58.3 Estimated GFR 60 Random Glucose 89 (60-115) mg/dL Calcium 8.4 (8.4-10.2) mg/dL Total Bilirubin 0.3 (0.0-1.0) mg/dL AST 24 (5-31) U/L ALT 8 (0-31) U/L Alkaline Phosphatase 106 (39-117) U/L Troponin I High Sens 7.7 D (<3.5-17.0) ng/L B-Natriuretic Peptide 139 H (<100) pg/mL Total Protein 6.4 L (6.5-8.0) g/dL Albumin 3.5 (3.5-5.0) g/dL Radiology Impression Discussion of test interpretation with radiology: I have reviewed the radiologist's reading. Radiologist Impression: INDINGS: Respiratory variation, normal compression and augmented flow are noted throughout the bilateral lower extremities. The visualized common femoral vein, superficial femoral vein, profunda femoral vein, popliteal vein and midcalf peroneal and posterior tibial venous segments show no evidence of deep venous thrombosis bilaterally. US/US venous duplex LE BI IMPRESSION: No evidence of deep venous thrombosis involving the bilateral lower extremities. Electronically signed by: Sesar Ward MD 08/29/2024 01:26 PM EDT Dictated By: Sesar Ward MD Signed By: <Electronically signed by Sesar Ward MD in OV> External Record Review External record reviewed: Inpatient record, Office record and Outpatient record Chronic Conditions Patient?s care impacted by: Other (CAD, Parkinson's disease, CKDIII) Discharge Plan Discharge Clinical Impression: Pedal edema Patient Disposition: Home, Self-Care Instructions: Leg Edema (ED) Additional Instructions: You were evaluated in the emergency department today due to swelling in both of your ankles and feet. Your lab work was reassuring, your EKG did not reveal any emergent heart issues. The ultrasound done on both of your legs did not reveal any clots. Your legs seem to be holding onto extra fluid. You were given a dose of 20 mg Lasix in the department. This medication will help remove the fluid through your urine. Where you will urinate out the excess fluid. You will be sent home on a 5 day course of this medication. Please follow up with your primary care provider to ensure improvement. Please return to the emergency department if you experience fevers over 100.4?, chest pain, shortness of breath, increased swelling of your extremities, pain in your calves, difficulty walking, dizziness, lightheadedness, or any other new/concerning/worsening symptoms. Prescriptions: New furosemide 20 mg tablet 20 mg PO DAILY 5 Days Qty: 5 0RF No Action fluoxetine 40 mg capsule 1 cap PO DAILY Rx Instructions: 50mg TDD divalproex 250 mg tablet,delayed release (DR/EC) 3 tab PO BID folic acid 1 mg tablet 1 tab PO DAILY pravastatin 20 mg tablet 1 tab PO BEDTIME phenytoin sodium extended 100 mg capsule 2 tab PO BID nitroglycerin 0.4 mg Tablet, Sublingual 0.4 mg SUBLINGUAL Q5M PRN (Reason: Chest Pain) Rx Instructions: do not exceed 3 doses per episode mirtazapine 15 mg tablet 15 mg PO BEDTIME alum-mag hydroxide-simeth [Mintox] 200-200-20 mg/5 mL Suspension 30 ml PO DAILY PRN (Reason: GI Distress) acetaminophen 500 mg Tablet 1,000 mg PO Q6H PRN (Reason: Pain (Scale Score 1-3)) apixaban 5 mg tablet 5 mg PO BID Qty: 180 0RF Rx Instructions: start on 02/12 guaifenesin 100 mg/5 mL Liquid 200 mg PO Q4H PRN (Reason: Cough) guaifenesin [Mucinex] 600 mg tablet extended release 12hr 600 mg PO BID PRN (Reason: Cough) amantadine HCl 100 mg tablet 100 mg PO DAILY polyethylene glycol 3350 [Miralax] 17 gram/dose powder 17 g PO DAILY 30 Days Qty: 510 6RF gabapentin 100 mg capsule 100 mg PO BID sennosides [senna] 8.6 mg tablet 17.2 mg PO BEDTIME lisinopril 10 mg tablet 10 mg PO DAILY cholecalciferol (vitamin D3) 50 mcg (2,000 unit) capsule 50 mcg PO DAILY cyanocobalamin (vitamin B-12) 500 mcg tablet 500 mcg PO DAILY docusate sodium [Colace] 100 mg capsule 100 mg PO BID bisacodyl 10 mg suppository 10 mg AK DAILY PRN (Reason: Constipation) loperamide [Anti-Diarrheal (loperamide)] 2 mg capsule 2 mg PO Q6H PRN (Reason: Loose Stool) magnesium hydroxide [Milk of Magnesia] 400 mg/5 mL suspension 30 ml PO DAILY PRN (Reason: Constipation) fluoxetine 10 mg capsule 10 mg PO DAILY Rx Instructions: 50mg TDD Print Language: [place]
[2024-08-29 11:35] VITALS: BP 136/74; BP 144/72; PULSE 75; PULSE 85; RESP 18; TEMP 36.8; O2SAT 96; BMI 30.2
--- NOTE | 2024-08-29 12:30 | ECG_ITS ---
Test Reason : edema Blood Pressure : */* mmHG Vent. Rate : 71 BPM Atrial Rate : 71 BPM P-R Int : 180 ms QRS Dur : 104 ms QT Int : 426 ms P-R-T Axes : 56 -33 47 degrees QTcB Int : 462 ms Normal sinus rhythm Left axis deviation Minimal voltage criteria for LVH, may be normal variant ( [place] product ) Septal infarct (cited on or before 24-Jul-2024) Abnormal ECG When compared with ECG of 24-Jul-2024 11:28, Serial changes of Septal infarct Present Referred By: John Nevarez Electronically Signed By: BRUCE LY MD
--- OUTSIDE RECORDS SUMMARY | 2024-08-29 13:51 | XMS_ITS | Encounter Summary ---
Author Organization [facility] [place] [address] Care Team Providers Care Second Baller Name Role Phone Glen Pugh MD Primary Care Provider [phone]- [phone] Encounter Details Date Type Department Care Team (Late st Contact Info) Description 08/15/2024 Lab Requisition [facility] - Main Lab [address] [facility] [place] [id number] Glen Pugh MD [address], [place] [phone] Other pulmonary embolism without acute cor pulmonale (CMS/HCC V24, CMS/HCC V28); Other cholangitis (CMS/HCC V28); Atherosclerotic heart disease of [place] coronary artery without angina pectoris Social History [...] Associated Diagnosis Comments COMPLETE BLOOD COUNT Routine 08/15/2024 6:55 AM EDT Other pulmonary embolism without acute cor pulmonale (CMS/HCC V24, CMS/HCC V28) Other cholangitis (CMS/HCC V28) Atherosclerotic heart disease of [place] coronary artery without angina pectoris COMPREHENSIVE METABOLIC PANEL Routine 08/15/2024 6:55 AM EDT Other pulmonary embolism without acute cor pulmonale (CMS/HCC V24, CMS/HCC V28) Other cholangitis ([facility]/HCC V28) Atherosclerotic heart disease of [place] coronary artery without angina pectoris documented in this encounter Results * (ABNORMAL) Comprehensive metabolic panel (08/15/2024 6:55 AM EDT) Sodium 143 133 - 145 mmol/L LAB CHEMISTRY METHOD 08/15/2024 12:29 PM [facility] Potassium 4.5 3.5 - 5.5 mmol/L LAB CHEMISTRY METHOD 08/15/2024 12:29 PM [facility] Chloride 109 96 - 110 mmol/L LAB CHEMISTRY METHOD 08/15/2024 12:29 PM [facility] CO2 25 21 - 32 mmol/L LAB CHEMISTRY METHOD 08/15/2024 12:29 PM [facility] Anion Gap 9 3 - 11 LAB CHEMISTRY METHOD 08/15/2024 12:29 PM [facility] Glucose 84 70 - 100 mg/dL LAB CHEMISTRY METHOD 08/15/2024 12:29 PM [facility] BUN 20 5 - 25 mg/dL LAB CHEMISTRY METHOD 08/15/2024 12:29 PM [facility] Creatinine 0.82 0.50 - 1.10 mg/dL LAB CHEMISTRY METHOD 08/15/2024 12:29 PM [facility] eGFR 78 >=60 mL/min/1. 73m2 LAB CHEMISTRY METHOD 08/15/2024 12:29 PM [facility] Comment:Calculation based on the Chronic Kidney Disease Epidemiology Collaboration (CKD-EPI) equation refit without adjustment for race. BUN/Creatinine Ratio 24.4 LAB CHEMISTRY METHOD 08/15/2024 12:29 PM [facility] Calcium 8.7 8.5 - 10.5 mg/dL LAB CHEMISTRY METHOD 08/15/2024 12:29 PM EDT [facility] AST (SGOT) 14 10 - 42 unit/L LAB CHEMISTRY METHOD 08/15/2024 12:29 PM [facility] ALT (SGPT) 16 10 - 60 unit/L LAB CHEMISTRY METHOD 08/15/2024 12:29 PM [facility] Alkaline Phosphatase 146(H) 42 - 121 unit/L LAB CHEMISTRY METHOD 08/15/2024 12:29 PM EDT [facility] Total Protein 6.1 6.0 - 8.0 g/dL LAB CHEMISTRY METHOD 08/15/2024 12:29 PM [facility] Albumin 3.0(L) 3.2 - 5.0 g/dL LAB CHEMISTRY METHOD 08/15/2024 12:29 PM [facility] Total Bilirubin 0.4 0.0 - 1.4 mg/dL LAB CHEMISTRY METHOD 08/15/2024 12:29 PM [facility] Blood Venous blood specimen / Unknown Venipuncture / Unknown 08/15/2024 6:55 AM EDT 08/15/2024 10:01 AM EDT Glen Pugh MD LAB BLOOD ORDERABLES Final Result [facility] [address] [place] [address], * (ABNORMAL) Complete blood count (08/15/2024 6:55 AM EDT) WBC 4.6(L) 4.8 - 10.8 K/[facility] LAB HEMETOLOGY METHOD 08/15/2024 11:25 AM EDT [facility] RBC 3.20(L) 3.80 - 4.80 M/[facility] LAB HEMETOLOGY METHOD 08/15/2024 11:25 AM [facility] Hemoglobin 11.1(L) 11.5 - 16.0 g/dL LAB HEMETOLOGY METHOD 08/15/2024 11:25 AM [facility] Hematocrit 34.1(L) 35.0 - 47.0 % LAB HEMETOLOGY METHOD 08/15/2024 11:25 AM [facility] MCV 106.6(H) 79.0 - 98.0 FL LAB HEMETOLOGY METHOD 08/15/2024 11:25 AM [facility] MCH 34.7(H) 27.0 - 32.0 pcg LAB HEMETOLOGY METHOD 08/15/2024 11:25 AM [facility] MCHC 32.6 32.0 - 37.0 g/dL LAB HEMETOLOGY METHOD 08/15/2024 11:25 AM [facility] RDW 13.6 11.0 - 15.0 % LAB HEMETOLOGY METHOD 08/15/2024 11:25 AM [facility] Platelets 199 130 - 400 K/mcL LAB HEMETOLOGY METHOD 08/15/2024 11:25 AM [facility] MPV 10.9 7.0 - 11.0 FL LAB HEMETOLOGY METHOD 08/15/2024 11:25 AM [facility] NRBC 0.0 <1.0 % LAB HEMETOLOGY METHOD 08/15/2024 11:25 AM [facility] NRBC Absolute 0.00 <0.10 K/mcL LAB HEMETOLOGY METHOD 08/15/2024 11:25 AM [facility] Blood Venous blood specimen / Unknown Venipuncture / Unknown 08/15/2024 6:55 AM EDT 08/15/2024 10:01 AM EDT Glen Pugh MD LAB BLOOD ORDERABLES Final Result [facility] [address] [place] [address], documented in this encounter Visit Diagnoses Diagnosis Other pulmonary embolism without acute cor pulmonale (CMS/[facility] V24, CMS/[facility] V28) Other cholangitis ([facility] V28) Atherosclerotic heart disease of [place] coronary artery without angina pectoris documented in this encounter Care Teams Second Baller Relationship Specialty Start Date End Date Glen Pugh MD [address] [place] [address] PCP - General 10/14/23 documented as of this encounter
[2024-08-29 14:29] VITALS: RESP 18; O2SAT 96
[2024-08-29 16:00] VITALS: BP 121/76; PULSE 64; RESP 16; TEMP 36.3; O2SAT 97
[2024-08-29 16:38] LABS: Basophils Percent Auto 0.6 % (0-2); Eosinophils Absolute Auto 0.3 X10*3/uL (0.0-0.4); Eosinophils Percent Auto 4.9 % (0-4); Hematocrit 35.6 % (37.0-47.0); Hemoglobin 11.6 g/dl (12.0-16.0); Imm Gran Abs Auto 0.02 X10*3/uL (0.00-0.03); Imm Gran Pct Auto 0.4 % (0.0-0.4); Lymphocytes Absolute Auto 1.9 X10*3/uL (1.2-4.9); MANUAL DIFF FLAG SCAN; Mean Corpuscular HGB Conc 32.6 g/dl (31.0-35.0); Mean Corpuscular Hemoglobin 33.6 pg (27.0-33.0); Mean Corpuscular Volume 103.2 fL (80.0-98.0); Mean Platelet Volume 9.8 fL (9.4-12.3); Monocytes Absolute Auto 0.4 X10*3/uL (0.1-1.2); Monocytes Percent Auto 7.9 % (2-11); Neutrophils Absolute Auto 2.7 x10*3/uL (2.0-8.3); Neutrophils Percent Auto 50.2 % (45-73); Platelet Count 210 X10*3/uL (160-400); Red Blood Count 3.45 X10*6/uL (4.20-5.50); Red Cell Distribution Width 13.5 % (11.0-16.0); SCAN SMEAR FLAG 1; White Blood Count 5.3 X10*3/uL (4.8-10.8)
[2024-08-29 16:50] LABS: Alanine Aminotransferase 8 U/L (0-31); Albumin Level 3.5 g/dL (3.5-5.0); Alkaline Phosphatase 106 U/L (39-117); Anion Gap 10 (12-20); Aspartate Amino Transferase 24 U/L (5-31); Bilirubin Total 0.3 mg/dL (0.0-1.0); Blood Urea Nitrogen 21 mg/dL (9-16); Calcium 8.4 mg/dL (8.4-10.2); Carbon Dioxide 27 mmol/L (22-29); Chloride 110 mmol/L (96-108); Creatinine Clr Calc Pharmacy 58.3; Estimated Glomerular Filt Rate 60; Glucose Random 89 mg/dL (60-115); Potassium 4.2 mmol/L (3.3-5.1); Sodium 143 mmol/L (135-145); Total Protein 6.4 g/dL (6.5-8.0)
[2024-08-29 16:56] LABS: B Type Natriuretic Peptide 139 pg/mL (<100); Troponin-I High Sensitivity 7.7 ng/L (<3.5-17.0)
[2024-08-29 17:08] LABS: SLIDE REVIEW VERIFIED
[2024-08-29 17:43] VITALS: BP 174/79
[2024-08-29] MEDS: Furosemide 20 MG TABLET PO (17:43)
[2024-08-29 18:00] VITALS: BP 177/77; PULSE 78; RESP 14; TEMP 36.7; O2SAT 99
--- NOTE | 2024-08-29 18:33 | PC.NURSE ---
Pt resting quietly in room; OOB to commode with one assist; PO Lasix gv per orders; vss@baseline; awaiting EMS transfer to SNF
[2024-08-29 19:39] VITALS: BP 184/96; PULSE 78; RESP 18; TEMP 37.1; O2SAT 98
== END 2024-08-29 19:41 | disposition home or self-care (01) ==
PROVIDERS: Emergency Provider Emergency Medicine Emergency Medical Services
DX: R60.0 Localized edema (principal); E11.9 Type 2 diabetes mellitus without complications; I10 Essential (primary) hypertension; E78.5 Hyperlipidemia, unspecified; G20.A1 Parkinson's disease without dyskinesia, without mention of fluctuations; F17.210 Nicotine dependence, cigarettes, uncomplicated; Z79.02 Long term (current) use of antithrombotics/antiplatelets; Z79.899 Other long term (current) 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
CPT/HCPCS: 36415; 80053; 83880; 84484; 85025; 93005; 93970; 99284

== ENCOUNTER → 2024-08-29 12:30 | Outpatient (BNV) | payer MEDICARE, MEDICAID, SELFPAY | PROVIDERS: Emergency Provider Emergency Medicine Emergency Medical Services; Visit Provider Radiology Diagnostic Radiology | DX: R60.0 Localized edema (principal) | CPT/HCPCS: 93970 ==

== ENCOUNTER → 2024-08-29 12:30 | Outpatient (BNV) | payer MEDICARE, MEDICAID, SELFPAY | PROVIDERS: Emergency Provider Emergency Medicine Emergency Medical Services; Visit Provider Internal Medicine Cardiovascular Disease | DX: I25.2 Old myocardial infarction (principal) | CPT/HCPCS: 93010 ==

== ENCOUNTER 2024-08-31 08:16 | Outpatient (AMB) | payer MEDICARE, MEDICAID, SELFPAY ==
--- NOTE | 2024-08-31 08:20 | A.OFFVIS_ITS ---
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 Accompanied by: Aid Allergies adhesive tape Allergy (Unknown, Verified 08/31/24 08:26) hives amlodipine [From Norvasc] Allergy (Unknown, Verified 08/31/24 08:26) Swelling od hands/feet azithromycin [AZITHROMYCIN] Allergy (Unknown, Verified 08/31/24 08:) HIVES bacitracin [From Cortisporin] Allergy (Unknown, Verified 08/31/24 08:) Eye irritation brompheniramine [From Dimetapp Cold-Allergy (PE)] Allergy (Unknown, Verified 08/31/24 08:) Body Rash calcium [From DHEA] Allergy (Unknown, Verified 08/31/24 08:) Unknown calcium carbonate [From DHEA] Allergy (Unknown, Verified 08/31/24 08:) Unknown cefaclor Allergy (Unknown, Verified 08/31/24 08:) Perineum rash chlorpheniramine [From Fedahist] Allergy (Unknown, Verified 08/31/24 08:) Body Rash clindamycin Allergy (Unknown, Verified 08/31/24 08:) GI upset/pain/vomiting devil's claw Allergy (Unknown, Verified 08/31/24 08:) unsure reaction dexbrompheniramine [From Drixoral] Allergy (Unknown, Verified 08/31/24 08:26) Body Rash diphenhydramine [From Benadryl] Allergy (Unknown, Verified 08/31/24 08:) Body Rash doxazosin Allergy (Unknown, Verified 08/31/24 08:) Extreme anxiety erythromycin base Allergy (Unknown, Verified 08/31/24 08:26) Perineum rash garlic Allergy (Unknown, Verified 08/31/24 08:26) Unknown gentamicin [From Garamycin] Allergy (Unknown, Verified 08/31/24 08:26) [eye drops] Eye swelling ginkgo biloba Allergy (Unknown, Verified 08/31/24 08:26) piercing pain in head guaifenesin [From Fedahist] Allergy (Unknown, Verified 08/31/24 08:26) Body Rash hydralazine Allergy (Unknown, Verified 08/31/24 08:26) Swelling of feet/legs hydrochlorothiazide Allergy (Unknown, Verified 08/31/24 08:26) Itchy palms hydrocortisone [From Cortisporin] Allergy (Unknown, Verified 08/31/24 08:26) Eye irritation Macrolide Antibiotics Allergy (Unknown, Verified 08/31/24 08:26) Unknown meclizine Allergy (Unknown, Verified 08/31/24 08:26) very dry mouth methylsulfonylmethane [From MSM] Allergy (Unknown, Verified 08/31/24 08:26) Itchy palms nebivolol [From Bystolic] Allergy (Unknown, Verified 08/31/24 08:26) Swelling of feet/ legs neomycin [From Cortisporin] Allergy (Unknown, Verified 08/31/24 08:26) Eye irritation nifedipine [From Procardia] Allergy (Unknown, Verified 08/31/24 08:26) Swelling of feet and legs nut - unspecified Allergy (Unknown, Verified 08/31/24 08:26) mouth sores Peanut Butter Allergy (Unknown, Verified 08/31/24 08:26) mouth sores penicillin V Allergy (Unknown, Verified 08/31/24 08:26) Body rash Penicillins Allergy (Unknown, Verified 08/31/24 08:26) body rash phenylephrine [From Dimetapp Cold-Allergy (PE)] Allergy (Unknown, Verified 08/31/24 08:26) Body Rash polymyxin B [From Cortisporin] Allergy (Unknown, Verified 08/31/24 08:26) Eye irritation prasterone (DHEA) [From DHEA] Allergy (Unknown, Verified 08/31/24 08:26) Unknown propoxyphene [From Darvon] Allergy (Unknown, Verified 08/31/24 08:26) Unknown pseudoephedrine [From Drixoral] Allergy (Unknown, Verified 08/31/24 08:26) Body Rash shellfish derived Allergy (Unknown, Verified 08/31/24 08:26) itchy body Sulfa (Sulfonamide Antibiotics) Allergy (Unknown, Verified 08/31/24 08:26) Itchy palms sulfamethoxazole [From Bactrim] Allergy (Unknown, Verified 08/31/24 08:26) itchy palms trimethoprim [From Bactrim] Allergy (Unknown, Verified 08/31/24 08:26) itchy palms prednisone Allergy (Verified 08/31/24 08:26) Flushing tetracycline Allergy (Verified 08/31/24 08:26) Unknown Carditone Allergy (Unknown, Uncoded 08/29/24 11:43) Swelling of feet/legs; itchy body Medication List - Last Reconciled 08/31/24 by Trinity Burnett MD alum-mag hydroxide-simeth 200-200-20 mg/5 mL (Mintox) 30 mL PO DAILY PRN amantadine HCl 100 mg PO BID apixaban 5 mg PO BID bisacodyl 10 mg WI DAILY PRN fluoxetine 1 cap PO DAILY fluoxetine 10 mg PO DAILY gabapentin 100 mg PO BID guaifenesin 200 mg PO Q4H PRN lisinopril 10 mg PO DAILY loperamide (Anti-Diarrheal (loperamide)) 2 mg PO Q6H PRN magnesium hydroxide (Milk of Magnesia) 30 mL PO DAILY PRN mirtazapine 15 mg PO BEDTIME nitroglycerin 0.4 mg sublingual Q5M PRN phenytoin sodium extended 2 tabs PO BID polyethylene glycol 3350 (Miralax) 17 grams PO DAILY 30 days sennosides (senna) 17.2 mg PO BEDTIME HPI Comments Details: 68 yr-old Right handed female presents for f/u visit of Parkinsons ( positive ISAIAH , h/o depakote use and alcohol abuse ) and seizures after more than 1 year. she stopped carbidopa/levodopa 6 mths ago due to poor response and severe constipation.The bowel movements improved once she started carbidopa/levodopa.she is still on amantadine 100mg bid Depakote was stopped in June 2024.Denies seizures Pt's primary concerns are: Tremor is more bothersome- milan hands . The tremors are worse with action. she has trouble handwriting , has trouble holding a cup of coffee Speech- normal ADL's: Ind Swallowing: No issues Drooling: None. Has dry mouth. Orthostatic lightheadedness: None Constipation: none since she stopped sinemet s/s: No issues Freezing: None Stiffness: None Tremor: BUE R > L tremor. Falls: No interval falls. Hallucinations: None Mood: Not bad. Memory: Is overall good. Some word finding difficulties or forgetfulness. Sleep: States their is nothing else do to do but sleep. Exercise: Walking regularly- to go outside to smoke. she is at a Longterm Home - Assisted Living ( [facility] ) COUNTS INCLUDE 234 BEDS AT [facility] Medical History (Updated 08/31/24 @ 08:54 by Trinity Burnett MD) Parkinson's disease Fall Dyslipidemia Colonoscopy refused Osteoporosis Hypothyroid HTN (hypertension) Aortic insufficiency Osteopenia CKD (chronic kidney disease) stage 3, GFR 30-59 ml/min Mitral valve disorder Parkinson's disease without dyskinesia Seizure Hx of fracture of femur History of alcohol abuse Diabetes History of encephalopathy History of traumatic subdural hematoma Tobacco dependence Atherosclerotic cardiovascular disease Non-rheumatic aortic stenosis Preoperative cardiovascular examination Myocardial infarct History of coronary artery disease Seizure disorder Hypertension Fall Surgical History (Updated 08/31/24 @ 08:52 by Trinity Burnett MD) History of biliary duct stent placement History of breast biopsy History of tubal ligation History of hip surgery Family History Mother No problems noted. Father No problems noted. 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 Gait: Slow to stand, No right arm swing with tremor and right hand posturing in flexed position, short steps w/ low floor clearance. Psych: Pleasant affect. Assessment & Plan Assessment & Plan (1) Parkinson's disease without dyskinesia: Comment: Positive DaTscan, in setting of Depakote use, h/o alcohol abuse. Code(s): G20.A1 - Parkinson's disease without dyskinesia, without mention of fluctuations Category: Medical Qualifiers: Fluctuating manifestations: unspecified whether manifestations fluctuate Qualified Code(s): G20.A1 - Parkinson's disease without dyskinesia, without mention of fluctuations (2) Seizure: Code(s): R56.9 - Unspecified convulsions Category: Medical Plan Increase amantadine 100mg bid PT for gait training For seizure: No interval seizure activity. Continue Phenytoin 200mg bid Discussed compliance She jimenez dBile duct stent placement 1 month ago and her labs were monitored at that time Orders: Orders PT Evaluation and Treatment Today G20 - Parkinson's disease Medications: Changed From amantadine HCl 100 mg PO DAILY To amantadine HCl 100 mg PO BID 60 tabs 6RF Coding Level of Care Code Est Pt Level 4 (26519) Complex EM visit Add On G2211 Diagnoses Parkinson's disease without dyskinesia, unspecified whether manifestations fluctuate G20.A1 Fluctuating manifestations: unspecified whether manifestations fluctuate Seizure R56.9
[2024-08-31 08:21] VITALS: BP 150/70; O2SAT 96
--- OUTSIDE RECORDS SUMMARY | 2024-08-31 08:22 | XMS_ITS | Encounter Summary ---
Author Organization [facility] [place] [address] Care Team Providers Care Breastfeeding Peer Counselor Name Role Phone Glen Pugh MD Primary Care Provider [phone]- [phone] Encounter Details Date Type Department Care Team (Late st Contact Info) Description 04/24/2024 Lab Requisition [facility] - Main Lab [address] [facility] [place] [id number] Glen Pugh MD [address], [place] [id number] Shortness of breath; Acute cough Social History [...] Procedure Name Priority Date/Time Associated Diagnosis Comments [id number], RSV, FLU A AND B QUALITATIVE RT-PCR, LOCAL REFERENCE LAB Routine 04/23/2024 12:00 AM EST Shortness of breath Acute cough documented in this encounter Results * (ABNORMAL) [id number], RSV, Influenza A and B qualitative RT-PCR (04/23/2024 12:00 AM EST) SARS COV-2 Not Detected Not Detected LAB MOLECULAR DIAGNOSTICS METHOD 04/24/2024 1:02 PM [facility] Comment: Disclaimer: The manner in which this information is used to guide patient care is the responsibility of the healthcare provider. Testing was performed using the [employer] Alinity m SARS-CoV-2 test. This test has been authorized by [facility] under an Emergency Use Authorization [...] for Healthcare Providers can be found at: https://www.fda.gov/media/672431/download Fact sheet for Patients can be found at: https://www.fda.gov/media/539159/download Influenza A PCR Not Detected Not Detected LAB MOLECULAR DIAGNOSTICS METHOD 04/24/2024 1:02 PM [facility] Influenza B PCR Not Detected Not Detected LAB MOLECULAR DIAGNOSTICS METHOD 04/24/2024 1:02 PM [facility] RSV PCR Detected(A ) Not Detected LAB MOLECULAR DIAGNOSTICS METHOD 04/24/2024 1:02 PM [facility] Swab Nasopharyngeal structure / Unknown Non-blood Collection / Unknown 04/23/2024 04/24/2024 9:42 AM EST us Glen Pugh MD LAB MICROBIOLOGY - GENERAL ORDERABLES Final Result [facility] [address] [place] [address], documented in this encounter Visit Diagnoses Diagnosis Shortness of breath Acute cough documented in this encounter Additional Health Concerns Infection Onset Date Last Indicated Resolved Time Respiratory Rule-Out 04/23/2024 04/23/2024 025 1:02 PM EST RSV 04/23/2024 04/23/2024 05/17/2024 7:04 PM EST documented as of this encounter Care Teams Breastfeeding Peer Counselor Relationship Specialty Start Date End Date Glen Pugh MD [address] [place] [id number] PCP - General 10/14/23 documented as of this encounter
== END 2024-08-31 09:01 | disposition home or self-care (01) ==
LOC: HO.HSMS 08:17
PROVIDERS: PCP Internal Medicine; Visit Provider Psychiatry & Neurology Neurology
DX: G20.A1 Parkinson's disease without dyskinesia, without mention of fluctuations (principal); R56.9 Unspecified convulsions
CPT/HCPCS: 99214; G2211

== ENCOUNTER → 2024-08-31 08:16 | Outpatient (BNVA) | payer MEDICARE, MEDICAID, SELFPAY | PROVIDERS: PCP Internal Medicine; Visit Provider Psychiatry & Neurology Neurology | DX: G20.A1 Parkinson's disease without dyskinesia, without mention of fluctuations (principal); R56.9 Unspecified convulsions | CPT/HCPCS: 99212 ==

== ENCOUNTER 2025-01-22 09:38 | Outpatient (AMB) | payer MEDICARE, MEDICAID, SELFPAY ==
--- NOTE | 2025-01-22 09:40 | A.OFFVIS_ITS ---
Vital Signs 01/22/25 09:41 Height 5 ft 4 in Weight 175 lb 0.752 oz BMI 30.0 BP 148/82 H Blood Pressure Location Lt brachial Position Sitting Pulse 80 Pulse Source Pulse Oximeter Intake Visit Reasons: r/s 12/03/24 6 mos followup/stress test Patient Sitter Required: No Supervisor Shaving And Splitting: Supervisor Shaving And Splitting Present Allergies adhesive tape Allergy (Unknown, Verified 01/22/25 09:44) hives amlodipine (From Norvasc) Allergy (Unknown, Verified 01/22/25:44) Swelling od hands/feet azithromycin (AZITHROMYCIN) Allergy (Unknown, Verified 01/22/25 09:44) HIVES bacitracin (From Cortisporin) Allergy (Unknown, Verified 01/22/25 09:44) Eye irritation brompheniramine (From Dimetapp Cold-Allergy (PE)) Allergy (Unknown, Verified 01/22/25 09:44) Body Rash calcium (From DHEA) Allergy (Unknown, Verified 01/22/25 09:44) Unknown calcium carbonate (From DHEA) Allergy (Unknown, Verified 01/22/25 09:44) Unknown cefaclor Allergy (Unknown, Verified 01/22/25 09:44) Perineum rash chlorpheniramine (From Fedahist) Allergy (Unknown, Verified 01/22/25 09:44) Body Rash clindamycin Allergy (Unknown, Verified 01/22/25 09:44) GI upset/pain/vomiting devil's claw Allergy (Unknown, Verified 01/22/25 09:44) unsure reaction dexbrompheniramine (From Drixoral) Allergy (Unknown, Verified 01/22/25 09:44) Body Rash diphenhydramine (From Benadryl) Allergy (Unknown, Verified 01/22/25 09:44) Body Rash doxazosin Allergy (Unknown, Verified 01/22/25 09:44) Extreme anxiety erythromycin base Allergy (Unknown, Verified 01/22/25 09:44) Perineum rash garlic Allergy (Unknown, Verified 01/22/25:44) Unknown gentamicin (From Garamycin) Allergy (Unknown, Verified 01/22/25 09:44) [eye drops] Eye swelling ginkgo biloba Allergy (Unknown, Verified 01/22/25 09:44) piercing pain in head guaifenesin (From Fedahist) Allergy (Unknown, Verified 01/22/25 09:44) Body Rash hydralazine Allergy (Unknown, Verified 01/22/25 09:44) Swelling of feet/legs hydrochlorothiazide Allergy (Unknown, Verified 01/22/25 09:44) Itchy palms hydrocortisone (From Cortisporin) Allergy (Unknown, Verified 01/22/25 09:44) Eye irritation Macrolide Antibiotics Allergy (Unknown, Verified 01/22/25:44) Unknown meclizine Allergy (Unknown, Verified 01/22/25:44) very dry mouth methylsulfonylmethane (From MSM) Allergy (Unknown, Verified 01/22/25 09:44) Itchy palms nebivolol (From Bystolic) Allergy (Unknown, Verified 01/22/25:44) Swelling of feet/ legs neomycin (From Cortisporin) Allergy (Unknown, Verified 01/22/25 09:44) Eye irritation nifedipine (From Procardia) Allergy (Unknown, Verified 01/22/25 09:44) Swelling of feet and legs nut - unspecified Allergy (Unknown, Verified 01/22/25 09:44) mouth sores Peanut Butter Allergy (Unknown, Verified 01/22/25 09:44) mouth sores penicillin V Allergy (Unknown, Verified 01/22/25 09:44) Body rash Penicillins Allergy (Unknown, Verified 01/22/25:44) body rash phenylephrine (From Dimetapp Cold-Allergy (PE)) Allergy (Unknown, Verified 01/22/25 09:44) Body Rash polymyxin B (From Cortisporin) Allergy (Unknown, Verified 01/22/25 09:44) Eye irritation prasterone (DHEA) (From DHEA) Allergy (Unknown, Verified 01/22/25 09:44) Unknown propoxyphene (From Darvon) Allergy (Unknown, Verified 01/22/25 09:44) Unknown pseudoephedrine (From Drixoral) Allergy (Unknown, Verified 01/22/25:44) Body Rash shellfish derived Allergy (Unknown, Verified 01/22/25 09:44) itchy body Sulfa (Sulfonamide Antibiotics) Allergy (Unknown, Verified 01/22/25 09:44) Itchy palms sulfamethoxazole (From Bactrim) Allergy (Unknown, Verified 01/22/25 09:44) itchy palms trimethoprim (From Bactrim) Allergy (Unknown, Verified 01/22/25 09:44) itchy palms prednisone Allergy (Verified 01/22/25 09:44) Flushing tetracycline Allergy (Verified 01/22/25 09:44) Unknown Carditone Allergy (Unknown, Uncoded 01/22/25 09:44) Swelling of feet/legs; itchy body Medication List - Last Reconciled 01/22/25 by ELBA Hwang alum-mag hydroxide-simeth 200-200-20 mg/5 mL (Mintox) 30 mL PO DAILY PRN amantadine HCl 100 mg PO BID apixaban 5 mg PO BID Held on 06/27/24. Instructions: Hold bisacodyl 10 mg RI DAILY PRN fluoxetine 1 cap PO DAILY fluoxetine 10 mg PO DAILY gabapentin 100 mg PO BID guaifenesin 200 mg PO Q4H PRN hydralazine mg PO lisinopril 10 mg PO DAILY loperamide (Anti-Diarrheal (loperamide)) 2 mg PO Q6H PRN magnesium hydroxide (Milk of Magnesia) 30 mL PO DAILY PRN mirtazapine 15 mg PO BEDTIME nitroglycerin 0.4 mg sublingual Q5M PRN phenytoin sodium extended 2 tabs PO BID polyethylene glycol 3350 (Miralax) 17 grams PO DAILY 30 days sennosides (senna) 17.2 mg PO BEDTIME HPI HPI r/s 12/03/24 6 mos followup/stress test: Details: Cielo is a 69-year-old female past medical history of hypertension, hyperlipidemia, reported remote VT, CAD, aortic stenosis who presents for follow-up. ( HS pt) Today she reports feeling generally well since last visit in May. No chest discomfort at rest or with activity. No shortness of breath, PND, orthopnea. No palpitations, lightheadedness, presyncope, syncope or recent falls. Lives in assisted living. She is on Eliquis which she states is because her blood was too thick. She is not on it for any known cardiac reason. No bleeding issues reported. She still smokes 4 cigarettes per day. She takes her meds as directed. [facility] Medical History Parkinson's disease Fall Dyslipidemia Colonoscopy refused Osteoporosis Hypothyroid HTN (hypertension) Aortic insufficiency Osteopenia CKD (chronic kidney disease) stage 3, GFR 30-59 ml/min Mitral valve disorder Parkinson's disease without dyskinesia Seizure Hx of fracture of femur History of alcohol abuse Diabetes History of encephalopathy History of traumatic subdural hematoma Tobacco dependence Atherosclerotic cardiovascular disease Non-rheumatic aortic stenosis Preoperative cardiovascular examination Myocardial infarct History of coronary artery disease Seizure disorder Hypertension Fall Surgical History History of biliary duct stent placement History of breast biopsy History of tubal ligation History of hip surgery Family History Mother No problems noted. Father No problems noted. 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 Review of Systems Const All systems reviewed & are unremarkable except as noted in HPI and below ENT Denies dizziness Card Denies chest pain, Denies chest pain at rest, Denies chest pain with activity, Denies rapid heart rate, Denies pedal edema, Denies edema, Denies leg edema, Denies lightheadedness, Denies palpitations, Denies dyspnea, Denies dyspnea on exertion and Denies orthopnea Resp Denies cough, Denies dyspnea and Denies dyspnea on exertion GI Denies hematochezia and Denies change in stool character Musc Denies abnormal gait, Denies limited range of motion, Denies muscle cramps, Denies muscle weakness, Denies numbness, Denies radiating pain into limb, Denies stiffness and Denies tingling Neuro Denies abnormal gait, Denies dizziness, Denies numbness and Denies tingling Endo Denies palpitations Physical Exam Vital Signs: Last Vital Signs Pulse 80 01/22/25 09:41 BP 148/82 H 01/22/25 09:41 BMI result Body Mass Index 30.0 Const General: cooperative, healthy appearing, comfortable and no acute distress Orientation/consciousness: patient oriented x3 Neck Neck: Yes normal visual inspection Resp Effort & Inspection: normal respiratory effort Auscultation: clear to auscultation bilaterally, no rales, no rhonchi and no wheezes Cardio Rate: regular rate Rhythm: regular rhythm Heart sounds: S1 normal heart sound present, S2 normal heart sound present, no murmurs and no rubs Neuro General: patient oriented x3 Extrem General: Yes normal to inspection, No no pedal edema and No calf tenderness Psych Appearance: grossly normal Mental Status: mental status grossly normal Speech and movement: Normal speech and movement present Assessment & Plan Assessment & Plan (1) Coronary artery disease: Code(s): I25.10 - Atherosclerotic heart disease of [place] coronary artery without angina pectoris Category: Medical Plan: Reported history VT, remotely. No Known coronary stents. Prior EKG showed ST and T wave abnormalities, septal Q. Echocardiogram done 06/13/2024 showed EF 60-65%, [id number] , basal inferior akinetic. Most recent EKG 08/29/2024 shows sinus rhythm with nonspecific ST-T abnormalities, ongoing septal Q. CTA scan of chest done 07/24/2024 shows moderate to heavy coronary calcifications. On last visit I did order a nuclear stress test on her however she did not complete it. Spoke with her about this today and she declines as she has no symptoms. Informed her that she does have coronary artery disease and that if she starts having any Signs and symptoms of angina, she needs to let us know or seek ER evaluation. Continue with risk factor modification. She is currently not on statin for unclear reason. Recommend start of atorvastatin 20 mg daily. This information was written on her paperwork for assisted living. She is not on aspirin as she is on Eliquis. Continue lisinopril for good blood pressure control. will arrange for cardiology follow-up in 6 months, sooner if needed or if stress test warrants it. (2) Aortic stenosis: Code(s): I35.0 - Nonrheumatic aortic (valve) stenosis Category: Medical Plan: History of aortic stenosis with most recent echo 06/13/2024 showing [id number] aortic stenosis, mean gradient 12 mm Hg, aortic valve area 1.3 centimeter sq. Plan for repeat echo in 1 year. (3) Hypertension: Code(s): I10 - Essential (primary) hypertension Category: Medical Plan: Blood pressure goal less than 130/80, mildly elevated today. Recheck done by me 168/78. Wrote on her paperwork for assisted living - to increase lisinopril to 20 mg daily with basic metabolic profile in 1 week. If blood pressure remains elevated at greater than 140 systolic then hydralazine dose can be increased. (4) Tobacco dependence: Code(s): F17.200 - Nicotine dependence, unspecified, uncomplicated Category: Medical Plan: Smokes 4 cigarettes per day. Spoke with her about smoking cessation. (5) Abnormal EKG: Code(s): R94.31 - Abnormal electrocardiogram [ECG] [EKG] Category: Medical Plan: As above Plan I discussed with the patient the management of her hypertension, including incr easing the lisinopril dose and monitoring kidney function. We also talked about the mild to moderate aortic valve stenosis and the plan to monitor it with echocardiograms. We discussed stress testing and she declined. The patient was informed about starting atorvastatin for coronary artery disease and the importance of managing cholesterol levels. I advised her to report any new symptoms such as chest pain or pressure. Orders: Orders CA echo transthoracic complete 11 Months I35.0 - Nonrheumatic aortic (valve) stenosis Patient Instructions: - Increase lisinopril dose as prescribed. - Monitor blood pressure regularly and report any significant changes. - Start atorvastatin as directed for cholesterol management. - Report any new symptoms such as chest pain or pressure immediately. - Consider smoking cessation support. Patient was informed and verbally consented to the use of an ambient scribe for clinic note documentation during this visit. Visit time spent on chart review, interview, assessment, orders, documentation. Coding Level of Care Code Est Pt Level 4 (27929) Complex EM visit Add On G2211 Diagnoses Coronary artery disease I25.10 Aortic stenosis I35.0 Hypertension I10 Tobacco dependence F17.200 Abnormal EKG R94.31 Time Spent (min) 28
[2025-01-22 09:41] VITALS: BP 148/82; PULSE 80
--- OUTSIDE RECORDS SUMMARY | 2025-01-22 10:50 | XMS_ITS | Encounter Summary ---
Author Organization [place] [address] Care Team Providers Care Field Services Analyst Name Role Phone Glen Pugh MD Primary Care Provider [phone] Encounter Details Date Type Department Care Team (Late st Contact Info) Description 05/08/2024 Lab Requisition [facility] - Main Lab [address] [place] [phone] Glen Pugh MD [address] [place] [address] Essential (primary) hypertension; Type 2 diabetes mellitus without complications (CMS/HCC V24, CMS/HCC V28); Other chcf (current) 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; Unspecified convulsions (CMS/HCC V24, CMS/HCC V28); Alcohol use, 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 V24); Atherosclerotic heart disease of [place] coronary artery without angina pectoris; Other pulmonary embolism without acute cor pulmonale (CMS/HCC V24, CMS/HCC V28) Social History Tobacco Use Types Packs/Day Years [...] 2 diabetes mellitus without complications (CMS/HCC) Other chcf (current) 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 Unspecified convulsions (CMS/HCC) Alcohol use, 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) Atherosclerotic heart disease of [place] coronary artery without angina pectoris Other pulmonary embolism without acute cor pulmonale (CMS/HCC) PHENYTOIN LEVEL, TOTAL Routine 05/08/2024 5:45 AM EST Essential (primary) hypertension Type 2 diabetes mellitus without complications (CMS/HCC) Other chcf (current) 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 Unspecified convulsions (CMS/HCC) Alcohol use, 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) Atherosclerotic heart disease of [place] coronary artery without angina pectoris Other pulmonary embolism without acute cor pulmonale (CMS/HCC) VALPROIC ACID LEVEL, TOTAL Routine 05/08/2024 5:45 AM EST Essential (primary) hypertension Type 2 diabetes mellitus without complications (CMS/HCC) Other chcf (current) 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 Unspecified convulsions (CMS/HCC) Alcohol use, 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) Atherosclerotic heart disease of [place] coronary artery without angina pectoris Other pulmonary embolism without acute cor pulmonale (CMS/HCC) HEPATIC FUNCTION PANEL Routine 05/08/2024 5:45 AM EST Essential (primary) hypertension Type 2 diabetes mellitus without complications (CMS/HCC) Other chcf (current) 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 Unspecified convulsions (CMS/HCC) Alcohol use, 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) Atherosclerotic heart disease of [place] coronary artery without angina pectoris Other pulmonary embolism without acute cor pulmonale (CMS/HCC) BASIC METABOLIC PANEL Routine 05/08/2024 5:45 AM EST Essential (primary) hypertension Type 2 diabetes mellitus without complications (CMS/HCC) 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 Unspecified convulsions (CMS/HCC) Alcohol use, 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) Atherosclerotic heart disease of [place] coronary artery without angina pectoris Other pulmonary embolism without acute cor pulmonale (CMS/HCC) documented in this encounter Results * (ABNORMAL) Valproic acid level, total (05/08/2024 5:45 AM EST) [facility] Valproic Acid, Total 42(L) 50 - 100 mcg/mL LAB CHEMISTRY METHOD 05/08/2024 12:00 PM EST [facility] Blood Venous blood specimen / Unknown Venipuncture / Unknown 05/08/2024 5:45 AM EST 05/08/2024 12:00 PM EST us Glen Pugh MD LAB BLOOD ORDERABLES Final Result [facility] [address] [place] [address], [place] [phone] * Phenytoin level total (05/08/2024 5:45 AM EST) [facility] Phenytoin Level 13.2 10.0 - 20.0 mcg/mL LAB CHEMISTRY METHOD 05/08/2024 12:00 PM EST [facility] Blood Venous blood specimen / Unknown Venipuncture / Unknown 05/08/2024 5:45 AM EST 05/08/2024 12:00 PM EST us Glen Pugh MD LAB BLOOD ORDERABLES Final Result [facility] [address] [place] [address], [place] [phone] * (ABNORMAL) Hepatic function panel (05/08/2024 5:45 AM EST) [facility] Total Protein 6.1 6.0 - 8.0 g/dL LAB CHEMISTRY METHOD 05/08/2024 12:00 PM EST [facility] Albumin 3.0(L) 3.2 - 5.0 g/dL LAB CHEMISTRY METHOD 05/08/2024 12:00 PM EST [facility] Total Bilirubin 0.2 0.0 - 1.4 mg/dL LAB CHEMISTRY METHOD 05/08/2024 12:00 PM [facility] Bilirubin, Direct <0.1 0.0 - 0.3 mg/dL LAB CHEMISTRY METHOD 05/08/2024 12:00 PM [facility] Bilirubin, Indirect LAB CHEMISTRY METHOD 05/08/2024 12:00 PM [facility] Comment:Unable to calculate Indirect Bilirubin. ALT (SGPT) 22 10 - 60 unit/L LAB CHEMISTRY METHOD 05/08/2024 12:00 PM [facility] AST (SGOT) 23 10 - 42 unit/L LAB CHEMISTRY METHOD 05/08/2024 12:00 PM [facility] Comment:Hemolysis present Alkaline Phosphatase 98 42 - 121 unit/L LAB CHEMISTRY METHOD 05/08/2024 12:00 PM [facility] Blood Venous blood specimen / Unknown Venipuncture / Unknown 05/08/2024 5:45 AM EST 05/08/2024 12:00 PM EST us Glen Pugh MD LAB BLOOD ORDERABLES Final Result [facility] [address] [place] [address], * (ABNORMAL) Basic metabolic panel (05/08/2024 5:45 AM EST) Sodium 140 133 - 145 mmol/L LAB CHEMISTRY METHOD 05/08/2024 12:00 PM [facility] Potassium 5.6(H) 3.5 - 5.5 mmol/L LAB CHEMISTRY METHOD 05/08/2024 12:00 PM [facility] Comment:Hemolysis present Chloride 110 96 - 110 mmol/L LAB CHEMISTRY METHOD 05/08/2024 12:00 PM [facility] CO2 28 21 - 32 mmol/L LAB CHEMISTRY METHOD 05/08/2024 12:00 PM [facility] Anion Gap 2(L) 3 - 11 LAB CHEMISTRY METHOD 05/08/2024 12:00 PM [facility] Glucose 67(L) 70 - 100 mg/dL LAB CHEMISTRY METHOD 05/08/2024 12:00 PM [facility] BUN 25 5 - 25 mg/dL LAB CHEMISTRY METHOD 05/08/2024 12:00 PM [facility] Creatinine 0.92 0.50 - 1.10 mg/dL LAB CHEMISTRY METHOD 05/08/2024 12:00 PM [facility] eGFR 68 >=60 mL/min/1. 73m2 LAB CHEMISTRY METHOD 05/08/2024 12:00 PM [facility] Comment:Calculation based on the Chronic Kidney Disease Epidemiology Collaboration (CKD-EPI) equation refit without adjustment for race. BUN/Creatinine Ratio 27.2 LAB CHEMISTRY METHOD 05/08/2024 12:00 PM [facility] Calcium 8.5 8.5 - 10.5 mg/dL LAB CHEMISTRY METHOD 05/08/2024 12:00 PM [facility] Blood Venous blood specimen / Unknown Venipuncture / Unknown 05/08/2024 5:45 AM EST 05/08/2024 12:00 PM EST us Glen Pugh MD LAB BLOOD ORDERABLES Final Result [facility] [address] [place] [address], * (ABNORMAL) Complete blood count (05/08/2024 5:45 AM EST) WBC 5.0 4.8 - 10.8 K/mcL LAB HEMETOLOGY METHOD 05/08/2024 1:27 PM [facility] RBC 3.50(L) 3.80 - 4.80 M/mcL LAB HEMETOLOGY METHOD 05/08/2024 1:27 PM [facility] Hemoglobin 11.7 11.5 - 16.0 g/dL LAB HEMETOLOGY METHOD 05/08/2024 1:27 PM [facility] Hematocrit 36.8 35.0 - 47.0 % LAB HEMETOLOGY METHOD 05/08/2024 1:27 PM [facility] MCV 105.4(H) 79.0 - 98.0 FL LAB HEMETOLOGY METHOD 05/08/2024 1:27 PM [facility] MCH 33.5(H) 27.0 - 32.0 pcg LAB HEMETOLOGY METHOD 05/08/2024 1:27 PM [facility] MCHC 31.8(L) 32.0 - 37.0 g/dL LAB HEMETOLOGY METHOD 05/08/2024 1:27 PM [facility] RDW 13.5 11.0 - 15.0 % LAB HEMETOLOGY METHOD 05/08/2024 1:27 PM [facility] Platelets 234 130 - 400 K/mcL LAB HEMETOLOGY METHOD 05/08/2024 1:27 PM [facility] MPV 10.4 7.0 - 11.0 FL LAB HEMETOLOGY METHOD 05/08/2024 1:27 PM [facility] NRBC 0.0 <1.0 % LAB HEMETOLOGY METHOD 05/08/2024 1:27 PM [facility] NRBC Absolute 0.00 <0.10 K/mcL LAB HEMETOLOGY METHOD 05/08/2024 1:27 PM [facility] Blood Venous blood specimen / Unknown Venipuncture / Unknown 05/08/2024 5:45 AM EST 05/08/2024 12:00 PM EST Glen Pugh MD LAB BLOOD ORDERABLES Final Result [facility] [address] [place] [address], documented in this encounter Visit Diagnoses Diagnosis Essential (primary) hypertension Unspecified essential hypertension Type 2 diabetes mellitus without complications ([facility] V24, [facility] V28) Other chcf (current) 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 Unspecified convulsions ([facility] V24, [facility] V28) Alcohol use, unspecified with unspecified alcohol-induced disorder ([facility] V24) Atherosclerotic heart disease of [place] coronary artery without angina pectoris Other pulmonary embolism without acute cor pulmonale ([facility] V24, [facility] V28) documented in this encounter Additional Health Concerns Infection Onset Date Last Indicated Resolved Time RSV 04/23/2024 04/23/2024 05/17/2024 7:04 PM EST documented as of this encounter Care Teams Field Services Analyst Relationship Specialty Start Date End Date Glen Pugh MD [address] [place] [id number] PCP - General 10/14/23 documented as of this encounter
--- OUTSIDE RECORDS SUMMARY | 2025-01-22 10:50 | XMS_ITS | Encounter Summary ---
Author Organization [facility] [place] [address] Care Team Providers Care Tab Card Press Operator Name Role Phone Glen Pugh MD Primary Care Provider +1- [phone] Encounter Details Date Type Department Care Team (Late st Contact Info) Description 04/24/2024 Lab Requisition [facility] - Main Lab [address] [facility] [place] [phone] Glen Pugh MD [address] [place] [address] Shortness of breath; Acute cough Social History [...] Procedure Name Priority Date/Time Associated Diagnosis Comments [id number], RSV, FLU A AND B QUALITATIVE RT-PCR, LOCAL REFERENCE LAB Routine 04/23/2024 12:00 AM EST Shortness of breath Acute cough documented in this encounter Results * (ABNORMAL) [id number], RSV, Influenza A and B qualitative RT-PCR (04/23/2024 12:00 AM EST) SARS COV-2 Not Detected Not Detected LAB MOLECULAR DIAGNOSTICS METHOD 04/24/2024 1:02 PM [facility] Comment: Disclaimer: The manner in which this information is used to guide patient care is the responsibility of the healthcare provider. Testing was performed using the Goby Alinity m SARS-CoV-2 test. This test has [...] for Healthcare Providers can be found at: https://www.fda.gov/media/474133/download Fact sheet for Patients can be found at: https://www.fda.gov/media/213466/download Influenza A PCR Not Detected Not Detected LAB MOLECULAR DIAGNOSTICS METHOD 04/24/2024 1:02 PM [facility] Influenza B PCR Not Detected Not Detected LAB MOLECULAR DIAGNOSTICS METHOD 04/24/2024 1:02 PM [facility] RSV PCR Detected(A ) Not Detected LAB MOLECULAR DIAGNOSTICS METHOD 04/24/2024 1:02 PM [facility] Swab Nasopharyngeal structure / Unknown Non-blood Collection / Unknown 04/23/2024 04/24/2024 9:42 AM EST Glen Pugh MD LAB MICROBIOLOGY - GENERAL ORDERABLES Final Result [facility] [address] [place] [address], documented in this encounter Visit Diagnoses Diagnosis Shortness of breath Acute cough documented in this encounter Additional Health Concerns Infection Onset Date Last Indicated Resolved Time Respiratory Rule-Out 04/23/2024 04/23/2024 025 1:02 PM EST RSV 04/23/2024 04/23/2024 05/17/2024 7:04 PM EST documented as of this encounter Care Teams Tab Card Press Operator Relationship Specialty Start Date End Date Glen Pugh MD [address] [place] [id number] PCP - General 10/14/23 documented as of this encounter
--- OUTSIDE RECORDS SUMMARY | 2025-01-22 10:50 | XMS_ITS | Encounter Summary ---
Author Organization [facility] [place] [address] Care Team Providers Care Digital Recruiter Name Role Phone Glen Pugh MD Primary Care Provider +1- [phone] Encounter Details Date Type Department Care Team (Late st Contact Info) Description 08/15/2024 Lab Requisition [facility] - Main Lab [address] [facility] [place] [phone] Glen Pugh MD [address] [place] [address] Other pulmonary embolism without acute cor pulmonale (CMS/HCC V24, CMS/HCC V28); Other cholangitis (CMS/HCC V28); Atherosclerotic heart disease of [place] coronary artery without angina pectoris Social History [...] cholangitis (CMS/HCC V28) Atherosclerotic heart disease of jam[place] coronary artery without angina pectoris COMPREHENSIVE METABOLIC PANEL Routine 08/15/2024 6:55 AM EDT Other pulmonary embolism without acute cor pulmonale (CMS/HCC V24, CMS/HCC V28) Other cholangitis ([facility]/HCC V28) Atherosclerotic heart disease of jamul coronary artery without angina pectoris documented in this encounter Results * (ABNORMAL) Comprehensive metabolic panel (08/15/2024 6:55 AM EDT) Sodium 143 133 - 145 mmol/L LAB CHEMISTRY METHOD 08/15/2024 12:29 PM [facility] Potassium 4.5 3.5 - 5.5 mmol/L LAB CHEMISTRY METHOD 08/15/2024 12:29 PM [facility] Chloride 109 96 - 110 mmol/L LAB CHEMISTRY METHOD 08/15/2024 12:29 PM [facility] CO2 25 21 - 32 mmol/L LAB CHEMISTRY METHOD 08/15/2024 12:29 PM [facility] Anion Gap 9 3 - 11 LAB CHEMISTRY METHOD 08/15/2024 12:29 PM [facility] Glucose 84 70 - 100 mg/dL LAB CHEMISTRY METHOD 08/15/2024 12:29 PM [facility] BUN 20 5 - 25 mg/dL LAB CHEMISTRY METHOD 08/15/2024 12:29 PM [facility] Creatinine 0.82 0.50 - 1.10 mg/dL LAB CHEMISTRY METHOD 08/15/2024 12:29 PM [facility] eGFR 78 >=60 mL/min/1. 73m2 LAB CHEMISTRY METHOD 08/15/2024 12:29 PM [facility] Comment:Calculation based on the Chronic Kidney Disease Epidemiology Collaboration (CKD-EPI) equation refit without adjustment for race. BUN/Creatinine Ratio 24.4 LAB CHEMISTRY METHOD 08/15/2024 12:29 PM [facility] Calcium 8.7 8.5 - 10.5 mg/dL LAB CHEMISTRY METHOD 08/15/2024 12:29 PM [facility] AST (SGOT) 14 10 - 42 unit/L LAB CHEMISTRY METHOD 08/15/2024 12:29 PM [facility] ALT (SGPT) 16 10 - 60 unit/L LAB CHEMISTRY METHOD 08/15/2024 12:29 PM [facility] Alkaline Phosphatase 146(H) 42 - 121 unit/L LAB CHEMISTRY METHOD 08/15/2024 12:29 PM [facility] Total Protein 6.1 6.0 - 8.0 g/dL LAB CHEMISTRY METHOD 08/15/2024 12:29 PM [facility] Albumin 3.0(L) 3.2 - 5.0 g/dL LAB CHEMISTRY METHOD 08/15/2024 12:29 PM [facility] Total Bilirubin 0.4 0.0 - 1.4 mg/dL LAB CHEMISTRY METHOD 08/15/2024 12:29 PM [facility] Blood Venous blood specimen / Unknown Venipuncture / Unknown 08/15/2024 6:55 AM EDT 08/15/2024 10:01 AM EDT Glen Pugh MD LAB BLOOD ORDERABLES Final Result [facility] [address] [place] [address], * (ABNORMAL) Complete blood count (08/15/2024 6:55 AM EDT) WBC 4.6(L) 4.8 - 10.8 K/[facility] LAB HEMETOLOGY METHOD 08/15/2024 11:25 AM EDT [facility] RBC 3.20(L) 3.80 - 4.80 M/[facility] LAB HEMETOLOGY METHOD 08/15/2024 11:25 AM [facility] Hemoglobin 11.1(L) 11.5 - 16.0 g/dL LAB HEMETOLOGY METHOD 08/15/2024 11:25 AM [facility] Hematocrit 34.1(L) 35.0 - 47.0 % LAB HEMETOLOGY METHOD 08/15/2024 11:25 AM [facility] MCV 106.6(H) 79.0 - 98.0 FL LAB HEMETOLOGY METHOD 08/15/2024 11:25 AM [facility] MCH 34.7(H) 27.0 - 32.0 pcg LAB HEMETOLOGY METHOD 08/15/2024 11:25 AM [facility] MCHC 32.6 32.0 - 37.0 g/dL LAB HEMETOLOGY METHOD 08/15/2024 11:25 AM [facility] RDW 13.6 11.0 - 15.0 % LAB HEMETOLOGY METHOD 08/15/2024 11:25 AM [facility] Platelets 199 130 - 400 K/mcL LAB HEMETOLOGY METHOD 08/15/2024 11:25 AM [facility] MPV 10.9 7.0 - 11.0 FL LAB HEMETOLOGY METHOD 08/15/2024 11:25 AM [facility] NRBC 0.0 <1.0 % LAB HEMETOLOGY METHOD 08/15/2024 11:25 AM [facility] NRBC Absolute 0.00 <0.10 K/mcL LAB HEMETOLOGY METHOD 08/15/2024 11:25 AM [facility] Blood Venous blood specimen / Unknown Venipuncture / Unknown 08/15/2024 6:55 AM EDT 08/15/2024 10:01 AM EDT Glen Pugh MD LAB BLOOD ORDERABLES Final Result [facility] [address] [place] [address], documented in this encounter Visit Diagnoses Diagnosis Other pulmonary embolism without acute cor pulmonale (CMS/HCC V24, CMS/HCC V28) Other cholangitis ([facility] V28) Atherosclerotic heart disease of jamul coronary artery without angina pectoris documented in this encounter Care Teams Digital Recruiter Relationship Specialty Start Date End Date Glen Pugh MD [address] [place] [address] PCP - General 10/14/23 documented as of this encounter
--- OUTSIDE RECORDS SUMMARY | 2025-01-22 10:51 | XMS_ITS | Encounter Summary ---
Author Organization [facility] [place] [address] Care Team Providers Care Parts Department Manager Name Role Phone Glen Pugh MD Primary Care Provider +1- [phone] Encounter Details Date Type Department Care Team (Late st Contact Info) Description 09/10/2024 Lab Requisition [facility] - Main Lab [address] [facility] [place] [phone] Glen Pugh MD [address] [place] [address] Atherosclerotic heart disease of [place] coronary artery without angina pectoris; Other cholangitis (CMS/HCC V28); Other pulmonary embolism without acute cor pulmonale [...] Associated Diagnosis Comments COMPREHENSIVE METABOLIC PANEL Routine 09/11/2024 6:19 AM EDT Atherosclerotic heart disease of [place] coronary artery without angina pectoris Other cholangitis (CMS/HCC V28) Other pulmonary embolism without acute cor pulmonale (CMS/HCC V24, CMS/HCC V28) documented in this encounter Results * (ABNORMAL) Comprehensive metabolic panel (09/11/2024 6:19 AM EDT) Sodium 143 133 - 145 mmol/L LAB CHEMISTRY METHOD 09/11/2024 9:57 AM [facility] Potassium 4.5 3.5 - 5.5 mmol/L LAB CHEMISTRY METHOD 09/11/2024 9:57 AM [facility] Chloride 110 96 - 110 mmol/L LAB CHEMISTRY METHOD 09/11/2024 9:57 AM [facility] CO2 26 21 - 32 mmol/L LAB CHEMISTRY METHOD 09/11/2024 9:57 AM [facility] Anion Gap 7 3 - 11 LAB CHEMISTRY METHOD 09/11/2024 9:57 AM [facility] Glucose 70 70 - 100 mg/dL LAB CHEMISTRY METHOD 09/11/2024 9:57 AM [facility] BUN 28(H) 5 - 25 mg/dL LAB CHEMISTRY METHOD 09/11/2024 9:57 AM [facility] Creatinine 0.85 0.50 - 1.10 mg/dL LAB CHEMISTRY METHOD 09/11/2024 9:57 AM [facility] eGFR 74 >=60 mL/min/1. 73m2 LAB CHEMISTRY METHOD 09/11/2024 9:57 AM [facility] Comment:Calculation based on the Chronic Kidney Disease Epidemiology Collaboration (CKD-EPI) equation refit without adjustment for race. BUN/Creatinine Ratio 32.9 LAB CHEMISTRY METHOD 09/11/2024 9:57 AM [facility] Calcium 8.2(L) 8.5 - 10.5 mg/dL LAB CHEMISTRY METHOD 09/11/2024 9:57 AM [facility] AST (SGOT) 16 10 - 42 unit/L LAB CHEMISTRY METHOD 09/11/2024 9:57 AM [facility] ALT (SGPT) 17 10 - 60 unit/L LAB CHEMISTRY METHOD 09/11/2024 9:57 AM EDT [facility] Alkaline Phosphatase 100 42 - 121 unit/L LAB CHEMISTRY METHOD 09/11/2024 9:57 AM EDT [facility] Total Protein 5.8(L) 6.0 - 8.0 g/dL LAB CHEMISTRY METHOD 09/11/2024 9:57 AM EDT [facility] Albumin 2.9(L) 3.2 - 5.0 g/dL LAB CHEMISTRY METHOD 09/11/2024 9:57 AM EDT [facility] Total Bilirubin 0.3 0.0 - 1.4 mg/dL LAB CHEMISTRY METHOD 09/11/2024 9:57 AM EDT [facility] Blood Venous blood specimen / Unknown Venipuncture / Unknown 09/11/2024 6:19 AM EDT 09/11/2024 8:52 AM EDT us Glen Pugh MD LAB BLOOD ORDERABLES Final Result [facility] [address] [place] [address], documented in this encounter Visit Diagnoses Diagnosis Atherosclerotic heart disease of [place] coronary artery without angina pectoris Other cholangitis (CMS/HCC V28) Other pulmonary embolism without acute cor pulmonale (CMS/HCC V24, CMS/HCC V28) documented in this encounter Care Teams Parts Department Manager Relationship Specialty Start Date End Date Glen Pugh MD [address] [place] [id number] PCP - General 10/14/23 documented as of this encounter
--- OUTSIDE RECORDS SUMMARY | 2025-01-22 10:51 | XMS_ITS | Encounter Summary ---
Author Organization [facility] [place] [address] Care Team Providers Care Wwe Wrestler Name Role Phone Glen Pugh MD Primary Care Provider +1- [phone] Encounter Details Date Type Department Care Team (Late st Contact Info) Description 06/05/2024 Lab Requisition [facility] - Main Lab [address] [address] [facility] [address] [place] [phone] Glen Pugh MD [address] [place] [address] Type 2 diabetes mellitus without complications (CMS/HCC V24, CMS/HCC V28); Essential (primary) hypertension; Atherosclerotic heart disease of [place] coronary artery without angina pectoris; Hyperlipidemia, unspecified [...] Essential (primary) hypertension Atherosclerotic heart disease of [place] coronary artery without angina pectoris Hyperlipidemia, unspecified FOLATE Routine 06/05/2024 8:07 AM EDT Type 2 diabetes mellitus without complications ([facility]/HCC) Essential (primary) hypertension Atherosclerotic heart disease of [place] coronary artery without angina pectoris Hyperlipidemia, unspecified VITAMIN B12 Routine 06/05/2024 8:07 AM EDT Type 2 diabetes mellitus without complications (CMS/HCC) Essential (primary) hypertension Atherosclerotic heart disease of [place] coronary artery without angina pectoris Hyperlipidemia, unspecified BASIC METABOLIC PANEL Routine 06/05/2024 8:07 AM EDT Type 2 diabetes mellitus without complications ([facility]/HCC) Essential (primary) hypertension Atherosclerotic heart disease of [place] coronary artery without angina pectoris Hyperlipidemia, unspecified documented in this encounter Results * (ABNORMAL) Vitamin B12 (06/05/2024 8:07 AM EDT) Pathologist [facility] Vitamin B-12 1,075(H) 250 - 900 pcg/mL LAB CHEMISTRY METHOD 06/05/2024 12:47 PM EDT [facility] Blood Venous blood specimen / Unknown Venipuncture / Unknown 06/05/2024 8:07 AM EDT 06/05/2024 11:02 AM EDT us Glen Pugh MD LAB BLOOD ORDERABLES Final Result [facility] [address] [place] [address], * (ABNORMAL) Folate (06/05/2024 8:07 AM EDT) Pathologist [facility] Folate >20.0(H) 2.8 - 17.0 ng/ml LAB CHEMISTRY METHOD 06/05/2024 12:47 PM EDT [facility] Blood Venous blood specimen / Unknown Venipuncture / Unknown 06/05/2024 8:07 AM EDT 06/05/2024 11:02 AM EDT us Glen Pugh MD LAB BLOOD ORDERABLES Final Result [facility] [address] [place] [address], [place] [phone] * Lipid panel with reflex to direct LDL (06/05/2024 8:07 AM EDT) Cholesterol 159 0 - 200 mg/dL LAB CHEMISTRY METHOD 06/05/2024 12:47 PM EDT [facility] Triglycerides 99 0 - 150 mg/dL LAB CHEMISTRY METHOD 06/05/2024 12:47 PM EDT [facility] HDL 78 >=40 mg/dL LAB CHEMISTRY METHOD 06/05/2024 12:47 PM EDT [facility] LDL Calculated 61 0 - 100 mg/dL LAB CHEMISTRY METHOD 06/05/2024 12:47 PM EDT [facility] VLDL Cholesterol Irvin 19.8 mg/dL LAB CHEMISTRY METHOD 06/05/2024 12:47 PM EDT [facility] Non HDL Chol. (LDL+VLDL) 81 <145 mg/dL LAB CHEMISTRY METHOD 06/05/2024 12:47 PM EDT [facility] Chol/HDL Ratio 2.0 0.0 - 4.4 LAB CHEMISTRY METHOD 06/05/2024 12:47 PM EDT [facility] Blood Venous blood specimen / Unknown Venipuncture / Unknown 06/05/2024 8:07 AM EDT 06/05/2024 11:02 AM EDT us Glen Pugh MD LAB BLOOD ORDERABLES Final Result [facility] [address] [place] [address], [place] [phone] * (ABNORMAL) Basic metabolic panel (06/05/2024 8:07 AM EDT) Sodium 141 133 - 145 mmol/L LAB CHEMISTRY METHOD 06/05/2024 12:21 PM [facility] Potassium 5.1 3.5 - 5.5 mmol/L LAB CHEMISTRY METHOD 06/05/2024 12:21 PM [facility] Chloride 108 96 - 110 mmol/L LAB CHEMISTRY METHOD 06/05/2024 12:21 PM [facility] CO2 28 21 - 32 mmol/L LAB CHEMISTRY METHOD 06/05/2024 12:21 PM [facility] Anion Gap 5 3 - 11 LAB CHEMISTRY METHOD 06/05/2024 12:21 PM [facility] Glucose 92 70 - 100 mg/dL LAB CHEMISTRY METHOD 06/05/2024 12:21 PM [facility] BUN 29(H) 5 - 25 mg/dL LAB CHEMISTRY METHOD 06/05/2024 12:21 PM [facility] Creatinine 0.95 0.50 - 1.10 mg/dL LAB CHEMISTRY METHOD 06/05/2024 12:21 PM [facility] eGFR 65 >=60 mL/min/1. 73m2 LAB CHEMISTRY METHOD 06/05/2024 12:21 PM [facility] Comment:Calculation based on the Chronic Kidney Disease Epidemiology Collaboration (CKD-EPI) equation refit without adjustment for race. BUN/Creatinine Ratio 30.5 LAB CHEMISTRY METHOD 06/05/2024 12:21 PM [facility] Calcium 8.9 8.5 - 10.5 mg/dL LAB CHEMISTRY METHOD 06/05/2024 12:21 PM [facility] Blood Venous blood specimen / Unknown Venipuncture / Unknown 06/05/2024 8:07 AM EDT 06/05/2024 11:02 AM EDT us Glen Pugh MD LAB BLOOD ORDERABLES Final Result [facility] [address] [place] [address], documented in this encounter Visit Diagnoses Diagnosis Type 2 diabetes mellitus without complications (CMS/HCC V24, CMS/HCC V28) Essential (primary) hypertension Unspecified essential hypertension Atherosclerotic heart disease of [place] coronary artery without angina pectoris Hyperlipidemia, unspecified documented in this encounter Care Teams Wwe Wrestler Relationship Specialty Start Date End Date Glen Pugh MD [address] [place] [address] PCP - General 10/14/23 documented as of this encounter
--- OUTSIDE RECORDS SUMMARY | 2025-01-22 10:51 | XMS_ITS | Encounter Summary ---
Author Organization [facility] [place] [address] Care Team Providers Care Custodian Name Role Phone Glen Pugh MD Primary Care Provider +1- [phone] Encounter Details Date Type Department Care Team (Late st Contact Info) Description 10/08/2024 Lab Requisition [facility] - Main Lab [address] [place] [phone] Glen Pugh MD [address] [place] [address] Atherosclerotic heart disease of [place] coronary artery without angina pectoris; Other cholangitis [...] Associated Diagnosis Comments COMPREHENSIVE METABOLIC PANEL Routine 10/09/2024 6:34 AM EDT Atherosclerotic heart disease of [place] coronary artery without angina pectoris Other cholangitis (CMS/HCC V28) Other pulmonary embolism without acute cor pulmonale (CMS/HCC V24, CMS/HCC V28) documented in this encounter Results * (ABNORMAL) Comprehensive metabolic panel (10/09/2024 6:34 AM EDT) Sodium 142 133 - 145 mmol/L LAB CHEMISTRY METHOD 10/09/2024 11:44 AM [facility] Potassium 4.3 3.5 - 5.5 mmol/L LAB CHEMISTRY METHOD 10/09/2024 11:44 AM [facility] Chloride 110 96 - 110 mmol/L LAB CHEMISTRY METHOD 10/09/2024 11:44 AM [facility] CO2 27 21 - 32 mmol/L LAB CHEMISTRY METHOD 10/09/2024 11:44 AM [facility] Anion Gap 5 3 - 11 LAB CHEMISTRY METHOD 10/09/2024 11:44 AM [facility] Glucose 71 70 - 100 mg/dL LAB CHEMISTRY METHOD 10/09/2024 11:44 AM [facility] BUN 23 5 - 25 mg/dL LAB CHEMISTRY METHOD 10/09/2024 11:44 AM [facility] Creatinine 0.86 0.50 - 1.10 mg/dL LAB CHEMISTRY METHOD 10/09/2024 11:44 AM [facility] eGFR 73 >=60 mL/min/1. 73m2 LAB CHEMISTRY METHOD 10/09/2024 11:44 AM [facility] Comment:Calculation based on the Chronic Kidney Disease Epidemiology Collaboration (CKD-EPI) equation refit without adjustment for race. BUN/Creatinine Ratio 26.7 LAB CHEMISTRY METHOD 10/09/2024 11:44 AM [facility] Calcium 8.4(L) 8.5 - 10.5 mg/dL LAB CHEMISTRY METHOD 10/09/2024 11:44 AM [facility] AST (SGOT) 16 10 - 42 unit/L LAB CHEMISTRY METHOD 10/09/2024 11:44 AM [facility] ALT (SGPT) 21 10 - 60 unit/L LAB CHEMISTRY METHOD 10/09/2024 11:44 AM EDT [facility] Alkaline Phosphatase 99 42 - 121 unit/L LAB CHEMISTRY METHOD 10/09/2024 11:44 AM EDT [facility] Total Protein 5.7(L) 6.0 - 8.0 g/dL LAB CHEMISTRY METHOD 10/09/2024 11:44 AM EDT [facility] Albumin 3.0(L) 3.2 - 5.0 g/dL LAB CHEMISTRY METHOD 10/09/2024 11:44 AM EDT [facility] Total Bilirubin 0.2 0.0 - 1.4 mg/dL LAB CHEMISTRY METHOD 10/09/2024 11:44 AM EDT [facility] Blood Venous blood specimen / Unknown Venipuncture / Unknown 10/09/2024 6:34 AM EDT 10/09/2024 10:35 AM EDT us Glen Pugh MD LAB BLOOD ORDERABLES Final Result [facility] [address] [place] [address], documented in this encounter Visit Diagnoses Diagnosis Atherosclerotic heart disease of [place] coronary artery without angina pectoris Other cholangitis (CMS/HCC V28) Other pulmonary embolism without acute cor pulmonale (CMS/HCC V24, CMS/HCC V28) documented in this encounter Care Teams Custodian Relationship Specialty Start Date End Date Glen Pugh MD [address] [place] [id number] PCP - General 10/14/23 documented as of this encounter
--- OUTSIDE RECORDS SUMMARY | 2025-01-22 10:51 | XMS_ITS | Clinical Summary ---
Author Organization [facility] Address [address] [place] [address] Care Team Providers Care Radiator Core Tester Name Role Phone [place] Primary Care Provider Unavaila ble Allergies Active Allergy Reactions Criticality Noted Date Comments Adhesives/Tape Itching Low 06/27/2024 Amlodipine Swelling Medium 06/27/2024 Bacitracin Itching Low 06/27/2024 Cefaclor Rash/Dermatitis Low 06/27/2024 Clindamycin GI Intolerance/Nausea/Vomiting Low 0411/2024 Doxazosin Anxiety Low 06/27/2024 Erythromycin Base Rash/Dermatitis Low 06/27/2024 Gentamicin Swelling Medium 06/27/2024 Hydrochlorothiazide Itching Low 06/27/2024 Peanuts Rash/Dermatitis Low 06/27/2024 Pistachio Swelling High 08/03/2024 Medications aluminum-magnesi um hydroxide-simeth icone (MYLANTA-MAX) suspension Take 30 mL by mouth 4 times daily (every 6 hours) as needed for indigestion or heartburn. Active bisacodyl (DULCOLAX) 10 MG suppository Insert 1 suppository (10 mg total) into the rectum daily as needed for constipation. Active FLUoxetine (PROzac) 10 MG capsule Take 5 capsules (50 mg total) by mouth every morning. Total 50 mg daily Active loperamide (IMODIUM A-D) 2 MG tablet Take 1 tablet (2 mg total) by mouth 4 (four) times a day as needed for diarrhea. Active mirtazapine (REMERON) 15 MG tablet Take 1 tablet (15 mg total) by mouth nightly. Active polyethylene glycol 17 g packet Take 1 packet (17 g total) by mouth daily as needed for constipation. Active senna (SENOKOT) 8.6 MG Tab tablet Take 2 tablets by mouth nightly. Active apixaban (ELIQUIS) 5 MG tablet Take 1 tablet (5 mg total) by mouth 2 (two) times a day. Active divalproex (DEPAKOTE) [address] Take 2 tablets (500 mg total) by mouth 3 (three) times a day. 5 Active gabapentin (NEURONTIN) 100 MG capsule Take 1 capsule (100 mg total) by mouth 2 times a day. 5 Active Amantadine HCl (SYMMETREL) 100 MG tablet Take 1 tablet (100 mg total) by mouth every morning. 5 Active hydrALAZINE (APRESOLINE) 100 MG tablet Take 0.5 tablets (50 mg total) by mouth 3 times daily (every 8 hours). 5 Active lisinopril (PRINIVIL,ZeSTRI L) 10 MG tablet Take 1 tablet (10 mg total) by mouth every morning. 5 Active guaiFENesin (ROBITUSSIN) 100 mg/5 mL Liquid liquid as needed. 4 Active magnesium hydroxide (MILK OF MAGNESIA) 400 mg/5 mL suspension Take by mouth daily as needed for constipation. Active phenytoin (DILANTIN) 200 MG ER capsule Take 1 capsule (200 mg total) by mouth 2 (two) times a day. Active guaiFENesin (MUCINEX) 600 MG 12 hr tablet Take 2 tablets (1,200 mg total) by mouth as needed for cough. Active Active Problems Problem Noted Date Diagnosed Date Obstructive jaundice 07/31/2024 Assessment & Plan (08/02/2024 1:48 PM EDT): Came from OSH with c/o pancreatic mass involving duodenum Had ERCP HANDY MAN EUS/ERCP 07/26: Stents removed, CBD stent placed, EUS was difficult Cytology non diagnostic Repeat EUS/ERCP + FNA on 08/02 Resumed heparin gtt and diet post procedure, ok with GI No antibiotics per ID (s/p course of Zosyn) GI, surgery and oncology closely following Denied pain, will keep prn tylenol available Assessment & Plan (08/01/2024 11:41 AM EDT): Came from OSH with c/o pancreatic mass involving duodenum Had ERCP HANDY MAN EUS/ERCP 07/26: Stents removed, CBD stent placed, EUS was difficult Cytology non diagnostic Repeat EUS/ERCP + FNA on 08/02, npo from 12 am order placed No antibiotics per ID (s/p course of Zosyn) GI, surgery and oncology closely following Denied pain, will keep prn tylenol available Assessment & Plan (07/31/2024 12:16 PM EDT): Came from OSH with c/o pancreatic mass involving duodenum Had ERCP HANDY MAN EUS/ERCP 07/26: Stents removed, CBD stent placed, EUS was difficult Cytology non diagnostic Repeat EUS/ERCP + FNA on 08/02, npo from 12 am order placed No antibiotics per ID (s/p course of Zosyn) GI, surgery and oncology closely following Denied pain, will keep prn tylenol available Pancreatic mass 07/31/2024 Assessment & Plan (08/02/2024 1:48 PM EDT): Came from OSH with c/o pancreatic mass involving duodenum Had ERCP HANDY MAN EUS/ERCP 07/26: Stents removed, CBD stent placed, EUS was difficult Cytology non diagnostic Repeat EUS/ERCP + FNA on 08/02 Resumed heparin gtt and diet post procedure, ok with GI No antibiotics per ID (s/p course of Zosyn) GI, surgery and oncology closely following Denied pain, will keep prn tylenol available Assessment & Plan (08/01/2024 11:41 AM EDT): Came from OSH with c/o pancreatic mass involving duodenum Had ERCP HANDY MAN EUS/ERCP 07/26: Stents removed, CBD stent placed, EUS was difficult Cytology non diagnostic Repeat EUS/ERCP + FNA on 08/02, npo from 12 am order placed No antibiotics per ID (s/p course of Zosyn) GI, surgery and oncology closely following Denied pain, will keep prn tylenol available Assessment & Plan (07/31/2024 12:16 PM EDT): Came from OSH with c/o pancreatic mass involving duodenum Had ERCP HANDY MAN EUS/ERCP 07/26: Stents removed, CBD stent placed, EUS was difficult Cytology non diagnostic Repeat EUS/ERCP + FNA on 08/02, npo from 12 am order placed No antibiotics per ID (s/p course of Zosyn) GI, surgery and oncology closely following Denied pain, will keep prn tylenol available 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 Assessment & Plan (08/02/2024 1:48 PM EDT): Came from OSH with c/o pancreatic mass involving duodenum Had ERCP HANDY MAN EUS/ERCP 07/26: Stents removed, CBD stent placed, EUS was difficult Cytology non diagnostic Repeat EUS/ERCP + FNA on 08/02 Resumed heparin gtt and diet post procedure, ok with GI No antibiotics per ID (s/p course of Zosyn) GI, surgery and oncology closely following Denied pain, will keep prn tylenol available Assessment & Plan (08/01/2024 11:41 AM EDT): Came from OSH with c/o pancreatic mass involving duodenum Had ERCP HANDY MAN EUS/ERCP 07/26: Stents removed, CBD stent placed, EUS was difficult Cytology non diagnostic Repeat EUS/ERCP + FNA on 08/02, npo from 12 am order placed No antibiotics per ID (s/p course of Zosyn) GI, surgery and oncology closely following Denied pain, will keep prn tylenol available Assessment & Plan (07/31/2024 12:16 PM EDT): Came from OSH with c/o pancreatic mass involving duodenum Had ERCP HANDY MAN EUS/ERCP 07/26: Stents removed, CBD stent placed, EUS was difficult Cytology non diagnostic Repeat EUS/ERCP + FNA on 08/02, npo from 12 am order placed No antibiotics per ID (s/p course of Zosyn) GI, surgery and oncology closely following Denied pain, will keep prn tylenol available History of ERCP 07/31/2024 Assessment & Plan (08/02/2024 1:48 PM EDT): Came from OSH with c/o pancreatic mass involving duodenum Had ERCP HANDY MAN EUS/ERCP 07/26: Stents removed, CBD stent placed, EUS was difficult Cytology non diagnostic Repeat EUS/ERCP + FNA on 08/02 Resumed heparin gtt and diet post procedure, ok with GI No antibiotics per ID (s/p course of Zosyn) GI, surgery and oncology closely following Denied pain, will keep prn tylenol available Assessment & Plan (08/01/2024 11:41 AM EDT): Came from OS with c/o pancreatic mass involving duodenum Had ERCP HANDY MAN EUS/ERCP 07/26: Stents removed, CBD stent placed, EUS was difficult Cytology non diagnostic Repeat EUS/ERCP + FNA on 08/02, npo from 12 am order placed No antibiotics per ID (s/p course of Zosyn) GI, surgery and oncology closely following Denied pain, will keep prn tylenol available Assessment & Plan (07/31/2024 12:16 PM EDT): Came from OS with c/o pancreatic mass involving duodenum Had ERCP HANDY MAN EUS/ERCP 07/26: Stents removed, CBD stent placed, EUS was difficult Cytology non diagnostic Repeat EUS/ERCP + FNA on 08/02, npo from 12 am order placed No antibiotics per ID (s/p course of Zosyn) GI, surgery and oncology closely following Denied pain, will keep prn tylenol available Transaminitis 07/31/2024 Assessment & Plan (08/02/2024 1:48 PM EDT): Labs reviewed, will add on hepatic function panel CEA CA 19-9 are normal Assessment & Plan (08/01/2024 11:41 AM EDT): Labs look good, she is tolerating her diet very well CEA CA 19-9 are normal Assessment & Plan (07/31/2024 12:16 PM EDT): LFTs within normal limits Total bilirubin within normal limits Monitor CMP closely Chronic kidney disease 07/31/2024 Assessment & Plan (08/02/2024 1:48 PM EDT): Cr and urine output at baseline Assessment & Plan (08/01/2024 11:41 AM EDT): Cr and urine output at baseline Assessment & Plan (07/31/2024 12:16 PM EDT): Cr and urine output at baseline Pulmonary embolism 07/31/2024 Assessment & Plan (08/02/2024 1:48 PM EDT): Will likely switch back to eliquis tomorrow from heparin gtt BL LE duplex ultrasound (-) DVT Assessment & Plan (08/01/2024 11:41 AM EDT): Holding eliquis since 07/31 AM Continues with heparin gtt Will hold hepatin gtt from 08/02 6:00 am (order placed) RLE > LLE, awaiting bilateral duplex ultrasound to r/o DVT Assessment & Plan (07/31/2024 12:16 PM EDT): Holding eliquis from tonight (last dose: 07/31 AM) Started on heparin gtt Will hold hepatin gtt from 08/02 6:00 am (order placed) RLE > LLE, will order bilateral duplex ultrasound to r/o DVT Depression 07/31/2024 Assessment & Plan (08/02/2024 1:48 PM EDT): Continue with Prozac 15 mg daily Continue with Mirtazapine 15 mg nightly Assessment & Plan (08/01/2024 11:41 AM EDT): Continue with Prozac 15 mg daily Continue with Mirtazapine 15 mg nightly Assessment & Plan (07/31/2024 12:16 PM EDT): Continue with Prozac 15 mg daily Continue with Mirtazapine 15 mg nightly Coronary artery disease 07/31/2024 Assessment & Plan (08/02/2024 1:48 PM EDT): Continue with Hydralazine 50 mg every 8 hours Continue with Lisinopril 20 mg daily Continue with Pravastatin 20 mg daily Assessment & Plan (08/01/2024 11:41 AM EDT): Continue with Hydralazine 50 mg every 8 hours Continue with Lisinopril 20 mg daily Continue with Pravastatin 20 mg daily Assessment & Plan (07/31/2024 12:16 PM EDT): Continue with Hydralazine 50 mg every 8 hours Continue with Lisinopril 20 mg daily Continue with Pravastatin 20 mg daily Hypertension 07/31/2024 Assessment & Plan (08/02/2024 1:48 PM EDT): Continue with Hydralazine 50 mg every 8 hours Continue with Lisinopril 20 mg daily Continue with Pravastatin 20 mg daily Assessment & Plan (08/01/2024 11:41 AM EDT): Continue with Hydralazine 50 mg every 8 hours Continue with Lisinopril 20 mg daily Continue with Pravastatin 20 mg daily Assessment & Plan (07/31/2024 12:16 PM EDT): Continue with Hydralazine 50 mg every 8 hours Continue with Lisinopril 20 mg daily Continue with Pravastatin 20 mg daily Hyperlipidemia 07/31/2024 Assessment & Plan (08/02/2024 1:48 PM EDT): Continue with Hydralazine 50 mg every 8 hours Continue with Lisinopril 20 mg daily Continue with Pravastatin 20 mg daily Assessment & Plan (08/01/2024 11:41 AM EDT): Continue with Hydralazine 50 mg every 8 hours Continue with Lisinopril 20 mg daily Continue with Pravastatin 20 mg daily Assessment & Plan (07/31/2024 12:16 PM EDT): Continue with Hydralazine 50 mg every 8 hours Continue with Lisinopril 20 mg daily Continue with Pravastatin 20 mg daily Constipation 07/31/2024 Assessment & Plan (08/02/2024 1:48 PM EDT): Continue with Miralax daily Assessment & Plan (08/01/2024 11:41 AM EDT): Continue with Miralax daily Assessment & Plan (07/31/2024 12:16 PM EDT): Continue with Miralax daily Lymphadenopathy, abdominal 07/31/2024 Assessment & Plan (08/02/2024 1:48 PM EDT): Labs reviewed, will add on hepatic function panel CEA CA 19-9 are normal Assessment & Plan (08/01/2024 11:41 AM EDT): Labs look good, she is tolerating her diet very well CEA CA 19-9 are normal Assessment & Plan (07/31/2024 12:16 PM EDT): LFTs within normal limits Total bilirubin within normal limits Monitor CMP closely Seizure disorder 07/31/2024 Assessment & Plan (08/02/2024 1:48 PM EDT): Continue with Amantadine 100 mg daily Continue with Divalproex 250 mg BID Continue with Gabapnetin 100 mg BID Continue with Dilantin 200 mg BID Assessment & Plan (08/01/2024 11:41 AM EDT): Continue with Amantadine 100 mg daily Continue with Divalproex 250 mg BID Continue with Gabapnetin 100 mg BID Continue with Dilantin 200 mg BID Assessment & Plan (07/31/2024 12:16 PM EDT): Continue with Amantadine 100 mg daily Continue with Divalproex 250 mg BID Continue with Gabapnetin 100 mg BID Continue with Dilantin 200 mg BID Parkinson's disease 07/31/2024 Assessment & Plan (08/02/2024 1:48 PM EDT): Continue with Amantadine 100 mg daily Continue with Divalproex 250 mg BID Continue with Gabapnetin 100 mg BID Continue with Dilantin 200 mg BID Assessment & Plan (08/01/2024 11:41 AM EDT): Continue with Amantadine 100 mg daily Continue with Divalproex 250 mg BID Continue with Gabapnetin 100 mg BID Continue with Dilantin 200 mg BID Assessment & Plan (07/31/2024 12:16 PM EDT): Continue with Amantadine 100 mg daily Continue with Divalproex 250 mg BID Continue with Gabapnetin 100 mg BID Continue with Dilantin 200 mg BID Congestive heart failure (CHF) 07/31/2024 Assessment & Plan (08/02/2024 1:48 PM EDT): Continue with Hydralazine 50 mg every 8 hours Continue with Lisinopril 20 mg daily Continue with Pravastatin 20 mg daily Assessment & Plan (08/01/2024 11:41 AM EDT): Continue with Hydralazine 50 mg every 8 hours Continue with Lisinopril 20 mg daily Continue with Pravastatin 20 mg daily Assessment & Plan (07/31/2024 12:16 PM EDT): Continue with Hydralazine 50 mg every 8 hours Continue with Lisinopril 20 mg daily Continue with Pravastatin 20 mg daily Fever 07/24/2024 Hyperbilirubinemia 07/24/2024 Assessment & Plan (08/02/2024 1:48 PM EDT): Labs reviewed, will add on hepatic function panel CEA CA 19-9 are normal Assessment & Plan (08/01/2024 11:41 AM EDT): Labs look good, she is tolerating her diet very well CEA CA 19-9 are normal Assessment & Plan (07/31/2024 12:16 PM EDT): LFTs within normal limits Total bilirubin within normal limits Monitor CMP closely Jaundice 07/24/2024 Resolved Problems Problem Noted Date Diagnosed Date Resolved Date Jaundice 06/27/2024 07/31/2024 Encounters Date Type Department Care Team Description 11/01/20[address] [facility] [address] [place] [address] Roger Church MD Cholangitis (HCC) (Primary Dx) 11/01/2024 Telephone [facility] [address] [place] [address] Yessenia Juares 10/25/2024 9:06 AM EDT Anesthesia Event [facility] [address] [place] [address], [place] [address] Mac Shaw MD Gordon, Jennifer L, PA-C 10/25/2024 9:00 AM EDT - 10/25/2024 10:00 AM EDT Surgery [facility] [address] [place] [address], [place] [phone] Roger Church MD ERCP w/ Stent Removal 10/25/2024 8:04 AM EDT - 10/25/2024 10:51 AM EDT Hospital Encounter [facility] [address] [place] [address], [place] [address] Roger Church MD Discharge Disposition: Home or Self Care from Last 3 Months Family History Relation Name Status Comments Brother Milton Alive Son Alive Social History Tobacco Use Types Packs/Day Years Used Date Smoking Tobacco: Every Day Cigarettes Smokeless Tobacco: Never Tobacco Cessation:Ready to Q uit: Not Asked; Counseling Given: Not Answered Alcohol Use Standard Drinks/Week Comments Not Currently 0 (1 standard drink = 0.6 oz pur e alcohol) [facility] Utilities Answer Date Recorded In the past 12 months has [employer], oil, or water [employer] threatened to shut off services in your home? No 07/25/2024 AUDIT-C Answer Date Recorded Q1: How often do you have a drink containing alcohol? Never 10/16/2024 Q2: How many drinks containi ng alcohol do you have on a typical day when you are drinking? Patient does not drink Q3: How often do you have si x or more drinks on one occasion? Never 10/16/2024 Overall Financial Resource Strain (CARDIA) Answe r Date Recorded How hard is it for you to pa y for the very basics like food, housing, medical care, and heating? Not very hard 06/29/2024 Hunger Vital Sign Answer Date Recorded Within the past 12 months, y ou worried that your food would run out before you got the money to buy more. Never true 07/26/19 25 Within the past 12 months, t he food you bought just didn't last and you didn't have money to get more. Never true 07/25/2024 PRAPARE - Transportation Answer Date Re corded In the past 12 months, has l ack of transportation kept you from medical appointments or from getting medications? No 09/2024 In the past 12 months, has l ack of transportation kept you from meetings, work, or from getting things needed for daily living? No 07/25/2024 Housing Stability Vital Sign Answer Demetrius e Recorded In the last 12 months, was t here a time when you were not able to pay the mortgage or rent on time? No 07/25/2024 In the past 12 months, how m any times have you moved where you were living? 1 07/25/2024 At any time in the past 12 m [facility], were you homeless or living in a mcc (including now)? No 07/25/2024 Comments No Sex and Gender Information Value Date Recorded Sex Assigned at Female 06/29/2024 11:16 AM EDT Legal Sex Female 3:45 PM EDT Gender Identity Female 06/29/2024 11:16 AM EDT Sexual Orientation Heterosexual (straight) 06/29 11:16 AM EDT Last Filed Vital Signs Vital Sign Reading Time Taken Comments Blood Pressure 163/72 10/25/2024 10:30 AM EDT Pulse 63 10/25/2024 10:30 AM EDT Temperature 35.8 C (96.4 F) 10/25/2024 9:34 AM EDT Respiratory Rate 16 10/25/2024 10:30 AM EDT Oxygen Saturation 94% 10/25/2024 10:30 AM EDT Inhaled Oxygen Concentration - - Weight 81.6 kg (180 lb) 10/16/2024 3:17 PM EDT Height 157.5 cm (5' 2 ) 10/16/2024 3:17 PM EDT Body Mass Index 32.92 10/16/2024 3:17 PM EDT Plan of Treatment Upcoming Encounters Date Type Department Care Team (Latest Contact Info) Description 03/07/2025 8:00 AM EST Hospital Encounter [facility] [address] [place] [address], [place] [phone] Roger Church MD [address] [place] [address] [phone] 03/07/2025 8:00 AM EST Appointment [facility] [address] [place] [address] Roger Church MD [address] [place] [address] [phone] 03/07/2025 8:00 AM EST - 03/07/2025 9:00 AM EST Surgery [facility] [address] [place] [phone] Roger Church MD [address] [place] [address] [phone] ERCP EXCHANGE STENT /C DILATION Scheduled Procedures Name Priority Associated Diagnoses Date/Ti me ERCP REMOVE/EXCHANGE STENT / C DILATION Cholangitis (HCC) 03/07/2025 8:00 AM EST Health Maintenance Due Date Last Done Comments Advance Care Planning 1955 Hepatitis C Virus Screening 1955 DTaP/Tdap/Td Vaccines (1 - Tdap) 1973 Pneumococcal Vaccines 50+ (1 of 2 - PCV) 1973 Mammogram 1994 Colonoscopy 10/24/1999 RSV Vaccine 50 years and old er and Patients (1 - Risk 50-74 years 1-dose series) 2004 Zoster (Shingles) Vaccine (1 of 2) 2004 DXA Bone Density (Females,Ag es 65 and older) 10/24/2019 Influenza Vaccine 10/19/2024 COVID-19 Vaccine (1 - 2023-2 5 season) 2024 Hepatitis B Vaccines Aged Out No long er eligible based on patient's age to complete this topic Goals Goal Patient Goal Type Associated Problems Recent Progress Patient-Stated? Author Autogenerat ed Goal Care Plan Autogenerated Problem No KaylaHaki an, Janene A [employer] Implanted Type Area Professor Of Medicine Device Identifier Shelf Expiration Date Model / Serial / Lot [id number] Stent Biliary Cotton-Pineda 10fr 7cm Taper Tip Pstn Sleeve - [id number] Implanted:Qty : 1 on 10/25/2024 by Roger Church MD at [facility] Stent N/A: Bile Duct [employer] [id number] 09/14/2027 [id number] / / [id number] Explanted Type Area Professor Of Medicine Device Identifier Shelf Expiration Date Model / Serial / Lot [id number] Stent Pancreatic 5fr 5cm Pigtail Curve Radopq Push Cath - [id number] Implanted:Qty: 1 on 06/28/2024 by Roger Church MD at [facility] Explanted:Qty: 1 on 07/26/2024 by Marques Flores MD at [facility] Stent N/A: Bile Duct [employer] [id number] 04/12/2027 [id number] / / [id number] Stent Biliary Cotton-Pineda 10fr 9cm Taper Tip Pstn Sleeve - [id number] Implanted:Qty: 1 on 06/28/2024 by Roger Church MD at [facility] Explanted:Qty: 1 on 07/26/2024 by Marques Flores MD at [facility] Stent N/A: Bile Duct [employer] [id number] 04/19/2027 [id number] / / [id number] Stent Biliary Cotton-Pineda 10fr 7cm Taper Tip Pstn Sleeve - [id number] Implanted:Qty: 1 on 07/27/2024 by Marques Flores MD at [facility] Explanted:Qty: 1 on 10/25/2024 by Roger Church MD at [facility] Stent N/A: Bile Duct [employer] 05/15/2027 [id number] / / [id number] Procedures Procedure Name Priority Date/Time Associated Diagnosis Comments FL ERCP BILIARY AND PANCREATIC Routine 10/25/2024 9:37 AM EDT CYTOLOGY REPORT Routine 10/25/2024 9:25 AM EDT PA ERCP REMOVE FOREIGN BODY/STENT BILIARY/PANC DUCT 10/25/2024 9:02 AM EDT Cholangitis (HCC) from Last 3 Months Results * FL ERCP (10/25/2024 9:37 AM EDT) Anatomical Region Laterality Modality Abdomen Radio Fluoroscop y 10/25/2024 9:05 AM EDT Impressions 10/25/2024 9:48 AM EDT Intraprocedural spot films and fluoroscopy were provided. Please refer to procedure note for full details. Narrative 10/25/2024 9:48 AM EDT EXAMINATION: FL ERCP BILIARY AND PANCREATIC CLINICAL INFORMATION: stent change COMPARISON: ERCP May 15 TECHNIQUE: Fluoroscopy and spot films provided during ERCP. FINDINGS: 6 included spot films demonstrate common bile duct stent exchange. FLUOROSCOPY TIME: 0.8 minutes DOSE AREA PRODUCT: 4.186 Gy-cm2 (lagos-centimeter squared) Procedure Note Taisha Crenshaw DO - 10/25/2024 EXAMINATION: FL ERCP BILIARY AND PANCREATIC CLINICAL INFORMATION: stent change COMPARISON: ERCP May 15 TECHNIQUE: Fluoroscopy and spot films provided during ERCP. FINDINGS: 6 included spot films demonstrate common bile duct stent exchange. FLUOROSCOPY TIME: 0.8 minutes DOSE AREA PRODUCT: 4.186 Gy-cm2 (lagos-centimeter squared) IMPRESSION: Intraprocedural spot films and fluoroscopy were provided. Please refer to procedure note for full details. us Roger Church MD IM FLUOROSCOPY ORDERABLES Final Result * (ABNORMAL) Cytology Report (10/25/2024 9:25 AM EDT) Report [facility] [id number] CLIA ID [id number] [address] [place] [address] / [phone] Cytopathology Report PATIENT NAME: ELENO CHANEY [facility] REC NUMBER: [id number] (AGE): 1955 (Age: 69) SPECIMEN NUMBER: [id number] DATE OBTAINED: 10/25/2024 DIAGNOSIS: A. BRUSHING, BILIARY: ATYPICAL GLANDULAR CELLS PRESENT ADMIXED WITH BENIGN GLANDULAR EPITHELIUM; COULD REPRESENT MARKED REACTIVE CHANGES; RECOMMEND FOLLOW-UP. 10/26/2024 Electronicall y Signed Out ALESIA DAVE MD Clinical Diagnosis and History: BILE DUCT STRICTURE Tissue(s) Submitted: A: BRUSHING, BILIARY Specimen Description: RECEIVED 1 BRUSH IN CYTOLYT [1 THINPREP MADE] PLUS 2 UNLABELED SMEARS IN ETOH [JAR LABELED] 3 SLIDES TOTAL (A) HOSPITAL LAB 10/25/2024 9:25 AM EDT 10/25/2024 10:40 AM EDT Comment:BRUSHING, BILIARY us Roger Church MD PATHOLOGY/CYTOLOGY ORDERABL ES Final Result HOSPITAL LAB See Below from Last 3 Months Additional Health Concerns Active Problems Noted Date Diagnosed Date Autogenerated Problem 11/02/2024 Insurance [facility] MEDICARE [facility] [place] [phone] [facility] MEDICARE Advance Directives * Full Code (Latest Code Status on File) Date Activated Date Inactivated Comments 07/24/2024 5:56 PM 10/25/2024 8:04 AM * Full Code Date Activated Date Inactivated Comments 06/27/2024 8:13 PM 07/24/2024 3:39 PM Question Answer Comments Decision Thoroughly Discussed with: Patient Care Teams Radiator Core Tester Relationship Specialty Start Date End Date Glen Pugh PCP - General Primary Care-Scan 07/25/24 07/26/25
--- OUTSIDE RECORDS SUMMARY | 2025-01-22 10:51 | XMS_ITS | Encounter Summary ---
Author Organization [facility] [place] [address] Care Team Providers Care Hose Finisher Name Role Phone Glen Pugh MD Primary Care Provider [phone]- [phone] Encounter Details Date Type Department Care Team (Late st Contact Info) Description [address] [facility] - Main Lab [address] [place] [address] Glen Pugh MD [address] [place] [address] Essential (primary) hypertension; Type 2 diabetes mellitus without complications (CMS/HCC V24, CMS/HCC V28); Other seizures (CMS/HCC V24, CMS/HCC V28); Atherosclerotic heart disease of [place] coronary artery without angina pectoris Social History [...] Associated Diagnosis Comments COMPREHENSIVE METABOLIC PANEL Routine 2024 7:02 AM EDT Essential (primary) hypertension Type 2 diabetes mellitus without complications (CMS/HCC V24, CMS/HCC V28) Other seizures (CMS/HCC V24, CMS/HCC V28) Atherosclerotic heart disease of [place] coronary artery without angina pectoris documented in this encounter Results * (ABNORMAL) Comprehensive metabolic panel (2024 7:02 AM EDT) Sodium 142 133 - 145 mmol/L LAB CHEMISTRY METHOD 2024 11:43 AM [facility] Potassium 4.3 3.5 - 5.5 mmol/L LAB CHEMISTRY METHOD 2024 11:43 AM [facility] Chloride 110 96 - 110 mmol/L LAB CHEMISTRY METHOD 2024 11:43 AM [facility] CO2 29 21 - 32 mmol/L LAB CHEMISTRY METHOD 2024 11:43 AM [facility] Anion Gap 3 3 - 11 LAB CHEMISTRY METHOD 2024 11:43 AM [facility] Glucose 75 70 - 100 mg/dL LAB CHEMISTRY METHOD 2024 11:43 AM [facility] BUN 19 5 - 25 mg/dL LAB CHEMISTRY METHOD 2024 11:43 AM [facility] Creatinine 0.84 0.50 - 1.10 mg/dL LAB CHEMISTRY METHOD 2024 11:43 AM [facility] eGFR 75 >=60 mL/min/1. 73m2 LAB CHEMISTRY METHOD 2024 11:43 AM [facility] Comment:Calculation based on the Chronic Kidney Disease Epidemiology Collaboration (CKD-EPI) equation refit without adjustment for race. BUN/Creatinine Ratio 22.6 LAB CHEMISTRY METHOD 2024 11:43 AM [facility] Calcium 8.0(L) 8.5 - 10.5 mg/dL LAB CHEMISTRY METHOD 2024 11:43 AM [facility] AST (SGOT) 24 10 - 42 unit/L LAB CHEMISTRY METHOD 2024 11:43 AM EDT [facility] ALT (SGPT) 27 10 - 60 unit/L LAB CHEMISTRY METHOD 2024 11:43 AM EDT [facility] Alkaline Phosphatase 109 42 - 121 unit/L LAB CHEMISTRY METHOD 2024 11:43 AM EDT [facility] Total Protein 5.5(L) 6.0 - 8.0 g/dL LAB CHEMISTRY METHOD 2024 11:43 AM EDT [facility] Albumin 2.8(L) 3.2 - 5.0 g/dL LAB CHEMISTRY METHOD 2024 11:43 AM [facility] Total Bilirubin 0.2 0.0 - 1.4 mg/dL LAB CHEMISTRY METHOD 2024 11:43 AM [facility] Blood Venous blood specimen / Unknown Venipuncture / Unknown 2024 7:02 AM EDT 2024 9:52 AM EDT us Glen Pugh MD LAB BLOOD ORDERABLES Final Result [facility] [address] [place] [address], documented in this encounter Visit Diagnoses Diagnosis Essential (primary) hypertension Unspecified essential hypertension Type 2 diabetes mellitus without complications (CMS/HCC V24, [facility]/HCC V28) Other seizures (CMS/HCC V24, CMS/HCC V28) Atherosclerotic heart disease of [place] coronary artery without angina pectoris documented in this encounter Care Teams Hose Finisher Relationship Specialty Start Date End Date Glen Pugh MD [address] [place] [id number] PCP - General 10/14/23 documented as of this encounter
--- OUTSIDE RECORDS SUMMARY | 2025-01-22 10:51 | XMS_ITS ---
Author Organization [facility] Care Team Providers Care Director Outcomes Name Role Phone Jacob Sands Unavailable Unavailable Jenna Salazar Unavailable Unavailable Letty Lyn Unavailable Allergies and adverse reactions Code CodeSystem Substance Reaction Severity StartDate Concern Status 16851 RXNORM Azithromycin Unknown 01/29/2021 active Care Team Name Role Address Phone Organization Dates Jacob Sands PCP [address], [place], [facility], [facility] (Office): : [facility] 01/29/2021 - 02/11/2021 Jenna Salazar [address], [place], [facility], [place] (Office): : [facility] 01/29/2021 - 02/11/2021 Letty Lyn [address], [place], [facility], [facility] (Office): : [facility] 01/29/2021 - 02/11/2021 Immunizations Immunization Status Vaccine Details Vaccine Code CodeSystem Date Notes Influenza completed Influenza, high-dose, split virus, quadrivalent, injectable, preservative free Given intramuscularly 197 CVX created date: 02/09/2021 administere d date: 12/19/2020 SARS-COV-2 (COVID-19) completed SARS-COV-2 (COVID-19) vaccine, mRNA, spike protein, LNP, preservative free, 30 mcg/0.3mL dose Given intramuscularly Step 2 of Multi-step with next step required 208 CVX created date: 01/30/2021 administere d date: 05/08/2020 [facility] SARS-COV-2 (COVID-19) completed SARS-COV-2 (COVID-19) vaccine, mRNA, spike protein, LNP, preservative free, 30 mcg/0.3mL dose Given intramuscularly Step 1 of Multi-step with next step required 208 CVX created date: 01/30/2021 administere d date: 04/17/2020 [facility] Mental Status Section Date Assessment Total Score Description 02/11/2021 BIMS 15 cognitively int act CAM 0 No delirium ind icated PHQ-9 02 minimal depress ion 02/05/2021 BIMS 15 cognitively int act CAM 0 No delirium ind icated PHQ-9 04 minimal depress ion Insurance Providers Problems Problem # Description Date of onset Resolved Date Code CodeSystem Concern Status 1 ATHEROSCLEROTIC HEART DISEASE OF [place] CORONARY ARTERY WITHOUT ANGINA PECTORIS 01/30/[address] active 2 DEPRESSION, UNSPECIFIED 01/30/[address] active 3 ENCOUNTER FOR OTHER ORTHOPEDIC AFTERCARE 01/30/[address] active 4 EPILEPTIC SEIZURES RELATED TO EXTERNAL CAUSES, NOT INTRACTABLE, WITHOUT STATUS EPILEPTICUS 01/30/[address] active 5 ESSENTIAL (PRIMARY) HYPERTENSION 01/30/[address] active 6 HYPERLIPIDEMIA, UNSPECIFIED 01/30/[address] active 7 MUSCLE WEAKNESS (GENERALIZED) 01/30/[address] active 8 NONDISPLACED FRACTURE OF BASE OF NECK OF RIGHT FEMUR, SUBSEQUENT ENCOUNTER FOR CLOSED FRACTURE WITH ROUTINE HEALING 01/30/[address] active 9 OLD MYOCARDIAL INFARCTION 01/30/[address] active 10 OTHER RETENTION OF URINE 01/30/[address] active 11 TOBACCO USE 01/30/20 Z72.0 ICD-10-CM active 12 TYPE 2 DIABETES MELLITUS WITHOUT COMPLICATIONS 01/30/[address] active 13 UNSPECIFIED ABNORMALITIES OF GAIT AND MOBILITY 01/30/[address] active 14 UNSPECIFIED FALL, SUBSEQUENT ENCOUNTER 01/30/[address] active 15 UNSPECIFIED FRACTURE OF RIGHT FEMUR, SUBSEQUENT ENCOUNTER FOR CLOSED FRACTURE WITH ROUTINE HEALING 01/30/[address] active Reason for Referral No Reasons for Referral Entered Social History Social History Observation Description Start Date End Date Code Code System Current Smoking Status Tobacco smoking consumption unknown 867225567 SNOMED CT Sex Assigned At Female 1955 53742-3 [facility] Gender Identity Sexual Orientation Vital Signs Code Code System Vitals Name Values and Units Timing Information 59256-3 [facility] Weight Ojtog=973.4 Units=Lbs 38549-4 [facility] Pain Level Value=0.0 02/11/2021 9279-1 [facility] Respiratory Rate Value=18.0 Units=/m in 02/11/2021 8310-5 [facility] Body Temperature Value=9.79 Units= F 02/11/2021 8867-4 [facility] Heart rate Value=61.0 Units=/min 26966-7 [facility] O2 % dC Oximetry Value=96.0 Units= % 02/11/2021 8462-4 [facility] Blood Pressure-Diastolic Value=64 Un its=mmHg 02/11/2021 8480-6 [facility] Blood Pressure-Systolic Prrvw=988 Un its=mmHg 02/11/2021 8302-2 [facility] Height Value=64.2 Units=Inches 01/29/2021
--- OUTSIDE RECORDS SUMMARY | 2025-01-22 10:51 | XMS_ITS | Encounter Summary ---
Author Organization [facility] [place] [address] Care Team Providers Care Technical Services Manager Name Role Phone Glen Pugh MD Primary Care Provider +1- [phone] Encounter Details Date Type Department Care Team (Late st Contact Info) Description 07/17/2024 Lab Requisition [facility] - Main Lab [address] [place] [id number] Glen Pugh MD [address] [place] [address] Type 2 diabetes mellitus without complications (CMS/HCC V24, CMS/HCC V28); Essential (primary) hypertension; Atherosclerotic heart disease of [place] coronary artery without angina pectoris Social History [...] (primary) hypertension Atherosclerotic heart disease of [place] coronary artery without angina pectoris COMPREHENSIVE METABOLIC PANEL Routine 07/17/2024 7:14 AM EDT Type 2 diabetes mellitus without complications ([facility] V24, [facility] V28) Essential (primary) hypertension Atherosclerotic heart disease of [place] coronary artery without angina pectoris documented in this encounter Results * Hemoglobin A1c (07/17/2024 7:14 AM EDT) [facility] Hemoglobin A1C 5.5 <6.5 % LAB CHEMISTRY METHOD 07/17/2024 12:50 PM EDT [facility] Mean Bld Glu Estim. 111 mg/dL LAB CHEMISTRY METHOD 07/17/2024 12:50 PM EDT [facility] Blood Venous blood specimen / Unknown Venipuncture / Unknown 07/17/2024 7:14 AM EDT 07/17/2024 9:29 AM EDT Glen Pugh MD LAB BLOOD ORDERABLES Final Result [facility] [address] [place] [address], * (ABNORMAL) Comprehensive metabolic panel (07/17/2024 7:14 AM EDT) [facility] Sodium 141 133 - 145 mmol/L LAB CHEMISTRY METHOD 07/17/2024 11:03 AM [facility] Potassium 4.7 3.5 - 5.5 mmol/L LAB CHEMISTRY METHOD 07/17/2024 11:03 AM [facility] Chloride 109 96 - 110 mmol/L LAB CHEMISTRY METHOD 07/17/2024 11:03 AM [facility] CO2 26 21 - 32 mmol/L LAB CHEMISTRY METHOD 07/17/2024 11:03 AM [facility] Anion Gap 6 3 - 11 LAB CHEMISTRY METHOD 07/17/2024 11:03 AM [facility] Glucose 71 70 - 100 mg/dL LAB CHEMISTRY METHOD 07/17/2024 11:03 AM [facility] BUN 21 5 - 25 mg/dL LAB CHEMISTRY METHOD 07/17/2024 11:03 AM [facility] Creatinine 0.87 0.50 - 1.10 mg/dL LAB CHEMISTRY METHOD 07/17/2024 11:03 AM [facility] eGFR 72 >=60 mL/min/1. 73m2 LAB CHEMISTRY METHOD 07/17/2024 11:03 AM [facility] Comment:Calculation based on the Chronic Kidney Disease Epidemiology Collaboration (CKD-EPI) equation refit without adjustment for race. BUN/Creatinine Ratio 24.1 LAB CHEMISTRY METHOD 07/17/2024 11:03 AM [facility] Calcium 8.5 8.5 - 10.5 mg/dL LAB CHEMISTRY METHOD 07/17/2024 11:03 AM [facility] AST (SGOT) 27 10 - 42 unit/L LAB CHEMISTRY METHOD 07/17/2024 11:03 AM [facility] ALT (SGPT) 31 10 - 60 unit/L LAB CHEMISTRY METHOD 07/17/2024 11:03 AM [facility] Alkaline Phosphatase 155(H) 42 - 121 unit/L LAB CHEMISTRY METHOD 07/17/2024 11:03 AM [facility] Total Protein 6.0 6.0 - 8.0 g/dL LAB CHEMISTRY METHOD 07/17/2024 11:03 AM [facility] Albumin 3.0(L) 3.2 - 5.0 g/dL LAB CHEMISTRY METHOD 07/17/2024 11:03 AM [facility] Total Bilirubin 0.4 0.0 - 1.4 mg/dL LAB CHEMISTRY METHOD 07/17/2024 11:03 AM [facility] Blood Venous blood specimen / Unknown Venipuncture / Unknown 07/17/2024 7:14 AM EDT 07/17/2024 9:29 AM EDT us Glen Pugh MD LAB BLOOD ORDERABLES Final Result [facility] [address] [place] [address], documented in this encounter Visit Diagnoses Diagnosis Type 2 diabetes mellitus without complications (CMS/HCC V24, CMS/HCC V28) Essential (primary) hypertension Unspecified essential hypertension Atherosclerotic heart disease of [place] coronary artery without angina pectoris documented in this encounter Care Teams Technical Services Manager Relationship Specialty Start Date End Date Glen Pugh MD [address] [place] [address] PCP - General 10/14/23 documented as of this encounter
--- OUTSIDE RECORDS SUMMARY | 2025-01-22 10:51 | XMS_ITS | Clinical Summary ---
Author Organization [facility] Address [address] [place] [address] Phone Care Team Providers Care Engineer Rf Deployment Name Role Phone Glen Pugh MD Primary Care Provider [phone]- [phone] Encounters Date Type Department Care Team Description 11/06/2024 Lab Requisition [facility] [address] [place] [phone] Glen Pugh MD Other salvage determiner (current) 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; Other hyperlipidemia 2024 Lab Requisition [facility] [address] [place] [phone] Glen Pugh MD Essential (primary) hypertension; Type 2 diabetes mellitus without complications ([facility] V24, CMS/[facility] V28); Other seizures ([facility] V24, [facility] V28); Atherosclerotic heart disease of [place] coronary artery without angina pectoris from Last 3 Months Social History Tobacco [...] Health Maintenance Due Date Last Done Comments Colorectal Cancer Screening: Colonoscopy 1954 Diabetes: Annual Foot Exam 1964 Diabetes: Annual Retina Eye Exam 1964 Hepatitis A Vaccines (1 of 2 - Risk 2-dose series) 1973 RSV Immunization Adult Patients (1 - Risk 50-74 years 1-dose series) 2004 Zoster Vaccines (1 of 2) 2004 Pneumococcal Vaccine: 50+ Years (3 of 3 - PCV20 or PCV21) 01/27/2022 01/27/2017, 04/19/2007 Falls Risk Assessment 02/21/2022 Hepatitis C Screening 02/21/2022 Medicare Annual Wellness Visit 02/21/2022 Social Influencers of Health Screening 02/21/2022 Diabetes: Annual Urine Albumin-Creatinine Ratio (uACR) 03/06/2022 DTaP,Tdap,and Td Vaccines (3 - Td or Tdap) 07/24/2023 07/23/2013, 06/11/2005 Depression Screening 03/21/2024 COVID-19 Vaccine ( season) 2024 Influenza Vaccine (#1) 2024 4, 04/21/2012, 11/24/2010, Additional history exists Diabetes: Blood Sugar Control Test (HGBA1C) 01/16/2025 07/17/2024 Diabetes: Annual GFR (Glomerular Filtration Rate) 2025 2024, 10/09/2024, 09/11/2024, Additional history exists Hypertension/CHF/CAD Annual BMP Blood Test 2025 2024, 10/09/2024, 09/11/2024, Additional history exists Breast Cancer Screening 04/16/2026 04/16/19, 04/14/2023, 06/28/2016, Additional history exists Cholesterol Screening (Lipid Panel) 11/06/2029 11/06/2024, 06/05/2024 Osteoporosis Screening (Bone Density Screening) 03/08/2034 03/08/2024, [...] Diagnosis Comments VALPROIC ACID LEVEL, TOTAL Routine 11/06/2024 7:14 AM EDT Other salvage determiner (current) 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 Other hyperlipidemia LIPID PANEL WITH REFLEX TO DIRECT LDL Routine 11/06/2024 7:14 AM EDT Other detention (current) 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 Other hyperlipidemia COMPREHENSIVE METABOLIC PANEL Routine 2024 7:02 AM EDT Essential (primary) hypertension Type 2 diabetes mellitus without complications (CMS/HCC V24, CMS/HCC V28) Other seizures (CMS/HCC V24, CMS/HCC V28) Atherosclerotic heart disease of [place] coronary artery without angina pectoris HEMOGLOBIN A1C Routine 07/17/2024 7:14 AM EDT Type 2 diabetes mellitus without complications (CMS/HCC V24, CMS/HCC V28) Essential (primary) hypertension Atherosclerotic heart disease of [place] coronary artery without angina pectoris MG MAMMO DIGITAL SCREENING W SULAIMAN BILAT Routine 04/16/2024 9:35 AM EST Encounter for screening mammogram for breast cancer BD BONE DENSITY DXA AXIAL SKELETON Routine 03/08/2024 9:52 AM EST Metabolic bone disease from Last 3 Months or Most Recently Relevant to Health Maintenance Results * Lipid panel with reflex to direct LDL (11/06/2024 7:14 AM EDT) Cholesterol 156 0 - 200 mg/dL LAB CHEMISTRY METHOD 11/06/2024 11:27 AM EDT [facility] Triglycerides 125 0 - 150 mg/dL LAB CHEMISTRY METHOD 11/06/2024 11:27 AM EDT [facility] HDL 60 >=40 mg/dL LAB CHEMISTRY METHOD [facility]/06[facility] LDL Calculated 71 0 - 100 mg/dL LAB CHEMISTRY METHOD 11/06/2024 11:27 AM T [facility] Comment:Estimated LDL Calcul ated using equation: Total cholesterol - HDL cholesterol - (Triglycerides/5) VLDL Cholesterol Irvin 25 mg/dL LAB CHEMISTRY METHOD 11/06/2024 11:27 AM EDT [facility] Non HDL Chol. (LDL+VLDL) 96 <145 mg/dL LAB CHEMISTRY METHOD 11/06/2024 11:27 AM [facility] Chol/HDL Ratio 2.6 0.0 - 4.4 LAB CHEMISTRY METHOD 11/06/2024 11:27 AM [facility] Blood Venous blood specimen / Unknown Venipuncture / Unknown 11/06/2024 7:14 AM EDT 11/06/2024 9:31 AM EDT us Glen Pugh MD LAB BLOOD ORDERABLES Final Result [facility] [address] [place] [address], * (ABNORMAL) Valproic acid level, total (11/06/2024 7:14 AM EDT) Valproic Acid, Total 43(L) 50 - 100 mcg/mL LAB CHEMISTRY METHOD 11/06/2024 11:27 AM [facility] Blood Venous blood specimen / Unknown Venipuncture / Unknown 11/06/2024 7:14 AM EDT 11/06/2024 9:31 AM EDT Glen Pugh MD LAB BLOOD ORDERABLES Final Result [facility] [address] [place] [address], * (ABNORMAL) Comprehensive metabolic panel (2024 7:02 AM EDT) Sodium 142 133 - 145 mmol/L LAB CHEMISTRY METHOD 2024 11:43 AM [facility] Potassium 4.3 3.5 - 5.5 mmol/L LAB CHEMISTRY METHOD 2024 11:43 AM [facility] Chloride 110 96 - 110 mmol/L LAB CHEMISTRY METHOD 2024 11:43 AM [facility] CO2 29 21 - 32 mmol/L LAB CHEMISTRY METHOD 2024 11:43 AM [facility] Anion Gap 3 3 - 11 LAB CHEMISTRY METHOD 2024 11:43 AM [facility] Glucose 75 70 - 100 mg/dL LAB CHEMISTRY METHOD 2024 11:43 AM [facility] BUN 19 5 - 25 mg/dL LAB CHEMISTRY METHOD 2024 11:43 AM [facility] Creatinine 0.84 0.50 - 1.10 mg/dL LAB CHEMISTRY METHOD 2024 11:43 AM [facility] eGFR 75 >=60 mL/min/1. 73m2 LAB CHEMISTRY METHOD 2024 11:43 AM [facility] Comment:Calculation based on the Chronic Kidney Disease Epidemiology Collaboration (CKD-EPI) equation refit without adjustment for race. BUN/Creatinine Ratio 22.6 LAB CHEMISTRY METHOD 2024 11:43 AM [facility] Calcium 8.0(L) 8.5 - 10.5 mg/dL LAB CHEMISTRY METHOD 2024 11:43 AM [facility] AST (SGOT) 24 10 - 42 unit/L LAB CHEMISTRY METHOD 2024 11:43 AM [facility] ALT (SGPT) 27 10 - 60 unit/L LAB CHEMISTRY METHOD 2024 11:43 AM [facility] Alkaline Phosphatase 109 42 - 121 unit/L LAB CHEMISTRY METHOD 2024 11:43 AM [facility] Total Protein 5.5(L) 6.0 - 8.0 g/dL LAB CHEMISTRY METHOD 2024 11:43 AM [facility] Albumin 2.8(L) 3.2 - 5.0 g/dL LAB CHEMISTRY METHOD 2024 11:43 AM [facility] Total Bilirubin 0.2 0.0 - 1.4 mg/dL LAB CHEMISTRY METHOD 2024 11:43 AM [facility] Blood Venous blood specimen / Unknown Venipuncture / Unknown 2024 7:02 AM EDT 2024 9:52 AM EDT us Glen Pugh MD LAB BLOOD ORDERABLES Final Result [facility] [address] [place] [address], * Hemoglobin A1c (07/17/2024 7:14 AM EDT) Hemoglobin A1C 5.5 <6.5 % LAB CHEMISTRY METHOD 07/17/2024 12:50 PM EDT [facility] Mean Bld Glu Estim. 111 mg/dL LAB CHEMISTRY METHOD 07/17/2024 12:50 PM EDT [facility] Blood Venous blood specimen / Unknown Venipuncture / Unknown 07/17/2024 7:14 AM EDT 07/17/2024 9:29 AM EDT us Glen Pugh MD LAB BLOOD ORDERABLES Final Result [facility] [address] [place] [address], [place] [phone] * MG Mammo Digital Screening w Sulaiman bilat (04/16/2024 9:35 AM EST) Anatomical Region Laterality Modality Breast Bilateral Mammography 04/16/2024 9:33 AM EST Impressions 04/16/2024 9:37 AM EST No mammographic evidence of malignancy. A negative mammogram in the presence of a clinically suspicious palpable abnormality does not preclude the possibility of malignancy or alter the indications for biopsy. PQRI CPT II 3342F Code 38319, 52017 PQRI 225 CPT II 7025F TISSUE DENSITY: There are scattered areas of fibroglandular density. (BI-RADS category B) IMPRESSION: Benign. BI-RADS CATEGORY: 2 - BENIGN RECOMMENDATION: Screening bilateral mammogram is recommended in 1 year. Mammo Location: [facility], [address] [place] [id number] -------- FINAL REPORT -------- Dictated By: Vitaly Ho Dictated Date: 04/16/2024 09:33 ET Assigned Physician: Vitaly Ho Reviewed and Electronically Signed By: Vitaly Ho Signed Date: 04/16/2024 09:37 ET Workstation ID: [id number] Transcribed By: Self Edit Transcribed Date: 04/16/2024 09:33 ET Narrative 04/16/2024 9:37 AM EST CLINICAL: The patient is a 68 years Female presenting for routine screening mammography. COMPARISON: 04/14/2023. TECHNIQUE: Full-field digital mammography of the breasts bilaterally consisting of tomosynthesis in MLO and CC projection is performed in the [employer] 2000-D unit. Computer aided detection utilizing the iCAD system was utilized. FINDINGS: The breasts are again seen to be composed of a combination of fatty and fibroglandular elements. A group of microcalcifications in the right breast retroareolar area is stable and remains of benign appearance, likely an involuting fibroadenoma or an area of fat necrosis. Other bilateral calcifications are again seen, most if not all of which are dermal. There is no suspicious cluster of microcalcifications, mass, or area of architectural distortion. There is no skin thickening or nipple retraction. Procedure Note Vitaly Ho MD - 04/16/2024 CLINICAL: The patient is a 68 years Female presenting for routinescreening mammography. COMPARISON: 04/14/2023. TECHNIQUE: Full-field digital mammography of the breasts bilaterallyconsisting of tomosynthesis in MLO and CC projection is performed in the[employer] 2000-D unit. Computer aided detection utilizing the [...] for biopsy. PQRI CPT II 3342F Code 92188, 41503 PQRI 225 CPT II 7025F TISSUE DENSITY: There are scattered areas of fibroglandular density.(BI-RADS category B) IMPRESSION: Benign. BI-RADS CATEGORY: 2 - BENIGN RECOMMENDATION: Screening bilateral mammogram is recommended in 1 year. Mammo Location: [facility], [address] [place] [id number] -------- FINAL REPORT -------- Dictated By: Vitaly Ho Dictated Date: 04/16/2024 09:33 ET Assigned Physician: Vitaly Ho Reviewed and Electronically Signed By: Vitaly Ho Signed Date: 04/16/2024 09:37 ET Workstation ID: [id number] Transcribed By: Self Edit Transcribed Date: 04/16/2024 09:33 ET us Self Referral Sppl IMG BI PROCEDURES Final Resul t * BD Bone Density DXA Axial Skeleton (03/08/2024 9:52 AM EST) Anatomical Region Laterality Modality Wrist, Hip, L-spine Bone Densito metry 03/08/2024 11:0 5 AM EST Impressions 03/08/2024 11:08 AM EST 1. Osteoporosis. There has been a decrease of 0.9% in bone mineral density in the lumbar spine since the prior examination of 06/29/2021. There has been a decrease of 4.8% in bone mineral density in the left femur. 2. FRAX analysis yields a 10-year probability of major osteoporotic fracture of 27.0% and a 10-year probability of hip fracture of 11.1%. Code 42181 -------- FINAL REPORT -------- Dictated By: Vitaly Ho Dictated Date: 03/08/2024 11:05 ET Assigned Physician: Vitaly Ho Reviewed and Electronically Signed By: Vitaly Ho Signed Date: 03/08/2024 11:08 ET Workstation ID: [id number] Transcribed By: Self Edit Transcribed Date: 03/08/2024 11:05 ET Narrative 03/08/2024 11:08 AM EST HISTORY: The patient is a 68-year-old postmenopausal female smoker with clinical concern for metabolic bone disease. FINDINGS: Dual [...] 91% of that of age matched controls. This yields a T-score of -1.9 and a Z-score of -0.6 which is diagnostic of osteopenia. However, the T-score of the left femoral neck is -2.7 which is diagnostic of osteoporosis. Procedure Note Vitaly Ho MD - 03/08/2024 HISTORY: The patient is a 68-year-old postmenopausal female smoker withclinical concern for metabolic bone disease. FINDINGS: Dual energy x-ray absorptiometry of the lumbar spine and leftfemur is performed. The mean bone mineral density at L1-3 is 0.991 gm/[id number] is 85% of that of young normals [...] probability of hip fracture of 11.1%. Code 70342 -------- FINAL REPORT -------- Dictated By: Vitaly Ho Dictated Date: 03/08/2024 11:05 ET Assigned Physician: Vitaly Ho Reviewed and Electronically Signed By: Vitaly Ho Signed Date: 03/08/2024 11:08 ET Workstation ID: [id number] Transcribed By: Self Edit Transcribed Date: 03/08/2024 11:05 ET Glen Pugh MD IMG DXA PROCEDURES Final R esult from Last 3 Months or Most Recently Relevant to Health Maintenance Insurance MEDICAID [place] [employer] MEDICARE ADVANTAGE [employer] MEDICARE MEDICARE Care Teams Engineer Rf Deployment Relationship Specialty Start Date End Date Glen Pugh MD [address] [place] [address] PCP - General 10/14/23
--- OUTSIDE RECORDS SUMMARY | 2025-01-22 10:51 | XMS_ITS | Encounter Summary ---
Author Organization [facility] [place] [address] Care Team Providers Care Swine Genetics Researcher Name Role Phone Glen Pugh MD Primary Care Provider [phone]- [phone] Encounter Details Date Type Department Care Team (Late st Contact Info) Description 11/06/2024 Lab Requisition [facility] [address] [facility] [place] [phone] Glen Pugh MD [address] [place] [address] Other intermodal customer service (current) 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; Other hyperlipidemia Social History Tobacco Use Types Packs/Day Years [...] LDL Routine 11/06/2024 7:14 AM EDT Other chcf (current) 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 Other hyperlipidemia VALPROIC ACID LEVEL, TOTAL Routine 11/06/2024 7:14 AM EDT Other intermodal customer service (current) 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 Other hyperlipidemia documented in this encounter Results * (ABNORMAL) Valproic acid level, total (11/06/2024 7:14 AM EDT) Valproic Acid, Total 43(L) 50 - 100 mcg/mL LAB CHEMISTRY METHOD 11/06/2024 11:27 AM [facility] Blood Venous blood specimen / Unknown Venipuncture / Unknown 11/06/2024 7:14 AM EDT 11/06/2024 9:31 AM EDT Glen Pugh MD LAB BLOOD ORDERABLES Final Result [facility] [address] [place] [address], [place] [phone] * Lipid panel with reflex to direct LDL (11/06/2024 7:14 AM EDT) Cholesterol 156 0 - 200 mg/dL LAB CHEMISTRY METHOD 11/06/2024 11:27 AM [facility] Triglycerides 125 0 - 150 mg/dL LAB CHEMISTRY METHOD 11/06/2024 11:27 AM [facility] HDL 60 >=40 mg/dL LAB CHEMISTRY METHOD 11/06/2024 11:27 AM [facility] LDL Calculated 71 0 - 100 mg/dL LAB CHEMISTRY METHOD 11/06/2024 11:27 AM [facility] Comment:Estimated LDL Calcul ated using equation: Total cholesterol - HDL cholesterol - (Triglycerides/5) VLDL Cholesterol Irvin 25 mg/dL LAB CHEMISTRY METHOD 11/06/2024 11:27 AM [facility] Non HDL Chol. (LDL+VLDL) 96 <145 mg/dL LAB CHEMISTRY METHOD 11/06/2024 11:27 AM [facility] Chol/HDL Ratio 2.6 0.0 - 4.4 LAB CHEMISTRY METHOD 11/06/2024 11:27 AM [facility] Blood Venous blood specimen / Unknown Venipuncture / Unknown 11/06/2024 7:14 AM EDT 11/06/2024 9:31 AM EDT Glen Pugh MD LAB BLOOD ORDERABLES Final Result [facility] [address] [place] [address], documented in this encounter Visit Diagnoses Diagnosis Other chcf (current) 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 Other hyperlipidemia documented in this encounter Care Teams Swine Genetics Researcher Relationship Specialty Start Date End Date Glen Pugh MD [address] [place] [phone] PCP - General 10/14/23 documented as of this encounter
== END 2025-01-22 10:15 | disposition home or self-care (01) ==
LOC: HO.HCS 09:38
PROVIDERS: PCP Internal Medicine; Visit Provider Nurse Practitioner Family
DX: I25.10 Atherosclerotic heart disease of native coronary artery without angina pectoris (principal); I35.0 Nonrheumatic aortic (valve) stenosis; I10 Essential (primary) hypertension; F17.200 Nicotine dependence, unspecified, uncomplicated; R94.31 Abnormal electrocardiogram [ECG] [EKG]
CPT/HCPCS: 99214; G2211

== ENCOUNTER → 2025-01-22 09:38 | Outpatient (BNVA) | payer MEDICARE, MEDICAID, SELFPAY | PROVIDERS: PCP Internal Medicine; Visit Provider Nurse Practitioner Family | DX: I25.10 Atherosclerotic heart disease of native coronary artery without angina pectoris (principal); I35.0 Nonrheumatic aortic (valve) stenosis; I10 Essential (primary) hypertension; R94.31 Abnormal electrocardiogram [ECG] [EKG]; F17.200 Nicotine dependence, unspecified, uncomplicated | CPT/HCPCS: 99212 ==